=== PATIENT | male | born 1960 | race Caucasian/White ===

== ENCOUNTER 2020-03-02 11:49 | Emergency (ER) | payer MEDICAID, SELFPAY ==
--- NOTE | 2020-03-02 | ECG_ITS ---
Test Reason : WEAKNESS Blood Pressure : / mmHG Vent. Rate : 074 BPM Atrial Rate : 074 BPM P-R Int : 162 ms QRS Dur : 090 ms QT Int : 456 ms P-R-T Axes : 043 031 030 degrees QTc Int : 506 ms Normal sinus rhythm Prolonged QT Abnormal ECG When compared with ECG of 30-JAN-2020 15:24, Vent. rate has decreased BY 75 BPM Nonspecific T wave abnormality no longer evident in Anterolateral leads QT has lengthened Referred By: Mayela Boland Electronically Signed By:DARSHAN RODRIGEZ
--- NOTE | 2020-03-02 | CT_ITS ---
EXAMINATION: CT ANGIOGRAM OF THE CHEST WITH AND WITHOUT CONTRAST (CT PULMONARY ANGIOGRAM FOR PE) CLINICAL INFORMATION: Reason for Exam SOB/CP, r/o PE COMPARISON: CT of the abdomen and pelvis from January 2020 and chest CTA June 2017 TECHNIQUE: Prior to contrast administration, noncontrast localization images were obtained. Subsequently, multidetector volumetric imaging was performed from the thoracic inlet to below the diaphragms following the administration of 71 mL Omnipaque 350 intravenous contrast. No contrast reaction reported Sagittal, coronal, and MIP oblique sagittal reformatted images were obtained on the CT workstation, uploaded to PACS, and reviewed. This CT examination was performed using dose optimization techniques as appropriate, variously including the following: *Automated exposure control *Adjustment of mA and/or kV according to patient size (this includes techniques or standardized protocols for targeted exams where dose is matched to indication/reason for exam; i.e. extremities or head) *Use of iterative reconstruction technique Total exam dose-length product 357 mGy-cm FINDINGS: QUALITY OF STUDY/CONTRAST BOLUS: Satisfactory. PULMONARY ARTERIES: No central or segmental pulmonary emboli. THORACIC AORTA: No aneurysm or dissection. LUNG: The lungs are clear. PLEURA: There is a small left pleural effusion. There is no right pleural effusion. MEDIASTINUM: Normal heart size. No pericardial effusion. No hilar or mediastinal lymphadenopathy. No evidence of septal bowing or right heart strain. CHEST WALL/AXILLA: No axillary or internal mammary lymphadenopathy. OSSEOUS STRUCTURES: There are left lateral fifth and sixth and left posterior ninth and 10th posterior rib fractures that appear recent. There are old right rib fractures. There is a T9 vertebral body compression fracture that appears unchanged from abdominal pelvic CT scans from January 2020. There is loss of height of the T3-T6, T11 and T12 vertebral bodies questionable for mild compression fractures versus Schmorl's nodes. These findings are new compared to old chest CT a from June 2017. UPPER ABDOMEN: There are 2 small stones in the upper pole of the right kidney. The liver appears cirrhotic. There are small peripheral calcifications in the right lobe of the liver. The gallbladder has been removed. The spleen has been removed. There are upper abdominal varices. There are postsurgical changes to the anterior abdominal wall. No reflux of contrast into the hepatic veins to suggest elevated right heart pressures. IMPRESSION: No evidence of pulmonary embolism. Small left pleural effusion. Recent appearing left rib fractures. VTE: negative
[2020-03-02 12:22] VITALS: BP 152/84; PULSE 75; RESP 16; O2SAT 98; BMI 29.7
--- NOTE | 2020-03-02 12:37 | ED.GENADULT ---
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 Pt here telling me is here for suture removal. He tells me he had sutures placed after his surgery and never followed up for removal. Of note, he signed out AMA from [facility] and then was admitted to this facility 02/06-02/09 for anemia, hypotension, liver cirrhosis and depression. He denies fevers/chills, but believes sutures may still be present at his surgica site. Does not recall his surgeons name and has not followed up outpatient. He does tell me for 3 days he has had some SOB with exertion, chest pain and cough. No leg or calf pain. Not on anticoagulation. Patient does tell me that he is continuing to use heroin. His last use was yesterday. He denies any history of IV drug abuse. Onset (ago): day(s) Location: chest Radiation: non-radiation Severity: mild Quality: sharp Pain Consistency: constant Exacerbating factors: movement Associated symptoms: cough and shortness of breath Treatments prior to arrival: none Related Data Allergies Allergy/AdvReac Type Severity Reaction Status Date / Time acetaminophen [From TYLENOL] Allergy Unknown UNK Unverified 02/12/20 16:33 codeine [CODEINE] Allergy Unknown RASH Unverified 02/12/20 16:33 pneumococcal vaccine Allergy Unknown PARALYSIS Unverified 02/12/20 16:33 [PNEUMOCOCCAL VACCINE] tuberculin, purified protein Allergy Unknown RASH Unverified 02/12/20 16:33 deriva [TUBERCULIN, PURIFIED PROTEIN DERIVA] venlafaxine [From EFFEXOR] AdvReac Unknown UNKNOWN Unverified 02/12/20 16:33 Review of Systems Review of Systems: Yes all other systems are reviewed and are negative Constitutional: Constitutional: Reports no additional constitutional complaints, Denies body ache(s), Denies chills, Denies fever(s), Denies headache(s) and Denies weakness Eyes: Eyes: Reports no additional eye complaints and Denies change in vision ENT: Reports system reviewed and no additional complaints, except as documented, Denies dizziness, Denies headache(s), Denies nasal congestion, Denies nasal discharge and Denies neck pain Cardiovascular: Cardiovascular: Reports no additional cardiovascular complaints, Reports chest pain, Denies claudication, Denies leg ulcers, Denies leg edema, Denies lightheadedness and Reports dyspnea on exertion Respiratory: Respiratory: Reports no additional respiratory complaints, Reports cough, Reports pain on inspiration and Reports dyspnea on exertion Gastrointestinal: Gastrointestinal: Reports no additional gastrointestinal complaints, Denies abdominal pain, Denies diarrhea, Denies nausea and Denies vomiting Musculoskeletal: Musculoskeletal: Reports no additional musculoskeletal complaints, Denies back pain, Denies joint swelling, Denies neck pain, Denies numbness and Denies tingling Integumentary/Breasts: Skin/Breast: Reports system reviewed and no additional complaints, except as docu and Denies rash Neurologic: Reports system reviewed and no additional complaints, except as documented, Denies Abnormal speech present, Denies dizziness, Denies headache(s), Denies numbness, Denies tingling and Denies weakness PMFSH Past Medical History Attestation statement: The following information was validated with the patient. Source: obtained from family and nursing notes reviewed Social History Social History Alcohol intake: never Smoking Status: Current every day smoker Smoked in Last 30 Days: Yes Use of substances other than those prescribed or required for medical reasons: Yes Substance Use Type: Crack/Cocaine, Heroin and Opiates Advance Directives: No Advance Directives Information Provided: No Physical Exam Vital Signs and I&O and Narrative: Vital Signs and I&O: Vital Signs Temp 98.0 F 03/02/20 14:16 Pulse 68 03/02/20 14:16 Resp 16 03/02/20 14:16 BP 148/78 H 03/02/20 14:16 Pulse Ox 97 03/02/20 14:16 Intake & Output 03/01/20 03/02/20 03/02/20 18:59 06:59 18:59 Weight 102.058 kg Body Mass Index 29.7 Const: General: cooperative, healthy appearing, comfortable and no acute distress Orientation/consciousness: patient oriented x3 Limitations: no limitations HENMT: Head: Yes normal to inspection Ears: hearing grossly normal bilaterally General nose exam: Normal external nose present Face and sinus: Yes normal facial exam Mouth: Normal oral and palatal mucosa present Throat: Yes posterior oropharynx normal Eyes: General: appearance normal, both eyes and all related structures Pupils: Equal, round and reactive pupils present Neck: Neck: Yes normal visual inspection Chest: Chest palpation & inspection: normal inspection of the chest and tenderness ( Worsened with deep breathing and palpation and movement) sternum Resp: Effort & Inspection: normal respiratory effort Auscultation: clear to auscultation bilaterally Cardio: Rate: regular rate Rhythm: regular rhythm Peripheral pulses: Peripheral pulses 2+ throughout GI: Inspection: Yes normal to inspection Palpation (GI): Soft to palpation and nontender Auscultation: normal bowel sounds Back/Spine/Pelvis: Thoracic/Lumbar Spine: thoracic and lumbar spine normal to inspection Skin: Other: midline healing surgical incision noted. No sutures present. There is 1 small area less than 1 mm of erythema shelter down the incisional site with no fluctuance or drainage noted. General skin exam: no rashes or lesions noted Neuro: General: patient oriented x3 Cranial nerves: Yes Equal, round and reactive pupils present Cognition (Neuro): normal cognition Speech: No Abnormal speech present Gait exam (Neuro): Normal gait present Motor exam (neuro): 5/5 motor strength present throughout Extrem: General: Yes normal to inspection Course Reevaluation(s) Reevaluation #1: Elevated D-dimer. CTA to rule out PE ordered Time: 14:24 Reevaluation #2: CTA Negative for PE. Chest x-ray, EKG unremarkable. All other labs unchanged from baseline. Troponin indeterminate range. Will plan for 3 hour troponin now. Time: 16:30 Reevaluation #3: Repeat troponin unchanged. Plan for discharge Medical Decision Making [facility] Narrative Medical decision making narrative: Patient is here with pleuritic chest pain, shortness of breath and cough for the last few days in the setting of a recent surgical procedure. He will need labs, EKG, chest x-ray and a D-dimer. 1800- Low concern for ACS with atypical symptoms, unremarkable EKG and 2 troponins which are indeterminate. Low concern for PE with negative CTA. Low concern for endocarditis with no leukocytosis, shift or fever. pain is more musculoskeletal on exam. Discussed findings with the patient. We discussed follow-up with the primary care doctor. His incisional site appears to be healing. There is 1 very small area of redness and I discussed using topical antibiotic ointment on this. We also discussed that he has missed his follow-up with his surgeon. He should resume follow-up as previously scheduled. Reviewed worrisome signs and symptoms and when to return to the emergency department. Comfortable discharge home. Lab Data Result diagrams: 03/02/20 13:29 03/02/20 13:29 Labs: Lab Results 03/02/20 03/02/20 03/02/20 Range/Units 13:29 13:29 13:29 WBC 7.0 (4.8-10.8) X10*3/uL RBC 3.95 L (4.60-5.80) X10*6/uL Hgb 11.3 L (14.0-18.0) g/dl Hct 36.0 L (42-52) % MCV 91.1 (80-98) fL MCH 28.6 (27.0-33.0) pg MCHC 31.4 (31.0-36.0) g/dl RDW 17.1 H (11.0-16.0) % Plt Count 294 (160-400) X10*3/uL MPV 10.4 (9.4-12.4) fL Immature Gran % (Auto) 0.1 (0.0-0.4) % Neut % (Auto) 56.4 (45-73) % Lymph % (Auto) 27.7 (20-40) % [place] % (Auto) 15.2 H (2-11) % Eos % (Auto) 0.3 (0-4) % Baso % (Auto) 0.3 (0-2) % Neut # (Auto) 3.9 (2.0-8.3) X10*3/uL Lymph # (Auto) 1.9 (1.2-4.9) X10*3/uL [place] # (Auto) 1.1 (0.1-1.2) X10*3/uL Eos # (Auto) 0.0 (0.0-0.4) X10*3/uL Baso # (Auto) 0.0 (0.0-0.2) X10*3/uL Abs Immat Gran (auto) 0.01 (0.00-0.03) X10*3/uL Absolute Nucleated RBC 0.000 (0.0-0.012) X10*3/uL Nucleated RBC % (auto) 0.0 (0.0-0.2) /100WBC PT 15.1 H (10.8-13.0) SEC INR 1.3 H (0.9-1.1) D-Dimer 1551 NG/ML Sodium 144 (135-145) mmol/L Potassium 4.0 (3.3-5.1) mmol/l Chloride 105 (96-108) mmol/L Carbon Dioxide 30 H (22-29) mmol/L Anion Gap 13 (12-20) BUN 11 (9-16) mg/dL Creatinine 0.64 (0.5-1.4) mg/dL Estim Creat Clear Calc 154.1 Estimated GFR > 60 Random Glucose 96 (60-115) mg/dL Calcium 8.8 (8.4-10.2) mg/dL Magnesium 1.7 (1.6-2.6) mg/dL Total Bilirubin 1.4 H (0.0-1.0) mg/dL Direct Bilirubin 0.8 H (0.0-0.5) mg/dL AST 55 H (5-37) U/L ALT 33 (0-40) U/L Alkaline Phosphatase 197 H (39-117) U/L Troponin I High Sens (<3.5-35.0) ng/L Total Protein 7.3 (6.5-8.0) g/dL Albumin 3.0 L (3.5-5.0) g/dL 03/02/20 03/02/20 Range/Units 13:29 16:47 WBC (4.8-10.8) X10*3/uL RBC (4.60-5.80) X10*6/uL Hgb (14.0-18.0) g/dl Hct (42-52) % MCV (80-98) fL MCH (27.0-33.0) pg MCHC (31.0-36.0) g/dl RDW (11.0-16.0) % Plt Count (160-400) X10*3/uL MPV (9.4-12.4) fL Immature Gran % (Auto) (0.0-0.4) % Neut % (Auto) (45-73) % Lymph % (Auto) (20-40) % [place] % (Auto) (2-11) % Eos % (Auto) (0-4) % Baso % (Auto) (0-2) % Neut # (Auto) (2.0-8.3) X10*3/uL Lymph # (Auto) (1.2-4.9) X10*3/uL [place] # (Auto) (0.1-1.2) X10*3/uL Eos # (Auto) (0.0-0.4) X10*3/uL Baso # (Auto) (0.0-0.2) X10*3/uL Abs Immat Gran (auto) (0.00-0.03) X10*3/uL Absolute Nucleated RBC (0.0-0.012) X10*3/uL Nucleated RBC % (auto) (0.0-0.2) /100WBC PT (10.8-13.0) SEC INR (0.9-1.1) D-Dimer NG/ML Sodium (135-145) mmol/L Potassium (3.3-5.1) mmol/l Chloride (96-108) mmol/L Carbon Dioxide (22-29) mmol/L Anion Gap (12-20) BUN (9-16) mg/dL Creatinine (0.5-1.4) mg/dL Estim Creat Clear Calc Estimated GFR Random Glucose (60-115) mg/dL Calcium (8.4-10.2) mg/dL Magnesium (1.6-2.6) mg/dL Total Bilirubin (0.0-1.0) mg/dL Direct Bilirubin (0.0-0.5) mg/dL AST (5-37) U/L ALT (0-40) U/L Alkaline Phosphatase (39-117) U/L Troponin I High Sens 6.0 6.9 (<3.5-35.0) ng/L Total Protein (6.5-8.0) g/dL Albumin (3.5-5.0) g/dL ECG Data Attestation: I personally reviewed and interpreted this ECG as follows: Interpretation: EKG 1409 shows NSR, Normal ST, Normal [place], prolonged QT 506 Discharge Plan Discharge Clinical Impression: Chest wall pain, Substance abuse Patient Disposition: Home, Self-Care Instructions: Chest Wall Pain (ED), Opioid Use Disorder (ED) Additional Instructions: It is very Important that you follow-up with your surgeon as previously recommended. Apply topical antibiotic ointment to your surgical incision site. Please stop using heroin. Call the Care Center tomorrow to get started on Suboxone as discussed. Referrals: [facility] [Primary Care Provider] - 2 days
[2020-03-02 13:34] LABS: MANUAL DIFF FLAG NO
[2020-03-02 13:36] LABS: Basophils Percent Auto 0.3 % (0-2); Eosinophils Percent Auto 0.3 % (0-4); Hemoglobin 11.3 g/dl (14.0-18.0); Imm Gran Abs Auto 0.01 X10*3/uL (0.00-0.03); Imm Gran Pct Auto 0.1 % (0.0-0.4); Lymphocytes Absolute Auto 1.9 X10*3/uL (1.2-4.9); Lymphocytes Percent Auto 27.7 % (20-40); Mean Corpuscular HGB Conc 31.4 g/dl (31.0-36.0); Mean Corpuscular Hemoglobin 28.6 pg (27.0-33.0); Mean Corpuscular Volume 91.1 fL (80-98); Mean Platelet Volume 10.4 fL (9.4-12.4); Monocytes Absolute Auto 1.1 X10*3/uL (0.1-1.2); Monocytes Percent Auto 15.2 % (2-11); Neutrophils Absolute Auto 3.9 X10*3/uL (2.0-8.3); Neutrophils Percent Auto 56.4 % (45-73); Platelet Count 294 X10*3/uL (160-400); Red Blood Count 3.95 X10*6/uL (4.60-5.80); Red Cell Distribution Width 17.1 % (11.0-16.0)
[2020-03-02 13:45] LABS: INTERNATIONAL NORM RATIO 1.3 (0.9-1.1); Prothrombin Time 15.1 SEC (10.8-13.0)
[2020-03-02 13:58] LABS: D Dimer 1551 NG/ML
[2020-03-02 14:09] LABS: Alanine Aminotransferase 33 U/L (0-40); Alkaline Phosphatase 197 U/L (39-117); Anion Gap 13 (12-20); Aspartate Amino Transferase 55 U/L (5-37); Bilirubin Direct 0.8 mg/dL (0.0-0.5); Bilirubin Total 1.4 mg/dL (0.0-1.0); Blood Urea Nitrogen 11 mg/dL (9-16); Calcium 8.8 mg/dL (8.4-10.2); Carbon Dioxide 30 mmol/L (22-29); Chloride 105 mmol/L (96-108); Creatinine Clr Calc Pharmacy 154.1; Estimated Glomerular Filt Rate > 60; Glucose Random 96 mg/dL (60-115); Magnesium 1.7 mg/dL (1.6-2.6); Sodium 144 mmol/L (135-145); Total Protein 7.3 g/dL (6.5-8.0)
[2020-03-02 14:16] VITALS: BP 148/78; PULSE 68; RESP 16; TEMP 36.7; O2SAT 97
[2020-03-02] MEDS: iohexoL 350 MG/ML 100 ML INFUS..BTL IV (15:04)
[2020-03-02 17:36] LABS: Troponin-I High Sensitivity 6.9 ng/L (<3.5-35.0)
[2020-03-02 17:49] VITALS: BP 144/72; PULSE 76; RESP 12; TEMP 36.7; O2SAT 97
== END 2020-03-02 18:11 | disposition home or self-care (01) ==
PROVIDERS: Nurse Practitioner Family; Emergency Provider Emergency Medicine
DX: R07.89 Other chest pain (principal); F11.10 Opioid abuse, uncomplicated; F14.90 Cocaine use, unspecified, uncomplicated; Z71.51 Drug abuse counseling and surveillance of drug abuser; F17.200 Nicotine dependence, unspecified, uncomplicated; Z71.6 Tobacco abuse counseling; Z48.02 Encounter for removal of sutures
CPT/HCPCS: 36415; 71275; 80048; 80076; 83735; 84484; 85025; 85379; 85610; 93005; 93010; 99284

== ENCOUNTER 2020-03-04 16:46 | Inpatient (IN) | payer OTHER, SELFPAY ==
--- NOTE | 2020-03-04 | XR_ITS ---
EXAMINATION: XR CHEST CLINICAL INFORMATION: Chest pain. Status post splenectomy. COMPARISON: CT chest 03/02/2020 TECHNIQUE: 2 views of the chest were obtained. FINDINGS: No significant abnormality is noted involving the heart, lungs, mediastinum, bony thorax or soft tissues. IMPRESSION: Unremarkable examination.
[2020-03-04 16:55] VITALS: BP 171/83; PULSE 67; RESP 16; TEMP 37.1; O2SAT 99; BMI 29.7
--- NOTE | 2020-03-04 18:42 | ECG_ITS ---
Test Reason : ETOH Blood Pressure : / mmHG Vent. Rate : 085 BPM Atrial Rate : 058 BPM P-R Int : 000 ms QRS Dur : 080 ms QT Int : 436 ms P-R-T Axes : 000 023 026 degrees QTc Int : 518 ms Atrial fibrillation Nonspecific ST abnormality Abnormal ECG When compared with ECG of 02-MAR-2020 14:09, Atrial fibrillation has replaced Sinus rhythm Referred By: Joycelyn Garcia Electronically Signed By:GREGG HOYT MD
[2020-03-04 20:49] LABS: MANUAL DIFF FLAG NO
[2020-03-04 20:52] VITALS: BP 123/75; PULSE 73; RESP 16; O2SAT 96
[2020-03-04 20:56] LABS: Basophils Percent Auto 0.4 % (0-2); Eosinophils Absolute Auto 0.2 X10*3/uL (0.0-0.4); Eosinophils Percent Auto 2.8 % (0-4); Hematocrit 36.1 % (42-52); Hemoglobin 11.8 g/dl (14.0-18.0); Imm Gran Abs Auto 0.01 X10*3/uL (0.00-0.03); Imm Gran Pct Auto 0.1 % (0.0-0.4); Lymphocytes Absolute Auto 3.2 X10*3/uL (1.2-4.9); Lymphocytes Percent Auto 42.3 % (20-40); Mean Corpuscular HGB Conc 32.7 g/dl (31.0-36.0); Mean Corpuscular Hemoglobin 29.6 pg (27.0-33.0); Mean Corpuscular Volume 90.5 fL (80-98); Mean Platelet Volume 10.6 fL (9.4-12.4); Monocytes Absolute Auto 1.3 X10*3/uL (0.1-1.2); Monocytes Percent Auto 17.7 % (2-11); Neutrophils Absolute Auto 2.7 X10*3/uL (2.0-8.3); Neutrophils Percent Auto 36.7 % (45-73); Red Blood Count 3.99 X10*6/uL (4.60-5.80); Red Cell Distribution Width 17.1 % (11.0-16.0); White Blood Count 7.5 X10*3/uL (4.8-10.8)
[2020-03-04 21:01] LABS: Platelet Count 215 X10*3/uL (160-400)
--- NOTE | 2020-03-04 21:15 | ED_ITS ---
HPI - Psych General Chief Complaint: Psychiatric Symptoms Stated Complaint: Crisis Time Seen by Provider: 03/04/20 18:41 Source: patient Mode of arrival: ambulatory Limitations: no limitations History of Present Illness HPI Narrative: patient presents with suicidal ideation, and chest pain. States the chest pain is intermittent and is status post splenectomy On January 30, 2020. he does not describe plan but states to be depressed and has not taken his medication as scheduled. He does have bilateral lower extremity swelling per baseline, and reports to have a distant history of atrial fibrillation. Patient denies palpitations, shortness of breath, abdominal pain, abdominal distention, dysuria, hematuria, and headache. MD complaint: suicidal ideation, feels depressed and anxiety Onset (ago): day(s) Duration: constant History of same: Yes Relieving factors: none Exacerbating factors: none Associated psychiatric symptoms: depression, suicidal ideation and racing thoughts Associated symptoms: denies other symptoms Treatments prior to arrival: none If self harm: admits thoughts of self harm Related Data Allergies Allergy/AdvReac Type Severity Reaction Status Date / Time acetaminophen [From TYLENOL] Allergy Unknown UNK Verified 03/04/20 16:58 codeine [CODEINE] Allergy Unknown RASH Verified 03/04/20 16:58 pneumococcal vaccine Allergy Unknown PARALYSIS Verified 03/04/20 16:58 [PNEUMOCOCCAL VACCINE] tuberculin, purified protein Allergy Unknown RASH Verified 03/04/20 16:58 deriva [TUBERCULIN, PURIFIED PROTEIN DERIVA] venlafaxine [From EFFEXOR] AdvReac Unknown UNKNOWN Verified 03/04/20 16:58 Review of Systems 2 Review of Systems: Constitutional: No Fever, No Chills ENT/Mouth: No Ear Pain, No Nasal Congestion, No sore throat Eyes: No Eye Pain, No Swelling, No Redness Cardiovascular: Reports chest pain, No SOB Respiratory: No Cough, No Sputum, No Dyspnea Gastrointestinal: No Nausea, No Vomiting, No Diarrhea, No Hematochezia, No Melena Genitourinary: No Dysuria, No Urinary Frequency, No Hematuria Musculoskeletal: No Myalgias Skin: No Skin Lesions, No rash Neuro: No Weakness, No Numbness, No Paresthesias, No Dizziness, No Headache Psych: positive Anxiety, positive Depression, positive SI/HI Heme/Lymph: No Lymphadenopathy Endocrine: No Polyuria, No Polydipsia PMFSH Past Medical History Attestation statement: The following information was validated with the patient. Source: old records reviewed Medical History Anxiety Depression Diabetes HTN (hypertension) Suicidal ideations Social History Social History Alcohol intake: never Smoking Status: Current every day smoker Substance Use Type: Crack/Cocaine, Heroin and Opiates Advance Directives: No Advance Directives Information Provided: No Physical Exam Vital Signs and I&O and Narrative: Vital Signs and I&O: Vital Signs Temp 98.7 F 03/04/20 16:55 Pulse 74 03/04/20 23:23 Resp 18 03/05/20 00:00 BP 141/71 H 03/04/20 23:23 Pulse Ox 97 03/04/20 23:23 Intake & Output 03/04/20 03/04/20 03/05/20 06:59 18:59 06:59 Weight 102.058 kg Body Mass Index 29.7 Appearance: Alert. Oriented X3. No acute distress. Eyes: Pupils equal, round and reactive to light. ENT: Pharynx normal. Neck: Normal inspection. Neck supple. CVS: Normal heart rate and rhythm. Pulses normal. Respiratory: No respiratory distress. Breath sounds normal. Abdomen: Soft and nontender. Skin: Skin warm and dry. Normal skin color. Normal skin turgor. Extremities: No lower extremity edema. No lower extremity edema. Neuro: Oriented X 3. No motor deficit. No sensory deficit. Course Course Course Narrative: 59-year-old male presents with suicidal ideation and chest pain, status post splenectomy on 01/30/2020. We will rule out ACS, infection, drug abuse. EKG shows AFib with nonspecific ST wave abnormality with prolonged QT interval. troponin is 6.7 which is an improvement from prior EKG troponin on 03/02/2020 which was 6.9, urinalysis is positive for opioids, H&H is 11.8/36.1 which has improved from 03/02/2020. At this time patient is medically cleared, BHN consult pending. MDM - Psych MDM Narrative Medical decision making narrative: Chest pain, rule out ACS Differential Diagnosis Differential diagnosis: Likely acute psychosis, suicidal ideation, bipolar disorder, depression, drug-induced psychotic disorder, acute anxiety and substance abuse Restraints Face to Face Assessment: Face to Face Assessment: Current Situation: After assessment of the patient, a review of the pertinent medical record and a discussion with nursing staff, I feel the patient requires a restrain intervention. Reaction To: [] Medical Condition: [] Behavioral State: [] Continued Need: [] Lab Data Attestation: I reviewed the patient's lab results. Result diagrams: 03/04/20 20:44 Labs: Lab Results 03/04/20 03/04/20 03/04/20 Range/Units 20:44 20:44 20:44 WBC 7.5 (4.8-10.8) X10*3/uL RBC 3.99 L (4.60-5.80) X10*6/uL Hgb 11.8 L (14.0-18.0) g/dl Hct 36.1 L (42-52) % MCV 90.5 (80-98) fL MCH 29.6 (27.0-33.0) pg MCHC 32.7 (31.0-36.0) g/dl RDW 17.1 H (11.0-16.0) % Plt Count 215 D (160-400) X10*3/uL MPV 10.6 (9.4-12.4) fL Immature Gran % (Auto) 0.1 (0.0-0.4) % Neut % (Auto) 36.7 L (45-73) % Lymph % (Auto) 42.3 H (20-40) % [place] % (Auto) 17.7 H (2-11) % Eos % (Auto) 2.8 (0-4) % Baso % (Auto) 0.4 (0-2) % Lymph # (Auto) 3.2 (1.2-4.9) X10*3/uL [place] # (Auto) 1.3 H (0.1-1.2) X10*3/uL Eos # (Auto) 0.2 (0.0-0.4) X10*3/uL Baso # (Auto) 0.0 (0.0-0.2) X10*3/uL Abs Immat Gran (auto) 0.01 (0.00-0.03) X10*3/uL Absolute Neuts (auto) 2.7 (2.0-8.3) X10*3/uL Absolute Nucleated RBC 0.000 (0.0-0.012) X10*3/uL Nucleated RBC % (auto) 0.0 (0.0-0.2) /100WBC Troponin I High Sens 6.7 (<3.5-35.0) ng/L Urine Opiates Screen (Not Detect) Ur Barbiturates Screen (Not Detect) Ur Phencyclidine Scrn (Not Detect) Ur Amphetamines Screen (Not Detect) U Benzodiazepines Scrn (Not Detect) Urine Cocaine Screen (Not Detect) U Marijuana (THC) Screen (Not Detect) Ethyl Alcohol < 10 mg/dL 03/04/20 Range/Units 23:46 WBC (4.8-10.8) X10*3/uL RBC (4.60-5.80) X10*6/uL Hgb (14.0-18.0) g/dl Hct (42-52) % MCV (80-98) fL MCH (27.0-33.0) pg MCHC (31.0-36.0) g/dl RDW (11.0-16.0) % Plt Count (160-400) X10*3/uL MPV (9.4-12.4) fL Immature Gran % (Auto) (0.0-0.4) % Neut % (Auto) (45-73) % Lymph % (Auto) (20-40) % [place] % (Auto) (2-11) % Eos % (Auto) (0-4) % Baso % (Auto) (0-2) % Lymph # (Auto) (1.2-4.9) X10*3/uL [place] # (Auto) (0.1-1.2) X10*3/uL Eos # (Auto) (0.0-0.4) X10*3/uL Baso # (Auto) (0.0-0.2) X10*3/uL Abs Immat Gran (auto) (0.00-0.03) X10*3/uL Absolute Neuts (auto) (2.0-8.3) X10*3/uL Absolute Nucleated RBC (0.0-0.012) X10*3/uL Nucleated RBC % (auto) (0.0-0.2) /100WBC Troponin I High Sens (<3.5-35.0) ng/L Urine Opiates Screen POSITIVE H (Not Detect) Ur Barbiturates Screen Not Detected (Not Detect) Ur Phencyclidine Scrn Not Detected (Not Detect) Ur Amphetamines Screen Not Detected (Not Detect) U Benzodiazepines Scrn Not Detected (Not Detect) Urine Cocaine Screen Not Detected (Not Detect) U Marijuana (THC) Screen Not Detected (Not Detect) Ethyl Alcohol mg/dL Imaging Data Chest x-ray: Attestation: I personally reviewed and interpreted this imaging study as follows: Radiologist's impression: FINDINGS: No significant abnormality is noted involving the heart, lungs, mediastinum, bony thorax or soft tissues. IMPRESSION: Unremarkable examination. ECG Data Attestation: I personally reviewed and interpreted this ECG as follows: ECG interpretation date: 03/04/20 ECG interpretation time: 19:20 Prior ECG tracings: available for review Interpretation: EKGRate: 85 Rhythm: AFib ST T wave : nonspecific ST wave abnormality, no indication of ischemia ST elevation or depression qTC: 518 When compared with ECG of 02-MAR-2020 14:09, Atrial fibrillation has replaced Sinus rhythm Discharge Plan Discharge Clinical Impression: Suicidal ideation
[2020-03-04 21:18] LABS: Ethanol < 10 mg/dL
[2020-03-04 21:26] LABS: Troponin-I High Sensitivity 6.7 ng/L (<3.5-35.0)
[2020-03-04 23:23] VITALS: BP 141/71; PULSE 74; RESP 14; O2SAT 97
[2020-03-05] VITALS (8 sets, daily range): BP systolic 97–159; BP diastolic 43–82; PULSE 67–77; RESP 18; TEMP 36.6–36.8; O2SAT 96–97
[2020-03-05 00:29] LABS: Amphetamine Screen Urine Not Detected (Not Detect); Barbiturates, Urine Not Detected (Not Detect); Benzodiazepines Screen Urine Not Detected (Not Detect); Cannabinoid Screen Urine Not Detected (Not Detect); Cocaine Screen Urine Not Detected (Not Detect); Opiate Screen Urine POSITIVE (Not Detect); Phencyclidine Screen Urine Not Detected (Not Detect)
--- NOTE | 2020-03-05 03:46 | PC.NURSE ---
PT RESTING IN BED EYES CLOSED, SKIN PWD RESPIRATIONS EVEN UNLABORED. AWAITING BHN EVAL. AWARE OF PLAN OF CARE.
--- NOTE | 2020-03-05 07:41 | PC.NURSE ---
report taken from Lissette madisno. pt awake a+ox3 lying on stretcher, sitter in place, awaiting jerry bradford today.
--- NOTE | 2020-03-05 09:42 | MHC.CARE ---
CARE Team completed a assessment on Pt due to not being referred to N via fax and phone call on 03/04/20. Pt will be a inpatient bed search through the CARE Team
--- NOTE | 2020-03-05 09:55 | PC.NURSE ---
INTRODUCED SELF TO PT. PT INQUIRING ABOUT MEDS. CONTACTED [facility] FOR [facility], RELEASE OF INFO FAXED OVER REQUESTED. AWAITING RESPONSE. PT IN NAD,NO OBVIOUS SXS OR COMPLAINTS OF OPI DETOX AT THIS TIME.
--- NOTE | 2020-03-05 10:17 | PC.NURSE ---
SITTER AT BEDSIDE
--- NOTE | 2020-03-05 12:05 | PC.NURSE ---
PT RESTING IN STRETCHER IN HALLWAY, IN NAD. ORDER IN FOR MED REC.
--- NOTE | 2020-03-05 14:25 | PC.NURSE ---
PT GIVEN RAPID COVID SWAB AFTER NUMEROUS ATTEMPTS, SPECIMEN WAS NOT REGISTERING IN LAB SYSTEM. SENT DOWN WITH PATIENT STICKERS, NARA SUBMITTED TO IT.
--- NOTE | 2020-03-05 14:26 | PC.NURSE ---
PT DENIES SI/HI AT THIS TIME. REPORTS HAVING RELAPSED ON HEROIN 2 DAYS AGO AFTER NO SUBSTANCE USE FOR 7 MONTHS. DENIES ETOH, DENIES OTHER SUBSTANCES, CORROBORATED BY VILLAVICENCIO. STITCHES RECENTLY DISINTEGRATED FROM CHOLECYSTECTOMY. WOUND IS APPROXIMATED, NO REDNESS, SWELLING, DRAINAGE. PT ATE 100% OF HIS LUNCH. AWAITING COVID SWAB RESULT TO BE ADMITTED TO .
[2020-03-05 15:30] LABS: SARS COV2 PCR INHOUSE NEGATIVE (Negative)
--- NOTE | 2020-03-05 15:55 | PC.NURSE ---
RN TO RN REPORT GIVEN TO M5. PHARMACY CONTACGTED REGARDING ABSENCE OF MED REC.
--- NOTE | 2020-03-05 16:54 | MHC.CARE ---
CARE Team meets with pt in order to present CV, which pt is familiar with from prior inpatient admissions and signs. Belongings list in pt's chart reflects that belongings including shoes, clothing and hat were placed in locker 10. Two bags of belongings in locker 10 are not labeled with pt's info. CARE Team communicates this with pod nurse, as well as ED charge nurse and staff on M5. Pt identified that items in these bags were his and they were brought to M5 with patient.
[2020-03-06 01:15] VITALS: BP 145/92; PULSE 79; TEMP 35.8
[2020-03-06] MEDS: QUEtiapine Fumarate 200 MG TABLET PO ×2 (01:15→20:01)
[2020-03-06] MEDS: TiZANidine HCL 4 MG TABLET PO ×2 (01:15→17:28)
[2020-03-06] MEDS: Gabapentin 400 MG CAPSULE 800 MG PO ×4 (01:15→20:01)
[2020-03-06] MEDS: clonazePAM 1 MG TABLET PO ×4 (01:15→20:01)
[2020-03-06 08:43] LABS: Cholesterol 105 mg/dL; HDL Cholesterol 29 mg/dL; LDL Cholesterol Calculated 66 mg/dl; Triglycerides 50 mg/dL
[2020-03-06 08:48] VITALS: BP 120/67; PULSE 60
[2020-03-06] MEDS: Omeprazole 40 MG CAPSULE.DR PO (08:48)
[2020-03-06] MEDS: Midodrine HCl 5 MG TABLET PO ×3 (08:48→17:24)
[2020-03-06 09:09] LABS: Estimated Average Glucose 100 mg/dL; Hemoglobin A1c % 5.1 %
[2020-03-06 10:00] VITALS: BP 120/67; PULSE 60; TEMP 36.4
[2020-03-06 13:50] VITALS: PULSE 72
[2020-03-06 14:17] VITALS: BMI 65.4
--- NOTE | 2020-03-06 15:15 | PC.ADMIT ---
PT IS A 59 Y/O MALE ADMITTED 03/05 [place] [facility] [place]ELF PRESENTING WITH SI AT 1645. PT HAS A DX ODF MAJOR DEPRESSION D/O, OPIOID USE D/O. PT REPORTS BEING SOBER FOR MONTHS, BUT THEN HAD SOME, PTSD, AND USED AGAIN FOR TWO DAYS. PT REPORTS GOING OFF OF HIS PRESCRIBED MEDICATIONS 3 DAYS AGO. PT PRESENTED DEPRESSED WITH A FLAT AFFECT. PT HAS HAD A DECREASE IN APPETITE AND SLEEP. PT DENIES AH/VH/HI. PT HAS CHRONIC PAIN IN LOWER BACK. PT HAD RECENT SURGERY FOR A LACERATION IN HIS SPLEEN OF UNKNOWN ORIGIN. MEDICATIONS ORDERED, PT SEEN BY . PT ADMITTED ON A CV AND ID HOPEFUL TO GET INTO A CSS PROGRAM. PT CALM AND COOPERATIVE
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
[2020-03-06 19:01] VITALS: PULSE 73; RESP 133; TEMP 35.9
[2020-03-07] MEDS: TiZANidine HCL 4 MG TABLET PO ×3 (05:58→16:11)
[2020-03-07 06:57] VITALS: BP 134/79; PULSE 75; TEMP 36.2
[2020-03-07] MEDS: Gabapentin 400 MG CAPSULE 800 MG PO ×3 (09:10→20:08)
[2020-03-07 09:13] VITALS: BP 134/79; PULSE 75
[2020-03-07] MEDS: clonazePAM 1 MG TABLET PO ×3 (09:13→20:08)
[2020-03-07] MEDS: Midodrine HCl 5 MG TABLET PO ×3 (09:13→16:04)
[2020-03-07] MEDS: Omeprazole 40 MG CAPSULE.DR PO (09:14)
[2020-03-07] MEDS: Acetaminophen 325 MG TABLET 650 MG PO (09:26)
[2020-03-07 09:33] VITALS: BP 134/79; PULSE 75; TEMP 36.2
[2020-03-07] MEDS: Buprenorphine/Naloxone 4/1 mg FILM 1 FILM SUBLINGUAL ×2 (12:15→14:26)
[2020-03-07 12:30] VITALS: BP 109/54; PULSE 62
--- NOTE | 2020-03-07 15:13 | HO.PSYCHPN ---
Subjective Subjective Date of Service: 03/07/20 Reason For Visit: Crisis Subjective Notes: Conditional Voluntary Interim History: Mirza was more uncomfortable today and he was complaining of WD symptoms. He looked distressed. Suboxone was initiated. He is otherwise withdrawn and states he feels depressed. Medication Compliance: Yes Side effects from medications: No Attending Groups: No Review of Systems Acute medical concerns: No Medical Review of Systems: unchanged Review of Systems Review of Systems Yes all other systems are reviewed and are negative Mental Status Exam Mental Status Exam Patient Appearance: Fatigued, Disheveled and Unkempt Patient Orientation: Person, Place, Time and Situation Level of Consciousness: Awake and Appropriate Patient Behavior: Appropriate, Passive and Poor Eye Contact Mood Description: Apathetic Affect Description: Apathetic Ability to Follow Directions: Good Speech Pattern: Monotone and Poor Articulation Memory Description: Intact Hallucinations: None Delusions: Not Present Thought Process: Rumination and Slowed Thinking Thought Content: positive for Poverty of Content, positive for Slowed Thinking, negative for Suicidal Ideation and negative for Homicidal Ideation Depressive Symptoms: Insomnia, Changes in Appetite, Loss of Int. in Activity, Unhappiness, Thoughts of /Suicide, Low Self Esteem and Loss of Energy Judgement: Poor Diagnostics Vital Signs (24Hr): Vital Signs - 24 hr 03/06/20 19:01 03/07/20 06:57 03/07/20 09:13 Temperature 96.7 F L 97.1 F Pulse Rate 73 75 75 Respiratory Rate 133 H Blood Pressure 134/79 134/79 03/07/20 09:33 03/07/20 12:30 Temperature 97.1 F Pulse Rate 75 62 Respiratory Rate Blood Pressure 134/79 109/54 L Body Mass Index 65.4 Labs Results: 03/04/20 20:44 Labs: Laboratory Results - last 48 hr 03/05/20 03/06/20 03/06/20 14:10 08:08 08:08 Estimat Average Glucose 100 Hemoglobin A1c % 5.1 Triglycerides 50 Cholesterol 105 LDL Cholesterol, Calc 66 HDL Cholesterol 29 Coronavirus (PCR) NEGATIVE Medications Medications Current Medications Generic Name Dose Route Start Last Admin Trade Name Freq PRN Reason Stop Dose Admin Acetaminophen 650 mg 03/05/20 23:59 03/07/20 09:26 Acetaminophen 325 Mg Tablet PO 650 mg Q6H PRN Administration Headache/Pain Mild Scale (1-3) Al Hydroxide/Mg Hydroxide 30 ml 03/05/20 23:59 Magnesium Hydrox/Alum Hydrox 30 Ml Oral.Susp PO Q6H PRN Heartburn/Nausea Buprenorphine/Naloxone 1 film 03/08/20 09:00 Buprenorphine/Naloxone 8/2 Mg Film SUBLINGUAL DAILY ELISEO Clonazepam 1 mg 03/05/20 23:59 03/07/20 14:26 Clonazepam 1 Mg Tablet PO 1 mg TID ELISEO Administration Fluoxetine HCl 20 mg 03/06/20 12:30 03/07/20 09:14 Fluoxetine Hcl 20 Mg/5 Ml Solution PO 20 mg DAILY ELISEO Administration Gabapentin 800 mg 03/05/20 23:59 03/07/20 14:26 Gabapentin 400 Mg Capsule PO 800 mg TID ELISEO Administration Hydroxyzine HCl 25 mg 03/05/20 23:59 Hydroxyzine Hcl 25 Mg Tablet PO BEDTIME PRN Anxiety Magnesium Hydroxide 30 ml 03/05/20 23:59 Milk Of Magnesia 30 Ml Oral.Susp PO DAILY PRN Constipation Midodrine 5 mg 03/06/20 08:00 03/07/20 12:30 Midodrine Hcl 5 Mg Tablet PO 5 mg TIDWM ELISEO Administration Omeprazole 40 mg 03/06/20 09:00 03/07/20 09:14 Omeprazole 40 Mg Capsule.Dr PO 40 mg DAILY ELISEO Administration Quetiapine Fumarate 50 mg 03/05/20 23:59 Quetiapine Fumarate 50 Mg Tablet PO TID PRN Anxiety Quetiapine Fumarate 200 mg 03/05/20 23:59 03/06/20 20:01 Quetiapine Fumarate 200 Mg Tablet PO 200 mg BEDTIME ELISEO Administration Tizanidine HCl 4 mg 03/05/20 23:59 03/07/20 09:27 Tizanidine Hcl 4 Mg Tablet PO 4 mg Q4H PRN Administration Muscle Spasm Trazodone HCl 50 mg 03/05/20 23:59 Trazodone Hcl 50 Mg Tablet PO BEDTIME PRN Insomnia Allergies Allergies Allergy/AdvReac Type Severity Reaction Status Date / Time acetaminophen [From TYLENOL] Allergy Unknown UNK Verified 03/04/20 16:58 codeine [CODEINE] Allergy Unknown RASH Verified 03/04/20 16:58 pneumococcal vaccine Allergy Unknown PARALYSIS Verified 03/04/20 16:58 [PNEUMOCOCCAL VACCINE] tuberculin, purified protein Allergy Unknown RASH Verified 03/04/20 16:58 deriva [TUBERCULIN, PURIFIED PROTEIN DERIVA] venlafaxine [From EFFEXOR] AdvReac Unknown UNKNOWN Verified 03/04/20 16:58 Assessment & Plan Assessment & Plan (1) Opioid use disorder, moderate, in controlled environment: Status: Acute Code(s): F11.20 - Opioid dependence, uncomplicated Assessment and Plan: In mild WD. Initiate suboxone Monitor (2) Major depress dis, severe: Status: Acute Code(s): F32.2 - Major depressive disorder, single episode, severe without psychotic features Assessment and Plan: CT medication without change Support Groups Greater than 50% of the session was spent on counseling and/or coordination of care Patient educated on: diagnosis and medication risk/benefits Informed Consent: further education needed Reason for contiued inpatient stay Substantial Risk for: rapid decompensation
[2020-03-07 16:04] VITALS: BP 126/69; PULSE 69
[2020-03-07 18:57] VITALS: BP 126/69; PULSE 69; TEMP 35.9
[2020-03-07] MEDS: QUEtiapine Fumarate 200 MG TABLET PO (20:08)
[2020-03-08] MEDS: TiZANidine HCL 4 MG TABLET PO ×4 (05:40→18:18)
[2020-03-08 06:00] VITALS: BP 132/72; PULSE 81; RESP 16; TEMP 36.1; O2SAT 99
[2020-03-08 06:57] VITALS: BP 109/60; PULSE 95; RESP 18; TEMP 36.2
[2020-03-08] MEDS: Gabapentin 400 MG CAPSULE 800 MG PO ×3 (08:24→20:58)
[2020-03-08] MEDS: Buprenorphine/Naloxone 8/2 mg FILM 1 FILM SUBLINGUAL (08:24)
[2020-03-08] MEDS: clonazePAM 1 MG TABLET PO ×3 (08:24→20:57)
[2020-03-08] MEDS: Omeprazole 40 MG CAPSULE.DR PO (08:24)
[2020-03-08] MEDS: Acetaminophen 325 MG TABLET 650 MG PO (08:31)
[2020-03-08] MEDS: Midodrine HCl 5 MG TABLET PO ×3 (08:31→17:37)
--- NOTE | 2020-03-08 10:06 | HO.PSYCHPN ---
Subjective Subjective Reason For Visit: Crisis Interim History: Mirza was more uncomfortable today and he was complaining of WD symptoms. He looked distressed seen in his room depressed withdrawn denies active SI complains of swelling in his lower extremities Mental Status Exam Mental Status Exam Patient Appearance: Fatigued, Disheveled and Unkempt Patient Orientation: Person, Place, Time and Situation Patient Behavior: Appropriate, Passive and Poor Eye Contact Mood Description: Apathetic Affect Description: Apathetic Ability to Follow Directions: Good Speech Pattern: Monotone and Poor Articulation Memory Description: Intact Diagnostics Vital Signs (24Hr): Vital Signs - 24 hr 03/07/20 12:30 03/07/20 16:04 03/07/20 18:57 Temperature 96.6 F L Pulse Rate 62 69 69 Respiratory Rate Blood Pressure 109/54 L 126/69 126/69 03/08/20 06:57 Temperature 97.1 F Pulse Rate 95 Respiratory Rate 18 Blood Pressure 109/60 Body Mass Index 65.4 Labs Results: 03/04/20 20:44 Medications Medications Current Medications Generic Name Dose Route Start Last Admin Trade Name Freq PRN Reason Stop Dose Admin Acetaminophen 650 mg 03/05/20 23:59 03/08/20 08:31 Acetaminophen 325 Mg Tablet PO 650 mg Q6H PRN Administration Headache/Pain Mild Scale (1-3) Al Hydroxide/Mg Hydroxide 30 ml 03/05/20 23:59 Magnesium Hydrox/Alum Hydrox 30 Ml Oral.Susp PO Q6H PRN Heartburn/Nausea Buprenorphine/Naloxone 1 film 03/08/20 09:00 03/08/20 08:24 Buprenorphine/Naloxone 8/2 Mg Film SUBLINGUAL 1 film DAILY ELISEO Administration Clonazepam 1 mg 03/05/20 23:59 03/08/20 08:24 Clonazepam 1 Mg Tablet PO 1 mg TID ELISEO Administration Fluoxetine HCl 20 mg 03/06/20 12:30 03/08/20 08:24 Fluoxetine Hcl 20 Mg/5 Ml Solution PO 20 mg DAILY ELISEO Administration Gabapentin 800 mg 03/05/20 23:59 03/08/20 08:24 Gabapentin 400 Mg Capsule PO 800 mg TID ELISEO Administration Hydroxyzine HCl 25 mg 03/05/20 23:59 Hydroxyzine Hcl 25 Mg Tablet PO BEDTIME PRN Anxiety Magnesium Hydroxide 30 ml 03/05/20 23:59 Milk Of Magnesia 30 Ml Oral.Susp PO DAILY PRN Constipation Midodrine 5 mg 03/06/20 08:00 03/08/20 08:31 Midodrine Hcl 5 Mg Tablet PO 5 mg TIDWM ELISEO Administration Omeprazole 40 mg 03/06/20 09:00 03/08/20 08:24 Omeprazole 40 Mg Capsule.Dr PO 40 mg DAILY ELISEO Administration Quetiapine Fumarate 50 mg 03/05/20 23:59 Quetiapine Fumarate 50 Mg Tablet PO TID PRN Anxiety Quetiapine Fumarate 200 mg 03/05/20 23:59 03/07/20 20:08 Quetiapine Fumarate 200 Mg Tablet PO 200 mg BEDTIME ELISEO Administration Tizanidine HCl 4 mg 03/05/20 23:59 03/08/20 09:33 Tizanidine Hcl 4 Mg Tablet PO 4 mg Q4H PRN Administration Muscle Spasm Trazodone HCl 50 mg 03/05/20 23:59 Trazodone Hcl 50 Mg Tablet PO BEDTIME PRN Insomnia Allergies Allergies Allergy/AdvReac Type Severity Reaction Status Date / Time acetaminophen [From TYLENOL] Allergy Unknown UNK Verified 03/04/20 16:58 codeine [CODEINE] Allergy Unknown RASH Verified 03/04/20 16:58 pneumococcal vaccine Allergy Unknown PARALYSIS Verified 03/04/20 16:58 [PNEUMOCOCCAL VACCINE] tuberculin, purified protein Allergy Unknown RASH Verified 03/04/20 16:58 deriva [TUBERCULIN, PURIFIED PROTEIN DERIVA] venlafaxine [From EFFEXOR] AdvReac Unknown UNKNOWN Verified 03/04/20 16:58 Assessment & Plan Assessment & Plan (1) Opioid use disorder, moderate, in controlled environment: Status: Acute Code(s): F11.20 - Opioid dependence, uncomplicated Assessment and Plan: In mild WD. Initiate suboxone Monitor u Trevor ilenedelma (2) Major depress dis, severe: Status: Acute Code(s): F32.2 - Major depressive disorder, single episode, severe without psychotic features Assessment and Plan: CT medication without change Support Groups CONTINUE GABAPENTIN Greater than 50% of the session was spent on counseling and/or coordination of care
[2020-03-08] MEDS: QUEtiapine Fumarate 50 MG TABLET PO (11:57)
[2020-03-08 17:05] VITALS: BP 110/53; PULSE 65; TEMP 36.5
[2020-03-08 17:37] VITALS: BP 110/53; PULSE 65
[2020-03-08 19:55] VITALS: BP 101/59; PULSE 60; RESP 19
[2020-03-08] MEDS: QUEtiapine Fumarate 200 MG TABLET PO (20:57)
--- NOTE | 2020-03-08 21:25 | PC.NURSE ---
Pt verbalized that he was having some pain in his legs early on in shift. Rated the pain a 4/10. Pt visibly has muscle weakness and his ROM bilaterally is limited. Skin is warm to touch with +2 pitting edema. From calf to ankle has a dark red appearance...dry cracked skin (tree-trunk appearance) Vitals have been WNL and afebrile. Nursing supervisor irrigation came in to give a second opinion and will continue to monitor vitals. Trevor stockings were ordered Q shift while awake. Pt was irritable and said that he no longer had any pain anywhere. Would not let T/W assess his gauze bandage from his reported splenectomy It's fine, I'm fine it was checked last and I am suppose to leave it on for another week . He further stated that he had it removed 3 weeks ago.
--- NOTE | 2020-03-09 09:14 | HO.PSYCHPN ---
Subjective Subjective Reason For Visit: Crisis Review of Systems Acute medical concerns: No Medical Review of Systems: unchanged Mental Status Exam Mental Status Exam Patient Appearance: Fatigued, Disheveled and Unkempt Patient Orientation: Person, Place, Time and Situation Patient Behavior: Appropriate, Passive and Poor Eye Contact Mood Description: Apathetic Affect Description: Apathetic Ability to Follow Directions: Good Speech Pattern: Monotone and Poor Articulation Memory Description: Intact Diagnostics Vital Signs (24Hr): Vital Signs - 24 hr 03/08/20 17:05 03/08/20 17:37 03/08/20 19:55 Temperature 97.7 F Pulse Rate 65 65 60 Respiratory Rate 19 Blood Pressure 110/53 L 110/53 L 101/59 L Body Mass Index 65.4 Labs Results: 03/04/20 20:44 Medications Medications Current Medications Generic Name Dose Route Start Last Admin Trade Name Freq PRN Reason Stop Dose Admin Acetaminophen 650 mg 03/05/20 23:59 03/08/20 08:31 Acetaminophen 325 Mg Tablet PO 650 mg Q6H PRN Administration Headache/Pain Mild Scale (1-3) Al Hydroxide/Mg Hydroxide 30 ml 03/05/20 23:59 Magnesium Hydrox/Alum Hydrox 30 Ml Oral.Susp PO Q6H PRN Heartburn/Nausea Buprenorphine/Naloxone 1 film 03/08/20 09:00 03/08/20 08:24 Buprenorphine/Naloxone 8/2 Mg Film SUBLINGUAL 1 film DAILY ELISEO Administration Clonazepam 1 mg 03/05/20 23:59 03/08/20 20:57 Clonazepam 1 Mg Tablet PO 1 mg TID ELISEO Administration Fluoxetine HCl 20 mg 03/06/20 12:30 03/08/20 08:24 Fluoxetine Hcl 20 Mg/5 Ml Solution PO 20 mg DAILY ELISEO Administration Gabapentin 800 mg 03/05/20 23:59 03/08/20 20:58 Gabapentin 400 Mg Capsule PO 800 mg TID ELISEO Administration Hydroxyzine HCl 25 mg 03/05/20 23:59 Hydroxyzine Hcl 25 Mg Tablet PO BEDTIME PRN Anxiety Magnesium Hydroxide 30 ml 03/05/20 23:59 Milk Of Magnesia 30 Ml Oral.Susp PO DAILY PRN Constipation Midodrine 5 mg 03/06/20 08:00 03/08/20 17:37 Midodrine Hcl 5 Mg Tablet PO 5 mg TIDWM ELISEO Administration Omeprazole 40 mg 03/06/20 09:00 03/08/20 08:24 Omeprazole 40 Mg Capsule.Dr PO 40 mg DAILY ELISEO Administration Quetiapine Fumarate 50 mg 03/05/20 23:59 03/08/20 11:57 Quetiapine Fumarate 50 Mg Tablet PO 50 mg TID PRN Administration Anxiety Quetiapine Fumarate 200 mg 03/05/20 23:59 03/08/20 20:57 Quetiapine Fumarate 200 Mg Tablet PO 200 mg BEDTIME ELISEO Administration Tizanidine HCl 4 mg 03/05/20 23:59 03/08/20 18:18 Tizanidine Hcl 4 Mg Tablet PO 4 mg Q4H PRN Administration Muscle Spasm Trazodone HCl 50 mg 03/05/20 23:59 Trazodone Hcl 50 Mg Tablet PO BEDTIME PRN Insomnia Allergies Allergies Allergy/AdvReac Type Severity Reaction Status Date / Time acetaminophen [From TYLENOL] Allergy Unknown UNK Verified 03/04/20 16:58 codeine [CODEINE] Allergy Unknown RASH Verified 03/04/20 16:58 pneumococcal vaccine Allergy Unknown PARALYSIS Verified 03/04/20 16:58 [PNEUMOCOCCAL VACCINE] tuberculin, purified protein Allergy Unknown RASH Verified 03/04/20 16:58 deriva [TUBERCULIN, PURIFIED PROTEIN DERIVA] venlafaxine [From EFFEXOR] AdvReac Unknown UNKNOWN Verified 03/04/20 16:58 Assessment & Plan Greater than 50% of the session was spent on counseling and/or coordination of care
[2020-03-09] MEDS: TiZANidine HCL 4 MG TABLET PO ×3 (09:16→20:47)
[2020-03-09] MEDS: QUEtiapine Fumarate 50 MG TABLET PO (09:16)
[2020-03-09] MEDS: Omeprazole 40 MG CAPSULE.DR PO (09:16)
[2020-03-09] MEDS: clonazePAM 1 MG TABLET PO ×3 (09:17→20:46)
[2020-03-09] MEDS: Buprenorphine/Naloxone 8/2 mg FILM 1 FILM SUBLINGUAL (09:17)
[2020-03-09] MEDS: Gabapentin 400 MG CAPSULE 800 MG PO ×3 (09:17→20:46)
[2020-03-09 09:22] VITALS: BP 132/72; PULSE 81
[2020-03-09] MEDS: Midodrine HCl 5 MG TABLET PO ×3 (09:22→17:24)
[2020-03-09 10:00] VITALS: BP 132/72; PULSE 81; TEMP 36.4
[2020-03-09 11:45] VITALS: BP 132/72; PULSE 81
--- NOTE | 2020-03-09 12:23 | P.PNPSI_ITS ---
Subjective Subjective Reason For Visit: Crisis Diagnostics Vital Signs (24Hr): Vital Signs - 24 hr 03/08/20 17:05 03/08/20 17:37 03/08/20 19:55 Temperature 97.7 F Pulse Rate 65 65 60 Respiratory Rate 19 Blood Pressure 110/53 L 110/53 L 101/59 L 03/09/20 09:22 03/09/20 10:00 03/09/20 11:45 Temperature 97.6 F Pulse Rate 81 81 81 Respiratory Rate Blood Pressure 132/72 132/72 132/72 Body Mass Index 65.4 Labs Results: 03/04/20 20:44 Medications Medications Current Medications Generic Name Dose Route Start Last Admin Trade Name Freq PRN Reason Stop Dose Admin Acetaminophen 650 mg 03/05/20 23:59 03/08/20 08:31 Acetaminophen 325 Mg Tablet PO 650 mg Q6H PRN Administration Headache/Pain Mild Scale (1-3) Al Hydroxide/Mg Hydroxide 30 ml 03/05/20 23:59 Magnesium Hydrox/Alum Hydrox 30 Ml Oral.Susp PO Q6H PRN Heartburn/Nausea Buprenorphine/Naloxone 1 film 03/08/20 09:00 03/09/20 09:17 Buprenorphine/Naloxone 8/2 Mg Film SUBLINGUAL 1 film DAILY ELISEO Administration Clonazepam 1 mg 03/05/20 23:59 03/09/20 09:17 Clonazepam 1 Mg Tablet PO 1 mg TID ELISEO Administration Fluoxetine HCl 20 mg 03/10/20 09:00 Fluoxetine Hcl 20 Mg Capsule PO DAILY ELISEO Gabapentin 800 mg 03/05/20 23:59 03/09/20 09:17 Gabapentin 400 Mg Capsule PO 800 mg TID ELISEO Administration Hydroxyzine HCl 25 mg 03/05/20 23:59 Hydroxyzine Hcl 25 Mg Tablet PO BEDTIME PRN Anxiety Magnesium Hydroxide 30 ml 03/05/20 23:59 Milk Of Magnesia 30 Ml Oral.Susp PO DAILY PRN Constipation Midodrine 5 mg 03/06/20 08:00 03/09/20 11:45 Midodrine Hcl 5 Mg Tablet PO 5 mg TIDWM ELISEO Administration Omeprazole 40 mg 03/06/20 09:00 03/09/20 09:16 Omeprazole 40 Mg Capsule.Dr PO 40 mg DAILY ELISEO Administration Quetiapine Fumarate 50 mg 03/05/20 23:59 03/09/20 09:16 Quetiapine Fumarate 50 Mg Tablet PO 50 mg TID PRN Administration Anxiety Quetiapine Fumarate 200 mg 03/05/20 23:59 03/08/20 20:57 Quetiapine Fumarate 200 Mg Tablet PO 200 mg BEDTIME ELISEO Administration Tizanidine HCl 4 mg 03/05/20 23:59 03/09/20 09:16 Tizanidine Hcl 4 Mg Tablet PO 4 mg Q4H PRN Administration Muscle Spasm Trazodone HCl 50 mg 03/05/20 23:59 Trazodone Hcl 50 Mg Tablet PO BEDTIME PRN Insomnia Allergies Allergies Allergy/AdvReac Type Severity Reaction Status Date / Time acetaminophen [From TYLENOL] Allergy Unknown UNK Verified 03/04/20 16:58 codeine [CODEINE] Allergy Unknown RASH Verified 03/04/20 16:58 pneumococcal vaccine Allergy Unknown PARALYSIS Verified 03/04/20 16:58 [PNEUMOCOCCAL VACCINE] tuberculin, purified protein Allergy Unknown RASH Verified 03/04/20 16:58 deriva [TUBERCULIN, PURIFIED PROTEIN DERIVA] venlafaxine [From EFFEXOR] AdvReac Unknown UNKNOWN Verified 03/04/20 16:58 Assessment & Plan Assessment & Plan (1) Major depress dis, severe: Status: Acute Code(s): F32.2 - Major depressive disorder, single episode, severe without psychotic f eatures (2) Opioid use disorder, moderate, in controlled environment: Status: Acute Code(s): F11.20 - Opioid dependence, uncomplicated Greater than 50% of the session was spent on counseling and/or coordination of care
--- NOTE | 2020-03-09 12:29 | HO.PSYCHPN ---
Subjective Subjective Reason For Visit: Crisis Diagnostics Vital Signs (24Hr): Vital Signs - 24 hr 03/08/20 17:05 03/08/20 17:37 03/08/20 19:55 Temperature 97.7 F Pulse Rate 65 65 60 Respiratory Rate 19 Blood Pressure 110/53 L 110/53 L 101/59 L 03/09/20 09:22 03/09/20 10:00 03/09/20 11:45 Temperature 97.6 F Pulse Rate 81 81 81 Respiratory Rate Blood Pressure 132/72 132/72 132/72 Body Mass Index 65.4 Labs Results: 03/04/20 20:44 Medications Medications Current Medications Generic Name Dose Route Start Last Admin Trade Name Freq PRN Reason Stop Dose Admin Acetaminophen 650 mg 03/05/20 23:59 03/08/20 08:31 Acetaminophen 325 Mg Tablet PO 650 mg Q6H PRN Administration Headache/Pain Mild Scale (1-3) Al Hydroxide/Mg Hydroxide 30 ml 03/05/20 23:59 Magnesium Hydrox/Alum Hydrox 30 Ml Oral.Susp PO Q6H PRN Heartburn/Nausea Buprenorphine/Naloxone 1 film 03/08/20 09:00 03/09/20 09:17 Buprenorphine/Naloxone 8/2 Mg Film SUBLINGUAL 1 film DAILY ELISEO Administration Clonazepam 1 mg 03/05/20 23:59 03/09/20 09:17 Clonazepam 1 Mg Tablet PO 1 mg TID ELISEO Administration Fluoxetine HCl 20 mg 03/10/20 09:00 Fluoxetine Hcl 20 Mg Capsule PO DAILY ELISEO Gabapentin 800 mg 03/05/20 23:59 03/09/20 09:17 Gabapentin 400 Mg Capsule PO 800 mg TID ELISEO Administration Hydroxyzine HCl 25 mg 03/05/20 23:59 Hydroxyzine Hcl 25 Mg Tablet PO BEDTIME PRN Anxiety Magnesium Hydroxide 30 ml 03/05/20 23:59 Milk Of Magnesia 30 Ml Oral.Susp PO DAILY PRN Constipation Midodrine 5 mg 03/06/20 08:00 03/09/20 11:45 Midodrine Hcl 5 Mg Tablet PO 5 mg TIDWM ELISEO Administration Omeprazole 40 mg 03/06/20 09:00 03/09/20 09:16 Omeprazole 40 Mg Capsule.Dr PO 40 mg DAILY ELISEO Administration Quetiapine Fumarate 50 mg 03/05/20 23:59 03/09/20 09:16 Quetiapine Fumarate 50 Mg Tablet PO 50 mg TID PRN Administration Anxiety Quetiapine Fumarate 200 mg 03/05/20 23:59 03/08/20 20:57 Quetiapine Fumarate 200 Mg Tablet PO 200 mg BEDTIME ELISEO Administration Tizanidine HCl 4 mg 03/05/20 23:59 03/09/20 09:16 Tizanidine Hcl 4 Mg Tablet PO 4 mg Q4H PRN Administration Muscle Spasm Trazodone HCl 50 mg 03/05/20 23:59 Trazodone Hcl 50 Mg Tablet PO BEDTIME PRN Insomnia Allergies Allergies Allergy/AdvReac Type Severity Reaction Status Date / Time acetaminophen [From TYLENOL] Allergy Unknown UNK Verified 03/04/20 16:58 codeine [CODEINE] Allergy Unknown RASH Verified 03/04/20 16:58 pneumococcal vaccine Allergy Unknown PARALYSIS Verified 03/04/20 16:58 [PNEUMOCOCCAL VACCINE] tuberculin, purified protein Allergy Unknown RASH Verified 03/04/20 16:58 deriva [TUBERCULIN, PURIFIED PROTEIN DERIVA] venlafaxine [From EFFEXOR] AdvReac Unknown UNKNOWN Verified 03/04/20 16:58 Assessment & Plan Assessment & Plan (1) Opioid use disorder, moderate, in controlled environment: Status: Acute Code(s): F11.20 - Opioid dependence, uncomplicated (2) Major depress dis, severe: Status: Acute Code(s): F32.2 - Major depressive disorder, single episode, severe without psychotic features Greater than 50% of the session was spent on counseling and/or coordination of care
--- NOTE | 2020-03-09 14:19 | HO.PHPPROGNO ---
Subjective Subjective Reason For Visit: Crisis Diagnostics Vital Signs (24Hr): Vital Signs - 24 hr 03/08/20 17:05 03/08/20 17:37 03/08/20 19:55 Temperature 97.7 F Pulse Rate 65 65 60 Respiratory Rate 19 Blood Pressure 110/53 L 110/53 L 101/59 L 03/09/20 09:22 03/09/20 10:00 03/09/20 11:45 Temperature 97.6 F Pulse Rate 81 81 81 Respiratory Rate Blood Pressure 132/72 132/72 132/72 Body Mass Index 65.4 Labs Results: 03/04/20 20:44 Assessment & Plan Certification I certify that partial hospital treatment is medically necessary due to the symptoms and problems resulting from the patient's mental illness and the failure to treat the patient at the partial hospital level of care would likely result in the patient requiring inpatient psychiatric care which could not be prevented at a less intensive level of care. Greater than 50% of the session was spent on counseling and/or coordination of care Discharge Plan Discharge Referrals: Physician,Unknown [Primary Care Provider] - Discharge Medications: No Action B Complex Tablet Extended Release 1 tab PO DAILY RF: 0 tizanidine 4 mg Tablet 4 mg PO Q4H PRN (Reason: Muscle Spasm) RF: 0 fluoxetine 10 mg Tablet 30 mg PO DAILY RF: 0 quetiapine 200 mg Tablet 200 mg PO BEDTIME RF: 0 clonazepam 1 mg Tablet 1 mg PO TID RF: 0 midodrine 5 mg Tablet 5 mg PO TIDWM RF: 0 omeprazole 40 mg Capsule,Delayed Release(Dr/Ec) 40 mg PO DAILY RF: 0 gabapentin 800 mg Tablet 800 mg PO TID RF: 0 quetiapine 50 mg Tablet 50 mg PO TID PRN (Reason: Anxiety) RF: 0
--- NOTE | 2020-03-09 14:48 | P.PNPSI_ITS ---
Subjective Subjective Date of Service: 03/09/20 Reason For Visit: Crisis Subjective Notes: Conditional Voluntary Interim History: Mirza was feeling a little better today. He has put RAHEEM stockings on and this has helped with his chronic venous stasis. He allowed nursing to change the dressing on his abdomen and it is healing well. He is eating better. He is able to be up and about more. He has no WD. He remains quite deconditioned from his surgery. Medication Compliance: Yes Side effects from medications: No Attending Groups: Intermittent Review of Systems Review of Systems Yes all other systems are reviewed and are negative Mental Status Exam Mental Status Exam Patient Appearance: Fatigued, Disheveled and Unkempt Patient Orientation: Person, Place, Time and Situation Patient Behavior: Appropriate, Passive and Poor Eye Contact Mood Description: Apathetic Affect Description: Apathetic Ability to Follow Directions: Good Speech Pattern: Monotone and Poor Articulation Memory Description: Intact Delusions: Not Present Thought Process: Rumination and Goal Oriented Thought Content: positive for Goal Oriented, negative for Suicidal Ideation and negative for Homicidal Ideation Depressive Symptoms: Increased Anxiety, Diff. Making Decisions, Increased Fatigue and Loss of Energy Diagnostics Vital Signs (24Hr): Vital Signs - 24 hr 03/08/20 17:05 03/08/20 17:37 03/08/20 19:55 Temperature 97.7 F Pulse Rate 65 65 60 Respiratory Rate 19 Blood Pressure 110/53 L 110/53 L 101/59 L 03/09/20 09:22 03/09/20 10:00 03/09/20 11:45 Temperature 97.6 F Pulse Rate 81 81 81 Respiratory Rate Blood Pressure 132/72 132/72 132/72 Body Mass Index 65.4 Labs Results: 03/04/20 20:44 Medications Medications Current Medications Generic Name Dose Route Start Last Admin Trade Name Freq PRN Reason Stop Dose Admin Acetaminophen 650 mg 03/05/20 23:59 03/08/20 08:31 Acetaminophen 325 Mg Tablet PO 650 mg Q6H PRN Administration Headache/Pain Mild Scale (1-3) Al Hydroxide/Mg Hydroxide 30 ml 03/05/20 23:59 Magnesium Hydrox/Alum Hydrox 30 Ml Oral.Susp PO Q6H PRN Heartburn/Nausea Buprenorphine/Naloxone 1 film 03/08/20 09:00 03/09/20 09:17 Buprenorphine/Naloxone 8/2 Mg Film SUBLINGUAL 1 film DAILY ELISEO Administration Clonazepam 1 mg 03/05/20 23:59 03/09/20 14:38 Clonazepam 1 Mg Tablet PO 1 mg TID ELISEO Administration Fluoxetine HCl 20 mg 03/10/20 09:00 Fluoxetine Hcl 20 Mg Capsule PO DAILY ELISEO Gabapentin 800 mg 03/05/20 23:59 03/09/20 14:38 Gabapentin 400 Mg Capsule PO 800 mg TID ELISEO Administration Hydroxyzine HCl 25 mg 03/05/20 23:59 Hydroxyzine Hcl 25 Mg Tablet PO BEDTIME PRN Anxiety Magnesium Hydroxide 30 ml 03/05/20 23:59 Milk Of Magnesia 30 Ml Oral.Susp PO DAILY PRN Constipation Midodrine 5 mg 03/06/20 08:00 03/09/20 11:45 Midodrine Hcl 5 Mg Tablet PO 5 mg TIDWM ELISEO Administration Omeprazole 40 mg 03/06/20 09:00 03/09/20 09:16 Omeprazole 40 Mg Capsule.Dr PO 40 mg DAILY ELISEO Administration Quetiapine Fumarate 50 mg 03/05/20 23:59 03/09/20 09:16 Quetiapine Fumarate 50 Mg Tablet PO 50 mg TID PRN Administration Anxiety Quetiapine Fumarate 200 mg 03/05/20 23:59 03/08/20 20:57 Quetiapine Fumarate 200 Mg Tablet PO 200 mg BEDTIME ELISEO Administration Tizanidine HCl 4 mg 03/05/20 23:59 03/09/20 12:59 Tizanidine Hcl 4 Mg Tablet PO 4 mg Q4H PRN Administration Muscle Spasm Trazodone HCl 50 mg 03/05/20 23:59 Trazodone Hcl 50 Mg Tablet PO BEDTIME PRN Insomnia Allergies Allergies Allergy/AdvReac Type Severity Reaction Status Date / Time acetaminophen [From TYLENOL] Allergy Unknown UNK Verified 03/04/20 16:58 codeine [CODEINE] Allergy Unknown RASH Verified 03/04/20 16:58 pneumococcal vaccine Allergy Unknown PARALYSIS Verified 03/04/20 16:58 [PNEUMOCOCCAL VACCINE] tuberculin, purified protein Allergy Unknown RASH Verified 03/04/20 16:58 deriva [TUBERCULIN, PURIFIED PROTEIN DERIVA] venlafaxine [From EFFEXOR] AdvReac Unknown UNKNOWN Verified 03/04/20 16:58 Assessment & Plan Assessment & Plan (1) Major depress dis, severe: Status: Acute Code(s): F32.2 - Major depressive disorder, single episode, severe without psychotic fe atures (2) Opioid use disorder, moderate, in controlled environment: Status: Acute Code(s): F11.20 - Opioid dependence, uncomplicated Assessment and Plan: Mirza has been severely deconditioned after his surgery. He is underweight and exhausted. He is however perking up. He is tolerating suboxone. CT medication CT to encourage food and fluids. Ambulation. Consider STR * Greater than 50% of the session was spent on counseling and/or coordination of care Patient educated on: diagnosis, medication risk/benefits and substance abuse Informed Consent: further education needed Reason for contiued inpatient stay Substantial Risk for: harm to self and rapid decompensation
--- NOTE | 2020-03-09 15:40 | PC.NURSE ---
PT WAS SPENT INCREASED TIME OOB TODAY, TAKING MEDICATIONS, MAKING NEEDS KNOWN AND TO SHOWER. PT HAS LOW ACTIVITY TOLERANCE AT THIS TIME. PT HAS PITTING EDEMA IN BILATERAL LEGS, MD AWARE AND PT WEARING COMPRESSIONS STOCKINGS. PT C/O PAIN 9/10 IN THE R KNEE/CALF. PT ALLOWED DSG CHANGE ON ABDOMINE WHERE HE HAD A SPLEENECTOMY. WOUND HEALED,EXCEPT A 1CM X 1CM SCABBED AREA. DSG APPLIED.
[2020-03-09 17:24] VITALS: BP 137/76; PULSE 76
[2020-03-09 17:26] VITALS: BP 137/76; PULSE 76; TEMP 36.6
[2020-03-09] MEDS: QUEtiapine Fumarate 200 MG TABLET PO (20:47)
[2020-03-09] MEDS: hydrOXYzine HCL 25 MG TABLET PO (20:47)
[2020-03-09] MEDS: Acetaminophen 325 MG TABLET 650 MG PO (20:48)
[2020-03-10 06:05] VITALS: BP 123/68; PULSE 72; RESP 18; TEMP 36.2; O2SAT 97
[2020-03-10 08:42] VITALS: BP 123/68; PULSE 72
[2020-03-10] MEDS: Midodrine HCl 5 MG TABLET PO ×3 (08:42→18:14)
[2020-03-10] MEDS: FLUoxetine HCl 20 MG CAPSULE PO (08:42)
[2020-03-10] MEDS: clonazePAM 1 MG TABLET PO ×2 (08:43→14:16)
[2020-03-10] MEDS: TiZANidine HCL 4 MG TABLET PO ×2 (08:43→14:16)
[2020-03-10] MEDS: Gabapentin 400 MG CAPSULE 800 MG PO ×2 (08:43→14:16)
[2020-03-10] MEDS: Omeprazole 40 MG CAPSULE.DR PO (08:43)
--- NOTE | 2020-03-10 09:09 | HO.PSYCHPN ---
Subjective Subjective Date of Service: 03/10/20 Reason For Visit: Crisis Subjective Notes: Conditional Voluntary Interim History: Mirza was feeling a little better today. He has been up and about on the unit and going to some groups. He has put RAHEEM stockings on and this has helped with his chronic venous stasis. He allowed nursing to change the dressing on his abdomen and it is healing well. He is eating better. He has no WD. He remains quite deconditioned from his surgery. SW is going to talk to case management regarding the possibility of STR. Medication Compliance: Yes Side effects from medications: No Attending Groups: Intermittent Review of Systems Acute medical concerns: No Medical Review of Systems: unchanged Mental Status Exam Mental Status Exam Patient Appearance: Fatigued, Disheveled and Unkempt Patient Orientation: Person, Place, Time and Situation Patient Behavior: Appropriate, Passive and Poor Eye Contact Mood Description: Apathetic Affect Description: Apathetic Ability to Follow Directions: Good Speech Pattern: Monotone and Poor Articulation Memory Description: Intact Delusions: Not Present Thought Process: Rumination and Goal Oriented Thought Content: positive for Goal Oriented, negative for Suicidal Ideation and negative for Homicidal Ideation Depressive Symptoms: Increased Anxiety, Diff. Making Decisions, Increased Fatigue and Loss of Energy Judgement: Fair Diagnostics Vital Signs (24Hr): Vital Signs - 24 hr 03/09/20 09:22 03/09/20 10:00 03/09/20 11:45 Temperature 97.6 F Pulse Rate 81 81 81 Respiratory Rate Blood Pressure 132/72 132/72 132/72 Pulse Oximetry 03/09/20 17:24 03/09/20 17:26 03/10/20 06:05 Temperature 97.8 F 97.2 F Pulse Rate 76 76 72 Respiratory Rate 18 Blood Pressure 137/76 137/76 123/68 Pulse Oximetry 97 03/10/20 08:42 Temperature Pulse Rate 72 Respiratory Rate Blood Pressure 123/68 Pulse Oximetry Body Mass Index 65.4 Labs Results: 03/04/20 20:44 Medications Medications Current Medications Generic Name Dose Route Start Last Admin Trade Name Freq PRN Reason Stop Dose Admin Acetaminophen 650 mg 03/05/20 23:59 03/09/20 20:48 Acetaminophen 325 Mg Tablet PO 650 mg Q6H PRN Administration Headache/Pain Mild Scale (1-3) Al Hydroxide/Mg Hydroxide 30 ml 03/05/20 23:59 Magnesium Hydrox/Alum Hydrox 30 Ml Oral.Susp PO Q6H PRN Heartburn/Nausea Buprenorphine/Naloxone 1 film 03/08/20 09:00 03/09/20 09:17 Buprenorphine/Naloxone 8/2 Mg Film SUBLINGUAL 1 film DAILY ELISEO Administration Clonazepam 1 mg 03/05/20 23:59 03/10/20 08:43 Clonazepam 1 Mg Tablet PO 1 mg TID ELISEO Administration Fluoxetine HCl 20 mg 03/10/20 09:00 03/10/20 08:42 Fluoxetine Hcl 20 Mg Capsule PO 20 mg DAILY ELISEO Administration Gabapentin 800 mg 03/05/20 23:59 03/10/20 08:43 Gabapentin 400 Mg Capsule PO 800 mg TID ELISEO Administration Hydroxyzine HCl 25 mg 03/05/20 23:59 03/09/20 20:47 Hydroxyzine Hcl 25 Mg Tablet PO 25 mg BEDTIME PRN Administration Anxiety Magnesium Hydroxide 30 ml 03/05/20 23:59 Milk Of Magnesia 30 Ml Oral.Susp PO DAILY PRN Constipation Midodrine 5 mg 03/06/20 08:00 03/10/20 08:42 Midodrine Hcl 5 Mg Tablet PO 5 mg TIDWM ELISEO Administration Omeprazole 40 mg 03/06/20 09:00 03/10/20 08:43 Omeprazole 40 Mg Capsule.Dr PO 40 mg DAILY ELISEO Administration Quetiapine Fumarate 50 mg 03/05/20 23:59 03/09/20 09:16 Quetiapine Fumarate 50 Mg Tablet PO 50 mg TID PRN Administration Anxiety Quetiapine Fumarate 200 mg 03/05/20 23:59 03/09/20 20:47 Quetiapine Fumarate 200 Mg Tablet PO 200 mg BEDTIME ELISEO Administration Tizanidine HCl 4 mg 03/05/20 23:59 03/10/20 08:43 Tizanidine Hcl 4 Mg Tablet PO 4 mg Q4H PRN Administration Muscle Spasm Trazodone HCl 50 mg 03/05/20 23:59 Trazodone Hcl 50 Mg Tablet PO BEDTIME PRN Insomnia Allergies Allergies Allergy/AdvReac Type Severity Reaction Status Date / Time acetaminophen [From TYLENOL] Allergy Unknown UNK Verified 03/04/20 16:58 codeine [CODEINE] Allergy Unknown RASH Verified 03/04/20 16:58 pneumococcal vaccine Allergy Unknown PARALYSIS Verified 03/04/20 16:58 [PNEUMOCOCCAL VACCINE] tuberculin, purified protein Allergy Unknown RASH Verified 03/04/20 16:58 deriva [TUBERCULIN, PURIFIED PROTEIN DERIVA] venlafaxine [From EFFEXOR] AdvReac Unknown UNKNOWN Verified 03/04/20 16:58 Assessment & Plan Assessment & Plan (1) Major depression, recurrent: Qualifiers: Active/Remission status: currently active Major depression episode severity: severe Psychotic features: without psychotic features Qualified Code(s): F33.2 - Major depressive disorder, recurrent severe without psychotic features Status: Acute Code(s): F33.9 - Major depressive disorder, recurrent, unspecified (2) Opioid use disorder, moderate, in controlled environment: Status: Acute Code(s): F11.20 - Opioid dependence, uncomplicated Assessment and Plan: CT current psychiatric medications CT suboxone CT RAHEEM stockings Investigate possibility of STR Greater than 50% of the session was spent on counseling and/or coordination of care
[2020-03-10] MEDS: Buprenorphine/Naloxone 8/2 mg FILM 1 FILM SUBLINGUAL (09:19)
[2020-03-10 11:28] VITALS: BP 123/68; PULSE 72
[2020-03-10] MEDS: QUEtiapine Fumarate 50 MG TABLET PO (11:28)
[2020-03-10 18:14] VITALS: BP 117/74; PULSE 71
[2020-03-10 18:15] VITALS: BP 117/74; PULSE 71; TEMP 36.4
--- NOTE | 2020-03-11 09:10 | HO.PSYCHPN ---
Subjective Subjective Date of Service: 03/11/20 Reason For Visit: Crisis Subjective Notes: Conditional Voluntary Interim History: Mirza was feeling a little better today. He has been up and about on the unit and going to some groups. He was quite sedated later in the shift yesterday, and as a result he has had many of his medications decreased. He is not happy about this. He has put RAHEEM stockings on and this has helped with his chronic venous stasis. He allowed nursing to change the dressing on his abdomen and it is healing well. He does continue to be quite tender. Belly is soft. BS+ He is eating better. He has no WD. He remains quite deconditioned from his surgery. PT input appreciated. Agree with STR Medication Compliance: Yes Side effects from medications: No Attending Groups: Intermittent Review of Systems Acute medical concerns: No Medical Review of Systems: changed Review of Systems: Fungal infections on toes. DANIEL [place] who recommends fungal cream bid for 2 weeks. Mental Status Exam Mental Status Exam Patient Appearance: Fatigued, Disheveled and Unkempt Patient Orientation: Person, Place, Time and Situation Patient Behavior: Appropriate, Passive and Poor Eye Contact Mood Description: Apathetic Affect Description: Apathetic Ability to Follow Directions: Good Speech Pattern: Monotone and Poor Articulation Memory Description: Intact Delusions: Not Present Thought Process: Rumination and Goal Oriented Thought Content: positive for Goal Oriented, negative for Suicidal Ideation and negative for Homicidal Ideation Depressive Symptoms: Increased Anxiety, Diff. Making Decisions, Increased Fatigue and Loss of Energy Judgement: Fair Diagnostics Vital Signs (24Hr): Vital Signs - 24 hr 03/10/20 11:28 03/10/20 18:14 03/10/20 18:15 Temperature 97.5 F Pulse Rate 72 71 71 Blood Pressure 123/68 117/74 117/74 Body Mass Index 65.4 Labs Results: 03/04/20 20:44 Medications Medications Current Medications Generic Name Dose Route Start Last Admin Trade Name Freq PRN Reason Stop Dose Admin Acetaminophen 650 mg 03/05/20 23:59 03/09/20 20:48 Acetaminophen 325 Mg Tablet PO 650 mg Q6H PRN Administration Headache/Pain Mild Scale (1-3) Al Hydroxide/Mg Hydroxide 30 ml 03/05/20 23:59 Magnesium Hydrox/Alum Hydrox 30 Ml Oral.Susp PO Q6H PRN Heartburn/Nausea Buprenorphine/Naloxone 1 film 03/08/20 09:00 03/10/20 09:19 Buprenorphine/Naloxone 8/2 Mg Film SUBLINGUAL 1 film DAILY ELISEO Administration Clonazepam 0.5 mg 03/11/20 09:00 Clonazepam 0.5 Mg Tablet PO TID ELISEO Fluoxetine HCl 20 mg 03/10/20 09:00 03/10/20 08:42 Fluoxetine Hcl 20 Mg Capsule PO 20 mg DAILY ELISEO Administration Gabapentin 400 mg 03/11/20 09:00 Gabapentin 400 Mg Capsule PO TID ELISEO Hydroxyzine HCl 25 mg 03/05/20 23:59 03/09/20 20:47 Hydroxyzine Hcl 25 Mg Tablet PO 25 mg BEDTIME PRN Administration Anxiety Magnesium Hydroxide 30 ml 03/05/20 23:59 Milk Of Magnesia 30 Ml Oral.Susp PO DAILY PRN Constipation Midodrine 5 mg 03/06/20 08:00 03/10/20 18:14 Midodrine Hcl 5 Mg Tablet PO 5 mg TIDWM ELISEO Administration Omeprazole 40 mg 03/06/20 09:00 03/10/20 08:43 Omeprazole 40 Mg Capsule.Dr PO 40 mg DAILY ELISEO Administration Quetiapine Fumarate 50 mg 03/05/20 23:59 03/10/20 11:28 Quetiapine Fumarate 50 Mg Tablet PO 50 mg TID PRN Administration Anxiety Quetiapine Fumarate 200 mg 03/05/20 23:59 03/11/20 04:13 Quetiapine Fumarate 200 Mg Tablet PO Not Given BEDTIME ELISEO Tizanidine HCl 4 mg 03/05/20 23:59 03/10/20 14:16 Tizanidine Hcl 4 Mg Tablet PO 4 mg Q4H PRN Administration Muscle Spasm Trazodone HCl 50 mg 03/05/20 23:59 Trazodone Hcl 50 Mg Tablet PO BEDTIME PRN Insomnia Allergies Allergies Allergy/AdvReac Type Severity Reaction Status Date / Time acetaminophen [From TYLENOL] Allergy Unknown UNK Verified 03/04/20 16:58 codeine [CODEINE] Allergy Unknown RASH Verified 03/04/20 16:58 pneumococcal vaccine Allergy Unknown PARALYSIS Verified 03/04/20 16:58 [PNEUMOCOCCAL VACCINE] tuberculin, purified protein Allergy Unknown RASH Verified 03/04/20 16:58 deriva [TUBERCULIN, PURIFIED PROTEIN DERIVA] venlafaxine [From EFFEXOR] AdvReac Unknown UNKNOWN Verified 03/04/20 16:58 Assessment & Plan Assessment & Plan (1) Major depression, recurrent: Qualifiers: Active/Remission status: currently active Major depression episode severity: severe Psychotic features: without psychotic features Qualified Code(s): F33.2 - Major depressive disorder, recurrent severe without psychotic features Status: Acute Code(s): F33.9 - Major depressive disorder, recurrent, unspecified (2) Opioid use disorder, moderate, in controlled environment: Status: Acute Code(s): F11.20 - Opioid dependence, uncomplicated (3) Major depress dis, severe: Status: Acute Code(s): F32.2 - Major depressive disorder, single episode, severe without psychotic features (4) Physical deconditioning: Status: Acute Code(s): R53.81 - Other malaise Assessment and Plan: Refer to STR CT medication but at lower doses and assess for sedation Skills Encourage independance Clotrimazole for great toes. Greater than 50% of the session was spent on counseling and/or coordination of care Patient educated on: diagnosis, medication risk/benefits and substance abuse Informed Consent: further education needed Reason for contiued inpatient stay Substantial Risk for: inability to function and rapid decompensation
[2020-03-11 09:41] VITALS: BP 169/104; PULSE 84
[2020-03-11] MEDS: Omeprazole 40 MG CAPSULE.DR PO (09:45)
[2020-03-11] MEDS: Buprenorphine/Naloxone 8/2 mg FILM 1 FILM SUBLINGUAL (09:45)
[2020-03-11 09:46] VITALS: BP 169/104; PULSE 84
[2020-03-11] MEDS: Gabapentin 400 MG CAPSULE PO ×3 (09:46→21:08)
[2020-03-11] MEDS: clonazePAM 0.5 MG TABLET PO ×2 (09:46→16:05)
[2020-03-11] MEDS: Midodrine HCl 5 MG TABLET PO ×3 (09:46→16:53)
[2020-03-11 10:02] VITALS: BP 169/104; PULSE 84
[2020-03-11] MEDS: FLUoxetine HCl 20 MG CAPSULE PO (10:09)
[2020-03-11 13:49] VITALS: BP 168/80; PULSE 77
[2020-03-11] MEDS: Clotrimazole 1 % Cream 15 GM TUBE TOPICAL (14:20)
[2020-03-11 16:53] VITALS: BP 170/83; PULSE 80
[2020-03-11 17:16] VITALS: BP 170/83; PULSE 80; TEMP 36.9
[2020-03-11] MEDS: QUEtiapine Fumarate 100 MG TABLET PO (21:08)
[2020-03-11] MEDS: TiZANidine HCL 4 MG TABLET PO (21:09)
--- NOTE | 2020-03-11 23:26 | PC.NURSE ---
patient became upset when approached about completing a health care proxy. initially stated ''i don't have to go anywhere i don't want to go'' offered explanation of what a health care proxy was and then became upset stating ''i don't have anyone i can trust'' ''i won't sign anything''
--- NOTE | 2020-03-12 | CT_ITS ---
EXAMINATION: CT HEAD WITHOUT CONTRAST CLINICAL INFORMATION: Worsening confusion. COMPARISON: 01/30/2019 TECHNIQUE: Contiguous axial imaging was performed from the skull base to vertex without intravenous administration of contrast. This CT examination was performed using dose optimization techniques as appropriate, variously including the following: *Automated exposure control *Adjustment of mA and/or kV according to patient size (this includes techniques or standardized protocols for targeted exams where dose is matched to indication/reason for exam; i.e. extremities or head) *Use of iterative reconstruction technique DLP: 669 mGy-cm FINDINGS: There is no evidence of acute intracranial hemorrhage or territorial infarction. No abnormal mass effect or midline shift is seen. There is a large amount of periventricular white matter low density again seen consistent with microangiopathy. Bilateral regions of frontal encephalomalacia are present which may be posttraumatic or post infarct. No significant changes appreciated. There is questioned region of diminished density within the right cerebellum, however, this appears to be related to beam hardening artifact off of bone. The ventricles are mildly prominent. There is some motion artifact present, however, the visualized mastoid air cells appear unremarkable. Patient status post plating of the left inferior anterior orbital wall/anterior maxillary sinus. Metallic sutures/screw seen about the right lateral orbital wall and anterior maxilla. There is mucosal thickening seen within the right maxillary sinus. IMPRESSION: No significant acute intracranial process. Marked changes of microangiopathy. Bilateral frontal encephalomalacia which may be post infarct or posttraumatic.
[2020-03-12 06:05] VITALS: BP 143/82; PULSE 71; RESP 18; TEMP 35.9; O2SAT 99
[2020-03-12 08:38] VITALS: BP 143/82; PULSE 71
[2020-03-12] MEDS: FLUoxetine HCl 20 MG CAPSULE PO (08:38)
[2020-03-12] MEDS: Midodrine HCl 5 MG TABLET PO ×3 (08:38→17:26)
[2020-03-12] MEDS: Omeprazole 40 MG CAPSULE.DR PO (08:38)
[2020-03-12] MEDS: Gabapentin 400 MG CAPSULE PO ×3 (08:38→20:37)
[2020-03-12] MEDS: Buprenorphine/Naloxone 8/2 mg FILM 1 FILM SUBLINGUAL (08:39)
[2020-03-12] MEDS: Clotrimazole 1 % Cream 15 GM TUBE TOPICAL (08:43)
--- NOTE | 2020-03-12 09:14 | HO.PSYCHPN ---
Subjective Subjective Date of Service: 03/12/20 Reason For Visit: Crisis Subjective Notes: Conditional Voluntary Interim History: Mirza was feeling a little better today. He has been up and about on the unit and going to some groups. He was much better in his coloring and his level of alertness. We was however somewhat confused, in that he thought he was leaving today. He then said that he did want to go to STR. VSS Afebrile Will check labs. Belly is soft. BS+ He is eating better. He has no WD. He remains quite deconditioned from his surgery. PT input appreciated. Agree with STR Medication Compliance: Intermittent Side effects from medications: No Attending Groups: Intermittent Review of Systems Acute medical concerns: No Medical Review of Systems: changed Review of Systems: Fungal infections on toes. DANIEL [place] who recommends fungal cream bid for 2 weeks. He has been refusing this Mental Status Exam Mental Status Exam Patient Appearance: Disheveled and Unkempt Patient Orientation: Person, Place, Time and Situation Level of Consciousness: Awake Patient Behavior: Passive, Distractible, Confused and Poor Eye Contact Mood Description: Apathetic Affect Description: Apathetic Ability to Follow Directions: Good Speech Pattern: Monotone and Poor Articulation Memory Description: Immediate Impaired Hallucinations: None Delusions: Not Present Thought Process: Rumination and Goal Oriented Thought Content: positive for Goal Oriented, negative for Suicidal Ideation and negative for Homicidal Ideation Depressive Symptoms: Increased Anxiety, Diff. Making Decisions, Increased Fatigue, Low Self Esteem and Loss of Energy Judgement: Fair Diagnostics Vital Signs (24Hr): Vital Signs - 24 hr 03/11/20 09:41 03/11/20 09:46 03/11/20 10:02 Temperature Pulse Rate 84 84 84 Respiratory Rate Blood Pressure 169/104 H 169/104 H 169/104 H Pulse Oximetry 03/11/20 13:49 03/11/20 16:53 03/11/20 17:16 Temperature 98.4 F Pulse Rate 77 80 80 Respiratory Rate Blood Pressure 168/80 H 170/83 H 170/83 H Pulse Oximetry 03/12/20 06:05 03/12/20 08:38 Temperature 96.7 F L Pulse Rate 71 71 Respiratory Rate 18 Blood Pressure 143/82 H 143/82 H Pulse Oximetry 99 Body Mass Index 65.4 Labs Results: 03/04/20 20:44 Medications Medications Current Medications Generic Name Dose Route Start Last Admin Trade Name Freq PRN Reason Stop Dose Admin Acetaminophen 650 mg 03/05/20 23:59 03/09/20 20:48 Acetaminophen 325 Mg Tablet PO 650 mg Q6H PRN Administration Headache/Pain Mild Scale (1-3) Al Hydroxide/Mg Hydroxide 30 ml 03/05/20 23:59 Magnesium Hydrox/Alum Hydrox 30 Ml Oral.Susp PO Q6H PRN Heartburn/Nausea Buprenorphine/Naloxone 1 film 03/08/20 09:00 03/12/20 08:39 Buprenorphine/Naloxone 8/2 Mg Film SUBLINGUAL 1 film DAILY ELISEO Administration Clonazepam 0.5 mg 03/11/20 09:15 03/11/20 16:05 Clonazepam 0.5 Mg Tablet PO 0.5 mg TID PRN Administration anxiety/restlessness Clotrimazole 1 gm 03/11/20 13:28 03/12/20 08:43 Clotrimazole 1 % Cream 15 Gm Tube TOPICAL 1 gm BID ELISEO Administration Fluoxetine HCl 20 mg 03/10/20 09:00 03/12/20 08:38 Fluoxetine Hcl 20 Mg Capsule PO 20 mg DAILY ELISEO Administration Gabapentin 400 mg 03/11/20 09:00 03/12/20 08:38 Gabapentin 400 Mg Capsule PO 400 mg TID ELISEO Administration Hydroxyzine HCl 25 mg 03/05/20 23:59 03/09/20 20:47 Hydroxyzine Hcl 25 Mg Tablet PO 25 mg BEDTIME PRN Administration Anxiety Magnesium Hydroxide 30 ml 03/05/20 23:59 Milk Of Magnesia 30 Ml Oral.Susp PO DAILY PRN Constipation Midodrine 5 mg 03/06/20 08:00 03/12/20 08:38 Midodrine Hcl 5 Mg Tablet PO 5 mg TIDWM ELISEO Administration Omeprazole 40 mg 03/06/20 09:00 03/12/20 08:38 Omeprazole 40 Mg Capsule.Dr PO 40 mg DAILY ELISEO Administration Quetiapine Fumarate 50 mg 03/05/20 23:59 03/10/20 11:28 Quetiapine Fumarate 50 Mg Tablet PO 50 mg TID PRN Administration Anxiety Quetiapine Fumarate 100 mg 03/11/20 21:00 03/11/20 21:08 Quetiapine Fumarate 100 Mg Tablet PO 100 mg BEDTIME ELISEO Administration Tizanidine HCl 4 mg 03/05/20 23:59 03/11/20 21:09 Tizanidine Hcl 4 Mg Tablet PO 4 mg Q4H PRN Administration Muscle Spasm Trazodone HCl 50 mg 03/05/20 23:59 Trazodone Hcl 50 Mg Tablet PO BEDTIME PRN Insomnia Allergies Allergies Allergy/AdvReac Type Severity Reaction Status Date / Time acetaminophen [From TYLENOL] Allergy Unknown UNK Verified 03/04/20 16:58 codeine [CODEINE] Allergy Unknown RASH Verified 03/04/20 16:58 pneumococcal vaccine Allergy Unknown PARALYSIS Verified 03/04/20 16:58 [PNEUMOCOCCAL VACCINE] tuberculin, purified protein Allergy Unknown RASH Verified 03/04/20 16:58 deriva [TUBERCULIN, PURIFIED PROTEIN DERIVA] venlafaxine [From EFFEXOR] AdvReac Unknown UNKNOWN Verified 03/04/20 16:58 Assessment & Plan Assessment & Plan (1) Physical deconditioning: Status: Acute Code(s): R53.81 - Other malaise (2) Major depression, recurrent: Qualifiers: Active/Remission status: currently active Major depression episode severity: severe Psychotic features: without psychotic features Qualified Code(s): F33.2 - Major depressive disorder, recurrent severe without psychotic features Status: Acute Code(s): F33.9 - Major depressive disorder, recurrent, unspecified (3) Opioid use disorder, moderate, in controlled environment: Status: Acute Code(s): F11.20 - Opioid dependence, uncomplicated (4) Confusion: Status: Acute Code(s): R41.0 - Disorientation, unspecified Assessment and Plan: Check labs Re-orient Lower meds and hold for sedation CT suboxone Refer to STR when stable Greater than 50% of the session was spent on counseling and/or coordination of care Patient educated on: diagnosis, medication risk/benefits and substance abuse Informed Consent: does not understand Reason for contiued inpatient stay Substantial Risk for: inability to function, rapid decompensation and med/psych decompensation
[2020-03-12] MEDS: clonazePAM 0.5 MG TABLET PO ×2 (11:32→20:40)
[2020-03-12 11:44] VITALS: BMI 26.8
[2020-03-12] MEDS: TiZANidine HCL 4 MG TABLET PO (14:15)
[2020-03-12 17:21] VITALS: BP 132/81; PULSE 70; TEMP 36.8
[2020-03-12 17:26] VITALS: BP 132/81; PULSE 70
[2020-03-12] MEDS: QUEtiapine Fumarate 100 MG TABLET PO (20:37)
[2020-03-12 20:55] VITALS: BP 139/86; PULSE 63; TEMP 36.9
[2020-03-13 06:15] VITALS: BP 161/73; PULSE 82; RESP 18; TEMP 36.7
[2020-03-13 09:03] VITALS: BP 101/73; PULSE 82
[2020-03-13] MEDS: Buprenorphine/Naloxone 8/2 mg FILM 1 FILM SUBLINGUAL (09:03)
[2020-03-13] MEDS: Omeprazole 40 MG CAPSULE.DR PO (09:03)
[2020-03-13] MEDS: Gabapentin 400 MG CAPSULE PO ×3 (09:03→20:04)
[2020-03-13] MEDS: Midodrine HCl 5 MG TABLET PO ×3 (09:03→18:28)
[2020-03-13] MEDS: Clotrimazole 1 % Cream 15 GM TUBE TOPICAL (09:04)
[2020-03-13] MEDS: clonazePAM 0.5 MG TABLET PO ×2 (09:49→20:05)
[2020-03-13] MEDS: TiZANidine HCL 4 MG TABLET PO ×2 (11:14→16:09)
[2020-03-13] MEDS: FLUoxetine HCl 20 MG CAPSULE PO (11:14)
[2020-03-13 12:10] VITALS: BP 101/73; PULSE 82
[2020-03-13 16:43] VITALS: BP 122/71; PULSE 72; TEMP 36.8
[2020-03-13] MEDS: QUEtiapine Fumarate 100 MG TABLET PO (20:04)
--- NOTE | 2020-03-13 23:04 | HO.PSYCHPN ---
Subjective Subjective Reason For Visit: Crisis Interim History: Pt continues to be lethargic venous stasis depressed withdrawn Recommend st rehab Review of Systems Constitutional: Reports daytime sleepiness, Reports fatigue, Reports lethargy, Reports malaise and Reports weakness Cardiovascular: Reports pedal edema and Reports leg edema Musculoskeletal: Reports muscle weakness and Reports stiffness Reports weakness Psychiatric: Reports depression and Reports anhedonia Endocrine: Reports fatigue Mental Status Exam Mental Status Exam Patient Appearance: Disheveled and Unkempt Patient Orientation: Person, Place, Time and Situation Level of Consciousness: Awake Patient Behavior: Passive, Distractible, Confused and Poor Eye Contact Mood Description: Apathetic Affect Description: Apathetic Ability to Follow Directions: Good Speech Pattern: Monotone and Poor Articulation Memory Description: Immediate Impaired Diagnostics Vital Signs (24Hr): Vital Signs - 24 hr 03/13/20 06:15 03/13/20 09:03 03/13/20 12:10 Temperature 98.1 F Pulse Rate 82 82 82 Respiratory Rate 18 Blood Pressure 161/73 H 101/73 101/73 03/13/20 16:43 Temperature 98.2 F Pulse Rate 72 Respiratory Rate Blood Pressure 122/71 Body Mass Index 26.8 Labs Results: 03/04/20 20:44 Medications Medications Current Medications Generic Name Dose Route Start Last Admin Trade Name Freq PRN Reason Stop Dose Admin Acetaminophen 650 mg 03/05/20 23:59 03/09/20 20:48 Acetaminophen 325 Mg Tablet PO 650 mg Q6H PRN Administration Headache/Pain Mild Scale (1-3) Al Hydroxide/Mg Hydroxide 30 ml 03/05/20 23:59 Magnesium Hydrox/Alum Hydrox 30 Ml Oral.Susp PO Q6H PRN Heartburn/Nausea Buprenorphine/Naloxone 1 film 03/08/20 09:00 03/13/20 09:03 Buprenorphine/Naloxone 8/2 Mg Film SUBLINGUAL 1 film DAILY ELISEO Administration Clonazepam 0.5 mg 03/11/20 09:15 03/13/20 20:05 Clonazepam 0.5 Mg Tablet PO 0.5 mg TID PRN Administration anxiety/restlessness Clotrimazole 1 gm 03/11/20 13:28 03/13/20 22:16 Clotrimazole 1 % Cream 15 Gm Tube TOPICAL Not Given BID ELISEO Fluoxetine HCl 20 mg 03/10/20 09:00 03/13/20 11:14 Fluoxetine Hcl 20 Mg Capsule PO 20 mg DAILY ELISEO Administration Gabapentin 400 mg 03/11/20 09:00 03/13/20 20:04 Gabapentin 400 Mg Capsule PO 400 mg TID ELISEO Administration Hydroxyzine HCl 25 mg 03/05/20 23:59 03/09/20 20:47 Hydroxyzine Hcl 25 Mg Tablet PO 25 mg BEDTIME PRN Administration Anxiety Magnesium Hydroxide 30 ml 03/05/20 23:59 Milk Of Magnesia 30 Ml Oral.Susp PO DAILY PRN Constipation Midodrine 5 mg 03/06/20 08:00 03/13/20 18:28 Midodrine Hcl 5 Mg Tablet PO 5 mg TIDWM ELISEO Administration Omeprazole 40 mg 03/06/20 09:00 03/13/20 09:03 Omeprazole 40 Mg Capsule.Dr PO 40 mg DAILY ELISEO Administration Quetiapine Fumarate 50 mg 03/05/20 23:59 03/10/20 11:28 Quetiapine Fumarate 50 Mg Tablet PO 50 mg TID PRN Administration Anxiety Quetiapine Fumarate 100 mg 03/11/20 21:00 03/13/20 20:04 Quetiapine Fumarate 100 Mg Tablet PO 100 mg BEDTIME ELISEO Administration Tizanidine HCl 4 mg 03/05/20 23:59 03/13/20 16:09 Tizanidine Hcl 4 Mg Tablet PO 4 mg Q4H PRN Administration Muscle Spasm Trazodone HCl 50 mg 03/05/20 23:59 Trazodone Hcl 50 Mg Tablet PO BEDTIME PRN Insomnia Allergies Allergies Allergy/AdvReac Type Severity Reaction Status Date / Time acetaminophen [From TYLENOL] Allergy Unknown UNK Verified 03/04/20 16:58 codeine [CODEINE] Allergy Unknown RASH Verified 03/04/20 16:58 pneumococcal vaccine Allergy Unknown PARALYSIS Verified 03/04/20 16:58 [PNEUMOCOCCAL VACCINE] tuberculin, purified protein Allergy Unknown RASH Verified 03/04/20 16:58 deriva [TUBERCULIN, PURIFIED PROTEIN DERIVA] venlafaxine [From EFFEXOR] AdvReac Unknown UNKNOWN Verified 03/04/20 16:58 Assessment & Plan Assessment & Plan (1) Physical deconditioning: Status: Acute Code(s): R53.81 - Other malaise (2) Major depression, recurrent: Qualifiers: Active/Remission status: currently active Major depression episode severity: severe Psychotic features: without psychotic features Qualified Code(s): F33.2 - Major depressive disorder, recurrent severe without psychotic features Status: Acute Code(s): F33.9 - Major depressive disorder, recurrent, unspecified (3) Opioid use disorder, moderate, in controlled environment: Status: Acute Code(s): F11.20 - Opioid dependence, uncomplicated (4) Confusion: Status: Acute Code(s): R41.0 - Disorientation, unspecified Assessment and Plan: Check labs Re-orient Lower meds and hold for sedation CT suboxone Refer to STR when stable above continues to be true Greater than 50% of the session was spent on counseling and/or coordination of care
[2020-03-14 03:55] VITALS: BP 138/75; PULSE 68; RESP 16; TEMP 36.2
[2020-03-14] MEDS: QUEtiapine Fumarate 50 MG TABLET PO (03:55)
[2020-03-14] MEDS: TiZANidine HCL 4 MG TABLET PO ×4 (03:55→21:23)
[2020-03-14] MEDS: Gabapentin 400 MG CAPSULE PO ×3 (08:18→21:16)
[2020-03-14] MEDS: FLUoxetine HCl 20 MG CAPSULE PO (08:18)
[2020-03-14] MEDS: Buprenorphine/Naloxone 8/2 mg FILM 1 FILM SUBLINGUAL (08:18)
[2020-03-14 08:19] VITALS: BP 138/75; PULSE 68
[2020-03-14] MEDS: Omeprazole 40 MG CAPSULE.DR PO (08:19)
[2020-03-14] MEDS: Midodrine HCl 5 MG TABLET PO ×3 (08:19→17:19)
[2020-03-14] MEDS: clonazePAM 0.5 MG TABLET PO ×3 (08:23→21:23)
--- NOTE | 2020-03-14 11:08 | P.PNPSI_ITS ---
Subjective Subjective Reason For Visit: Crisis Interim History: Pt continues to be lethargic venous stasis depressed withdrawn Recommend st rehab poor hygeine depressed lethargic withdrawn Review of Systems Constitutional: Reports weakness Reports weakness Mental Status Exam Mental Status Exam Patient Appearance: Disheveled and Unkempt Patient Orientation: Person, Place, Time and Situation Level of Consciousness: Awake Patient Behavior: Passive, Distractible and Poor Eye Contact Mood Description: Apathetic Affect Description: Apathetic and Blunted Ability to Follow Directions: Good Speech Pattern: Monotone and Poor Articulation Memory Description: Immediate Impaired and Semantic Impaired Hallucinations: None Thought Content: positive for Slowed Thinking Depressive Symptoms: Difficulty Concentrating Abnormal Motor Activity Signs and Symptoms: Psychomotor Retardation Judgement: Fair Diagnostics Vital Signs (24Hr): Vital Signs - 24 hr 03/13/20 12:10 03/13/20 16:43 03/14/20 03:55 Temperature 98.2 F 97.1 F Pulse Rate 82 72 68 Respiratory Rate 16 Blood Pressure 101/73 122/71 138/75 03/14/20 08:19 Temperature Pulse Rate 68 Respiratory Rate Blood Pressure 138/75 Body Mass Index 26.8 Labs Results: 03/04/20 20:44 Medications Medications Current Medications Generic Name Dose Route Start Last Admin Trade Name Freq PRN Reason Stop Dose Admin Acetaminophen 650 mg 03/05/20 23:59 03/09/20 20:48 Acetaminophen 325 Mg Tablet PO 650 mg Q6H PRN Administration Headache/Pain Mild Scale (1-3) Al Hydroxide/Mg Hydroxide 30 ml 03/05/20 23:59 Magnesium Hydrox/Alum Hydrox 30 Ml Oral.Susp PO Q6H PRN Heartburn/Nausea Buprenorphine/Naloxone 1 film 03/08/20 09:00 03/14/20 08:18 Buprenorphine/Naloxone 8/2 Mg Film SUBLINGUAL 1 film DAILY ELISEO Administration Clonazepam 0.5 mg 03/11/20 09:15 03/14/20 08:23 Clonazepam 0.5 Mg Tablet PO 0.5 mg TID PRN Administration anxiety/restlessness Clotrimazole 1 gm 03/11/20 13:28 03/13/20 22:16 Clotrimazole 1 % Cream 15 Gm Tube TOPICAL Not Given BID ELISEO Fluoxetine HCl 20 mg 03/10/20 09:00 03/14/20 08:18 Fluoxetine Hcl 20 Mg Capsule PO 20 mg DAILY ELISEO Administration Gabapentin 400 mg 03/11/20 09:00 03/14/20 08:18 Gabapentin 400 Mg Capsule PO 400 mg TID ELISEO Administration Hydroxyzine HCl 25 mg 03/05/20 23:59 03/09/20 20:47 Hydroxyzine Hcl 25 Mg Tablet PO 25 mg BEDTIME PRN Administration Anxiety Magnesium Hydroxide 30 ml 03/05/20 23:59 Milk Of Magnesia 30 Ml Oral.Susp PO DAILY PRN Constipation Midodrine 5 mg 03/06/20 08:00 03/14/20 08:19 Midodrine Hcl 5 Mg Tablet PO 5 mg TIDWM ELISEO Administration Omeprazole 40 mg 03/06/20 09:00 03/14/20 08:19 Omeprazole 40 Mg Capsule.Dr PO 40 mg DAILY ELISEO Administration Quetiapine Fumarate 50 mg 03/05/20 23:59 03/14/20 03:55 Quetiapine Fumarate 50 Mg Tablet PO 50 mg TID PRN Administration Anxiety Quetiapine Fumarate 100 mg 03/11/20 21:00 03/13/20 20:04 Quetiapine Fumarate 100 Mg Tablet PO 100 mg BEDTIME ELISEO Administration Tizanidine HCl 4 mg 03/05/20 23:59 03/14/20 08:22 Tizanidine Hcl 4 Mg Tablet PO 4 mg Q4H PRN Administration Muscle Spasm Trazodone HCl 50 mg 03/05/20 23:59 Trazodone Hcl 50 Mg Tablet PO BEDTIME PRN Insomnia Allergies Allergies Allergy/AdvReac Type Severity Reaction Status Date / Time acetaminophen [From TYLENOL] Allergy Unknown UNK Verified 03/04/20 16:58 codeine [CODEINE] Allergy Unknown RASH Verified 03/04/20 16:58 pneumococcal vaccine Allergy Unknown PARALYSIS Verified 03/04/20 16:58 [PNEUMOCOCCAL VACCINE] tuberculin, purified protein Allergy Unknown RASH Verified 03/04/20 16:58 deriva [TUBERCULIN, PURIFIED PROTEIN DERIVA] venlafaxine [From EFFEXOR] AdvReac Unknown UNKNOWN Verified 03/04/20 16:58 Assessment & Plan Assessment & Plan (1) Physical deconditioning: Status: Acute Code(s): R53.81 - Other malaise (2) Major depression, recurrent: Qualifiers: Active/Remission status: currently active Major depression episode severity: severe Psychotic features: without psychotic features Qualified Code(s): F33.2 - Major depressive disorder, recurrent severe without psychotic features Status: Acute Code(s): F33.9 - Major depressive disorder, recurrent, unspecified (3) Opioid use disorder, moderate, in controlled environment: Status: Acute Code(s): F11.20 - Opioid dependence, uncomplicated (4) Confusion: Status: Acute Code(s): R41.0 - Disorientation, unspecified (5) Cerebral microvascular disease: Status: Acute Code(s): I67.89 - Other cerebrovascular disease (6) Major depress dis, severe: Status: Acute Code(s): F32.2 - Major depressive disorder, single episode, severe without psychotic fea tures (7) 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
[2020-03-14 13:28] VITALS: BP 117/70; PULSE 76
[2020-03-14] MEDS: Clotrimazole 1 % Cream 15 GM TUBE TOPICAL ×2 (13:32→21:16)
[2020-03-14 16:23] VITALS: BP 110/59; PULSE 64; TEMP 36.4
[2020-03-14 17:19] VITALS: BP 110/59; PULSE 64
[2020-03-14] MEDS: QUEtiapine Fumarate 100 MG TABLET PO (21:16)
[2020-03-15 04:10] VITALS: BP 132/72; PULSE 73; RESP 14; TEMP 36.4; O2SAT 100
--- NOTE | 2020-03-15 05:25 | PC.NURSE ---
At approximately 0335, while performing safety checks, t/w observed pt lying on the floor next to his bed. Pt reported sliding out of bed while sleeping and had been incontinent of urine. He denied physical pain and denied injury to head. T/w assisted pt to shower. Gait was unsteady. Bilateral edema and discoloration (above ankles) of lower extremities noted. Ecchymosis on lower left aspect of his back noted. Pt hostile and minimally cooperative during shower and while escorting back to room. VSS. Pt alert and oriented to place, name, , and reason for hospitalization. Off by more than two days on date and unsure of time. At times pt appeared confused and speech somewhat garbled. Pt ambulated to bathroom with assistance and voided. Pt assisted to bed and safety upgraded to one to one for increased falls risk. Will continue to monitor and report.
--- NOTE | 2020-03-15 09:22 | HO.PSYCHPN ---
Subjective Subjective Date of Service: 03/15/20 Reason For Visit: Crisis Subjective Notes: Conditional Voluntary Interim History: Mirza has been quite irritable regarding his medications being lowered, due to his being oversedated. The medications have been pared quite extensively. After waking this morning he was more alert and engaged. He becomes threatening when he asks for his medications to be the way are supposed to be . He does not comprehend that he is confused at times. MOCA is pending. Medication Compliance: Yes Side effects from medications: Yes (sedation) Attending Groups: No Review of Systems Acute medical concerns: No Medical Review of Systems: unchanged Review of Systems Constitutional: Reports weakness Reports weakness Mental Status Exam Mental Status Exam Patient Appearance: Disheveled and Unkempt Patient Orientation: Person, Place, Time and Situation Level of Consciousness: Awake Patient Behavior: Passive, Distractible and Confused Mood Description: Apathetic Affect Description: Apathetic, Blunted and Angry Ability to Follow Directions: Good Speech Pattern: Monotone and Poor Articulation Memory Description: Immediate Impaired Hallucinations: None Delusions: Not Present Thought Process: Disoriented and Slowed Thinking Thought Content: positive for Slowed Thinking, negative for Suicidal Ideation and negative for Homicidal Ideation Depressive Symptoms: Difficulty Concentrating Abnormal Motor Activity Signs and Symptoms: Psychomotor Retardation Judgement: Fair Diagnostics Vital Signs (24Hr): Vital Signs - 24 hr 03/14/20 13:28 03/14/20 16:23 03/14/20 17:19 Temperature 97.6 F Pulse Rate 76 64 64 Respiratory Rate Blood Pressure 117/70 110/59 L 110/59 L Pulse Oximetry 03/15/20 04:10 Temperature 97.6 F Pulse Rate 73 Respiratory Rate 14 Blood Pressure 132/72 Pulse Oximetry 100 Body Mass Index 26.8 Labs Results: 03/04/20 20:44 Medications Medications Current Medications Generic Name Dose Route Start Last Admin Trade Name Freq PRN Reason Stop Dose Admin Acetaminophen 650 mg 03/05/20 23:59 03/09/20 20:48 Acetaminophen 325 Mg Tablet PO 650 mg Q6H PRN Administration Headache/Pain Mild Scale (1-3) Al Hydroxide/Mg Hydroxide 30 ml 03/05/20 23:59 Magnesium Hydrox/Alum Hydrox 30 Ml Oral.Susp PO Q6H PRN Heartburn/Nausea Clotrimazole 1 gm 03/11/20 13:28 03/14/20 21:16 Clotrimazole 1 % Cream 15 Gm Tube TOPICAL 1 gm BID ELISEO Administration Fluoxetine HCl 20 mg 03/10/20 09:00 03/14/20 08:18 Fluoxetine Hcl 20 Mg Capsule PO 20 mg DAILY ELISEO Administration Gabapentin 400 mg 03/11/20 09:00 03/14/20 21:16 Gabapentin 400 Mg Capsule PO 400 mg TID ELISEO Administration Hydroxyzine HCl 25 mg 03/05/20 23:59 03/09/20 20:47 Hydroxyzine Hcl 25 Mg Tablet PO 25 mg BEDTIME PRN Administration Anxiety Magnesium Hydroxide 30 ml 03/05/20 23:59 Milk Of Magnesia 30 Ml Oral.Susp PO DAILY PRN Constipation Midodrine 5 mg 03/06/20 08:00 03/14/20 17:19 Midodrine Hcl 5 Mg Tablet PO 5 mg TIDWM ELISEO Administration Omeprazole 40 mg 03/06/20 09:00 03/14/20 08:19 Omeprazole 40 Mg Capsule.Dr PO 40 mg DAILY ELISEO Administration Quetiapine Fumarate 50 mg 03/05/20 23:59 03/14/20 03:55 Quetiapine Fumarate 50 Mg Tablet PO 50 mg TID PRN Administration Anxiety Quetiapine Fumarate 100 mg 03/11/20 21:00 03/14/20 21:16 Quetiapine Fumarate 100 Mg Tablet PO 100 mg BEDTIME ELISEO Administration Tizanidine HCl 4 mg 03/05/20 23:59 03/14/20 21:23 Tizanidine Hcl 4 Mg Tablet PO 4 mg Q4H PRN Administration Muscle Spasm Trazodone HCl 50 mg 03/05/20 23:59 Trazodone Hcl 50 Mg Tablet PO BEDTIME PRN Insomnia Allergies Allergies Allergy/AdvReac Type Severity Reaction Status Date / Time acetaminophen [From TYLENOL] Allergy Unknown UNK Verified 03/04/20 16:58 codeine [CODEINE] Allergy Unknown RASH Verified 03/04/20 16:58 pneumococcal vaccine Allergy Unknown PARALYSIS Verified 03/04/20 16:58 [PNEUMOCOCCAL VACCINE] tuberculin, purified protein Allergy Unknown RASH Verified 03/04/20 16:58 deriva [TUBERCULIN, PURIFIED PROTEIN DERIVA] venlafaxine [From EFFEXOR] AdvReac Unknown UNKNOWN Verified 03/04/20 16:58 Assessment & Plan Assessment & Plan (1) Major depress dis, severe: Status: Acute Code(s): F32.2 - Major depressive disorder, single episode, severe without psychotic features (2) Cerebral microvascular disease: Status: Acute Code(s): I67.89 - Other cerebrovascular disease (3) 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: Status: Acute Code(s): I69.814 - 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 (4) Confusion: Status: Acute Code(s): R41.0 - Disorientation, unspecified (5) Physical deconditioning: Status: Acute Code(s): R53.81 - Other malaise (6) Opioid use disorder, moderate, in controlled environment: Status: Acute Code(s): F11.20 - Opioid dependence, uncomplicated Assessment and Plan: CT to rationalize medication regime MOCA when able to participate STR when stable CT lower dose of suboxone Greater than 50% of the session was spent on counseling and/or coordination of care Patient educated on: diagnosis, medication risk/benefits and substance abuse Informed Consent: further education needed Reason for contiued inpatient stay Substantial Risk for: inability to function and rapid decompensation
[2020-03-15 11:33] VITALS: BP 132/72; PULSE 73
[2020-03-15] MEDS: Midodrine HCl 5 MG TABLET PO ×2 (11:33→17:12)
[2020-03-15] MEDS: Gabapentin 400 MG CAPSULE PO ×3 (11:34→21:03)
[2020-03-15] MEDS: FLUoxetine HCl 20 MG CAPSULE PO (11:34)
[2020-03-15] MEDS: Omeprazole 40 MG CAPSULE.DR PO (11:35)
[2020-03-15] MEDS: Clotrimazole 1 % Cream 15 GM TUBE TOPICAL (11:47)
[2020-03-15] MEDS: Buprenorphine/Naloxone 4/1 mg FILM 1 FILM SUBLINGUAL (11:51)
[2020-03-15] MEDS: TiZANidine HCL 4 MG TABLET PO ×2 (17:19→21:04)
[2020-03-15 18:52] VITALS: BP 178/97; PULSE 87; TEMP 37.1
[2020-03-15 19:18] VITALS: PULSE 81; TEMP 36.6
[2020-03-15] MEDS: QUEtiapine Fumarate 100 MG TABLET PO (21:02)
[2020-03-15] MEDS: Clotrimazole 1 % Cream 15 GM TUBE 1 APPL TOPICAL (21:16)
[2020-03-16 06:15] VITALS: BP 159/88; PULSE 66; RESP 18; TEMP 36.3
[2020-03-16] MEDS: TiZANidine HCL 4 MG TABLET PO ×4 (08:52→22:06)
[2020-03-16] MEDS: Omeprazole 40 MG CAPSULE.DR PO (08:52)
[2020-03-16 08:53] VITALS: BP 159/88; PULSE 66
[2020-03-16] MEDS: Gabapentin 400 MG CAPSULE PO ×3 (08:53→22:06)
[2020-03-16] MEDS: Midodrine HCl 5 MG TABLET PO ×3 (08:53→17:44)
[2020-03-16] MEDS: FLUoxetine HCl 20 MG CAPSULE PO (08:55)
[2020-03-16] MEDS: Clotrimazole 1 % Cream 15 GM TUBE 1 APPL TOPICAL ×2 (08:55→22:07)
--- NOTE | 2020-03-16 09:12 | HO.PSYCHPN ---
Subjective Subjective Date of Service: 03/16/20 Reason For Visit: Crisis Subjective Notes: Conditional Voluntary Interim History: Mirza has been much calmer today and he has been more accepting of his medications which have been pared down quite extensively. After waking this morning he was more alert and engaged. He was much clearer in his thinking We discussed HCP. He is aware of what a HCP is and has the capacity to appoint one. MOCA is pending. Medication Compliance: Yes Side effects from medications: No Attending Groups: No Review of Systems Acute medical concerns: No Medical Review of Systems: unchanged Review of Systems Constitutional: Reports weakness Reports weakness Mental Status Exam Mental Status Exam Patient Appearance: Disheveled and Unkempt Patient Orientation: Person, Place, Time and Situation Level of Consciousness: Awake Patient Behavior: Passive, Distractible and Confused Mood Description: Calm Affect Description: Calm and Blunted Ability to Follow Directions: Good Speech Pattern: Monotone and Poor Articulation Memory Description: Immediate Impaired Hallucinations: None Delusions: Not Present Thought Process: Disoriented and Slowed Thinking Thought Content: positive for Slowed Thinking, negative for Suicidal Ideation and negative for Homicidal Ideation Depressive Symptoms: Difficulty Concentrating Abnormal Motor Activity Signs and Symptoms: Psychomotor Retardation Judgement: Fair Diagnostics Vital Signs (24Hr): Vital Signs - 24 hr 03/15/20 11:33 03/15/20 18:52 03/15/20 19:18 Temperature 98.8 F 97.8 F Pulse Rate 73 87 81 Respiratory Rate Blood Pressure 132/72 178/97 H 03/16/20 06:15 03/16/20 08:53 Temperature 97.4 F Pulse Rate 66 66 Respiratory Rate 18 Blood Pressure 159/88 H 159/88 H Body Mass Index 26.8 Labs Results: 03/04/20 20:44 Medications Medications Current Medications Generic Name Dose Route Start Last Admin Trade Name Freq PRN Reason Stop Dose Admin Acetaminophen 650 mg 03/05/20 23:59 03/09/20 20:48 Acetaminophen 325 Mg Tablet PO 650 mg Q6H PRN Administration Headache/Pain Mild Scale (1-3) Al Hydroxide/Mg Hydroxide 30 ml 03/05/20 23:59 Magnesium Hydrox/Alum Hydrox 30 Ml Oral.Susp PO Q6H PRN Heartburn/Nausea Buprenorphine/Naloxone 1 film 03/15/20 11:45 03/15/20 11:51 Buprenorphine/Naloxone 4/1 Mg Film SUBLINGUAL 1 film DAILY ELISEO Administration Clotrimazole 1 appl 03/15/20 21:00 03/16/20 08:55 Clotrimazole 1 % Cream 15 Gm Tube TOPICAL 1 appl BID ELISEO Administration Protocol Fluoxetine HCl 20 mg 03/10/20 09:00 03/16/20 08:55 Fluoxetine Hcl 20 Mg Capsule PO 20 mg DAILY ELISEO Administration Gabapentin 400 mg 03/11/20 09:00 03/16/20 08:53 Gabapentin 400 Mg Capsule PO 400 mg TID ELISEO Administration Hydroxyzine HCl 25 mg 03/05/20 23:59 03/09/20 20:47 Hydroxyzine Hcl 25 Mg Tablet PO 25 mg BEDTIME PRN Administration Anxiety Magnesium Hydroxide 30 ml 03/05/20 23:59 Milk Of Magnesia 30 Ml Oral.Susp PO DAILY PRN Constipation Midodrine 5 mg 03/06/20 08:00 03/16/20 08:53 Midodrine Hcl 5 Mg Tablet PO 5 mg TIDWM ELISEO Administration Omeprazole 40 mg 03/06/20 09:00 03/16/20 08:52 Omeprazole 40 Mg Capsule.Dr PO 40 mg DAILY ELISEO Administration Quetiapine Fumarate 50 mg 03/05/20 23:59 03/14/20 03:55 Quetiapine Fumarate 50 Mg Tablet PO 50 mg TID PRN Administration Anxiety Quetiapine Fumarate 100 mg 03/11/20 21:00 03/15/20 21:02 Quetiapine Fumarate 100 Mg Tablet PO 100 mg BEDTIME ELISEO Administration Tizanidine HCl 4 mg 03/05/20 23:59 03/16/20 08:52 Tizanidine Hcl 4 Mg Tablet PO 4 mg Q4H PRN Administration Muscle Spasm Trazodone HCl 50 mg 03/05/20 23:59 Trazodone Hcl 50 Mg Tablet PO BEDTIME PRN Insomnia Allergies Allergies Allergy/AdvReac Type Severity Reaction Status Date / Time acetaminophen [From TYLENOL] Allergy Unknown UNK Verified 03/04/20 16:58 codeine [CODEINE] Allergy Unknown RASH Verified 03/04/20 16:58 pneumococcal vaccine Allergy Unknown PARALYSIS Verified 03/04/20 16:58 [PNEUMOCOCCAL VACCINE] tuberculin, purified protein Allergy Unknown RASH Verified 03/04/20 16:58 deriva [TUBERCULIN, PURIFIED PROTEIN DERIVA] venlafaxine [From EFFEXOR] AdvReac Unknown UNKNOWN Verified 03/04/20 16:58 Assessment & Plan Assessment & Plan (1) Major depress dis, severe: Status: Acute Code(s): F32.2 - Major depressive disorder, single episode, severe without psychotic features (2) Cerebral microvascular disease: Status: Acute Code(s): I67.89 - Other cerebrovascular disease (3) Physical deconditioning: Status: Acute Code(s): R53.81 - Other malaise Assessment and Plan: CT current medications as they are MOCA Refer to STR Greater than 50% of the session was spent on counseling and/or coordination of care Patient educated on: diagnosis, medication risk/benefits, substance abuse and medical condition Informed Consent: further education needed Reason for contiued inpatient stay Substantial Risk for: rapid decompensation
[2020-03-16] MEDS: Buprenorphine/Naloxone 4/1 mg FILM 1 FILM SUBLINGUAL (09:54)
[2020-03-16 14:08] VITALS: BP 142/81; PULSE 70
[2020-03-16 14:11] VITALS: BP 159/88; PULSE 66
[2020-03-16 17:44] VITALS: BP 174/94; PULSE 60
[2020-03-16 17:52] VITALS: BP 174/94; PULSE 60; TEMP 36
[2020-03-16] MEDS: QUEtiapine Fumarate 100 MG TABLET PO (22:06)
[2020-03-17] MEDS: TiZANidine HCL 4 MG TABLET PO ×5 (03:30→22:50)
[2020-03-17 06:20] VITALS: BP 127/76; PULSE 62; RESP 18; TEMP 36.4
[2020-03-17] MEDS: FLUoxetine HCl 20 MG CAPSULE PO (08:46)
[2020-03-17 08:47] VITALS: BP 127/76; PULSE 62
[2020-03-17] MEDS: Midodrine HCl 5 MG TABLET PO ×3 (08:47→16:42)
[2020-03-17] MEDS: Omeprazole 40 MG CAPSULE.DR PO (08:47)
[2020-03-17] MEDS: Gabapentin 400 MG CAPSULE PO ×3 (08:47→22:53)
[2020-03-17] MEDS: Clotrimazole 1 % Cream 15 GM TUBE 1 APPL TOPICAL ×2 (08:48→22:53)
--- NOTE | 2020-03-17 09:29 | HO.PSYCHPN ---
Subjective Subjective Date of Service: 03/17/20 Reason For Visit: Crisis Subjective Notes: Conditional Voluntary Interim History: Mirza has been much calmer today and he has been more accepting of his medications which have been pared down quite extensively. After waking this morning he was more alert and engaged. He is steady on his feet, and no longer needs a 1:1. He was much clearer in his thinking We discussed HCP. He is aware of what a HCP is and has the capacity to appoint one. He is thinking about who he might be able to appoint. MOCA is pending. Medication Compliance: Yes Side effects from medications: No Attending Groups: No Review of Systems Acute medical concerns: No Medical Review of Systems: unchanged Review of Systems Constitutional: Reports weakness Reports weakness Mental Status Exam Mental Status Exam Patient Appearance: Disheveled and Unkempt Patient Orientation: Person, Place, Time and Situation Level of Consciousness: Awake Patient Behavior: Passive, Distractible and Confused Mood Description: Calm Affect Description: Calm and Blunted Ability to Follow Directions: Good Speech Pattern: Monotone and Poor Articulation Memory Description: Immediate Impaired Hallucinations: None Delusions: Not Present Thought Process: Disoriented and Slowed Thinking Thought Content: positive for Slowed Thinking, negative for Suicidal Ideation and negative for Homicidal Ideation Depressive Symptoms: Difficulty Concentrating Abnormal Motor Activity Signs and Symptoms: Psychomotor Retardation Judgement: Fair Diagnostics Vital Signs (24Hr): Vital Signs - 24 hr 03/16/20 14:08 03/16/20 14:11 03/16/20 17:44 Temperature Pulse Rate 70 66 60 Respiratory Rate Blood Pressure 142/81 H 159/88 H 174/94 H 03/16/20 17:52 03/17/20 06:20 03/17/20 08:47 Temperature 96.8 F 97.6 F Pulse Rate 60 62 62 Respiratory Rate 18 Blood Pressure 174/94 H 127/76 127/76 Body Mass Index 26.8 Labs Results: 03/04/20 20:44 Medications Medications Current Medications Generic Name Dose Route Start Last Admin Trade Name Freq PRN Reason Stop Dose Admin Acetaminophen 650 mg 03/05/20 23:59 03/09/20 20:48 Acetaminophen 325 Mg Tablet PO 650 mg Q6H PRN Administration Headache/Pain Mild Scale (1-3) Al Hydroxide/Mg Hydroxide 30 ml 03/05/20 23:59 Magnesium Hydrox/Alum Hydrox 30 Ml Oral.Susp PO Q6H PRN Heartburn/Nausea Buprenorphine/Naloxone 1 film 03/15/20 11:45 03/17/20 08:48 Buprenorphine/Naloxone 4/1 Mg Film SUBLINGUAL 1 film DAILY ELISEO Administration Clotrimazole 1 appl 03/15/20 21:00 03/17/20 08:48 Clotrimazole 1 % Cream 15 Gm Tube TOPICAL 1 appl BID ELISEO Administration Protocol Fluoxetine HCl 20 mg 03/10/20 09:00 03/17/20 08:46 Fluoxetine Hcl 20 Mg Capsule PO 20 mg DAILY ELISEO Administration Gabapentin 400 mg 03/11/20 09:00 03/17/20 08:47 Gabapentin 400 Mg Capsule PO 400 mg TID ELISEO Administration Hydroxyzine HCl 25 mg 03/05/20 23:59 03/09/20 20:47 Hydroxyzine Hcl 25 Mg Tablet PO 25 mg BEDTIME PRN Administration Anxiety Magnesium Hydroxide 30 ml 03/05/20 23:59 Milk Of Magnesia 30 Ml Oral.Susp PO DAILY PRN Constipation Midodrine 5 mg 03/06/20 08:00 03/17/20 08:47 Midodrine Hcl 5 Mg Tablet PO 5 mg TIDWM ELISEO Administration Omeprazole 40 mg 03/06/20 09:00 03/17/20 08:47 Omeprazole 40 Mg Capsule.Dr PO 40 mg DAILY ELISEO Administration Quetiapine Fumarate 50 mg 03/05/20 23:59 03/14/20 03:55 Quetiapine Fumarate 50 Mg Tablet PO 50 mg TID PRN Administration Anxiety Quetiapine Fumarate 100 mg 03/11/20 21:00 03/16/20 22:06 Quetiapine Fumarate 100 Mg Tablet PO 100 mg BEDTIME ELISEO Administration Tizanidine HCl 4 mg 03/05/20 23:59 03/17/20 08:51 Tizanidine Hcl 4 Mg Tablet PO 4 mg Q4H PRN Administration Muscle Spasm Trazodone HCl 50 mg 03/05/20 23:59 Trazodone Hcl 50 Mg Tablet PO BEDTIME PRN Insomnia Allergies Allergies Allergy/AdvReac Type Severity Reaction Status Date / Time acetaminophen [From TYLENOL] Allergy Unknown UNK Verified 03/04/20 16:58 codeine [CODEINE] Allergy Unknown RASH Verified 03/04/20 16:58 pneumococcal vaccine Allergy Unknown PARALYSIS Verified 03/04/20 16:58 [PNEUMOCOCCAL VACCINE] tuberculin, purified protein Allergy Unknown RASH Verified 03/04/20 16:58 deriva [TUBERCULIN, PURIFIED PROTEIN DERIVA] venlafaxine [From EFFEXOR] AdvReac Unknown UNKNOWN Verified 03/04/20 16:58 Assessment & Plan Assessment & Plan (1) Major depress dis, severe: Status: Acute Code(s): F32.2 - Major depressive disorder, single episode, severe without psychotic features (2) Physical deconditioning: Status: Acute Code(s): R53.81 - Other malaise Assessment and Plan: Continue current medications Look in to STR Explore HCP options Greater than 50% of the session was spent on counseling and/or coordination of care Patient educated on: diagnosis, medication risk/benefits, substance abuse and medical condition Informed Consent: further education needed Reason for contiued inpatient stay Substantial Risk for: rapid decompensation
[2020-03-17 13:17] VITALS: BP 135/75; PULSE 68
[2020-03-17 14:45] VITALS: BP 135/75; PULSE 68
[2020-03-17] MEDS: Acetaminophen 325 MG TABLET 650 MG PO (16:41)
[2020-03-17 16:42] VITALS: BP 154/85; PULSE 61
[2020-03-17] MEDS: QUEtiapine Fumarate 50 MG TABLET PO ×2 (16:53→22:51)
[2020-03-17 22:00] VITALS: BP 119/71; PULSE 63; TEMP 36.2
[2020-03-17] MEDS: QUEtiapine Fumarate 100 MG TABLET PO (22:51)
[2020-03-18 05:55] VITALS: BP 140/79; PULSE 68; RESP 16; TEMP 36.3
[2020-03-18 08:55] VITALS: BP 140/79; PULSE 68
[2020-03-18] MEDS: Omeprazole 40 MG CAPSULE.DR PO (08:55)
[2020-03-18] MEDS: Midodrine HCl 5 MG TABLET PO ×3 (08:55→17:10)
[2020-03-18] MEDS: Gabapentin 400 MG CAPSULE PO ×3 (08:55→20:56)
[2020-03-18] MEDS: TiZANidine HCL 4 MG TABLET PO ×3 (08:56→18:31)
[2020-03-18] MEDS: FLUoxetine HCl 20 MG CAPSULE PO (08:56)
--- NOTE | 2020-03-18 09:17 | P.PNPSI_ITS ---
Subjective Subjective Date of Service: 03/18/20 Reason For Visit: Crisis Subjective Notes: Conditional Voluntary Interim History: Mirza has been much calmer today. He had a shower and is engaged with SW regarding placement options. He has not been taking suboxone and it will be DC. He was much clearer in his thinking We discussed HCP. He is aware of what a HCP is and has the capacity to appoint one. He is thinking about who he might be able to appoint. MOCA was Medication Compliance: Yes Side effects from medications: No Attending Groups: No Review of Systems Acute medical concerns: No Medical Review of Systems: unchanged Review of Systems Constitutional: Reports weakness Reports weakness Mental Status Exam Mental Status Exam Patient Appearance: Well Grooomed Patient Orientation: Person, Place, Time and Situation Level of Consciousness: Awake Patient Behavior: Dependent and Passive Mood Description: Calm Affect Description: Calm and Blunted Ability to Follow Directions: Good Speech Pattern: Monotone and Poor Articulation Memory Description: Immediate Impaired Hallucinations: None Delusions: Not Present Thought Process: Disoriented and Slowed Thinking Thought Content: positive for Slowed Thinking, negative for Suicidal Ideation and negative for Homicidal Ideation Depressive Symptoms: Difficulty Concentrating Abnormal Motor Activity Signs and Symptoms: Psychomotor Retardation Judgement: Fair Diagnostics Vital Signs (24Hr): Vital Signs - 24 hr 03/17/20 13:17 03/17/20 14:45 03/17/20 16:42 Temperature Pulse Rate 68 68 61 Respiratory Rate Blood Pressure 135/75 135/75 154/85 H 03/17/20 22:00 03/18/20 05:55 03/18/20 08:55 Temperature 97.1 F 97.4 F Pulse Rate 63 68 68 Respiratory Rate 16 Blood Pressure 119/71 140/79 H 140/79 H Body Mass Index 26.8 Labs Results: 03/04/20 20:44 Medications Medications Current Medications Generic Name Dose Route Start Last Admin Trade Name Freq PRN Reason Stop Dose Admin Acetaminophen 650 mg 03/05/20 23:59 03/17/20 16:41 Acetaminophen 325 Mg Tablet PO 650 mg Q6H PRN Administration Headache/Pain Mild Scale (1-3) Al Hydroxide/Mg Hydroxide 30 ml 03/05/20 23:59 Magnesium Hydrox/Alum Hydrox 30 Ml Oral.Susp PO Q6H PRN Heartburn/Nausea Buprenorphine/Naloxone 1 film 03/15/20 11:45 03/18/20 08:58 Buprenorphine/Naloxone 4/1 Mg Film SUBLINGUAL Not Given DAILY ELISEO Clotrimazole 1 appl 03/15/20 21:00 03/17/20 22:53 Clotrimazole 1 % Cream 15 Gm Tube TOPICAL 1 appl BID ELISEO Administration Protocol Fluoxetine HCl 20 mg 03/10/20 09:00 03/18/20 08:56 Fluoxetine Hcl 20 Mg Capsule PO 20 mg DAILY ELISEO Administration Gabapentin 400 mg 03/11/20 09:00 03/18/20 08:55 Gabapentin 400 Mg Capsule PO 400 mg TID ELISEO Administration Hydroxyzine HCl 25 mg 03/05/20 23:59 03/09/20 20:47 Hydroxyzine Hcl 25 Mg Tablet PO 25 mg BEDTIME PRN Administration Anxiety Magnesium Hydroxide 30 ml 03/05/20 23:59 Milk Of Magnesia 30 Ml Oral.Susp PO DAILY PRN Constipation Midodrine 5 mg 03/06/20 08:00 03/18/20 08:55 Midodrine Hcl 5 Mg Tablet PO 5 mg TIDWM ELISEO Administration Omeprazole 40 mg 03/06/20 09:00 03/18/20 08:55 Omeprazole 40 Mg Capsule.Dr PO 40 mg DAILY ELISEO Administration Quetiapine Fumarate 50 mg 03/05/20 23:59 03/17/20 22:51 Quetiapine Fumarate 50 Mg Tablet PO 50 mg TID PRN Administration Anxiety Quetiapine Fumarate 100 mg 03/11/20 21:00 03/17/20 22:51 Quetiapine Fumarate 100 Mg Tablet PO 100 mg BEDTIME ELISEO Administration Tizanidine HCl 4 mg 03/05/20 23:59 03/18/20 08:56 Tizanidine Hcl 4 Mg Tablet PO 4 mg Q4H PRN Administration Muscle Spasm Trazodone HCl 50 mg 03/05/20 23:59 Trazodone Hcl 50 Mg Tablet PO BEDTIME PRN Insomnia Allergies Allergies Allergy/AdvReac Type Severity Reaction Status Date / Time acetaminophen [From TYLENOL] Allergy Unknown UNK Verified 03/04/20 16:58 codeine [CODEINE] Allergy Unknown RASH Verified 03/04/20 16:58 pneumococcal vaccine Allergy Unknown PARALYSIS Verified 03/04/20 16:58 [PNEUMOCOCCAL VACCINE] tuberculin, purified protein Allergy Unknown RASH Verified 03/04/20 16:58 deriva [TUBERCULIN, PURIFIED PROTEIN DERIVA] venlafaxine [From EFFEXOR] AdvReac Unknown UNKNOWN Verified 03/04/20 16:58 Assessment & Plan Assessment & Plan (1) Major depress dis, severe: Status: Acute Code(s): F32.2 - Major depressive disorder, single episode, severe without psychotic features (2) Cerebral microvascular disease: Status: Acute Code(s): I67.89 - Other cerebrovascular disease Assessment and Plan: Continue medication without change except to DC subxone CT to investigate placement options Greater than 50% of the session was spent on counseling and/or coordination of care Patient educated on: diagnosis, medication risk/benefits, substance abuse and me dical condition Informed Consent: further education needed Reason for contiued inpatient stay Substantial Risk for: rapid decompensation
[2020-03-18 13:20] VITALS: BP 156/81; PULSE 68
[2020-03-18] MEDS: Clotrimazole 1 % Cream 15 GM TUBE 1 APPL TOPICAL (13:20)
[2020-03-18 15:08] VITALS: BMI 27.8
[2020-03-18 17:10] VITALS: BP 147/76; PULSE 65
[2020-03-18 17:11] VITALS: TEMP 35.9
[2020-03-18] MEDS: QUEtiapine Fumarate 100 MG TABLET PO (20:56)
[2020-03-19] MEDS: QUEtiapine Fumarate 50 MG TABLET PO (00:25)
[2020-03-19] MEDS: TiZANidine HCL 4 MG TABLET PO ×4 (00:25→18:01)
[2020-03-19 05:55] VITALS: BP 150/84; PULSE 68; RESP 18; TEMP 36.2; O2SAT 96
[2020-03-19 08:47] VITALS: BP 150/84; PULSE 68
[2020-03-19] MEDS: Midodrine HCl 5 MG TABLET PO ×3 (08:47→18:01)
[2020-03-19] MEDS: Gabapentin 400 MG CAPSULE PO ×3 (08:47→20:34)
[2020-03-19] MEDS: Omeprazole 40 MG CAPSULE.DR PO (08:47)
[2020-03-19] MEDS: FLUoxetine HCl 20 MG CAPSULE PO (08:47)
[2020-03-19] MEDS: Clotrimazole 1 % Cream 15 GM TUBE 1 APPL TOPICAL (08:48)
--- NOTE | 2020-03-19 13:58 | HO.PSYCHPN ---
Subjective Subjective Date of Service: 03/19/20 Reason For Visit: Crisis Subjective Notes: Conditional Voluntary Interim History: Mirza has been much calmer today. He had a shower and is engaged with SW regarding placement options. He was much clearer in his thinking We discussed HCP. He is aware of what a HCP is and has the capacity to appoint one. He is thinking about who he might be able to appoint. SW is also looking in to options for a rest home. MOCA was Medication Compliance: Yes Side effects from medications: No Attending Groups: No Review of Systems Acute medical concerns: No Medical Review of Systems: unchanged Review of Systems Constitutional: Reports weakness Reports weakness Mental Status Exam Mental Status Exam Patient Appearance: Well Grooomed Patient Orientation: Person, Place, Time and Situation Level of Consciousness: Awake Patient Behavior: Dependent and Passive Mood Description: Calm Affect Description: Calm and Blunted Ability to Follow Directions: Good Speech Pattern: Monotone and Poor Articulation Memory Description: Immediate Impaired Hallucinations: None Delusions: Not Present Thought Process: Disoriented and Slowed Thinking Thought Content: positive for Slowed Thinking, negative for Suicidal Ideation and negative for Homicidal Ideation Depressive Symptoms: Difficulty Concentrating Abnormal Motor Activity Signs and Symptoms: Psychomotor Retardation Judgement: Fair Diagnostics Vital Signs (24Hr): Vital Signs - 24 hr 03/18/20 17:10 03/18/20 17:11 03/19/20 05:55 Temperature 96.7 F L 97.1 F Pulse Rate 65 68 Respiratory Rate 18 Blood Pressure 147/76 H 150/84 H Pulse Oximetry 96 03/19/20 08:47 Temperature Pulse Rate 68 Respiratory Rate Blood Pressure 150/84 H Pulse Oximetry Body Mass Index 27.8 Labs Results: 03/04/20 20:44 Medications Medications Current Medications Generic Name Dose Route Start Last Admin Trade Name Freq PRN Reason Stop Dose Admin Acetaminophen 650 mg 03/05/20 23:59 03/17/20 16:41 Acetaminophen 325 Mg Tablet PO 650 mg Q6H PRN Administration Headache/Pain Mild Scale (1-3) Al Hydroxide/Mg Hydroxide 30 ml 03/05/20 23:59 Magnesium Hydrox/Alum Hydrox 30 Ml Oral.Susp PO Q6H PRN Heartburn/Nausea Clotrimazole 1 appl 03/15/20 21:00 03/19/20 08:48 Clotrimazole 1 % Cream 15 Gm Tube TOPICAL 1 appl BID ELISEO Administration Protocol Fluoxetine HCl 20 mg 03/10/20 09:00 03/19/20 08:47 Fluoxetine Hcl 20 Mg Capsule PO 20 mg DAILY ELISEO Administration Gabapentin 400 mg 03/11/20 09:00 03/19/20 13:11 Gabapentin 400 Mg Capsule PO 400 mg TID ELISEO Administration Hydroxyzine HCl 25 mg 03/05/20 23:59 03/09/20 20:47 Hydroxyzine Hcl 25 Mg Tablet PO 25 mg BEDTIME PRN Administration Anxiety Magnesium Hydroxide 30 ml 03/05/20 23:59 Milk Of Magnesia 30 Ml Oral.Susp PO DAILY PRN Constipation Midodrine 5 mg 03/06/20 08:00 03/19/20 13:11 Midodrine Hcl 5 Mg Tablet PO 5 mg TIDWM ELISEO Administration Omeprazole 40 mg 03/06/20 09:00 03/19/20 08:47 Omeprazole 40 Mg Capsule.Dr PO 40 mg DAILY ELISEO Administration Quetiapine Fumarate 50 mg 03/05/20 23:59 03/19/20 00:25 Quetiapine Fumarate 50 Mg Tablet PO 50 mg TID PRN Administration Anxiety Quetiapine Fumarate 100 mg 03/11/20 21:00 03/18/20 20:56 Quetiapine Fumarate 100 Mg Tablet PO 100 mg BEDTIME ELISEO Administration Tizanidine HCl 4 mg 03/05/20 23:59 03/19/20 13:11 Tizanidine Hcl 4 Mg Tablet PO 4 mg Q4H PRN Administration Muscle Spasm Trazodone HCl 50 mg 03/05/20 23:59 Trazodone Hcl 50 Mg Tablet PO BEDTIME PRN Insomnia Allergies Allergies Allergy/AdvReac Type Severity Reaction Status Date / Time acetaminophen [From TYLENOL] Allergy Unknown UNK Verified 03/04/20 16:58 codeine [CODEINE] Allergy Unknown RASH Verified 03/04/20 16:58 pneumococcal vaccine Allergy Unknown PARALYSIS Verified 03/04/20 16:58 [PNEUMOCOCCAL VACCINE] tuberculin, purified protein Allergy Unknown RASH Verified 03/04/20 16:58 deriva [TUBERCULIN, PURIFIED PROTEIN DERIVA] venlafaxine [From EFFEXOR] AdvReac Unknown UNKNOWN Verified 03/04/20 16:58 Assessment & Plan Assessment & Plan (1) Major depress dis, severe: Status: Acute Code(s): F32.2 - Major depressive disorder, single episode, severe without psychotic features (2) Cerebral microvascular disease: Status: Acute Code(s): I67.89 - Other cerebrovascular disease Assessment and Plan: Lázaro is stable, but at high risk if he were to be on the streets. CT current treatment plan. Greater than 50% of the session was spent on counseling and/or coordination of care Patient educated on: diagnosis, medication risk/benefits, substance abuse and medical condition Informed Consent: further education needed Reason for contiued inpatient stay Substantial Risk for: inability to function and rapid decompensation
--- NOTE | 2020-03-19 14:37 | PC.NURSE ---
Pt participated in [facility] screen, 7.1 version, scored 19/30, indicating cognition in below normal limits, MD morfin
--- NOTE | 2020-03-19 15:27 | MHC.CM.PN ---
Case management attempting to assist with placement. Current efforts are for [facility]. Will update once plans are secured.
[2020-03-19 16:30] VITALS: BP 165/89; PULSE 62; TEMP 36.4
--- NOTE | 2020-03-19 16:31 | MHC.CM.PN ---
REFERRAL ATTEMPTS NOW INCLUDE [facility] AND [facility]. BOTH FACILITIES UPDATED IN [facility]. WILL NEED MDS UPON ACCEPTANCE. SW AWARE THAT CM CAN ASSIST ATANYTIME.
[2020-03-19 18:01] VITALS: BP 159/84; PULSE 65
[2020-03-19] MEDS: QUEtiapine Fumarate 100 MG TABLET PO (20:34)
[2020-03-20 09:00] VITALS: BP 186/88; PULSE 76
[2020-03-20] MEDS: Gabapentin 400 MG CAPSULE PO ×3 (09:00→20:05)
[2020-03-20] MEDS: Midodrine HCl 5 MG TABLET PO ×3 (09:00→17:06)
[2020-03-20] MEDS: Clotrimazole 1 % Cream 15 GM TUBE 1 APPL TOPICAL (09:01)
[2020-03-20] MEDS: FLUoxetine HCl 20 MG CAPSULE PO (09:01)
[2020-03-20] MEDS: Omeprazole 40 MG CAPSULE.DR PO (09:01)
[2020-03-20 09:03] VITALS: BP 186/88; PULSE 76; RESP 12; TEMP 36.4; O2SAT 98
[2020-03-20] MEDS: TiZANidine HCL 4 MG TABLET PO ×3 (09:29→20:05)
[2020-03-20 13:36] VITALS: BP 143/82; PULSE 61
[2020-03-20 17:06] VITALS: BP 158/79; PULSE 56
[2020-03-20 17:27] VITALS: BP 158/79; PULSE 56; TEMP 36.6
[2020-03-20] MEDS: Acetaminophen 325 MG TABLET 650 MG PO (18:06)
[2020-03-20] MEDS: QUEtiapine Fumarate 100 MG TABLET PO (20:05)
--- NOTE | 2020-03-20 20:27 | HO.PSYCHPN ---
Subjective Subjective Reason For Visit: Crisis Subjective Notes: Conditional Voluntary Interim History: Mirza has been calm today. He is caring for his appearance more and visible on unit. He was much clearer in his thinking SW is also looking in to options for a rest home. Medication Compliance: Yes Side effects from medications: No Attending Groups: No Review of Systems Acute medical concerns: No Medical Review of Systems: unchanged (edema bilateral legs reduced ) Review of Systems Constitutional: Reports weakness Reports weakness Mental Status Exam Mental Status Exam Patient Appearance: Well Grooomed Patient Orientation: Person, Place, Time and Situation Level of Consciousness: Awake Patient Behavior: Dependent and Passive Mood Description: Calm Affect Description: Calm and Blunted Ability to Follow Directions: Good Speech Pattern: Monotone and Poor Articulation Memory Description: Immediate Impaired Hallucinations: None Delusions: Not Present Thought Process: Disoriented and Slowed Thinking Thought Content: positive for Slowed Thinking, negative for Suicidal Ideation and negative for Homicidal Ideation Depressive Symptoms: Difficulty Concentrating Abnormal Motor Activity Signs and Symptoms: Psychomotor Retardation Judgement: Fair Diagnostics Vital Signs (24Hr): Vital Signs - 24 hr 03/20/20 09:00 03/20/20 09:03 03/20/20 13:36 Temperature 97.5 F Pulse Rate 76 76 61 Respiratory Rate 12 Blood Pressure 186/88 H 186/88 H 143/82 H Pulse Oximetry 98 03/20/20 17:06 03/20/20 17:27 Temperature 97.8 F Pulse Rate 56 56 Respiratory Rate Blood Pressure 158/79 H 158/79 H Pulse Oximetry Body Mass Index 27.8 Labs Results: 03/04/20 20:44 Medications Medications Current Medications Generic Name Dose Route Start Last Admin Trade Name Freq PRN Reason Stop Dose Admin Acetaminophen 650 mg 03/05/20 23:59 03/20/20 18:06 Acetaminophen 325 Mg Tablet PO 650 mg Q6H PRN Administration Headache/Pain Mild Scale (1-3) Al Hydroxide/Mg Hydroxide 30 ml 03/05/20 23:59 Magnesium Hydrox/Alum Hydrox 30 Ml Oral.Susp PO Q6H PRN Heartburn/Nausea Clotrimazole 1 appl 03/15/20 21:00 03/20/20 20:13 Clotrimazole 1 % Cream 15 Gm Tube TOPICAL Not Given BID [facility] Protocol Fluoxetine HCl 20 mg 03/10/20 09:00 03/20/20 09:01 Fluoxetine Hcl 20 Mg Capsule PO 20 mg DAILY ELISEO Administration Gabapentin 400 mg 03/11/20 09:00 03/20/20 20:05 Gabapentin 400 Mg Capsule PO 400 mg TID ELISEO Administration Hydroxyzine HCl 25 mg 03/05/20 23:59 03/09/20 20:47 Hydroxyzine Hcl 25 Mg Tablet PO 25 mg BEDTIME PRN Administration Anxiety Magnesium Hydroxide 30 ml 03/05/20 23:59 Milk Of Magnesia 30 Ml Oral.Susp PO DAILY PRN Constipation Midodrine 5 mg 03/06/20 08:00 03/20/20 17:06 Midodrine Hcl 5 Mg Tablet PO 5 mg TIDWM ELISEO Administration Omeprazole 40 mg 03/06/20 09:00 03/20/20 09:01 Omeprazole 40 Mg Capsule.Dr PO 40 mg DAILY ELISEO Administration Quetiapine Fumarate 50 mg 03/05/20 23:59 03/19/20 00:25 Quetiapine Fumarate 50 Mg Tablet PO 50 mg TID PRN Administration Anxiety Quetiapine Fumarate 100 mg 03/11/20 21:00 03/20/20 20:05 Quetiapine Fumarate 100 Mg Tablet PO 100 mg BEDTIME ELISEO Administration Tizanidine HCl 4 mg 03/05/20 23:59 03/20/20 20:05 Tizanidine Hcl 4 Mg Tablet PO 4 mg Q4H PRN Administration Muscle Spasm Trazodone HCl 50 mg 03/05/20 23:59 Trazodone Hcl 50 Mg Tablet PO BEDTIME PRN Insomnia Allergies Allergies Allergy/AdvReac Type Severity Reaction Status Date / Time acetaminophen [From TYLENOL] Allergy Unknown UNK Verified 03/04/20 16:58 codeine [CODEINE] Allergy Unknown RASH Verified 03/04/20 16:58 pneumococcal vaccine Allergy Unknown PARALYSIS Verified 03/04/20 16:58 [PNEUMOCOCCAL VACCINE] tuberculin, purified protein Allergy Unknown RASH Verified 03/04/20 16:58 deriva [TUBERCULIN, PURIFIED PROTEIN DERIVA] venlafaxine [From EFFEXOR] AdvReac Unknown UNKNOWN Verified 03/04/20 16:58 Assessment & Plan Assessment & Plan (1) Major depress dis, severe: Status: Acute Code(s): F32.2 - Major depressive disorder, single episode, severe without psychotic features (2) 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: Status: Acute Code(s): I69.814 - 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 (3) Opioid use disorder, moderate, in controlled environment: Status: Acute Code(s): F11.20 - Opioid dependence, uncomplicated (4) Physical deconditioning: Status: Acute Code(s): R53.81 - Other malaise (5) Major depression, recurrent: Qualifiers: Active/Remission status: currently active Major depression episode severity: severe Psychotic features: without psychotic features Qualified Code(s): F33.2 - Major depressive disorder, recurrent severe without psychotic features Status: Acute Code(s): F33.9 - Major depressive disorder, recurrent, unspecified (6) Suicidal ideation: Status: Acute Code(s): R45.851 - Suicidal ideations Assessment and Plan: Continue current treatment plan. Greater than 50% of the session was spent on counseling and/or coordination of care Patient educated on: diagnosis, medication risk/benefits, substance abuse and medical condition Informed Consent: further education needed Reason for contiued inpatient stay Substantial Risk for: inability to function and rapid decompensation Greater than 50% of the session was spent on counseling and/or coordination of care
[2020-03-20 22:00] VITALS: BP 158/76; PULSE 56; TEMP 36.6
[2020-03-21] VITALS (7 sets, daily range): BP systolic 135–185; BP diastolic 73–91; PULSE 56–90; TEMP 35.6–36.9
[2020-03-21] MEDS: TiZANidine HCL 4 MG TABLET PO ×5 (02:05→21:36)
[2020-03-21] MEDS: Midodrine HCl 5 MG TABLET PO ×3 (08:44→17:09)
[2020-03-21] MEDS: Gabapentin 400 MG CAPSULE PO ×3 (08:44→21:18)
[2020-03-21] MEDS: Clotrimazole 1 % Cream 15 GM TUBE 1 APPL TOPICAL ×2 (08:45→21:16)
[2020-03-21] MEDS: Omeprazole 40 MG CAPSULE.DR PO (08:45)
[2020-03-21] MEDS: FLUoxetine HCl 20 MG CAPSULE PO (09:03)
--- NOTE | 2020-03-21 10:38 | HO.PSYCHPN ---
Subjective Subjective Reason For Visit: Crisis Subjective Notes: Conditional Voluntary Interim History: Mirza presenting calm and with clear thinking. He is caring for his appearance more and visible on unit. SW is also looking in to options for a rest home. Medication Compliance: Yes Side effects from medications: No Attending Groups: No Review of Systems Acute medical concerns: No Medical Review of Systems: unchanged (edema bilateral legs reduced ) Review of Systems Constitutional: Reports weakness Reports weakness Mental Status Exam Mental Status Exam Patient Appearance: Well Grooomed Patient Orientation: Person, Place, Time and Situation Level of Consciousness: Awake Patient Behavior: Dependent and Passive Mood Description: Calm Affect Description: Calm and Blunted Ability to Follow Directions: Good Speech Pattern: Monotone and Poor Articulation Memory Description: Immediate Impaired Hallucinations: None Delusions: Not Present Thought Process: Slowed Thinking Thought Content: positive for Slowed Thinking, negative for Suicidal Ideation and negative for Homicidal Ideation Depressive Symptoms: Difficulty Concentrating Abnormal Motor Activity Signs and Symptoms: Psychomotor Retardation Judgement: Fair Diagnostics Vital Signs (24Hr): Vital Signs - 24 hr 03/20/20 13:36 03/20/20 17:06 03/20/20 17:27 Temperature 97.8 F Pulse Rate 61 56 56 Blood Pressure 143/82 H 158/79 H 158/79 H 03/20/20 22:00 03/21/20 07:25 03/21/20 08:44 Temperature 97.8 F 96.3 F L Pulse Rate 56 58 90 Blood Pressure 158/76 H 140/73 H 140/73 H Body Mass Index 27.8 Labs Results: 03/04/20 20:44 Medications Medications Current Medications Generic Name Dose Route Start Last Admin Trade Name Freq PRN Reason Stop Dose Admin Acetaminophen 650 mg 03/05/20 23:59 03/20/20 18:06 Acetaminophen 325 Mg Tablet PO 650 mg Q6H PRN Administration Headache/Pain Mild Scale (1-3) Al Hydroxide/Mg Hydroxide 30 ml 03/05/20 23:59 Magnesium Hydrox/Alum Hydrox 30 Ml Oral.Susp PO Q6H PRN Heartburn/Nausea Clotrimazole 1 appl 03/15/20 21:00 03/21/20 08:45 Clotrimazole 1 % Cream 15 Gm Tube TOPICAL 1 appl BID ELISEO Administration Protocol Fluoxetine HCl 20 mg 03/10/20 09:00 03/21/20 09:03 Fluoxetine Hcl 20 Mg Capsule PO 20 mg DAILY ELISEO Administration Gabapentin 400 mg 10/15/20 09:00 03/21/20 08:44 Gabapentin 400 Mg Capsule PO 400 mg TID ELISEO Administration Hydroxyzine HCl 25 mg 03/05/20 23:59 03/09/20 20:47 Hydroxyzine Hcl 25 Mg Tablet PO 25 mg BEDTIME PRN Administration Anxiety Magnesium Hydroxide 30 ml 03/05/20 23:59 Milk Of Magnesia 30 Ml Oral.Susp PO DAILY PRN Constipation Midodrine 5 mg 03/06/20 08:00 03/21/20 08:44 Midodrine Hcl 5 Mg Tablet PO 5 mg TIDWM ELISEO Administration Omeprazole 40 mg 03/06/20 09:00 03/21/20 08:45 Omeprazole 40 Mg Capsule.Dr PO 40 mg DAILY ELISEO Administration Quetiapine Fumarate 50 mg 03/05/20 23:59 03/19/20 00:25 Quetiapine Fumarate 50 Mg Tablet PO 50 mg TID PRN Administration Anxiety Quetiapine Fumarate 100 mg 03/11/20 21:00 03/20/20 20:05 Quetiapine Fumarate 100 Mg Tablet PO 100 mg BEDTIME ELISEO Administration Tizanidine HCl 4 mg 03/05/20 23:59 03/21/20 09:30 Tizanidine Hcl 4 Mg Tablet PO 4 mg Q4H PRN Administration Muscle Spasm Trazodone HCl 50 mg 03/05/20 23:59 Trazodone Hcl 50 Mg Tablet PO BEDTIME PRN Insomnia Allergies Allergies Allergy/AdvReac Type Severity Reaction Status Date / Time acetaminophen [From TYLENOL] Allergy Unknown UNK Verified 03/04/20 16:58 codeine [CODEINE] Allergy Unknown RASH Verified 03/04/20 16:58 pneumococcal vaccine Allergy Unknown PARALYSIS Verified 03/04/20 16:58 [PNEUMOCOCCAL VACCINE] tuberculin, purified protein Allergy Unknown RASH Verified 03/04/20 16:58 deriva [TUBERCULIN, PURIFIED PROTEIN DERIVA] venlafaxine [From EFFEXOR] AdvReac Unknown UNKNOWN Verified 03/04/20 16:58 Assessment & Plan Assessment & Plan (1) Major depression, recurrent: Qualifiers: Active/Remission status: currently active Major depression episode severity: severe Psychotic features: without psychotic features Qualified Code(s): F33.2 - Major depressive disorder, recurrent severe without psychotic features Status: Acute Code(s): F33.9 - Major depressive disorder, recurrent, unspecified (2) Suicidal ideation: Status: Acute Code(s): R45.851 - Suicidal ideations (3) Opioid use disorder, moderate, in controlled environment: Status: Acute Code(s): F11.20 - Opioid dependence, uncomplicated (4) 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 Greater than 50% of the session was spent on counseling and/or coordination of care Patient educated on: diagnosis, medication risk/benefits, substance abuse and medical condition Informed Consent: further education needed Reason for contiued inpatient stay Substantial Risk for: inability to function and rapid decompensation Greater than 50% of the session was spent on counseling and/or coordination of care
[2020-03-21] MEDS: Acetaminophen 325 MG TABLET 650 MG PO (17:17)
[2020-03-21] MEDS: QUEtiapine Fumarate 100 MG TABLET PO (21:17)
[2020-03-22 06:33] VITALS: BP 143/75; PULSE 51; RESP 16; TEMP 36.3
[2020-03-22 09:23] VITALS: BP 143/75; PULSE 58
[2020-03-22] MEDS: Midodrine HCl 5 MG TABLET PO ×3 (09:23→16:42)
[2020-03-22] MEDS: FLUoxetine HCl 20 MG CAPSULE PO (09:23)
[2020-03-22] MEDS: Gabapentin 400 MG CAPSULE PO ×3 (09:25→21:59)
[2020-03-22] MEDS: Omeprazole 40 MG CAPSULE.DR PO (09:25)
[2020-03-22] MEDS: Clotrimazole 1 % Cream 15 GM TUBE 1 APPL TOPICAL (09:33)
[2020-03-22] MEDS: TiZANidine HCL 4 MG TABLET PO ×3 (09:45→21:59)
--- NOTE | 2020-03-22 12:47 | HO.PSYCHPN ---
Subjective Subjective Date of Service: 03/22/20 Reason For Visit: Crisis Subjective Notes: Conditional Voluntary Interim History: Mirza presenting calm and with clear thinking. He is caring for his appearance more and visible on unit. He shaved his walsh, and is quite happy with himself. SW is also looking in to options for a rest home. Medication Compliance: Yes Side effects from medications: No Attending Groups: No Review of Systems Acute medical concerns: No Medical Review of Systems: unchanged (edema bilateral legs reduced ) Review of Systems Constitutional: Reports weakness Reports weakness Mental Status Exam Mental Status Exam Patient Appearance: Well Grooomed Patient Orientation: Person, Place, Time and Situation Level of Consciousness: Awake Patient Behavior: Dependent and Passive Mood Description: Calm Affect Description: Calm and Blunted Ability to Follow Directions: Good Speech Pattern: Monotone and Poor Articulation Memory Description: Immediate Impaired Hallucinations: None Delusions: Not Present Thought Process: Slowed Thinking Thought Content: positive for Slowed Thinking, negative for Suicidal Ideation and negative for Homicidal Ideation Depressive Symptoms: Difficulty Concentrating Abnormal Motor Activity Signs and Symptoms: Psychomotor Retardation Judgement: Fair Diagnostics Vital Signs (24Hr): Vital Signs - 24 hr 03/21/20 17:09 03/21/20 17:57 03/21/20 21:45 Temperature 98.4 F 96.1 F L Pulse Rate 61 61 56 Respiratory Rate Blood Pressure 185/91 H 185/91 H 135/82 03/22/20 06:33 03/22/20 09:23 Temperature 97.3 F Pulse Rate 51 58 Respiratory Rate 16 Blood Pressure 143/75 H 143/75 H Body Mass Index 27.8 Labs Results: 03/04/20 20:44 Medications Medications Current Medications Generic Name Dose Route Start Last Admin Trade Name Freq PRN Reason Stop Dose Admin Acetaminophen 650 mg 03/05/20 23:59 03/21/20 17:17 Acetaminophen 325 Mg Tablet PO 650 mg Q6H PRN Administration Headache/Pain Mild Scale (1-3) Al Hydroxide/Mg Hydroxide 30 ml 03/05/20 23:59 Magnesium Hydrox/Alum Hydrox 30 Ml Oral.Susp PO Q6H PRN Heartburn/Nausea Clotrimazole 1 appl 03/15/20 21:00 03/22/20 09:33 Clotrimazole 1 % Cream 15 Gm Tube TOPICAL 1 appl BID ELISEO Administration Protocol Fluoxetine HCl 20 mg 03/10/20 09:00 03/22/20 09:23 Fluoxetine Hcl 20 Mg Capsule PO 20 mg DAILY ELISEO Administration Gabapentin 400 mg 03/11/20 09:00 03/22/20 09:25 Gabapentin 400 Mg Capsule PO 400 mg TID ELISEO Administration Hydroxyzine HCl 25 mg 03/05/20 23:59 03/09/20 20:47 Hydroxyzine Hcl 25 Mg Tablet PO 25 mg BEDTIME PRN Administration Anxiety Magnesium Hydroxide 30 ml 03/05/20 23:59 Milk Of Magnesia 30 Ml Oral.Susp PO DAILY PRN Constipation Midodrine 5 mg 03/06/20 08:00 03/22/20 09:23 Midodrine Hcl 5 Mg Tablet PO 5 mg TIDWM ELISEO Administration Omeprazole 40 mg 03/06/20 09:00 03/22/20 09:25 Omeprazole 40 Mg Capsule.Dr PO 40 mg DAILY ELISEO Administration Quetiapine Fumarate 50 mg 03/05/20 23:59 03/19/20 00:25 Quetiapine Fumarate 50 Mg Tablet PO 50 mg TID PRN Administration Anxiety Quetiapine Fumarate 100 mg 03/11/20 21:00 03/21/20 21:17 Quetiapine Fumarate 100 Mg Tablet PO 100 mg BEDTIME ELISEO Administration Tizanidine HCl 4 mg 03/05/20 23:59 03/22/20 09:45 Tizanidine Hcl 4 Mg Tablet PO 4 mg Q4H PRN Administration Muscle Spasm Trazodone HCl 50 mg 03/05/20 23:59 Trazodone Hcl 50 Mg Tablet PO BEDTIME PRN Insomnia Allergies Allergies Allergy/AdvReac Type Severity Reaction Status Date / Time acetaminophen [From TYLENOL] Allergy Unknown UNK Verified 03/04/20 16:58 codeine [CODEINE] Allergy Unknown RASH Verified 03/04/20 16:58 pneumococcal vaccine Allergy Unknown PARALYSIS Verified 03/04/20 16:58 [PNEUMOCOCCAL VACCINE] tuberculin, purified protein Allergy Unknown RASH Verified 03/04/20 16:58 deriva [TUBERCULIN, PURIFIED PROTEIN DERIVA] venlafaxine [From EFFEXOR] AdvReac Unknown UNKNOWN Verified 03/04/20 16:58 Assessment & Plan Assessment & Plan (1) Major depress dis, severe: Status: Acute Code(s): F32.2 - Major depressive disorder, single episode, severe without psychotic features (2) Cerebral microvascular disease: Status: Acute Code(s): I67.89 - Other cerebrovascular disease Assessment and Plan: Continue current plan Look in to rest homes Greater than 50% of the session was spent on counseling and/or coordination of care Patient educated on: diagnosis, medication risk/benefits and substance abuse Informed Consent: further education needed Reason for contiued inpatient stay Substantial Risk for: rapid decompensation
--- NOTE | 2020-03-22 14:45 | MHC.CM.PN ---
PATIENT IS CLINICALLY ACCEPTED AT [facility].] MDS FAXED OT FACILITY. CASE MANAGEMENT CURRENTLY AWAITING PASRR LEVEL TWO CONFIRMATION AND THEN A DC TIME CAN BE ARRANGED. MDS FAXED TO [facility] SCREEN UNIT
--- NOTE | 2020-03-22 14:57 | MHC.CM.PN ---
[facility] LIAISON STATES THAT THE PASRR LEVEL TWO WILL NOT BE OBTAINED TODAY. FACILITY ANTICIPATES THAT IT WILL BE SECURED BY TOMORROW (03/23) UNIT COUNSELOR AND RN MADE AWARE
[2020-03-22 16:42] VITALS: BP 129/68; PULSE 58
[2020-03-22 19:19] VITALS: BP 129/68; PULSE 58; TEMP 36.1
[2020-03-22] MEDS: QUEtiapine Fumarate 100 MG TABLET PO (21:59)
[2020-03-22 22:00] VITALS: BP 175/82; PULSE 58
[2020-03-23] VITALS (7 sets, daily range): BP systolic 133–189; BP diastolic 64–112; PULSE 61–106; RESP 16; TEMP 36.2; O2SAT 99
--- NOTE | 2020-03-23 05:12 | HO.PSYCHPN ---
Subjective Subjective Date of Service: 03/23/20 Reason For Visit: Crisis Subjective Notes: Conditional Voluntary Interim History: Mirza presenting calm and with clear thinking. He is caring for his appearance more and visible on unit. He shaved his walsh, and is quite happy with himself. SEE Dr MOYA DC summary Pleased that he is going to a Rest Home. I need a quite place . DC to [facility]SHORT TERM [facility] expected length of STAY <30 days Medication Compliance: Yes Side effects from medications: No Attending Groups: Yes Review of Systems Constitutional: Reports weakness Reports weakness Mental Status Exam Mental Status Exam Patient Appearance: Well Grooomed Patient Orientation: Person, Place, Time and Situation Level of Consciousness: Awake Patient Behavior: Dependent and Passive Mood Description: Calm Affect Description: Calm and Blunted Ability to Follow Directions: Good Speech Pattern: Monotone and Poor Articulation Memory Description: Immediate Impaired Diagnostics Vital Signs (24Hr): Vital Signs - 24 hr 03/22/20 06:33 03/22/20 09:23 03/22/20 16:42 Temperature 97.3 F Pulse Rate 51 58 58 Respiratory Rate 16 Blood Pressure 143/75 H 143/75 H 129/68 03/22/20 19:19 03/22/20 22:00 Temperature 96.9 F Pulse Rate 58 58 Respiratory Rate Blood Pressure 129/68 175/82 H Body Mass Index 27.8 Labs Results: 03/04/20 20:44 Medications Medications Current Medications Generic Name Dose Route Start Last Admin Trade Name Freq PRN Reason Stop Dose Admin Acetaminophen 650 mg 03/05/20 23:59 03/21/20 17:17 Acetaminophen 325 Mg Tablet PO 650 mg Q6H PRN Administration Headache/Pain Mild Scale (1-3) Al Hydroxide/Mg Hydroxide 30 ml 03/05/20 23:59 Magnesium Hydrox/Alum Hydrox 30 Ml Oral.Susp PO Q6H PRN Heartburn/Nausea Clotrimazole 1 appl 03/15/20 21:00 03/22/20 22:10 Clotrimazole 1 % Cream 15 Gm Tube TOPICAL Not Given BID [facility] Protocol Fluoxetine HCl 20 mg 03/10/20 09:00 03/22/20 09:23 Fluoxetine Hcl 20 Mg Capsule PO 20 mg DAILY ELISEO Administration Gabapentin 400 mg 03/11/20 09:00 03/22/20 21:59 Gabapentin 400 Mg Capsule PO 400 mg TID ELISEO Administration Hydroxyzine HCl 25 mg 10/09/20 23:59 03/09/20 20:47 Hydroxyzine Hcl 25 Mg Tablet PO 25 mg BEDTIME PRN Administration Anxiety Magnesium Hydroxide 30 ml 03/05/20 23:59 Milk Of Magnesia 30 Ml Oral.Susp PO DAILY PRN Constipation Midodrine 5 mg 03/06/20 08:00 03/22/20 16:42 Midodrine Hcl 5 Mg Tablet PO 5 mg TIDWM ELISEO Administration Omeprazole 40 mg 03/06/20 09:00 03/22/20 09:25 Omeprazole 40 Mg Capsule.Dr PO 40 mg DAILY ELISEO Administration Quetiapine Fumarate 50 mg 03/05/20 23:59 03/19/20 00:25 Quetiapine Fumarate 50 Mg Tablet PO 50 mg TID PRN Administration Anxiety Quetiapine Fumarate 100 mg 03/11/20 21:00 03/22/20 21:59 Quetiapine Fumarate 100 Mg Tablet PO 100 mg BEDTIME ELISEO Administration Tizanidine HCl 4 mg 03/05/20 23:59 03/22/20 21:59 Tizanidine Hcl 4 Mg Tablet PO 4 mg Q4H PRN Administration Muscle Spasm Trazodone HCl 50 mg 03/05/20 23:59 Trazodone Hcl 50 Mg Tablet PO BEDTIME PRN Insomnia Allergies Allergies Allergy/AdvReac Type Severity Reaction Status Date / Time acetaminophen [From TYLENOL] Allergy Unknown UNK Verified 03/04/20 16:58 codeine [CODEINE] Allergy Unknown RASH Verified 03/04/20 16:58 pneumococcal vaccine Allergy Unknown PARALYSIS Verified 03/04/20 16:58 [PNEUMOCOCCAL VACCINE] tuberculin, purified protein Allergy Unknown RASH Verified 03/04/20 16:58 deriva [TUBERCULIN, PURIFIED PROTEIN DERIVA] venlafaxine [From EFFEXOR] AdvReac Unknown UNKNOWN Verified 03/04/20 16:58 Assessment & Plan Assessment & Plan (1) Major depress dis, severe: Status: Acute Code(s): F32.2 - Major depressive disorder, single episode, severe without psychotic features (2) Cerebral microvascular disease: Status: Acute Code(s): I67.89 - Other cerebrovascular disease Assessment and Plan: Continue current plan DC to [facility] for rehab expected to last <30 days Greater than 50% of the session was spent on counseling and/or coordination of care
[2020-03-23] MEDS: Midodrine HCl 5 MG TABLET PO ×3 (09:17→20:40)
[2020-03-23] MEDS: Omeprazole 40 MG CAPSULE.DR PO (09:18)
[2020-03-23] MEDS: FLUoxetine HCl 20 MG CAPSULE PO (09:18)
[2020-03-23] MEDS: Clotrimazole 1 % Cream 15 GM TUBE 1 APPL TOPICAL (09:18)
[2020-03-23] MEDS: Gabapentin 400 MG CAPSULE PO ×3 (09:18→21:04)
[2020-03-23] MEDS: Naloxone HCl Nasal TAKE HOME 4 MG SPRAY NOSTRILALT (09:19)
--- NOTE | 2020-03-23 12:25 | MHC.CM.PN ---
Addendum entered by Lilliana Cope 03/23/20 12:42: MESSAGE RECEIVED FROM [facility]. FACILITY IS UNABLE TO ACCEPT ON A LESS THAN 30 DAY ANTICIPATED STAY THEY HAD ORIGINALLY HOPED. CASE MANAGEMENT CONTINUING TO FOLLOW Original Note: PLAN IS FOR PATIENT TO TRANSPORT TO [facility] TODAY. CASE MANAGEMENT TO ARRANGE TRANSPORT ONCE A TIME IS AGREED UPON WITH FACILITY. REQUIRED DOCUMENTS FAXED TO [facility] SCREEN UNIT.
--- NOTE | 2020-03-23 19:42 | PC.ADMIT ---
this is the first admission for this 64 year old female. legal cv. dx mdd, severe. otoniel. pt was referred to by the CARE team after assessment and clearance from the emergency room. allowed for admission process although is depressed with significant s/s of anxiety. pt is restless, verbalizing feelings of hopelessness and that she feels as if ''i will never get better'' required much reinforcement of safety ''i don't want to be here, i don't want to be around people'' also reports that she is ''like this because i can't see'' reports this is due to ''my depression'' has insight into depression but limited in regards to level of anxiety she is experiencing. had reported si gesture before er visit in that she took a mouth full of medications that she reported was removed by her . no active si. does present as hopeless. pt is a good historian about medications. no drug/alcohol issues. medical issues include htn, hyperlipidemia, thyroid d/o. has current prescription for nitroglycerin and reports that she carries it with her but has not used. has multiple areas on arms, abdomen, scalp that are small, open, superficial areas that there due to picking at skin which are chronic in nature as evidenced by old scarring and pt identifying that ''i've been doing it for a long time'' pt and report significant weight loss. pt reports that she has ''no appetite''
[2020-03-23] MEDS: QUEtiapine Fumarate 100 MG TABLET PO (21:04)
[2020-03-23] MEDS: TiZANidine HCL 4 MG TABLET PO (21:04)
[2020-03-23] MEDS: Propranolol HCL 10 MG TABLET PO (21:54)
--- NOTE | 2020-03-24 00:01 | PC.NURSE ---
Pt was noted to have an elevated manual bp. Dr. Gilbert notified and Propanolol 10 mg TID prn elevated bp was ordered. Scheduled Midodrine 5 mg po tid with meals was discontinued. Pt's bp was 163/88 at shift change after Propanolol 10 mg was given. See JUL.
[2020-03-24] MEDS: TiZANidine HCL 4 MG TABLET PO ×3 (03:17→14:48)
[2020-03-24 03:19] VITALS: BP 146/80; PULSE 76
[2020-03-24 07:26] VITALS: BP 106/69; PULSE 46; TEMP 36.1
[2020-03-24] MEDS: FLUoxetine HCl 20 MG CAPSULE PO (08:47)
[2020-03-24] MEDS: Gabapentin 400 MG CAPSULE PO ×2 (08:47→14:39)
[2020-03-24] MEDS: Clotrimazole 1 % Cream 15 GM TUBE 1 APPL TOPICAL (08:47)
[2020-03-24] MEDS: Omeprazole 40 MG CAPSULE.DR PO (08:47)
[2020-03-24 11:33] VITALS: BP 155/84; PULSE 56; O2SAT 99
[2020-03-24] MEDS: Ibuprofen 400 MG TABLET PO ×2 (13:05→19:21)
--- NOTE | 2020-03-24 15:51 | MHC.CM.PN ---
PATIENT IS ABLE TO TRANSFER TO [facility]. REQUEST MADE FOR A 6 PM TRANSFER VIA [facility]. UNIT COUNSELOR MADE AWARE. COMPLETED TRANSPORT FORM TO BE BROUGHT TO UNIT. M5 STAFF TO INFORM PATIENT.
--- NOTE | 2020-03-24 16:02 | MHC.CM.PN ---
[facility] LITERARY AGENT, DARRICK ([phone]) MADE AWARE OF PATIENT DC TO [facility]. THIS ROLLER EMBOSSER BELIEVES ALL NECESSARY DOCUMENTS HAVE BEEN FAXED OVER THE PREVIOUS DAYS MESSAGE LEFT THAT IF ADDITIONAL INFO IS NEEDED, TO CONTACT OFFICE AND ASK FOR [place] [id number] LITERARY AGENT.
--- NOTE | 2020-03-24 16:09 | PC.NURSE ---
patient has been accepted to [facility]. will be transported today,
[2020-03-24 16:54] VITALS: BP 139/74; TEMP 36.4; O2SAT 100
--- NOTE | 2020-03-24 21:46 | PM.PSYDC ---
DS: Providers Provider Date of admission: 03/05/20 16:52 Primary care physician: Unknown Physician Attending physician on admission: Krissy Little Consults: 03/13/20 11:28 Consult to Podiatry Routine Consulting Provider: Valentina Huff Reason for consultation: ? fungal and digit pain and toenail Has provider been notified: No Attending physician on discharge: Krissy Little Anticipated date of discharge: 03/24/20 DS: Diagnosis Discharge Diagnosis (1) Major depress dis, severe: Status: Acute (2) Cerebral microvascular disease: Status: Acute (3) Opioid use disorder, moderate, in controlled environment: Status: Acute Discharge Plan Discharge Anticipated Discharge Date/Time: 03/23/20 11:44 Patient Disposition: [facility] Referrals: [facility] [Outside] Discharge Medications: New acetaminophen 325 mg Tablet 650 mg PO Q6H PRN (Reason: Headache/Pain Mild Scale (1-3)) Qty: 1 RF: 0 gabapentin 400 mg Capsule 400 mg PO TID Qty: 1 RF: 0 quetiapine 100 mg Tablet 100 mg PO BEDTIME Qty: 1 RF: 0 trazodone 50 mg Tablet 50 mg PO BEDTIME PRN (Reason: Insomnia) Qty: 1 RF: 0 hydroxyzine HCl 25 mg Tablet 25 mg PO BEDTIME PRN (Reason: Anxiety) Qty: 1 RF: 0 fluoxetine 20 mg Capsule 20 mg PO DAILY Qty: 11 RF: 0 clotrimazole 1 % Cream 1 appl topical BID Qty: 1 RF: 0 Continued tizanidine 4 mg Tablet 4 mg PO Q4H PRN (Reason: Muscle Spasm) Qty: 1 RF: 0 omeprazole 40 mg Capsule,Delayed Release(Dr/Ec) 40 mg PO DAILY Qty: 1 RF: 0 quetiapine 50 mg Tablet 50 mg PO TID PRN (Reason: Anxiety) Qty: 1 RF: 0 Discontinued B Complex Tablet Extended Release 1 tab PO DAILY RF: 0 fluoxetine 10 mg Tablet 30 mg PO DAILY RF: 0 quetiapine 200 mg Tablet 200 mg PO BEDTIME RF: 0 clonazepam 1 mg Tablet 1 mg PO TID RF: 0 midodrine 5 mg Tablet 5 mg PO TIDWM RF: 0 gabapentin 800 mg Tablet 800 mg PO TID RF: 0 Discharge Orders: Discharge Order (Routine); Ordered 03/23/20 Ordered By: Krissy Little Diet: advance to your usual diet Activity on Discharge: As tolerated Stand Alone Forms: Community Support Discharge Date/Time: 03/24/20 20:30 Visit Report Forms: Patient Portal Discharge page Care Plan Goals: Stay sober Maintain mood Health Concerns: Opioid use Depressed mood Plan of Treatment: [place] medications Attend scheduled appointments Mental Status Exam Mental Status Exam Patient Appearance: Well Grooomed Patient Orientation: Person, Place, Time and Situation Level of Consciousness: Awake Patient Behavior: Dependent and Passive Mood Description: Calm Affect Description: Calm and Blunted Ability to Follow Directions: Good Speech Pattern: Monotone and Poor Articulation Memory Description: Immediate Impaired Hallucinations: None Delusions: Not Present Thought Process: Intact Thought Content: positive for Intact, negative for Suicidal Ideation and negative for Homicidal Ideation DS: Summary Hospital Course Hospital Course: 59 year old man who was admitted to the unit due to an increase in SI. He is admitted on a CV. Mirza presented to the ER complaining that he was not longer wishing to live and that he had plans to overdose. He claims to have relapsed with heroin and that he has been in pain due to his recent surgery. 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 He has not been taking care of himself, has not been eating and has no been sleeping. He is frustrated with himself for having relapsed and he wants to go to a [facility]. He reports that he has not been taking his medications as prescribed but when he does they are helpful. On arrival to the unit he has been comfortable. He denies SI on the unit. He wishes to re-start medication. He has no signs or symptoms of WD. CIWA score 0 Past Psychiatric History: Multiple hospital stays - approximately 20 Most recent admission to August 2019. Most recent [facility], [place], November 2019 He has no current providers but has been seen by N in the past Hospital Course Mirza was very de-conditioned physically on admission. He had had major surgery only three weeks prior and he did not follow up with care when he was DC. He relapsed with drugs and alcohol. He was prescribed medication that he had been on in the past. However he was significantly sedated. Under his protest, his medications were cut down significantly. He was notably brighter, engaged and cognitively improved. While on the unit he did have a MOCA which showed a cognitive deficit. Plans were made to transfer to a [facility]. He was accepted to [facility] and was pleased to go to this facility. He had been on suboxone for WD but this was tapered and DC prior to his DC since it wa svery sedating for him. Time spent discussing smoking cessation with patient: 3 to 10 minutes Status at Discharge Cognitive/behavioral status at discharge: No SI No HI No confusion Clear about his DC plan Functional status at discharge: independent ambulation Overall status at discharge: patient is back to baseline Time Spent with Patient Time attestation: Total time spent providing and/or coordinating discharge services:
== END 2020-03-24 20:30 | disposition skilled nursing facility (03) | DRG 751 ==
LOC: HO.ED 03-05 14:07 → HO.PM5 03-05 16:58
PROVIDERS: Nurse Practitioner Family; Physician Assistant Medical; Admitting Provider Psychiatry & Neurology Psychiatry; Emergency Provider Emergency Medicine; Visit Provider Psychiatry & Neurology Psychiatry
DX: F32.2 Major depressive disorder, single episode, severe without psychotic features (principal); R45.851 Suicidal ideations; F11.20 Opioid dependence, uncomplicated; I67.89 Other cerebrovascular disease; F17.210 Nicotine dependence, cigarettes, uncomplicated; Z71.6 Tobacco abuse counseling; Z20.828 Contact with and (suspected) exposure to other viral communicable diseases; Z88.5 Allergy status to narcotic agent; Z88.6 Allergy status to analgesic agent; Z79.899 Other long term (current) drug therapy
CPT/HCPCS: 36415; 70450; 71046; 80061; 80307; 80320; 83036; 84484; 85025; 87635; 93005; 97110; 97116; 97162; 99232; 99285; J0573; J0574

== ENCOUNTER 2020-05-02 19:30 | Inpatient (IN) | payer MEDICAID, SELFPAY ==
[2020-05-02] MEDS: LORazepam 2 MG/ML VIAL 4 MG IM (19:30)
[2020-05-02 19:45] LABS: Glucose, Whole Blood 114 mg/dL (60-115)
[2020-05-02] MEDS: levETIRAcetam in NaCl (iso-os) 1,500 MG/100 ML PIGGYBACK 400 MG IV (19:47)
[2020-05-02] MEDS: LORazepam 2 MG/ML VIAL 4 MG IVPUSH ×2 (19:47→22:00)
[2020-05-02 19:48] VITALS: BP 189/92; PULSE 132; RESP 25; TEMP 37.1; O2SAT 2; BMI 30.5
--- NOTE | 2020-05-02 20:12 | ECG_ITS ---
Test Reason : OVERDOSE Blood Pressure : / mmHG Vent. Rate : 116 BPM Atrial Rate : 116 BPM P-R Int : 148 ms QRS Dur : 078 ms QT Int : 350 ms P-R-T Axes : 021 026 037 degrees QTc Int : 486 ms Sinus tachycardia Otherwise normal ECG When compared with ECG of 04-MAR-2020 19:20, Sinus rhythm has replaced Normal sinus rhythm with runs of PAC Referred By: Marleny Horton Electronically Signed By:MACI EDGAR MD
--- NOTE | 2020-05-02 20:13 | CT_ITS ---
EXAMINATION: CT HEAD WITHOUT CONTRAST CLINICAL INFORMATION: Fall. Seizure. COMPARISON: 03/12/2020 TECHNIQUE: Contiguous axial imaging was performed from the skull base to vertex without intravenous administration of contrast. This CT examination was performed using dose optimization techniques as appropriate, variously including the following: *Automated exposure control *Adjustment of mA and/or kV according to patient size (this includes techniques or standardized protocols for targeted exams where dose is matched to indication/reason for exam; i.e. extremities or head) *Use of iterative reconstruction technique DLP: 1351 mGy-cm FINDINGS: Markedly limited study due to extensive motion artifact. No significant intracranial hemorrhage or extra-axial collection is present. Encephalomalacic changes redemonstrated within the bilateral inferior frontal lobes. Extensive chronic white matter small vessel ischemic changes. Ventricular system normal in size and configuration. No evidence of hydrocephalus. The osseous structures and soft tissues are normal. The mastoid air cells and visualized portions of the paranasal sinuses are well aerated. CT/CT head/brain wo con IMPRESSION: Limited exam. No gross acute intracranial pathology is evident.
[2020-05-02] MEDS: 0.9 % Sodium Chloride 1,000 ML 999 ML IVCONT ×2 (20:18→22:29)
[2020-05-02 20:24] VITALS: PULSE 135; RESP 32; TEMP 37.1; O2SAT 96
[2020-05-02 20:24] LABS: Basophils Absolute Auto 0.1 X10*3/uL (0.0-0.2); Basophils Percent Auto 0.6 % (0-2); Eosinophils Absolute Auto 0.2 X10*3/uL (0.0-0.4); Eosinophils Percent Auto 1.9 % (0-4); Hematocrit 41.5 % (42-52); Hemoglobin 13.5 g/dl (14.0-18.0); Imm Gran Abs Auto 0.02 X10*3/uL (0.00-0.03); Imm Gran Pct Auto 0.3 % (0.0-0.4); Lymphocytes Absolute Auto 3.2 X10*3/uL (1.2-4.9); Lymphocytes Percent Auto 40.3 % (20-40); MANUAL DIFF FLAG NO; Mean Corpuscular HGB Conc 32.5 g/dl (31.0-36.0); Mean Corpuscular Hemoglobin 29.6 pg (27.0-33.0); Mean Platelet Volume 10.6 fL (9.4-12.4); Monocytes Absolute Auto 1.4 X10*3/uL (0.1-1.2); Monocytes Percent Auto 17.5 % (2-11); Neutrophils Absolute Auto 3.1 X10*3/uL (2.0-8.3); Neutrophils Percent Auto 39.4 % (45-73); Platelet Count 288 X10*3/uL (160-400); Red Blood Count 4.56 X10*6/uL (4.60-5.80); Red Cell Distribution Width 20.6 % (11.0-16.0)
[2020-05-02] MEDS: ondansetron HCL 4 MG/2 ML VIAL IVPUSH (20:29)
[2020-05-02 20:30] LABS: INTERNATIONAL NORM RATIO 1.1 (0.9-1.1); Prothrombin Time 13.2 SEC (10.8-13.0)
--- NOTE | 2020-05-02 20:32 | ED_ITS ---
HPI - General Adult General Chief complaint: Overdose Stated complaint: Overdose Time Seen by Provider: 05/02/20 19:33 Source: EMS Mode of arrival: EMS Limitations: other ( seizing) History of Present Illness HPI narrative: Patient comes to the emergency room via EMS, patient's family found him unresponsive, they gave 8 mg of Narcan intranasal, then EMS gave 1 more. Patient woke up. Seem confused. According to the family patient had been having previously shaking activity in both upper and lower extremities. Patient is awake but seems very confused, unable to give any history per EMS. On arrival to the emergency room, patient started seizing. complaint: overdose, seizure Related Data Previous Rx's Medication Instructions Recorded acetaminophen 650 mg PO Q6H PRN #1 tab 03/22/20 clotrimazole 1 appl TOPICAL BID #1 g 03/22/20 fluoxetine 20 mg PO DAILY #11 cap 03/22/20 gabapentin 400 mg PO TID #1 cap 03/22/20 hydroxyzine HCl 25 mg PO BEDTIME PRN #1 tab 03/22/20 omeprazole 40 mg PO DAILY #1 cap 03/22/20 quetiapine 50 mg PO TID PRN #1 tab 03/22/20 quetiapine 100 mg PO BEDTIME #1 tab 03/22/20 tizanidine 4 mg PO Q4H PRN #1 tab 03/22/20 trazodone 50 mg PO BEDTIME PRN #1 tab 03/22/20 Allergies Allergy/AdvReac Type Severity Reaction Status Date / Time acetaminophen [From TYLENOL] Allergy Unknown UNK Verified 03/04/20 16:58 codeine [CODEINE] Allergy Unknown RASH Verified 03/04/20 16:58 pneumococcal vaccine Allergy Unknown PARALYSIS Verified 03/04/20 16:58 [PNEUMOCOCCAL VACCINE] tuberculin, purified protein Allergy Unknown RASH Verified 03/04/20 16:58 deriva [TUBERCULIN, PURIFIED PROTEIN DERIVA] venlafaxine [From EFFEXOR] AdvReac Unknown UNKNOWN Verified 03/04/20 16:58 Review of Systems Review of Systems: Yes Unobtainable due to mental condition PMFSH Past Medical History Medical History Anxiety Depression Diabetes HTN (hypertension) Suicidal ideations Social History Social History Household Members: Family Housing: House Alcohol intake: unknown Smoking Status: Unknown if ever smoked Tobacco Type: Cigarette Cigarettes Per Day: 3 Years Smoked: 30 Second Hand Smoke Exposure: Yes Use of substances other than those prescribed or required for medical reasons: Yes Substance Use Type: Heroin Substance Use Frequency: Chronic Longstanding Last Used Substance: Just Prior to Admission Advance Directives: No Advance Directives Information Provided: Yes service: Yes ([employer]) Sexual orientation: Straight/Heterosexual Physical Exam Vital Signs: Vital Signs: Last Vital Signs Temp 100 F 05/02/20 22:55 Pulse 135 H 05/02/20 22:55 Resp 34 H 05/02/20 22:55 BP 100/82 05/02/20 22:55 Pulse Ox 99 05/02/20 22:55 Body Mass Index 30.5 Appearance: on arrival, patient actively seizing, patient out postictal, her seizing. Awake but somnolent, unable to give any history Eyes: Pupils equal, round and reactive to light. ENT: Pharynx normal. Neck: Normal inspection. Neck supple. No lymph nodes noted. No crepitus CVS: tachycardic, normal S1-S2 Respiratory: No respiratory distress. Breath sounds normal. No Wheezing. No rales Abdomen: Soft and nontender. No rigidity. No distention. good BS x4 Skin: patient has AU shaped abrasion to the left lower extremity Extremities: see above Neuro: patient actively seizing while patient was being addressed, multiple bundles of heroin were found on him Course Course Course Narrative: patient's seizure stopped after 4 mg of Ativan IM which were given prior to getting IV access, then 8 additional mg of Ativan IV were given, and 1500 mg of Keppra. Patient no longer seizing, patient awake, somnolent, postictal. No fever. Patient has had 5 episodes of watery diarrhea. rectal tube was inserted. head CT does not show any acute pathology. small patient was seizing, it was noted that patient has a laceration to the left lower extremity, to prevent further blood loss, the flap was stapled Sepsis is not suspected, lactic acid elevation secondary to prolonged seizure activity I discussed the patient with the hospitalist, patient being admitted Procedures Laceration Laceration 1: Site: lower extremity Size (cm): 4 Description: flap Depth: simple, single layer Number of sutures: 8 Medical Decision Making Lab Data Result diagrams: 05/02/20 20:17 05/02/20 20:17 Labs: Lab Results 05/02/20 05/02/20 05/02/20 Range/Units 19:41 20:17 20:17 WBC 8.0 (4.8-10.8) X10*3/uL RBC 4.56 L (4.60-5.80) X10*6/uL Hgb 13.5 L (14.0-18.0) g/dl Hct 41.5 L (42-52) % MCV 91.0 (80-98) fL MCH 29.6 (27.0-33.0) pg MCHC 32.5 (31.0-36.0) g/dl RDW 20.6 H (11.0-16.0) % Plt Count 288 D (160-400) X10*3/uL MPV 10.6 (9.4-12.4) fL Immature Gran % (Auto) 0.3 (0.0-0.4) % Neut % (Auto) 39.4 L (45-73) % Lymph % (Auto) 40.3 H (20-40) % [place] % (Auto) 17.5 H (2-11) % Eos % (Auto) 1.9 (0-4) % Baso % (Auto) 0.6 (0-2) % Lymph # (Auto) 3.2 (1.2-4.9) X10*3/uL [place] # (Auto) 1.4 H (0.1-1.2) X10*3/uL Eos # (Auto) 0.2 (0.0-0.4) X10*3/uL Baso # (Auto) 0.1 (0.0-0.2) X10*3/uL Abs Immat Gran (auto) 0.02 (0.00-0.03) X10*3/uL Absolute Neuts (auto) 3.1 (2.0-8.3) X10*3/uL Absolute Nucleated RBC 0.000 (0.0-0.012) X10*3/uL Nucleated RBC % (auto) 0.0 (0.0-0.2) /100WBC PT (10.8-13.0) SEC INR (0.9-1.1) Sodium 143 (135-145) mmol/L Potassium 4.0 (3.3-5.1) mmol/l Chloride 105 (96-108) mmol/L Carbon Dioxide 18 L (22-29) mmol/L Anion Gap 24 H (12-20) BUN 17 H D (9-16) mg/dL Creatinine 0.75 (0.5-1.4) mg/dL Estim Creat Clear Calc 129.4 Estimated GFR > 60 POC Glucose 114 (60-115) mg/dL Random Glucose 101 (60-115) mg/dL Lactic Acid (0.5-2.0) mmol/L Calcium 9.5 D (8.4-10.2) mg/dL Magnesium 2.0 (1.6-2.6) mg/dL Total Bilirubin 0.7 (0.0-1.0) mg/dL Direct Bilirubin 0.5 (0.0-0.5) mg/dL AST 90 H (5-37) U/L ALT 57 H (0-40) U/L Alkaline Phosphatase 202 H (39-117) U/L Troponin I High Sens (<3.5-35.0) ng/L B-Natriuretic Peptide (<100) pg/mL Total Protein 8.3 H (6.5-8.0) g/dL Albumin 3.6 (3.5-5.0) g/dL Lipase 60 (8-78) U/L Urine Color Urine Appearance Urine pH (5.0-8.0) Ur Specific [place] (1.005-1.025) Urine Protein (NEG-TRACE) MG/DL Urine Glucose (UA) (NEG) MG/DL Urine Ketones (NEG) MG/DL Urine Blood (NEG) Urine Nitrite (NEG) Ur Leukocyte Esterase (NEG) Urine RBC (0) /HPF Urine WBC (0-4) /HPF Ur Squamous Epith Cells /LPF Urine Bacteria /LPF Urine Mucus /LPF Urine Opiates Screen (Not Detect) Ur Barbiturates Screen (Not Detect) Ur Phencyclidine Scrn (Not Detect) Ur Amphetamines Screen (Not Detect) U Benzodiazepines Scrn (Not Detect) Urine Cocaine Screen (Not Detect) U Marijuana (THC) Screen (Not Detect) Ethyl Alcohol mg/dL 1205/02/20 05/02/20 Range/Units 20:17 20:17 20:17 WBC (4.8-10.8) X10*3/uL RBC (4.60-5.80) X10*6/uL Hgb (14.0-18.0) g/dl Hct (42-52) % MCV (80-98) fL MCH (27.0-33.0) pg MCHC (31.0-36.0) g/dl RDW (11.0-16.0) % Plt Count (160-400) X10*3/uL MPV (9.4-12.4) fL Immature Gran % (Auto) (0.0-0.4) % Neut % (Auto) (45-73) % Lymph % (Auto) (20-40) % [place] % (Auto) (2-11) % Eos % (Auto) (0-4) % Baso % (Auto) (0-2) % Lymph # (Auto) (1.2-4.9) X10*3/uL [place] # (Auto) (0.1-1.2) X10*3/uL Eos # (Auto) (0.0-0.4) X10*3/uL Baso # (Auto) (0.0-0.2) X10*3/uL Abs Immat Gran (auto) (0.00-0.03) X10*3/uL Absolute Neuts (auto) (2.0-8.3) X10*3/uL Absolute Nucleated RBC (0.0-0.012) X10*3/uL Nucleated RBC % (auto) (0.0-0.2) /100WBC PT 13.2 H (10.8-13.0) SEC INR 1.1 (0.9-1.1) Sodium (135-145) mmol/L Potassium (3.3-5.1) mmol/l Chloride (96-108) mmol/L Carbon Dioxide (22-29) mmol/L Anion Gap (12-20) BUN (9-16) mg/dL Creatinine (0.5-1.4) mg/dL Estim Creat Clear Calc Estimated GFR POC Glucose (60-115) mg/dL Random Glucose (60-115) mg/dL Lactic Acid (0.5-2.0) mmol/L Calcium (8.4-10.2) mg/dL Magnesium Cancelled (1.6-2.6) mg/dL Total Bilirubin (0.0-1.0) mg/dL Direct Bilirubin (0.0-0.5) mg/dL AST (5-37) U/L ALT (0-40) U/L Alkaline Phosphatase (39-117) U/L Troponin I High Sens 4.2 (<3.5-35.0) ng/L B-Natriuretic Peptide 210 H (<100) pg/mL Total Protein (6.5-8.0) g/dL Albumin (3.5-5.0) g/dL Lipase Cancelled (8-78) U/L Urine Color Urine Appearance Urine pH (5.0-8.0) Ur Specific [place] (1.005-1.025) Urine Protein (NEG-TRACE) MG/DL Urine Glucose (UA) (NEG) MG/DL Urine Ketones (NEG) MG/DL Urine Blood (NEG) Urine Nitrite (NEG) Ur Leukocyte Esterase (NEG) Urine RBC (0) /HPF Urine WBC (0-4) /HPF Ur Squamous Epith Cells /LPF Urine Bacteria /LPF Urine Mucus /LPF Urine Opiates Screen (Not Detect) Ur Barbiturates Screen (Not Detect) Ur Phencyclidine Scrn (Not Detect) Ur Amphetamines Screen (Not Detect) U Benzodiazepines Scrn (Not Detect) Urine Cocaine Screen (Not Detect) U Marijuana (THC) Screen (Not Detect) Ethyl Alcohol mg/dL 05/02/20 05/02/20 05/02/20 Range/Units 20:17 20:39 20:39 WBC (4.8-10.8) X10*3/uL RBC (4.60-5.80) X10*6/uL Hgb (14.0-18.0) g/dl Hct (42-52) % MCV (80-98) fL MCH (27.0-33.0) pg MCHC (31.0-36.0) g/dl RDW (11.0-16.0) % Plt Count (160-400) X10*3/uL MPV (9.4-12.4) fL Immature Gran % (Auto) (0.0-0.4) % Neut % (Auto) (45-73) % Lymph % (Auto) (20-40) % [place] % (Auto) (2-11) % Eos % (Auto) (0-4) % Baso % (Auto) (0-2) % Lymph # (Auto) (1.2-4.9) X10*3/uL [place] # (Auto) (0.1-1.2) X10*3/uL Eos # (Auto) (0.0-0.4) X10*3/uL Baso # (Auto) (0.0-0.2) X10*3/uL Abs Immat Gran (auto) (0.00-0.03) X10*3/uL Absolute Neuts (auto) (2.0-8.3) X10*3/uL Absolute Nucleated RBC (0.0-0.012) X10*3/uL Nucleated RBC % (auto) (0.0-0.2) /100WBC PT (10.8-13.0) SEC INR (0.9-1.1) Sodium (135-145) mmol/L Potassium (3.3-5.1) mmol/l Chloride (96-108) mmol/L Carbon Dioxide (22-29) mmol/L Anion Gap (12-20) BUN (9-16) mg/dL Creatinine (0.5-1.4) mg/dL Estim Creat Clear Calc Estimated GFR POC Glucose (60-115) mg/dL Random Glucose (60-115) mg/dL Lactic Acid 8.7 H* (0.5-2.0) mmol/L Calcium (8.4-10.2) mg/dL Magnesium (1.6-2.6) mg/dL Total Bilirubin (0.0-1.0) mg/dL Direct Bilirubin (0.0-0.5) mg/dL AST (5-37) U/L ALT (0-40) U/L Alkaline Phosphatase (39-117) U/L Troponin I High Sens (<3.5-35.0) ng/L B-Natriuretic Peptide (<100) pg/mL Total Protein (6.5-8.0) g/dL Albumin (3.5-5.0) g/dL Lipase (8-78) U/L Urine Color YELLOW Urine Appearance CLEAR Urine pH 5.5 (5.0-8.0) Ur Specific [place] >= 1.030 H (1.005-1.025) Urine Protein NEG (NEG-TRACE) MG/DL Urine Glucose (UA) NEG (NEG) MG/DL Urine Ketones NEG (NEG) MG/DL Urine Blood TRACE (NEG) Urine Nitrite NEG (NEG) Ur Leukocyte Esterase NEG (NEG) Urine RBC 1-4 (0) /HPF Urine WBC 0 (0-4) /HPF Ur Squamous Epith Cells NONE /LPF Urine Bacteria NONE /LPF Urine Mucus TRACE /LPF Urine Opiates Screen (Not Detect) Ur Barbiturates Screen (Not Detect) Ur Phencyclidine Scrn (Not Detect) Ur Amphetamines Screen (Not Detect) U Benzodiazepines Scrn (Not Detect) Urine Cocaine Screen (Not Detect) U Marijuana (THC) Screen (Not Detect) Ethyl Alcohol < 10 mg/dL 05/02/20 Range/Units 20:39 WBC (4.8-10.8) X10*3/uL RBC (4.60-5.80) X10*6/uL Hgb (14.0-18.0) g/dl Hct (42-52) % MCV (80-98) fL MCH (27.0-33.0) pg MCHC (31.0-36.0) g/dl RDW (11.0-16.0) % Plt Count (160-400) X10*3/uL MPV (9.4-12.4) fL Immature Gran % (Auto) (0.0-0.4) % Neut % (Auto) (45-73) % Lymph % (Auto) (20-40) % [place] % (Auto) (2-11) % Eos % (Auto) (0-4) % Baso % (Auto) (0-2) % Lymph # (Auto) (1.2-4.9) X10*3/uL [place] # (Auto) (0.1-1.2) X10*3/uL Eos # (Auto) (0.0-0.4) X10*3/uL Baso # (Auto) (0.0-0.2) X10*3/uL Abs Immat Gran (auto) (0.00-0.03) X10*3/uL Absolute Neuts (auto) (2.0-8.3) X10*3/uL Absolute Nucleated RBC (0.0-0.012) X10*3/uL Nucleated RBC % (auto) (0.0-0.2) /100WBC PT (10.8-13.0) SEC INR (0.9-1.1) Sodium (135-145) mmol/L Potassium (3.3-5.1) mmol/l Chloride (96-108) mmol/L Carbon Dioxide (22-29) mmol/L Anion Gap (12-20) BUN (9-16) mg/dL Creatinine (0.5-1.4) mg/dL Estim Creat Clear Calc Estimated GFR POC Glucose (60-115) mg/dL Random Glucose (60-115) mg/dL Lactic Acid (0.5-2.0) mmol/L Calcium (8.4-10.2) mg/dL Magnesium (1.6-2.6) mg/dL Total Bilirubin (0.0-1.0) mg/dL Direct Bilirubin (0.0-0.5) mg/dL AST (5-37) U/L ALT (0-40) U/L Alkaline Phosphatase (39-117) U/L Troponin I High Sens (<3.5-35.0) ng/L B-Natriuretic Peptide (<100) pg/mL Total Protein (6.5-8.0) g/dL Albumin (3.5-5.0) g/dL Lipase (8-78) U/L Urine Color Urine Appearance Urine pH (5.0-8.0) Ur Specific [place] (1.005-1.025) Urine Protein (NEG-TRACE) MG/DL Urine Glucose (UA) (NEG) MG/DL Urine Ketones (NEG) MG/DL Urine Blood (NEG) Urine Nitrite (NEG) Ur Leukocyte Esterase (NEG) Urine RBC (0) /HPF Urine WBC (0-4) /HPF Ur Squamous Epith Cells /LPF Urine Bacteria /LPF Urine Mucus /LPF Urine Opiates Screen POSITIVE H (Not Detect) Ur Barbiturates Screen Not Detected (Not Detect) Ur Phencyclidine Scrn Not Detected (Not Detect) Ur Amphetamines Screen Not Detected (Not Detect) U Benzodiazepines Scrn Not Detected (Not Detect) Urine Cocaine Screen Not Detected (Not Detect) U Marijuana (THC) Screen Not Detected (Not Detect) Ethyl Alcohol mg/dL Imaging Data CT scan - head: Radiologist's impression: Markedly limited study due to extensive motion artifact. No significant intracranial hemorrhage or extra-axial collection is present. Encephalomalacic changes redemonstrated within the bilateral inferior frontal lobes. Extensive chronic white matter small vessel ischemic changes. Ventricular system normal in size and configuration. No evidence of hydrocephalus. The osseous structures and soft tissues are normal. The mastoid air cells and visualized portions of the paranasal sinuses are well aerated. CT/CT head/brain wo con IMPRESSION: Limited exam. No gross acute intracranial pathology is evident. ECG Data Attestation: I personally reviewed and interpreted this ECG as follows: ( sinus rhythm, heart rate 116, no ST segment depressions or elevations, no T-wave inversions) Critical Care Time Critical Care Time Total Critical Care Time: 60 Discharge Plan Discharge Clinical Impression: Seizure Drug overdose Qualifiers: Encounter type: initial encounter Injury intent: undetermined intent Qualified Code(s): T50.904A - Poisoning by unspecified drugs, medicaments and biological substances, undetermined, initial encounter Patient Disposition: Admitted As Inpatient
[2020-05-02 20:48] LABS: Ethanol < 10 mg/dL
[2020-05-02 20:58] LABS: Glucose Urine UA NEG (NEG); Leukocyte Esterase Urine NEG (NEG); Nitrite Urine NEG (NEG); PH 5.5 (5.0-8.0); Specific Gravity - Urine >= 1.030 (1.005-1.025); Urine Blood TRACE (NEG); Urine Ketones NEG (NEG); Urine Protein NEG (NEG-TRACE)
[2020-05-02 20:59] LABS: Appearance Urine CLEAR; Color Urine YELLOW
[2020-05-02 21:01] LABS: Alanine Aminotransferase 57 U/L (0-40); Albumin Level 3.6 g/dL (3.5-5.0); Alkaline Phosphatase 202 U/L (39-117); Anion Gap 24 (12-20); Aspartate Amino Transferase 90 U/L (5-37); Bilirubin Direct 0.5 mg/dL (0.0-0.5); Bilirubin Total 0.7 mg/dL (0.0-1.0); Blood Urea Nitrogen 17 mg/dL (9-16); Calcium 9.5 mg/dL (8.4-10.2); Carbon Dioxide 18 mmol/L (22-29); Chloride 105 mmol/L (96-108); Creatinine Clr Calc Pharmacy 129.4; Estimated Glomerular Filt Rate > 60; Glucose Random 101 mg/dL (60-115); Lipase 60 U/L (8-78); Sodium 143 mmol/L (135-145); Total Protein 8.3 g/dL (6.5-8.0)
[2020-05-02 21:03] LABS: Mucus Urine TRACE /LPF; WBC Urine 0 /HPF (0-4)
[2020-05-02 21:21] LABS: Amphetamine Screen Urine Not Detected (Not Detect); Barbiturates, Urine Not Detected (Not Detect); Benzodiazepines Screen Urine Not Detected (Not Detect); Cannabinoid Screen Urine Not Detected (Not Detect); Cocaine Screen Urine Not Detected (Not Detect); Opiate Screen Urine POSITIVE (Not Detect); Phencyclidine Screen Urine Not Detected (Not Detect)
[2020-05-02 21:22] LABS: Lactic Acid 8.7 mmol/L (0.5-2.0)
[2020-05-02 21:26] VITALS: BP 151/111; PULSE 117; RESP 18; O2SAT 97
--- NOTE | 2020-05-02 21:26 | PC.NURSE ---
Late entry: Initial dose of 4mg ativan pulled in pyxis under 911 due to pt actively seizing and not registered.
--- NOTE | 2020-05-02 21:26 | PC.NURSE ---
PATIENT REMAINS TACHYCARDIC ON MONITOR, RATE HAS IMPROVED. HAS BEEN INCONTINENT OF LIQUID STOOL X5. DR GILES AWARE. NOT TRACKING STAFF. DOES NOT RESPOND TO VERBAL STIMULI.
[2020-05-02 22:10] VITALS: PULSE 116; RESP 14; O2SAT 98
[2020-05-02 22:32] LABS: B Type Natriuretic Peptide 210 pg/mL (<100); Troponin-I High Sensitivity 4.2 ng/L (<3.5-35.0)
[2020-05-02 22:55] VITALS: BP 100/82; PULSE 135; RESP 34; TEMP 37.7; O2SAT 99
[2020-05-02 22:55] LABS: Reflex Lactate? Lactic Acid Added
[2020-05-02 23:12] LABS: COVID-19 Test Negative (Negative)
--- NOTE | 2020-05-02 23:12 | PC.NURSE ---
LINENS CHANGED. INCONTINENT OF URINE. YELLOW LIQUID STOOL IN RECTAL TUBE.
[2020-05-02 23:13] VITALS: PULSE 128; RESP 34
[2020-05-02 23:34] LABS: ~Lactic Acid-LAB USE ONLY 2.1 mmol/L (0.5-2.0)
--- NOTE | 2020-05-02 23:39 | PC.NURSE ---
CALLED TO GIVE REPORT TO [facility]. NURSE WILL CALL BACK FOR REPORT.
--- NOTE | 2020-05-02 23:45 | PC.NURSE ---
NURSE TO NURSE GIVEN TO LUISANA ARCE ON [facility].
[2020-05-03] VITALS (7 sets, daily range): BP systolic 112–140; BP diastolic 58–95; PULSE 70–128; RESP 18–20; TEMP 36.6–37; O2SAT 94–99; BMI 30.5
[2020-05-03 01:08] LABS: Reflex Lactate? 2 Y
[2020-05-03] MEDS: 0.9 % Sodium Chloride Flush 3 ML SYRINGE IVFLUSH ×4 (01:11→20:44)
[2020-05-03] MEDS: Enoxaparin Sodium 40 MG/0.4 ML SYRINGE SUBCUT ×2 (01:11→23:18)
[2020-05-03 01:48] LABS: ~Lactic Acid-LAB USE ONLY 0.9 mmol/L (0.5-2.0)
--- NOTE | 2020-05-03 05:45 | PM.IMHP ---
History of Present Illness Date of Service: 05/02/20 Chief Complaint: seizures post overdose This is a 59-year-old male with a past medical history of drug overdose, seizure activity, major depression disorder, cerebral microvascular disease, who presents to the hospital after being found by family overdosed. Patient currently postictal and completely lethargic and unable to give any history. History is obtained mostly from ED physician who got the history from the EMS. It appears that patient was found by his family on the ground, 8 mg of Narcan were given before the arrival of EMS will also give the patient another 4 mg of Narcan. On arrival to the ED patient started seizing and received total of 4 mg IM Ativan, 4 mg of IV Ativan as well as 1500 mg of Keppra. Patient currently completely postictal and unable to give history. He has history of overdose in the past. on arrival to the ED heart rate of 132, respiratory rate of 25, blood pressure 189/92, satting 100% on room air. Labs are significant for lactic acid of 8.7, which normalized after few hours, AST of 90, ALT of 57, alk-phos of 2 2, BNP of 210, negative UA. Positive UDS for opioids, head CT negative for any abnormality Unable to obtain any past medical history as patient is lethargic at this time but has history of opiate abuse, drug overdose,seizure, major depressive disorder, cerebral microvascular disease Review of Systems Review of Systems: Yes Unobtainable due to mental condition [facility] Medical History Anxiety Depression Diabetes HTN (hypertension) Suicidal ideations Social History Household Members: Unknown / Unable to assess Housing: Unknown / Unable to assess Do you presently have visiting nurse or other home services: No Alcohol intake: unknown Smoking Status: Unknown if ever smoked Tobacco Type: Cigarette Cigarettes Per Day: 3 Years Smoked: 30 Second Hand Smoke Exposure: No Use of substances other than those prescribed or required for medical reasons: Unknown Substance Use Type: Opiates Substance Use Frequency: Chronic Longstanding Last Used Substance: Just Prior to Admission Have you been hit, kicked, punched, or otherwise hurt by someone within the past year? If so, by whom?: No Advance Directives: No Advance Directives Information Provided: Yes Recently lost weight without trying: Unsure service: Yes ([employer]) Sexual orientation: Straight/Heterosexual Meds Allergies Allergy/AdvReac Type Severity Reaction Status Date / Time acetaminophen [From TYLENOL] Allergy Unknown UNK Verified 03/04/20 16:58 codeine [CODEINE] Allergy Unknown RASH Verified 03/04/20 16:58 pneumococcal vaccine Allergy Unknown PARALYSIS Verified 03/04/20 16:58 [PNEUMOCOCCAL VACCINE] tuberculin, purified protein Allergy Unknown RASH Verified 03/04/20 16:58 deriva [TUBERCULIN, PURIFIED PROTEIN DERIVA] venlafaxine [From EFFEXOR] AdvReac Unknown UNKNOWN Verified 03/04/20 16:58 Physical Exam Vital Signs and Narrative: Vital Signs: Last Vital Signs Temp 97.9 F 05/03/20 04:00 Pulse 128 H 05/03/20 04:00 Resp 18 05/03/20 04:00 BP 140/92 H 05/03/20 04:00 Pulse Ox 98 05/03/20 04:00 Body Mass Index 30.5 Const: Other: abtunded Eyes: Pupils: Equal, round and reactive pupils present Resp: Effort & Inspection: normal respiratory effort and able to speak in complete sentences Auscultation: clear to auscultation bilaterally Cardio: Other: tachycardic Rhythm: regular rhythm GI: Palpation (GI): Soft to palpation Auscultation: normal bowel sounds Skin: General skin exam: no rashes or lesions noted Neuro: Cranial nerves: Yes Equal, round and reactive pupils present Cognition (Neuro): normal cognition Extrem: General: Yes normal to inspection and Yes no pedal edema Results Labs CBC and Chem 7: 05/02/20 20:17 05/02/20 20:17 Labs: Laboratory Results - last 24 hr 05/02/20 05/02/20 05/02/20 19:41 20:17 20:17 MCV 91.0 MCH 29.6 MCHC 32.5 RDW 20.6 H Plt Count 288 D MPV 10.6 Immature Gran % (Auto) 0.3 Neut % (Auto) 39.4 L Lymph % (Auto) 40.3 H [place] % (Auto) 17.5 H Eos % (Auto) 1.9 Baso % (Auto) 0.6 Lymph # (Auto) 3.2 [place] # (Auto) 1.4 H Eos # (Auto) 0.2 Baso # (Auto) 0.1 Abs Immat Gran (auto) 0.02 Absolute Neuts (auto) 3.1 Absolute Nucleated RBC 0.000 Nucleated RBC % (auto) 0.0 PT INR Anion Gap 24 H Estim Creat Clear Calc 129.4 Estimated GFR > 60 POC Glucose 114 Random Glucose 101 Lactic Acid Lactic Acid Fup @ 2Hr Lactic Acid Fup @ 4Hr Calcium 9.5 D Magnesium 2.0 Total Bilirubin 0.7 Direct Bilirubin 0.5 AST 90 H ALT 57 H Alkaline Phosphatase 202 H Troponin I High Sens B-Natriuretic Peptide Total Protein 8.3 H Albumin 3.6 Lipase 60 Urine Color Urine Appearance Urine pH Ur Specific [place] Urine Protein Urine Glucose (UA) Urine Ketones Urine Blood Urine Nitrite Ur Leukocyte Esterase Urine RBC Urine WBC Ur Squamous Epith Cells Urine Bacteria Urine Mucus Urine Opiates Screen Ur Barbiturates Screen Ur Phencyclidine Scrn Ur Amphetamines Screen U Benzodiazepines Scrn Urine Cocaine Screen U Marijuana (THC) Screen Ethyl Alcohol COVID-19 (MARISELA) COVID-Vadio 05/02/20 05/02/20 05/02/20 20:17 20:17 20:17 MCV MCH MCHC RDW Plt Count MPV Immature Gran % (Auto) Neut % (Auto) Lymph % (Auto) [place] % (Auto) Eos % (Auto) Baso % (Auto) Lymph # (Auto) [place] # (Auto) Eos # (Auto) Baso # (Auto) Abs Immat Gran (auto) Absolute Neuts (auto) Absolute Nucleated RBC Nucleated RBC % (auto) PT 13.2 H INR 1.1 Anion Gap Estim Creat Clear Calc Estimated GFR POC Glucose Random Glucose Lactic Acid Lactic Acid Fup @ 2Hr Lactic Acid Fup @ 4Hr Calcium Magnesium Cancelled Total Bilirubin Direct Bilirubin AST ALT Alkaline Phosphatase Troponin I High Sens 4.2 B-Natriuretic Peptide 210 H Total Protein Albumin Lipase Cancelled Urine Color Urine Appearance Urine pH Ur Specific [place] Urine Protein Urine Glucose (UA) Urine Ketones Urine Blood Urine Nitrite Ur Leukocyte Esterase Urine RBC Urine WBC Ur Squamous Epith Cells Urine Bacteria Urine Mucus Urine Opiates Screen Ur Barbiturates Screen Ur Phencyclidine Scrn Ur Amphetamines Screen U Benzodiazepines Scrn Urine Cocaine Screen U Marijuana (THC) Screen Ethyl Alcohol COVID-19 (MARISELA) COVIDCrowdtap 05/02/20 05/02/20 05/02/20 20:17 20:39 20:39 MCV MCH MCHC RDW Plt Count MPV Immature Gran % (Auto) Neut % (Auto) Lymph % (Auto) [place] % (Auto) Eos % (Auto) Baso % (Auto) Lymph # (Auto) [place] # (Auto) Eos # (Auto) Baso # (Auto) Abs Immat Gran (auto) Absolute Neuts (auto) Absolute Nucleated RBC Nucleated RBC % (auto) PT INR Anion Gap Estim Creat Clear Calc Estimated GFR POC Glucose Random Glucose Lactic Acid 8.7 H* Lactic Acid Fup @ 2Hr Lactic Acid Fup @ 4Hr Calcium Magnesium Total Bilirubin Direct Bilirubin AST ALT Alkaline Phosphatase Troponin I High Sens B-Natriuretic Peptide Total Protein Albumin Lipase Urine Color YELLOW Urine Appearance CLEAR Urine pH 5.5 Ur Specific [place] >= 1.030 H Urine Protein NEG Urine Glucose (UA) NEG Urine Ketones NEG Urine Blood TRACE Urine Nitrite NEG Ur Leukocyte Esterase NEG Urine RBC 1-4 Urine WBC 0 Ur Squamous Epith Cells NONE Urine Bacteria NONE Urine Mucus TRACE Urine Opiates Screen Ur Barbiturates Screen Ur Phencyclidine Scrn Ur Amphetamines Screen U Benzodiazepines Scrn Urine Cocaine Screen U Marijuana (THC) Screen Ethyl Alcohol < 10 COVID-19 (MARSIELA) COVID-19 Clin Com 05/02/20 05/02/20 05/02/20 20:39 22:53 23:05 MCV MCH MCHC RDW Plt Count MPV Immature Gran % (Auto) Neut % (Auto) Lymph % (Auto) [place] % (Auto) Eos % (Auto) Baso % (Auto) Lymph # (Auto) [place] # (Auto) Eos # (Auto) Baso # (Auto) Abs Immat Gran (auto) Absolute Neuts (auto) Absolute Nucleated RBC Nucleated RBC % (auto) PT INR Anion Gap Estim Creat Clear Calc Estimated GFR POC Glucose Random Glucose Lactic Acid Lactic Acid Fup @ 2Hr 2.1 H* Lactic Acid Fup @ 4Hr Calcium Magnesium Total Bilirubin Direct Bilirubin AST ALT Alkaline Phosphatase Troponin I High Sens B-Natriuretic Peptide Total Protein Albumin Lipase Urine Color Urine Appearance Urine pH Ur Specific [place] Urine Protein Urine Glucose (UA) Urine Ketones Urine Blood Urine Nitrite Ur Leukocyte Esterase Urine RBC Urine WBC Ur Squamous Epith Cells Urine Bacteria Urine Mucus Urine Opiates Screen POSITIVE H Ur Barbiturates Screen Not Detected Ur Phencyclidine Scrn Not Detected Ur Amphetamines Screen Not Detected U Benzodiazepines Scrn Not Detected Urine Cocaine Screen Not Detected U Marijuana (THC) Screen Not Detected Ethyl Alcohol COVID-19 (MARISELA) Negative COVID-19 Clin Com See Note 05/03/20 01:20 MCV MCH MCHC RDW Plt Count MPV Immature Gran % (Auto) Neut % (Auto) Lymph % (Auto) [place] % (Auto) Eos % (Auto) Baso % (Auto) Lymph # (Auto) [place] # (Auto) Eos # (Auto) Baso # (Auto) Abs Immat Gran (auto) Absolute Neuts (auto) Absolute Nucleated RBC Nucleated RBC % (auto) PT INR Anion Gap Estim Creat Clear Calc Estimated GFR POC Glucose Random Glucose Lactic Acid Lactic Acid Fup @ 2Hr Lactic Acid Fup @ 4Hr 0.9 Calcium Magnesium Total Bilirubin Direct Bilirubin AST ALT Alkaline Phosphatase Troponin I High Sens B-Natriuretic Peptide Total Protein Albumin Lipase Urine Color Urine Appearance Urine pH Ur Specific [place] Urine Protein Urine Glucose (UA) Urine Ketones Urine Blood Urine Nitrite Ur Leukocyte Esterase Urine RBC Urine WBC Ur Squamous Epith Cells Urine Bacteria Urine Mucus Urine Opiates Screen Ur Barbiturates Screen Ur Phencyclidine Scrn Ur Amphetamines Screen U Benzodiazepines Scrn Urine Cocaine Screen U Marijuana (THC) Screen Ethyl Alcohol COVID-19 (MARISELA) COVID-19 Clin Com Imaging Radiologist's Impressions: Impressions Head CT 05/02/20 20:13 IMPRESSION: Limited exam. No gross acute intracranial pathology is evident. Assessment and Plan (1) Drug overdose: Qualifiers: Encounter type: initial encounter Injury intent: undetermined intent Qualified Code(s): T50.904A - Poisoning by unspecified drugs, medicaments and biological substances, undetermined, initial encounter Status: Acute (2) Seizure: Status: Acute (3) Major depress dis, severe: Status: Acute (4) Opioid use disorder, moderate, in controlled environment: Status: Acute this is a 5-year-old male with past medical history as mentioned above who presents to hospital after found in overdose. Developed seizure activity in the ED. # Drug overdose - was given about 12 mg of Narcan to resuscitate - patient most likely developed withdrawal seizures as a result - his history of drug overdose on opioids plan: - Will start him on clonidine, hydroxyzine and if interested patient can start on Suboxone # seizure - most likely as a result of opioid withdrawal, patient was given 12 mg of Narcan, subsequently developed seizures - not on any seizure medications at baseline - received total of 8 mg of Ativan as well as 1500 mg of Keppra plan: - will hold off on starting him on antiseizure medication - supportive measures # major depressive disorder - continue quetiapine, fluoxetine DVT prophylaxis: Lovenox
[2020-05-03 05:59] LABS: MANUAL DIFF FLAG NO
[2020-05-03 06:02] LABS: Basophils Percent Auto 0.3 % (0-2); Hematocrit 32.7 % (42-52); Imm Gran Abs Auto 0.03 X10*3/uL (0.00-0.03); Imm Gran Pct Auto 0.3 % (0.0-0.4); Lymphocytes Absolute Auto 1.9 X10*3/uL (1.2-4.9); Mean Corpuscular HGB Conc 33.6 g/dl (31.0-36.0); Mean Corpuscular Hemoglobin 29.5 pg (27.0-33.0); Mean Corpuscular Volume 87.7 fL (80-98); Monocytes Absolute Auto 0.8 X10*3/uL (0.1-1.2); Monocytes Percent Auto 8.1 % (2-11); Neutrophils Absolute Auto 7.3 X10*3/uL (2.0-8.3); Neutrophils Percent Auto 72.3 % (45-73); Platelet Count 261 X10*3/uL (160-400); Red Blood Count 3.73 X10*6/uL (4.60-5.80); Red Cell Distribution Width 20.1 % (11.0-16.0); White Blood Count 10.1 X10*3/uL (4.8-10.8)
[2020-05-03 06:51] LABS: Anion Gap 13 (12-20); Blood Urea Nitrogen 14 mg/dL (9-16); Calcium 8.1 mg/dL (8.4-10.2); Carbon Dioxide 25 mmol/L (22-29); Chloride 108 mmol/L (96-108); Creatinine Clr Calc Pharmacy 156.6; Estimated Glomerular Filt Rate > 60; Glucose Random 99 mg/dL (60-115); Potassium 4.1 mmol/l (3.3-5.1); Sodium 142 mmol/L (135-145)
--- NOTE | 2020-05-03 08:43 | MHC.CM.PN ---
at this time pt is sedated, unresponsive and unable to participate in interview. per chart review : pt lives alone . the remainder of the facts are unclear. for this reason dc planning is deferred to a future time. pt would likely benefit from a care team consult. cm to cont. to follow.
--- NOTE | 2020-05-03 12:51 | HO.PM.IMPN ---
Subjective Subjective Date of Service: 05/03/20 Interval History: lethargic Cardiovascular Cardiovascular: Reports no additional cardiovascular complaints Gastrointestinal Gastrointestinal: Reports no additional gastrointestinal complaints Physical Exam Vital Signs: Vital Signs: Last Vital Signs Temp 98.6 F 05/03/20 12:00 Pulse 75 05/03/20 12:00 Resp 18 05/03/20 12:00 BP 120/59 L 05/03/20 12:00 Pulse Ox 97 05/03/20 12:00 Body Mass Index 30.5 General: lethargic Resp: CTA bilateral CVS: S1,S2,RRR GI: soft, non tender, non distended Neuro: motor grossly intact Psych: impaired Objective Data Current Medications Generic Name Dose Route Start Last Admin Trade Name Freq PRN Reason Stop Dose Admin Acetaminophen 650 mg 05/03/20 00:40 Acetaminophen 325 Mg Tablet PO Q6H PRN Pain, Mild (Pain Scale 1-3) Clonidine HCl 0.1 mg 05/03/20 06:25 Clonidine Hcl 0.1 Mg Tablet PO TID PRN withdrawal Protocol Docusate Sodium 100 mg 05/03/20 00:40 Docusate Sodium 100 Mg Capsule PO DAILY PRN Constipation Enoxaparin Sodium 40 mg 05/03/20 00:40 05/03/20 01:11 Enoxaparin Sodium 40 Mg/0.4 Ml Syringe SUBCUT 40 mg Q24H ELISEO Administration Fluoxetine HCl 20 mg 05/03/20 09:00 05/03/20 11:59 Fluoxetine Hcl 20 Mg Capsule PO Not Given DAILY ELISEO Gabapentin 400 mg 05/03/20 09:00 05/03/20 09:00 Gabapentin 400 Mg Capsule PO Not Given TID ELISEO Hydroxyzine HCl 25 mg 05/03/20 06:27 Hydroxyzine Hcl 25 Mg Tablet PO Q6H PRN anxiety/restlessness Omeprazole 40 mg 05/03/20 06:30 05/03/20 11:59 Omeprazole 40 Mg Capsule.Dr PO Not Given DAILY@0630 ELISEO Ondansetron HCl 4 mg 05/03/20 00:40 Ondansetron Hcl 4 Mg/2 Ml Vial IVPUSH Q8H PRN Nausea and Vomiting Quetiapine Fumarate 50 mg 05/03/20 06:18 Quetiapine Fumarate 50 Mg Tablet PO TID PRN Anxiety Quetiapine Fumarate 100 mg 05/03/20 21:00 Quetiapine Fumarate 100 Mg Tablet PO BEDTIME ELISEO Sodium Chloride 3 ml 05/03/20 00:40 05/03/20 12:00 0.9 % Sodium Chloride Flush 3 Ml Syringe IVFLUSH 3 ml QSHIFT ELISEO Administration Tizanidine HCl 4 mg 05/03/20 06:18 Tizanidine Hcl 4 Mg Tablet PO Q4H PRN Muscle Spasm Trazodone HCl 50 mg 05/03/20 06:18 Trazodone Hcl 50 Mg Tablet PO BEDTIME PRN Insomnia Labs CBC & Chem 7: 05/03/20 05:36 05/03/20 05:36 Assessment and Plan (1) Drug overdose: Status: Acute (2) Seizure: Status: Acute (3) Major depress dis, severe: Status: Acute (4) Opioid use disorder, moderate, in controlled environment: Status: Acute Assessment and Plan: 59-year-old male who presented to hospital after found in overdose. Developed seizure activity in the ED. toxic encephalopathy due to opiate overdose status post narcan monitor once more awake will get bhn eval seizures ? due to narcan monitor major depressive disorder quetiapine, fluoxetine
[2020-05-03] MEDS: QUEtiapine Fumarate 100 MG TABLET PO (20:33)
[2020-05-03] MEDS: Gabapentin 400 MG CAPSULE PO (20:33)
[2020-05-04] VITALS (7 sets, daily range): BP systolic 133–159; BP diastolic 72–92; PULSE 70–82; RESP 16–20; TEMP 36.4–37; O2SAT 93–100
--- NOTE | 2020-05-04 | XR_ITS ---
EXAMINATION: RIGHT WRIST X-RAY CLINICAL INFORMATION: Fall. Pain. COMPARISON: None TECHNIQUE: 4 views right wrist FINDINGS: There is an old healed fifth metacarpal fracture. No acute fracture or dislocation is seen. Carpal bones are normal appearing. Joint spaces are normal. Soft tissues are normal. XR/XR wrist RT w scaphoid IMPRESSION: Old right fifth metacarpal fracture. No acute fracture seen.
[2020-05-04] MEDS: Omeprazole 40 MG CAPSULE.DR PO (05:45)
[2020-05-04 06:30] LABS: MANUAL DIFF FLAG NO
[2020-05-04 06:47] LABS: Basophils Percent Auto 0.4 % (0-2); Eosinophils Absolute Auto 0.3 X10*3/uL (0.0-0.4); Eosinophils Percent Auto 3.2 % (0-4); Hematocrit 34.3 % (42-52); Hemoglobin 11.1 g/dl (14.0-18.0); Imm Gran Abs Auto 0.02 X10*3/uL (0.00-0.03); Imm Gran Pct Auto 0.2 % (0.0-0.4); Lymphocytes Absolute Auto 4.4 X10*3/uL (1.2-4.9); Lymphocytes Percent Auto 49.6 % (20-40); Mean Corpuscular HGB Conc 32.4 g/dl (31.0-36.0); Mean Corpuscular Hemoglobin 29.3 pg (27.0-33.0); Mean Corpuscular Volume 90.5 fL (80-98); Mean Platelet Volume 10.9 fL (9.4-12.4); Monocytes Absolute Auto 1.4 X10*3/uL (0.1-1.2); Monocytes Percent Auto 15.2 % (2-11); Neutrophils Absolute Auto 2.8 X10*3/uL (2.0-8.3); Neutrophils Percent Auto 31.4 % (45-73); Platelet Count 268 X10*3/uL (160-400); Red Blood Count 3.79 X10*6/uL (4.60-5.80); Red Cell Distribution Width 20.8 % (11.0-16.0); White Blood Count 8.9 X10*3/uL (4.8-10.8)
[2020-05-04 07:21] LABS: Anion Gap 9 (12-20); Blood Urea Nitrogen 18 mg/dL (9-16); Calcium 8.1 mg/dL (8.4-10.2); Carbon Dioxide 28 mmol/L (22-29); Chloride 109 mmol/L (96-108); Creatinine Clr Calc Pharmacy 170.3; Estimated Glomerular Filt Rate > 60; Glucose Fasting 59 mg/dL (60-99); Sodium 142 mmol/L (135-145)
[2020-05-04] MEDS: Gabapentin 400 MG CAPSULE PO ×3 (07:36→20:15)
[2020-05-04] MEDS: 0.9 % Sodium Chloride Flush 3 ML SYRINGE IVFLUSH ×2 (07:36→15:14)
[2020-05-04] MEDS: FLUoxetine HCl 20 MG CAPSULE PO (07:36)
--- NOTE | 2020-05-04 11:56 | HO.PM.IMPN ---
Subjective Subjective Date of Service: 05/04/20 Interval History: sleepy, right wrist pain Cardiovascular Cardiovascular: Reports no additional cardiovascular complaints Respiratory Respiratory: Reports no additional respiratory complaints Physical Exam Vital Signs: Vital Signs: Last Vital Signs Temp 97.5 F 05/04/20 11:52 Pulse 71 05/04/20 11:52 Resp 18 05/04/20 11:52 BP 147/72 H 05/04/20 11:52 Pulse Ox 100 05/04/20 11:52 Body Mass Index 30.5 General: lethargic, no acute distress Resp: CTA bilateral CVS: S1,S2,RRR GI: soft, non tender, non distended Neuro: motor grossly intact Psych: appropriate affect Objective Data Current Medications Generic Name Dose Route Start Last Admin Trade Name Freq PRN Reason Stop Dose Admin Acetaminophen 650 mg 05/03/20 00:40 Acetaminophen 325 Mg Tablet PO Q6H PRN Pain, Mild (Pain Scale 1-3) Clonidine HCl 0.1 mg 05/03/20 06:25 Clonidine Hcl 0.1 Mg Tablet PO TID PRN withdrawal Protocol Docusate Sodium 100 mg 05/03/20 00:40 Docusate Sodium 100 Mg Capsule PO DAILY PRN Constipation Enoxaparin Sodium 40 mg 05/03/20 00:40 05/03/20 23:18 Enoxaparin Sodium 40 Mg/0.4 Ml Syringe SUBCUT 40 mg Q24H ELISEO Administration Fluoxetine HCl 20 mg 05/03/20 09:00 05/04/20 07:36 Fluoxetine Hcl 20 Mg Capsule PO 20 mg DAILY ELISEO Administration Gabapentin 400 mg 05/03/20 09:00 05/04/20 07:36 Gabapentin 400 Mg Capsule PO 400 mg TID ELISEO Administration Hydroxyzine HCl 25 mg 05/03/20 06:27 Hydroxyzine Hcl 25 Mg Tablet PO Q6H PRN anxiety/restlessness Omeprazole 40 mg 05/03/20 06:30 05/04/20 05:45 Omeprazole 40 Mg Capsule.Dr PO 40 mg DAILY@0630 ELISEO Administration Ondansetron HCl 4 mg 05/03/20 00:40 Ondansetron Hcl 4 Mg/2 Ml Vial IVPUSH Q8H PRN Nausea and Vomiting Quetiapine Fumarate 50 mg 05/03/20 06:18 Quetiapine Fumarate 50 Mg Tablet PO TID PRN Anxiety Quetiapine Fumarate 100 mg 05/03/20 21:00 05/03/20 20:33 Quetiapine Fumarate 100 Mg Tablet PO 100 mg BEDTIME ELISEO Administration Sodium Chloride 3 ml 05/03/20 00:40 05/04/20 07:36 0.9 % Sodium Chloride Flush 3 Ml Syringe IVFLUSH 3 ml QSHIFT ELISEO Administration Tizanidine HCl 4 mg 05/03/20 06:18 Tizanidine Hcl 4 Mg Tablet PO Q4H PRN Muscle Spasm Trazodone HCl 50 mg 05/03/20 06:18 Trazodone Hcl 50 Mg Tablet PO BEDTIME PRN Insomnia Labs CBC & Chem 7: 05/04/20 05:29 05/04/20 05:29 Microbiology Microbiology Results: Microbiology 05/02/20 20:48 Blood - Venous Blood Culture - Preliminary No growth after 24 hours. 05/02/20 20:39 Blood - Venous Blood Culture - Preliminary No growth after 24 hours. Assessment and Plan (1) Drug overdose: Status: Acute (2) Seizure: Status: Acute (3) Major depress dis, severe: Status: Acute (4) Opioid use disorder, moderate, in controlled environment: Status: Acute Assessment and Plan: 59-year-old male who presented to hospital after found in overdose. Developed seizure activity in the ED. toxic encephalopathy due to opiate overdose status post narcan monitor once more awake will get bhn eval more awake, but still pretty out of it, pupils constricted, will continue to monitor right writs pain check xray seizures ? due to narcan monitor major depressive disorder quetiapine, fluoxetine
[2020-05-04 12:11] LABS: Glucose, Whole Blood 69 mg/dL (60-115)
[2020-05-04 16:30] LABS: Glucose, Whole Blood 80 mg/dL (60-115)
[2020-05-04] MEDS: QUEtiapine Fumarate 100 MG TABLET PO (20:15)
[2020-05-04 21:35] LABS: Glucose, Whole Blood 93 mg/dL (60-115)
[2020-05-04] MEDS: cloNIDine HCL 0.1 MG TABLET PO (22:12)
[2020-05-04] MEDS: hydrOXYzine HCL 25 MG TABLET PO (22:12)
--- NOTE | 2020-05-04 23:49 | PC.NURSE ---
Patient high fall risk, seizure precautions in place, bed alarm in place. Educate patient on telesitter for safety, patient refused. Filler Machine Operator made aware.
[2020-05-05] MEDS: 0.9 % Sodium Chloride Flush 3 ML SYRINGE IVFLUSH (00:10)
[2020-05-05] MEDS: Enoxaparin Sodium 40 MG/0.4 ML SYRINGE SUBCUT (01:29)
[2020-05-05 04:00] VITALS: BP 143/79; PULSE 80; RESP 20; TEMP 37.1; O2SAT 96
--- NOTE | 2020-05-05 04:39 | MHC.PIE ---
Pt refused to have IV access. Hospitalist made aware.
[2020-05-05] MEDS: Omeprazole 40 MG CAPSULE.DR PO (05:39)
[2020-05-05 06:13] LABS: MANUAL DIFF FLAG NO
[2020-05-05 06:27] LABS: Basophils Percent Auto 0.5 % (0-2); Eosinophils Absolute Auto 0.4 X10*3/uL (0.0-0.4); Eosinophils Percent Auto 4.6 % (0-4); Hematocrit 34.5 % (42-52); Hemoglobin 11.4 g/dl (14.0-18.0); Imm Gran Abs Auto 0.02 X10*3/uL (0.00-0.03); Imm Gran Pct Auto 0.2 % (0.0-0.4); Lymphocytes Absolute Auto 3.6 X10*3/uL (1.2-4.9); Lymphocytes Percent Auto 42.6 % (20-40); Mean Corpuscular Hemoglobin 29.7 pg (27.0-33.0); Mean Corpuscular Volume 89.8 fL (80-98); Mean Platelet Volume 10.8 fL (9.4-12.4); Monocytes Absolute Auto 1.2 X10*3/uL (0.1-1.2); Monocytes Percent Auto 14.7 % (2-11); Neutrophils Absolute Auto 3.2 X10*3/uL (2.0-8.3); Neutrophils Percent Auto 37.4 % (45-73); Platelet Count 243 X10*3/uL (160-400); Red Blood Count 3.84 X10*6/uL (4.60-5.80); Red Cell Distribution Width 20.5 % (11.0-16.0); White Blood Count 8.5 X10*3/uL (4.8-10.8)
[2020-05-05 06:55] LABS: Alanine Aminotransferase 45 U/L (0-40); Albumin Level 2.7 g/dL (3.5-5.0); Alkaline Phosphatase 156 U/L (39-117); Anion Gap 10 (12-20); Aspartate Amino Transferase 81 U/L (5-37); Bilirubin Direct 0.4 mg/dL (0.0-0.5); Bilirubin Total 0.6 mg/dL (0.0-1.0); Blood Urea Nitrogen 21 mg/dL (9-16); Carbon Dioxide 28 mmol/L (22-29); Chloride 105 mmol/L (96-108); Creatinine Clr Calc Pharmacy 147.1; Estimated Glomerular Filt Rate > 60; Glucose Fasting 103 mg/dL (60-99); Sodium 139 mmol/L (135-145); Total Protein 6.4 g/dL (6.5-8.0)
[2020-05-05 07:36] VITALS: BP 128/80; PULSE 82; RESP 18; TEMP 36.7; O2SAT 95
[2020-05-05 07:43] LABS: Glucose, Whole Blood 85 mg/dL (60-115)
[2020-05-05] MEDS: Gabapentin 400 MG CAPSULE PO ×2 (08:36→15:04)
[2020-05-05] MEDS: FLUoxetine HCl 20 MG CAPSULE PO (08:36)
[2020-05-05 12:00] VITALS: RESP 18
--- NOTE | 2020-05-05 12:19 | PM.DS ---
DS: Providers Provider Date of admission: 05/02/20 23:11 Primary care physician: Unknown Physician Consults: 05/05/20 08:43 Consult to Crisis Stat Reason for consultation: rule out suicide attempt 05/05/20 09:10 Consult to Care Team Routine Comment: Reason for consultation: heroin overdose DS: Diagnosis Discharge Diagnosis (1) Drug overdose: Status: Acute (2) Seizure: Status: Acute (3) Major depress dis, severe: Status: Acute (4) Opioid use disorder, moderate, in controlled environment: Status: Acute DS: Medications Discharge Medications Home Medications: Previous Rx's Medication Instructions Recorded acetaminophen 650 mg PO Q6H PRN #1 tab 03/22/20 clotrimazole 1 appl TOPICAL BID #1 g 03/22/20 fluoxetine 20 mg PO DAILY #11 cap 03/22/20 gabapentin 400 mg PO TID #1 cap 03/22/20 hydroxyzine HCl 25 mg PO BEDTIME PRN #1 tab 03/22/20 omeprazole 40 mg PO DAILY #1 cap 03/22/20 quetiapine 50 mg PO TID PRN #1 tab 03/22/20 quetiapine 100 mg PO BEDTIME #1 tab 03/22/20 tizanidine 4 mg PO Q4H PRN #1 tab 03/22/20 trazodone 50 mg PO BEDTIME PRN #1 tab 03/22/20 DS: Summary Hospital Course Hospital Course: patient was admitted for toxic encephalopathy due to accidental heroin overdose complicated by seizure, possibly induced by narcan. after 2 days patient full woke up. he was seen by [facility] who felt he was not a risk for self harm at this time and will therefore, be discharged. Time Spent with Patient Time attestation: Total time spent providing and/or coordinating discharge services: Physical Exam Vital Signs: Vital Signs: Last Vital Signs Temp 98.0 F 05/05/20 07:36 Pulse 82 05/05/20 07:36 Resp 18 05/05/20 07:36 BP 128/80 05/05/20 07:36 Pulse Ox 95 05/05/20 07:36 Body Mass Index 30.5 General: AO X 3, no acute distress Resp: CTA bilateral CVS: S1,S2,RRR GI: soft, non tender, non distended Neuro: motor grossly intact Psych: appropriate affect DS: Data Data Completed and Pending Labs on day of discharge: 05/02/20 19:33 LORazepam [Ativan] 4 mg IVPUSH ONCE ONE 05/02/20 19:34 levETIRAcetam in NaCl (iso-os) [Keppra] 1,500 mg in 100 ml IV ONCE 05/02/20 19:35 LORazepam [Ativan] 2 mg .ROUTE .STK-MED ONE 05/02/20 19:41 Glucose, Whole Blood Routine 05/02/20 20:12 ECG 12 lead EKG Stat EKG Documentation DIRECTED 05/02/20 20:13 CT head/brain wo con Stat 05/02/20 20:14 0.9 % Sodium Chloride [Ns] 1,000 ml IVCONT 999 mls/hr 05/02/20 20:17 B Type Natriuretic Peptide Stat Basic Metabolic Panel Stat Complete Blood Count Auto Diff Stat Ethanol Stat Lipase Stat Liver Panel Stat Magnesium Stat Prothrombin Time INR Stat Troponin-I High Sensitivity Stat 05/02/20 20:27 ondansetron HCL [Zofran] 4 mg .ROUTE .STK-MED ONE ondansetron HCL [Zofran] 4 mg IVPUSH ONCE ONE 05/02/20 20:39 Drug Screen Urine Stat Lactic Acid Stat 05/02/20 21:28 Insert Rectal Tube NOW 05/02/20 22:26 0.9 % Sodium Chloride [Ns] 1,000 ml IVCONT 999 mls/hr 05/02/20 22:45 Acetaminophen [Tylenol] 325 mg NC ONCE ONE 05/02/20 22:53 COVID-19 ID NOW ([facility]) Stat LORazepam [Ativan] 4 mg IM STAT STA LORazepam [Ativan] 4 mg IVPUSH ONCE ONE 05/02/20 23:05 ~Lactic Acid-LAB USE ONLY Stat 05/02/20 23:07 Transfer Order Routine 05/03/20 00:40 IV insert/maintain Q4HR Intake and Output Q8HR Vital Signs Q4HR 05/03/20 01:20 ~Lactic Acid-LAB USE ONLY Stat 05/03/20 05:36 Basic Metabolic Panel Routine Complete Blood Count Auto Diff Routine 05/03/20 06:18 hydrOXYzine HCL [Atarax] 25 mg PO BEDTIME PRN 05/03/20 Breakfast Regular Diet 05/04/20 XR wrist RT w scaphoid Routine 05/04/20 05:29 BMP [Basic Metabolic Panel Fasting] Routine Complete Blood Count Auto Diff Routine 05/04/20 11:55 Glucose, Whole Blood Routine 05/04/20 16:20 Glucose, Whole Blood Routine 05/04/20 21:20 Glucose, Whole Blood Routine 05/05/20 05:46 BMP [Basic Metabolic Panel Fasting] Routine Complete Blood Count Auto Diff Routine Liver Panel Routine 05/05/20 07:39 Glucose, Whole Blood Routine Laboratory Last Values WBC 8.5 X10*3/uL (4.8-10.8) 05/05/20 05:46 RBC 3.84 X10*6/uL (4.60-5.80) L 05/05/20 05:46 Hgb 11.4 g/dl (14.0-18.0) L 05/05/20 05:46 Hct 34.5 % (42-52) L 05/05/20 05:46 MCV 89.8 fL (80-98) 05/05/20 05:46 MCH 29.7 pg (27.0-33.0) 05/05/20 05:46 MCHC 33.0 g/dl (31.0-36.0) 05/05/20 05:46 RDW 20.5 % (11.0-16.0) H 05/05/20 05:46 Plt Count 243 X10*3/uL (160-400) 05/05/20 05:46 MPV 10.8 fL (9.4-12.4) 05/05/20 05:46 Immature Gran % (Auto) 0.2 % (0.0-0.4) 05/05/20 05:46 Neut % (Auto) 37.4 % (45-73) L 05/05/20 05:46 Lymph % (Auto) 42.6 % (20-40) H 05/05/20 05:46 [place] % (Auto) 14.7 % (2-11) H 05/05/20 05:46 Eos % (Auto) 4.6 % (0-4) H 05/05/20 05:46 Baso % (Auto) 0.5 % (0-2) 05/05/20 05:46 Lymph # (Auto) 3.6 X10*3/uL (1.2-4.9) 05/05/20 05:46 [place] # (Auto) 1.2 X10*3/uL (0.1-1.2) 05/05/20 05:46 Eos # (Auto) 0.4 X10*3/uL (0.0-0.4) 05/05/20 05:46 Baso # (Auto) 0.0 X10*3/uL (0.0-0.2) 05/05/20 05:46 Abs Immat Gran (auto) 0.02 X10*3/uL (0.00-0.03) 05/05/20 05:46 Absolute Neuts (auto) 3.2 X10*3/uL (2.0-8.3) 05/05/20 05:46 Absolute Nucleated RBC 0.000 X10*3/uL (0.0-0.012) 05/05/20 05:46 Nucleated RBC % (auto) 0.0 /100WBC (0.0-0.2) 05/05/20 05:46 PT 13.2 SEC (10.8-13.0) H 05/02/20 20:17 INR 1.1 (0.9-1.1) 05/02/20 20:17 Sodium 139 mmol/L (135-145) 05/05/20 05:46 Potassium 4.0 mmol/l (3.3-5.1) 05/05/20 05:46 Chloride 105 mmol/L (96-108) 05/05/20 05:46 Carbon Dioxide 28 mmol/L (22-29) 05/05/20 05:46 Anion Gap 10 (12-20) L 05/05/20 05:46 BUN 21 mg/dL (9-16) H 05/05/20 05:46 Creatinine 0.66 mg/dL (0.5-1.4) 05/05/20 05:46 Estim Creat Clear Calc 147.1 05/05/20 05:46 Estimated GFR > 60 05/05/20 05:46 POC Glucose 85 mg/dL (60-115) 05/05/20 07:39 Random Glucose 99 mg/dL (60-115) 05/03/20 05:36 Fasting Glucose 103 mg/dL (60-99) H D 05/05/20 05:46 Lactic Acid 8.7 mmol/L (0.5-2.0) H* 05/02/20 20:39 Lactic Acid Fup @ 2Hr 2.1 mmol/L (0.5-2.0) H* 05/02/20 23:05 Lactic Acid Fup @ 4Hr 0.9 mmol/L (0.5-2.0) 05/03/20 01:20 Calcium 8.0 mg/dL (8.4-10.2) L 05/05/20 05:46 Magnesium 2.0 mg/dL (1.6-2.6) 05/02/20 20:17 Magnesium Cancelled 05/02/20 20:17 Total Bilirubin 0.6 mg/dL (0.0-1.0) 05/05/20 05:46 Direct Bilirubin 0.4 mg/dL (0.0-0.5) 05/05/20 05:46 AST 81 U/L (5-37) H 05/05/20 05:46 ALT 45 U/L (0-40) H 05/05/20 05:46 Alkaline Phosphatase 156 U/L (39-117) H D 05/05/20 05:46 Troponin I High Sens 4.2 ng/L (<3.5-35.0) 05/02/20 20:17 B-Natriuretic Peptide 210 pg/mL (<100) H 05/02/20 20:17 Total Protein 6.4 g/dL (6.5-8.0) L D 05/05/20 05:46 Albumin 2.7 g/dL (3.5-5.0) L D 05/05/20 05:46 Lipase 60 U/L (8-78) 05/02/20 20:17 Lipase Cancelled 05/02/20 20:17 Urine Color YELLOW 05/02/20 20:39 Urine Appearance CLEAR 05/02/20 20:39 Urine pH 5.5 (5.0-8.0) 05/02/20 20:39 Ur Specific [place] >= 1.030 (1.005-1.025) H 05/02/20 20:39 Urine Protein NEG MG/DL (NEG-TRACE) 05/02/20 20:39 Urine Glucose (UA) NEG MG/DL (NEG) 05/02/20 20:39 Urine Ketones NEG MG/DL (NEG) 05/02/20 20:39 Urine Blood TRACE (NEG) 05/02/20 20:39 Urine Nitrite NEG (NEG) 05/02/20 20:39 Ur Leukocyte Esterase NEG (NEG) 05/02/20 20:39 Urine RBC 1-4 /HPF (0) 12 20:39 Urine WBC 0 /HPF (0-4) 12 20:39 Ur Squamous Epith Cells NONE /LPF 05/02/20 20:39 Urine Bacteria NONE /LPF 05/02/20 20:39 Urine Mucus TRACE /LPF 12 20:39 Urine Opiates Screen POSITIVE (Not Detect) H 12 20:39 Ur Barbiturates Screen Not Detected (Not Detect) 12 20:39 Ur Phencyclidine Scrn Not Detected (Not Detect) 12 20:39 Ur Amphetamines Screen Not Detected (Not Detect) 12 20:39 U Benzodiazepines Scrn Not Detected (Not Detect) 05/02/20 20:39 Urine Cocaine Screen Not Detected (Not Detect) 05/02/20 20:39 U Marijuana (THC) Screen Not Detected (Not Detect) 05/02/20 20:39 Ethyl Alcohol < 10 mg/dL 05/02/20 20:17 COVID-19 (MARISELA) Negative (Negative) 05/02/20 22:53 COVID-19 Clin Com See Note 05/02/20 22:53 Preliminary micro results at discharge 05/02/20 20:48 Blood Culture - Preliminary Blood - Venous No growth after 48 hours. 05/02/20 20:39 Blood Culture - Preliminary Blood - Venous No growth after 48 hours. Discharge Plan Discharge Patient Disposition: Home, Self-Care Referrals: Physician,Unknown [Primary Care Provider] - Discharge Medications: Continued acetaminophen 325 mg Tablet 650 mg PO Q6H PRN (Reason: Headache/Pain Mild Scale (1-3)) Qty: 1 RF: 0 gabapentin 400 mg Capsule 400 mg PO TID Qty: 1 RF: 0 quetiapine 100 mg Tablet 100 mg PO BEDTIME Qty: 1 RF: 0 trazodone 50 mg Tablet 50 mg PO BEDTIME PRN (Reason: Insomnia) Qty: 1 RF: 0 hydroxyzine HCl 25 mg Tablet 25 mg PO BEDTIME PRN (Reason: Anxiety) Qty: 1 RF: 0 fluoxetine 20 mg Capsule 20 mg PO DAILY Qty: 11 RF: 0 clotrimazole 1 % Cream 1 appl topical BID Qty: 1 RF: 0 tizanidine 4 mg Tablet 4 mg PO Q4H PRN (Reason: Muscle Spasm) Qty: 1 RF: 0 omeprazole 40 mg Capsule,Delayed Release(Dr/Ec) 40 mg PO DAILY Qty: 1 RF: 0 quetiapine 50 mg Tablet 50 mg PO TID PRN (Reason: Anxiety) Qty: 1 RF: 0 Discharge Orders: Discharge Order (Routine); Ordered 05/05/20 Ordered By: Yahir Bonilla Activity on Discharge: As tolerated Visit Report Forms: Patient Portal Discharge page Care Plan Goals: recovery Health Concerns: opoioid dependence Plan of Treatment: avoid heroin
--- NOTE | 2020-05-05 12:33 | MHC.CM.PN ---
DC TODAY no home services have been ordered. Patient will arrange for private transportion.
--- NOTE | 2020-05-05 14:13 | MHC.CARE ---
Recovery Support note: Patient is a 59 year old Qatari speaking male who [place] [facility] [place] to a [place]. Patient acknowledges that he shouldn't continue using and that he is josesito to be alive. Patient reports he is connected with the [facility] and that he plans to get Suboxone and ultimately Vivitrol through their clinic. Patient reports that he has had two years sobriety in the past. 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 Patient expressed concern that he did not have his wallet, pants or shoes. Patient insisted that he had them when he got here. Security and the Pod did not have patient's belongings. RN called patient's son who reported that he had the belongings and would drop them off. Discussed case with patient's RN and CM.
== END 2020-05-05 16:15 | disposition home or self-care (01) | DRG 812 ==
LOC: HO.ED 22:58 → HO.IMC 23:38
PROVIDERS: Admitting Provider Internal Medicine; Emergency Provider Emergency Medicine; Visit Provider Internal Medicine
DX: T40.601A Poisoning by unspecified narcotics, accidental (unintentional), initial encounter (principal); R56.9 Unspecified convulsions; F17.210 Nicotine dependence, cigarettes, uncomplicated; S81.812A Laceration without foreign body, left lower leg, initial encounter; Z20.828 Contact with and (suspected) exposure to other viral communicable diseases; Z71.6 Tobacco abuse counseling; X58.XXXA Exposure to other specified factors, initial encounter; Y93.9 Activity, unspecified; Y92.9 Unspecified place or not applicable; Y99.9 Unspecified external cause status; F32.9 Major depressive disorder, single episode, unspecified; F11.23 Opioid dependence with withdrawal; Z88.5 Allergy status to narcotic agent; Z88.6 Allergy status to analgesic agent; Z79.899 Other long term (current) drug therapy
CPT/HCPCS: 36415; 70450; 73110; 80048; 80076; 80307; 80320; 81001; 82947; 83605; 83690; 83735; 83880; 84484; 85025; 85610; 87040; 87635; 93005; 96361; 96372; 96374; 96375; 96376; 99285; 99291; J1650; J1953; J2060; J2405

== ENCOUNTER 2020-05-05 21:03 | Emergency (ER) | payer MEDICAID, SELFPAY ==
[2020-05-05 21:10] VITALS: BP 153/84; PULSE 88; RESP 16; TEMP 36.8; O2SAT 92; BMI 30.5
--- NOTE | 2020-05-05 21:24 | PC.NURSE ---
[facility] faxed/care team notified/care team will call N to update patient status.
--- NOTE | 2020-05-05 22:24 | ED_ITS ---
HPI - Psych General Chief Complaint: Psychiatric Symptoms Stated Complaint: CRISIS Time Seen by Provider: 05/06/20 00:25 Source: patient Mode of arrival: ambulatory Limitations: no limitations History of Present Illness HPI Narrative: Patient presents to the ED for suicidal ideation. Patient states he is suicidal because he is having issues with his son. Patient refuse to specify his planned how he would kill himself. Patient denies any auditory / visual hallucination. Related Data Previous Rx's Medication Instructions Recorded acetaminophen 650 mg PO Q6H PRN #1 tab 03/22/20 clotrimazole 1 appl TOPICAL BID #1 g 03/22/20 fluoxetine 20 mg PO DAILY #11 cap 03/22/20 gabapentin 400 mg PO TID #1 cap 03/22/20 hydroxyzine HCl 25 mg PO BEDTIME PRN #1 tab 03/22/20 omeprazole 40 mg PO DAILY #1 cap 03/22/20 quetiapine 50 mg PO TID PRN #1 tab 03/22/20 quetiapine 100 mg PO BEDTIME #1 tab 03/22/20 tizanidine 4 mg PO Q4H PRN #1 tab 03/22/20 trazodone 50 mg PO BEDTIME PRN #1 tab 03/22/20 Allergies Allergy/AdvReac Type Severity Reaction Status Date / Time acetaminophen [From TYLENOL] Allergy Unknown UNK Verified 05/05/20 21:10 codeine [CODEINE] Allergy Unknown RASH Verified 05/05/20 21:10 pneumococcal vaccine Allergy Unknown PARALYSIS Verified 05/05/20 21:10 [PNEUMOCOCCAL VACCINE] tuberculin, purified protein Allergy Unknown RASH Verified 05/05/20 21:10 deriva [TUBERCULIN, PURIFIED PROTEIN DERIVA] venlafaxine [From EFFEXOR] AdvReac Unknown UNKNOWN Verified 05/05/20 21:10 Review of Systems Review of Systems: Yes all other systems are reviewed and are negative Constitutional: Constitutional: Reports as per HPI and Reports no additional constitutional complaints Eyes: Eyes: Reports as per HPI and Reports no additional eye complaints ENT: Reports system reviewed and no additional complaints, except as documented and Reports as per HPI Cardiovascular: Cardiovascular: Reports as per HPI and Reports no additional cardiovascular complaints Respiratory: Respiratory: Reports as per HPI and Reports no additional respiratory complaints Gastrointestinal: Gastrointestinal: Reports as per HPI and Reports no additional gastrointestinal complaints Genitourinary: Genitourinary: Reports no additional male genitourinary complaints and Reports as per HPI Neurologic: Reports system reviewed and no additional complaints, except as documented and Reports as per HPI Psychiatric: Psychiatric: Reports no additional psychiatric complaints, Reports as per HPI, Reports depression and Reports suicidal ideation [facility] Past Medical History Medical History (Updated 05/06/20 @ 03:28 by LIZETT Hope) Anxiety Depression Diabetes HTN (hypertension) Suicidal ideations Social History Social History Household Members: Unknown / Unable to assess Housing: Unknown / Unable to assess Alcohol intake: unknown Smoking Status: Unknown if ever smoked Tobacco Type: Cigarette Cigarettes Per Day: 3 Years Smoked: 30 Second Hand Smoke Exposure: No Substance Use Type: Opiates Advance Directives: No Advance Directives Information Provided: Yes service: No ([employer]) Current occupational status: unemployed Sexual orientation: Straight/Heterosexual Physical Exam Vital Signs: Vital Signs: Last Vital Signs Temp 97.8 F 05/06/20 00:51 Pulse 77 05/06/20 00:51 Resp 16 05/06/20 00:51 BP 139/77 05/06/20 00:51 Pulse Ox 96 05/06/20 00:51 Body Mass Index 30.5 Const: General: cooperative, healthy appearing, comfortable, no acute distress, well developed, alert, awake and Physically active Orientation/consciousness: patient oriented x3 HENMT: Head: Yes normal to inspection and Yes No palpable skull fracture present Eyes: General: appearance normal, both eyes and all related structures Neck: Neck: Yes normal visual inspection, Yes full ROM, Yes no lymphadenopathy, Yes no meningeal signs, Yes trachea midline, Yes supple and No tender Chest: Chest palpation & inspection: normal inspection of the chest, normal palpation of entire chest wall and no localized rib tenderness Resp: Effort & Inspection: normal respiratory effort and able to speak in complete sentences Auscultation: clear to auscultation bilaterally Cardio: Jugular venous distension: no JVD Heart sounds: S1 normal heart sound present and S2 normal heart sound present GI: Inspection: Yes normal to inspection and No abdominal wall ecchymosis Palpation (GI): Soft to palpation, not firm, nontender, no guarding and not rigid : General: No CVA tenderness and Yes no CVA tenderness Back/Spine/Pelvis: Back: no CVA tenderness, No CVA tenderness and No back tenderness Skin: General skin exam: no rashes or lesions noted Neuro: General: patient oriented x3, gait normal, no meningeal signs and CN's II-XI intact bilaterally Cranial nerves: Yes CN's II-XII intact bilaterally Extrem: General: Yes normal to inspection and Yes full ROM Psych: Appearance: grossly normal, well kempt and not disheveled Mental Status: mental status grossly normal Speech and movement: Normal speech and movement present Affect: normal affect Attitude: cooperative Thought process: Normal thought process present Thought content: Suicidality present Course Course Course Narrative: Patient will have psych evaluation due to statement of suicidal ideation. Patient also had basic labs. Reevaluation(s) Reevaluation #1: patient present not any distress. Patient will be waiting for [facility] evaluation in the morning. Time: 03:28 MDM - Psych MDM Narrative Medical decision making narrative: depression Restraints Face to Face Assessment: Face to Face Assessment: Current Situation: After assessment of the patient, a review of the pertinent medical record and a discussion with nursing staff, I feel the patient requires a restrain intervention. Reaction To: [] Medical Condition: [] Behavioral State: [] Continued Need: [] Lab Data Labs: Lab Results 05/05/20 Range/Units 23:46 Urine Opiates Screen POSITIVE H (Not Detect) Ur Barbiturates Screen Not Detected (Not Detect) Ur Phencyclidine Scrn Not Detected (Not Detect) Ur Amphetamines Screen Not Detected (Not Detect) U Benzodiazepines Scrn Not Detected (Not Detect) Urine Cocaine Screen Not Detected (Not Detect) U Marijuana (THC) Screen Not Detected (Not Detect) Discharge Plan Discharge Clinical Impression: Depression Prescriptions: No Action acetaminophen 325 mg Tablet 650 mg PO Q6H PRN (Reason: Headache/Pain Mild Scale (1-3)) Qty: 1 RF: 0 gabapentin 400 mg Capsule 400 mg PO TID Qty: 1 RF: 0 quetiapine 100 mg Tablet 100 mg PO BEDTIME Qty: 1 RF: 0 trazodone 50 mg Tablet 50 mg PO BEDTIME PRN (Reason: Insomnia) Qty: 1 RF: 0 hydroxyzine HCl 25 mg Tablet 25 mg PO BEDTIME PRN (Reason: Anxiety) Qty: 1 RF: 0 fluoxetine 20 mg Capsule 20 mg PO DAILY Qty: 11 RF: 0 clotrimazole 1 % Cream 1 appl topical BID Qty: 1 RF: 0 tizanidine 4 mg Tablet 4 mg PO Q4H PRN (Reason: Muscle Spasm) Qty: 1 RF: 0 omeprazole 40 mg Capsule,Delayed Release(Dr/Ec) 40 mg PO DAILY Qty: 1 RF: 0 quetiapine 50 mg Tablet 50 mg PO TID PRN (Reason: Anxiety) Qty: 1 RF: 0
[2020-05-06] VITALS (8 sets, daily range): BP systolic 120–139; BP diastolic 70–78; PULSE 68–82; RESP 16–18; TEMP 36.6–36.7; O2SAT 95–96
[2020-05-06 00:39] LABS: Amphetamine Screen Urine Not Detected (Not Detect); Barbiturates, Urine Not Detected (Not Detect); Benzodiazepines Screen Urine Not Detected (Not Detect); Cannabinoid Screen Urine Not Detected (Not Detect); Cocaine Screen Urine Not Detected (Not Detect); Opiate Screen Urine POSITIVE (Not Detect); Phencyclidine Screen Urine Not Detected (Not Detect)
[2020-05-06] MEDS: QUEtiapine Fumarate 50 MG TABLET PO ×2 (00:43→21:27)
[2020-05-06] MEDS: QUEtiapine Fumarate 100 MG TABLET PO ×2 (00:43→21:27)
[2020-05-06] MEDS: Gabapentin 400 MG CAPSULE PO ×4 (00:43→21:27)
[2020-05-06] MEDS: traZODone HCL 50 MG TABLET PO ×2 (00:44→21:27)
[2020-05-06] MEDS: TiZANidine HCL 4 MG TABLET PO ×4 (00:44→21:27)
--- NOTE | 2020-05-06 07:15 | PC.NURSE ---
Report received. PT is sleeping in bed. Breathing is even and unlabored. Waiting to be seen by N.
[2020-05-06] MEDS: Omeprazole 40 MG CAPSULE.DR PO (08:43)
[2020-05-06] MEDS: FLUoxetine HCl 20 MG CAPSULE PO (08:44)
--- NOTE | 2020-05-06 11:42 | PC.NURSE ---
pT SEEN BY Fe, CURRENTLY RESTING IN ROOM. REPORT RECEIVED FROM gricelda Gupta
--- NOTE | 2020-05-06 18:58 | PC.NURSE ---
Per report patient slept most part of the shift, currently in bed appears sleeping, no distress reported, will continue to monitor.
--- NOTE | 2020-05-06 21:32 | PC.NURSE ---
Patient in bed, complaint with Vital assessment/unremarkable, compliant with HS PO medication, denied distress, will continue to monitor.
[2020-05-07] VITALS (8 sets, daily range): BP systolic 131–140; BP diastolic 78–79; PULSE 66–70; RESP 16–18; TEMP 36.4–36.9; O2SAT 96–97
--- NOTE | 2020-05-07 07:13 | PC.NURSE ---
Report received from CLAUDE Hernandes. Pt awake, alert. Currently eating breakfast, states he was able to sleep some of last night. no concerns reported.
[2020-05-07] MEDS: FLUoxetine HCl 20 MG CAPSULE PO (08:05)
[2020-05-07] MEDS: Gabapentin 400 MG CAPSULE PO ×3 (08:05→20:49)
[2020-05-07] MEDS: Omeprazole 40 MG CAPSULE.DR PO (08:05)
[2020-05-07] MEDS: TiZANidine HCL 4 MG TABLET PO ×3 (08:28→20:49)
--- NOTE | 2020-05-07 19:18 | PC.NURSE ---
Report received. PT resting quietly in his room. Just seen by DENI. PT is now inpatient bed search.
[2020-05-07] MEDS: QUEtiapine Fumarate 100 MG TABLET PO (20:49)
[2020-05-08 06:00] VITALS: BP 151/90; PULSE 71; RESP 18; TEMP 37.5; O2SAT 97
--- NOTE | 2020-05-08 07:00 | PC.NURSE ---
Report received. PT currently sleeping, respirations even and unlabored, in no apparent distress. Pt is EATS bedsearch.
[2020-05-08] MEDS: TiZANidine HCL 4 MG TABLET PO ×3 (08:22→20:10)
[2020-05-08] MEDS: Gabapentin 400 MG CAPSULE PO ×3 (08:22→20:10)
[2020-05-08] MEDS: Omeprazole 40 MG CAPSULE.DR PO (08:22)
[2020-05-08] MEDS: FLUoxetine HCl 20 MG CAPSULE PO (08:22)
[2020-05-08 09:58] LABS: COVID-19 Test Negative (Negative); IDNOW Serial# 9DD0AD1C
[2020-05-08 10:10] VITALS: BP 138/84; PULSE 75; RESP 16; TEMP 36.8; O2SAT 97
[2020-05-08 15:38] VITALS: BP 141/89; PULSE 71; RESP 17; TEMP 36.7; O2SAT 100
--- NOTE | 2020-05-08 19:17 | PC.NURSE ---
Report received. PT is sitting in bed quietly. Calm and cooperative. EATS bed search in progress.
[2020-05-08] MEDS: QUEtiapine Fumarate 100 MG TABLET PO (20:11)
[2020-05-09] VITALS: BP 141/80; PULSE 60; RESP 16; TEMP 36.9; O2SAT 98
[2020-05-09] MEDS: TiZANidine HCL 4 MG TABLET PO ×2 (00:33→08:16)
--- NOTE | 2020-05-09 07:12 | PC.NURSE ---
Report received. PT currently eating breakfast, calm and cooperative, denies complaints. PT is EATS [facility].
[2020-05-09] MEDS: Omeprazole 40 MG CAPSULE.DR PO (08:16)
[2020-05-09] MEDS: Gabapentin 400 MG CAPSULE PO (08:16)
[2020-05-09] MEDS: FLUoxetine HCl 20 MG CAPSULE PO (08:16)
[2020-05-09 09:04] VITALS: BP 131/72; PULSE 68; RESP 14; TEMP 36.9; O2SAT 97
== END 2020-05-09 09:57 ==
PROVIDERS: Physician Assistant; Physician Assistant Medical; Emergency Provider Emergency Medicine
DX: F32.9 Major depressive disorder, single episode, unspecified (principal); R45.851 Suicidal ideations; Z20.828 Contact with and (suspected) exposure to other viral communicable diseases; I10 Essential (primary) hypertension; E11.9 Type 2 diabetes mellitus without complications; F11.90 Opioid use, unspecified, uncomplicated; F17.200 Nicotine dependence, unspecified, uncomplicated; Z79.899 Other long term (current) drug therapy
CPT/HCPCS: 80307; 87635; 99285

== ENCOUNTER 2020-05-21 18:27 | Inpatient (IN) | payer OTHER, SELFPAY ==
[2020-05-21 21:50] VITALS: BMI 26.2
[2020-05-21] MEDS: TiZANidine HCL 4 MG TABLET PO (22:19)
[2020-05-21] MEDS: clonazePAM 1 MG TABLET PO (22:19)
[2020-05-21] MEDS: traZODone HCL 50 MG TABLET PO (22:19)
[2020-05-21] MEDS: QUEtiapine Fumarate 100 MG TABLET PO ×2 (22:19)
[2020-05-21] MEDS: Gabapentin 400 MG CAPSULE PO (22:24)
[2020-05-21] MEDS: Amoxicillin/Potassium Clav 500 MG TABLET PO (22:45)
--- NOTE | 2020-05-22 00:06 | PC.ADMIT ---
Patient is a single 59 year old Yoruba speaking male admitted as a CV admission from [facility] ED in [place], [place]. Patient has a long history of IPLOC and substance abuse treatment admissions. He has been to many local [facility] hospitals and was on [facility] many times in the past, with the most recent admission to [facility] in February of 2020. Patient originally went to [facility] in [place] for a c/o abdominal pain. When he was medically cleared the patient then voiced SI and that he did not feel safe out in the community. Patient was evaluated by [facility] [employer]. Doc to doc and nurse to nurse done prior to admission. Patient arrived on the unit and was pleasant but said he was very tired. He ate dinner and went to bed. He did not feel up to signing legals or releases tonight. He had his medication bottles with him. This song writer reviewed his medications from his prescription bottles as well as the MAR from [facility]. Dr. Preston was notified of the admission. Dr. Preston was also made aware of the patient's wounds on bilateral shins. Although patient has been started on antibiotics a hospitalist consult has been ordered. Patient denied any current SI; he will be on 15 minute safety checks
[2020-05-22] MEDS: QUEtiapine Fumarate 50 MG TABLET PO ×2 (02:20→23:33)
[2020-05-22] MEDS: TiZANidine HCL 4 MG TABLET PO ×5 (02:20→23:32)
[2020-05-22] MEDS: Omeprazole 20 MG CAPSULE.DR PO (07:19)
[2020-05-22 08:45] LABS: MANUAL DIFF FLAG NO
[2020-05-22 08:46] LABS: Basophils Absolute Auto 0.1 X10*3/uL (0.0-0.2); Basophils Percent Auto 0.9 % (0-2); Eosinophils Absolute Auto 0.3 X10*3/uL (0.0-0.4); Eosinophils Percent Auto 3.9 % (0-4); Hematocrit 36.6 % (42-52); Hemoglobin 12.2 g/dl (14.0-18.0); Imm Gran Abs Auto 0.01 X10*3/uL (0.00-0.03); Imm Gran Pct Auto 0.2 % (0.0-0.4); Lymphocytes Absolute Auto 3.1 X10*3/uL (1.2-4.9); Lymphocytes Percent Auto 48.3 % (20-40); Mean Corpuscular HGB Conc 33.3 g/dl (31.0-36.0); Mean Corpuscular Volume 90.1 fL (80-98); Mean Platelet Volume 9.9 fL (9.4-12.4); Monocytes Absolute Auto 0.9 X10*3/uL (0.1-1.2); Monocytes Percent Auto 13.9 % (2-11); Neutrophils Absolute Auto 2.1 X10*3/uL (2.0-8.3); Neutrophils Percent Auto 32.8 % (45-73); Platelet Count 373 X10*3/uL (160-400); Red Blood Count 4.06 X10*6/uL (4.60-5.80); Red Cell Distribution Width 19.7 % (11.0-16.0); White Blood Count 6.4 X10*3/uL (4.8-10.8)
[2020-05-22] MEDS: Spironolactone 25 MG TABLET 50 MG PO (09:01)
[2020-05-22] MEDS: Gabapentin 400 MG CAPSULE PO ×3 (09:02→20:40)
[2020-05-22] MEDS: Amoxicillin/Potassium Clav 500 MG TABLET PO ×2 (09:02→20:41)
[2020-05-22] MEDS: clonazePAM 1 MG TABLET PO ×3 (09:02→20:40)
[2020-05-22] MEDS: FLUoxetine HCl 20 MG CAPSULE 40 MG PO (09:02)
[2020-05-22] MEDS: Furosemide 40 MG TABLET PO (09:02)
[2020-05-22 09:08] LABS: Alanine Aminotransferase 63 U/L (0-40); Albumin Level 2.9 g/dL (3.5-5.0); Alkaline Phosphatase 189 U/L (39-117); Anion Gap 11 (12-20); Aspartate Amino Transferase 92 U/L (5-37); Bilirubin Total 0.8 mg/dL (0.0-1.0); Blood Urea Nitrogen 23 mg/dL (9-16); Calcium 8.7 mg/dL (8.4-10.2); Carbon Dioxide 27 mmol/L (22-29); Chloride 106 mmol/L (96-108); Creatinine Clr Calc Pharmacy 100.1; Estimated Glomerular Filt Rate > 60; Glucose Fasting 98 mg/dL (60-99); Potassium 4.7 mmol/l (3.3-5.1); Sodium 139 mmol/L (135-145); Total Protein 7.2 g/dL (6.5-8.0)
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
[2020-05-22 18:00] VITALS: BP 108/59; PULSE 63; TEMP 36.4
[2020-05-22] MEDS: QUEtiapine Fumarate 100 MG TABLET PO (20:41)
[2020-05-23] MEDS: TiZANidine HCL 4 MG TABLET PO ×5 (04:35→20:53)
[2020-05-23 06:33] VITALS: BP 106/61; PULSE 62; RESP 14; TEMP 36.4; O2SAT 96
[2020-05-23] MEDS: Omeprazole 20 MG CAPSULE.DR PO (06:41)
[2020-05-23] MEDS: Spironolactone 25 MG TABLET 50 MG PO (08:42)
[2020-05-23] MEDS: FLUoxetine HCl 20 MG CAPSULE 40 MG PO (08:42)
[2020-05-23] MEDS: Gabapentin 400 MG CAPSULE PO ×3 (08:42→20:51)
[2020-05-23] MEDS: clonazePAM 1 MG TABLET PO ×3 (08:42→20:51)
[2020-05-23] MEDS: Furosemide 40 MG TABLET PO (08:42)
[2020-05-23] MEDS: Buprenorphine/Naloxone 2/0.5mg FILM 1 FILM SUBLINGUAL ×2 (08:42→12:54)
[2020-05-23] MEDS: Amoxicillin/Potassium Clav 500 MG TABLET PO ×2 (08:43→20:50)
--- NOTE | 2020-05-23 11:32 | PM.IMCN ---
History of Present Illness Data of Consult Service Date: 05/23/20 Requesting physician: Neal Preston Primary Care Provider: Unknown Physician HPI Reason for consult: transfer from other facility, ? cellulitis This is a 59-year-old male with a history of depression and PTSD admitted to for management of suicidal ideation. The hospitalists were asked to see him in consultation due to possible cellulitis. He has a history of chronic venous stasis dermatitis with chronic ulcers of bilateral anterior shins. He is currently taking Augmentin. He reports that he does not follow with any Wound Clinic. He denies any fever. Review of Systems Review of Systems: Yes all other systems are reviewed and are negative Constitutional: Constitutional: Denies fever(s) Cardiovascular: Cardiovascular: Denies chest pain Respiratory: Respiratory: Denies cough Gastrointestinal: Gastrointestinal: Denies abdominal pain COUNT INCLUDES THE [facility] Medical History (Updated 05/23/20 @ 11:46 by LIZETT Delgado) Anxiety Depression Diet-controlled diabetes mellitus Hepatitis C virus HTN (hypertension) Liver cirrhosis Neuropathy Suicidal ideations Venous stasis dermatitis Functional capacity: independent ambulation Family History (Updated 05/23/20 @ 11:42 by LIZETT Delgado) Father Diabetes Surgical History (Updated 05/23/20 @ 11:41 by LIZETT Delgado) H/O splenectomy Hx of cholecystectomy S/P correction of deviated nasal septum Social History (Updated 05/23/20 @ 11:43 by LIZETT Delgado) Housing: Homeless Do you presently have visiting nurse or other home services: No Alcohol intake: former Smoking Status: Current some day smoker Tobacco Type: Cigarette Packs Per Day: 1 Cigarettes Per Day: 20.0 Years Smoked: 40 Smoked in Last 30 Days: Yes Patient Interested in Nicotine Replacement: Yes Patient Given Instructions on How to Stop Smoking: Yes Date Education Initiated: 05/21/20 Second Hand Smoke Exposure: Yes Use of substances other than those prescribed or required for medical reasons: Yes Substance Use Type: Heroin and Opiates Last Used Substance: Unknown Currently Displaying Signs/Symptoms of Drug Intoxication Withdrawal: No Any prior treatment program specific to substance use: No Have you been hit, kicked, punched, or otherwise hurt by someone within the past year? If so, by whom?: No Do you feel safe in your current relationship?: No Is there a partner from a previous relationship who is making you feel unsafe now?: No Are you made to feel afraid or neglected: No Advance Directives: No Advance Directives Information Provided: No Advance Directives on File: No Do you have thoughts of harming others: None Do you have a plan to hurt others: No Plan Recently lost weight without trying: Unsure service: Yes Current occupational status: unemployed Sexual orientation: Decline to Answer Meds Allergies Allergy/AdvReac Type Severity Reaction Status Date / Time acetaminophen [From TYLENOL] Allergy Unknown UNK Verified 05/05/20 21:10 codeine [CODEINE] Allergy Unknown RASH Verified 05/05/20 21:10 pneumococcal vaccine Allergy Unknown PARALYSIS Verified 05/05/20 21:10 [PNEUMOCOCCAL VACCINE] tuberculin, purified protein Allergy Unknown RASH Verified 05/05/20 21:10 deriva [TUBERCULIN, PURIFIED PROTEIN DERIVA] venlafaxine [From EFFEXOR] AdvReac Unknown UNKNOWN Verified 05/05/20 21:10 Home Medications Medication Instructions Recorded Confirmed Type Augmentin 500 BID 05/21/20 History clonazepam 1 mg PO TID 05/21/20 05/21/20 History fluoxetine 40 mg PO DAILY 05/21/20 05/21/20 History furosemide 40 mg PO DAILY 05/21/20 05/21/20 History hydroxyzine HCl 50 mg PO Q4H PRN 05/21/20 History pantoprazole 40 mg PO DAILY 05/21/20 05/21/20 History spironolactone 50 mg PO DAILY 05/21/20 05/21/20 History Physical Exam Vital Signs and Narrative: Vital Signs: Last Vital Signs Temp 97.6 F 05/23/20 06:33 Pulse 62 05/23/20 06:33 Resp 14 05/23/20 06:33 BP 106/61 05/23/20 06:33 Pulse Ox 96 05/23/20 06:33 Body Mass Index 26.2 Const: Nutritional Appearance: well nourished HENMT: Head: Yes normocephalic and Yes atraumatic Eyes: Sclerae: sclerae normal Chest: Chest palpation & inspection: normal inspection of the chest Resp: Effort & Inspection: normal respiratory effort and no respiratory distress Auscultation: clear to auscultation bilaterally Cardio: Rate: regular rate Rhythm: regular rhythm Skin: Other: Chronic venous stasis dermatitis bilateral lower extremities. Bilateral anterior carney ulcerations, dressing adhered to wounds unable to completely visualize. No surrounding cellulitis. Neuro: Cranial nerves: Yes CN's II-XII intact bilaterally and Yes Bilaterally intact EOM present Extrem: General: Yes normal to inspection Results Labs CBC and Chem 7: 05/22/20 08:05 05/22/20 08:05 Assessment and Plan (1) Venous stasis dermatitis: Status: Inactive This is a 59-year-old male with a history of depression, PTSD hypertension chronic venous stasis dermatitis admitted to for management depression with suicidal ideation b/l venous stasis dermatitis with ulceration does not appear to be infected needs wound care evaluation and daily dressing changes. There are no other active medical conditions at this time. Thank you for allowing us to participate in the care this patient. This case was discussed with Dr. Andres
--- NOTE | 2020-05-23 11:36 | P.PNPSI_ITS ---
Subjective Subjective Date of Service: 05/23/20 Reason For Visit: depression abdominal pain si Interim History: patient depressed anxious irritable withdrawn. Wishes to go back on Suboxone fearful of relapse and accidental overdose cognitively slowed at times Medication Compliance: Yes Side effects from medications: Yes Mental Status Exam Mental Status Exam Narrative: patient was alert and cooperative. His hopeless helpless despondent history of poor impulse control asking to go on medically assisted treatment for opiate cravings for harm reduction. Denies active thoughts of self-harm in this setting was having serious thoughts to or kill himself no hallucinations or delusional material patient was not confused Patient Appearance: Disheveled Patient Orientation: Person, Place, Time and Situation Level of Consciousness: Awake Patient Behavior: Appropriate Mood Description: Depressed, Anxious, Flat and Sad Affect Description: Constricted Diagnostics Vital Signs (24Hr): Vital Signs - 24 hr 05/22/20 18:00 05/23/20 06:33 Temperature 97.6 F 97.6 F Pulse Rate 63 62 Respiratory Rate 14 Blood Pressure 108/59 L 106/61 Pulse Oximetry 96 Body Mass Index 26.2 Labs Results: 05/22/20 08:05 05/22/20 08:05 Labs: Laboratory Results - last 48 hr 05/22/20 05/22/20 08:05 08:05 WBC 6.4 RBC 4.06 L Hgb 12.2 L Hct 36.6 L MCV 90.1 MCH 30.0 MCHC 33.3 RDW 19.7 H Plt Count 373 D MPV 9.9 Immature Gran % (Auto) 0.2 Neut % (Auto) 32.8 L Lymph % (Auto) 48.3 H [place] % (Auto) 13.9 H Eos % (Auto) 3.9 Baso % (Auto) 0.9 Lymph # (Auto) 3.1 [place] # (Auto) 0.9 Eos # (Auto) 0.3 Baso # (Auto) 0.1 Abs Immat Gran (auto) 0.01 Absolute Neuts (auto) 2.1 Absolute Nucleated RBC 0.000 Nucleated RBC % (auto) 0.0 Sodium 139 Potassium 4.7 Chloride 106 Carbon Dioxide 27 Anion Gap 11 L BUN 23 H Creatinine 0.81 Estim Creat Clear Calc 100.1 Estimated GFR > 60 Fasting Glucose 98 Calcium 8.7 D Total Bilirubin 0.8 AST 92 H ALT 63 H Alkaline Phosphatase 189 H D Total Protein 7.2 Albumin 2.9 L Medications Medications Current Medications Generic Name Dose Route Start Last Admin Trade Name Freq PRN Reason Stop Dose Admin Al Hydroxide/Mg Hydroxide 30 ml 05/21/20 20:05 Magnesium Hydrox/Alum Hydrox 30 Ml Oral.Susp PO Q6H PRN Heartburn/Nausea Amoxicillin/Clavulanate Potassium 500 mg 05/21/20 22:00 05/23/20 08:43 Amoxicillin/Potassium Clav 500 Mg Tablet PO 500 mg Q12H ELISEO Administration Buprenorphine/Naloxone 1 film 05/23/20 09:00 05/23/20 08:42 Buprenorphine/Naloxone 2/0.5mg Film SUBLINGUAL 1 film DAILY ELISEO Administration Clonazepam 1 mg 05/21/20 22:00 05/23/20 08:42 Clonazepam 1 Mg Tablet PO 1 mg TID ELISEO Administration Fluoxetine HCl 40 mg 05/22/20 09:00 05/23/20 08:42 Fluoxetine Hcl 20 Mg Capsule PO 40 mg DAILY ELISEO Administration Furosemide 40 mg 05/22/20 09:00 05/23/20 08:42 Furosemide 40 Mg Tablet PO 40 mg DAILY ELISEO Administration Protocol Gabapentin 400 mg 05/22/20 09:00 05/23/20 08:42 Gabapentin 400 Mg Capsule PO 400 mg TID ELISEO Administration Hydroxyzine HCl 25 mg 05/21/20 20:05 Hydroxyzine Hcl 25 Mg Tablet PO BEDTIME PRN Anxiety Magnesium Hydroxide 30 ml 05/21/20 20:05 Milk Of Magnesia 30 Ml Oral.Susp PO DAILY PRN Constipation Omeprazole 20 mg 05/22/20 06:30 05/23/20 06:41 Omeprazole 20 Mg Capsule.Dr PO 20 mg DAILY@0630 ELISEO Administration Quetiapine Fumarate 50 mg 05/21/20 21:53 05/22/20 23:33 Quetiapine Fumarate 50 Mg Tablet PO 50 mg TID PRN Administration Anxiety Quetiapine Fumarate 100 mg 05/22/20 21:00 05/22/20 20:41 Quetiapine Fumarate 100 Mg Tablet PO 100 mg BEDTIME ELISEO Administration Spironolactone 50 mg 05/22/20 09:00 05/23/20 08:42 Spironolactone 25 Mg Tablet PO 50 mg DAILY ELISEO Administration Protocol Tizanidine HCl 4 mg 05/21/20 21:53 05/23/20 08:42 Tizanidine Hcl 4 Mg Tablet PO 4 mg Q4H PRN Administration Muscle Spasm Trazodone HCl 50 mg 05/21/20 20:05 05/21/20 22:19 Trazodone Hcl 50 Mg Tablet PO 50 mg BEDTIME PRN Administration Insomnia Allergies Allergies Allergy/AdvReac Type Severity Reaction Status Date / Time acetaminophen [From TYLENOL] Allergy Unknown UNK Verified 05/05/20 21:10 codeine [CODEINE] Allergy Unknown RASH Verified 05/05/20 21:10 pneumococcal vaccine Allergy Unknown PARALYSIS Verified 05/05/20 21:10 [PNEUMOCOCCAL VACCINE] tuberculin, purified protein Allergy Unknown RASH Verified 05/05/20 21:10 deriva [TUBERCULIN, PURIFIED PROTEIN DERIVA] venlafaxine [From EFFEXOR] AdvReac Unknown UNKNOWN Verified 05/05/20 21:10 Assessment & Plan Assessment & Plan (1) Major depress dis, severe: Status: Acute Code(s): F32.2 - Major depressive disorder, single episode, severe without psychotic features Assessment and Plan: start Suboxone urge lowering of clonazepam monitor safety consider speech CSS (2) Cerebral microvascular disease: Status: Acute Code(s): I67.89 - Other cerebrovascular disease (3) 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: Status: Acute Code(s): I69.814 - 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 cerebro vascular disease Greater than 50% of the session was spent on counseling and/or coordination of care
[2020-05-23 20:50] VITALS: BP 118/74; PULSE 54; TEMP 36.3
[2020-05-23] MEDS: QUEtiapine Fumarate 100 MG TABLET PO (20:50)
[2020-05-24] MEDS: traZODone HCL 50 MG TABLET PO ×2 (02:59→23:36)
[2020-05-24] MEDS: QUEtiapine Fumarate 50 MG TABLET PO ×2 (02:59→21:02)
[2020-05-24 06:20] VITALS: BP 117/56; PULSE 72; RESP 16; TEMP 36.2; O2SAT 97
[2020-05-24] MEDS: Omeprazole 20 MG CAPSULE.DR PO (07:08)
[2020-05-24 08:42] VITALS: BP 117/56; PULSE 72
[2020-05-24] MEDS: Spironolactone 25 MG TABLET 50 MG PO (08:42)
[2020-05-24] MEDS: TiZANidine HCL 4 MG TABLET PO ×4 (08:43→20:59)
[2020-05-24] MEDS: FLUoxetine HCl 20 MG CAPSULE 40 MG PO (08:43)
[2020-05-24] MEDS: clonazePAM 1 MG TABLET PO (08:43)
[2020-05-24] MEDS: Furosemide 40 MG TABLET PO (08:43)
[2020-05-24] MEDS: Gabapentin 400 MG CAPSULE PO ×3 (08:46→20:58)
[2020-05-24] MEDS: Amoxicillin/Potassium Clav 500 MG TABLET PO ×2 (10:19→20:59)
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
[2020-05-24] MEDS: Buprenorphine/Naloxone 4/1 mg FILM 1 FILM SUBLINGUAL ×2 (13:28→16:25)
[2020-05-24] MEDS: LORazepam 1 MG TABLET PO ×2 (15:29→20:59)
--- NOTE | 2020-05-24 15:45 | PC.NURSE ---
PT SIGNED A 3 DAY NOTICE ON 05/24 AND IT WILL BE UP ON TH05/27
[2020-05-24] MEDS: QUEtiapine Fumarate 100 MG TABLET PO (20:58)
[2020-05-24 22:00] VITALS: BP 115/75; PULSE 82; TEMP 36.3
--- NOTE | 2020-05-24 23:14 | HO.PSYCHPN ---
Subjective Subjective Date of Service: 05/24/20 Reason For Visit: depression abdominal pain si Subjective Notes: Conditional Voluntary Interim History: patient anxious depressed ruminating tearful at times worried future agreeable to Suboxone hoping it will help with sobriety Medication Compliance: Yes Mental Status Exam Mental Status Exam Narrative: patient was alert and cooperative. His hopeless helpless despondent history of poor impulse control asking to go on medically assisted treatment for opiate cravings for harm reduction. Denies active thoughts of self-harm in this setting was having serious thoughts to or kill himself no hallucinations or delusional material patient was not confused Patient Appearance: Disheveled Patient Orientation: Person, Place, Time and Situation Level of Consciousness: Awake Patient Behavior: Appropriate Mood Description: Depressed, Anxious, Flat and Sad Affect Description: Constricted Diagnostics Vital Signs (24Hr): Vital Signs - 24 hr 05/24/20 06:20 05/24/20 08:42 Temperature 97.2 F Pulse Rate 72 72 Respiratory Rate 16 Blood Pressure 117/56 L 117/56 L Pulse Oximetry 97 Body Mass Index 26.2 Labs Results: 05/22/20 08:05 05/22/20 08:05 Medications Medications Current Medications Generic Name Dose Route Start Last Admin Trade Name Freq PRN Reason Stop Dose Admin Al Hydroxide/Mg Hydroxide 30 ml 05/21/20 20:05 Magnesium Hydrox/Alum Hydrox 30 Ml Oral.Susp PO Q6H PRN Heartburn/Nausea Amoxicillin/Clavulanate Potassium 500 mg 05/21/20 22:00 05/24/20 20:59 Amoxicillin/Potassium Clav 500 Mg Tablet PO 500 mg Q12H ELISEO Administration Buprenorphine/Naloxone 1 film 05/24/20 13:21 05/24/20 16:25 Buprenorphine/Naloxone 4/1 Mg Film SUBLINGUAL 1 film BID@0800,1700 ELISEO Administration Fluoxetine HCl 40 mg 05/22/20 09:00 05/24/20 08:43 Fluoxetine Hcl 20 Mg Capsule PO 40 mg DAILY ELISEO Administration Furosemide 40 mg 05/22/20 09:00 05/24/20 08:43 Furosemide 40 Mg Tablet PO 40 mg DAILY ELISEO Administration Protocol Gabapentin 400 mg 05/22/20 09:00 05/24/20 20:58 Gabapentin 400 Mg Capsule PO 400 mg TID ELISEO Administration Hydroxyzine HCl 25 mg 05/21/20 20:05 Hydroxyzine Hcl 25 Mg Tablet PO BEDTIME PRN Anxiety Lorazepam 1 mg 05/24/20 15:09 05/24/20 20:59 Lorazepam 1 Mg Tablet PO 1 mg TID ELISEO Administration Magnesium Hydroxide 30 ml 05/21/20 20:05 Milk Of Magnesia 30 Ml Oral.Susp PO DAILY PRN Constipation Omeprazole 20 mg 05/22/20 06:30 05/24/20 07:08 Omeprazole 20 Mg Capsule.Dr PO 20 mg DAILY@0630 ELISEO Administration Quetiapine Fumarate 50 mg 05/21/20 21:53 05/24/20 21:02 Quetiapine Fumarate 50 Mg Tablet PO 50 mg TID PRN Administration Anxiety Quetiapine Fumarate 100 mg 05/22/20 21:00 05/24/20 20:58 Quetiapine Fumarate 100 Mg Tablet PO 100 mg BEDTIME ELISEO Administration Spironolactone 50 mg 05/22/20 09:00 05/24/20 08:42 Spironolactone 25 Mg Tablet PO 50 mg DAILY ELISEO Administration Protocol Tizanidine HCl 4 mg 05/21/20 21:53 05/24/20 20:59 Tizanidine Hcl 4 Mg Tablet PO 4 mg Q4H PRN Administration Muscle Spasm Trazodone HCl 50 mg 05/21/20 20:05 05/24/20 02:59 Trazodone Hcl 50 Mg Tablet PO 50 mg BEDTIME PRN Administration Insomnia Allergies Allergies Allergy/AdvReac Type Severity Reaction Status Date / Time acetaminophen [From TYLENOL] Allergy Unknown UNK Verified 05/05/20 21:10 codeine [CODEINE] Allergy Unknown RASH Verified 05/05/20 21:10 pneumococcal vaccine Allergy Unknown PARALYSIS Verified 05/05/20 21:10 [PNEUMOCOCCAL VACCINE] tuberculin, purified protein Allergy Unknown RASH Verified 05/05/20 21:10 deriva [TUBERCULIN, PURIFIED PROTEIN DERIVA] venlafaxine [From EFFEXOR] AdvReac Unknown UNKNOWN Verified 05/05/20 21:10 Assessment & Plan Assessment & Plan (1) Major depress dis, severe: Status: Acute Code(s): F32.2 - Major depressive disorder, single episode, severe without psychotic features Assessment and Plan: start mirtazapine bedtime change clonazepam to lorazepam discharge planning (2) Opioid use disorder, moderate, in controlled environment: Status: Acute Code(s): F11.20 - Opioid dependence, uncomplicated Greater than 50% of the session was spent on counseling and/or coordination of care
[2020-05-25] MEDS: traZODone HCL 50 MG TABLET PO (01:35)
[2020-05-25] MEDS: TiZANidine HCL 4 MG TABLET PO ×4 (01:35→21:10)
[2020-05-25 04:50] VITALS: BP 117/68; PULSE 60; RESP 16; TEMP 36.3; O2SAT 96
[2020-05-25] MEDS: Omeprazole 20 MG CAPSULE.DR PO (05:33)
[2020-05-25 08:49] VITALS: BP 117/68; PULSE 60
[2020-05-25] MEDS: Gabapentin 400 MG CAPSULE PO ×3 (08:49→21:10)
[2020-05-25] MEDS: Spironolactone 25 MG TABLET 50 MG PO (08:49)
[2020-05-25] MEDS: Furosemide 40 MG TABLET PO (08:50)
[2020-05-25] MEDS: FLUoxetine HCl 20 MG CAPSULE 40 MG PO (08:50)
[2020-05-25] MEDS: Amoxicillin/Potassium Clav 500 MG TABLET PO ×2 (08:50→21:10)
[2020-05-25] MEDS: LORazepam 1 MG TABLET PO ×3 (08:51→21:10)
[2020-05-25] MEDS: Buprenorphine/Naloxone 4/1 mg FILM 1 FILM SUBLINGUAL ×2 (09:01→17:33)
[2020-05-25 18:00] VITALS: PULSE 84; TEMP 36.8
[2020-05-25] MEDS: QUEtiapine Fumarate 50 MG TABLET PO (21:10)
[2020-05-25] MEDS: QUEtiapine Fumarate 100 MG TABLET PO (21:10)
[2020-05-25] MEDS: Mirtazapine 7.5 MG TABLET PO (21:10)
--- NOTE | 2020-05-25 22:24 | HO.PSYCHPN ---
Subjective Subjective Date of Service: 05/25/20 Reason For Visit: depression abdominal pain si Subjective Notes: Conditional Voluntary and 3 Day Interim History: PATIENT FLAT DEPRESSED WITHDRAWN Medication Compliance: Yes Side effects from medications: Yes Mental Status Exam Mental Status Exam Narrative: SAW PATIENT FUTURE ORIENTED FLAT BLUNTED DYSPHORIC BUT AGREEABLE TO OUTPATIENT TREATMENT. STATING HE IS HOPING FOR MEDICALLY ASSISTED TREATMENT WITH SUBOXONE NO HALLUCINATIONS OR DELUSIONAL MATERIAL Patient Appearance: Disheveled Patient Orientation: Person, Place, Time and Situation Level of Consciousness: Awake Patient Behavior: Appropriate Mood Description: Depressed, Anxious, Flat and Sad Affect Description: Constricted Diagnostics Vital Signs (24Hr): Vital Signs - 24 hr 05/25/20 04:50 05/25/20 08:49 05/25/20 18:00 Temperature 97.4 F 98.2 F Pulse Rate 60 60 84 Respiratory Rate 16 Blood Pressure 117/68 117/68 Pulse Oximetry 96 Body Mass Index 26.2 Labs Results: 05/22/20 08:05 05/22/20 08:05 Medications Medications Current Medications Generic Name Dose Route Start Last Admin Trade Name Freq PRN Reason Stop Dose Admin Al Hydroxide/Mg Hydroxide 30 ml 05/21/20 20:05 Magnesium Hydrox/Alum Hydrox 30 Ml Oral.Susp PO Q6H PRN Heartburn/Nausea Amoxicillin/Clavulanate Potassium 500 mg 05/21/20 22:00 05/25/20 21:10 Amoxicillin/Potassium Clav 500 Mg Tablet PO 500 mg Q12H ELISEO Administration Buprenorphine/Naloxone 1 film 05/24/20 13:21 05/25/20 17:33 Buprenorphine/Naloxone 4/1 Mg Film SUBLINGUAL 1 film BID@0800,1700 ELISEO Administration Fluoxetine HCl 40 mg 05/22/20 09:00 05/25/20 08:50 Fluoxetine Hcl 20 Mg Capsule PO 40 mg DAILY ELISEO Administration Furosemide 40 mg 05/22/20 09:00 05/25/20 08:50 Furosemide 40 Mg Tablet PO 40 mg DAILY ELISEO Administration Protocol Gabapentin 400 mg 05/22/20 09:00 05/25/20 21:10 Gabapentin 400 Mg Capsule PO 400 mg TID ELISEO Administration Hydroxyzine HCl 25 mg 05/21/20 20:05 Hydroxyzine Hcl 25 Mg Tablet PO BEDTIME PRN Anxiety Lorazepam 1 mg 05/24/20 15:09 05/25/20 21:10 Lorazepam 1 Mg Tablet PO 1 mg TID ELISEO Administration Magnesium Hydroxide 30 ml 05/21/20 20:05 Milk Of Magnesia 30 Ml Oral.Susp PO DAILY PRN Constipation Mirtazapine 7.5 mg 05/25/20 21:00 05/25/20 21:10 Mirtazapine 7.5 Mg Tablet PO 7.5 mg BEDTIME ELISEO Administration Omeprazole 20 mg 05/22/20 06:30 05/25/20 05:33 Omeprazole 20 Mg Capsule.Dr PO 20 mg DAILY@0630 ELISEO Administration Quetiapine Fumarate 50 mg 05/21/20 21:53 05/25/20 21:10 Quetiapine Fumarate 50 Mg Tablet PO 50 mg TID PRN Administration Anxiety Quetiapine Fumarate 100 mg 05/22/20 21:00 05/25/20 21:10 Quetiapine Fumarate 100 Mg Tablet PO 100 mg BEDTIME ELISEO Administration Spironolactone 50 mg 05/22/20 09:00 05/25/20 08:49 Spironolactone 25 Mg Tablet PO 50 mg DAILY ELISEO Administration Protocol Tizanidine HCl 4 mg 05/21/20 21:53 05/25/20 21:10 Tizanidine Hcl 4 Mg Tablet PO 4 mg Q4H PRN Administration Muscle Spasm Trazodone HCl 50 mg 05/21/20 20:05 05/25/20 01:35 Trazodone Hcl 50 Mg Tablet PO 50 mg BEDTIME PRN Administration Insomnia Allergies Allergies Allergy/AdvReac Type Severity Reaction Status Date / Time acetaminophen [From TYLENOL] Allergy Unknown UNK Verified 05/05/20 21:10 codeine [CODEINE] Allergy Unknown RASH Verified 05/05/20 21:10 pneumococcal vaccine Allergy Unknown PARALYSIS Verified 05/05/20 21:10 [PNEUMOCOCCAL VACCINE] tuberculin, purified protein Allergy Unknown RASH Verified 05/05/20 21:10 deriva [TUBERCULIN, PURIFIED PROTEIN DERIVA] venlafaxine [From EFFEXOR] AdvReac Unknown UNKNOWN Verified 05/05/20 21:10 Assessment & Plan Assessment & Plan (1) Major depress dis, severe: Status: Acute Code(s): F32.2 - Major depressive disorder, single episode, severe without psychotic features Assessment and Plan: IS CONTINUE PROZAC SEROQUEL SUBOXONE STARTED LOWER SEROQUEL LOWER GABAPENTIN CONSIDER LOWERING LORAZEPAM MONITOR FOR OVER SEDATION. PATIENT WARNED REGARDING DRUG INTERACTION Greater than 50% of the session was spent on counseling and/or coordination of care
[2020-05-26] MEDS: TiZANidine HCL 4 MG TABLET PO ×3 (01:50→20:46)
[2020-05-26] MEDS: traZODone HCL 50 MG TABLET PO (01:50)
[2020-05-26] MEDS: hydrOXYzine HCL 25 MG TABLET PO (01:50)
[2020-05-26 06:10] VITALS: BP 140/85; PULSE 88; RESP 18; TEMP 36.4; O2SAT 97
[2020-05-26] MEDS: Amoxicillin/Potassium Clav 500 MG TABLET PO ×2 (08:33→20:46)
[2020-05-26] MEDS: Furosemide 40 MG TABLET PO (08:33)
[2020-05-26] MEDS: Gabapentin 400 MG CAPSULE PO (08:34)
[2020-05-26] MEDS: LORazepam 1 MG TABLET PO ×3 (08:34→20:46)
[2020-05-26] MEDS: Omeprazole 20 MG CAPSULE.DR PO (08:34)
[2020-05-26] MEDS: FLUoxetine HCl 20 MG CAPSULE 40 MG PO (08:34)
[2020-05-26 08:35] VITALS: BP 140/85; PULSE 88
[2020-05-26] MEDS: Spironolactone 25 MG TABLET 50 MG PO (08:35)
[2020-05-26] MEDS: Buprenorphine/Naloxone 4/1 mg FILM 1 FILM SUBLINGUAL (08:38)
--- NOTE | 2020-05-26 12:50 | PC.NURSE ---
Nicotine replacement not needed.
[2020-05-26] MEDS: Gabapentin 300 MG CAPSULE PO ×2 (15:00→20:46)
[2020-05-26] MEDS: Buprenorphine/Naloxone 4/1 mg FILM 1.5 FILM SUBLINGUAL (16:58)
[2020-05-26 17:56] VITALS: BP 119/72; PULSE 77; RESP 18; TEMP 37.4; O2SAT 94
[2020-05-26] MEDS: Mirtazapine 7.5 MG TABLET PO (20:46)
[2020-05-26] MEDS: QUEtiapine Fumarate 50 MG TABLET PO ×2 (20:46→22:04)
--- NOTE | 2020-05-26 23:03 | HO.PSYCHPN ---
Subjective Subjective Date of Service: 05/26/20 Reason For Visit: depression abdominal pain si Subjective Notes: 3 Day Interim History: patient flat with his anxiety states future oriented started on Suboxone at his request states he has discharge plan to live with his sponsor patient with history of head injury abnormalities noted on CT scan patient states he is hoping to remake a life for himself Medication Compliance: Yes Side effects from medications: Yes Mental Status Exam Mental Status Exam Narrative: patient difficulty with ambulation and balance. Slowed mentation he is future oriented mood flat anxiety periods of grief and shame regarding his life. Denies any thoughts of self-harm or states looking forward to medically assisted treatment no hallucinations or delusional material sedation times noted Patient Appearance: Fatigued Diagnostics Vital Signs (24Hr): Vital Signs - 24 hr 05/26/20 06:10 05/26/20 08:35 05/26/20 17:56 Temperature 97.6 F 99.4 F Pulse Rate 88 88 77 Respiratory Rate 18 18 Blood Pressure 140/85 H 140/85 H 119/72 Pulse Oximetry 97 94 Body Mass Index 26.2 Labs Results: 05/22/20 08:05 05/22/20 08:05 Medications Medications Current Medications Generic Name Dose Route Start Last Admin Trade Name Freq PRN Reason Stop Dose Admin Al Hydroxide/Mg Hydroxide 30 ml 05/21/20 20:05 Magnesium Hydrox/Alum Hydrox 30 Ml Oral.Susp PO Q6H PRN Heartburn/Nausea Amoxicillin/Clavulanate Potassium 500 mg 05/21/20 22:00 05/26/20 20:46 Amoxicillin/Potassium Clav 500 Mg Tablet PO 500 mg Q12H ELISEO Administration Buprenorphine/Naloxone 1.5 film 05/26/20 09:15 05/26/20 16:58 Buprenorphine/Naloxone 4/1 Mg Film SUBLINGUAL 1.5 film BID@0800,1700 ELISEO Administration Fluoxetine HCl 40 mg 05/22/20 09:00 05/26/20 08:34 Fluoxetine Hcl 20 Mg Capsule PO 40 mg DAILY ELISEO Administration Furosemide 40 mg 05/22/20 09:00 05/26/20 08:33 Furosemide 40 Mg Tablet PO 40 mg DAILY ELISEO Administration Protocol Gabapentin 300 mg 05/26/20 15:00 05/26/20 20:46 Gabapentin 300 Mg Capsule PO 300 mg TID ELISEO Administration Hydroxyzine HCl 25 mg 05/21/20 20:05 05/26/20 01:50 Hydroxyzine Hcl 25 Mg Tablet PO 25 mg BEDTIME PRN Administration Anxiety Lorazepam 0.5 mg 05/27/20 09:00 Lorazepam 1 Mg Tablet PO TID ELISEO Magnesium Hydroxide 30 ml 05/21/20 20:05 Milk Of Magnesia 30 Ml Oral.Susp PO DAILY PRN Constipation Mirtazapine 7.5 mg 05/25/20 21:00 05/26/20 20:46 Mirtazapine 7.5 Mg Tablet PO 7.5 mg BEDTIME ELISEO Administration Omeprazole 20 mg 05/22/20 06:30 05/26/20 08:34 Omeprazole 20 Mg Capsule.Dr PO 20 mg DAILY@0630 ELISEO Administration Quetiapine Fumarate 50 mg 05/21/20 21:53 05/26/20 22:04 Quetiapine Fumarate 50 Mg Tablet PO 50 mg TID PRN Administration Anxiety Quetiapine Fumarate 50 mg 05/26/20 21:00 05/26/20 20:46 Quetiapine Fumarate 50 Mg Tablet PO 50 mg BEDTIME ELISEO Administration Spironolactone 50 mg 05/22/20 09:00 05/26/20 08:35 Spironolactone 25 Mg Tablet PO 50 mg DAILY ELISEO Administration Protocol Tizanidine HCl 4 mg 05/21/20 21:53 05/26/20 20:46 Tizanidine Hcl 4 Mg Tablet PO 4 mg Q4H PRN Administration Muscle Spasm Trazodone HCl 50 mg 05/21/20 20:05 05/26/20 01:50 Trazodone Hcl 50 Mg Tablet PO 50 mg BEDTIME PRN Administration Insomnia Allergies Allergies Allergy/AdvReac Type Severity Reaction Status Date / Time acetaminophen [From TYLENOL] Allergy Unknown UNK Verified 05/05/20 21:10 codeine [CODEINE] Allergy Unknown RASH Verified 05/05/20 21:10 pneumococcal vaccine Allergy Unknown PARALYSIS Verified 05/05/20 21:10 [PNEUMOCOCCAL VACCINE] tuberculin, purified protein Allergy Unknown RASH Verified 05/05/20 21:10 deriva [TUBERCULIN, PURIFIED PROTEIN DERIVA] venlafaxine [From EFFEXOR] AdvReac Unknown UNKNOWN Verified 05/05/20 21:10 Assessment & Plan Assessment & Plan (1) Major depress dis, severe: Status: Acute Code(s): F32.2 - Major depressive disorder, single episode, severe without psychotic features Assessment and Plan: continue current treatment plan monitor for sedation from Suboxone on 3 day notice will need VNA upon discharge tomorrow (2) Cerebral microvascular disease: Status: Acute Code(s): I67.89 - Other cerebrovascular disease Greater than 50% of the session was spent on counseling and/or coordination of care
[2020-05-27 06:00] VITALS: BP 112/76; PULSE 84; TEMP 36; O2SAT 94
[2020-05-27] MEDS: TiZANidine HCL 4 MG TABLET PO ×4 (06:33→20:07)
[2020-05-27] MEDS: Omeprazole 20 MG CAPSULE.DR PO (06:33)
[2020-05-27 07:00] VITALS: BMI 30.7
[2020-05-27] MEDS: Gabapentin 300 MG CAPSULE PO ×3 (08:49→20:07)
[2020-05-27] MEDS: FLUoxetine HCl 20 MG CAPSULE 40 MG PO (08:50)
[2020-05-27] MEDS: Amoxicillin/Potassium Clav 500 MG TABLET PO ×2 (08:50→20:07)
[2020-05-27 08:51] VITALS: BP 112/76; PULSE 84
[2020-05-27] MEDS: Spironolactone 25 MG TABLET 50 MG PO (08:51)
[2020-05-27] MEDS: LORazepam 1 MG TABLET 0.5 MG PO (08:51)
[2020-05-27] MEDS: Furosemide 40 MG TABLET PO (08:52)
[2020-05-27] MEDS: Buprenorphine/Naloxone 4/1 mg FILM 1.5 FILM SUBLINGUAL ×2 (08:53→16:23)
[2020-05-27 18:00] VITALS: BP 102/75; PULSE 68; TEMP 36.7
[2020-05-27] MEDS: LORazepam 0.5 MG TABLET PO (19:20)
[2020-05-27] MEDS: Mirtazapine 7.5 MG TABLET PO (20:07)
[2020-05-27] MEDS: QUEtiapine Fumarate 50 MG TABLET PO (20:08)
[2020-05-27] MEDS: LORazepam 1 MG TABLET PO (21:20)
--- NOTE | 2020-05-27 23:45 | P.PNPSI_ITS ---
Subjective Subjective Date of Service: 05/27/20 Reason For Visit: depression abdominal pain si Subjective Notes: 3 Day Interim History: Pt seen in f/u pt disorganized at times some sedation anxious dysphoric denies si states has place to live with his sponsor As day goes on patient not able to clarify where he would be living strongly urged patient to stay he needs VNA help with his legs and infection he was started on Suboxone patient eventually after meeting with Mg booker and myself he did eventually retracted 3 day notice and we did discuss referral to a rest home setting he did overhear appear to appreciate the concern Mental Status Exam Mental Status Exam Narrative: patient with flat mood future oriented denies self-harming thoughts did seem to be able to appreciate and integrate the need for some additional structure. No hallucinations or delusional material patient very vague regarding discharge kept stating he had a clear plan with his sponsor but was unable to confirm this he did eventually retracted the 3 day notice he has difficulty hanging on to decision making Patient Appearance: Fatigued and Disheveled Patient Orientation: Person, Place and Time Mood Description: Constricted, Labile and Flat Affect Description: Calm and Apathetic Ability to Follow Directions: Fair Diagnostics Vital Signs (24Hr): Vital Signs - 24 hr 05/27/20 06:00 05/27/20 08:51 05/27/20 18:00 Temperature 96.8 F 98.1 F Pulse Rate 84 84 68 Blood Pressure 112/76 112/76 102/75 Pulse Oximetry 94 Body Mass Index 26.2 Labs Results: 05/22/20 08:05 05/22/20 08:05 Medications Medications Current Medications Generic Name Dose Route Start Last Admin Trade Name Freq PRN Reason Stop Dose Admin Al Hydroxide/Mg Hydroxide 30 ml 05/21/20 20:05 Magnesium Hydrox/Alum Hydrox 30 Ml Oral.Susp PO Q6H PRN Heartburn/Nausea Amoxicillin/Clavulanate Potassium 500 mg 05/21/20 22:00 05/27/20 20:07 Amoxicillin/Potassium Clav 500 Mg Tablet PO 500 mg Q12H ELISEO Administration Buprenorphine/Naloxone 1.5 film 05/26/20 09:15 05/27/20 16:23 Buprenorphine/Naloxone 4/1 Mg Film SUBLINGUAL 1.5 film BID@0800,1700 ELISEO Administration Fluoxetine HCl 40 mg 05/22/20 09:00 05/27/20 08:50 Fluoxetine Hcl 20 Mg Capsule PO 40 mg DAILY ELISEO Administration Furosemide 40 mg 05/22/20 09:00 05/27/20 08:52 Furosemide 40 Mg Tablet PO 40 mg DAILY ELISEO Administration Protocol Gabapentin 300 mg 05/26/20 15:00 05/27/20 20:07 Gabapentin 300 Mg Capsule PO 300 mg TID ELISEO Administration Hydroxyzine HCl 25 mg 05/21/20 20:05 05/26/20 01:50 Hydroxyzine Hcl 25 Mg Tablet PO 25 mg BEDTIME PRN Administration Anxiety Lorazepam 1 mg 05/27/20 21:00 05/27/20 21:20 Lorazepam 1 Mg Tablet PO 1 mg TID ELISEO Administration Magnesium Hydroxide 30 ml 05/21/20 20:05 Milk Of Magnesia 30 Ml Oral.Susp PO DAILY PRN Constipation Mirtazapine 7.5 mg 05/25/20 21:00 05/27/20 20:07 Mirtazapine 7.5 Mg Tablet PO 7.5 mg BEDTIME ELISEO Administration Omeprazole 20 mg 05/22/20 06:30 05/27/20 06:33 Omeprazole 20 Mg Capsule.Dr PO 20 mg DAILY@0630 ELISEO Administration Quetiapine Fumarate 50 mg 05/21/20 21:53 05/26/20 22:04 Quetiapine Fumarate 50 Mg Tablet PO 50 mg TID PRN Administration Anxiety Quetiapine Fumarate 50 mg 05/26/20 21:00 05/27/20 20:08 Quetiapine Fumarate 50 Mg Tablet PO 50 mg BEDTIME ELISEO Administration Spironolactone 50 mg 05/22/20 09:00 05/27/20 08:51 Spironolactone 25 Mg Tablet PO 50 mg DAILY ELISEO Administration Protocol Tizanidine HCl 4 mg 05/21/20 21:53 05/27/20 20:07 Tizanidine Hcl 4 Mg Tablet PO 4 mg Q4H PRN Administration Muscle Spasm Trazodone HCl 50 mg 05/21/20 20:05 05/26/20 01:50 Trazodone Hcl 50 Mg Tablet PO 50 mg BEDTIME PRN Administration Insomnia Allergies Allergies Allergy/AdvReac Type Severity Reaction Status Date / Time acetaminophen [From TYLENOL] Allergy Unknown UNK Verified 05/05/20 21:10 codeine [CODEINE] Allergy Unknown RASH Verified 05/05/20 21:10 pneumococcal vaccine Allergy Unknown PARALYSIS Verified 05/05/20 21:10 [PNEUMOCOCCAL VACCINE] tuberculin, purified protein Allergy Unknown RASH Verified 05/05/20 21:10 deriva [TUBERCULIN, PURIFIED PROTEIN DERIVA] venlafaxine [From EFFEXOR] AdvReac Unknown UNKNOWN Verified 05/05/20 21:10 Assessment & Plan Assessment & Plan (1) Chronic venous hypertension (idiopathic) with ulcer of left lower extremity: Status: Acute Code(s): I87.312 - Chronic venous hypertension (idiopathic) with ulcer of left lower extr emity; L97.929 - Non-pressure chronic ulcer of unspecified part of left lower leg with unspecified severity (2) Cerebral microvascular disease: Status: Acute Code(s): I67.89 - Other cerebrovascular disease (3) 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 Patient agreeable to Suboxone asking for medically assisted treatment his mood is improved Greater than 50% of the session was spent on counseling and/or coordination of care
[2020-05-28] MEDS: TiZANidine HCL 4 MG TABLET PO ×6 (00:42→23:49)
[2020-05-28] MEDS: Omeprazole 20 MG CAPSULE.DR PO (06:15)
[2020-05-28 06:20] VITALS: BP 108/63; PULSE 70; RESP 16; TEMP 36
[2020-05-28 09:31] VITALS: BP 108/63; PULSE 70
[2020-05-28] MEDS: Spironolactone 25 MG TABLET 50 MG PO (09:31)
[2020-05-28] MEDS: FLUoxetine HCl 20 MG CAPSULE 40 MG PO (09:31)
[2020-05-28] MEDS: LORazepam 1 MG TABLET PO ×3 (09:32→20:16)
[2020-05-28] MEDS: Gabapentin 300 MG CAPSULE PO ×3 (09:32→20:15)
[2020-05-28] MEDS: Furosemide 40 MG TABLET PO (09:32)
[2020-05-28] MEDS: Buprenorphine/Naloxone 4/1 mg FILM 1.5 FILM SUBLINGUAL ×2 (09:35→16:30)
[2020-05-28] MEDS: Amoxicillin/Potassium Clav 500 MG TABLET PO ×2 (10:23→20:17)
--- NOTE | 2020-05-28 11:41 | HO.PSYCHPN ---
Subjective Subjective Date of Service: 05/28/20 Reason For Visit: depression abdominal pain si Subjective Notes: Conditional Voluntary Interim History: Pt seesm upset that he stayed, not remembering that he agreed to stay till sunday for meeting with SW to help with dc planning Medication Compliance: Yes Side effects from medications: No Attending Groups: Intermittent Review of Systems Comments: bilateral leg ulcers being attended to by nursing Mental Status Exam Mental Status Exam Patient Appearance: Disheveled Patient Orientation: Person, Place, Time and Situation Level of Consciousness: Awake Patient Behavior: Resistive to Care and Uncooperative Mood Description: Angry Affect Description: Constricted Patient Cognition Impaired: Yes Speech Pattern: Slurred Memory Description: Episodic Impaired Hallucinations: None Delusions: Not Present Thought Process: Rumination Thought Content: positive for Goal Oriented Depressive Symptoms: Increased Irritability Judgement: Fair Judgement and Insight: ? impuslive wish to leave- after prior discussion with inpatient provider- maybe having cravings to use- Diagnostics Vital Signs (24Hr): Vital Signs - 24 hr 05/27/20 18:00 05/28/20 06:20 05/28/20 09:31 Temperature 98.1 F 96.8 F Pulse Rate 68 70 70 Respiratory Rate 16 Blood Pressure 102/75 108/63 108/63 Body Mass Index 26.2 Labs Results: 05/22/20 08:05 05/22/20 08:05 Medications Medications Current Medications Generic Name Dose Route Start Last Admin Trade Name Freq PRN Reason Stop Dose Admin Al Hydroxide/Mg Hydroxide 30 ml 05/21/20 20:05 Magnesium Hydrox/Alum Hydrox 30 Ml Oral.Susp PO Q6H PRN Heartburn/Nausea Amoxicillin/Clavulanate Potassium 500 mg 05/21/20 22:00 05/28/20 10:23 Amoxicillin/Potassium Clav 500 Mg Tablet PO 500 mg Q12H ELISEO Administration Buprenorphine/Naloxone 1.5 film 05/26/20 09:15 05/28/20 09:35 Buprenorphine/Naloxone 4/1 Mg Film SUBLINGUAL 1.5 film BID@0800,1700 ELISEO Administration Fluoxetine HCl 40 mg 05/22/20 09:00 05/28/20 09:31 Fluoxetine Hcl 20 Mg Capsule PO 40 mg DAILY ELISEO Administration Furosemide 40 mg 05/22/20 09:00 05/28/20 09:32 Furosemide 40 Mg Tablet PO 40 mg DAILY ELISEO Administration Protocol Gabapentin 300 mg 05/26/20 15:00 05/28/20 09:32 Gabapentin 300 Mg Capsule PO 300 mg TID ELISEO Administration Hydroxyzine HCl 25 mg 05/21/20 20:05 05/26/20 01:50 Hydroxyzine Hcl 25 Mg Tablet PO 25 mg BEDTIME PRN Administration Anxiety Lorazepam 1 mg 05/27/20 21:00 05/28/20 09:32 Lorazepam 1 Mg Tablet PO 1 mg TID ELISEO Administration Magnesium Hydroxide 30 ml 05/21/20 20:05 Milk Of Magnesia 30 Ml Oral.Susp PO DAILY PRN Constipation Mirtazapine 7.5 mg 05/25/20 21:00 05/27/20 20:07 Mirtazapine 7.5 Mg Tablet PO 7.5 mg BEDTIME ELISEO Administration Omeprazole 20 mg 05/22/20 06:30 05/28/20 06:15 Omeprazole 20 Mg Capsule.Dr PO 20 mg DAILY@0630 ELISEO Administration Quetiapine Fumarate 50 mg 05/21/20 21:53 05/26/20 22:04 Quetiapine Fumarate 50 Mg Tablet PO 50 mg TID PRN Administration Anxiety Quetiapine Fumarate 50 mg 05/26/20 21:00 05/27/20 20:08 Quetiapine Fumarate 50 Mg Tablet PO 50 mg BEDTIME ELISEO Administration Spironolactone 50 mg 05/22/20 09:00 05/28/20 09:31 Spironolactone 25 Mg Tablet PO 50 mg DAILY ELISEO Administration Protocol Tizanidine HCl 4 mg 05/21/20 21:53 05/28/20 10:23 Tizanidine Hcl 4 Mg Tablet PO 4 mg Q4H PRN Administration Muscle Spasm Trazodone HCl 50 mg 05/21/20 20:05 05/26/20 01:50 Trazodone Hcl 50 Mg Tablet PO 50 mg BEDTIME PRN Administration Insomnia Allergies Allergies Allergy/AdvReac Type Severity Reaction Status Date / Time acetaminophen [From TYLENOL] Allergy Unknown UNK Verified 05/05/20 21:10 codeine [CODEINE] Allergy Unknown RASH Verified 05/05/20 21:10 pneumococcal vaccine Allergy Unknown PARALYSIS Verified 05/05/20 21:10 [PNEUMOCOCCAL VACCINE] tuberculin, purified protein Allergy Unknown RASH Verified 05/05/20 21:10 deriva [TUBERCULIN, PURIFIED PROTEIN DERIVA] venlafaxine [From EFFEXOR] AdvReac Unknown UNKNOWN Verified 05/05/20 21:10 Assessment & Plan Assessment & Plan (1) Chronic venous hypertension (idiopathic) with ulcer of left lower extremity: Status: Acute Code(s): I87.312 - Chronic venous hypertension (idiopathic) with ulcer of left lower extremity; L97.929 - Non-pressure chronic ulcer of unspecified part of left lower leg with unspecified severity (2) Depression: Status: Acute Code(s): F32.9 - Major depressive disorder, single episode, unspecified Assessment and Plan: given recent recovery and depression complicated by subabuse doesn't make sense to discharge precipitously after he retractred 3 day and agreed to stay mayb be having some impulse control issues and given multiple comorbidities may be at risk (3) 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
[2020-05-28] MEDS: QUEtiapine Fumarate 50 MG TABLET PO ×2 (14:46→20:16)
[2020-05-28 18:00] VITALS: BP 99/54; PULSE 56; TEMP 36.3
[2020-05-28] MEDS: traZODone HCL 50 MG TABLET PO ×2 (20:16→23:50)
[2020-05-28] MEDS: Mirtazapine 7.5 MG TABLET PO (20:16)
[2020-05-28] MEDS: hydrOXYzine HCL 25 MG TABLET PO (20:16)
[2020-05-29] MEDS: Omeprazole 20 MG CAPSULE.DR PO (04:51)
[2020-05-29] MEDS: TiZANidine HCL 4 MG TABLET PO ×2 (04:51→14:20)
[2020-05-29 04:55] VITALS: BP 123/71; PULSE 67; RESP 16; TEMP 36.4
[2020-05-29 09:01] VITALS: BP 123/71; PULSE 67
[2020-05-29] MEDS: FLUoxetine HCl 20 MG CAPSULE 40 MG PO (09:01)
[2020-05-29] MEDS: Spironolactone 25 MG TABLET 50 MG PO (09:01)
[2020-05-29] MEDS: LORazepam 1 MG TABLET PO ×2 (09:02→14:20)
[2020-05-29] MEDS: Buprenorphine/Naloxone 4/1 mg FILM 1.5 FILM SUBLINGUAL (09:02)
[2020-05-29] MEDS: Furosemide 40 MG TABLET PO (09:02)
[2020-05-29] MEDS: Gabapentin 300 MG CAPSULE PO ×2 (09:24→14:20)
--- NOTE | 2020-05-29 10:38 | P.PNPSI_ITS ---
Subjective Subjective Reason For Visit: depression abdominal pain si Subjective Notes: Conditional Voluntary Interim History: Pt insisting on dc today , feels it was poromised to him if he retracted his 3 d- wants to go to sponsor's house and live with them for a bit - 0 suspect real issue is he darin have 1600$ deposit to account sunday- and not wanting to live in a rest home- He can come up with reasonable plan to fu with Osiris from N at [facility], where he can also get his suboxone and psychiatric care- as well as pcp - Knows he won't get meds till Sunday , though he has a number of his meds from admission he can use- Medication Compliance: Yes Side effects from medications: No Attending Groups: Intermittent Review of Systems Review of Systems ongoing difficulty walking and leg ulcers- these are chronic Mental Status Exam Mental Status Exam Patient Appearance: Disheveled Patient Orientation: Person, Place, Time and Situation Level of Consciousness: Awake Patient Behavior: Appropriate, Anxious and Resistive to Care Mood Description: Calm Affect Description: Calm Patient Cognition Impaired: Yes Ability to Follow Directions: Fair Speech Pattern: Slurred Memory Description: Residential Impaired Hallucinations: None Delusions: Not Present Thought Process: Intact Thought Content: positive for Intact Judgement: Fair Judgement and Insight: Patient appears to understand risk/benefits of leaving now vs sunday, has alternative plan in place for short term- and aware he will have to arrrange longer term. Denies drug/alcohol cravings Diagnostics Vital Signs (24Hr): Vital Signs - 24 hr 05/28/20 18:00 05/29/20 04:55 05/29/20 09:01 Temperature 97.4 F 97.5 F Pulse Rate 56 67 67 Respiratory Rate 16 Blood Pressure 99/54 L 123/71 123/71 Body Mass Index 30.7 Labs Results: 05/22/20 08:05 05/22/20 08:05 Medications Medications Current Medications Generic Name Dose Route Start Last Admin Trade Name Freq PRN Reason Stop Dose Admin Al Hydroxide/Mg Hydroxide 30 ml 05/21/20 20:05 Magnesium Hydrox/Alum Hydrox 30 Ml Oral.Susp PO Q6H PRN Heartburn/Nausea Buprenorphine/Naloxone 1.5 film 05/26/20 09:15 05/29/20 09:02 Buprenorphine/Naloxone 4/1 Mg Film SUBLINGUAL 1.5 film BID@0800,1700 ELISEO Administration Fluoxetine HCl 40 mg 05/22/20 09:00 05/29/20 09:01 Fluoxetine Hcl 20 Mg Capsule PO 40 mg DAILY ELISEO Administration Furosemide 40 mg 05/22/20 09:00 05/29/20 09:02 Furosemide 40 Mg Tablet PO 40 mg DAILY ELISEO Administration Protocol Gabapentin 300 mg 05/26/20 15:00 05/29/20 09:24 Gabapentin 300 Mg Capsule PO 300 mg TID ELISEO Administration Hydroxyzine HCl 25 mg 05/21/20 20:05 05/28/20 20:16 Hydroxyzine Hcl 25 Mg Tablet PO 25 mg BEDTIME PRN Administration Anxiety Lorazepam 1 mg 05/27/20 21:00 05/29/20 09:02 Lorazepam 1 Mg Tablet PO 1 mg TID ELISEO Administration Magnesium Hydroxide 30 ml 05/21/20 20:05 Milk Of Magnesia 30 Ml Oral.Susp PO DAILY PRN Constipation Mirtazapine 7.5 mg 05/25/20 21:00 05/28/20 20:16 Mirtazapine 7.5 Mg Tablet PO 7.5 mg BEDTIME ELISEO Administration Omeprazole 20 mg 05/22/20 06:30 05/29/20 04:51 Omeprazole 20 Mg Capsule.Dr PO 20 mg DAILY@0630 ELISEO Administration Quetiapine Fumarate 50 mg 05/21/20 21:53 05/28/20 14:46 Quetiapine Fumarate 50 Mg Tablet PO 50 mg TID PRN Administration Anxiety Quetiapine Fumarate 50 mg 05/26/20 21:00 05/28/20 20:16 Quetiapine Fumarate 50 Mg Tablet PO 50 mg BEDTIME ELISEO Administration Spironolactone 50 mg 05/22/20 09:00 05/29/20 09:01 Spironolactone 25 Mg Tablet PO 50 mg DAILY ELISEO Administration Protocol Tizanidine HCl 4 mg 05/21/20 21:53 05/29/20 04:51 Tizanidine Hcl 4 Mg Tablet PO 4 mg Q4H PRN Administration Muscle Spasm Trazodone HCl 50 mg 05/21/20 20:05 05/28/20 23:50 Trazodone Hcl 50 Mg Tablet PO 50 mg BEDTIME PRN Administration Insomnia Allergies Allergies Allergy/AdvReac Type Severity Reaction Status Date / Time acetaminophen [From TYLENOL] Allergy Unknown UNK Verified 05/05/20 21:10 codeine [CODEINE] Allergy Unknown RASH Verified 05/05/20 21:10 pneumococcal vaccine Allergy Unknown PARALYSIS Verified 05/05/20 21:10 [PNEUMOCOCCAL VACCINE] tuberculin, purified protein Allergy Unknown RASH Verified 05/05/20 21:10 deriva [TUBERCULIN, PURIFIED PROTEIN DERIVA] venlafaxine [From EFFEXOR] AdvReac Unknown UNKNOWN Verified 05/05/20 21:10 Assessment & Plan Assessment & Plan (1) 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: Status: Acute Code(s): I69.814 - 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 Assessment and Plan: discussed concerns over this and if patient can care for self in community- he feels he has enough supports naming AA sponsor and his , and another friend and his , and son's gf- (2) Opioid use disorder, moderate, in controlled environment: Status: Acute Code(s): F11.20 - Opioid dependence, uncomplicated Assessment and Plan: on suboxone given 3 day rx (3) Depression: Status: Acute Code(s): F32.9 - Major depressive disorder, single episode, unspecified Assessment and Plan: given 3 days of meds, though may not be able to get some till Sunday at [facility] pharmacy given 3 day rx for lorazepam gabapentin 400mg and klonopin of patients which were dced on this admission were able to be wasted by hospital pharmacy Greater than 50% of the session was spent on counseling and/or coordination of care
--- NOTE | 2020-05-29 20:07 | P.DS_ITS ---
DS: Providers Provider Date of Service: 05/29/20 Date of admission: 05/21/20 18:27 Date of discharge: 05/29/20 Primary care physician: Unknown Physician Attending physician on admission: Neal Preston Consults: 05/21/20 20:18 Consult to Hospitalist Routine Consulting Provider: Hospitalist Reason for consultation: pt from [facility] er ? cellulitis / LE skin ulcer Has provider been notified: No 05/23/20 11:55 Consult to Wound Care Provider Routine Consulting Provider: Allison Levi Reason for consultation: b/l venous stasis ulcers Has provider been notified: No Attending physician on discharge: Lynette Caceres Discharging clinician: Lynette Caceres DS: Diagnosis Discharge Diagnosis (1) Chronic venous hypertension (idiopathic) with ulcer of left lower extremity: Status: Acute Problem details: Left anterior tibial venous ulcer Right traumatic laceration confounded by venous disease (2) Cerebral microvascular disease: Status: Acute (3) 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: Status: Acute (4) Opioid use disorder, moderate, in controlled environment: Status: Acute (5) Major depression in partial remission: Status: Acute DS: Medications Discharge Medications Home Medications: Home Medications Medication Instructions Recorded Confirmed hydroxyzine HCl 25 mg PO BEDTIME PRN 06/29/20 06/29/20 [id number] acid 1 tab PO DAILY 06/29/20 06/29/20 [Certavite-Antioxidant] Previous Rx's Medication Instructions Recorded ferrous sulfate 324 mg PO DAILY #30 tab 06/28/20 fluoxetine 40 mg PO DAILY #30 cap 06/28/20 furosemide 40 mg PO DAILY #30 tab 06/28/20 gabapentin 400 mg PO TID #90 cap 06/28/20 lorazepam 0.5 mg PO Q8H PRN #15 tab 06/28/20 mirtazapine 7.5 mg PO BEDTIME #30 tab 06/28/20 omeprazole 40 mg PO DAILY #30 cap 06/28/20 quetiapine [Seroquel] 50 mg PO DAILY PRN #14 tab 06/28/20 spironolactone 50 mg PO DAILY #30 tab 06/28/20 tizanidine 4 mg PO Q8H PRN #30 cap 06/28/20 naloxone [Narcan] 4 mg INTRANASAL Q2M PRN #2 ea 06/29/20 buprenorphine-naloxone [Suboxone] 1 film SUBLINGUAL DAILY #30 ea 07/01/20 Discharge Plan Discharge Patient Disposition: Home, Self-Care Referrals: Goldie Holley (therapist) [Other] - 05/31/20 12:00 pm (Telehealth appointment) Janette Kincaid (psychiatrist) [Other] - 06/25/20 10:00 am (Telehealth appointment) Janette Kincaid (psychiatrist) [Other] - 07/21/20 11:00 am (Telehealth appointment) [facility] (Suboxone Clinic) [Other] - 05/31/20 10:00 am (Take your Suboxone dose prior to appointment and bring last dose letter to the clinic) Isaac Sen [Other] (Referral submitted, follow up for bed availability) Liliana ([facility]) [Other] (Call for additional community support) Orly Boothe III, MD [Physician] - Esther Carson MD [Physician] - 06/04/20 11:00 am (in office) Discharge Medications: Discontinued acetaminophen 325 mg Tablet 650 mg PO Q6H PRN (Reason: Headache/Pain Mild Scale (1-3)) Qty: 1 RF: 0 gabapentin 400 mg Capsule 400 mg PO TID Qty: 1 RF: 0 quetiapine 100 mg Tablet 100 mg PO BEDTIME Qty: 1 RF: 0 quetiapine 50 mg Tablet 50 mg PO TID PRN (Reason: Anxiety) Qty: 1 RF: 0 hydroxyzine HCl 25 mg tablet 50 mg PO Q4H PRN (Reason: Anxiety) RF: 0 clonazepam 1 mg tablet 1 mg PO TID RF: 0 Augmentin 500 MG tablet 500 BID RF: 0 pantoprazole 40 MG tablet 40 mg PO DAILY RF: 0 No Action hydroxyzine HCl 25 mg Tablet 25 mg PO BEDTIME PRN (Reason: Anxiety) RF: 0 Certavite-Antioxidant 18-400 mg-mcg Tablet 1 tab PO DAILY RF: 0 buprenorphine-naloxone [Suboxone] 8-2 mg film 1 film sublingual DAILY Qty: 30 RF: 0 ferrous sulfate 324 mg (65 mg iron) Tablet,Delayed Release (Dr/Ec) 324 mg PO DAILY Qty: 30 RF: 0 gabapentin 400 mg Capsule 400 mg PO TID Qty: 90 RF: 0 lorazepam 0.5 mg Tablet 0.5 mg PO Q8H PRN (Reason: Anxiety) Qty: 15 RF: 1 mirtazapine 7.5 mg Tablet 7.5 mg PO BEDTIME Qty: 30 RF: 0 tizanidine 4 mg capsule 4 mg PO Q8H PRN (Reason: muscle spasticity) Qty: 30 RF: 0 quetiapine [Seroquel] 50 mg tablet 50 mg PO DAILY PRN (Reason: agitation) Qty: 14 RF: 1 furosemide 40 mg Tablet 40 mg PO DAILY Qty: 30 RF: 0 omeprazole 40 mg Capsule,Delayed Release(Dr/Ec) 40 mg PO DAILY Qty: 30 RF: 0 fluoxetine 20 mg capsule 40 mg PO DAILY Qty: 30 RF: 0 spironolactone 50 mg Tablet 50 mg PO DAILY Qty: 30 RF: 0 Narcan 4 mg/actuation spray,non-aerosol 4 mg intranasal Q2M PRN (Reason: opioid overdose) Qty: 2 RF: 0 Discharge Orders: Discharge Order (Routine); Ordered 05/29/20 Ordered By: Lynette Caceres Diet: advance to usual diet Activity on Discharge: As tolerated Stand Alone Forms: Community Support Visit Report Forms: Patient Portal Discharge page Care Plan Goals: patient plans to fu with outpatient providers, has 2 places he can stay with friend Amando or AA sponsor when he can reach- will come to [facility] and [facility] for needed supports Health Concerns: ongoing leg uclers and swelling- will need to fu with wound clinic Plan of Treatment: fu with [facility] and outpatient providers Discharge Date/Time: 05/29/20 15:30 Mental Status Exam Mental Status Exam Narrative: Mental Status Exam Mental Status Exam Patient Appearance: Disheveled Patient Orientation: Person, Place, Time and Situation Level of Consciousness: Awake Patient Behavior: Appropriate, Anxious and Resistive to Care Mood Description: Calm Affect Description: Calm Patient Cognition Impaired: Yes Ability to Follow Directions: Fair Speech Pattern: Slurred Memory Description: Alf Impaired Hallucinations: None Delusions: Not Present Thought Process: Intact Thought Content: positive for Intact Judgement: Fair Judgement and Insight: Patient appears to understand risk/benefits of leaving now vs sunday, has alternative plan in place for short term- and aware he will have to arrrange longer term. Denies drug/alcohol cravings per Dr. Fang caceres DS: Summary Hospital Course Hospital Course: HPI Chief Complaint: depression abdominal pain si Sources of Information: patient interviewed, chart reviewed and crisis/core team assessment reviewed HPI Narrative: [facility] by [facility] so crisis team in [place]. Patient had been at respite and prior to that had been at some point at [facility]. 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 Patient has had abdominal pain status post laminectomy was brought to the emergency room while at respite in while there talked about desire for suicide and thoughts to shoot himself. Room according to [facility] so the patient has been on fluoxetine Seroquel prazosin and clonazepam. He has been diagnosed with cirrhosis there is a history of intermittent opiate dependence. 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 Patient was last hospitalized on the psychiatric unit at [place] in February patient has a history of mood instability irritability substance use. There is a significant history of past suicide attempt. While hospitalized at [facility] on February the patient did have a a confusional syndrome was noted to have cerebrovascular disease. Past Psychiatric History: Multiple hospital stays - approximately 20 Most recent admission to August 2019. Most recent [facility], Alexey, November 2019 [facility] He has no current providers but has been seen by N in the past Medical Evaluation Reviewed: Hospitalist Jacobo Pending [facility] Medical History (Updated 05/10/20 @ 00:03 by Background Daemon) Anxiety Depression Diabetes HTN (hypertension) Suicidal ideations Narrative: Status post recent splenectomy reported history of hepatitis C reported history of cirrhosis Narrative: status post splenectomy Family History: Substance abuse in family members Social History: patient currently homeless had been living with his son previously He is on disability had been at [facility] Has spent extensive periods of time in [facility] prisons. Substance History: history of opiate use disorder mostly heroin use Trauma History: Extensive trauma as a child and in senior living HOSPITAL COURSE DISCHARGE DATE 05/29/2020 WHO THE PATIENT WAS ADMITTED ON A CONDITIONAL VOLUNTARY he refuses consideration of Suboxone or other medically assisted treatment . Patient was depressed anxious ruminating was afraid he could accidentally overdose and described intermittent severe depression anxiety and thoughts of self-harm. He eventually did consent to Suboxone and I did warn him regarding interactions with gabapentin clonazepam and Seroquel. Patient was restarted on Prozac which he states had been helpful to him refuse consideration of any alternative antidepressant trial. He the patient has a longstanding history of behavioral difficulty history of antisocial behavior. He had been in a [facility] facility but did not tolerate the structure. Patient did need particular help for wound care regarding his legs. The patient was eventually agreeable to restarting Suboxone his sensorium was significantly improved from previous admissions but he did have a hard time holding onto decision making and did tend to be impulsive and irritable. The patient eventually improved he was future oriented and stated here had arranged a discharge plan to live at his sponsors house. We could not confirm a specific discharge and patient needed to be referred to [facility] and we did strongly recommend a rest home setting where the patient would have a more structured environment given his medical psychiatric and substance abuse difficulties. We did have contact with his son who did not want to take any responsibility for h is father and we room unable to reach his reported sponsor. The patient was eventually discharged by Dr. Lynette Caceres on May 29 we did strongly encourage the patient to stay till a rest home referral could be made patient reported we would would follow up with the [facility] for Suboxone reportedly was future oriented see discharge plan for referrals Time Spent with Patient Time attestation: Total time spent providing and/or coordinating discharge services:
== END 2020-05-29 15:30 | disposition home or self-care (01) | DRG 751 ==
PROVIDERS: Admitting Provider Psychiatry & Neurology Psychiatry; Visit Provider Psychiatry & Neurology Psychiatry
DX: F32.2 Major depressive disorder, single episode, severe without psychotic features (principal); R45.851 Suicidal ideations; F11.20 Opioid dependence, uncomplicated; I69.91 Cognitive deficits following unspecified cerebrovascular disease; F43.10 Post-traumatic stress disorder, unspecified; L97.929 Non-pressure chronic ulcer of unspecified part of left lower leg with unspecified severity; L97.919 Non-pressure chronic ulcer of unspecified part of right lower leg with unspecified severity; I87.333 Chronic venous hypertension (idiopathic) with ulcer and inflammation of bilateral lower extremity; F17.210 Nicotine dependence, cigarettes, uncomplicated; Z71.6 Tobacco abuse counseling; Z59.0 Homelessness; Z88.5 Allergy status to narcotic agent; Z88.6 Allergy status to analgesic agent; Z79.899 Other long term (current) drug therapy
CPT/HCPCS: 36415; 80053; 85025; 90792; 97162; 99232; 99233; J0572; J0573

== ENCOUNTER 2020-06-13 16:24 | Inpatient (IN) | payer OTHER, SELFPAY ==
--- NOTE | 2020-06-13 16:35 | ED.PSYCH ---
HPI - Psych General Chief Complaint: Psychiatric Symptoms Stated Complaint: Crisis Time Seen by Provider: 06/13/20 16:33 Source: patient Mode of arrival: ambulatory Limitations: no limitations History of Present Illness HPI Narrative: 59 y/o male with history of major depression, history of SI, history of polysubstance abuse with accidental heroin OD complicated by seizure in Apr 2020, history of multiple inpatient and detox admissions who presents to the ER with thoughts of suicide with plan to shoot himself in the head. He states he owns guns and has access to them. He has been suicidal for years. He is a homeless with multiple medical issues and feels hopeless. He admits to continued heroin use, last yesterday. He reports worsening chronic bilateral LE wounds on his shins and he doesn't know how they got there. He was prescribed Amoxillin for them in Apr but stopped taking it. He also stopped taking all of his psych medications 2 days ago. MD complaint: suicidal ideation, feels depressed and substance abuse Onset (ago): year(s) Duration: intermittent History of same: Yes Relieving factors: medication and therapy Exacerbating factors: drug use Context: recent drug abuse, not taking psychiatric medications and significant life stressor Associated psychiatric symptoms: depression and suicidal ideation Associated symptoms: insomnia Treatments prior to arrival: none If self harm: admits thoughts of self harm and has plan Details of plan: shoot himself in the head Related Data Home Medications Medication Instructions Recorded Confirmed fluoxetine 40 mg PO DAILY 05/21/20 06/13/20 furosemide 40 mg PO DAILY 05/21/20 06/13/20 spironolactone 50 mg PO DAILY 05/21/20 06/13/20 gabapentin 400 mg PO TID 06/13/20 06/13/20 quetiapine 50 mg PO TID PRN 06/13/20 06/13/20 quetiapine 100 mg PO BEDTIME 06/13/20 06/13/20 Previous Rx's Medication Instructions Recorded omeprazole 40 mg PO DAILY #1 cap 03/22/20 tizanidine 4 mg PO Q4H PRN #1 tab 03/22/20 trazodone 50 mg PO BEDTIME PRN #1 tab 03/22/20 buprenorphine-naloxone [Suboxone] 1.5 film SUBLINGUAL BID 3 Days #9 05/29/20 ea lorazepam 1 mg PO TID PRN 3 Days #9 tab 05/29/20 Allergies Allergy/AdvReac Type Severity Reaction Status Date / Time acetaminophen [From TYLENOL] Allergy Unknown UNK Verified 05/05/20 21:10 codeine [CODEINE] Allergy Unknown RASH Verified 05/05/20 21:10 pneumococcal vaccine Allergy Unknown PARALYSIS Verified 05/05/20 21:10 [PNEUMOCOCCAL VACCINE] tuberculin, purified protein Allergy Unknown RASH Verified 05/05/20 21:10 deriva [TUBERCULIN, PURIFIED PROTEIN DERIVA] venlafaxine [From EFFEXOR] AdvReac Unknown UNKNOWN Verified 05/05/20 21:10 Review of Systems Review of Systems: Constitutional: No Fever, No Chills ENT/Mouth: No sore throat, No Rhinorrhea, No Swallowing Difficulty Eyes: No Eye Pain, No Swelling, No Redness Cardiovascular: No Chest Pain, No SOB, No Orthopnea, No Edema Respiratory: No Cough, No Sputum, No Wheezing, No dyspnea Gastrointestinal: No Nausea, No Vomiting, No Diarrhea, No abdominal Pain, No Hematochezia, No Melena Genitourinary: No Dysuria, No Urinary Frequency, No Hematuria Musculoskeletal: No joint pain, No Myalgias Skin: + Skin Lesions, No rash Neuro: No Weakness, No Numbness, No Dizziness, + Headache Psych: + Anxiety/Panic, + Depression Heme/Lymph: No Bruising, No Lymphadenopathy Endocrine: No Polyuria, No Polydipsia PMFSH Past Medical History Medical History (Updated 06/13/20 @ 19:55 by LIZETT Blackwell) Anxiety Depression Diet-controlled diabetes mellitus Hepatitis C virus HTN (hypertension) Liver cirrhosis Major depress dis, severe Neuropathy Suicidal ideations Venous stasis dermatitis Surgical History H/O splenectomy Hx of cholecystectomy S/P correction of deviated nasal septum Family History Family History (Updated 05/23/20 @ 11:42 by LIZETT Delgado) Father Diabetes Social History Social History (Updated 05/23/20 @ 11:43 by LIZETT Delgado) Housing: Homeless Alcohol intake: former Smoking Status: Current some day smoker Tobacco Type: Cigarette Packs Per Day: 1 Cigarettes Per Day: 20.0 Years Smoked: 40 Second Hand Smoke Exposure: Yes Substance Use Type: Heroin and Opiates Advance Directives: No Advance Directives Information Provided: Yes service: Yes Current occupational status: unemployed Sexual orientation: Decline to Answer Physical Exam Vital Signs: Vital Signs: Last Vital Signs Temp 98.7 F 06/13/20 16:39 Pulse 87 06/13/20 16:39 Resp 18 06/13/20 16:39 BP 188/99 H 06/13/20 16:39 Pulse Ox 96 06/13/20 16:39 Body Mass Index 29.8 Appearance: Alert. Oriented X3. Disheleved, tearful Eyes: Pupils equal, round and reactive to light. ENT: Pharynx normal. Neck: Normal inspection. Neck supple. CVS: RRR, no murmue Pulses normal. Respiratory: No respiratory distress. Breath sounds normal. Abdomen: Soft and nontender. +BS x4 Skin: Skin warm and dry. Normal skin color. Normal skin turgor. No rashes. Extremities: bilateral LE with tender wounds to anterior lower shins - left cirucular with ulceration and yellow granulation tissue, right is 5cm long with yellow granulation tissue. bilateral posterior calf tenderness with 1+ pitting edema bilaterally. compartments are soft. no surrounding erythema or warmth Neuro: Oriented X 3. No motor deficit. No sensory deficit. Psych: tearful, suicidal, poor insight, linear thought process Course Course Course Narrative: 59 y/o male well known to this ER for depression and SI presenting back with the same. Active heroin use s/p recent admission and recent detox. SI with plan - will need BHN and likely inpatient treatment. Bilateral LE wound acute on chronic - will check basic labs, blood cultures and LE dopplers to r/o DVT. Will treat with doxycycline and keflex, he is at risk for MRSA. Reevaluation(s) Reevaluation #1: No leukocytosis. Refusing blood cultures. Lab work showing acute on chronic LFT elevation - no abdominal pain, RUQ tenderness or N/V. MDM - Psych Lab Data Result diagrams: 06/13/20 18:10 06/13/20 18:10 Labs: Lab Results 06/13/20 06/13/20 06/13/20 Range/Units 16:59 16:59 18:10 WBC 5.2 (4.8-10.8) X10*3/uL RBC 3.85 L (4.60-5.80) X10*6/uL Hgb 11.6 L (14.0-18.0) g/dl Hct 35.4 L (42-52) % MCV 91.9 (80-98) fL MCH 30.1 (27.0-33.0) pg MCHC 32.8 (31.0-36.0) g/dl RDW 19.4 H (11.0-16.0) % Plt Count 314 (160-400) X10*3/uL MPV 10.3 (9.4-12.4) fL Immature Gran % (Auto) 0.2 (0.0-0.4) % Neut % (Auto) 39.0 L (45-73) % Lymph % (Auto) 42.5 H (20-40) % [place] % (Auto) 15.6 H (2-11) % Eos % (Auto) 1.9 (0-4) % Baso % (Auto) 0.8 (0-2) % Lymph # (Auto) 2.2 (1.2-4.9) X10*3/uL [place] # (Auto) 0.8 (0.1-1.2) X10*3/uL Eos # (Auto) 0.1 (0.0-0.4) X10*3/uL Baso # (Auto) 0.0 (0.0-0.2) X10*3/uL Abs Immat Gran (auto) 0.01 (0.00-0.03) X10*3/uL Absolute Neuts (auto) 2.0 (2.0-8.3) X10*3/uL Absolute Nucleated RBC 0.000 (0.0-0.012) X10*3/uL Nucleated RBC % (auto) 0.0 (0.0-0.2) /100WBC Sodium (135-145) mmol/L Potassium (3.3-5.1) mmol/l Chloride (96-108) mmol/L Carbon Dioxide (22-29) mmol/L Anion Gap (12-20) BUN (9-16) mg/dL Creatinine (0.5-1.4) mg/dL Estim Creat Clear Calc Estimated GFR Random Glucose (60-115) mg/dL Lactic Acid (0.5-2.0) mmol/L Calcium (8.4-10.2) mg/dL Magnesium (1.6-2.6) mg/dL Total Bilirubin (0.0-1.0) mg/dL Direct Bilirubin (0.0-0.5) mg/dL AST (5-37) U/L ALT (0-40) U/L Alkaline Phosphatase (39-117) U/L Total Protein (6.5-8.0) g/dL Albumin (3.5-5.0) g/dL Urine Color DARK YELLOW Urine Appearance CLEAR Urine pH 6.5 (5.0-8.0) Ur Specific [place] 1.020 (1.005-1.025) Urine Protein NEG (NEG-TRACE) MG/DL Urine Glucose (UA) NEG (NEG) MG/DL Urine Ketones NEG (NEG) MG/DL Urine Blood NEG (NEG) Urine Nitrite NEG (NEG) Ur Leukocyte Esterase NEG (NEG) Urine Opiates Screen POSITIVE H (Not Detect) Ur Barbiturates Screen Not Detected (Not Detect) Ur Phencyclidine Scrn Not Detected (Not Detect) Ur Amphetamines Screen Not Detected (Not Detect) U Benzodiazepines Scrn Not Detected (Not Detect) Urine Cocaine Screen Not Detected (Not Detect) U Marijuana (THC) Screen Not Detected (Not Detect) Ethyl Alcohol mg/dL COVID-19 ([facility]) (Negative) COVID-19 Clin Com 06/13/20 06/13/20 06/13/20 Range/Units 18:10 18:10 18:10 WBC (4.8-10.8) X10*3/uL RBC (4.60-5.80) X10*6/uL Hgb (14.0-18.0) g/dl Hct (42-52) % MCV (80-98) fL MCH (27.0-33.0) pg MCHC (31.0-36.0) g/dl RDW (11.0-16.0) % Plt Count (160-400) X10*3/uL MPV (9.4-12.4) fL Immature Gran % (Auto) (0.0-0.4) % Neut % (Auto) (45-73) % Lymph % (Auto) (20-40) % [place] % (Auto) (2-11) % Eos % (Auto) (0-4) % Baso % (Auto) (0-2) % Lymph # (Auto) (1.2-4.9) X10*3/uL [place] # (Auto) (0.1-1.2) X10*3/uL Eos # (Auto) (0.0-0.4) X10*3/uL Baso # (Auto) (0.0-0.2) X10*3/uL Abs Immat Gran (auto) (0.00-0.03) X10*3/uL Absolute Neuts (auto) (2.0-8.3) X10*3/uL Absolute Nucleated RBC (0.0-0.012) X10*3/uL Nucleated RBC % (auto) (0.0-0.2) /100WBC Sodium 142 (135-145) mmol/L Potassium 4.3 (3.3-5.1) mmol/l Chloride 108 (96-108) mmol/L Carbon Dioxide 28 (22-29) mmol/L Anion Gap 10 L (12-20) BUN 11 D (9-16) mg/dL Creatinine 0.73 (0.5-1.4) mg/dL Estim Creat Clear Calc 131.6 Estimated GFR > 60 Random Glucose 135 H D (60-115) mg/dL Lactic Acid (0.5-2.0) mmol/L Calcium 8.5 (8.4-10.2) mg/dL Magnesium 2.0 (1.6-2.6) mg/dL Total Bilirubin 0.9 (0.0-1.0) mg/dL Direct Bilirubin 0.7 H (0.0-0.5) mg/dL AST 121 H (5-37) U/L ALT 69 H (0-40) U/L Alkaline Phosphatase 327 H D (39-117) U/L Total Protein 7.2 (6.5-8.0) g/dL Albumin 3.0 L (3.5-5.0) g/dL Urine Color Urine Appearance Urine pH (5.0-8.0) Ur Specific [place] (1.005-1.025) Urine Protein (NEG-TRACE) MG/DL Urine Glucose (UA) (NEG) MG/DL Urine Ketones (NEG) MG/DL Urine Blood (NEG) Urine Nitrite (NEG) Ur Leukocyte Esterase (NEG) Urine Opiates Screen (Not Detect) Ur Barbiturates Screen (Not Detect) Ur Phencyclidine Scrn (Not Detect) Ur Amphetamines Screen (Not Detect) U Benzodiazepines Scrn (Not Detect) Urine Cocaine Screen (Not Detect) U Marijuana (THC) Screen (Not Detect) Ethyl Alcohol < 10 mg/dL COVID-19 ([facility]) Negative (Negative) COVID-19 Clin Com See Note 06/13/20 Range/Units 18:10 WBC (4.8-10.8) X10*3/uL RBC (4.60-5.80) X10*6/uL Hgb (14.0-18.0) g/dl Hct (42-52) % MCV (80-98) fL MCH (27.0-33.0) pg MCHC (31.0-36.0) g/dl RDW (11.0-16.0) % Plt Count (160-400) X10*3/uL MPV (9.4-12.4) fL Immature Gran % (Auto) (0.0-0.4) % Neut % (Auto) (45-73) % Lymph % (Auto) (20-40) % [place] % (Auto) (2-11) % Eos % (Auto) (0-4) % Baso % (Auto) (0-2) % Lymph # (Auto) (1.2-4.9) X10*3/uL [place] # (Auto) (0.1-1.2) X10*3/uL Eos # (Auto) (0.0-0.4) X10*3/uL Baso # (Auto) (0.0-0.2) X10*3/uL Abs Immat Gran (auto) (0.00-0.03) X10*3/uL Absolute Neuts (auto) (2.0-8.3) X10*3/uL Absolute Nucleated RBC (0.0-0.012) X10*3/uL Nucleated RBC % (auto) (0.0-0.2) /100WBC Sodium (135-145) mmol/L Potassium (3.3-5.1) mmol/l Chloride (96-108) mmol/L Carbon Dioxide (22-29) mmol/L Anion Gap (12-20) BUN (9-16) mg/dL Creatinine (0.5-1.4) mg/dL Estim Creat Clear Calc Estimated GFR Random Glucose (60-115) mg/dL Lactic Acid 1.9 (0.5-2.0) mmol/L Calcium (8.4-10.2) mg/dL Magnesium (1.6-2.6) mg/dL Total Bilirubin (0.0-1.0) mg/dL Direct Bilirubin (0.0-0.5) mg/dL AST (5-37) U/L ALT (0-40) U/L Alkaline Phosphatase (39-117) U/L Total Protein (6.5-8.0) g/dL Albumin (3.5-5.0) g/dL Urine Color Urine Appearance Urine pH (5.0-8.0) Ur Specific [place] (1.005-1.025) Urine Protein (NEG-TRACE) MG/DL Urine Glucose (UA) (NEG) MG/DL Urine Ketones (NEG) MG/DL Urine Blood (NEG) Urine Nitrite (NEG) Ur Leukocyte Esterase (NEG) Urine Opiates Screen (Not Detect) Ur Barbiturates Screen (Not Detect) Ur Phencyclidine Scrn (Not Detect) Ur Amphetamines Screen (Not Detect) U Benzodiazepines Scrn (Not Detect) Urine Cocaine Screen (Not Detect) U Marijuana (THC) Screen (Not Detect) Ethyl Alcohol mg/dL COVID-19 ([facility]) (Negative) COVID-19 Clin Com Discharge Plan Discharge Clinical Impression: Suicidal ideation Prescriptions: No Action trazodone 50 mg Tablet 50 mg PO BEDTIME PRN (Reason: Insomnia) Qty: 1 RF: 0 tizanidine 4 mg Tablet 4 mg PO Q4H PRN (Reason: Muscle Spasm) Qty: 1 RF: 0 omeprazole 40 mg Capsule,Delayed Release(Dr/Ec) 40 mg PO DAILY Qty: 1 RF: 0 fluoxetine 20 mg capsule 40 mg PO DAILY RF: 0 furosemide 40 mg Tablet 40 mg PO DAILY RF: 0 spironolactone 50 mg Tablet 50 mg PO DAILY RF: 0 buprenorphine-naloxone [Suboxone] 4-1 mg film 1.5 film sublingual BID 3 Days Qty: 9 RF: 0 lorazepam 1 mg tablet 1 mg PO TID PRN (Reason: anxiety) 3 Days Qty: 9 RF: 0 quetiapine 100 mg Tablet 100 mg PO BEDTIME RF: 0 quetiapine 50 mg Tablet 50 mg PO TID PRN (Reason: Agitation) RF: 0 gabapentin 400 mg Tablet 400 mg PO TID RF: 0
[2020-06-13 16:39] VITALS: BP 188/99; PULSE 87; RESP 18; TEMP 37.1; O2SAT 96; BMI 29.8
--- NOTE | 2020-06-13 17:13 | US_ITS ---
EXAMINATION: US VENOUS ULTRASOUND WITH DOPPLER LOWER EXTREMITY, BILATERAL CLINICAL INFORMATION: Swelling pain COMPARISON: None TECHNIQUE: Ultrasound of the deep veins is performed from the hip to the calf with compression sonography and color and pulse Doppler assessment. Spectral analysis with color-flow imaging is performed. FINDINGS: RIGHT: There is normal venous compression and respiratory variation and augmented flow. The visualized common femoral vein, superficial femoral vein, profunda femoral vein, popliteal vein, and the trifurcation region shows no evidence of deep venous thrombosis. There is no significant popliteal fossa cyst. LEFT: There is normal venous compression and respiratory variation and augmented flow. The visualized common femoral vein, superficial femoral vein, profunda femoral vein, popliteal vein, and the trifurcation region shows no evidence of deep venous thrombosis. There is no significant popliteal fossa cyst. If the patient's symptoms persist, followup ultrasound in 5 days 7 days might be of value to exclude proximal propagation from a non-visualized calf vein. US/US venous duplex LE BI IMPRESSION: No DVT demonstrated in bilateral lower extremity.
[2020-06-13 17:16] LABS: Glucose Urine UA NEG (NEG); Leukocyte Esterase Urine NEG (NEG); Nitrite Urine NEG (NEG); PH 6.5 (5.0-8.0); Urine Blood NEG (NEG); Urine Ketones NEG (NEG); Urine Protein NEG (NEG-TRACE)
[2020-06-13 17:22] LABS: Appearance Urine CLEAR; Color Urine DARK YELLOW
[2020-06-13] MEDS: cephALEXin 500 MG CAPSULE PO ×2 (17:27→22:52)
[2020-06-13 17:38] LABS: Amphetamine Screen Urine Not Detected (Not Detect); Barbiturates, Urine Not Detected (Not Detect); Benzodiazepines Screen Urine Not Detected (Not Detect); Cannabinoid Screen Urine Not Detected (Not Detect); Cocaine Screen Urine Not Detected (Not Detect); Opiate Screen Urine POSITIVE (Not Detect); Phencyclidine Screen Urine Not Detected (Not Detect)
[2020-06-13 18:18] LABS: MANUAL DIFF FLAG NO
--- NOTE | 2020-06-13 18:21 | PC.NURSE ---
Patient compliant with Ultra sound/lab draws/covid swab, pending results. Ate 25% of supper, denied distress, med rec completed/pending MAR update, will continue to monitor.
[2020-06-13 18:22] LABS: Basophils Percent Auto 0.8 % (0-2); Eosinophils Absolute Auto 0.1 X10*3/uL (0.0-0.4); Eosinophils Percent Auto 1.9 % (0-4); Hematocrit 35.4 % (42-52); Hemoglobin 11.6 g/dl (14.0-18.0); Imm Gran Abs Auto 0.01 X10*3/uL (0.00-0.03); Imm Gran Pct Auto 0.2 % (0.0-0.4); Lymphocytes Absolute Auto 2.2 X10*3/uL (1.2-4.9); Lymphocytes Percent Auto 42.5 % (20-40); Mean Corpuscular HGB Conc 32.8 g/dl (31.0-36.0); Mean Corpuscular Hemoglobin 30.1 pg (27.0-33.0); Mean Corpuscular Volume 91.9 fL (80-98); Mean Platelet Volume 10.3 fL (9.4-12.4); Monocytes Absolute Auto 0.8 X10*3/uL (0.1-1.2); Monocytes Percent Auto 15.6 % (2-11); Platelet Count 314 X10*3/uL (160-400); Red Blood Count 3.85 X10*6/uL (4.60-5.80); Red Cell Distribution Width 19.4 % (11.0-16.0); White Blood Count 5.2 X10*3/uL (4.8-10.8)
[2020-06-13 18:37] LABS: COVID-19 Test Negative (Negative)
[2020-06-13 18:42] LABS: Ethanol < 10 mg/dL
[2020-06-13 18:43] LABS: Lactic Acid 1.9 mmol/L (0.5-2.0)
[2020-06-13 18:49] LABS: Alanine Aminotransferase 69 U/L (0-40); Alkaline Phosphatase 327 U/L (39-117); Anion Gap 10 (12-20); Aspartate Amino Transferase 121 U/L (5-37); Bilirubin Direct 0.7 mg/dL (0.0-0.5); Bilirubin Total 0.9 mg/dL (0.0-1.0); Blood Urea Nitrogen 11 mg/dL (9-16); Calcium 8.5 mg/dL (8.4-10.2); Carbon Dioxide 28 mmol/L (22-29); Chloride 108 mmol/L (96-108); Creatinine Clr Calc Pharmacy 131.6; Estimated Glomerular Filt Rate > 60; Glucose Random 135 mg/dL (60-115); Potassium 4.3 mmol/l (3.3-5.1); Sodium 142 mmol/L (135-145); Total Protein 7.2 g/dL (6.5-8.0)
--- NOTE | 2020-06-13 18:50 | PC.NURSE ---
I TRIED TO DRAW BLOOD CULTURE WITH NO SUCCESS ,THEN PATIENT REFUSED TO BE STUCK AGAIN ,SAID LEAVE IT FOR LATER ,CLAUDE JAIN AWARE .
[2020-06-13] MEDS: TiZANidine HCL 4 MG TABLET PO ×2 (18:51→22:52)
[2020-06-13] MEDS: QUEtiapine Fumarate 100 MG TABLET PO (20:15)
[2020-06-13] MEDS: traZODone HCL 50 MG TABLET PO (20:15)
[2020-06-13] MEDS: QUEtiapine Fumarate 50 MG TABLET PO (20:15)
[2020-06-13] MEDS: Gabapentin 400 MG CAPSULE PO (20:15)
[2020-06-13 20:19] VITALS: BP 106/73; PULSE 60; RESP 18; TEMP 36.5; O2SAT 96
--- NOTE | 2020-06-13 21:44 | PC.NURSE ---
Patient compliant with his HS PO medication, currently in his room appears sleeping, no distress reported, will continue to monitor.
--- NOTE | 2020-06-14 03:15 | PC.NURSE ---
DENI completed assessment, patient compliant, patient disposition is section 12 in-patient bed search, patient is in his bed lying, seems resting, no distress reported, will continue to monitor.
[2020-06-14] MEDS: cephALEXin 500 MG CAPSULE PO ×4 (05:31→22:49)
[2020-06-14 06:00] VITALS: RESP 16
--- NOTE | 2020-06-14 06:11 | PC.NURSE ---
Patient slept well, out of room 2 times for bathroom use and back, compliant with 0530 keflex and doxy/administered as ordered, denied distress, will continue to monitor.
--- NOTE | 2020-06-14 07:03 | PC.NURSE ---
Report recieved. Pt currently sleeping, respirations even and unlabored, in no apparent distress. Pt is inpatient bedsearch.
[2020-06-14 09:15] VITALS: BP 111/67; PULSE 66; RESP 18; TEMP 36.2; O2SAT 96
[2020-06-14 09:30] VITALS: BP 111/67; PULSE 66
[2020-06-14] MEDS: Omeprazole 40 MG CAPSULE.DR PO (09:30)
[2020-06-14] MEDS: FLUoxetine HCl 20 MG CAPSULE 40 MG PO (09:30)
[2020-06-14] MEDS: Gabapentin 400 MG CAPSULE PO ×3 (09:30→21:01)
[2020-06-14] MEDS: Furosemide 40 MG TABLET PO (09:30)
[2020-06-14] MEDS: Spironolactone 25 MG TABLET 50 MG PO (09:30)
[2020-06-14] MEDS: LORazepam 1 MG TABLET PO ×2 (11:14→21:06)
[2020-06-14] MEDS: QUEtiapine Fumarate 50 MG TABLET PO (13:16)
[2020-06-14] MEDS: TiZANidine HCL 4 MG TABLET PO ×2 (13:16→21:01)
--- NOTE | 2020-06-14 19:27 | PC.NURSE ---
Report received. PT is resting in bed. Calm and cooperative. [facility]N is here for [facility].
[2020-06-14 20:33] VITALS: BP 130/77; PULSE 67; RESP 20; TEMP 36.6; O2SAT 99
[2020-06-14] MEDS: QUEtiapine Fumarate 100 MG TABLET PO (21:01)
[2020-06-14 23:58] VITALS: BP 112/67; RESP 16; TEMP 36.4; O2SAT 96
[2020-06-15] VITALS (8 sets, daily range): BP systolic 74–155; BP diastolic 46–97; PULSE 49–84; RESP 14–18; TEMP 36.2–36.6; O2SAT 96–97
--- NOTE | 2020-06-15 | ECG_ITS ---
Test Reason : CLEARANCE Blood Pressure : / mmHG Vent. Rate : 053 BPM Atrial Rate : 053 BPM P-R Int : 156 ms QRS Dur : 088 ms QT Int : 514 ms P-R-T Axes : 002 048 041 degrees QTc Int : 482 ms Sinus bradycardia Prolonged QT Abnormal ECG When compared with ECG of 02-MAY-2020 21:23, Vent. rate has decreased BY 63 BPM Referred By: Theodora Waite Electronically Signed By:MUKESH HUGHES
[2020-06-15] MEDS: cephALEXin 500 MG CAPSULE PO ×4 (06:07→23:27)
[2020-06-15] MEDS: TiZANidine HCL 4 MG TABLET PO ×3 (06:07→20:01)
--- NOTE | 2020-06-15 07:10 | PC.NURSE ---
Report received. pt currently eating breakfast, calm and cooperative. Pt remains inpatient bedsearch.
--- NOTE | 2020-06-15 09:03 | PC.NURSE ---
Pt BP 87/50, pt given fluids, encouraged to move around, BP on recheck 76/46. Provider notified. Pt given pitcher of water and sandwich, medications held at this time. Will recheck vitals and update provider.
--- NOTE | 2020-06-15 09:37 | PC.NURSE ---
Blood pressure on recheck -123/56, provider notified.
[2020-06-15] MEDS: Omeprazole 40 MG CAPSULE.DR PO (09:56)
[2020-06-15] MEDS: FLUoxetine HCl 20 MG CAPSULE 40 MG PO (09:56)
[2020-06-15] MEDS: LORazepam 1 MG TABLET PO ×2 (11:53→20:01)
[2020-06-15] MEDS: Gabapentin 400 MG CAPSULE PO ×2 (14:38→20:00)
[2020-06-15] MEDS: QUEtiapine Fumarate 50 MG TABLET PO (14:39)
--- NOTE | 2020-06-15 19:28 | PC.NURSE ---
Report received. PT is resting in bed. Calm and cooperative. Waiting to be transferred to .
[2020-06-15] MEDS: QUEtiapine Fumarate 100 MG TABLET PO (20:01)
--- NOTE | 2020-06-15 21:56 | PC.ADMIT ---
this is one of many admissions for this 59 year old male. legal cv. dx mdd, opioid use disorder. patient was recently discharged from and did not f/u with outpatient appointments. patient had appointments including psychiatry services, pcp and at suboxone clinic. when questioned as to why he did not go stated ''I just didn't'' ''things are hard for me'' reports relapse with heroin. ''i just sniffed a little'' reports having thoughts to shoot self stating ''i know people who have guns'' denied si thoughts currently stating ''i feel safe here, i know everyone'' reports being homeless and staying at his sons home or friends. no change to previous medical issues and wounds on bilateral legs continue to worsen as he has not followed thru with treatment providers or care for wounds. wound consult placed. antibiotic started in the emergency room. areas appear to be stage 3, drainage noted. covered with simple dsd until seen by wound clinic. when questioned about falls stated ''i fell a long time ago that's why my legs are like this'' when questioned about other falls, denied. when asked if he needed care for ambulation stated ''when i'm outside i walk everywhere when i can't get a ride'' ''i get around'' some irritability noted during admission process. reports he smokes when he can ''bum cigarettes'' denies alcohol use. declined need for flu shot reporting 'i'm allergic to it''
[2020-06-16 00:22] VITALS: BP 84/52; PULSE 59; RESP 16; TEMP 36.5; O2SAT 99
[2020-06-16 05:55] VITALS: BP 122/69; PULSE 65; RESP 18; TEMP 36.7; O2SAT 97
[2020-06-16] MEDS: cephALEXin 500 MG CAPSULE PO ×3 (05:56→17:21)
[2020-06-16 08:44] LABS: Basophils Percent Auto 0.5 % (0-2); Eosinophils Absolute Auto 0.4 X10*3/uL (0.0-0.4); Eosinophils Percent Auto 4.7 % (0-4); Hematocrit 34.2 % (42-52); Hemoglobin 11.1 g/dl (14.0-18.0); Imm Gran Abs Auto 0.01 X10*3/uL (0.00-0.03); Imm Gran Pct Auto 0.1 % (0.0-0.4); Lymphocytes Absolute Auto 3.6 X10*3/uL (1.2-4.9); Lymphocytes Percent Auto 47.3 % (20-40); MANUAL DIFF FLAG SCAN; Mean Corpuscular HGB Conc 32.5 g/dl (31.0-36.0); Mean Corpuscular Hemoglobin 29.7 pg (27.0-33.0); Mean Corpuscular Volume 91.4 fL (80-98); Mean Platelet Volume 10.6 fL (9.4-12.4); Monocytes Absolute Auto 1.5 X10*3/uL (0.1-1.2); Monocytes Percent Auto 20.5 % (2-11); Neutrophils Percent Auto 26.9 % (45-73); Platelet Count 326 X10*3/uL (160-400); Red Blood Count 3.74 X10*6/uL (4.60-5.80); Red Cell Distribution Width 19.4 % (11.0-16.0); SCAN SMEAR FLAG 1; White Blood Count 7.5 X10*3/uL (4.8-10.8)
[2020-06-16 09:12] LABS: Alanine Aminotransferase 56 U/L (0-40); Albumin Level 2.8 g/dL (3.5-5.0); Alkaline Phosphatase 292 U/L (39-117); Anion Gap 8 (12-20); Aspartate Amino Transferase 106 U/L (5-37); Bilirubin Total 0.5 mg/dL (0.0-1.0); Blood Urea Nitrogen 23 mg/dL (9-16); Calcium 8.5 mg/dL (8.4-10.2); Carbon Dioxide 31 mmol/L (22-29); Chloride 106 mmol/L (96-108); Cholesterol 117 mg/dL; Creatinine Clr Calc Pharmacy 137.2; Estimated Glomerular Filt Rate > 60; Glucose Fasting 78 mg/dL (60-99); HDL Cholesterol 50 mg/dL; LDL Cholesterol Calculated 60 mg/dl; Potassium 4.6 mmol/l (3.3-5.1); Sodium 140 mmol/L (135-145); Total Protein 6.8 g/dL (6.5-8.0); Triglycerides 37 mg/dL
[2020-06-16] MEDS: FLUoxetine HCl 20 MG CAPSULE 40 MG PO (09:22)
[2020-06-16] MEDS: Gabapentin 400 MG CAPSULE PO ×3 (09:23→20:54)
[2020-06-16] MEDS: Furosemide 40 MG TABLET PO (09:23)
[2020-06-16] MEDS: Omeprazole 40 MG CAPSULE.DR PO (09:23)
[2020-06-16 09:26] VITALS: BP 122/69; PULSE 65
[2020-06-16] MEDS: Spironolactone 25 MG TABLET 50 MG PO (09:26)
[2020-06-16 09:33] LABS: Thyroid Stimulating Hormone 2.06 uIU/mL (0.32-4.0)
[2020-06-16 09:41] LABS: Folate 12.4 ng/mL (> or = 4.0); Vitamin B12 499 pg/mL (200-900)
[2020-06-16] MEDS: TiZANidine HCL 4 MG TABLET PO ×2 (09:43→21:00)
[2020-06-16 10:33] LABS: SLIDE REVIEW VERIFIED
[2020-06-16] MEDS: LORazepam 0.5 MG TABLET PO ×2 (14:23→21:00)
[2020-06-16 16:23] VITALS: BP 118/69; PULSE 67; TEMP 36.6
--- NOTE | 2020-06-16 17:35 | HO.PSYADMNOT ---
HPI Chief Complaint: SI Sources of Information: patient interviewed, chart reviewed and crisis/core team assessment reviewed HPI Narrative: 59 yo male, homeless, presents with SI with a plan to shoot himself. UTox + opiates. Reports an increase in depressive symptoms. Precipitants: Homelessness, Current leg wounds that are causing pain. Past Psychiatric History: Multiple hospital stays - approximately 20 Most recent admission to August 2019. Most recent IPLOC, [place], November 2019 OCT [facility] He has no current providers but has been seen by N in the past Medical Evaluation Reviewed: Yes [facility] Medical History (Updated 06/16/20 @ 18:02 by Ny Estes MD) Anxiety Depression Diet-controlled diabetes mellitus Hepatitis C virus HTN (hypertension) Liver cirrhosis Major depress dis, severe Neuropathy Suicidal ideations Venous stasis dermatitis Surgical History H/O splenectomy Hx of cholecystectomy S/P correction of deviated nasal septum Family History: Substance abuse in family members Social History: patient currently homeless had been living with his son previously He is on disability had been at [employer] Has spent extensive periods of time in [facility] prisons. Trauma History: Extensive trauma as a child and in retirement Diagnostics Vital Signs (24Hr): Vital Signs - 24 hr 06/15/20 20:40 06/15/20 23:31 06/16/20 00:22 Temperature 97.8 F 97.4 F 97.7 F Pulse Rate 61 63 59 Respiratory Rate 16 16 Blood Pressure 82/50 L 84/55 L 84/52 L Pulse Oximetry 99 06/16/20 05:55 06/16/20 09:26 06/16/20 16:23 Temperature 98.1 F 97.9 F Pulse Rate 65 65 67 Respiratory Rate 18 Blood Pressure 122/69 122/69 118/69 Pulse Oximetry 97 Body Mass Index 29.8 Labs Results: 06/16/20 07:41 06/16/20 07:42 Labs: Laboratory Results - last 48 hr 06/16/20 06/16/20 06/16/20 07:41 07:42 07:42 WBC 7.5 RBC 3.74 L Hgb 11.1 L Hct 34.2 L MCV 91.4 MCH 29.7 MCHC 32.5 RDW 19.4 H Plt Count 326 MPV 10.6 Immature Gran % (Auto) 0.1 Neut % (Auto) 26.9 L Lymph % (Auto) 47.3 H [place] % (Auto) 20.5 H Eos % (Auto) 4.7 H Baso % (Auto) 0.5 Lymph # (Auto) 3.6 [place] # (Auto) 1.5 H Eos # (Auto) 0.4 Baso # (Auto) 0.0 Abs Immat Gran (auto) 0.01 Absolute Neuts (auto) 2.0 Absolute Nucleated RBC 0.000 Nucleated RBC % (auto) 0.0 Smear Tech's Comments VERIFIED Sodium 140 Potassium 4.6 Chloride 106 Carbon Dioxide 31 H Anion Gap 8 L BUN 23 H D Creatinine 0.70 Estim Creat Clear Calc 137.2 Estimated GFR > 60 Fasting Glucose 78 Calcium 8.5 Total Bilirubin 0.5 AST 106 H ALT 56 H Alkaline Phosphatase 292 H Total Protein 6.8 Albumin 2.8 L Triglycerides 37 Cholesterol 117 LDL Cholesterol, Calc 60 HDL Cholesterol 50 D Vitamin B12 499 Folate 12.4 TSH 2.06 Imaging Radiology Impressions: ITS Impressions Venous Duplex 06/13/20 17:13 IMPRESSION: No DVT demonstrated in bilateral lower extremity. Meds/Allergies Meds Home Medications Cephalexin HCl (Cephalexin 500 Mg Capsule) 500 mg PO Q6H [facility] Stop: 06/23/20 17:16 Last Admin: 06/17/20 11:20 Dose: 500 mg Documented by: Doxycycline Hyclate (Doxycycline Hyclate 100 Mg Tablet) 100 mg PO Q12H [facility] Last Admin: 06/17/20 08:38 Dose: 100 mg Documented by: Fluoxetine HCl (Fluoxetine Hcl 20 Mg Capsule) 40 mg PO DAILY [facility] Last Admin: 06/17/20 08:38 Dose: 40 mg Documented by: Furosemide (Furosemide 40 Mg Tablet) 40 mg PO DAILY [facility]; Protocol Last Admin: 06/17/20 08:38 Dose: 40 mg Documented by: Gabapentin (Gabapentin 400 Mg Capsule) 400 mg PO TID [facility] Last Admin: 06/17/20 15:01 Dose: 400 mg Documented by: Hydroxyzine HCl (Hydroxyzine Hcl 25 Mg Tablet) 25 mg PO BEDTIME PRN PRN Reason: Anxiety Last Admin: 06/17/20 02:57 Dose: 25 mg Documented by: Lorazepam (Lorazepam 0.5 Mg Tablet) 0.5 mg PO TID PRN PRN Reason: anxiety Last Admin: 06/17/20 13:09 Dose: 0.5 mg Documented by: Magnesium Hydroxide (Milk Of Magnesia 30 Ml Oral.Susp) 30 ml PO DAILY PRN PRN Reason: Constipation Omeprazole (Omeprazole 40 Mg Capsule.Dr) 40 mg PO DAILY [facility] Last Admin: 06/17/20 08:40 Dose: 40 mg Documented by: Quetiapine Fumarate (Quetiapine Fumarate 100 Mg Tablet) 100 mg PO BEDTIME [facility] Last Admin: 06/16/20 20:54 Dose: 100 mg Documented by: Spironolactone (Spironolactone 25 Mg Tablet) 50 mg PO DAILY [facility]; Protocol Last Admin: 06/17/20 08:38 Dose: 50 mg Documented by: Tizanidine HCl (Tizanidine Hcl 4 Mg Tablet) 4 mg PO Q6H PRN PRN Reason: muscle spasm Last Admin: 06/17/20 13:06 Dose: 4 mg Documented by: Trazodone HCl (Trazodone Hcl 50 Mg Tablet) 50 mg PO BEDTIME PRN PRN Reason: Insomnia Allergies Allergies Allergy/AdvReac Type Severity Reaction Status Date / Time acetaminophen [From TYLENOL] Allergy Unknown UNK Verified 05/05/20 21:10 codeine [CODEINE] Allergy Unknown RASH Verified 05/05/20 21:10 pneumococcal vaccine Allergy Unknown PARALYSIS Verified 05/05/20 21:10 [PNEUMOCOCCAL VACCINE] tuberculin, purified protein Allergy Unknown RASH Verified 05/05/20 21:10 deriva [TUBERCULIN, PURIFIED PROTEIN DERIVA] venlafaxine [From EFFEXOR] AdvReac Unknown UNKNOWN Verified 05/05/20 21:10 Mental Status Exam Mental Status Exam Patient Appearance: Fatigued Patient Orientation: Person, Place, Time and Situation Level of Consciousness: Alert Patient Behavior: Talkative, Passive, Fearful, Fatigued and Crying Mood Description: Withdrawn and Depressed Affect Description: Depressed Patient Cognition Impaired: No Ability to Follow Directions: Good Speech Pattern: Spontaneous Speech Memory Description: Intact Hallucinations: None Delusions: Not Present Thought Process: Distracted and Rumination Thought Content: positive for [place] and positive for Circumstantial Depressive Symptoms: Increased Anxiety, Diff. Making Decisions, Difficulty Sleeping, Loss of Int. in Activity, Feelings of Worthlessness, Hopelessness, Unhappiness, Low Self Esteem and Loss of Energy Judgement: Fair Assessment & Plan Assessment & Plan (1) Opioid use disorder, moderate, in controlled environment: Status: Acute Code(s): F11.20 - Opioid dependence, uncomplicated (2) Cerebral microvascular disease: Status: Acute Code(s): I67.89 - Other cerebrovascular disease Assessment and Plan: Re-establish regime and titrate/taper for maximum efficacy (3) Depression: Status: Acute Code(s): F32.9 - Major depressive disorder, single episode, unspecified Assessment and Plan: -Continue current regime, pt reports efficacy (4) Chronic venous hypertension (idiopathic) with ulcer of left lower extremity: Status: Acute Code(s): I87.312 - Chronic venous hypertension (idiopathic) with ulcer of left lower extremity; L97.929 - Non-pressure chronic ulcer of unspecified part of left lower leg with unspecified severity Assessment and Plan: -Wound Center consult for treatment Patient educated on: medication risk/benefits, substance abuse, therapeutic strategies and medical condition Informed Consent: understands and further education needed Reason for continued inpatient stay Substantial Risk for: harm to self, inability to function, rapid decompensation and med/psych decompensation
--- NOTE | 2020-06-16 17:51 | P.CONIM_ITS ---
History of Present Illness Data of Consult Service Date: 06/16/20 Primary Care Provider: Unknown Physician LIZETT Charlton consult to wound care HPI Reason for consult: Bilateral lower extremity wounds The patient is a 59-year-old that who has had issues with substance abuse significant heroin addiction suicidal behavior who came in with an overdose in April and who is been living [address] for the last several weeks. He came in several days ago to the emergency room saying that he felt like he wanted to kill himself and that he had access to guns. He was admitted to the psych floor. Here with treatment it was noted that he had bilateral lower extremity wounds that were consistent with venous stasis wounds. The patient says that he has had these wounds treated in the past and has had issues with blood clot to his lower extremities and as result lower extremity swelling. He is uncertain to how long these wounds have currently been in place. They have been very sort to him. He has not used any dressings for them. He has recently been started on Keflex while in the hospital for the cellulitis Review of Systems Review of Systems: Constitutional: No Fever, No Chills ENT/Mouth: No sore throat, No Rhinorrhea, No Swallowing Difficulty Eyes: No Eye Pain, No Swelling, No Redness Cardiovascular: No Chest Pain, No SOB, No Orthopnea, No Edema Respiratory: No Cough, No Sputum, No Wheezing, No dyspnea Gastrointestinal: No Nausea, No Vomiting, No Diarrhea, No abdominal Pain, No Hematochezia, No Melena Genitourinary: No Dysuria, No Urinary Frequency, No Hematuria Musculoskeletal: No joint pain, No Myalgias Skin: + Skin Lesions, No rash Neuro: No Weakness, No Numbness, No Dizziness, + Headache Psych: + Anxiety/Panic, + Depression Heme/Lymph: No Bruising, No Lymphadenopathy Endocrine: No Polyuria, No Polydipsia [facility] Medical History (Updated 06/16/20 @ 18:02 by Ny Estes MD) Anxiety Depression Diet-controlled diabetes mellitus Hepatitis C virus HTN (hypertension) Liver cirrhosis Major depress dis, severe Neuropathy Suicidal ideations Venous stasis dermatitis Family History Father Diabetes Surgical History H/O splenectomy Hx of cholecystectomy S/P correction of deviated nasal septum Social History Household Members: None Housing: Homeless Do you presently have visiting nurse or other home services: No Alcohol intake: former Smoking Status: Current some day smoker Tobacco Type: Cigarette Packs Per Day: 1 Cigarettes Per Day: 10 Years Smoked: 40 Smoked in Last 30 Days: Yes Patient Interested in Nicotine Replacement: Yes Patient Given Instructions on How to Stop Smoking: No Second Hand Smoke Exposure: Yes Use of substances other than those prescribed or required for medical reasons: Yes Substance Use Type: Heroin Substance Use Frequency: Chronic Longstanding Last Used Substance: Days (ago) Last Used Substance Other:: sniffed heroin prior to arrival to er 06/13/20 Currently Displaying Signs/Symptoms of Drug Intoxication Withdrawal: No Any prior treatment program specific to substance use: Yes Have you been hit, kicked, punched, or otherwise hurt by someone within the past year? If so, by whom?: No Do you feel safe in your current relationship?: No Current Relationship Is there a partner from a previous relationship who is making you feel unsafe now?: No Are you made to feel afraid or neglected: No Spiritual Healthcare Practices: none identified Rastafarian Healthcare Practices: none identified Cultural Healthcare Practices: none identified Advance Directives: No Advance Directives Information Provided: Yes Advance Directives on File: No Do you have thoughts of harming others: None Do you have a plan to hurt others: No Plan Recently lost weight without trying: No service: Yes Current occupational status: unemployed Sexual orientation: Straight/Heterosexual Meds Allergies Allergy/AdvReac Type Severity Reaction Status Date / Time acetaminophen [From TYLENOL] Allergy Unknown UNK Verified 05/05/20 21:10 codeine [CODEINE] Allergy Unknown RASH Verified 05/05/20 21:10 pneumococcal vaccine Allergy Unknown PARALYSIS Verified 05/05/20 21:10 [PNEUMOCOCCAL VACCINE] tuberculin, purified protein Allergy Unknown RASH Verified 05/05/20 21:10 deriva [TUBERCULIN, PURIFIED PROTEIN DERIVA] venlafaxine [From EFFEXOR] AdvReac Unknown UNKNOWN Verified 05/05/20 21:10 Home Medications Medication Instructions Recorded Confirmed Type fluoxetine 40 mg PO DAILY 05/21/20 06/13/20 History furosemide 40 mg PO DAILY 05/21/20 06/13/20 History spironolactone 50 mg PO DAILY 05/21/20 06/13/20 History gabapentin 400 mg PO TID 06/13/20 06/13/20 History quetiapine 50 mg PO TID PRN 06/13/20 06/13/20 History quetiapine 100 mg PO BEDTIME 06/13/20 06/13/20 History Physical Exam Vital Signs and Narrative: Vital Signs: Last Vital Signs Temp 97.9 F 06/16/20 16:23 Pulse 67 06/16/20 16:23 Resp 18 06/16/20 05:55 BP 118/69 06/16/20 16:23 Pulse Ox 97 06/16/20 05:55 Body Mass Index 29.8 Skin: Other: Bilateral lower extremity significant edema pitting 2 to 3+ up to his knees. With bilateral anterior carney wounds consistent with venous stasis disease. Some mild erythema throughout the lower extremities. Wounds are tender to palpation. Results Labs CBC and Chem 7: 06/16/20 07:41 06/16/20 07:42 Labs: Laboratory Results - last 24 hr 06/16/20 06/16/20 06/16/20 07:41 07:42 07:42 MCV 91.4 MCH 29.7 MCHC 32.5 RDW 19.4 H Plt Count 326 MPV 10.6 Immature Gran % (Auto) 0.1 Neut % (Auto) 26.9 L Lymph % (Auto) 47.3 H [place] % (Auto) 20.5 H Eos % (Auto) 4.7 H Baso % (Auto) 0.5 Lymph # (Auto) 3.6 [place] # (Auto) 1.5 H Eos # (Auto) 0.4 Baso # (Auto) 0.0 Abs Immat Gran (auto) 0.01 Absolute Neuts (auto) 2.0 Absolute Nucleated RBC 0.000 Nucleated RBC % (auto) 0.0 Smear Tech's Comments VERIFIED Anion Gap 8 L Estim Creat Clear Calc 137.2 Estimated GFR > 60 Fasting Glucose 78 Calcium 8.5 Total Bilirubin 0.5 AST 106 H ALT 56 H Alkaline Phosphatase 292 H Total Protein 6.8 Albumin 2.8 L Triglycerides 37 Cholesterol 117 LDL Cholesterol, Calc 60 HDL Cholesterol 50 D Vitamin B12 499 Folate 12.4 TSH 2.06 Assessment and Plan (1) Chronic venous hypertension (idiopathic) with ulcer of left lower extremity: Start date: 06/16/20 Problem details: Left anterior tibial venous ulcer Right traumatic laceration confounded by venous disease Status: Acute Patient is a 59-year-old male with history of blood clots in the past he said he had been on blood thinner is but he has been on blood thinner is for years. He has chronic issues with swelling of the lower extremities. He has never had any ablation therapy as far as he can remember. He has been homeless and a drug abuser specifically heroin who came in here with a overdose in April and who has been living [address] over the last several weeks. He has bilateral carney wounds which have been neglect it and not really cared for. At this point plan is to take care of the acute issue with decreasing the edema with [place] wraps and then we can try to get some tubigrips and eventually compression stockings. For the wounds would recommend silver alginate and trial of debridements as an outpatient at bedside. Zinc oxide on the surrounding wound and continuing with his compression. At time of discharge please make an appointment with the wound care center so that we will be allowed to continue our treatment plan with this patient as an outpatient. He understands and agrees with the a plan and would like to pursue care. He says that he is doing better and does not want to go back to using drugs and from a mental perspective is more determined to take good care of himself. I hope that we can have him accomplish this.
[2020-06-16] MEDS: QUEtiapine Fumarate 100 MG TABLET PO (20:54)
[2020-06-17] MEDS: cephALEXin 500 MG CAPSULE PO ×5 (00:04→20:14)
[2020-06-17] MEDS: hydrOXYzine HCL 25 MG TABLET PO (02:57)
[2020-06-17] MEDS: LORazepam 0.5 MG TABLET PO ×3 (02:58→20:14)
[2020-06-17] MEDS: TiZANidine HCL 4 MG TABLET PO ×3 (02:58→20:14)
[2020-06-17 06:10] VITALS: BP 121/66; PULSE 64; RESP 18; TEMP 36.8; O2SAT 96
[2020-06-17 07:00] VITALS: BMI 29.2
[2020-06-17 08:38] VITALS: BP 121/66; PULSE 64
[2020-06-17] MEDS: Furosemide 40 MG TABLET PO (08:38)
[2020-06-17] MEDS: Gabapentin 400 MG CAPSULE PO ×3 (08:38→20:13)
[2020-06-17] MEDS: Spironolactone 25 MG TABLET 50 MG PO (08:38)
[2020-06-17] MEDS: FLUoxetine HCl 20 MG CAPSULE 40 MG PO (08:38)
[2020-06-17] MEDS: Omeprazole 40 MG CAPSULE.DR PO (08:40)
--- NOTE | 2020-06-17 15:07 | P.PNPSI_ITS ---
Subjective Subjective Date of Service: 06/17/20 Reason For Visit: SI Subjective Notes: Conditional Voluntary Interim History: Pt expresses relief with wound consult and plan of care. Discussed housing situation and his status. Reports medication regime to be tolerated, not feeling over medicated at this time. Discussed issues with [facility] and that we will need to assess carefully given medical issues. He agrees and concurs. Medication Compliance: Yes Side effects from medications: No Attending Groups: Intermittent Review of Systems Cardiovascular: Reports claudication, Reports leg ulcers and Reports leg edema Reports behavioral changes and Reports memory loss Psychiatric: Reports anxiety, Reports behavioral changes, Reports depression, Reports difficulty concentrating, Reports hopelessness, Reports anhedonia and Reports memory loss Mental Status Exam Mental Status Exam Patient Appearance: Disheveled Patient Orientation: Person, Place, Time and Situation Level of Consciousness: Alert Patient Behavior: Appropriate and Passive Mood Description: Depressed and Anxious Affect Description: Flat Patient Cognition Impaired: Yes Ability to Follow Directions: Fair Speech Pattern: Spontaneous Speech Memory Description: Episodic Impaired and Recent Impaired Hallucinations: None Delusions: Not Present Thought Process: Rumination Thought Content: positive for [place] and positive for Circumstantial Depressive Symptoms: Increased Anxiety, Loss of Int. in Activity, Feelings of Worthlessness, Hopelessness, Unhappiness, Increased Fatigue, Low Self Esteem, Loss of Energy and Difficulty Concentrating Judgement: Fair Diagnostics Vital Signs (24Hr): Vital Signs - 24 hr 06/16/20 16:23 06/17/20 06:10 06/17/20 08:38 Temperature 97.9 F 98.3 F Pulse Rate 67 64 64 Respiratory Rate 18 Blood Pressure 118/69 121/66 121/66 Pulse Oximetry 96 Body Mass Index 29.8 Labs Results: 06/16/20 07:41 06/16/20 07:42 Labs: Laboratory Results - last 48 hr 06/16/20 06/16/20 06/16/20 07:41 07:42 07:42 WBC 7.5 RBC 3.74 L Hgb 11.1 L Hct 34.2 L MCV 91.4 MCH 29.7 MCHC 32.5 RDW 19.4 H Plt Count 326 MPV 10.6 Immature Gran % (Auto) 0.1 Neut % (Auto) 26.9 L Lymph % (Auto) 47.3 H [place] % (Auto) 20.5 H Eos % (Auto) 4.7 H Baso % (Auto) 0.5 Lymph # (Auto) 3.6 [place] # (Auto) 1.5 H Eos # (Auto) 0.4 Baso # (Auto) 0.0 Abs Immat Gran (auto) 0.01 Absolute Neuts (auto) 2.0 Absolute Nucleated RBC 0.000 Nucleated RBC % (auto) 0.0 Smear Tech's Comments VERIFIED Sodium 140 Potassium 4.6 Chloride 106 Carbon Dioxide 31 H Anion Gap 8 L BUN 23 H D Creatinine 0.70 Estim Creat Clear Calc 137.2 Estimated GFR > 60 Fasting Glucose 78 Calcium 8.5 Total Bilirubin 0.5 AST 106 H ALT 56 H Alkaline Phosphatase 292 H Total Protein 6.8 Albumin 2.8 L Triglycerides 37 Cholesterol 117 LDL Cholesterol, Calc 60 HDL Cholesterol 50 D Vitamin B12 499 Folate 12.4 TSH 2.06 Imaging Radiology Impressions: ITS Impressions Venous Duplex 06/13/20 17:13 IMPRESSION: No DVT demonstrated in bilateral lower extremity. Medications Medications Current Medications Generic Name Dose Route Start Last Admin Trade Name Freq PRN Reason Stop Dose Admin Cephalexin HCl 500 mg 06/13/20 17:15 06/17/20 11:20 Cephalexin 500 Mg Capsule PO 06/23/20 17:16 500 mg Q6H ELISEO Administration Doxycycline Hyclate 100 mg 06/16/20 08:00 06/17/20 08:38 Doxycycline Hyclate 100 Mg Tablet PO 100 mg Q12H ELISEO Administration Fluoxetine HCl 40 mg 06/14/20 09:00 06/17/20 08:38 Fluoxetine Hcl 20 Mg Capsule PO 40 mg DAILY ELISEO Administration Furosemide 40 mg 06/14/20 09:00 06/17/20 08:38 Furosemide 40 Mg Tablet PO 40 mg DAILY ELISEO Administration Protocol Gabapentin 400 mg 06/13/20 21:00 06/17/20 15:01 Gabapentin 400 Mg Capsule PO 400 mg TID ELISEO Administration Hydroxyzine HCl 25 mg 06/15/20 19:44 06/17/20 02:57 Hydroxyzine Hcl 25 Mg Tablet PO 25 mg BEDTIME PRN Administration Anxiety Lorazepam 0.5 mg 06/15/20 21:22 06/17/20 13:09 Lorazepam 0.5 Mg Tablet PO 0.5 mg TID PRN Administration anxiety Magnesium Hydroxide 30 ml 06/15/20 19:44 Milk Of Magnesia 30 Ml Oral.Susp PO DAILY PRN Constipation Omeprazole 40 mg 06/14/20 09:00 06/17/20 08:40 Omeprazole 40 Mg Capsule.Dr PO 40 mg DAILY ELISEO Administration Quetiapine Fumarate 100 mg 06/13/20 21:00 06/16/20 20:54 Quetiapine Fumarate 100 Mg Tablet PO 100 mg BEDTIME ELISEO Administration Spironolactone 50 mg 06/14/20 09:00 06/17/20 08:38 Spironolactone 25 Mg Tablet PO 50 mg DAILY ELISEO Administration Protocol Tizanidine HCl 4 mg 06/15/20 21:20 06/17/20 13:06 Tizanidine Hcl 4 Mg Tablet PO 4 mg Q6H PRN Administration muscle spasm Trazodone HCl 50 mg 06/15/20 19:44 Trazodone Hcl 50 Mg Tablet PO BEDTIME PRN Insomnia Allergies Allergies Allergy/AdvReac Type Severity Reaction Status Date / Time acetaminophen [From TYLENOL] Allergy Unknown UNK Verified 05/05/20 21:10 codeine [CODEINE] Allergy Unknown RASH Verified 05/05/20 21:10 pneumococcal vaccine Allergy Unknown PARALYSIS Verified 05/05/20 21:10 [PNEUMOCOCCAL VACCINE] tuberculin, purified protein Allergy Unknown RASH Verified 05/05/20 21:10 deriva [TUBERCULIN, PURIFIED PROTEIN DERIVA] venlafaxine [From EFFEXOR] AdvReac Unknown UNKNOWN Verified 05/05/20 21:10 Assessment & Plan Assessment & Plan (1) Cerebral microvascular disease: Status: Acute Code(s): I67.89 - Other cerebrovascular disease (2) Opioid use disorder, moderate, in controlled environment: Status: Acute Code(s): F11.20 - Opioid dependence, uncomplicated (3) Depression: Status: Acute Code(s): F32.9 - Major depressive disorder, single episode, unspecified Assessment and Plan: -Decrease Seroquel to 50 mg hs Greater than 50% of the session was spent on counseling and/or coordination of care
[2020-06-17 18:00] VITALS: BP 106/60; PULSE 63; TEMP 37.1
[2020-06-17] MEDS: QUEtiapine Fumarate 50 MG TABLET PO (20:14)
[2020-06-18] MEDS: TiZANidine HCL 4 MG TABLET PO ×4 (03:06→20:55)
[2020-06-18] MEDS: hydrOXYzine HCL 25 MG TABLET PO (03:06)
[2020-06-18] MEDS: LORazepam 0.5 MG TABLET PO ×3 (03:06→15:03)
[2020-06-18] MEDS: cephALEXin 500 MG CAPSULE PO ×3 (05:37→17:13)
[2020-06-18 05:40] VITALS: BP 113/58; PULSE 60; RESP 16; TEMP 36.6; O2SAT 96
[2020-06-18 08:15] VITALS: BP 113/58; PULSE 60; RESP 16; TEMP 36.6; O2SAT 96
[2020-06-18 08:27] LABS: Ammonia 89 umol/L (13-55)
[2020-06-18] MEDS: FLUoxetine HCl 20 MG CAPSULE 40 MG PO (08:27)
[2020-06-18] MEDS: Omeprazole 40 MG CAPSULE.DR PO (08:27)
[2020-06-18] MEDS: Gabapentin 400 MG CAPSULE PO ×3 (08:29→20:54)
[2020-06-18] MEDS: Furosemide 40 MG TABLET PO (08:31)
[2020-06-18 08:35] LABS: Amylase 37 U/L (28-100); Iron 23 mcg/dL (45-160); Lipase 30 U/L (8-78); Percent Iron Saturation 6 % (15-50); Total Iron Binding Capacity 393 mcg/dL (228-428); Unsaturated Iron Binding 370 ug/dL
[2020-06-18] MEDS: Spironolactone 25 MG TABLET 50 MG PO (08:36)
[2020-06-18 10:29] VITALS: PULSE 72
[2020-06-18 17:05] VITALS: BP 138/70; PULSE 61; TEMP 36.8
[2020-06-18 20:00] VITALS: PULSE 61
[2020-06-18] MEDS: QUEtiapine Fumarate 50 MG TABLET PO (20:54)
[2020-06-18] MEDS: traZODone HCL 50 MG TABLET PO (20:55)
--- NOTE | 2020-06-18 23:23 | P.PNPSI_ITS ---
Subjective Subjective Date of Service: 06/18/20 Reason For Visit: SI Subjective Notes: Conditional Voluntary Interim History: patient with limited insight. Patient was sedated lethargic when seen today Medication Compliance: Yes Mental Status Exam Mental Status Exam Patient Appearance: Disheveled Patient Orientation: Person, Place, Time and Situation Level of Consciousness: Drowsy and Lethargic Patient Behavior: Appropriate and Passive Mood Description: Depressed and Anxious Affect Description: Flat Patient Cognition Impaired: Yes Ability to Follow Directions: Fair Speech Pattern: Spontaneous Speech Memory Description: Episodic Impaired and Recent Impaired Hallucinations: None Delusions: Not Present Thought Process: Rumination Thought Content: positive for [place] and positive for Circumstantial Depressive Symptoms: Increased Anxiety, Loss of Int. in Activity, Feelings of Worthlessness, Hopelessness, Unhappiness, Increased Fatigue, Low Self Esteem, Loss of Energy and Difficulty Concentrating Judgement: Fair Diagnostics Vital Signs (24Hr): Vital Signs - 24 hr 06/18/20 05:40 06/18/20 08:15 06/18/20 17:05 Temperature 97.9 F 97.9 F 98.3 F Pulse Rate 60 60 61 Respiratory Rate 16 16 Blood Pressure 113/58 L 113/58 L 138/70 Pulse Oximetry 96 96 Body Mass Index 29.2 Labs Results: 06/16/20 07:41 06/16/20 07:42 Labs: Laboratory Results - last 48 hr 06/18/20 06/18/20 06/18/20 07:52 07:52 07:52 Iron 23 L TIBC 393 % Saturation 6 L Unsat Iron Binding 370 Ammonia 89 H Amylase 37 Lipase 30 Imaging Radiology Impressions: ITS Impressions Venous Duplex 06/13/20 17:13 IMPRESSION: No DVT demonstrated in bilateral lower extremity. Medications Medications Current Medications Generic Name Dose Route Start Last Admin Trade Name Freq PRN Reason Stop Dose Admin Cephalexin HCl 500 mg 06/13/20 17:15 06/18/20 17:13 Cephalexin 500 Mg Capsule PO 06/23/20 17:16 500 mg Q6H ELISEO Administration Doxycycline Hyclate 100 mg 06/16/20 08:00 06/18/20 20:54 Doxycycline Hyclate 100 Mg Tablet PO 100 mg Q12H ELISEO Administration Fluoxetine HCl 40 mg 06/14/20 09:00 06/18/20 08:27 Fluoxetine Hcl 20 Mg Capsule PO 40 mg DAILY ELISEO Administration Furosemide 40 mg 06/14/20 09:00 06/18/20 08:31 Furosemide 40 Mg Tablet PO 40 mg DAILY ELISEO Administration Protocol Gabapentin 400 mg 06/13/20 21:00 06/18/20 20:54 Gabapentin 400 Mg Capsule PO 400 mg TID ELISEO Administration Hydroxyzine HCl 25 mg 06/15/20 19:44 06/18/20 03:06 Hydroxyzine Hcl 25 Mg Tablet PO 25 mg BEDTIME PRN Administration Anxiety Lorazepam 0.5 mg 06/15/20 21:22 06/18/20 15:03 Lorazepam 0.5 Mg Tablet PO 0.5 mg TID PRN Administration anxiety Magnesium Hydroxide 30 ml 06/15/20 19:44 Milk Of Magnesia 30 Ml Oral.Susp PO DAILY PRN Constipation Omeprazole 40 mg 06/14/20 09:00 06/18/20 08:27 Omeprazole 40 Mg Capsule.Dr PO 40 mg DAILY ELISEO Administration Quetiapine Fumarate 50 mg 06/17/20 21:00 06/18/20 20:54 Quetiapine Fumarate 50 Mg Tablet PO 50 mg BEDTIME ELISEO Administration Spironolactone 50 mg 06/14/20 09:00 06/18/20 08:36 Spironolactone 25 Mg Tablet PO 50 mg DAILY ELISEO Administration Protocol Tizanidine HCl 4 mg 06/15/20 21:20 06/18/20 20:55 Tizanidine Hcl 4 Mg Tablet PO 4 mg Q6H PRN Administration muscle spasm Trazodone HCl 50 mg 06/15/20 19:44 06/18/20 20:55 Trazodone Hcl 50 Mg Tablet PO 50 mg BEDTIME PRN Administration Insomnia Allergies Allergies Allergy/AdvReac Type Severity Reaction Status Date / Time acetaminophen [From TYLENOL] Allergy Unknown UNK Verified 05/05/20 21:10 codeine [CODEINE] Allergy Unknown RASH Verified 05/05/20 21:10 pneumococcal vaccine Allergy Unknown PARALYSIS Verified 05/05/20 21:10 [PNEUMOCOCCAL VACCINE] tuberculin, purified protein Allergy Unknown RASH Verified 05/05/20 21:10 deriva [TUBERCULIN, PURIFIED PROTEIN DERIVA] venlafaxine [From EFFEXOR] AdvReac Unknown UNKNOWN Verified 05/05/20 21:10 Assessment & Plan Assessment & Plan (1) Chronic venous hypertension (idiopathic) with ulcer of left lower extremity: Status: Acute Code(s): I87.312 - Chronic venous hypertension (idiopathic) with ulcer of left lower extremity; L97.929 - Non-pressure chronic ulcer of unspecified part of left lower leg with unspecified severity (2) HTN (hypertension): Status: Acute Code(s): I10 - Essential (primary) hypertension (3) 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 Would benefit from rest home placement if he consented has recently been on the streets different occasions with opiate use after not following up with discharge planning. Continue Prozac Seroquel monitor for over sedation may need to lower gabapentin patient with chronic heroin use Greater than 50% of the session was spent on counseling and/or coordination of care
[2020-06-19] MEDS: cephALEXin 500 MG CAPSULE PO ×5 (01:16→23:53)
[2020-06-19] MEDS: LORazepam 0.5 MG TABLET PO ×3 (03:17→14:12)
[2020-06-19] MEDS: TiZANidine HCL 4 MG TABLET PO ×4 (03:17→22:16)
[2020-06-19 06:35] VITALS: BP 132/72; PULSE 51; RESP 16; TEMP 36.2; O2SAT 97
[2020-06-19] MEDS: Gabapentin 400 MG CAPSULE PO ×3 (08:56→22:17)
[2020-06-19] MEDS: Spironolactone 25 MG TABLET 50 MG PO (08:56)
[2020-06-19] MEDS: Omeprazole 40 MG CAPSULE.DR PO (08:56)
[2020-06-19] MEDS: Furosemide 40 MG TABLET PO (08:57)
[2020-06-19] MEDS: FLUoxetine HCl 20 MG CAPSULE 40 MG PO (08:57)
--- NOTE | 2020-06-19 15:02 | HO.PSYCHPN ---
Subjective Subjective Date of Service: 06/19/20 Reason For Visit: SI Interim History: Reviewed nursing noted. Pt mostly in his room. He reports no improvement in physical and emotional health. He denies SI/HI. He reports sleeping and eating well. He is taking medications as prescribed. He does not attend groups, minimally interactive with peers. Encouraged to attend groups. Review of Systems Review of Systems Constitutional: No Fever, No Chills ENT/Mouth: No sore throat, No Rhinorrhea, No Swallowing Difficulty Eyes: No Eye Pain, No Swelling, No Redness Cardiovascular: No Chest Pain, No SOB, No Orthopnea, No Edema Respiratory: No Cough, No Sputum, No Wheezing, No dyspnea Gastrointestinal: No Nausea, No Vomiting, No Diarrhea, No abdominal Pain, No Hematochezia, No Melena Genitourinary: No Dysuria, No Urinary Frequency, No Hematuria Musculoskeletal: No joint pain, No Myalgias Skin: + Skin Lesions, No rash Neuro: No Weakness, No Numbness, No Dizziness, + Headache Psych: + Anxiety/Panic, + Depression Heme/Lymph: No Bruising, No Lymphadenopathy Endocrine: No Polyuria, No Polydipsia Cardiovascular: Reports claudication, Reports leg ulcers and Reports leg edema Reports behavioral changes and Reports memory loss Psychiatric: Reports anxiety, Reports behavioral changes, Reports depression, Reports difficulty concentrating, Reports hopelessness, Reports anhedonia and Reports memory loss Mental Status Exam Mental Status Exam Patient Appearance: Disheveled Patient Orientation: Person, Place, Time and Situation Level of Consciousness: Drowsy and Lethargic Patient Behavior: Appropriate and Passive Mood Description: Depressed and Anxious Affect Description: Flat Patient Cognition Impaired: Yes Ability to Follow Directions: Fair Speech Pattern: Spontaneous Speech Memory Description: Episodic Impaired and Recent Impaired Diagnostics Vital Signs (24Hr): Vital Signs - 24 hr 06/18/20 17:05 06/19/20 06:35 Temperature 98.3 F 97.2 F Pulse Rate 61 51 Respiratory Rate 16 Blood Pressure 138/70 132/72 Pulse Oximetry 97 Body Mass Index 29.2 Labs Results: 06/16/20 07:41 06/16/20 07:42 Labs: Laboratory Results - last 48 hr 06/18/20 06/18/20 06/18/20 07:52 07:52 07:52 Iron 23 L TIBC 393 % Saturation 6 L Unsat Iron Binding 370 Ammonia 89 H Amylase 37 Lipase 30 Imaging Radiology Impressions: ITS Impressions Venous Duplex 06/13/20 17:13 IMPRESSION: No DVT demonstrated in bilateral lower extremity. Medications Medications Current Medications Generic Name Dose Route Start Last Admin Trade Name Freq PRN Reason Stop Dose Admin Cephalexin HCl 500 mg 06/13/20 17:15 06/19/20 14:13 Cephalexin 500 Mg Capsule PO 06/23/20 17:16 500 mg Q6H ELISEO Administration Doxycycline Hyclate 100 mg 06/16/20 08:00 06/19/20 08:56 Doxycycline Hyclate 100 Mg Tablet PO 100 mg Q12H ELISEO Administration Fluoxetine HCl 40 mg 06/14/20 09:00 06/19/20 08:57 Fluoxetine Hcl 20 Mg Capsule PO 40 mg DAILY ELISEO Administration Furosemide 40 mg 06/14/20 09:00 06/19/20 08:57 Furosemide 40 Mg Tablet PO 40 mg DAILY ELISEO Administration Protocol Gabapentin 400 mg 06/13/20 21:00 06/19/20 14:13 Gabapentin 400 Mg Capsule PO 400 mg TID ELISEO Administration Hydroxyzine HCl 25 mg 06/15/20 19:44 06/18/20 03:06 Hydroxyzine Hcl 25 Mg Tablet PO 25 mg BEDTIME PRN Administration Anxiety Lorazepam 0.5 mg 06/15/20 21:22 06/19/20 14:12 Lorazepam 0.5 Mg Tablet PO 0.5 mg TID PRN Administration anxiety Magnesium Hydroxide 30 ml 06/15/20 19:44 Milk Of Magnesia 30 Ml Oral.Susp PO DAILY PRN Constipation Omeprazole 40 mg 06/14/20 09:00 06/19/20 08:56 Omeprazole 40 Mg Capsule.Dr PO 40 mg DAILY ELISEO Administration Quetiapine Fumarate 50 mg 06/17/20 21:00 06/18/20 20:54 Quetiapine Fumarate 50 Mg Tablet PO 50 mg BEDTIME ELISEO Administration Spironolactone 50 mg 06/14/20 09:00 06/19/20 08:56 Spironolactone 25 Mg Tablet PO 50 mg DAILY ELISEO Administration Protocol Tizanidine HCl 4 mg 06/15/20 21:20 06/19/20 14:22 Tizanidine Hcl 4 Mg Tablet PO 4 mg Q6H PRN Administration muscle spasm Trazodone HCl 50 mg 06/15/20 19:44 06/18/20 20:55 Trazodone Hcl 50 Mg Tablet PO 50 mg BEDTIME PRN Administration Insomnia Allergies Allergies Allergy/AdvReac Type Severity Reaction Status Date / Time acetaminophen [From TYLENOL] Allergy Unknown UNK Verified 05/05/20 21:10 codeine [CODEINE] Allergy Unknown RASH Verified 05/05/20 21:10 pneumococcal vaccine Allergy Unknown PARALYSIS Verified 05/05/20 21:10 [PNEUMOCOCCAL VACCINE] tuberculin, purified protein Allergy Unknown RASH Verified 05/05/20 21:10 deriva [TUBERCULIN, PURIFIED PROTEIN DERIVA] venlafaxine [From EFFEXOR] AdvReac Unknown UNKNOWN Verified 05/05/20 21:10 Assessment & Plan Assessment & Plan (1) Chronic venous hypertension (idiopathic) with ulcer of left lower extremity: Status: Acute Code(s): I87.312 - Chronic venous hypertension (idiopathic) with ulcer of left lower extremity; L97.929 - Non-pressure chronic ulcer of unspecified part of left lower leg with unspecified severity (2) HTN (hypertension): Status: Acute Code(s): I10 - Essential (primary) hypertension (3) 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 Would benefit from rest home placement if he consented has recently been on the streets different occasions with opiate use after not following up with discharge planning. Continue Prozac Seroquel monitor for over sedation may need to lower gabapentin patient with chronic heroin use Greater than 50% of the session was spent on counseling and/or coordination of care
[2020-06-19 16:30] VITALS: PULSE 82
[2020-06-19 17:52] VITALS: BP 117/59; PULSE 82; TEMP 36.7
[2020-06-19] MEDS: QUEtiapine Fumarate 50 MG TABLET PO (22:17)
[2020-06-19] MEDS: traZODone HCL 50 MG TABLET PO (22:17)
[2020-06-20] MEDS: LORazepam 0.5 MG TABLET PO ×2 (04:03→14:15)
[2020-06-20] MEDS: hydrOXYzine HCL 25 MG TABLET PO (04:03)
[2020-06-20] MEDS: cephALEXin 500 MG CAPSULE PO ×2 (05:25→14:14)
[2020-06-20 06:00] VITALS: BP 108/57; PULSE 49; RESP 18; TEMP 36.8
[2020-06-20] MEDS: Gabapentin 400 MG CAPSULE PO ×3 (08:28→21:14)
[2020-06-20] MEDS: FLUoxetine HCl 20 MG CAPSULE 40 MG PO (08:28)
[2020-06-20] MEDS: TiZANidine HCL 4 MG TABLET PO ×3 (08:28→21:12)
[2020-06-20] MEDS: Furosemide 40 MG TABLET PO (08:28)
[2020-06-20] MEDS: Omeprazole 40 MG CAPSULE.DR PO (08:28)
[2020-06-20] MEDS: Spironolactone 25 MG TABLET 50 MG PO (08:29)
--- NOTE | 2020-06-20 14:03 | P.PNPSI_ITS ---
Subjective Subjective Date of Service: 06/20/20 Reason For Visit: SI Interim History: Reviewed nursing noted. Pt mostly in his room. He reports no improvement in physical and emotional health. He denies SI/HI. He reports sleeping and eating well. He is taking medications as prescribed. He does not attend groups, minimally interactive with peers. Encouraged to attend groups. Review of Systems Review of Systems Constitutional: No Fever, No Chills ENT/Mouth: No sore throat, No Rhinorrhea, No Swallowing Difficulty Eyes: No Eye Pain, No Swelling, No Redness Cardiovascular: No Chest Pain, No SOB, No Orthopnea, No Edema Respiratory: No Cough, No Sputum, No Wheezing, No dyspnea Gastrointestinal: No Nausea, No Vomiting, No Diarrhea, No abdominal Pain, No Hematochezia, No Melena Genitourinary: No Dysuria, No Urinary Frequency, No Hematuria Musculoskeletal: No joint pain, No Myalgias Skin: + Skin Lesions, No rash Neuro: No Weakness, No Numbness, No Dizziness, + Headache Psych: + Anxiety/Panic, + Depression Heme/Lymph: No Bruising, No Lymphadenopathy Endocrine: No Polyuria, No Polydipsia Cardiovascular: Reports claudication, Reports leg ulcers and Reports leg edema Reports behavioral changes and Reports memory loss Psychiatric: Reports anxiety, Reports behavioral changes, Reports depression, Reports difficulty concentrating, Reports hopelessness, Reports anhedonia and Reports memory loss Mental Status Exam Mental Status Exam Patient Appearance: Disheveled Patient Orientation: Person, Place, Time and Situation Level of Consciousness: Drowsy and Lethargic Patient Behavior: Appropriate and Passive Mood Description: Depressed and Anxious Affect Description: Flat Patient Cognition Impaired: Yes Ability to Follow Directions: Fair Speech Pattern: Spontaneous Speech Memory Description: Episodic Impaired and Recent Impaired Diagnostics Vital Signs (24Hr): Vital Signs - 24 hr 06/19/20 17:52 06/20/20 06:00 Temperature 98.0 F 98.3 F Pulse Rate 82 49 L Respiratory Rate 18 Blood Pressure 117/59 L 108/57 L Body Mass Index 29.2 Labs Results: 06/16/20 07:41 06/16/20 07:42 Imaging Radiology Impressions: ITS Impressions Venous Duplex 06/13/20 17:13 IMPRESSION: No DVT demonstrated in bilateral lower extremity. Medications Medications Current Medications Generic Name Dose Route Start Last Admin Trade Name Freq PRN Reason Stop Dose Admin Cephalexin HCl 500 mg 06/13/20 17:15 06/20/20 05:25 Cephalexin 500 Mg Capsule PO 06/23/20 17:16 500 mg Q6H ELISEO Administration Doxycycline Hyclate 100 mg 06/16/20 08:00 06/20/20 08:28 Doxycycline Hyclate 100 Mg Tablet PO 100 mg Q12H ELISEO Administration Fluoxetine HCl 40 mg 06/14/20 09:00 06/20/20 08:28 Fluoxetine Hcl 20 Mg Capsule PO 40 mg DAILY ELISEO Administration Furosemide 40 mg 06/14/20 09:00 06/20/20 08:28 Furosemide 40 Mg Tablet PO 40 mg DAILY ELISEO Administration Protocol Gabapentin 400 mg 06/13/20 21:00 06/20/20 08:28 Gabapentin 400 Mg Capsule PO 400 mg TID ELISEO Administration Hydroxyzine HCl 25 mg 06/15/20 19:44 06/20/20 04:03 Hydroxyzine Hcl 25 Mg Tablet PO 25 mg BEDTIME PRN Administration Anxiety Lorazepam 0.5 mg 06/15/20 21:22 06/20/20 04:03 Lorazepam 0.5 Mg Tablet PO 0.5 mg TID PRN Administration anxiety Magnesium Hydroxide 30 ml 06/15/20 19:44 Milk Of Magnesia 30 Ml Oral.Susp PO DAILY PRN Constipation Omeprazole 40 mg 06/14/20 09:00 06/20/20 08:28 Omeprazole 40 Mg Capsule.Dr PO 40 mg DAILY ELISEO Administration Quetiapine Fumarate 50 mg 06/17/20 21:00 06/19/20 22:17 Quetiapine Fumarate 50 Mg Tablet PO 50 mg BEDTIME ELISEO Administration Spironolactone 50 mg 06/14/20 09:00 06/20/20 08:29 Spironolactone 25 Mg Tablet PO 50 mg DAILY ELISEO Administration Protocol Tizanidine HCl 4 mg 06/15/20 21:20 06/20/20 08:28 Tizanidine Hcl 4 Mg Tablet PO 4 mg Q6H PRN Administration muscle spasm Trazodone HCl 50 mg 06/15/20 19:44 06/19/20 22:17 Trazodone Hcl 50 Mg Tablet PO 50 mg BEDTIME PRN Administration Insomnia Allergies Allergies Allergy/AdvReac Type Severity Reaction Status Date / Time acetaminophen [From TYLENOL] Allergy Unknown UNK Verified 05/05/20 21:10 codeine [CODEINE] Allergy Unknown RASH Verified 05/05/20 21:10 pneumococcal vaccine Allergy Unknown PARALYSIS Verified 05/05/20 21:10 [PNEUMOCOCCAL VACCINE] tuberculin, purified protein Allergy Unknown RASH Verified 05/05/20 21:10 deriva [TUBERCULIN, PURIFIED PROTEIN DERIVA] venlafaxine [From EFFEXOR] AdvReac Unknown UNKNOWN Verified 05/05/20 21:10 Assessment & Plan Assessment & Plan (1) Chronic venous hypertension (idiopathic) with ulcer of left lower extremity: Status: Acute Code(s): I87.312 - Chronic venous hypertension (idiopathic) with ulcer of left lower extr emity; L97.929 - Non-pressure chronic ulcer of unspecified part of left lower leg with unspecified severity (2) HTN (hypertension): Status: Acute Code(s): I10 - Essential (primary) hypertension (3) 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 Would benefit from rest home placement if he consented has recently been on the streets different occasions with opiate use after not following up with discharge planning. Continue Prozac Seroquel monitor for over sedation may need to lower gabapentin patient with chronic heroin use Greater than 50% of the session was spent on counseling and/or coordination of care
[2020-06-20 16:00] VITALS: PULSE 59
[2020-06-20 18:00] VITALS: BP 105/57; PULSE 59; TEMP 36.5
[2020-06-20] MEDS: QUEtiapine Fumarate 50 MG TABLET PO (21:13)
[2020-06-20] MEDS: traZODone HCL 50 MG TABLET PO (21:14)
[2020-06-21 04:15] VITALS: BP 121/64; PULSE 56; RESP 16; TEMP 36.5; O2SAT 98
[2020-06-21 08:34] VITALS: BP 121/64; PULSE 56; RESP 16; TEMP 36.5; O2SAT 98
[2020-06-21 08:48] VITALS: BP 121/64; PULSE 56
[2020-06-21] MEDS: FLUoxetine HCl 20 MG CAPSULE 40 MG PO (08:48)
[2020-06-21] MEDS: Gabapentin 400 MG CAPSULE PO ×3 (08:48→20:39)
[2020-06-21] MEDS: LORazepam 0.5 MG TABLET PO ×3 (08:48→20:51)
[2020-06-21] MEDS: Spironolactone 25 MG TABLET 50 MG PO (08:48)
[2020-06-21] MEDS: Omeprazole 40 MG CAPSULE.DR PO (08:49)
[2020-06-21] MEDS: TiZANidine HCL 4 MG TABLET PO ×2 (08:49→16:47)
[2020-06-21] MEDS: Furosemide 40 MG TABLET PO (08:49)
[2020-06-21 11:49] VITALS: PULSE 59
--- NOTE | 2020-06-21 15:22 | P.PNPSI_ITS ---
Subjective Subjective Date of Service: 06/22/20 Reason For Visit: SI Subjective Notes: Conditional Voluntary Interim History: Pt reports feeling some improvement in physical status, however still reporting anxiety specifically regarding housing post discharge. Appears sedate, denies feeling overmedicated. Medication Compliance: Yes Side effects from medications: No (denies) Attending Groups: No Review of Systems Cardiovascular: Reports other (Chronic venous HTN LLE Ulcer, R Traumatic Laceration) Psychiatric: Reports anxiety, Reports depression, Reports difficulty concentrating, Reports hopelessness and Reports irritability Mental Status Exam Mental Status Exam Patient Appearance: Appropriate Patient Orientation: Person, Place and Situation Level of Consciousness: Alert Patient Behavior: Talkative Mood Description: Depressed, Flat, Nervous and Apprehensive Affect Description: Flat Patient Cognition Impaired: Yes Ability to Follow Directions: Good Speech Pattern: Spontaneous Speech Memory Description: Remote Impaired and Recent Impaired Hallucinations: None Delusions: Not Present Thought Process: Rumination and Confusion Thought Content: positive for [place] and positive for Circumstantial Depressive Symptoms: Increased Anxiety, Hopelessness and Loss of Energy Judgement: Poor Diagnostics Vital Signs (24Hr): Vital Signs - 24 hr 06/20/20 18:00 06/21/20 04:15 06/21/20 08:34 Temperature 97.7 F 97.7 F 97.7 F Pulse Rate 59 56 56 Respiratory Rate 16 16 Blood Pressure 105/57 L 121/64 121/64 Pulse Oximetry 98 98 06/21/20 08:48 Temperature Pulse Rate 56 Respiratory Rate Blood Pressure 121/64 Pulse Oximetry Body Mass Index 29.2 Labs Results: 06/16/20 07:41 06/16/20 07:42 Imaging Radiology Impressions: ITS Impressions Venous Duplex 06/13/20 17:13 IMPRESSION: No DVT demonstrated in bilateral lower extremity. Medications Medications Current Medications Generic Name Dose Route Start Last Admin Trade Name Freq PRN Reason Stop Dose Admin Doxycycline Hyclate 100 mg 06/16/20 08:00 06/21/20 08:48 Doxycycline Hyclate 100 Mg Tablet PO 100 mg Q12H ELISEO Administration Fluoxetine HCl 40 mg 06/14/20 09:00 06/21/20 08:48 Fluoxetine Hcl 20 Mg Capsule PO 40 mg DAILY ELISEO Administration Furosemide 40 mg 06/14/20 09:00 06/21/20 08:49 Furosemide 40 Mg Tablet PO 40 mg DAILY ELISEO Administration Protocol Gabapentin 400 mg 06/13/20 21:00 06/21/20 14:45 Gabapentin 400 Mg Capsule PO 400 mg TID ELISEO Administration Hydroxyzine HCl 25 mg 06/15/20 19:44 06/20/20 04:03 Hydroxyzine Hcl 25 Mg Tablet PO 25 mg BEDTIME PRN Administration Anxiety Lorazepam 0.5 mg 06/15/20 21:22 06/21/20 08:48 Lorazepam 0.5 Mg Tablet PO 0.5 mg TID PRN Administration anxiety Magnesium Hydroxide 30 ml 06/15/20 19:44 Milk Of Magnesia 30 Ml Oral.Susp PO DAILY PRN Constipation Omeprazole 40 mg 06/14/20 09:00 06/21/20 08:49 Omeprazole 40 Mg Capsule.Dr PO 40 mg DAILY ELISEO Administration Quetiapine Fumarate 50 mg 06/17/20 21:00 06/20/20 21:13 Quetiapine Fumarate 50 Mg Tablet PO 50 mg BEDTIME ELISEO Administration Spironolactone 50 mg 06/14/20 09:00 06/21/20 08:48 Spironolactone 25 Mg Tablet PO 50 mg DAILY ELISEO Administration Protocol Tizanidine HCl 4 mg 06/15/20 21:20 06/21/20 08:49 Tizanidine Hcl 4 Mg Tablet PO 4 mg Q6H PRN Administration muscle spasm Trazodone HCl 50 mg 06/15/20 19:44 06/20/20 21:14 Trazodone Hcl 50 Mg Tablet PO 50 mg BEDTIME PRN Administration Insomnia Allergies Allergies Allergy/AdvReac Type Severity Reaction Status Date / Time acetaminophen [From TYLENOL] Allergy Unknown UNK Verified 05/05/20 21:10 codeine [CODEINE] Allergy Unknown RASH Verified 05/05/20 21:10 pneumococcal vaccine Allergy Unknown PARALYSIS Verified 05/05/20 21:10 [PNEUMOCOCCAL VACCINE] tuberculin, purified protein Allergy Unknown RASH Verified 05/05/20 21:10 deriva [TUBERCULIN, PURIFIED PROTEIN DERIVA] venlafaxine [From EFFEXOR] AdvReac Unknown UNKNOWN Verified 05/05/20 21:10 Assessment & Plan Assessment & Plan (1) Chronic venous hypertension (idiopathic) with ulcer of left lower extremity: Status: Acute Code(s): I87.312 - Chronic venous hypertension (idiopathic) with ulcer of left lower extremity; L97.929 - Non-pressure chronic ulcer of unspecified part of left lower leg with unspecified severity Assessment and Plan: Continue wound care plan (2) Opioid use disorder, moderate, in controlled environment: Status: Acute Code(s): F11.20 - Opioid dependence, uncomplicated (3) Depression: Status: Acute Code(s): F32.9 - Major depressive disorder, single episode, unspecified Assessment and Plan: Discussed current regime with pt. He believes it is effective when he is compliant in community. No changes today. Greater than 50% of the session was spent on counseling and/or coordination of care
[2020-06-21 19:20] VITALS: BP 128/71; PULSE 51; TEMP 36.9
[2020-06-21] MEDS: QUEtiapine Fumarate 50 MG TABLET PO (20:39)
[2020-06-21] MEDS: traZODone HCL 50 MG TABLET PO (20:50)
[2020-06-21] MEDS: hydrOXYzine HCL 25 MG TABLET PO (20:51)
--- NOTE | 2020-06-21 21:51 | PC.NURSE ---
Pt refused to allow for assessment / dressing change of bilateral leg wounds. Pt was offered opportunity to take a shower and to have leg wounds assessed and dressings changed several times through shift, but pt refused each time.
[2020-06-22 06:10] VITALS: BP 121/62; PULSE 55; RESP 18; TEMP 36.4; O2SAT 97
[2020-06-22 08:52] VITALS: BP 121/62; PULSE 55
[2020-06-22] MEDS: Gabapentin 400 MG CAPSULE PO ×3 (08:52→20:36)
[2020-06-22] MEDS: Omeprazole 40 MG CAPSULE.DR PO (08:52)
[2020-06-22] MEDS: Spironolactone 25 MG TABLET 50 MG PO (08:52)
[2020-06-22] MEDS: LORazepam 0.5 MG TABLET PO ×3 (08:53→22:35)
[2020-06-22] MEDS: Furosemide 40 MG TABLET PO (08:53)
[2020-06-22] MEDS: FLUoxetine HCl 20 MG CAPSULE 40 MG PO (08:53)
[2020-06-22] MEDS: TiZANidine HCL 4 MG TABLET PO ×3 (08:53→22:35)
--- NOTE | 2020-06-22 16:49 | HO.PSYCHPN ---
Subjective Subjective Date of Service: 06/22/20 Reason For Visit: SI Subjective Notes: Conditional Voluntary Interim History: Pt reports feeling better today. States he refused wound care yesterday due to anger regarding medications and being denied medications. Discussed his concerns. Focused on housing and what he is able to do on his own and what he will need help with. Reports regime to be effective-identifes an issue of community noncompliance for reasons relating to homelessness. Medication Compliance: Yes Side effects from medications: No Attending Groups: No Review of Systems Cardiovascular: Reports edema (wounds-bilateral LE) Psychiatric: Reports anxiety and Reports irritability Mental Status Exam Mental Status Exam Patient Appearance: Appropriate Patient Orientation: Person, Place, Time and Situation Level of Consciousness: Alert Patient Behavior: Appropriate and Talkative Mood Description: Calm Affect Description: Calm Patient Cognition Impaired: No Ability to Follow Directions: Good Speech Pattern: Spontaneous Speech Memory Description: Episodic Impaired Hallucinations: None Delusions: Not Present Thought Process: Intact and Goal Oriented Thought Content: positive for [place] and positive for Circumstantial Depressive Symptoms: Increased Anxiety, Diff. Making Decisions, Increased Irritability, Hopelessness, Unhappiness and Increased Fatigue Judgement: Fair Diagnostics Vital Signs (24Hr): Vital Signs - 24 hr 06/21/20 19:20 06/22/20 06:10 06/22/20 08:52 Temperature 98.4 F 97.6 F Pulse Rate 51 55 55 Respiratory Rate 18 Blood Pressure 128/71 121/62 121/62 Pulse Oximetry 97 Body Mass Index 29.2 Labs Results: 06/16/20 07:41 06/16/20 07:42 Imaging Radiology Impressions: ITS Impressions Venous Duplex 06/13/20 17:13 IMPRESSION: No DVT demonstrated in bilateral lower extremity. Medications Medications Current Medications Generic Name Dose Route Start Last Admin Trade Name Vivien PRN Reason Stop Dose Admin Fluoxetine HCl 40 mg 06/14/20 09:00 06/22/20 08:53 Fluoxetine Hcl 20 Mg Capsule PO 40 mg DAILY ELISEO Administration Furosemide 40 mg 06/14/20 09:00 06/22/20 08:53 Furosemide 40 Mg Tablet PO 40 mg DAILY ELISEO Administration Protocol Gabapentin 400 mg 06/13/20 21:00 06/22/20 14:57 Gabapentin 400 Mg Capsule PO 400 mg TID ELISEO Administration Hydroxyzine HCl 25 mg 06/15/20 19:44 06/21/20 20:51 Hydroxyzine Hcl 25 Mg Tablet PO 25 mg BEDTIME PRN Administration Anxiety Lorazepam 0.5 mg 06/15/20 21:22 06/22/20 14:57 Lorazepam 0.5 Mg Tablet PO 0.5 mg TID PRN Administration anxiety Magnesium Hydroxide 30 ml 06/15/20 19:44 Milk Of Magnesia 30 Ml Oral.Susp PO DAILY PRN Constipation Omeprazole 40 mg 06/14/20 09:00 06/22/20 08:52 Omeprazole 40 Mg Capsule.Dr PO 40 mg DAILY ELISEO Administration Quetiapine Fumarate 50 mg 06/17/20 21:00 06/21/20 20:39 Quetiapine Fumarate 50 Mg Tablet PO 50 mg BEDTIME ELISEO Administration Spironolactone 50 mg 06/14/20 09:00 06/22/20 08:52 Spironolactone 25 Mg Tablet PO 50 mg DAILY ELISEO Administration Protocol Tizanidine HCl 4 mg 06/15/20 21:20 06/22/20 14:58 Tizanidine Hcl 4 Mg Tablet PO 4 mg Q6H PRN Administration muscle spasm Trazodone HCl 50 mg 06/15/20 19:44 06/21/20 20:50 Trazodone Hcl 50 Mg Tablet PO 50 mg BEDTIME PRN Administration Insomnia Allergies Allergies Allergy/AdvReac Type Severity Reaction Status Date / Time acetaminophen [From TYLENOL] Allergy Unknown UNK Verified 05/05/20 21:10 codeine [CODEINE] Allergy Unknown RASH Verified 05/05/20 21:10 pneumococcal vaccine Allergy Unknown PARALYSIS Verified 05/05/20 21:10 [PNEUMOCOCCAL VACCINE] tuberculin, purified protein Allergy Unknown RASH Verified 05/05/20 21:10 deriva [TUBERCULIN, PURIFIED PROTEIN DERIVA] venlafaxine [From EFFEXOR] AdvReac Unknown UNKNOWN Verified 05/05/20 21:10 Assessment & Plan Assessment & Plan (1) Major depression in partial remission: Status: Acute Code(s): F32.4 - Major depressive disorder, single episode, in partial remission Assessment and Plan: -Continue current plan of care. (2) Chronic venous hypertension (idiopathic) with ulcer of left lower extremity: Status: Acute Code(s): I87.312 - Chronic venous hypertension (idiopathic) with ulcer of left lower extremity; L97.929 - Non-pressure chronic ulcer of unspecified part of left lower leg with unspecified severity (3) Opioid use disorder, moderate, in controlled environment: Status: Acute Code(s): F11.20 - Opioid dependence, uncomplicated Greater than 50% of the session was spent on counseling and/or coordination of care
[2020-06-22 18:00] VITALS: BP 104/58; PULSE 56; TEMP 36.2
[2020-06-22] MEDS: QUEtiapine Fumarate 50 MG TABLET PO (20:36)
[2020-06-22] MEDS: hydrOXYzine HCL 25 MG TABLET PO (22:35)
[2020-06-22] MEDS: traZODone HCL 50 MG TABLET PO (22:35)
--- NOTE | 2020-06-22 22:45 | PC.NURSE ---
PT. CAME OUT OF HIS BEDROOM AND YELLED I WANT MY MEDS, I WANT ALL OF MY MEDS . PT. WAS ASK FOR WHAT HE NEEDS THE PRN'S, HIS SCHEDULED HS MEDICATIONS WERE BROUGHT TO HIS ROOM AND ADMINISTERED AT 20:36. AT THIS TIME PT. WAS ENCOURAGED TO COME TO THE MED. WINDOW IF HE NEEDS ANYTHING ELSE AND FOR HIS DRESSING CHANGE FOR LEFT AND RIGHT LOWER LEG. WHEN PT. APPROACHED T/W AT 22:35 HE HAD CLENCHED FISTS AND HE STATED I'M READY TO PUNCH SOMEONE . PT. WAS ASSURED THAT HE CAN GET ANY PRN HE NEEDS IF DUE. TRAZADONE, ZANAFLEX, ATIVAN AND ATARAX WERE ADMINISTERED PER REQUEST. PT. REFUSED HIS DRESSING CHANGE. PT. STATED HE WALKED OFF, DON'T WORRY I WILL TALK TO MY DOCTOR TOMORROW . WHEN CHARGE NURSE AND T/W ENCOURAGED PT. FOR A SECOND TIME TO ALLOW US DO HIS DRESSING CHANGE HE REFUSED BEING AGITATED. PT. SLAMMED HIS BEDROOM DOOR HE WENT BACK INTO HIS ROOM.
[2020-06-23 06:20] VITALS: BP 119/63; PULSE 56; RESP 18; TEMP 36.5; O2SAT 97
[2020-06-23] MEDS: FLUoxetine HCl 20 MG CAPSULE 40 MG PO (10:02)
[2020-06-23] MEDS: Gabapentin 400 MG CAPSULE PO ×3 (10:02→21:59)
[2020-06-23] MEDS: Omeprazole 40 MG CAPSULE.DR PO (10:02)
[2020-06-23 10:03] VITALS: BP 119/63; PULSE 56
[2020-06-23] MEDS: TiZANidine HCL 4 MG TABLET PO ×2 (10:03→17:52)
[2020-06-23] MEDS: Spironolactone 25 MG TABLET 50 MG PO (10:03)
[2020-06-23] MEDS: Furosemide 40 MG TABLET PO (10:04)
--- NOTE | 2020-06-23 17:04 | P.PNPSI_ITS ---
Subjective Subjective Date of Service: 06/23/20 Reason For Visit: SI Subjective Notes: Conditional Voluntary Interim History: Reports feeling improved. Allowed dressing changes which he again refused last evening. Stated he was angry about medications but was not s pecific. Relieved that he has housing options to work with. Refused MOCA when offered by team. Medication Compliance: Intermittent Side effects from medications: No Attending Groups: No Review of Systems Cardiovascular: Reports other (Chronic venous HTN with LLE ulcer and R traumatic Laceration) Reports behavioral changes and Reports memory loss Psychiatric: Reports anxiety, Reports behavioral changes, Reports irritability, Reports memory loss, Reports mood swings and Reports paranoia Mental Status Exam Mental Status Exam Patient Appearance: Appropriate Patient Orientation: Person, Place, Time and Situation Level of Consciousness: Appropriate Patient Behavior: Talkative, Fatigued and Good Eye Contact Mood Description: Calm Affect Description: Calm Patient Cognition Impaired: Yes Ability to Follow Directions: Good Speech Pattern: Spontaneous Speech Memory Description: Remote Impaired and Episodic Impaired Hallucinations: None Delusions: Not Present Thought Process: Illogical (at times when discussing housing options for free and being able to meet his needs.) Thought Content: positive for [place] and positive for Circumstantial Depressive Symptoms: Increased Anxiety, Diff. Making Decisions, Increased Irritability, Hopelessness, Increased Fatigue, Loss of Energy and Difficulty Concentrating Judgement: Fair Diagnostics Vital Signs (24Hr): Vital Signs - 24 hr 06/22/20 18:00 06/23/20 06:20 06/23/20 10:03 Temperature 97.2 F 97.7 F Pulse Rate 56 56 56 Respiratory Rate 18 Blood Pressure 104/58 L 119/63 119/63 Pulse Oximetry 97 Body Mass Index 29.2 Labs Results: 06/16/20 07:41 06/16/20 07:42 Imaging Radiology Impressions: ITS Impressions Venous Duplex 06/13/20 17:13 IMPRESSION: No DVT demonstrated in bilateral lower extremity. Medications Medications Current Medications Generic Name Dose Route Start Last Admin Trade Name Willyq PRN Reason Stop Dose Admin Fluoxetine HCl 40 mg 06/14/20 09:00 06/23/20 10:02 Fluoxetine Hcl 20 Mg Capsule PO 40 mg DAILY ELISEO Administration Furosemide 40 mg 06/14/20 09:00 06/23/20 10:04 Furosemide 40 Mg Tablet PO 40 mg DAILY ELISEO Administration Protocol Gabapentin 400 mg 06/13/20 21:00 06/23/20 15:28 Gabapentin 400 Mg Capsule PO 400 mg TID ELISEO Administration Hydroxyzine HCl 25 mg 06/15/20 19:44 06/22/20 22:35 Hydroxyzine Hcl 25 Mg Tablet PO 25 mg BEDTIME PRN Administration Anxiety Lorazepam 0.5 mg 06/15/20 21:22 06/22/20 22:35 Lorazepam 0.5 Mg Tablet PO 0.5 mg TID PRN Administration anxiety Magnesium Hydroxide 30 ml 06/15/20 19:44 Milk Of Magnesia 30 Ml Oral.Susp PO DAILY PRN Constipation Omeprazole 40 mg 06/14/20 09:00 06/23/20 10:02 Omeprazole 40 Mg Capsule.Dr PO 40 mg DAILY ELISEO Administration Quetiapine Fumarate 50 mg 06/17/20 21:00 06/22/20 20:36 Quetiapine Fumarate 50 Mg Tablet PO 50 mg BEDTIME ELISEO Administration Spironolactone 50 mg 06/14/20 09:00 06/23/20 10:03 Spironolactone 25 Mg Tablet PO 50 mg DAILY ELISEO Administration Protocol Tizanidine HCl 4 mg 06/15/20 21:20 06/23/20 10:03 Tizanidine Hcl 4 Mg Tablet PO 4 mg Q6H PRN Administration muscle spasm Trazodone HCl 50 mg 06/15/20 19:44 06/22/20 22:35 Trazodone Hcl 50 Mg Tablet PO 50 mg BEDTIME PRN Administration Insomnia Allergies Allergies Allergy/AdvReac Type Severity Reaction Status Date / Time acetaminophen [From TYLENOL] Allergy Unknown UNK Verified 05/05/20 21:10 codeine [CODEINE] Allergy Unknown RASH Verified 05/05/20 21:10 pneumococcal vaccine Allergy Unknown PARALYSIS Verified 05/05/20 21:10 [PNEUMOCOCCAL VACCINE] tuberculin, purified protein Allergy Unknown RASH Verified 05/05/20 21:10 deriva [TUBERCULIN, PURIFIED PROTEIN DERIVA] venlafaxine [From EFFEXOR] AdvReac Unknown UNKNOWN Verified 05/05/20 21:10 Assessment & Plan Assessment & Plan (1) Chronic venous hypertension (idiopathic) with ulcer of left lower extremity: Status: Acute Code(s): I87.312 - Chronic venous hypertension (idiopathic) with ulcer of left lower extremity; L97.929 - Non-pressure chronic ulcer of unspecified part of left lower leg with unspecified severity (2) Major depression in partial remission: Status: Acute Code(s): F32.4 - Major depressive disorder, single episode, in partial remission (3) Opioid use disorder, moderate, in controlled environment: Status: Acute Code(s): F11.20 - Opioid dependence, uncomplicated (4) Depression: Status: Acute Code(s): F32.9 - Major depressive disorder, single episode, unspecified Greater than 50% of the session was spent on counseling and/or coordination of care
[2020-06-23 19:25] VITALS: BP 127/60; PULSE 60; TEMP 36.5
[2020-06-23] MEDS: hydrOXYzine HCL 25 MG TABLET PO (21:58)
[2020-06-23] MEDS: QUEtiapine Fumarate 50 MG TABLET PO (21:58)
[2020-06-23] MEDS: LORazepam 0.5 MG TABLET PO (21:59)
[2020-06-23] MEDS: traZODone HCL 50 MG TABLET PO (21:59)
[2020-06-24] MEDS: TiZANidine HCL 4 MG TABLET PO ×3 (04:14→20:10)
[2020-06-24 06:35] VITALS: BP 130/81; PULSE 54; RESP 18; TEMP 36.5; O2SAT 96
[2020-06-24 08:56] VITALS: BP 130/81; PULSE 54
[2020-06-24] MEDS: Spironolactone 25 MG TABLET 50 MG PO (08:56)
[2020-06-24] MEDS: FLUoxetine HCl 20 MG CAPSULE 40 MG PO (08:57)
[2020-06-24] MEDS: Gabapentin 400 MG CAPSULE PO ×3 (08:57→20:09)
[2020-06-24] MEDS: LORazepam 0.5 MG TABLET PO ×3 (08:57→20:10)
[2020-06-24] MEDS: Furosemide 40 MG TABLET PO (08:57)
[2020-06-24] MEDS: Omeprazole 40 MG CAPSULE.DR PO (08:57)
--- NOTE | 2020-06-24 15:45 | HO.PSYCHPN ---
Subjective Subjective Date of Service: 06/25/20 Reason For Visit: SI Subjective Notes: Conditional Voluntary Interim History: Pt discussed his concerns about medications. Reports, by history using 600 mg Quetiapine TID and 1 mg Klonopin TID. Discussed concerns about QTc and risks of overmedication as well as anxiety and insomnia. Discussed mirtazapine trial Medication Compliance: Intermittent Side effects from medications: No Attending Groups: No Review of Systems Cardiovascular: Reports leg ulcers and Reports leg edema (chronic venous htn, lle ulcer, rle traumatic laceration) Reports behavioral changes Psychiatric: Reports anxiety, Reports behavioral changes, Reports depression and Reports irritability Mental Status Exam Mental Status Exam Patient Appearance: Appropriate Patient Orientation: Person, Place, Time and Situation Level of Consciousness: Awake and Alert Patient Behavior: Talkative and Anxious Mood Description: Depressed, Anxious and Angry Affect Description: Flat Patient Cognition Impaired: Yes Ability to Follow Directions: Good Speech Pattern: Spontaneous Speech Memory Description: Remote Impaired and Episodic Impaired Hallucinations: None Delusions: Not Present Thought Process: Rumination Thought Content: positive for [place] and positive for Circumstantial Depressive Symptoms: Increased Anxiety, Insomnia and Increased Irritability Judgement: Fair Diagnostics Vital Signs (24Hr): Vital Signs - 24 hr 06/23/20 19:25 06/24/20 06:35 06/24/20 08:56 Temperature 97.7 F 97.7 F Pulse Rate 60 54 54 Respiratory Rate 18 Blood Pressure 127/60 130/81 130/81 Pulse Oximetry 96 Body Mass Index 29.2 Labs Results: 06/16/20 07:41 06/16/20 07:42 Imaging Radiology Impressions: ITS Impressions Venous Duplex 06/13/20 17:13 IMPRESSION: No DVT demonstrated in bilateral lower extremity. Medications Medications Current Medications Generic Name Dose Route Start Last Admin Trade Name Freq PRN Reason Stop Dose Admin Fluoxetine HCl 40 mg 06/14/20 09:00 06/24/20 08:57 Fluoxetine Hcl 20 Mg Capsule PO 40 mg DAILY ELISEO Administration Furosemide 40 mg 06/14/20 09:00 06/24/20 08:57 Furosemide 40 Mg Tablet PO 40 mg DAILY ELISEO Administration Protocol Gabapentin 400 mg 06/13/20 21:00 06/24/20 15:04 Gabapentin 400 Mg Capsule PO 400 mg TID ELISEO Administration Hydroxyzine HCl 25 mg 06/15/20 19:44 06/23/20 21:58 Hydroxyzine Hcl 25 Mg Tablet PO 25 mg BEDTIME PRN Administration Anxiety Lorazepam 0.5 mg 06/15/20 21:22 06/24/20 15:04 Lorazepam 0.5 Mg Tablet PO 0.5 mg TID PRN Administration anxiety Magnesium Hydroxide 30 ml 06/15/20 19:44 Milk Of Magnesia 30 Ml Oral.Susp PO DAILY PRN Constipation Mirtazapine 7.5 mg 06/24/20 21:00 Mirtazapine 7.5 Mg Tablet PO BEDTIME ELISEO Omeprazole 40 mg 06/14/20 09:00 06/24/20 08:57 Omeprazole 40 Mg Capsule.Dr PO 40 mg DAILY ELISEO Administration Quetiapine Fumarate 50 mg 06/17/20 21:00 06/23/20 21:58 Quetiapine Fumarate 50 Mg Tablet PO 50 mg BEDTIME ELISEO Administration Spironolactone 50 mg 06/14/20 09:00 06/24/20 08:56 Spironolactone 25 Mg Tablet PO 50 mg DAILY ELISEO Administration Protocol Tizanidine HCl 4 mg 06/15/20 21:20 06/24/20 11:17 Tizanidine Hcl 4 Mg Tablet PO 4 mg Q6H PRN Administration muscle spasm Trazodone HCl 50 mg 06/15/20 19:44 06/23/20 21:59 Trazodone Hcl 50 Mg Tablet PO 50 mg BEDTIME PRN Administration Insomnia Allergies Allergies Allergy/AdvReac Type Severity Reaction Status Date / Time acetaminophen [From TYLENOL] Allergy Unknown UNK Verified 05/05/20 21:10 codeine [CODEINE] Allergy Unknown RASH Verified 05/05/20 21:10 pneumococcal vaccine Allergy Unknown PARALYSIS Verified 05/05/20 21:10 [PNEUMOCOCCAL VACCINE] tuberculin, purified protein Allergy Unknown RASH Verified 05/05/20 21:10 deriva [TUBERCULIN, PURIFIED PROTEIN DERIVA] venlafaxine [From EFFEXOR] AdvReac Unknown UNKNOWN Verified 05/05/20 21:10 Assessment & Plan Assessment & Plan (1) Chronic venous hypertension (idiopathic) with ulcer of left lower extremity: Status: Acute Code(s): I87.312 - Chronic venous hypertension (idiopathic) with ulcer of left lower extremity; L97.929 - Non-pressure chronic ulcer of unspecified part of left lower leg with unspecified severity (2) Depression: Status: Acute Code(s): F32.9 - Major depressive disorder, single episode, unspecified Assessment and Plan: Mirtazapine 7.5 mg hs to target insomnia, anxiety. Pt reports hx of Seroquel 600 mg tid-Given QTc elevation, will attempt to keep Seroquel at 50 mg. Reports hx of Klonopin 1 mg tid-will attempt to work around benzodiazepine use given addiction history. (3) Opioid use disorder, moderate, in controlled environment: Status: Acute Code(s): F11.20 - Opioid dependence, uncomplicated Greater than 50% of the session was spent on counseling and/or coordination of care
[2020-06-24 16:25] VITALS: BP 115/60; PULSE 55; TEMP 36.4
[2020-06-24] MEDS: QUEtiapine Fumarate 50 MG TABLET PO (20:09)
[2020-06-24] MEDS: Mirtazapine 7.5 MG TABLET PO (20:09)
[2020-06-24] MEDS: traZODone HCL 50 MG TABLET PO (20:10)
[2020-06-25 06:15] VITALS: BP 116/64; PULSE 50; RESP 16; TEMP 36.2; O2SAT 98
[2020-06-25] MEDS: Furosemide 40 MG TABLET PO (08:37)
[2020-06-25] MEDS: FLUoxetine HCl 20 MG CAPSULE 40 MG PO (08:37)
[2020-06-25] MEDS: Gabapentin 400 MG CAPSULE PO ×3 (08:37→20:28)
[2020-06-25] MEDS: Omeprazole 40 MG CAPSULE.DR PO (08:37)
[2020-06-25 08:38] VITALS: BP 116/64; PULSE 50
[2020-06-25] MEDS: Spironolactone 25 MG TABLET 50 MG PO (08:38)
[2020-06-25] MEDS: TiZANidine HCL 4 MG TABLET PO ×2 (08:52→20:28)
[2020-06-25] MEDS: LORazepam 0.5 MG TABLET PO ×2 (10:35→20:28)
--- NOTE | 2020-06-25 16:10 | P.PNPSI_ITS ---
Subjective Subjective Date of Service: 06/25/20 Reason For Visit: SI Subjective Notes: Conditional Voluntary Interim History: Pt reports feeling some improvement. He continues to struggle with medicines, dosages wanting Klonopin 3 mg daily and Seroquel 1800 mg daily, but doing well without high doses. Discussed risks, again review of labs-will allow MVI and iron supplement. Hopes for discharge on 06/28 as he plans to live with his brother in [place] he states. Reports we can talk with brother or sister in law prior to discharge. Leg wounds he reports feel improved. He will allow VNA and is willing to continue with wound clinic appointments. Medication Compliance: Yes Side effects from medications: Yes (anxiety) Attending Groups: No Review of Systems Cardiovascular: Reports edema and Reports leg ulcers Psychiatric: Reports anxiety and Reports irritability Mental Status Exam Mental Status Exam Patient Appearance: Disheveled Patient Orientation: Person, Place, Time and Situation Level of Consciousness: Awake and Alert Patient Behavior: Appropriate and Anxious Mood Description: Anxious Affect Description: Flat Patient Cognition Impaired: Yes Ability to Follow Directions: Good Speech Pattern: Spontaneous Speech Memory Description: Episodic Impaired Hallucinations: None Delusions: Not Present Thought Process: Rumination Thought Content: positive for [place] and positive for Circumstantial Depressive Symptoms: Increased Anxiety and Increased Irritability Judgement: Fair Diagnostics Vital Signs (24Hr): Vital Signs - 24 hr 06/24/20 16:25 06/25/20 06:15 06/25/20 08:38 Temperature 97.6 F 97.2 F Pulse Rate 55 50 50 Respiratory Rate 16 Blood Pressure 115/60 116/64 116/64 Pulse Oximetry 98 Body Mass Index 29.2 Labs Results: 06/16/20 07:41 06/16/20 07:42 Imaging Radiology Impressions: ITS Impressions Venous Duplex 06/13/20 17:13 IMPRESSION: No DVT demonstrated in bilateral lower extremity. Medications Medications Current Medications Generic Name Dose Route Start Last Admin Trade Name Freq PRN Reason Stop Dose Admin Fluoxetine HCl 40 mg 06/14/20 09:00 06/25/20 08:37 Fluoxetine Hcl 20 Mg Capsule PO 40 mg DAILY ELISEO Administration Furosemide 40 mg 06/14/20 09:00 06/25/20 08:37 Furosemide 40 Mg Tablet PO 40 mg DAILY ELISEO Administration Protocol Gabapentin 400 mg 06/13/20 21:00 06/25/20 14:34 Gabapentin 400 Mg Capsule PO 400 mg TID ELISEO Administration Hydroxyzine HCl 25 mg 06/15/20 19:44 06/23/20 21:58 Hydroxyzine Hcl 25 Mg Tablet PO 25 mg BEDTIME PRN Administration Anxiety Lorazepam 0.5 mg 06/25/20 08:56 06/25/20 10:35 Lorazepam 0.5 Mg Tablet PO 0.5 mg Q8H PRN Administration Anxiety Magnesium Hydroxide 30 ml 06/15/20 19:44 Milk Of Magnesia 30 Ml Oral.Susp PO DAILY PRN Constipation Mirtazapine 7.5 mg 06/24/20 21:00 06/24/20 20:09 Mirtazapine 7.5 Mg Tablet PO 7.5 mg BEDTIME ELISEO Administration Omeprazole 40 mg 06/14/20 09:00 06/25/20 08:37 Omeprazole 40 Mg Capsule.Dr PO 40 mg DAILY ELISEO Administration Quetiapine Fumarate 50 mg 06/17/20 21:00 06/24/20 20:09 Quetiapine Fumarate 50 Mg Tablet PO 50 mg BEDTIME ELISEO Administration Spironolactone 50 mg 06/14/20 09:00 06/25/20 08:38 Spironolactone 25 Mg Tablet PO 50 mg DAILY ELISEO Administration Protocol Tizanidine HCl 4 mg 06/15/20 21:20 06/25/20 08:52 Tizanidine Hcl 4 Mg Tablet PO 4 mg Q6H PRN Administration muscle spasm Trazodone HCl 50 mg 06/15/20 19:44 06/24/20 20:10 Trazodone Hcl 50 Mg Tablet PO 50 mg BEDTIME PRN Administration Insomnia Allergies Allergies Allergy/AdvReac Type Severity Reaction Status Date / Time acetaminophen [From TYLENOL] Allergy Unknown UNK Verified 05/05/20 21:10 codeine [CODEINE] Allergy Unknown RASH Verified 05/05/20 21:10 pneumococcal vaccine Allergy Unknown PARALYSIS Verified 05/05/20 21:10 [PNEUMOCOCCAL VACCINE] tuberculin, purified protein Allergy Unknown RASH Verified 05/05/20 21:10 deriva [TUBERCULIN, PURIFIED PROTEIN DERIVA] venlafaxine [From EFFEXOR] AdvReac Unknown UNKNOWN Verified 05/05/20 21:10 Assessment & Plan Assessment & Plan (1) Chronic venous hypertension (idiopathic) with ulcer of left lower extremity: Status: Acute Code(s): I87.312 - Chronic venous hypertension (idiopathic) with ulcer of left lower extremity; L97.929 - Non-pressure chronic ulcer of unspecified part of left lower leg with unspecified severity (2) Depression: Status: Acute Code(s): F32.9 - Major depressive disorder, single episode, unspecified (3) Opioid use disorder, moderate, in controlled environment: Status: Acute Code(s): F11.20 - Opioid dependence, uncomplicated Greater than 50% of the session was spent on counseling and/or coordination of care Reason for contiued inpatient stay Substantial Risk for: harm to self, inability to function, rapid decompensation and med/psych decompensation
[2020-06-25 16:35] VITALS: BP 100/58; PULSE 58; TEMP 36.6
[2020-06-25] MEDS: QUEtiapine Fumarate 50 MG TABLET PO (20:28)
[2020-06-25] MEDS: traZODone HCL 50 MG TABLET PO (20:28)
[2020-06-25] MEDS: hydrOXYzine HCL 25 MG TABLET PO (20:28)
[2020-06-25] MEDS: Mirtazapine 7.5 MG TABLET PO (20:28)
[2020-06-26 06:45] VITALS: BP 113/69; PULSE 57; RESP 18; TEMP 36.3; O2SAT 95
[2020-06-26] MEDS: Furosemide 40 MG TABLET PO (09:36)
[2020-06-26] MEDS: TiZANidine HCL 4 MG TABLET PO ×3 (09:36→20:38)
[2020-06-26] MEDS: Ferrous Sulfate 324 MG TABLET.DR PO (09:37)
[2020-06-26] MEDS: LORazepam 0.5 MG TABLET PO ×2 (09:37→20:38)
[2020-06-26] MEDS: FLUoxetine HCl 20 MG CAPSULE 40 MG PO (09:37)
[2020-06-26] MEDS: Spironolactone 25 MG TABLET 50 MG PO (09:37)
[2020-06-26] MEDS: Gabapentin 400 MG CAPSULE PO ×3 (09:37→20:38)
[2020-06-26] MEDS: Omeprazole 40 MG CAPSULE.DR PO (09:37)
[2020-06-26] MEDS: Ibuprofen 400 MG TABLET PO ×2 (14:48→20:45)
[2020-06-26 16:32] VITALS: BP 109/54; PULSE 87; TEMP 36.4
--- NOTE | 2020-06-26 17:58 | HO.PSYCHPN ---
Subjective Subjective Date of Service: 06/26/20 Reason For Visit: SI Interim History: Pt stable. Feels ready for DC on Mon. No complaints. Ibuprofen for pain. Review of Systems Review of Systems Constitutional: No Fever, No Chills ENT/Mouth: No sore throat, No Rhinorrhea, No Swallowing Difficulty Eyes: No Eye Pain, No Swelling, No Redness Cardiovascular: No Chest Pain, No SOB, No Orthopnea, No Edema Respiratory: No Cough, No Sputum, No Wheezing, No dyspnea Gastrointestinal: No Nausea, No Vomiting, No Diarrhea, No abdominal Pain, No Hematochezia, No Melena Genitourinary: No Dysuria, No Urinary Frequency, No Hematuria Musculoskeletal: No joint pain, No Myalgias Skin: + Skin Lesions, No rash Neuro: No Weakness, No Numbness, No Dizziness, + Headache Psych: + Anxiety/Panic, + Depression Heme/Lymph: No Bruising, No Lymphadenopathy Endocrine: No Polyuria, No Polydipsia Cardiovascular: Reports edema, Reports claudication, Reports leg ulcers, Reports leg edema (chronic venous htn, lle ulcer, rle traumatic laceration) and Reports other (Chronic venous HTN with LLE ulcer and R traumatic Laceration) Reports behavioral changes and Reports memory loss Psychiatric: Reports anxiety, Reports behavioral changes, Reports depression, Reports difficulty concentrating, Reports hopelessness, Reports irritability, Reports anhedonia, Reports memory loss, Reports mood swings and Reports paranoia Mental Status Exam Mental Status Exam Patient Appearance: Disheveled Patient Orientation: Person, Place, Time and Situation Level of Consciousness: Awake and Alert Patient Behavior: Appropriate and Anxious Mood Description: Anxious Affect Description: Flat Patient Cognition Impaired: Yes Ability to Follow Directions: Good Speech Pattern: Spontaneous Speech Memory Description: Episodic Impaired Diagnostics Vital Signs (24Hr): Vital Signs - 24 hr 06/26/20 06:45 06/26/20 16:32 Temperature 97.4 F 97.6 F Pulse Rate 57 87 Respiratory Rate 18 Blood Pressure 113/69 109/54 L Pulse Oximetry 95 Body Mass Index 29.2 Labs Results: 06/16/20 07:41 06/16/20 07:42 Imaging Radiology Impressions: ITS Impressions Venous Duplex 06/13/20 17:13 IMPRESSION: No DVT demonstrated in bilateral lower extremity. Medications Medications Current Medications Generic Name Dose Route Start Last Admin Trade Name Freq PRN Reason Stop Dose Admin Ferrous Sulfate 324 mg 06/26/20 09:00 06/26/20 09:37 Ferrous Sulfate 324 Mg Tablet. PO 324 mg DAILY ELISEO Administration Fluoxetine HCl 40 mg 06/14/20 09:00 06/26/20 09:37 Fluoxetine Hcl 20 Mg Capsule PO 40 mg DAILY ELISEO Administration Furosemide 40 mg 06/14/20 09:00 06/26/20 09:36 Furosemide 40 Mg Tablet PO 40 mg DAILY ELISEO Administration Protocol Gabapentin 400 mg 06/13/20 21:00 06/26/20 14:48 Gabapentin 400 Mg Capsule PO 400 mg TID ELISEO Administration Hydroxyzine HCl 25 mg 06/15/20 19:44 06/25/20 20:28 Hydroxyzine Hcl 25 Mg Tablet PO 25 mg BEDTIME PRN Administration Anxiety Ibuprofen 400 mg 06/26/20 13:17 06/26/20 14:48 Ibuprofen 400 Mg Tablet PO 400 mg Q6H PRN Administration Pain, Moderate (Pain Scale 4-6 Lorazepam 0.5 mg 06/25/20 08:56 06/26/20 09:37 Lorazepam 0.5 Mg Tablet PO 0.5 mg Q8H PRN Administration Anxiety Magnesium Hydroxide 30 ml 06/15/20 19:44 Milk Of Magnesia 30 Ml Oral.Susp PO DAILY PRN Constipation Mirtazapine 7.5 mg 06/24/20 21:00 06/25/20 20:28 Mirtazapine 7.5 Mg Tablet PO 7.5 mg BEDTIME ELISEO Administration Multivitamins/Minerals 1 tab 06/26/20 09:00 06/26/20 09:36 Multivitamin With Minerals Tablet PO 1 tab DAILY ELISEO Administration Omeprazole 40 mg 06/14/20 09:00 06/26/20 09:37 Omeprazole 40 Mg Capsule. PO 40 mg DAILY ELISEO Administration Quetiapine Fumarate 50 mg 06/17/20 21:00 06/25/20 20:28 Quetiapine Fumarate 50 Mg Tablet PO 50 mg BEDTIME ELISEO Administration Spironolactone 50 mg 06/14/20 09:00 06/26/20 09:37 Spironolactone 25 Mg Tablet PO 50 mg DAILY ELISEO Administration Protocol Tizanidine HCl 4 mg 06/15/20 21:20 06/26/20 14:48 Tizanidine Hcl 4 Mg Tablet PO 4 mg Q6H PRN Administration muscle spasm Trazodone HCl 50 mg 06/15/20 19:44 06/25/20 20:28 Trazodone Hcl 50 Mg Tablet PO 50 mg BEDTIME PRN Administration Insomnia Allergies Allergies Allergy/AdvReac Type Severity Reaction Status Date / Time acetaminophen [From TYLENOL] Allergy Unknown UNK Verified 05/05/20 21:10 codeine [CODEINE] Allergy Unknown RASH Verified 05/05/20 21:10 pneumococcal vaccine Allergy Unknown PARALYSIS Verified 05/05/20 21:10 [PNEUMOCOCCAL VACCINE] tuberculin, purified protein Allergy Unknown RASH Verified 05/05/20 21:10 deriva [TUBERCULIN, PURIFIED PROTEIN DERIVA] venlafaxine [From EFFEXOR] AdvReac Unknown UNKNOWN Verified 05/05/20 21:10 Assessment & Plan Assessment & Plan (1) Chronic venous hypertension (idiopathic) with ulcer of left lower extremity: Status: Acute Code(s): I87.312 - Chronic venous hypertension (idiopathic) with ulcer of left lower extremity; L97.929 - Non-pressure chronic ulcer of unspecified part of left lower leg with unspecified severity (2) Depression: Status: Acute Code(s): F32.9 - Major depressive disorder, single episode, unspecified Assessment and Plan: Mirtazapine 7.5 mg hs to target insomnia, anxiety. Pt reports hx of Seroquel 600 mg tid-Given QTc elevation, will attempt to keep Seroquel at 50 mg. Reports hx of Klonopin 1 mg tid-will attempt to work around benzodiazepine use given addiction history. (3) Opioid use disorder, moderate, in controlled environment: Status: Acute Code(s): F11.20 - Opioid dependence, uncomplicated Greater than 50% of the session was spent on counseling and/or coordination of care Reason for contiued inpatient stay Substantial Risk for: inability to function
[2020-06-26] MEDS: Mirtazapine 7.5 MG TABLET PO (20:37)
[2020-06-26] MEDS: traZODone HCL 50 MG TABLET PO (20:38)
[2020-06-26] MEDS: QUEtiapine Fumarate 50 MG TABLET PO (20:38)
[2020-06-26] MEDS: hydrOXYzine HCL 25 MG TABLET PO (20:38)
[2020-06-27 06:00] VITALS: BP 113/59; PULSE 53; TEMP 21.1
--- NOTE | 2020-06-27 08:12 | HO.PSYCHPN ---
Subjective Subjective Date of Service: 06/27/20 Reason For Visit: SI Interim History: Pt stable. Feels ready for DC on Mon. No complaints. Ibuprofen for pain. Review of Systems Review of Systems Constitutional: No Fever, No Chills ENT/Mouth: No sore throat, No Rhinorrhea, No Swallowing Difficulty Eyes: No Eye Pain, No Swelling, No Redness Cardiovascular: No Chest Pain, No SOB, No Orthopnea, No Edema Respiratory: No Cough, No Sputum, No Wheezing, No dyspnea Gastrointestinal: No Nausea, No Vomiting, No Diarrhea, No abdominal Pain, No Hematochezia, No Melena Genitourinary: No Dysuria, No Urinary Frequency, No Hematuria Musculoskeletal: No joint pain, No Myalgias Skin: + Skin Lesions, No rash Neuro: No Weakness, No Numbness, No Dizziness, + Headache Psych: + Anxiety/Panic, + Depression Heme/Lymph: No Bruising, No Lymphadenopathy Endocrine: No Polyuria, No Polydipsia Cardiovascular: Reports edema, Reports claudication, Reports leg ulcers, Reports leg edema (chronic venous htn, lle ulcer, rle traumatic laceration) and Reports other (Chronic venous HTN with LLE ulcer and R traumatic Laceration) Reports behavioral changes and Reports memory loss Psychiatric: Reports anxiety, Reports behavioral changes, Reports depression, Reports difficulty concentrating, Reports hopelessness, Reports irritability, Reports anhedonia, Reports memory loss, Reports mood swings and Reports paranoia Mental Status Exam Mental Status Exam Patient Appearance: Disheveled Patient Orientation: Person, Place, Time and Situation Level of Consciousness: Awake and Alert Patient Behavior: Appropriate and Anxious Mood Description: Anxious Affect Description: Flat Patient Cognition Impaired: Yes Ability to Follow Directions: Good Speech Pattern: Spontaneous Speech Memory Description: Episodic Impaired Diagnostics Vital Signs (24Hr): Vital Signs - 24 hr 06/26/20 16:32 06/27/20 06:00 Temperature 97.6 F 69.9 F L Pulse Rate 87 53 Blood Pressure 109/54 L 113/59 L Body Mass Index 29.2 Labs Results: 06/16/20 07:41 06/16/20 07:42 Imaging Radiology Impressions: ITS Impressions Venous Duplex 06/13/20 17:13 IMPRESSION: No DVT demonstrated in bilateral lower extremity. Medications Medications Current Medications Generic Name Dose Route Start Last Admin Trade Name Freq PRN Reason Stop Dose Admin Ferrous Sulfate 324 mg 06/26/20 09:00 06/26/20 09:37 Ferrous Sulfate 324 Mg Tablet. PO 324 mg DAILY ELISEO Administration Fluoxetine HCl 40 mg 06/14/20 09:00 06/26/20 09:37 Fluoxetine Hcl 20 Mg Capsule PO 40 mg DAILY ELISEO Administration Furosemide 40 mg 06/14/20 09:00 06/26/20 09:36 Furosemide 40 Mg Tablet PO 40 mg DAILY ELISEO Administration Protocol Gabapentin 400 mg 06/13/20 21:00 06/26/20 20:38 Gabapentin 400 Mg Capsule PO 400 mg TID ELISEO Administration Hydroxyzine HCl 25 mg 06/15/20 19:44 06/26/20 20:38 Hydroxyzine Hcl 25 Mg Tablet PO 25 mg BEDTIME PRN Administration Anxiety Ibuprofen 400 mg 06/26/20 13:17 06/26/20 20:45 Ibuprofen 400 Mg Tablet PO 400 mg Q6H PRN Administration Pain, Moderate (Pain Scale 4-6 Lorazepam 0.5 mg 06/25/20 08:56 06/26/20 20:38 Lorazepam 0.5 Mg Tablet PO 0.5 mg Q8H PRN Administration Anxiety Magnesium Hydroxide 30 ml 06/15/20 19:44 Milk Of Magnesia 30 Ml Oral.Susp PO DAILY PRN Constipation Mirtazapine 7.5 mg 06/24/20 21:00 06/26/20 20:37 Mirtazapine 7.5 Mg Tablet PO 7.5 mg BEDTIME ELISEO Administration Multivitamins/Minerals 1 tab 06/26/20 09:00 06/26/20 09:36 Multivitamin With Minerals Tablet PO 1 tab DAILY ELISEO Administration Omeprazole 40 mg 06/14/20 09:00 06/26/20 09:37 Omeprazole 40 Mg Capsule. PO 40 mg DAILY ELISEO Administration Quetiapine Fumarate 50 mg 06/17/20 21:00 06/26/20 20:38 Quetiapine Fumarate 50 Mg Tablet PO 50 mg BEDTIME ELISEO Administration Spironolactone 50 mg 06/14/20 09:00 06/26/20 09:37 Spironolactone 25 Mg Tablet PO 50 mg DAILY ELISEO Administration Protocol Tizanidine HCl 4 mg 06/15/20 21:20 06/26/20 20:38 Tizanidine Hcl 4 Mg Tablet PO 4 mg Q6H PRN Administration muscle spasm Trazodone HCl 50 mg 06/15/20 19:44 06/26/20 20:38 Trazodone Hcl 50 Mg Tablet PO 50 mg BEDTIME PRN Administration Insomnia Allergies Allergies Allergy/AdvReac Type Severity Reaction Status Date / Time acetaminophen [From TYLENOL] Allergy Unknown UNK Verified 05/05/20 21:10 codeine [CODEINE] Allergy Unknown RASH Verified 05/05/20 21:10 pneumococcal vaccine Allergy Unknown PARALYSIS Verified 05/05/20 21:10 [PNEUMOCOCCAL VACCINE] tuberculin, purified protein Allergy Unknown RASH Verified 05/05/20 21:10 deriva [TUBERCULIN, PURIFIED PROTEIN DERIVA] venlafaxine [From EFFEXOR] AdvReac Unknown UNKNOWN Verified 05/05/20 21:10 Assessment & Plan Assessment & Plan (1) Chronic venous hypertension (idiopathic) with ulcer of left lower extremity: Status: Acute Code(s): I87.312 - Chronic venous hypertension (idiopathic) with ulcer of left lower extremity; L97.929 - Non-pressure chronic ulcer of unspecified part of left lower leg with unspecified severity (2) Depression: Status: Acute Code(s): F32.9 - Major depressive disorder, single episode, unspecified Assessment and Plan: Mirtazapine 7.5 mg hs to target insomnia, anxiety. Pt reports hx of Seroquel 600 mg tid-Given QTc elevation, will attempt to keep Seroquel at 50 mg. Reports hx of Klonopin 1 mg tid-will attempt to work around benzodiazepine use given addiction history. (3) Opioid use disorder, moderate, in controlled environment: Status: Acute Code(s): F11.20 - Opioid dependence, uncomplicated Greater than 50% of the session was spent on counseling and/or coordination of care Reason for contiued inpatient stay Substantial Risk for: inability to function and med/psych decompensation
[2020-06-27] MEDS: Furosemide 40 MG TABLET PO (08:46)
[2020-06-27] MEDS: Omeprazole 40 MG CAPSULE.DR PO (08:46)
[2020-06-27] MEDS: FLUoxetine HCl 20 MG CAPSULE 40 MG PO (08:46)
[2020-06-27] MEDS: TiZANidine HCL 4 MG TABLET PO ×3 (08:47→20:16)
[2020-06-27] MEDS: Gabapentin 400 MG CAPSULE PO ×3 (08:47→20:16)
[2020-06-27] MEDS: Spironolactone 25 MG TABLET 50 MG PO (08:47)
[2020-06-27] MEDS: LORazepam 0.5 MG TABLET PO ×2 (08:47→14:41)
[2020-06-27] MEDS: Ferrous Sulfate 324 MG TABLET.DR PO (08:47)
[2020-06-27] MEDS: Ibuprofen 400 MG TABLET PO ×2 (13:59→20:17)
[2020-06-27 17:29] VITALS: BP 106/58; PULSE 52; TEMP 36.8
[2020-06-27] MEDS: QUEtiapine Fumarate 50 MG TABLET PO (20:16)
[2020-06-27] MEDS: Mirtazapine 7.5 MG TABLET PO (20:16)
[2020-06-27] MEDS: hydrOXYzine HCL 25 MG TABLET PO (20:16)
[2020-06-27] MEDS: traZODone HCL 50 MG TABLET PO (20:16)
[2020-06-28 06:30] VITALS: BP 138/76; PULSE 58; RESP 18; TEMP 36.3; O2SAT 99
[2020-06-28] MEDS: FLUoxetine HCl 20 MG CAPSULE 40 MG PO (08:34)
[2020-06-28] MEDS: Omeprazole 40 MG CAPSULE.DR PO (08:34)
[2020-06-28] MEDS: Gabapentin 400 MG CAPSULE PO (08:35)
[2020-06-28] MEDS: LORazepam 0.5 MG TABLET PO (08:35)
[2020-06-28] MEDS: Ferrous Sulfate 324 MG TABLET.DR PO (08:35)
[2020-06-28] MEDS: Spironolactone 25 MG TABLET 50 MG PO (08:35)
[2020-06-28] MEDS: Furosemide 40 MG TABLET PO (08:35)
[2020-06-28] MEDS: TiZANidine HCL 4 MG TABLET PO (08:35)
--- NOTE | 2020-06-28 12:18 | PC.NURSE ---
PT IS MED COMPLIANT. PT REPORTS NO AUDITORY OR VISUAL HALLUCINATIONS. PT DENIES URGES TO HARM HIMSELF OR OTHERS. PT REPORTS HIS DEPRESSION A 6/10 BUT IT IS IMPROVING. PT RATES HIS DEPRESSION AT A 4/10 WITH IMPROVEMENT. PT EXPERIENCING NO SUICIDAL IDEATIONS AT THE TIME. PT HAS BEEN EATING AND SLEEPING ADEQUATELY. PT HAS BEEN LESS LABILE THAN UPON ADMISSION. PT HAS BEEN CALM AND COOPERATIVE. PT HAS BEEN INVOLVED WITH HIS TREATMENT PLAN AND VERBALLY UNDERSTANDS WHAT NEEDS TO BE DONE FOR HIS CARE. PT WILL DISCHARGE ON 06/28/2020 AT 1230, BEING PICKED UP BY HIS SON. HE HAS FAMILY SUPPORT INCLUDING HIS SON, UNCLE, NIECE AND DAUGHTER IN LAW. PTS LEG WOUNDS HAVE IMPROVED WITH DAILY DRESSING CHANGES WHILE ON THE UNIT. PT HAS BEEN SET UP WITH PROVIDERS WELL A VISITING NURSE FOR WOUND CARE. PT IS BEING REFERRED TO FOLLOW UP WITH WOUND CARE CENTER AND VERBALLY UNDERSTANDS. PT IS AWARE AND READY FOR DISCHARGE. HE IS FEELING OPTIMISTIC ABOUT HIS ABILITY TO CARE FOR HIMSELF THIS TIME. PTS PRESCRIPTIONS HAVE BEEN SENT TO HIS PHARMACY. PTS PAPERWORK WILL BE FAXED WO PROVIDERS PER PROTOCOL.
--- NOTE | 2020-06-28 13:15 | MHC.RECOVRN ---
Recovery Support Note: T/w attempted to meet with pt to discuss substance use and MOUD options. Pt immediatley stated No thanks, I'll pass. Pt continued to report hx of Suboxone and Vivitrol. Pt states I've been clean for 3 weeks, I don't want to take anything. T/w attempted to engage pt in further discussion, however, pt was not interested. Pt did take resources and information regarding outpatient treatment and MOUD. T/w card was given to patient if pt would like to discuss treatment options further.
--- NOTE | 2020-06-29 09:57 | P.DS_ITS ---
DS: Providers Provider Date of Service: 07/10/20 Date of admission: 06/15/20 19:44 Primary care physician: No PCP Consults: 06/15/20 20:09 Consult to Wound Care Provider Routine Consulting Provider: [facility] Reason for consultation: stage 3 ulcer bilat LE Has provider been notified: Yes 06/16/20 12:38 Consult to Wound Care Provider Routine Consulting Provider: Ny Estes Reason for consultation: leg ulcers Has provider been notified: No 06/28/20 09:49 Addiction Medicine Routine Consulting Provider: Yana South Reason for consultation: opiate dependence-suboxone- pt to discharge today Has provider been notified: No DS: Diagnosis Discharge Diagnosis (1) Chronic venous hypertension (idiopathic) with ulcer of left lower extremity: Status: Acute Problem details: Left anterior tibial venous ulcer Right traumatic laceration confounded by venous disease (2) Depression: Status: Acute Problem details: 59 yo male, homeless with SI, plan, intent to shoot himself. UTox + opiates with hx of OUD. 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 Hx of admissions to [facility] [place] with precipitous discharges via TDN and refusal of resources, placement upon discharge. (3) PTSD (post-traumatic stress disorder): Status: Acute Problem details: hx of childhood trauma, trauma and trauma while incarcerated. DS: Medications Discharge Medications Home Medications: Previous Rx's Medication Instructions Recorded ferrous sulfate 324 mg PO DAILY #30 tab 06/28/20 fluoxetine 40 mg PO DAILY #30 cap 06/28/20 furosemide 40 mg PO DAILY #30 tab 06/28/20 gabapentin 400 mg PO TID #90 cap 06/28/20 lorazepam 0.5 mg PO Q8H PRN #15 tab 06/28/20 mirtazapine 7.5 mg PO BEDTIME #30 tab 06/28/20 multivitamin,tx-minerals [Vitamins 1 tab PO DAILY #30 tab 06/28/20 and Minerals] omeprazole 40 mg PO DAILY #30 cap 06/28/20 quetiapine 50 mg PO BEDTIME #30 tab 06/28/20 quetiapine [Seroquel] 50 mg PO DAILY PRN #14 tab 06/28/20 spironolactone 50 mg PO DAILY #30 tab 06/28/20 tizanidine 4 mg PO Q8H PRN #30 cap 06/28/20 Discharge Plan Discharge Anticipated Discharge Date/Time: 06/28/20 16:00 Patient Disposition: Home Health Service Referrals: Shilpa Osman (therapist) [Other] - 07/03/20 1:00 pm (Telehealth appointment) Janette Kincaid (psychiatrist) [Other] - 07/23/20 3:00 pm (Telehealth appointment) Janette Kincaid (psychiatrist) [Other] - 08/18/20 2:00 pm (Telehealth appointment) Physician,Unknown [Primary Care Provider] - Discharge Medications: New ferrous sulfate 324 mg (65 mg iron) Tablet,Delayed Release (Dr/Ec) 324 mg PO DAILY Qty: 30 RF: 0 gabapentin 400 mg Capsule 400 mg PO TID Qty: 90 RF: 0 lorazepam 0.5 mg Tablet 0.5 mg PO Q8H PRN (Reason: Anxiety) Qty: 15 RF: 1 mirtazapine 7.5 mg Tablet 7.5 mg PO BEDTIME Qty: 30 RF: 0 tizanidine 4 mg capsule 4 mg PO Q8H PRN (Reason: muscle spasticity) Qty: 30 RF: 0 quetiapine [Seroquel] 50 mg tablet 50 mg PO DAILY PRN (Reason: agitation) Qty: 14 RF: 1 Narcan 4 mg/actuation spray,non-aerosol 4 mg intranasal Q2M PRN (Reason: opioid overdose) Qty: 2 RF: 0 Continued furosemide 40 mg Tablet 40 mg PO DAILY Qty: 30 RF: 0 omeprazole 40 mg Capsule,Delayed Release(Dr/Ec) 40 mg PO DAILY Qty: 30 RF: 0 fluoxetine 20 mg capsule 40 mg PO DAILY Qty: 30 RF: 0 spironolactone 50 mg Tablet 50 mg PO DAILY Qty: 30 RF: 0 Discontinued trazodone 50 mg Tablet 50 mg PO BEDTIME PRN (Reason: Insomnia) Qty: 1 RF: 0 tizanidine 4 mg Tablet 4 mg PO Q4H PRN (Reason: Muscle Spasm) Qty: 1 RF: 0 buprenorphine-naloxone [Suboxone] 4-1 mg film 1.5 film sublingual BID 3 Days Qty: 9 RF: 0 lorazepam 1 mg tablet 1 mg PO TID PRN (Reason: anxiety) 3 Days Qty: 9 RF: 0 quetiapine 100 mg Tablet 100 mg PO BEDTIME RF: 0 quetiapine 50 mg Tablet 50 mg PO TID PRN (Reason: Agitation) RF: 0 gabapentin 400 mg Tablet 400 mg PO TID RF: 0 No Action hydroxyzine HCl 25 mg Tablet 25 mg PO BEDTIME PRN (Reason: Anxiety) RF: 0 Certavite-Antioxidant 18-400 mg-mcg Tablet 1 tab PO DAILY RF: 0 buprenorphine-naloxone [Suboxone] 8-2 mg film 1 film sublingual DAILY Qty: 30 RF: 0 Discharge Orders: Discharge Order (Routine); Ordered 06/28/20 Ordered By: Jocy Valencia Diet: advance to usual diet Activity on Discharge: As tolerated Stand Alone Forms: Patient Portal Discharge page Print Language: Kinyarwanda Care Plan Goals: Mood stability Sobriety Follow up with medical care Health Concerns: Wound care for both of your legs-[facility] anemia-follow up with your primary care team Plan of Treatment: Continue medications Follow up with providers You have declined addictions treatment. You have declined referral for Suboxone. Follow up with primary care team VNA follow up to be scheduled Discharge Date/Time: 06/28/20 12:30 Mental Status Exam Mental Status Exam Patient Appearance: Disheveled Patient Orientation: Person, Place, Time and Situation Level of Consciousness: Awake and Alert Patient Behavior: Talkative, Suspicious, Belligerent, Verbal Threats (angry that team asked to validate his discharge plans with family), Swearing and Avoidant Mood Description: Angry Affect Description: Calm, Constricted and Angry Patient Cognition Impaired: No Ability to Follow Directions: Good Speech Pattern: Spontaneous Speech Memory Description: Episodic Impaired Hallucinations: None Delusions: Not Present Thought Process: Distracted Thought Content: positive for [place] and positive for Circumstantial Depressive Symptoms: Increased Irritability Judgement: Good Data Data Completed and Pending Completed studies during hospitalization [Text1]: 06/13/20 21:13 Blood - Venous Blood Culture - Final No growth after 5 days. 06/13/20 21:06 Blood - Venous Blood Culture - Final No growth after 5 days. Imaging Diagnostic Imaging Impressions Venous Duplex 06/13/20 17:13 IMPRESSION: No DVT demonstrated in bilateral lower extremity. DS: Summary Hospital Course Hospital Course: Pt was seen in consultation by the wound center. A plan of care was created and initially pt was refusing of that care. The nursing team worked to educate and promote the plan of care which pt did accept and participate in. Medications were titrated to lowest effective dosing to assist pt in cognitive clarity, decrease of depressive symptoms and management of anxiety. real estate services coordinator located options for supportive living with nursing care upon discharge and pt was willing until he reported he had an option to live with his brother in [place]. 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 Pt's son became involved at the end of his admission and facilitated transfer to brother's home where pt will live. Follow up appointments were scheduled. Time spent discussing smoking cessation with patient: 3 to 10 minutes Status at Discharge Cognitive/behavioral status at discharge: alert, oriented, non-psychotic, non- suicidal, non-homicidal Functional status at discharge: independent ambulation Overall status at discharge: patient is progressing back to baseline Time Spent with Patient Time attestation: Total time spent providing and/or coordinating discharge services: 60 Time spent: Greater than 30 minutes
== END 2020-06-28 12:30 | disposition home health service (06) | DRG 751 ==
LOC: HO.ED 16:44 → HO.PM5 06-15 20:00
PROVIDERS: Physician Assistant; Admitting Provider Social Worker; Emergency Provider Emergency Medicine; Visit Provider Clinical Nurse Specialist Psychiatric/Mental Health, Adult
DX: F32.4 Major depressive disorder, single episode, in partial remission (principal); R45.851 Suicidal ideations; F11.20 Opioid dependence, uncomplicated; I67.89 Other cerebrovascular disease; I69.81 Cognitive deficits following other cerebrovascular disease; I87.312 Chronic venous hypertension (idiopathic) with ulcer of left lower extremity; F17.210 Nicotine dependence, cigarettes, uncomplicated; L97.829 Non-pressure chronic ulcer of other part of left lower leg with unspecified severity; Z20.822 Contact with and (suspected) exposure to COVID-19; Z59.0 Homelessness; Z71.6 Tobacco abuse counseling; Z88.5 Allergy status to narcotic agent; Z88.6 Allergy status to analgesic agent; Z79.899 Other long term (current) drug therapy
CPT/HCPCS: 36415; 80048; 80053; 80061; 80076; 80307; 80320; 81003; 82140; 82150; 82607; 82746; 83540; 83605; 83690; 83735; 84443; 85025; 87040; 87635; 93005; 93970; 99232; 99284

== ENCOUNTER 2020-06-29 12:42 | Emergency (ER) | payer MEDICAID, SELFPAY ==
[2020-06-29] VITALS (7 sets, daily range): BP systolic 97–177; BP diastolic 44–80; PULSE 62–120; RESP 14–18; TEMP 36.5–36.9; O2SAT 91–98; BMI 65.7
--- NOTE | 2020-06-29 13:16 | ED.GENADULT ---
HPI - General Adult General Chief complaint: Weakness Stated complaint: EAK/DIZZY S/P HEROIN USE Time Seen by Provider: 06/29/20 13:16 Source: patient and EMS Mode of arrival: EMS Limitations: no limitations History of Present Illness HPI narrative: 59 yo male just DC from [facility] yesterday c/o using heroin and was wobbling, EMS called no narcan given, asking for his wounds to be changed MD complaint: used heroin was wobbly, also asking wounds to be changed Onset (ago): hour(s) (just [employer]) Radiation: non-radiation Severity: mild Relieving factors: none Exacerbating factors: none Associated symptoms: denies other symptoms Treatments prior to arrival: none Related Data Home Medications Medication Instructions Recorded Confirmed hydroxyzine HCl 25 mg PO BEDTIME PRN 06/29/20 06/29/20 nsctanngviro-[id number] acid 1 tab PO DAILY 06/29/20 06/29/20 [Certavite-Antioxidant] Previous Rx's Medication Instructions Recorded ferrous sulfate 324 mg PO DAILY #30 tab 06/28/20 fluoxetine 40 mg PO DAILY #30 cap 06/28/20 furosemide 40 mg PO DAILY #30 tab 06/28/20 gabapentin 400 mg PO TID #90 cap 06/28/20 lorazepam 0.5 mg PO Q8H PRN #15 tab 06/28/20 mirtazapine 7.5 mg PO BEDTIME #30 tab 06/28/20 omeprazole 40 mg PO DAILY #30 cap 06/28/20 quetiapine [Seroquel] 50 mg PO DAILY PRN #14 tab 06/28/20 spironolactone 50 mg PO DAILY #30 tab 06/28/20 tizanidine 4 mg PO Q8H PRN #30 cap 06/28/20 naloxone [Narcan] 4 mg INTRANASAL Q2M PRN #2 ea 06/29/20 Allergies Allergy/AdvReac Type Severity Reaction Status Date / Time acetaminophen [From TYLENOL] Allergy Unknown UNK Verified 05/05/20 21:10 codeine [CODEINE] Allergy Unknown RASH Verified 05/05/20 21:10 pneumococcal vaccine Allergy Unknown PARALYSIS Verified 05/05/20 21:10 [PNEUMOCOCCAL VACCINE] tuberculin, purified protein Allergy Unknown RASH Verified 05/05/20 21:10 deriva [TUBERCULIN, PURIFIED PROTEIN DERIVA] venlafaxine [From EFFEXOR] AdvReac Unknown UNKNOWN Verified 05/05/20 21:10 Review of Systems Review of Systems: Constitutional : No Fever, No Chills ENT/Mouth : No sore throat, No Rhinorrhea Eyes: No Eye Pain, No Swelling, No Redness Cardiovascular : No Chest Pain, No SOB Respiratory : No Cough, No Sputum Gastrointestinal : No Nausea, No Vomiting, No Diarrhea, No abdominal Pain Genitourinary : No Dysuria, No Hematuria Musculoskeletal : No joint pain, No Myalgias, No Joint Swelling Skin : pos Skin Lesions, no skin rash Neuro : No Weakness, No Numbness, No Headache Psych : No Anxiety, No Depression Heme/Lymph: No Bruising, No Bleeding,No Lymphadenopathy Endocrine : No Polyuria, No Polydipsia All other systems reviewed and are negative [facility] Past Medical History Attestation statement: The following information was validated with the patient. Medical History Anxiety Depression Diet-controlled diabetes mellitus Hepatitis C virus HTN (hypertension) Liver cirrhosis Major depress dis, severe Neuropathy Suicidal ideations Venous stasis dermatitis Surgical History H/O splenectomy Hx of cholecystectomy S/P correction of deviated nasal septum Family History Family History Father Diabetes Social History Social History Household Members: None Housing: Homeless Alcohol intake: former Smoking Status: Current some day smoker Tobacco Type: Cigarette Packs Per Day: 1 Cigarettes Per Day: 10 Years Smoked: 40 Second Hand Smoke Exposure: Yes Substance Use Type: Heroin Advance Directives: No Advance Directives Information Provided: No service: Yes Current occupational status: unemployed Sexual orientation: Straight/Heterosexual Physical Exam Vital Signs: Vital Signs: Last Vital Signs Temp 98.3 F 06/29/20 14:40 Pulse 92 06/29/20 14:40 Resp 18 06/29/20 14:40 BP 100/47 L 06/29/20 14:40 Pulse Ox 94 06/29/20 14:40 Body Mass Index 65.7 Appearance: Alert. Oriented X3. No acute distress. Eyes: pinpoint pupils ENT: Pharynx normal. Neck: Normal inspection. Neck supple. CVS: Normal heart rate and rhythm. Pulses normal. Respiratory: No respiratory distress. Breath sounds normal. Abdomen: Soft and nontender. Skin: Skin warm and dry. Normal skin color. Normal skin turgor. Extremities: No lower extremity edema. No calf ttp chronic venous stasis changes, dressings changed, chronic ulcers noted, no foul odor, no cellulitis, no abscess Neuro: Oriented X 3. No motor deficit. No sensory deficit. Course Course Course Narrative: slight dehydration noted, IVF ordered elevated WBC count at this time but his wounds do not look infected and he just left [facility] - denies fevers, no abdominal pain, CXR and UA ordered signed out pending workup, plan for rehab if labs stabilize Medical Decision Making [facility] Narrative Medical decision making narrative: 59 yo male just left [facility] out using heroin became intoxicated and wobbly has no complaints, did not need narcan and here requesting his wounds be changed, cleaned in ED, applying his durafiber AG - dispo per results and observation Lab Data Result diagrams: 06/29/20 14:16 06/29/20 14:16 Labs: Lab Results 06/29/20 06/29/20 06/29/20 Range/Units 14:16 14:16 14:16 WBC 19.8 H (4.8-10.8) X10*3/uL RBC 4.56 L D (4.60-5.80) X10*6/uL Hgb 13.5 L D (14.0-18.0) g/dl Hct 41.3 L D (42-52) % MCV 90.6 (80-98) fL MCH 29.6 (27.0-33.0) pg MCHC 32.7 (31.0-36.0) g/dl RDW 18.8 H (11.0-16.0) % Plt Count 283 (160-400) X10*3/uL MPV 10.5 (9.4-12.4) fL Immature Gran % (Auto) 0.8 H (0.0-0.4) % Neut % (Auto) 75.0 H (45-73) % Lymph % (Auto) 12.6 L (20-40) % [place] % (Auto) 11.4 H (2-11) % Eos % (Auto) 0.0 (0-4) % Baso % (Auto) 0.2 (0-2) % Lymph # (Auto) 2.5 (1.2-4.9) X10*3/uL [place] # (Auto) 2.3 H (0.1-1.2) X10*3/uL Eos # (Auto) 0.0 (0.0-0.4) X10*3/uL Baso # (Auto) 0.0 (0.0-0.2) X10*3/uL Abs Immat Gran (auto) 0.16 H (0.00-0.03) X10*3/uL Absolute Neuts (auto) 14.8 H (2.0-8.3) X10*3/uL Absolute Nucleated RBC 0.000 (0.0-0.012) X10*3/uL Nucleated RBC % (auto) 0.0 (0.0-0.2) /100WBC Smear Tech's Comments VERIFIED Sodium 140 (135-145) mmol/L Potassium 5.3 H (3.3-5.1) mmol/L Chloride 105 (96-108) mmol/L Carbon Dioxide 22 (22-29) mmol/L Anion Gap 18 (12-20) BUN 43 H D (9-16) mg/dL Creatinine 1.54 H (0.5-1.4) mg/dL Estim Creat Clear Calc 97.0 Estimated GFR 46 Random Glucose 96 (60-115) mg/dL Calcium 9.8 D (8.4-10.2) mg/dL Ethyl Alcohol < 10 mg/dL COVID-19 (MARISELA) (Negative) COVID-19 Clin Com 06/29/20 Range/Units 15:15 WBC (4.8-10.8) X10*3/uL RBC (4.60-5.80) X10*6/uL Hgb (14.0-18.0) g/dl Hct (42-52) % MCV (80-98) fL MCH (27.0-33.0) pg MCHC (31.0-36.0) g/dl RDW (11.0-16.0) % Plt Count (160-400) X10*3/uL MPV (9.4-12.4) fL Immature Gran % (Auto) (0.0-0.4) % Neut % (Auto) (45-73) % Lymph % (Auto) (20-40) % [place] % (Auto) (2-11) % Eos % (Auto) (0-4) % Baso % (Auto) (0-2) % Lymph # (Auto) (1.2-4.9) X10*3/uL [place] # (Auto) (0.1-1.2) X10*3/uL Eos # (Auto) (0.0-0.4) X10*3/uL Baso # (Auto) (0.0-0.2) X10*3/uL Abs Immat Gran (auto) (0.00-0.03) X10*3/uL Absolute Neuts (auto) (2.0-8.3) X10*3/uL Absolute Nucleated RBC (0.0-0.012) X10*3/uL Nucleated RBC % (auto) (0.0-0.2) /100WBC Smear Tech's Comments Sodium (135-145) mmol/L Potassium (3.3-5.1) mmol/L Chloride (96-108) mmol/L Carbon Dioxide (22-29) mmol/L Anion Gap (12-20) BUN (9-16) mg/dL Creatinine (0.5-1.4) mg/dL Estim Creat Clear Calc Estimated GFR Random Glucose (60-115) mg/dL Calcium (8.4-10.2) mg/dL Ethyl Alcohol mg/dL COVID-19 (MARISELA) Negative (Negative) COVID-19 Clin Com See Note Discharge Plan Discharge Clinical Impression: Acute dehydration, Heroin abuse, Chronic skin ulcer of lower leg Leukocytosis Qualifiers: Leukocytosis type: unspecified Qualified Code(s): D72.829 - Elevated white blood cell count, unspecified Prescriptions: No [facility] hydroxyzine HCl 25 mg Tablet 25 mg PO BEDTIME PRN (Reason: Anxiety) RF: 0 Certavite-Antioxidant 18-400 mg-mcg Tablet 1 tab PO DAILY RF: 0 ferrous sulfate 324 mg (65 mg iron) Tablet,Delayed Release (Dr/Ec) 324 mg PO DAILY Qty: 30 RF: 0 gabapentin 400 mg Capsule 400 mg PO TID Qty: 90 RF: 0 lorazepam 0.5 mg Tablet 0.5 mg PO Q8H PRN (Reason: Anxiety) Qty: 15 RF: 1 mirtazapine 7.5 mg Tablet 7.5 mg PO BEDTIME Qty: 30 RF: 0 tizanidine 4 mg capsule 4 mg PO Q8H PRN (Reason: muscle spasticity) Qty: 30 RF: 0 quetiapine [Seroquel] 50 mg tablet 50 mg PO DAILY PRN (Reason: agitation) Qty: 14 RF: 1 furosemide 40 mg Tablet 40 mg PO DAILY Qty: 30 RF: 0 omeprazole 40 mg Capsule,Delayed Release(Dr/Ec) 40 mg PO DAILY Qty: 30 RF: 0 fluoxetine 20 mg capsule 40 mg PO DAILY Qty: 30 RF: 0 spironolactone 50 mg Tablet 50 mg PO DAILY Qty: 30 RF: 0 Narcan 4 mg/actuation spray,non-aerosol 4 mg intranasal Q2M PRN (Reason: opioid overdose) Qty: 2 RF: 0
[2020-06-29 14:28] LABS: Basophils Percent Auto 0.2 % (0-2); Hematocrit 41.3 % (42-52); Hemoglobin 13.5 g/dl (14.0-18.0); Imm Gran Abs Auto 0.16 X10*3/uL (0.00-0.03); Imm Gran Pct Auto 0.8 % (0.0-0.4); Lymphocytes Absolute Auto 2.5 X10*3/uL (1.2-4.9); Lymphocytes Percent Auto 12.6 % (20-40); MANUAL DIFF FLAG SCAN; Mean Corpuscular HGB Conc 32.7 g/dl (31.0-36.0); Mean Corpuscular Hemoglobin 29.6 pg (27.0-33.0); Mean Corpuscular Volume 90.6 fL (80-98); Mean Platelet Volume 10.5 fL (9.4-12.4); Monocytes Absolute Auto 2.3 X10*3/uL (0.1-1.2); Monocytes Percent Auto 11.4 % (2-11); Neutrophils Absolute Auto 14.8 X10*3/uL (2.0-8.3); Platelet Count 283 X10*3/uL (160-400); Red Blood Count 4.56 X10*6/uL (4.60-5.80); Red Cell Distribution Width 18.8 % (11.0-16.0); SCAN SMEAR FLAG 1; White Blood Count 19.8 X10*3/uL (4.8-10.8)
--- NOTE | 2020-06-29 14:34 | MHC.RECOVSUP ---
Recovery Support note: Patient is a 59 year old Belgian speaking male who presented to [facility] via EMS due to weakness and heroin use. Patient is known to this health underwriter from previous consultations. Patient reports last using heroin this morning. Patient presents as tearful and remorseful, stating that his legs wounds cause a great deal of pain and that he should not have left [facility] when he did. Patient reports that he has no where to go and he is fearful of returning to the streets. Reports his friends are actively using and he will use if he goes to stay with them. Patient is fearful of going to a skilled nursing with his legs in so much pain. Patient reports he would be interested in initiating Suboxone when clinically appropriate. Discussed case with ED CM. Patient would benefit from a group home placement for management of his leg wounds. Discussed this option with patient and he is agreeable, stating he would be willing to go as far as [place] if necessary. Patient reports he would prefer a nursing placement over detox as he is wants his leg wounds cared for. ED provider aware of plan.
--- NOTE | 2020-06-29 14:43 | MHC.CM.ED ---
Received case management consult from Dr Buck. Patient was discharged from on 06/28. Was supposed to go to a friends home with [facility]. Patient returned to the ER today after using Heroin and c/o weakness. Patient anticipated to be started on Suboxone while in ER. Patient is agreeable to referral to a [facility] facility for short term rehab. Anticiapte patient will be difficult to place. [facility]. PASRR screen will be needed. Continue to monitor for d/c needs.
[2020-06-29 14:52] LABS: Anion Gap 18 (12-20); Blood Urea Nitrogen 43 mg/dL (9-16); Calcium 9.8 mg/dL (8.4-10.2); Carbon Dioxide 22 mmol/L (22-29); Chloride 105 mmol/L (96-108); Estimated Glomerular Filt Rate 46; Ethanol < 10 mg/dL; Glucose Random 96 mg/dL (60-115); Potassium 5.3 mmol/L (3.3-5.1); Sodium 140 mmol/L (135-145)
[2020-06-29 15:23] LABS: SLIDE REVIEW VERIFIED
--- NOTE | 2020-06-29 15:28 | XR_ITS ---
EXAMINATION: XR CHEST CLINICAL INFORMATION: Rule out pneumonia COMPARISON: Previous chest x-ray most recent February 2020 TECHNIQUE: Frontal view of the chest was obtained. FINDINGS: The cardiac and mediastinal contours are stable. There is chronic scarring or subsegmental atelectasis at the left lung base similar to previous exam. The lungs are otherwise clear. There is no pleural effusion or pneumothorax. There are degenerative changes of the spine. XR/XR chest 1V IMPRESSION: No evidence for acute disease in the chest.
[2020-06-29 15:40] LABS: COVID-19 Test Negative (Negative); IDNOW Serial# 9DD0AD1C
--- NOTE | 2020-06-29 16:23 | PC.NURSE ---
multiple attempts from several rns to obtain IV access- unable to at this time. third rn at bedside to attempt.
[2020-06-29] MEDS: 0.9 % Sodium Chloride 1,000 ML 999 ML IVCONT (16:49)
[2020-06-29 17:44] LABS: Alanine Aminotransferase 82 U/L (0-40); Albumin Level 3.3 g/dL (3.5-5.0); Alkaline Phosphatase 229 U/L (39-117); Aspartate Amino Transferase 185 U/L (5-37); Bilirubin Direct 0.3 mg/dL (0.0-0.5); Bilirubin Total 0.6 mg/dL (0.0-1.0); Magnesium 2.2 mg/dL (1.6-2.6); Total Protein 8.2 g/dL (6.5-8.0)
[2020-06-29] MEDS: FLUoxetine HCl 20 MG CAPSULE 40 MG PO (18:15)
[2020-06-29] MEDS: Omeprazole 40 MG CAPSULE.DR PO (18:15)
[2020-06-29] MEDS: Ferrous Sulfate 324 MG TABLET.DR PO (18:15)
[2020-06-29] MEDS: Spironolactone 25 MG TABLET 50 MG PO (18:15)
[2020-06-29] MEDS: Furosemide 40 MG TABLET PO (18:18)
[2020-06-29] MEDS: LORazepam 0.5 MG TABLET PO (18:40)
[2020-06-29] MEDS: TiZANidine HCL 4 MG TABLET PO (18:40)
[2020-06-29] MEDS: Mirtazapine 7.5 MG TABLET PO (20:27)
[2020-06-29] MEDS: hydrOXYzine HCL 25 MG TABLET PO (20:27)
[2020-06-29] MEDS: Gabapentin 400 MG CAPSULE PO (20:27)
--- NOTE | 2020-06-29 22:08 | MHC.CM.ED ---
CM met with patient. Pt c/o back pain. Has been in recliner this shift. Spoke with nurse regarding possible bed for pt. Pt moved to bed 17. Pt very grateful. Pt very teary about using heroin again. States he needs to get away from these people . Reminded that CM is looking for a STR for him. Pt agreeable to suboxone. No acceptance from referrals yet. Still awaiting some responses. Pt states he had huge argument with brother. Has no other family. No HCP. States he has no one. CM to monitor for d/c needs.
--- NOTE | 2020-06-29 22:15 | PC.NURSE ---
moved to a bed for the night. will await CM placement. is able to bear weight but is unsteady. dressings remainc CDI. pt insisting that he keep his street clothes on.
[2020-06-29 22:54] LABS: Basophils Percent Auto 0.2 % (0-2); Eosinophils Percent Auto 0.1 % (0-4); Hematocrit 35.3 % (42-52); Hemoglobin 11.5 g/dl (14.0-18.0); Imm Gran Abs Auto 0.14 X10*3/uL (0.00-0.03); Imm Gran Pct Auto 0.7 % (0.0-0.4); Lymphocytes Absolute Auto 3.7 X10*3/uL (1.2-4.9); Lymphocytes Percent Auto 18.8 % (20-40); MANUAL DIFF FLAG SCAN; Mean Corpuscular HGB Conc 32.6 g/dl (31.0-36.0); Mean Corpuscular Hemoglobin 29.4 pg (27.0-33.0); Mean Corpuscular Volume 90.3 fL (80-98); Mean Platelet Volume 10.2 fL (9.4-12.4); Monocytes Absolute Auto 2.6 X10*3/uL (0.1-1.2); Monocytes Percent Auto 13.2 % (2-11); Neutrophils Absolute Auto 13.1 X10*3/uL (2.0-8.3); Platelet Count 229 X10*3/uL (160-400); Red Blood Count 3.91 X10*6/uL (4.60-5.80); Red Cell Distribution Width 18.5 % (11.0-16.0); SCAN SMEAR FLAG 1; White Blood Count 19.5 X10*3/uL (4.8-10.8)
[2020-06-29 23:14] LABS: SLIDE REVIEW VERIFIED
[2020-06-29 23:37] LABS: Anion Gap 13 (12-20); Blood Urea Nitrogen 38 mg/dL (9-16); Calcium 8.7 mg/dL (8.4-10.2); Carbon Dioxide 24 mmol/L (22-29); Chloride 106 mmol/L (96-108); Creatinine Clr Calc Pharmacy 126.7; Estimated Glomerular Filt Rate > 60; Glucose Random 98 mg/dL (60-115); Potassium 5.1 mmol/L (3.3-5.1); Sodium 138 mmol/L (135-145)
[2020-06-30] VITALS (10 sets, daily range): BP systolic 98–128; BP diastolic 50–77; PULSE 51–78; RESP 16–18; TEMP 36.6–36.9; O2SAT 95–99
--- NOTE | 2020-06-30 01:28 | PC.NURSE ---
PT SITTING UP IN BED, REQUESTING FOOD. PO FLUIDS, SANDWICH, AND CRACKERS GIVEN. USING URINAL WITHOUT DIFFICULTY IN ROOM. REPORTING THROBBING LEGS- NOT DUE FOR PRN MEDS FOR 2 MORE HOURS, PT AWARE. OFFERS NO OTHER COMPLAINTS AT THIS TIME. CM BEDSEARCH CONTINUES.
[2020-06-30 01:54] LABS: Appearance Urine CLEAR; Color Urine DARK YELLOW; Glucose Urine UA NEG (NEG); Leukocyte Esterase Urine NEG (NEG); Nitrite Urine NEG (NEG); UACC Culture Trigger NO; Urine Blood NEG (NEG); Urine Ketones NEG (NEG); Urine Protein NEG (NEG-TRACE)
[2020-06-30 02:11] LABS: Amphetamine Screen Urine Not Detected (Not Detect); Barbiturates, Urine Not Detected (Not Detect); Benzodiazepines Screen Urine Not Detected (Not Detect); Cannabinoid Screen Urine Not Detected (Not Detect); Cocaine Screen Urine Not Detected (Not Detect); Opiate Screen Urine POSITIVE (Not Detect); Phencyclidine Screen Urine Not Detected (Not Detect)
[2020-06-30] MEDS: TiZANidine HCL 4 MG TABLET PO ×3 (04:26→20:59)
[2020-06-30] MEDS: LORazepam 0.5 MG TABLET PO ×3 (04:26→21:00)
--- NOTE | 2020-06-30 08:48 | MHC.CM.ED ---
Patient remains in ER. 29 referrals were broadcasted in [employer] for facilities that can administer Suboxone. No bed offer yet. Continue to monitor for d/c needs.
[2020-06-30] MEDS: FLUoxetine HCl 20 MG CAPSULE 40 MG PO (09:05)
[2020-06-30] MEDS: Omeprazole 40 MG CAPSULE.DR PO (09:05)
[2020-06-30] MEDS: Furosemide 40 MG TABLET PO (09:06)
[2020-06-30] MEDS: Ferrous Sulfate 324 MG TABLET.DR PO (09:06)
[2020-06-30] MEDS: Gabapentin 400 MG CAPSULE PO ×3 (09:06→21:00)
[2020-06-30] MEDS: Spironolactone 25 MG TABLET 50 MG PO (09:06)
--- NOTE | 2020-06-30 15:21 | PC.NURSE ---
pt sleeping but arousable to verbal stimuli. pt contracts for safety. vitals wnl. pt speaking in clear and full sentences. nuero intact. pt did not recieve lunch, called cafe to supply but given crackers at this time for time being. pending bed assignment and placement
[2020-06-30] MEDS: QUEtiapine Fumarate 50 MG TABLET PO ×2 (16:11→20:59)
[2020-06-30] MEDS: Buprenorphine/Naloxone 4/1 mg FILM 1 FILM SUBLINGUAL (16:11)
--- NOTE | 2020-06-30 18:19 | PC.NURSE ---
pt ate 100% of dinner.
[2020-06-30] MEDS: Mirtazapine 7.5 MG TABLET PO (20:59)
[2020-06-30] MEDS: hydrOXYzine HCL 25 MG TABLET PO (21:00)
[2020-07-01 02:00] VITALS: BP 99/48; PULSE 61; RESP 16; TEMP 36.9; O2SAT 95
[2020-07-01 04:00] VITALS: BP 124/64; PULSE 64; RESP 16; TEMP 36.6; O2SAT 96
[2020-07-01 06:00] VITALS: BP 96/54; PULSE 72; RESP 16; TEMP 37; O2SAT 99
--- NOTE | 2020-07-01 09:14 | MHC.CM.ED ---
Patient remains in ER. Clinical updates sent to [facility]. Spoke with marcela Hirsch via telephone. She will review info. Continue to monitor for d/c needs.
[2020-07-01 09:55] VITALS: BP 140/70; PULSE 66; RESP 18; O2SAT 98
[2020-07-01] MEDS: Furosemide 40 MG TABLET PO (09:55)
[2020-07-01] MEDS: Gabapentin 400 MG CAPSULE PO ×2 (09:55→15:34)
[2020-07-01] MEDS: Ferrous Sulfate 324 MG TABLET.DR PO (09:55)
--- NOTE | 2020-07-01 09:56 | PC.NURSE ---
pt resting in the stretcher, respirations even and unlabored. pt reports that he can't walk to the bathroom that he is too unsteady with ambulation and that he will fall on his face. bilateral lower extremities unwrapped per DANILO PHOENIX REQUEST, WOUNDS APPEARS LIKE THEY ARE HEALING WELL AT THIS TIME, NO FOUL ORDER OR EXCESSIVE DRAINING VISIBLE. PT CONTINUOS ON AWAITING FOR SNIFF PLACMENT.
[2020-07-01] MEDS: Buprenorphine/Naloxone 8/2 mg FILM 1 FILM SUBLINGUAL (09:59)
[2020-07-01] MEDS: Omeprazole 40 MG CAPSULE.DR PO (09:59)
[2020-07-01] MEDS: TiZANidine HCL 4 MG TABLET PO (10:04)
[2020-07-01] MEDS: LORazepam 0.5 MG TABLET PO (10:04)
--- NOTE | 2020-07-01 10:44 | PC.NURSE ---
SPIRINOLACTONE GIVEN 10A
--- NOTE | 2020-07-01 10:49 | MHC.RECOVSUP ---
Recovery Support note: This creative services writer checked in with patient to discuss Suboxone and his plan moving forward. Patient reports he is comfortable and doing well with the Suboxone as it has been given. Explained to patient that they will continue to provide it for patient while he is in treatment. Educated patient regarding the [facility] and provided patient with information to get established as a patient there if he decides to continue with Suboxone after he is discharged from treatment. Patient reports no questions at this time. Patient reports leg pain but that he is doing OK overall.
--- NOTE | 2020-07-01 13:00 | MHC.CM.ED ---
[facility] does not have a bed available today. But their sister facility, [facility] does. Patient can leave here at 4pm. [facility] booked. Med nec with chart. Patient, Kateryna ARCE and Yazmin PHOENIX aware. MDS completed and faxed to [facility]. PASRR letter obtained. Continue to monitor for d/c needs.
--- NOTE | 2020-07-01 13:05 | PC.NURSE ---
pt eating lunch, in no apparent distress at this time
--- NOTE | 2020-07-01 14:34 | P.EN_ITS ---
Event Note Date of Service: 07/01/20 Event Note: Addiction consult: Patient with history of OUD, depression and frontal lobe defecit currently in ED awaiting placement at SNF Known to [facility] through previous admissions. Started on suboxone yesterday to treat OUD and withdrawal. Patient seen this morning, reporting 4mg dose helped, but still experiencing mild withdrawal sx. Plan: -Increase dose to 8mg QD -Pt to discharge to SNF. 30 day rx provided as requested by facility -LFTs elevated, request for follow up labs within 4 weeks.
--- NOTE | 2020-07-01 15:07 | PC.NURSE ---
report given to libia [facility] at [facility]
[2020-07-01 15:36] VITALS: BP 101/58; PULSE 60; RESP 18; O2SAT 60
== END 2020-07-01 16:12 | disposition skilled nursing facility (03) ==
PROVIDERS: Emergency Medicine; Emergency Provider Emergency Medicine
DX: E86.0 Dehydration (principal); F11.10 Opioid abuse, uncomplicated; L97.909 Non-pressure chronic ulcer of unspecified part of unspecified lower leg with unspecified severity; Z20.822 Contact with and (suspected) exposure to COVID-19; E11.9 Type 2 diabetes mellitus without complications; I10 Essential (primary) hypertension; F32.9 Major depressive disorder, single episode, unspecified; F17.210 Nicotine dependence, cigarettes, uncomplicated; Z79.899 Other long term (current) drug therapy
CPT/HCPCS: 36415; 71045; 80048; 80076; 80307; 80320; 81003; 83605; 83735; 85025; 87040; 87635; 97162; 99285; J0573; J0574

== ENCOUNTER 2020-08-14 23:51 | Emergency (ER) | payer MEDICAID, SELFPAY ==
--- NOTE | ~2020-08-14 | CT_ITS ---
EXAMINATION: CT ABDOMEN AND PELVIS WITH CONTRAST CLINICAL INFORMATION: bilateral lower quadrant pain, hx splenectomy COMPARISON: 02/07/2020 TECHNIQUE: Multidetector volumetric images were obtained from the superior aspect of the liver through the pubic symphysis following administration 85 mL of Omnipaque 350 intravenous contrast. Sagittal and coronal reformatted images were obtained on the technologist's workstation. Oral contrast: No This CT examination was performed using dose optimization techniques as appropriate, variously including the following: *Automated exposure control *Adjustment of mA and/or kV according to patient size (this includes techniques or standardized protocols for targeted exams where dose is matched to indication/reason for exam; i.e. extremities or head) *Use of iterative reconstruction technique DLP: 696 mGy-cm FINDINGS: LUNG BASES: A few patchy reticular opacities are present in the midlungs, partially included on this study. No focal airspace consolidation or pulmonary nodules. LIVER, GALLBLADDER, AND BILIARY TREE: The liver is small with a nodular contour, consistent with cirrhosis. Status post cholecystectomy. Common bile duct measures up to 1 cm in diameter, within normal limits in the setting of prior cholecystectomy. Minimal intrahepatic biliary duct dilatation. No focal lesions are identified on these images. A few dystrophic calcifications are present along the posterior capsular margin of the right hepatic lobe. PANCREAS: A punctate calcification is present in the pancreatic head. Pancreas is otherwise normal in appearance. SPLEEN: Status post splenectomy. ADRENAL GLANDS: Unremarkable. KIDNEYS AND URETERS: Multiple small right-sided renal calculi are noted, measuring up to 3 mm in diameter, situated 8 cm deep to the skin surface at the right posterior mid axillary line. No obstructing calculi are identified. No left-sided renal calculi. Kidneys are normal in size and contour with symmetric enhancement. A small subcentimeter cyst in the anterior cortex of the right kidney is too small to characterize. Ureters are normal in course and caliber. No ureterolithiasis. BLADDER: Unremarkable. GASTROINTESTINAL TRACT: Stomach, small bowel, and colon are normal in caliber. No bowel wall thickening or surrounding inflammatory changes. Appendix is normal. No intraperitoneal free fluid or free air. ABDOMINAL WALL: No significant hernia is appreciated. LYMPH NODES: Multiple prominent retroperitoneal lymph nodes are present in the portal region, measuring up to 1.2 cm in diameter, unchanged from prior. VASCULAR: Again seen are ascending paraesophageal varices as well as a large splenorenal shunt. Small short gastric varices are also suspected. The main portal vein is normal in caliber. Abdominal aorta is normal in caliber. No aneurysmal dilatation. PELVIC VISCERA: The prostate and seminal vesicles are unremarkable. OSSEOUS STRUCTURES: Compression fractures are again seen at multiple levels, most notably at L2, unchanged from prior. There is cortical buckling at the posterior cortex of L2 with slight narrowing of the central canal, unchanged from prior. There is mild to moderate multilevel degenerative spondylosis. No acute fractures are identified. CT/CT abdomen pelvis w con IMPRESSION: 1. No acute intra-abdominal or intrapelvic abnormalities are identified. 2. 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 3. Multiple nonobstructing right renal calculi 4. Status post splenectomy and cholecystectomy. 5. Multiple compression fractures in the lower thoracic and lumbar spine, unchanged from prior. No new compression fractures are identified.
[2020-08-14 23:57] VITALS: BP 120/85; PULSE 103; RESP 16; TEMP 36.8; O2SAT 97; BMI 30.3
[2020-08-15] VITALS: BP 120/85; PULSE 82; RESP 16; O2SAT 96
--- NOTE | 2020-08-15 00:04 | ECG_ITS ---
Test Reason : ABD PAIN Blood Pressure : / mmHG Vent. Rate : 077 BPM Atrial Rate : 077 BPM P-R Int : 160 ms QRS Dur : 082 ms QT Int : 446 ms P-R-T Axes : 056 020 064 degrees QTc Int : 504 ms Normal sinus rhythm Nonspecific ST and T wave abnormality Abnormal ECG When compared with ECG of 15-JUN-2020 17:22, ST now depressed in Anterior leads Nonspecific T wave abnormality now evident in Anterolateral leads Referred By: Marleny Horton Electronically Signed By:MACI EDGAR MD
[2020-08-15 00:22] LABS: MANUAL DIFF FLAG NO
--- NOTE | 2020-08-15 00:22 | ED.ABDPAIN ---
HPI - Abdominal Pain General Chief Complaint: Abdominal Pain Stated Complaint: abd pain Time Seen by Provider: 08/15/20 00:02 Source: patient and EMS Mode of arrival: EMS Limitations: no limitations History of Present Illness HPI narrative: Patient comes emergency room complaining of bilateral abdominal pain. Patient states it started 2 months ago. Patient states it has been hurting the same for about 2 months. Patient denies vomiting, no diarrhea, no dysuria or hematuria, no fever chills. Patient denies vomiting blood or having any rectal bleeding or black stool MD elicited complaint: abdominal pain Related Data Home Medications Medication Instructions Recorded Confirmed hydroxyzine HCl 25 mg PO BEDTIME PRN 06/29/20 06/29/20 [id number]-[id number] acid 1 tab PO DAILY 06/29/20 06/29/20 [Certavite-Antioxidant] Previous Rx's Medication Instructions Recorded ferrous sulfate 324 mg PO DAILY #30 tab 06/28/20 fluoxetine 40 mg PO DAILY #30 cap 06/28/20 furosemide 40 mg PO DAILY #30 tab 06/28/20 gabapentin 400 mg PO TID #90 cap 06/28/20 lorazepam 0.5 mg PO Q8H PRN #15 tab 06/28/20 mirtazapine 7.5 mg PO BEDTIME #30 tab 06/28/20 omeprazole 40 mg PO DAILY #30 cap 06/28/20 quetiapine [Seroquel] 50 mg PO DAILY PRN #14 tab 06/28/20 spironolactone 50 mg PO DAILY #30 tab 06/28/20 tizanidine 4 mg PO Q8H PRN #30 cap 06/28/20 naloxone [Narcan] 4 mg INTRANASAL Q2M PRN #2 ea 06/29/20 buprenorphine-naloxone [Suboxone] 1 film SUBLINGUAL DAILY #30 ea 07/01/20 Allergies Allergy/AdvReac Type Severity Reaction Status Date / Time acetaminophen [From TYLENOL] Allergy Unknown UNK Verified 08/14/20 23:59 codeine [CODEINE] Allergy Unknown RASH Verified 08/14/20 23:59 pneumococcal vaccine Allergy Unknown PARALYSIS Verified 08/14/20 23:59 [PNEUMOCOCCAL VACCINE] tuberculin, purified protein Allergy Unknown RASH Verified 08/14/20 23:59 deriva [TUBERCULIN, PURIFIED PROTEIN DERIVA] venlafaxine [From EFFEXOR] AdvReac Unknown UNKNOWN Verified 08/14/20 23:59 Review of Systems Review of Systems Constitutional : No Weight loss, No Fever, No Chills, No Night Sweats, No Fatigue, No Malaise ENT/Mouth : No Hearing loss, No Ear Pain, No Nasal Congestion, No Sinus Pain, No Hoarseness, No sore throat, No Rhinorrhea, No Swallowing Difficulty Eyes: No Eye Pain, No Swelling, No Redness, No Foreign Body, No Discharge, No Vision Changes Cardiovascular : No Chest Pain, No SOB, No Dyspnea on Exertion, No Orthopnea, No Edema, No Palpitations Respiratory : No Cough, No Sputum, No Wheezing, No Smoke Exposure, No Dyspnea Gastrointestinal : No Nausea, No Vomiting, No Diarrhea, No Constipation, complaining of bilateral lower quadrant pain, No Hematochezia, No Melena Genitourinary : no irregular bleeding, No Dysuria, No Urinary Frequency, No Hematuria, No Urinary Incontinence, No Urgency, No Flank Pain, No Urinary Flow Changes, No Hesitancy Musculoskeletal : No joint pain, No Myalgias, No Joint Swelling Skin : No Skin Lesions, No rash Neuro : No Weakness, No Numbness, No Paresthesias, No Loss of Consciousness, No Dizziness, No Headache Psych : No Anxiety/Panic, No Depression, No SI/HI/AH/VH, No Social Issues, Heme/Lymph: No Bruising, No Bleeding,No Lymphadenopathy Endocrine : No Polyuria, No Polydipsia, No Temperature Intolerance Physical Exam Vital Signs: Vital Signs: Last Vital Signs Temp 98.3 F 08/14/20 23:57 Pulse 81 08/15/20 03:28 Resp 16 08/15/20 03:28 BP 150/97 H 08/15/20 03:28 Pulse Ox 97 08/15/20 03:28 Body Mass Index 30.3 Appearance: Alert. Oriented X3. No acute distress. Eyes: Pupils equal, round and reactive to light. ENT: Pharynx normal. Neck: Normal inspection. Neck supple. No lymph nodes noted. No crepitus CVS: Normal heart rate and rhythm. Pulses normal. Normal S1 and S2 Respiratory: No respiratory distress. Breath sounds normal. No Wheezing. No rales Abdomen: Soft, moderate pain to palpation in bilateral lower quadrants, No rigidity. No distention. good BS x4 Skin: Skin warm and dry. Normal skin color. Normal skin turgor. Extremities: No lower extremity edema. No lower extremity edema. No Lacerations. No Rash Neuro: Oriented X 3. No motor deficit. No sensory deficit. Moving all extermities. No slurred speech. Course Course Course Narrative: Labs and imaging pending. Patient states that he would like to talk to [facility], states that he would like to have information to restart Suboxone. Patient states he quit cold turkey approximately 2 weeks ago. Patient was evaluated by the care team, he was given all the information to contact the outpatient [facility]one Clinic I discussed the CT scan with the patient, no acute findings. Patient's potassium was orally repleted Patient is eating drinking, states he feels well now. MDM - Abdominal Pain Lab Data Result diagrams: 08/15/20 00:19 08/15/20 00:51 Labs: Lab Results 08/15/20 08/15/20 08/15/20 Range/Units 00:19 00:51 00:51 WBC 7.3 (4.8-10.8) X10*3/uL RBC 5.21 D (4.60-5.80) X10*6/uL Hgb 16.0 D (14.0-18.0) g/dl Hct 45.9 D (42-52) % MCV 88.1 (80-98) fL MCH 30.7 (27.0-33.0) pg MCHC 34.9 (31.0-36.0) g/dl RDW 17.3 H (11.0-16.0) % Plt Count 256 (160-400) X10*3/uL MPV 10.4 (9.4-12.4) fL Immature Gran % (Auto) 0.3 (0.0-0.4) % Neut % (Auto) 47.2 (45-73) % Lymph % (Auto) 36.7 (20-40) % [place] % (Auto) 14.8 H (2-11) % Eos % (Auto) 0.3 (0-4) % Baso % (Auto) 0.7 (0-2) % Lymph # (Auto) 2.7 (1.2-4.9) X10*3/uL [place] # (Auto) 1.1 (0.1-1.2) X10*3/uL Eos # (Auto) 0.0 (0.0-0.4) X10*3/uL Baso # (Auto) 0.1 (0.0-0.2) X10*3/uL Abs Immat Gran (auto) 0.02 (0.00-0.03) X10*3/uL Absolute Neuts (auto) 3.5 (2.0-8.3) X10*3/uL Absolute Nucleated RBC 0.000 (0.0-0.012) X10*3/uL Nucleated RBC % (auto) 0.0 (0.0-0.2) /100WBC Sodium 137 (135-145) mmol/L Potassium 3.0 L D (3.3-5.1) mmol/L Chloride 92 L (96-108) mmol/L Carbon Dioxide 32 H (22-29) mmol/L Anion Gap 16 (12-20) BUN 17 H D (9-16) mg/dL Creatinine 1.32 (0.5-1.4) mg/dL Estim Creat Clear Calc 75.4 Estimated GFR 55 Random Glucose 103 (60-115) mg/dL Calcium 9.4 D (8.4-10.2) mg/dL Magnesium (1.6-2.6) mg/dL Total Bilirubin 1.4 H (0.0-1.0) mg/dL Direct Bilirubin 0.9 H (0.0-0.5) mg/dL AST 99 H (5-37) U/L ALT 51 H (0-40) U/L Alkaline Phosphatase 245 H (39-117) U/L Total Protein 8.2 H (6.5-8.0) g/dL Albumin 3.2 L (3.5-5.0) g/dL Lipase 47 (8-78) U/L Urine Color Urine Appearance Urine pH (5.0-8.0) Ur Specific [place] (1.005-1.025) Urine Protein (NEG-TRACE) MG/DL Urine Glucose (UA) (NEG) MG/DL Urine Ketones (NEG) MG/DL Urine Blood (NEG) Urine Nitrite (NEG) Ur Leukocyte Esterase (NEG) Urine RBC (0) /HPF Urine WBC (0-4) /HPF Ur Squamous Epith Cells /LPF Urine Bacteria /LPF Hyaline Casts /LPF Urine Mucus /LPF Urine Opiates Screen (Not Detect) Ur Barbiturates Screen (Not Detect) Ur Phencyclidine Scrn (Not Detect) Ur Amphetamines Screen (Not Detect) U Benzodiazepines Scrn (Not Detect) Urine Cocaine Screen (Not Detect) U Marijuana (THC) Screen (Not Detect) Ethyl Alcohol < 10 mg/dL 08/15/20 08/15/20 08/15/20 Range/Units 00:51 02:50 02:50 WBC (4.8-10.8) X10*3/uL RBC (4.60-5.80) X10*6/uL Hgb (14.0-18.0) g/dl Hct (42-52) % MCV (80-98) fL MCH (27.0-33.0) pg MCHC (31.0-36.0) g/dl RDW (11.0-16.0) % Plt Count (160-400) X10*3/uL MPV (9.4-12.4) fL Immature Gran % (Auto) (0.0-0.4) % Neut % (Auto) (45-73) % Lymph % (Auto) (20-40) % [place] % (Auto) (2-11) % Eos % (Auto) (0-4) % Baso % (Auto) (0-2) % Lymph # (Auto) (1.2-4.9) X10*3/uL [place] # (Auto) (0.1-1.2) X10*3/uL Eos # (Auto) (0.0-0.4) X10*3/uL Baso # (Auto) (0.0-0.2) X10*3/uL Abs Immat Gran (auto) (0.00-0.03) X10*3/uL Absolute Neuts (auto) (2.0-8.3) X10*3/uL Absolute Nucleated RBC (0.0-0.012) X10*3/uL Nucleated RBC % (auto) (0.0-0.2) /100WBC Sodium (135-145) mmol/L Potassium (3.3-5.1) mmol/L Chloride (96-108) mmol/L Carbon Dioxide (22-29) mmol/L Anion Gap (12-20) BUN (9-16) mg/dL Creatinine (0.5-1.4) mg/dL Estim Creat Clear Calc Estimated GFR Random Glucose (60-115) mg/dL Calcium (8.4-10.2) mg/dL Magnesium 1.7 (1.6-2.6) mg/dL Total Bilirubin (0.0-1.0) mg/dL Direct Bilirubin (0.0-0.5) mg/dL AST (5-37) U/L ALT (0-40) U/L Alkaline Phosphatase (39-117) U/L Total Protein (6.5-8.0) g/dL Albumin (3.5-5.0) g/dL Lipase (8-78) U/L Urine Color YELLOW Urine Appearance CLEAR Urine pH 6.5 (5.0-8.0) Ur Specific [place] 1.010 (1.005-1.025) Urine Protein TRACE (NEG-TRACE) MG/DL Urine Glucose (UA) NEG (NEG) MG/DL Urine Ketones NEG (NEG) MG/DL Urine Blood 1+ H (NEG) Urine Nitrite NEG (NEG) Ur Leukocyte Esterase NEG (NEG) Urine RBC 1-4 (0) /HPF Urine WBC 1-4 (0-4) /HPF Ur Squamous Epith Cells 1+ /LPF Urine Bacteria 1+ /LPF Hyaline Casts 5-9 /LPF Urine Mucus 1+ /LPF Urine Opiates Screen Not Detected (Not Detect) Ur Barbiturates Screen Not Detected (Not Detect) Ur Phencyclidine Scrn Not Detected (Not Detect) Ur Amphetamines Screen Not Detected (Not Detect) U Benzodiazepines Scrn Not Detected (Not Detect) Urine Cocaine Screen Not Detected (Not Detect) U Marijuana (THC) Screen Not Detected (Not Detect) Ethyl Alcohol mg/dL ECG Data Attestation: I personally reviewed and interpreted this ECG as follows: (Sinus rhythm, heart rate 77, new T-wave inversions, no ST segment depressions, QTC 504) Discharge Plan Discharge Clinical Impression: Abdominal pain Qualifiers: Abdominal location: unspecified location Qualified Code(s): R10.9 - Unspecified abdominal pain Patient Disposition: Home, Self-Care Instructions: Abdominal Pain (ED) Additional Instructions: Please follow-up with the Suboxone clinic. Please follow-up with your primary care physician tomorrow. If you have any worsening or new symptoms, please return to the emergency room or call 911 Prescriptions: No Action hydroxyzine HCl 25 mg Tablet 25 mg PO BEDTIME PRN (Reason: Anxiety) RF: 0 Certavite-Antioxidant 18-400 mg-mcg Tablet 1 tab PO DAILY RF: 0 buprenorphine-naloxone [Suboxone] 8-2 mg film 1 film sublingual DAILY Qty: 30 RF: 0 ferrous sulfate 324 mg (65 mg iron) Tablet,Delayed Release (Dr/Ec) 324 mg PO DAILY Qty: 30 RF: 0 gabapentin 400 mg Capsule 400 mg PO TID Qty: 90 RF: 0 lorazepam 0.5 mg Tablet 0.5 mg PO Q8H PRN (Reason: Anxiety) Qty: 15 RF: 1 mirtazapine 7.5 mg Tablet 7.5 mg PO BEDTIME Qty: 30 RF: 0 tizanidine 4 mg capsule 4 mg PO Q8H PRN (Reason: muscle spasticity) Qty: 30 RF: 0 quetiapine [Seroquel] 50 mg tablet 50 mg PO DAILY PRN (Reason: agitation) Qty: 14 RF: 1 furosemide 40 mg Tablet 40 mg PO DAILY Qty: 30 RF: 0 omeprazole 40 mg Capsule,Delayed Release(Dr/Ec) 40 mg PO DAILY Qty: 30 RF: 0 fluoxetine 20 mg capsule 40 mg PO DAILY Qty: 30 RF: 0 spironolactone 50 mg Tablet 50 mg PO DAILY Qty: 30 RF: 0 Narcan 4 mg/actuation spray,non-aerosol 4 mg intranasal Q2M PRN (Reason: opioid overdose) Qty: 2 RF: 0 PMFSH Past Medical History Medical History Anxiety Cerebral microvascular disease Depression Diet-controlled diabetes mellitus 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 Hepatitis C virus HTN (hypertension) Liver cirrhosis Major depress dis, severe Major depression in partial remission Neuropathy Opioid use disorder, moderate, in controlled environment Physical deconditioning PTSD (post-traumatic stress disorder) Suicidal ideations Venous stasis dermatitis Surgical History H/O splenectomy Hx of cholecystectomy S/P correction of deviated nasal septum Family History Family History Father Diabetes Social History Social History Household Members: None Housing: Homeless Alcohol intake: former Smoking Status: Current some day smoker Tobacco Type: Cigarette Packs Per Day: 1 Cigarettes Per Day: 10 Years Smoked: 40 Second Hand Smoke Exposure: Yes Substance Use Type: Opiates Advance Directives: No Advance Directives Information Provided: No service: Yes Current occupational status: unemployed Sexual orientation: Straight/Heterosexual
[2020-08-15 00:23] LABS: Basophils Absolute Auto 0.1 X10*3/uL (0.0-0.2); Basophils Percent Auto 0.7 % (0-2); Eosinophils Percent Auto 0.3 % (0-4); Hematocrit 45.9 % (42-52); Imm Gran Abs Auto 0.02 X10*3/uL (0.00-0.03); Imm Gran Pct Auto 0.3 % (0.0-0.4); Lymphocytes Absolute Auto 2.7 X10*3/uL (1.2-4.9); Lymphocytes Percent Auto 36.7 % (20-40); Mean Corpuscular HGB Conc 34.9 g/dl (31.0-36.0); Mean Corpuscular Hemoglobin 30.7 pg (27.0-33.0); Mean Corpuscular Volume 88.1 fL (80-98); Mean Platelet Volume 10.4 fL (9.4-12.4); Monocytes Absolute Auto 1.1 X10*3/uL (0.1-1.2); Monocytes Percent Auto 14.8 % (2-11); Neutrophils Absolute Auto 3.5 X10*3/uL (2.0-8.3); Neutrophils Percent Auto 47.2 % (45-73); Platelet Count 256 X10*3/uL (160-400); Red Blood Count 5.21 X10*6/uL (4.60-5.80); Red Cell Distribution Width 17.3 % (11.0-16.0); White Blood Count 7.3 X10*3/uL (4.8-10.8)
[2020-08-15 01:20] LABS: Ethanol < 10 mg/dL
[2020-08-15 01:22] LABS: Magnesium 1.7 mg/dL (1.6-2.6)
[2020-08-15 01:24] LABS: Alanine Aminotransferase 51 U/L (0-40); Albumin Level 3.2 g/dL (3.5-5.0); Alkaline Phosphatase 245 U/L (39-117); Anion Gap 16 (12-20); Aspartate Amino Transferase 99 U/L (5-37); Bilirubin Direct 0.9 mg/dL (0.0-0.5); Bilirubin Total 1.4 mg/dL (0.0-1.0); Blood Urea Nitrogen 17 mg/dL (9-16); Calcium 9.4 mg/dL (8.4-10.2); Carbon Dioxide 32 mmol/L (22-29); Chloride 92 mmol/L (96-108); Creatinine Clr Calc Pharmacy 75.4; Estimated Glomerular Filt Rate 55; Glucose Random 103 mg/dL (60-115); Lipase 47 U/L (8-78); Sodium 137 mmol/L (135-145); Total Protein 8.2 g/dL (6.5-8.0)
--- NOTE | 2020-08-15 01:57 | MHC.CARE ---
CARE team support requested by ED charge nurse and physician to meet with pt who was asking to speak with someone about his mental health and having stopped taking suboxone approx 10 days ago. Pt came to ED by ambulance for abdominal pain. Pt endorsed experiencing SI, which pt stated he's been having for years and denied having any recent attempts to planning. Pt reported that his main concern is getting back on suboxone. Pt denied any recent opiate use, though doesn't feel that he can sustain recovery and that he has continued to feel poorly since he's been off the suboxone. Pt is interested in re-connecting with the [facility], and was given information for calling directly or doing walk-in hours. This television writer sent an email to Vaughn [facility] and [facility] re: pt's ED visit and recommendation to present to clinic on his own. ED physician and nursing updated re: plan of care.
[2020-08-15 02:00] VITALS: BP 140/77; PULSE 84; RESP 16; O2SAT 95
[2020-08-15 02:58] LABS: Glucose Urine UA NEG (NEG); Leukocyte Esterase Urine NEG (NEG); Nitrite Urine NEG (NEG); PH 6.5 (5.0-8.0); Urine Blood 1+ (NEG); Urine Ketones NEG (NEG); Urine Protein TRACE MG/DL (NEG-TRACE)
[2020-08-15 03:01] LABS: Appearance Urine CLEAR; Color Urine YELLOW
[2020-08-15 03:05] LABS: Bacteria Urine 1+ /LPF; Mucus Urine 1+ /LPF; Squamous Epithelial Cell Urine 1+ /LPF
[2020-08-15 03:18] LABS: Amphetamine Screen Urine Not Detected (Not Detect); Barbiturates, Urine Not Detected (Not Detect); Benzodiazepines Screen Urine Not Detected (Not Detect); Cannabinoid Screen Urine Not Detected (Not Detect); Cocaine Screen Urine Not Detected (Not Detect); Opiate Screen Urine Not Detected (Not Detect); Phencyclidine Screen Urine Not Detected (Not Detect)
[2020-08-15 03:28] VITALS: BP 150/97; PULSE 81; RESP 16; O2SAT 97
--- NOTE | 2020-08-15 03:39 | PC.NURSE ---
pt given 2 soda's and ice water. pt offered crackers and a sandwich. osiris from the care team spoke with patient, gave him contact information for suboxone. pt asking for his evening medications, ptran out of a few of his prescripations. pt discharged, plan is to let pt sleep until the morning and feed him before leaving.
[2020-08-15] MEDS: Potassium Chloride Packet 20 MEQ PACKET 40 MEQ PO (06:32)
--- NOTE | 2020-08-15 06:46 | PC.NURSE ---
pt awake and alert, given 3 containers of juice.
--- NOTE | 2020-08-15 07:58 | PC.NURSE ---
pt discharged. discloses suicidal ideation with both access to lethal means and intent. Placed in hospital gown, moved to observation area (hallway 22). Charge nurse aware will order [facility] consult. Pt belongings stored in pod.
--- NOTE | 2020-08-15 08:26 | PC.NURSE ---
FAXED AND CALLED N FOR CONSULT
--- NOTE | 2020-08-15 10:23 | PC.NURSE ---
[facility] HERE TO ASSESS PT.
--- NOTE | 2020-08-15 12:20 | PC.NURSE ---
Fe STATES PT WILL BE ABLE TO GO TO [facility] IN THE AM. Fe SPOKE WITH PROVIDER WHO AGREES WITH MAINTAINING PT IN THE ED UNTIL THE AM
--- NOTE | 2020-08-15 13:58 | PC.NURSE ---
PT ATE LUNCH, NAPPING AND APPROPRIATE WITH STAFF
[2020-08-15 14:05] VITALS: BP 127/70; PULSE 74; RESP 18; TEMP 36.8; O2SAT 100
--- NOTE | 2020-08-15 14:22 | PC.NURSE ---
PT HAS DECIDED TO STAY WITH BROTHER AND GO TO [facility] IN THE AM, HE DENIES SI AT THIS TIME AND UNDERSTANDS [facility] RECOMMENDATIONS
== END 2020-08-15 14:38 | disposition home or self-care (01) ==
PROVIDERS: Emergency Provider Emergency Medicine
DX: R10.30 Lower abdominal pain, unspecified (principal); R45.851 Suicidal ideations; I10 Essential (primary) hypertension; Z86.19 Personal history of other infectious and parasitic diseases; K74.60 Unspecified cirrhosis of liver; F43.10 Post-traumatic stress disorder, unspecified; F17.210 Nicotine dependence, cigarettes, uncomplicated
CPT/HCPCS: 36415; 74177; 80048; 80076; 80307; 80320; 81001; 83690; 83735; 85025; 93005; 99284; Q9967

== ENCOUNTER 2020-08-22 01:03 | Emergency (ER) | payer MEDICAID, SELFPAY ==
[2020-08-22 01:08] VITALS: BP 148/88; PULSE 82; O2SAT 96
[2020-08-22 01:10] VITALS: BP 124/79; PULSE 84; RESP 18; TEMP 36.5; O2SAT 96; BMI 29.7
--- NOTE | 2020-08-22 04:17 | PC.NURSE ---
Labs obtained and sent. Pt reports some relief of leg pain, states that he took some Gabapentin that he had on him. Awaiting lab results at this time.
[2020-08-22 04:19] LABS: Basophils Absolute Auto 0.1 X10*3/uL (0.0-0.2); Basophils Percent Auto 0.5 % (0-2); Eosinophils Absolute Auto 0.3 X10*3/uL (0.0-0.4); Eosinophils Percent Auto 2.9 % (0-4); Hematocrit 36.8 % (42-52); Hemoglobin 12.2 g/dl (14.0-18.0); Imm Gran Abs Auto 0.02 X10*3/uL (0.00-0.03); Imm Gran Pct Auto 0.2 % (0.0-0.4); Lymphocytes Absolute Auto 3.6 X10*3/uL (1.2-4.9); Lymphocytes Percent Auto 34.4 % (20-40); MANUAL DIFF FLAG SCAN; Mean Corpuscular HGB Conc 33.2 g/dl (31.0-36.0); Mean Corpuscular Volume 90.6 fL (80-98); Monocytes Absolute Auto 1.8 X10*3/uL (0.1-1.2); Monocytes Percent Auto 17.5 % (2-11); Neutrophils Absolute Auto 4.7 X10*3/uL (2.0-8.3); Neutrophils Percent Auto 44.5 % (45-73); Platelet Count 184 X10*3/uL (160-400); Red Blood Count 4.06 X10*6/uL (4.60-5.80); Red Cell Distribution Width 17.5 % (11.0-16.0); SCAN SMEAR FLAG 1; White Blood Count 10.5 X10*3/uL (4.8-10.8)
[2020-08-22 04:39] LABS: SLIDE REVIEW VERIFIED
[2020-08-22 04:42] LABS: Alanine Aminotransferase 34 U/L (0-40); Albumin Level 2.7 g/dL (3.5-5.0); Alkaline Phosphatase 163 U/L (39-117); Anion Gap 14 (12-20); Aspartate Amino Transferase 62 U/L (5-37); Blood Urea Nitrogen 15 mg/dL (9-16); Calcium 8.4 mg/dL (8.4-10.2); Carbon Dioxide 30 mmol/L (22-29); Chloride 99 mmol/L (96-108); Creatinine Clr Calc Pharmacy 124.8; Estimated Glomerular Filt Rate > 60; Glucose Random 91 mg/dL (60-115); Potassium 3.6 mmol/L (3.3-5.1); Sodium 139 mmol/L (135-145); Total Protein 6.3 g/dL (6.5-8.0)
--- NOTE | 2020-08-22 04:51 | ED.EXTPRO ---
HPI - Extremity Problem General Chief complaint: Extremity Problem Stated complaint: Diff Ambulating Time Seen by Provider: 08/22/20 03:34 Source: patient Mode of arrival: ambulatory History of Present Illness HPI Narrative: This is a 60-year-old male who presents with complaints of bilateral lower extremity pain on ambulation. Patient states that he has chronic venous stasis and that due to walking around a lot his legs become sore. He denies any associated fevers, chills, abdominal pain, or urinary symptoms. Related Data Home Medications Medication Instructions Recorded Confirmed hydroxyzine HCl 25 mg PO BEDTIME PRN 06/29/20 06/29/20 fmcosrfjrwqg-hhvg-wxprc acid 1 tab PO DAILY 06/29/20 06/29/20 [Certavite-Antioxidant] Previous Rx's Medication Instructions Recorded ferrous sulfate 324 mg PO DAILY #30 tab 06/28/20 fluoxetine 40 mg PO DAILY #30 cap 06/28/20 furosemide 40 mg PO DAILY #30 tab 06/28/20 gabapentin 400 mg PO TID #90 cap 06/28/20 lorazepam 0.5 mg PO Q8H PRN #15 tab 06/28/20 mirtazapine 7.5 mg PO BEDTIME #30 tab 06/28/20 omeprazole 40 mg PO DAILY #30 cap 06/28/20 quetiapine [Seroquel] 50 mg PO DAILY PRN #14 tab 06/28/20 spironolactone 50 mg PO DAILY #30 tab 06/28/20 tizanidine 4 mg PO Q8H PRN #30 cap 06/28/20 naloxone [Narcan] 4 mg INTRANASAL Q2M PRN #2 ea 06/29/20 buprenorphine-naloxone [Suboxone] 1 film SUBLINGUAL DAILY #30 ea 07/01/20 Allergies Allergy/AdvReac Type Severity Reaction Status Date / Time acetaminophen [From TYLENOL] Allergy Unknown UNK Verified 08/14/20 23:59 codeine [CODEINE] Allergy Unknown RASH Verified 08/14/20 23:59 pneumococcal vaccine Allergy Unknown PARALYSIS Verified 08/14/20 23:59 [PNEUMOCOCCAL VACCINE] tuberculin, purified protein Allergy Unknown RASH Verified 08/14/20 23:59 deriva [TUBERCULIN, PURIFIED PROTEIN DERIVA] venlafaxine [From EFFEXOR] AdvReac Unknown UNKNOWN Verified 08/14/20 23:59 Review of Systems Review of Systems: Pertinent positives and negatives as stated in HPI 10 point review of systems is otherwise negative. 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 Hepatitis C virus HTN (hypertension) Liver cirrhosis Major depress dis, severe Major depression in partial remission Neuropathy Opioid use disorder, moderate, in controlled environment Physical deconditioning PTSD (post-traumatic stress disorder) Suicidal ideations Venous stasis dermatitis Surgical History H/O splenectomy Hx of cholecystectomy S/P correction of deviated nasal septum Family History Family History Father Diabetes Social History Social History Household Members: None Housing: Homeless Alcohol intake: former Smoking Status: Current some day smoker Tobacco Type: Cigarette Packs Per Day: 1 Cigarettes Per Day: 10 Years Smoked: 40 Second Hand Smoke Exposure: Yes Substance Use Type: Opiates Advance Directives: No service: Yes Current occupational status: unemployed Sexual orientation: Straight/Heterosexual Physical Exam Vital Signs: Vital Signs: Last Vital Signs Temp 97.7 F 08/22/20 01:10 Pulse 84 08/22/20 01:10 Resp 18 08/22/20 01:10 BP 124/79 08/22/20 01:10 Pulse Ox 96 08/22/20 01:10 Body Mass Index 29.7 VITAL SIGNS: Reviewed. GENERAL: Well developed, well nourished, in no acute distress. HEAD: Normocephalic/atraumatic OROPHARYNX: no oral lesions noted, posterior pharynx clear NECK: Supple, no adenopathy LUNGS: Normal breath sounds. No adventitious sounds or accessory muscle use. SpO2<96> CARDIOVASCULAR: Regular rate and rhythm without noted murmurs ABDOMEN: Soft, non-tender, non-distended with bowel sounds. EXTREMITIES: No cyanosis, clubbing or edema, stigmata chronic venous stasis and although warmth is noted to the lower legs there is no pitting edema, nor is there erythema. SKIN: Inspection of the skin reveals no rashes NEUROLOGIC: Alert and oriented x 4.. Course Course Course Narrative: This is a 60-year-old male with history and clinical presentation of chronic venous stasis with associated pain on ambulation. Low clinical suspicion for DVT or cellulitis. Will obtain basic labs and re-evaluate. On review of lab work there are no acute findings from chronic baseline. Nursing staff informed me that patient has eloped. MDM - Extremity (Nontraumatic) Lab Data Result diagrams: 08/22/20 04:14 08/22/20 04:14 Labs: Lab Results 08/22/20 08/22/20 Range/Units 04:14 04:14 WBC 10.5 (4.8-10.8) X10*3/uL RBC 4.06 L D (4.60-5.80) X10*6/uL Hgb 12.2 L D (14.0-18.0) g/dl Hct 36.8 L (42-52) % MCV 90.6 (80-98) fL MCH 30.0 (27.0-33.0) pg MCHC 33.2 (31.0-36.0) g/dl RDW 17.5 H (11.0-16.0) % Plt Count 184 D (160-400) X10*3/uL MPV 10.0 (9.4-12.4) fL Immature Gran % (Auto) 0.2 (0.0-0.4) % Neut % (Auto) 44.5 L (45-73) % Lymph % (Auto) 34.4 (20-40) % [place] % (Auto) 17.5 H (2-11) % Eos % (Auto) 2.9 (0-4) % Baso % (Auto) 0.5 (0-2) % Lymph # (Auto) 3.6 (1.2-4.9) X10*3/uL [place] # (Auto) 1.8 H (0.1-1.2) X10*3/uL Eos # (Auto) 0.3 (0.0-0.4) X10*3/uL Baso # (Auto) 0.1 (0.0-0.2) X10*3/uL Abs Immat Gran (auto) 0.02 (0.00-0.03) X10*3/uL Absolute Neuts (auto) 4.7 (2.0-8.3) X10*3/uL Absolute Nucleated RBC 0.000 (0.0-0.012) X10*3/uL Nucleated RBC % (auto) 0.0 (0.0-0.2) /100WBC Smear Tech's Comments VERIFIED Sodium 139 (135-145) mmol/L Potassium 3.6 (3.3-5.1) mmol/L Chloride 99 (96-108) mmol/L Carbon Dioxide 30 H (22-29) mmol/L Anion Gap 14 (12-20) BUN 15 (9-16) mg/dL Creatinine 0.78 (0.5-1.4) mg/dL Estim Creat Clear Calc 124.8 Estimated GFR > 60 Random Glucose 91 (60-115) mg/dL Calcium 8.4 D (8.4-10.2) mg/dL Total Bilirubin 1.0 (0.0-1.0) mg/dL AST 62 H (5-37) U/L ALT 34 (0-40) U/L Alkaline Phosphatase 163 H D (39-117) U/L Total Protein 6.3 L D (6.5-8.0) g/dL Albumin 2.7 L (3.5-5.0) g/dL Discharge Plan Discharge Clinical Impression: Chronic venous stasis Patient Disposition: Elopement Prescriptions: No Action hydroxyzine HCl 25 mg Tablet 25 mg PO BEDTIME PRN (Reason: Anxiety) RF: 0 Certavite-Antioxidant 18-400 mg-mcg Tablet 1 tab PO DAILY RF: 0 buprenorphine-naloxone [Suboxone] 8-2 mg film 1 film sublingual DAILY Qty: 30 RF: 0 ferrous sulfate 324 mg (65 mg iron) Tablet,Delayed Release (Dr/Ec) 324 mg PO DAILY Qty: 30 RF: 0 gabapentin 400 mg Capsule 400 mg PO TID Qty: 90 RF: 0 lorazepam 0.5 mg Tablet 0.5 mg PO Q8H PRN (Reason: Anxiety) Qty: 15 RF: 1 mirtazapine 7.5 mg Tablet 7.5 mg PO BEDTIME Qty: 30 RF: 0 tizanidine 4 mg capsule 4 mg PO Q8H PRN (Reason: muscle spasticity) Qty: 30 RF: 0 quetiapine [Seroquel] 50 mg tablet 50 mg PO DAILY PRN (Reason: agitation) Qty: 14 RF: 1 furosemide 40 mg Tablet 40 mg PO DAILY Qty: 30 RF: 0 omeprazole 40 mg Capsule,Delayed Release(Dr/Ec) 40 mg PO DAILY Qty: 30 RF: 0 fluoxetine 20 mg capsule 40 mg PO DAILY Qty: 30 RF: 0 spironolactone 50 mg Tablet 50 mg PO DAILY Qty: 30 RF: 0 Narcan 4 mg/actuation spray,non-aerosol 4 mg intranasal Q2M PRN (Reason: opioid overdose) Qty: 2 RF: 0 Interventions: ED Discharge Assessment Last Done: 08/22/20 05:10 Discharge Date/Time: 08/22/20 05:11
--- NOTE | 2020-08-22 04:53 | PC.NURSE ---
Pt no longer in bed, found to have eloped from the ER. and shirt trimmer aware.
== END 2020-08-22 05:11 | disposition left against medical advice (07) ==
PROVIDERS: Emergency Provider Student in an Organized Health Care Education/Training Program
DX: M79.604 Pain in right leg (principal); M79.605 Pain in left leg; R26.2 Difficulty in walking, not elsewhere classified
CPT/HCPCS: 36415; 80053; 85025; 99283

== ENCOUNTER 2020-09-02 11:15 | Inpatient (IN) | payer MEDICAID, SELFPAY ==
[2020-09-02] VITALS (10 sets, daily range): BP systolic 109–132; BP diastolic 71–82; PULSE 79–110; RESP 14–20; TEMP 36.1–36.8; O2SAT 56–97; BMI 29.8
--- NOTE | 2020-09-02 | ECG_ITS ---
Test Reason : DIFF BREATHING Blood Pressure : / mmHG Vent. Rate : 090 BPM Atrial Rate : 090 BPM P-R Int : 132 ms QRS Dur : 080 ms QT Int : 392 ms P-R-T Axes : 059 041 -22 degrees QTc Int : 479 ms Normal sinus rhythm T wave abnormality, consider inferior ischemia Nonspecific ST and T wave abnormality anterior leads Prolonged QT Abnormal ECG When compared with ECG of 02-SEP-2020 14:43, No significant change was found Referred By: Nataly Buck Electronically Signed By:MUKESH HUGHES
--- NOTE | ~2020-09-02 | CT_ITS ---
EXAMINATION: EXAMINATION: CT ANGIOGRAM OF THE CHEST WITH AND WITHOUT CONTRAST (CT PULMONARY ANGIOGRAM FOR PE) CLINICAL INFORMATION: Reason for Exam dyspnea COMPARISON: Chest x-ray of same day and CT angiogram of the chest of March 02, 2020 TECHNIQUE: Prior to contrast administration, noncontrast localization images were obtained. Subsequently, multidetector volumetric imaging was performed from the thoracic inlet to below the diaphragms following the administration of 65 mL Omnipaque 350 intravenous contrast. No contrast reaction reported Sagittal, coronal, and MIP oblique sagittal reformatted images were obtained on the CT workstation, uploaded to PACS, and reviewed. This CT examination was performed using dose optimization techniques as appropriate, variously including the following: *Automated exposure control *Adjustment of mA and/or kV according to patient size (this includes techniques or standardized protocols for targeted exams where dose is matched to indication/reason for exam; i.e. extremities or head) *Use of iterative reconstruction technique Total exam dose-length product 459 mGy-cm FINDINGS: QUALITY OF STUDY/CONTRAST BOLUS: Satisfactory. PULMONARY ARTERIES: No central or segmental pulmonary emboli. THORACIC AORTA: No aneurysm or dissection. LUNG: The central airways are patent. There is diffuse bilateral groundglass opacification consistent with interstitial disease. This may be infectious or inflammatory or related to pulmonary edema of cardiogenic or noncardiogenic etiology. I do not see significant bronchial wall thickening present so pulmonary edema would seem less likely. There is some mild cylindrical bronchiectasis seen most prominent at the lung bases No suspicious lung mass is appreciated. PLEURA: No pleural effusion or pneumothorax. MEDIASTINUM: The heart is enlarged. No pericardial effusion identified. Pulmonary arteries are prominent. There appears to be some bowing of the posterior interventricular septum but without definite straightening of the more anterior portion and without bowing in this location. No reflux of contrast into the hepatic veins is evident. Visualized portions of the thyroid gland appear unremarkable. There is a 1.1 cm short axis aortopulmonic window lymph node. There is a 1.4 cm short axis subcarinal lymph node. There is a 1.3 cm short axis diameter right paratracheal lymph node. There is interstitial prominence in both central hilar regions but without lymphadenopathy by size. No pericardial effusion. CHEST WALL/AXILLA: No axillary or internal mammary lymphadenopathy. OSSEOUS STRUCTURES: No suspicious destructive bony lesions identified. Multilevel degenerative disc disease is seen within the thoracic spine. Multiple compression fractures of thoracic and lumbar vertebra Old healed right rib fractures evident. UPPER ABDOMEN: There is right nephrolithiasis. No hydronephrosis. Right renal cysts. The inferior vena cava is prominent there is a spontaneous left splenorenal shunt with some ascending varices which I cannot follow up superiorly without the vein being opacified. No reflux of contrast into the hepatic veins to suggest elevated right heart pressures. CT/CT angio chest PE protocol IMPRESSION: No evidence of acute pulmonary artery embolus. No evidence of thoracic aortic aneurysm or dissection. Diffuse ground glass opacity bilaterally which may be related to infectious or inflammatory process as described above. Pulmonary edema of cardiogenic or noncardiogenic etiology would also be within the differential diagnosis but without significant peribronchial wall thickening present this would seem less likely. Cardiomegaly. Portal hypertension with varices. Right nephrolithiasis. Mild mediastinal lymphadenopathy. VTE: negative CLINICAL INFORMATION: Dyspnea COMPARISON: June 29, 2020 TECHNIQUE: AP portable chest FINDINGS: Patient has developed bilateral regions of interstitial and airspace disease since previous study. No pneumothorax or pleural effusion. Heart upper limits of normal in size. IMPRESSION: Bilateral interstitial and airspace disease. This may be on an infectious or inflammatory in nature such as Covid 19 or atypical or viral pneumonia. Pulmonary edema of cardiogenic or noncardiogenic etiology can also have this appearance.
--- NOTE | ~2020-09-02 | US_ITS ---
EXAMINATION: US VENOUS ULTRASOUND WITH DOPPLER LOWER EXTREMITY, BILATERAL CLINICAL INFORMATION: Bilateral lower extremity pain COMPARISON: None TECHNIQUE: Ultrasound of the deep veins is performed from the hip to the calf with compression sonography and color and pulse Doppler assessment. Spectral analysis with color-flow imaging is performed. FINDINGS: RIGHT: There is normal venous compression and respiratory variation and augmented flow. The visualized common femoral vein, superficial femoral vein, profunda femoral vein, popliteal vein, and the trifurcation region shows no evidence of deep venous thrombosis. There is no significant popliteal fossa cyst. LEFT: There is normal venous compression and respiratory variation and augmented flow. The visualized common femoral vein, superficial femoral vein, profunda femoral vein, popliteal vein, and the trifurcation region shows no evidence of deep venous thrombosis. There is no significant popliteal fossa cyst. If the patient's symptoms persist, followup ultrasound in 5 days 7 days might be of value to exclude proximal propagation from a non-visualized calf vein. US/US venous duplex LE BI IMPRESSION: No DVT demonstrated in the bilateral lower extremity.
--- NOTE | ~2020-09-02 | XR_ITS ---
EXAMINATION: XR CHEST CLINICAL INFORMATION: Hypoxia COMPARISON: Portable chest 09/06/2020, 09/22/2020, CT had noncontrast 09/04/2020. TECHNIQUE: Portable upright AP view of the chest was obtained. FINDINGS: There are diffuse bilateral airspace opacities, slightly coarser/increased from prior exam 09/06/2020. There is no effusion. No pneumothorax or pneumomediastinum. The cardiac and hilar and mediastinal contours and bony structures are stable. XR/XR chest 1V IMPRESSION: Diffuse pulmonary opacities slightly increased from prior exam 09/06/2020.
--- NOTE | ~2020-09-02 | CT_ITS ---
EXAMINATION: CT CHEST WITHOUT CONTRAST CLINICAL INFORMATION: Hypoxia. Pulmonary infiltrates. COMPARISON: September 04, 2020 TECHNIQUE: Multidetector volumetric CT imaging of the chest was done. Axial MIP volume rendering provided. Sagittal and coronal reformatted images were obtained. This CT examination was performed using dose optimization techniques as appropriate, variously including the following: *Automated exposure control *Adjustment of mA and/or kV according to patient size (this includes techniques or standardized protocols for targeted exams where dose is matched to indication/reason for exam; i.e. extremities or head) *Use of iterative reconstruction technique DLP: 671 mGy-cm FINDINGS: There is a large amount of breathing motion artifact. LUNGS: There is symmetric diffuse interstitial and airspace disease similar within the upper and midlung zones but with increase in consolidation within the lower lobes. Endotracheal tube is seen in place with tip approximately 2 cm above the brant. Central bronchi are patent. MEDIASTINUM: The heart is enlarged. No pericardial effusion. No coronary artery calcification is appreciated. There is a right internal jugular central venous catheter seen in place with tip within the proximal right atrium. An enteric tube is seen traversing to the stomach. Prominent mediastinal lymph nodes are again noted some of which are pathologically enlarged. The lymphadenopathy seen in the aortopulmonic window, precarinal region, right paratracheal region, and subcarinal region. PLEURA: Patient has developed small bilateral pleural effusions. No pleural mass appreciated. AXILLA: No lymphadenopathy. 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 Patient status post cholecystectomy. There are a few nonobstructing right renal upper pole calculi. There is a left renal vein branch extending to the gastroesophageal junction region. This may be related to portal hypertension with portal varices and spontaneous shunt to the left renal vein. OSSEOUS STRUCTURES: No suspicious destructive bony lesions identified. There are some healed bilateral rib fractures seen. There are numerous endplate compression fractures present. There is an approximately 50% wedge compression fracture of the T8 vertebral body. There is fracture of the L2 vertebral body. CT/CT chest wo con IMPRESSION: Progression with increase of interstitial and airspace disease within the lower lobes bilaterally. Diffuse symmetric interstitial and airspace disease. Development of small bilateral pleural effusions. Cardiomegaly. Above findings can be related to pulmonary edema of cardiogenic or noncardiogenic etiology. Diffuse infectious process could also give this appearance. 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 Nonobstructing right renal calculi.
--- NOTE | ~2020-09-02 | CT_ITS ---
EXAMINATION: CT CHEST WITHOUT CONTRAST CLINICAL INFORMATION: Hypoxia COMPARISON: Portions of a study 09/02/20 Marked interval worsening aeration when comparing chest x-ray 09/02/20 2 2020 TECHNIQUE: Multidetector volumetric CT imaging of the chest was done. Axial MIP volume rendering provided. Sagittal and coronal reformatted images were obtained. This CT examination was performed using dose optimization techniques as appropriate, variously including the following: *Automated exposure control *Adjustment of mA and/or kV according to patient size (this includes techniques or standardized protocols for targeted exams where dose is matched to indication/reason for exam; i.e. 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 Diffuse scattered reticular opacities and some airspace disease. The cardiac silhouette is prominent. Surgical clips right upper quadrant LUNGS: There is no abnormality of the trachea or mainstem bronchi. The lungs are diffusely abnormal. There are extensive areas of airspace disease with some thickening of the underlying interlobular septa and some interspersed areas of relative sparing. The opacities diffusely involve the central two thirds of each lung with relative sparing of the juxtapleural and lung base regions. The pattern is fairly symmetric. No large dense areas of consolidation. In the uninvolved areas the underlying parenchyma appears within normal limits. MEDIASTINUM: There are some nonspecific prominent mediastinal lymph nodes including retrocaval pretracheal and left periaortic regions. No suspicious abnormality the esophagus. No pericardial fluid. PLEURA: There is no pleural fluid or pneumothorax AXILLA: No lymphadenopathy. UPPER ABDOMEN: Surgical clips in the expected region of the gallbladder. Punctate right renal calculi without evidence of obstruction demonstrated. The common duct appears mildly prominent perhaps related to previous cholecystectomy. The liver contour may be slightly irregular. The spleen is not demonstrated and may be surgically absent. There is apparent venous collateral extending from the left renal vein into the paraesophageal region. The expected region of the portal vein is relatively small. Evidence of previous midline surgery. Edema in the flanks. OSSEOUS STRUCTURES: There is mild to moderate volume loss in the lower thoracic spine. There are numerous endplate concavities. On the lowest images available there is an abnormality in the superior endplate of one of the lumbar vertebrae. CT/CT chest wo con IMPRESSION: Severe pulmonary opacities mostly airspace disease. Pattern could reflect pulmonary edema. The lack of juxtapleural involvement or pleural fluid suggests noncardiogenic pulmonary edema should be considered. Infection is not excluded. Numerous spinal abnormalities including volume loss and endplate deformities Suspect chronic liver disease
--- NOTE | ~2020-09-02 | XR_ITS ---
EXAMINATION: XR CHEST CLINICAL INFORMATION: Follow-up airspace opacities. COMPARISON: Multiple priors, most recent CT chest dated 01/04/2021. TECHNIQUE: Frontal view of the chest was obtained. FINDINGS: Diffuse bilateral airspace opacities, similar when compared to the recent CT. No pleural effusion or pneumothorax. Stable cardiomediastinal silhouette. XR/XR chest 1V IMPRESSION: Diffuse bilateral airspace opacities, similar when compared to prior examinations. Findings can be seen in the setting of an infectious or inflammatory process, including viral pneumonia.
--- NOTE | ~2020-09-02 | XR_ITS ---
EXAMINATION: XR CHEST CLINICAL INFORMATION: Endotracheal tube, OG tube, triple-lumen catheter placement verification. COMPARISON: 09/15/2020 TECHNIQUE: Frontal view of the chest was obtained. FINDINGS: The endotracheal tube terminates 3 cm above the brant. Enteric tube extends into the stomach. Right internal jugular central venous catheter terminates near the cavoatrial junction. Cardiac leads overlie the chest. The lungs are well expanded. Diffuse bilateral airspace opacities are again noted, similar in appearance to the prior study. No pneumothorax. No pleural effusion. The cardiomediastinal silhouette is unchanged. XR/XR chest 1V IMPRESSION: Endotracheal tube terminates 3 cm above the brant. . Right internal jugular central venous catheter terminates near the cavoatrial junction. No pneumothorax. Enteric tube extends into the stomach. Similar appearance of diffuse bilateral airspace opacities.
--- NOTE | ~2020-09-02 | XR_ITS ---
EXAMINATION: XR CHEST CLINICAL INFORMATION: Follow-up distress COMPARISON: Chest CT September 19, 2020 and chest x-ray September 18, 2020 TECHNIQUE: Frontal view of the chest was obtained. FINDINGS: Stable cardiac silhouette. Endotracheal tube terminates approximately 2.2 cm above the level of the brant. Enteric tube terminates below the level of the diaphragm. Right-sided jugular catheter is stable in position. Patchy bilateral airspace disease is relatively similar in prominence. No gross pleural effusion noted on today's frontal view. No pneumothorax. XR/XR chest 1V IMPRESSION: -Support apparatus in expected position. -Stable patchy bilateral airspace disease.
--- NOTE | ~2020-09-02 | XR_ITS ---
EXAMINATION: XR CHEST CLINICAL INFORMATION: Shortness of breath COMPARISON: 09/13/2020 TECHNIQUE: Frontal view of the chest was obtained. FINDINGS: The lungs are well expanded. Diffuse bilateral airspace opacities are seen, mildly increased in density from prior. No pneumothorax. Small pleural effusions. The cardiomediastinal silhouette is unchanged. XR/XR chest 1V IMPRESSION: Diffuse bilateral airspace opacities are increased in density from prior. Small pleural effusions.
--- NOTE | ~2020-09-02 | XR_ITS ---
EXAMINATION: XR CHEST CLINICAL INFORMATION: Evaluate endotracheal tube position. COMPARISON: 09/16/2020 and 09/15/2020 chest radiographs. TECHNIQUE: Frontal view of the chest was obtained. FINDINGS: Support devices: Endotracheal tube tip is positioned approximately 1.5 cm proximal to brant. Nasogastric tube tip is not included on the study but is seen below the left hemidiaphragm. Right internal jugular catheter with tip at the atriocaval junction. Diffuse bilateral airspace opacities are again seen without significant change. The heart and mediastinal structures are unremarkable. XR/XR chest 1V IMPRESSION: 1. Endotracheal tube position approximately 1.5 cm proximal to the brant. 2. Persistent diffuse bilateral airspace opacities without significant change.
--- NOTE | 2020-09-02 11:31 | PC.NURSE ---
PTS RESP EFFORT NONLABOURED UPON ARRIVAL. SPO2 >95% ON NONREBREATHER
--- NOTE | 2020-09-02 11:40 | ECG_ITS ---
Test Reason : DIFF BREATHING Blood Pressure : / mmHG Vent. Rate : 104 BPM Atrial Rate : 104 BPM P-R Int : 122 ms QRS Dur : 074 ms QT Int : 352 ms P-R-T Axes : 026 045 -26 degrees QTc Int : 462 ms Artifact in tracing Sinus tachycardia ST & T wave abnormality, consider inferior ischemia Abnormal ECG When compared with ECG of 15-AUG-2020 00:27, T wave inversion now evident in Inferior leads Referred By: Nataly Buck Electronically Signed By:MUKESH HUGHES
[2020-09-02] MEDS: Albuterol Sulfate (0.083%) 2.5 MG/3 ML VIAL.NEB 10 MG INHALE (11:50)
--- NOTE | 2020-09-02 11:54 | ED_ITS ---
HPI - SOB/Dyspnea General Chief Complaint: Abdominal Pain Stated Complaint: crisis Time Seen by Provider: 09/02/20 11:40 Source: patient Mode of arrival: ambulatory Limitations: no limitations History of Present Illness HPI Narrative: 60 yo male c/o cough, fatigue, fevers, shortness of breath for 5 days also noted increase in LE edema, found to be hypoxic on arrival to the ED MD elicited complaint: shortness of breath and cough Pertinent past history: COPD Onset (ago): day(s) (5) Context: recent illness and other (used heroin 2 days ago) Timing: constant and progressively worsening Severity: severe Exacerbating factors: exertion, movement and coughing Relieving factors: oxygen and rest Known history of: COPD Associated symptoms: fever, cough and wheezing Treatment prior to arrival: none Related Data Home Medications Medication Instructions Recorded Confirmed hydroxyzine HCl 25 mg PO BEDTIME PRN 06/29/20 06/29/20 vrafcxbyxajt-dorp-gybyu acid 1 tab PO DAILY 06/29/20 06/29/20 [Certavite-Antioxidant] Previous Rx's Medication Instructions Recorded ferrous sulfate 324 mg PO DAILY #30 tab 06/28/20 fluoxetine 40 mg PO DAILY #30 cap 06/28/20 furosemide 40 mg PO DAILY #30 tab 06/28/20 gabapentin 400 mg PO TID #90 cap 06/28/20 lorazepam 0.5 mg PO Q8H PRN #15 tab 06/28/20 mirtazapine 7.5 mg PO BEDTIME #30 tab 06/28/20 omeprazole 40 mg PO DAILY #30 cap 06/28/20 quetiapine [Seroquel] 50 mg PO DAILY PRN #14 tab 06/28/20 spironolactone 50 mg PO DAILY #30 tab 06/28/20 tizanidine 4 mg PO Q8H PRN #30 cap 06/28/20 naloxone [Narcan] 4 mg INTRANASAL Q2M PRN #2 ea 06/29/20 buprenorphine-naloxone [Suboxone] 1 film SUBLINGUAL DAILY #30 ea 07/01/20 Allergies Allergy/AdvReac Type Severity Reaction Status Date / Time acetaminophen [From TYLENOL] Allergy Unknown UNK Verified 08/14/20 23:59 codeine [CODEINE] Allergy Unknown RASH Verified 08/14/20 23:59 pneumococcal vaccine Allergy Unknown PARALYSIS Verified 08/14/20 23:59 [PNEUMOCOCCAL VACCINE] tuberculin, purified protein Allergy Unknown RASH Verified 08/14/20 23:59 deriva [TUBERCULIN, PURIFIED PROTEIN DERIVA] venlafaxine [From EFFEXOR] AdvReac Unknown UNKNOWN Verified 08/14/20 23:59 Review of Systems Review of Systems: Constitutional : pos Fever, pos Chills ENT/Mouth : No sore throat, No Rhinorrhea, No Swallowing Difficulty Eyes: No Eye Pain, No Swelling, No Redness Cardiovascular : No Chest Pain, positive SOB, No Orthopnea, positive Edema Respiratory :pos Cough, No Sputum, posWheezing, positive dyspnea Gastrointestinal : No Nausea, No Vomiting, No Diarrhea, No abdominal Pain, No Hematochezia, No Melena Genitourinary : No Dysuria, No Urinary Frequency, No Hematuria Musculoskeletal : No joint pain, No Myalgias Skin : No Skin Lesions, No rash Neuro : No Weakness, No Numbness, No Dizziness, No Headache Psych : No Anxiety/Panic, No Depression Heme/Lymph: No Bruising, No Lymphadenopathy Endocrine : No Polyuria, No Polydipsia All other systems reviewed and are negative [facility] Past Medical History Medical History Anxiety Cerebral microvascular disease Depression Diet-controlled diabetes mellitus 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 Hepatitis C virus HTN (hypertension) Liver cirrhosis Major depress dis, severe Major depression in partial remission Neuropathy Opioid use disorder, moderate, in controlled environment Physical deconditioning PTSD (post-traumatic stress disorder) Suicidal ideations Venous stasis dermatitis Surgical History H/O splenectomy Hx of cholecystectomy S/P correction of deviated nasal septum Family History Family History Father Diabetes Social History Social History Household Members: None Housing: Homeless Alcohol intake: former Smoking Status: Current some day smoker Tobacco Type: Cigarette Packs Per Day: 1 Cigarettes Per Day: 10 Years Smoked: 40 Second Hand Smoke Exposure: Yes Substance Use Type: Opiates Advance Directives: No Advance Directives Information Provided: No service: Yes Current occupational status: unemployed Sexual orientation: Straight/Heterosexual Physical Exam Vital Signs: Vital Signs: Last Vital Signs Temp 97.9 F 09/02/20 11:21 Pulse 90 09/02/20 14:09 Resp 18 09/02/20 11:21 BP 132/71 09/02/20 11:21 Pulse Ox 71 L 09/02/20 11:41 Body Mass Index 29.8 Appearance: Alert. Oriented X3. Moderate acute distress. Eyes: Pupils equal, round and reactive to light. ENT: Pharynx normal. Neck: Normal inspection. Neck supple. CVS: tachycardic heart rate and rhythm. Pulses normal. Respiratory: moderate respiratory distress. Breath sounds decreased throughout, wheezing noted Abdomen: Soft and nontender. Skin: Skin warm and dry. Normal skin color. Normal skin turgor. Extremities: pos 2 to 3+ pitting bilateral lower extremity edema. No calf ttp Neuro: Oriented X 3. No motor deficit. No sensory deficit. Course Course Course Narrative: lactic acidosis and elevated WBC due to hypoxia and albuterol not infection or severe sepsis at this time IV lasix ordered, markedly high BNP with LE edema unintentionally taken off O2 found again to be 55% on RA, ABG ordered, patient placed on NRB for initial O2 then will switch back to venti repeat neb ordered, back up to 97% will switch back to venti 97% on 50% venti, will order PO aspirin, already ordered IV lasix, repeat EKG still with T wave inversions, ECHO 2018 normal EF patient now notes that he has not taken his lasix or spironolactone in 7 to 10 days MDM - SOB/Dyspnea MDM Narrative Medical decision making narrative: 60 yo male with substance abuse, COPD, HTN, chronic LE edema with wounds, depression PTSD comes in with 5 days of CALHOU[place], LE edema, fatigue - at this time on arrival 56% on RA, saturating in 90s on 50% venti, given 5mg neb, IV steroids, labs, CXR, CTA for PE study, anticipate admission at this time Lab Data Result diagrams: 09/02/20 12:10 09/02/20 12:10 Labs: Lab Results 09/02/20 09/02/20 09/02/20 Range/Units 12:10 12:10 12:10 WBC 13.1 H (4.8-10.8) X10*3/uL RBC 3.41 L (4.60-5.80) X10*6/uL Hgb 10.5 L (14.0-18.0) g/dl Hct 32.0 L (42-52) % MCV 93.8 (80-98) fL MCH 30.8 (27.0-33.0) pg MCHC 32.8 (31.0-36.0) g/dl RDW 21.0 H (11.0-16.0) % Plt Count 145 L (160-400) X10*3/uL MPV 10.9 (9.4-12.4) fL Immature Gran % (Auto) 0.7 H (0.0-0.4) % Neut % (Auto) 79.5 H (45-73) % Lymph % (Auto) 10.9 L (20-40) % [place] % (Auto) 8.6 (2-11) % Eos % (Auto) 0.1 (0-4) % Baso % (Auto) 0.2 (0-2) % Lymph # (Auto) 1.4 (1.2-4.9) X10*3/uL [place] # (Auto) 1.1 (0.1-1.2) X10*3/uL Eos # (Auto) 0.0 (0.0-0.4) X10*3/uL Baso # (Auto) 0.0 (0.0-0.2) X10*3/uL Abs Immat Gran (auto) 0.09 H (0.00-0.03) X10*3/uL Absolute Neuts (auto) 10.5 H (2.0-8.3) X10*3/uL Absolute Nucleated RBC 0.290 H (0.0-0.012) X10*3/uL Nucleated RBC % (auto) 2.2 H (0.0-0.2) /100WBC PT (10.8-13.0) SEC INR (0.9-1.1) APTT (24.1-38.0) SEC Sodium 140 (135-145) mmol/L Potassium 4.5 D (3.3-5.1) mmol/L Chloride 103 (96-108) mmol/L Carbon Dioxide 29 (22-29) mmol/L Anion Gap 13 (12-20) BUN 35 H D (9-16) mg/dL Creatinine 0.97 (0.5-1.4) mg/dL Estim Creat Clear Calc 97.8 Estimated GFR > 60 Random Glucose 100 (60-115) mg/dL Lactic Acid 2.5 H* (0.5-2.0) mmol/L Calcium 8.3 L (8.4-10.2) mg/dL Magnesium 2.2 (1.6-2.6) mg/dL Total Bilirubin 4.8 H (0.0-1.0) mg/dL Direct Bilirubin 3.3 H (0.0-0.5) mg/dL AST 54 H (5-37) U/L ALT 24 (0-40) U/L Alkaline Phosphatase 117 D (39-117) U/L Troponin I High Sens (<3.5-35.0) ng/L B-Natriuretic Peptide (<100) pg/mL Total Protein 6.4 L (6.5-8.0) g/dL Albumin 2.7 L (3.5-5.0) g/dL Ethyl Alcohol mg/dL COVID-19 (MARISELA) (Negative) COVID-19 Clin Com 09/02/20 09/02/20 09/02/20 Range/Units 12:10 12:10 12:10 WBC (4.8-10.8) X10*3/uL RBC (4.60-5.80) X10*6/uL Hgb (14.0-18.0) g/dl Hct (42-52) % MCV (80-98) fL MCH (27.0-33.0) pg MCHC (31.0-36.0) g/dl RDW (11.0-16.0) % Plt Count (160-400) X10*3/uL MPV (9.4-12.4) fL Immature Gran % (Auto) (0.0-0.4) % Neut % (Auto) (45-73) % Lymph % (Auto) (20-40) % [place] % (Auto) (2-11) % Eos % (Auto) (0-4) % Baso % (Auto) (0-2) % Lymph # (Auto) (1.2-4.9) X10*3/uL [place] # (Auto) (0.1-1.2) X10*3/uL Eos # (Auto) (0.0-0.4) X10*3/uL Baso # (Auto) (0.0-0.2) X10*3/uL Abs Immat Gran (auto) (0.00-0.03) X10*3/uL Absolute Neuts (auto) (2.0-8.3) X10*3/uL Absolute Nucleated RBC (0.0-0.012) X10*3/uL Nucleated RBC % (auto) (0.0-0.2) /100WBC PT 20.1 H D (10.8-13.0) SEC INR 1.7 H (0.9-1.1) APTT 28.7 (24.1-38.0) SEC Sodium (135-145) mmol/L Potassium (3.3-5.1) mmol/L Chloride (96-108) mmol/L Carbon Dioxide (22-29) mmol/L Anion Gap (12-20) BUN (9-16) mg/dL Creatinine (0.5-1.4) mg/dL Estim Creat Clear Calc Estimated GFR Random Glucose (60-115) mg/dL Lactic Acid (0.5-2.0) mmol/L Calcium (8.4-10.2) mg/dL Magnesium (1.6-2.6) mg/dL Total Bilirubin (0.0-1.0) mg/dL Direct Bilirubin (0.0-0.5) mg/dL AST (5-37) U/L ALT (0-40) U/L Alkaline Phosphatase (39-117) U/L Troponin I High Sens (<3.5-35.0) ng/L B-Natriuretic Peptide 1389 H (<100) pg/mL Total Protein (6.5-8.0) g/dL Albumin (3.5-5.0) g/dL Ethyl Alcohol mg/dL COVID-19 (MARISELA) Negative (Negative) COVID-19 Clin Com See Note 09/02/20 09/02/20 Range/Units 12:10 12:30 WBC (4.8-10.8) X10*3/uL RBC (4.60-5.80) X10*6/uL Hgb (14.0-18.0) g/dl Hct (42-52) % MCV (80-98) fL MCH (27.0-33.0) pg MCHC (31.0-36.0) g/dl RDW (11.0-16.0) % Plt Count (160-400) X10*3/uL MPV (9.4-12.4) fL Immature Gran % (Auto) (0.0-0.4) % Neut % (Auto) (45-73) % Lymph % (Auto) (20-40) % [place] % (Auto) (2-11) % Eos % (Auto) (0-4) % Baso % (Auto) (0-2) % Lymph # (Auto) (1.2-4.9) X10*3/uL [place] # (Auto) (0.1-1.2) X10*3/uL Eos # (Auto) (0.0-0.4) X10*3/uL Baso # (Auto) (0.0-0.2) X10*3/uL Abs Immat Gran (auto) (0.00-0.03) X10*3/uL Absolute Neuts (auto) (2.0-8.3) X10*3/uL Absolute Nucleated RBC (0.0-0.012) X10*3/uL Nucleated RBC % (auto) (0.0-0.2) /100WBC PT (10.8-13.0) SEC INR (0.9-1.1) APTT (24.1-38.0) SEC Sodium (135-145) mmol/L Potassium (3.3-5.1) mmol/L Chloride (96-108) mmol/L Carbon Dioxide (22-29) mmol/L Anion Gap (12-20) BUN (9-16) mg/dL Creatinine (0.5-1.4) mg/dL Estim Creat Clear Calc Estimated GFR Random Glucose (60-115) mg/dL Lactic Acid (0.5-2.0) mmol/L Calcium (8.4-10.2) mg/dL Magnesium (1.6-2.6) mg/dL Total Bilirubin (0.0-1.0) mg/dL Direct Bilirubin (0.0-0.5) mg/dL AST (5-37) U/L ALT (0-40) U/L Alkaline Phosphatase (39-117) U/L Troponin I High Sens 58.4 H D (<3.5-35.0) ng/L B-Natriuretic Peptide (<100) pg/mL Total Protein (6.5-8.0) g/dL Albumin (3.5-5.0) g/dL Ethyl Alcohol < 10 mg/dL COVID-19 (MARISELA) (Negative) COVID-19 Clin Com ECG Data Attestation: I personally reviewed and interpreted this ECG as follows: ECG interpretation date: 09/02/20 ECG interpretation time: 12:15 Interpretation: Rate: 104 Rhythm: sinus tachycardia [place]: normal Normal P waves. Normal TUTU. Normal QRS complex. ST T wave : no MARILEE, inverted t waves in III, aVF and V3 qTC: normal prior studies: changed inferior t wave inversions, poor study, significant artifact The study has been interpreted contemporaneously by me. . EKG#2 Rate: 90 Rhythm: NSR [place]: normal Normal P waves. Normal TUTU. Normal QRS complex. ST T wave : no MARILEE, inverted T waves in III, aVF, V3 and V4 qTC: prolonged prior studies: no change from today The study has been interpreted contemporaneously by me. . Critical Care Time Critical Care Time Critical Care Time: Yes Total Critical Care Time: 60 Attestation: repeat nebs, repeat EKG, IV lasix I attest to this time spent taking care of the patient Discharge Plan Discharge Clinical Impression: Hypoxia, Elevated troponin, Shortness of breath, Bilateral edema of lower extremity, Anasarca Patient Disposition: Admitted As Inpatient
[2020-09-02 12:24] LABS: MANUAL DIFF FLAG NO
[2020-09-02 12:31] LABS: Basophils Percent Auto 0.2 % (0-2); Eosinophils Percent Auto 0.1 % (0-4); Hemoglobin 10.5 g/dl (14.0-18.0); Imm Gran Abs Auto 0.09 X10*3/uL (0.00-0.03); Imm Gran Pct Auto 0.7 % (0.0-0.4); Lymphocytes Absolute Auto 1.4 X10*3/uL (1.2-4.9); Lymphocytes Percent Auto 10.9 % (20-40); Mean Corpuscular HGB Conc 32.8 g/dl (31.0-36.0); Mean Corpuscular Hemoglobin 30.8 pg (27.0-33.0); Mean Corpuscular Volume 93.8 fL (80-98); Mean Platelet Volume 10.9 fL (9.4-12.4); Monocytes Absolute Auto 1.1 X10*3/uL (0.1-1.2); Monocytes Percent Auto 8.6 % (2-11); Neutrophils Absolute Auto 10.5 X10*3/uL (2.0-8.3); Neutrophils Percent Auto 79.5 % (45-73); Platelet Count 145 X10*3/uL (160-400); Red Blood Count 3.41 X10*6/uL (4.60-5.80); White Blood Count 13.1 X10*3/uL (4.8-10.8)
[2020-09-02 12:32] LABS: NRBC Pct Auto 2.2 /100WBC (0.0-0.2)
[2020-09-02 12:34] LABS: INTERNATIONAL NORM RATIO 1.7 (0.9-1.1); Prothrombin Time 20.1 SEC (10.8-13.0)
[2020-09-02 12:36] LABS: Partial Thromboplastin Time 28.7 SEC (24.1-38.0)
[2020-09-02 12:54] LABS: Lactic Acid 2.5 mmol/L (0.5-2.0)
[2020-09-02 12:57] LABS: COVID-19 Test Negative (Negative); IDNOW Serial# 9DD0AD1C
--- NOTE | 2020-09-02 12:57 | MHC.RECOVSUP ---
Recovery Support note: Patient is a 60 year old Kinyarwanda speaking male who presented [place] [facility] due to shortness of breath and swollen legs. Patient reports difficulty walking and pain in his legs. Patient reports using heroin prior to arrival due to the pain. Patient was seen by this director underwriter sales and Training Designer Julio. Patient reports he is currently staying at the [facility] in [place] and that he rents a motel the one night a week he can't stay there. Training Designer provided patient with information on [facility] which is half a block from the [facility]. Encouraged patient to utilize [facility] for ongoing support.
[2020-09-02 12:59] LABS: Alanine Aminotransferase 24 U/L (0-40); Albumin Level 2.7 g/dL (3.5-5.0); Alkaline Phosphatase 117 U/L (39-117); Anion Gap 13 (12-20); Aspartate Amino Transferase 54 U/L (5-37); Bilirubin Direct 3.3 mg/dL (0.0-0.5); Bilirubin Total 4.8 mg/dL (0.0-1.0); Blood Urea Nitrogen 35 mg/dL (9-16); Calcium 8.3 mg/dL (8.4-10.2); Carbon Dioxide 29 mmol/L (22-29); Chloride 103 mmol/L (96-108); Creatinine Clr Calc Pharmacy 97.8; Estimated Glomerular Filt Rate > 60; Glucose Random 100 mg/dL (60-115); Magnesium 2.2 mg/dL (1.6-2.6); Potassium 4.5 mmol/L (3.3-5.1); Sodium 140 mmol/L (135-145); Total Protein 6.4 g/dL (6.5-8.0)
[2020-09-02 13:01] LABS: B Type Natriuretic Peptide 1389 pg/mL (<100)
[2020-09-02 13:05] LABS: Ethanol < 10 mg/dL
[2020-09-02 13:07] LABS: Troponin-I High Sensitivity 58.4 ng/L (<3.5-35.0)
[2020-09-02] MEDS: iohexoL 350 MG/ML 100 ML INFUS..BTL 65 ML IV (13:28)
--- NOTE | 2020-09-02 14:01 | ECG_ITS ---
Test Reason : DIFF BREATHING Blood Pressure : / mmHG Vent. Rate : 090 BPM Atrial Rate : 090 BPM P-R Int : 126 ms QRS Dur : 078 ms QT Int : 368 ms P-R-T Axes : 056 042 -20 degrees QTc Int : 450 ms Normal sinus rhythm T wave abnormality, consider inferior ischemia Abnormal ECG When compared with ECG of 02-SEP-2020 11:50, No significant changes seen Referred By: Nataly Buck Electronically Signed By:MUKESH HUGHES
[2020-09-02] MEDS: cefEPime HCl 2 GM in 0.9 % Sodium Chloride 50 ML IV (14:05)
[2020-09-02] MEDS: methylPREDNISolone Sod Succ 125 MG/2 ML VIAL 60 MG IVPUSH (14:05)
[2020-09-02] MEDS: Magnesium Sulfate/H2O 2 GM/50 ML PIGGYBACK IV (14:05)
[2020-09-02] MEDS: Furosemide 40 MG/4 ML VIAL IVPUSH ×2 (14:06→23:02)
[2020-09-02] MEDS: Albuterol Sulfate (0.083%) 2.5 MG/3 ML VIAL.NEB INHALE (14:09)
[2020-09-02 14:21] LABS: Reflex Lactate? Lactic Acid Added
[2020-09-02 15:37] LABS: ~Lactic Acid-LAB USE ONLY 2.2 mmol/L (0.5-2.0)
[2020-09-02 17:15] LABS: Reflex Lactate? 2 Y
[2020-09-02 18:25] LABS: ~Lactic Acid-LAB USE ONLY 1.6 mmol/L (0.5-2.0)
[2020-09-02] MEDS: Aspirin 81 MG TAB.CHEW 162 MG PO (18:27)
[2020-09-02 18:40] LABS: Troponin-I High Sensitivity 58.5 ng/L (<3.5-35.0)
[2020-09-02 18:48] LABS: Amphetamine Screen Urine Not Detected (Not Detect); Barbiturates, Urine Not Detected (Not Detect); Benzodiazepines Screen Urine Not Detected (Not Detect); Cannabinoid Screen Urine Not Detected (Not Detect); Cocaine Screen Urine Not Detected (Not Detect); Opiate Screen Urine Not Detected (Not Detect); Phencyclidine Screen Urine Not Detected (Not Detect)
--- NOTE | 2020-09-02 19:40 | HP_ITS ---
DATE OF SERVICE: 09/02/2020 CHIEF COMPLAINT: Shortness of breath and chest discomfort with ambulation. HISTORY OF PRESENTING ILLNESS: This is a 60-year-old gentleman with past medical history significant for depression, PTSD with multiple hospitalization at for suicidal ideation, also history of cirrhosis with hepatitis C infection, diet-controlled diabetes mellitus, history of neuropathy and venous stasis dermatitis, who presented to [facility] for 1-week history of shortness of breath, dizziness, worse with exertion, gets better with rest. He also complained of associated chest discomfort with activity, radiating from lower ribs all the way up to the collarbone with no diaphoresis. No radiation of pain. No lightheadedness or dizziness. As per patient, he is not taking his diuretics, Lasix, or Aldactone for 1 week. He also complains of chills. He admits that he has been using bags of heroin for the last 3 weeks. Previously, he was on Suboxone once he was in a rehab center. The [place] [address], hematocrit of 32, platelet count 145. The patient's electrolytes are stable. BUN 35, creatinine is 0.97. Lactic acid 2.5, improved to 2.2. The patient also noted to have elevated bilirubin of 4.8 with a direct bilirubin 3.3. Troponin is 58 with an elevated BNP of 1389. His albumin is low at 2.7. Since the patient was noted to be significantly hypoxic on arrival to the emergency room, a CTA chest was obtained that showed no PE, but it showed diffuse ground-glass opacity bilaterally, likely related to infectious or inflammatory process. Pulmonary edema of cardiogenic or noncardiogenic etiology was also in the differential. The patient was treated in the emergency room with IV antibiotics, IV Lasix, IV steroids and now being admitted for further evaluation and treatment. PAST MEDICAL HISTORY: Significant for, 1. Peripheral neuropathy. 2. History of anxiety disorder. 3. History of depression with suicidal ideation. 4. History of PTSD. 5. History of chronic hepatitis C with cirrhosis of liver. 6. History of hypertension. 7. History of diet-controlled diabetes mellitus. PAST SURGICAL HISTORY: 1. Status post cholecystectomy. 2. Status post nasal surgery for correction of deviated septum. 3. He has titanium plates in his orbit. SOCIAL HISTORY: The patient lives in a alf. He smokes 3 to 4 cigarettes a day. He uses heroin on a regular basis. He is unable to quantify how much, but has been using bags of heroin. He denies IV drug use. He denies use of cocaine or marijuana. He denies alcohol abuse. The patient ambulates without assistive device. FAMILY HISTORY: Mother had melanoma, sister had brain aneurysm, and father is a diabetic. ALLERGIES: THE PATIENT IS ALLERGIC TO TYLENOL, UNKNOWN ALLERGY. CODEINE CAUSES RASH. PNEUMOCOCCAL VACCINE CAUSES PARALYSIS. TUBERCULIN PURIFIED PROTEIN CAUSED A RASH AND VENLAFAXINE, ALLERGIES UNKNOWN. MEDICATIONS: The patient's medications on admission are, 1. Mirtazapine 7.5 mg at bedtime. 2. Ativan 0.5 mg every 8 hours as needed for anxiety. 3. Ferrous sulfate 324 daily. 4. Suboxone 1 pill sublingually daily. 5. Lasix 40 mg daily. 6. Gabapentin 400 t.i.d. 7. Hydroxyzine 25 mg at bedtime as needed. 8. Multivitamin 1 p.o. daily. 9. Omeprazole 40 mg daily. 10. Seroquel 50 mg daily p.r.n. 11. Spironolactone 50 mg daily. 12. Tizanidine 4 mg p.o. q.8h. The patient's medication needs to be reconciled. 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 RESPIRATORY: He complains of shortness of breath with exertion. Denies any cough or sputum production. GI: He had couple episodes of vomiting in the last 2 days. He has constipation. : No urinary symptoms of urgency and frequency. Rest of all other systems are reviewed and are negative. PHYSICAL EXAMINATION: GENERAL: The patient is resting comfortably, able to talk in full sentences, does not appear to be in acute distress. NECK: Supple. Positive JVD. LUNGS: Clear to auscultation. Diminished breath sounds bilaterally. No wheeze or rhonchi. ABDOMEN: Obese and nontender. Bowel sounds are audible. No tenderness at right upper quadrant. EXTREMITIES: He has bilateral pitting edema. SKIN: Chronic venous stasis changes, both lower extremity. NEUROLOGIC: The patient is awake and alert to time, place, and person. Normal strength and tone. Speech is clear. PSYCHIATRIC: Appropriate affect. LABORATORY DATA: EKG showed T-wave inversion in AVF, lead 3, V3 and V4. WBC 50484. Lactic acid 2.5. Total bilirubin 4.8, direct bilirubin 3.3, AST 54. Troponin 58.4. Albumin 2.7. CTA chest as mentioned early. ASSESSMENT AND PLAN: This is a 60-year-old gentleman with known history of cirrhosis related to hepatitis C, history of peripheral neuropathy and diet-controlled diabetes, who presented to [facility] due to worsening bilateral lower extremity edema, shortness of breath and chest pain with exertion, relieved with rest. The patient's workup is concerning for pneumonia, question congestive heart failure versus generalized anasarca due to underlying cirrhosis/elevated troponin concerning for acute coronary syndrome with abnormal EKG. PROBLEM LIST: 1. Sepsis with pneumonia. The patient noted to have elevated WBC count and lactic acidosis. The patient has been started on IV antibiotic, doxycycline, and cefepime. We will follow 2 sets of blood cultures. Follow CBC, clinical course. We will place the patient on cough medication. 2. Acute respiratory failure due to pneumonia/CHF. CTA neg for PE. The patient will be treated with antibiotics and diuretics. Continue O2 support. Encourage incentive spirometry. We will follow clinical course closely. 3. Generalized swelling with elevated BNP, likely related to generalized anasarca versus acute congestive heart failure. The patient's last echocardiogram from July 2017, showed a normal EF of 60% to 65%. There was no valvular pathology. The patient was noted to have moderate pulmonary hypertension. He had normal diastolic function. Question acute CHF related to right-sided heart failure. We will repeat an echocardiogram. Treat the patient with IV diuretics. Follow I's and O's closely, daily weight. Obtain a Cardiology consultation. There is no prior history of systolic or diastolic dysfunction. The patient stopped using his diuretics, likely causing worsening edema. 4. Elevated troponin with chest pain. The patient's chest pain is concerning with exertion. We will repeat troponin. If it is higher than the initial troponin, then we will place the patient cautiously on IV heparin, place the patient on low-dose beta blockers and aspirin. Lipid profile obtained. We will obtain an echocardiogram and Cardiology consultation. 5. Elevated bilirubin, both direct and indirect and elevated AST. The patient with underlying history of cirrhosis/ hx of hep C. We will repeat LFTs tomorrow morning. Currently, the patient has no abdominal discomfort. Continue to monitor clinical course. 6. History of anxiety and depression. We will resume home medications. 7. Deep vein thrombosis prophylaxis. We will use Lovenox. MD TREVOR Osorio/DOMINIK / [id number] MTDD
--- NOTE | 2020-09-02 20:54 | PC.NURSE ---
Attempted to call [facility] to give RN to RN report. [facility] RN unavailable at this time, plan to call back. Awaiting call back to give report. Pt requested and given turkey sandwich. Sitter remains at bedside. Monitor remains in place with no changes noted at this time.
--- NOTE | 2020-09-02 21:25 | PC.NURSE ---
RN to RN report given to CLAUDE Banuelos on [facility]. Preparing for transfer to room 468.
[2020-09-02] MEDS: Mirtazapine 7.5 MG TABLET PO (23:01)
[2020-09-02] MEDS: LORazepam 0.5 MG TABLET PO (23:01)
[2020-09-02] MEDS: Metoprolol Tartrate 12.5 MG HALFTAB PO (23:01)
[2020-09-02] MEDS: cefEPime HCl 1 GM in 0.9 % Sodium Chloride 50 ML IV (23:02)
[2020-09-02] MEDS: Enoxaparin Sodium 40 MG/0.4 ML SYRINGE SUBCUT (23:02)
[2020-09-03] VITALS (7 sets, daily range): BP systolic 107–144; BP diastolic 67–76; PULSE 64–88; RESP 18–20; TEMP 36.2–36.7; O2SAT 90–98
[2020-09-03] MEDS: Doxycycline Hyclate 100 MG in 0.9 % Sodium Chloride 250 ML 166.67 MG IV ×3 (00:19→20:37)
[2020-09-03 06:22] LABS: MANUAL DIFF FLAG NO
[2020-09-03 06:39] LABS: Basophils Percent Auto 0.1 % (0-2); Hematocrit 31.6 % (42-52); Hemoglobin 10.3 g/dl (14.0-18.0); Imm Gran Abs Auto 0.14 X10*3/uL (0.00-0.03); Imm Gran Pct Auto 0.9 % (0.0-0.4); Lymphocytes Absolute Auto 1.2 X10*3/uL (1.2-4.9); Lymphocytes Percent Auto 7.8 % (20-40); Mean Corpuscular HGB Conc 32.6 g/dl (31.0-36.0); Mean Corpuscular Hemoglobin 30.2 pg (27.0-33.0); Mean Corpuscular Volume 92.7 fL (80-98); Mean Platelet Volume 10.8 fL (9.4-12.4); Monocytes Absolute Auto 0.7 X10*3/uL (0.1-1.2); Monocytes Percent Auto 4.8 % (2-11); Neutrophils Percent Auto 86.4 % (45-73); Platelet Count 117 X10*3/uL (160-400); Red Blood Count 3.41 X10*6/uL (4.60-5.80); Red Cell Distribution Width 21.2 % (11.0-16.0)
[2020-09-03 06:59] LABS: B Type Natriuretic Peptide 1031 pg/mL (<100)
[2020-09-03 07:10] LABS: Alanine Aminotransferase 21 U/L (0-40); Albumin Level 2.5 g/dL (3.5-5.0); Alkaline Phosphatase 111 U/L (39-117); Anion Gap 12 (12-20); Aspartate Amino Transferase 53 U/L (5-37); Bilirubin Direct 2.6 mg/dL (0.0-0.5); Bilirubin Total 3.3 mg/dL (0.0-1.0); Blood Urea Nitrogen 41 mg/dL (9-16); Calcium 8.1 mg/dL (8.4-10.2); Carbon Dioxide 29 mmol/L (22-29); Chloride 102 mmol/L (96-108); Creatinine Clr Calc Pharmacy 93.9; Estimated Glomerular Filt Rate > 60; Glucose Random 130 mg/dL (60-115); Potassium 4.7 mmol/L (3.3-5.1); Sodium 138 mmol/L (135-145); Total Protein 6.3 g/dL (6.5-8.0)
[2020-09-03 07:18] LABS: NRBC Pct Auto 3.5 /100WBC (0.0-0.2)
--- NOTE | 2020-09-03 08:58 | MHC.CM.PN ---
Patient lives at the [facility], and rents a motel room 1/week on the night that [facility] stay [facility] the [facility]. Goal for dc is to return to the [facility] and CM has initiated and will follow for dc planning. PCP is from [facility]. The Care Team is already involved (Heroin).
--- NOTE | 2020-09-03 09:08 | ECG_ITS ---
Test Reason : FOLLOW UP Blood Pressure : / mmHG Vent. Rate : 071 BPM Atrial Rate : 071 BPM P-R Int : 156 ms QRS Dur : 082 ms QT Int : 458 ms P-R-T Axes : 056 032 -20 degrees QTc Int : 497 ms Normal sinus rhythm T wave abnormality, consider inferior ischemia Nonspecific ST and T wave abnormality Prolonged QT Abnormal ECG When compared with ECG of 02-SEP-2020 14:45, No significant change was found Referred By: Nataly Buck Electronically Signed By:MUKESH HUGHES
--- NOTE | 2020-09-03 09:24 | CA_ITS ---
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 The visually estimated ejection fraction is between 55-60%. - Mildly increased right ventricular cavity size. - There is moderate tricuspid valve regurgitation. - Mild pulmonary hypertension is present. - The inferior vena cava is mildly dilated and collapses less than 50% with inspiration. Findings Left Ventricle Normal left ventricular cavity size. There is mildly increased left ventricular wall thickness. The left ventricular systolic function is normal. The visually estimated ejection fraction is between 55-60%. There is no evidence of regional wall motion abnormalities. E/E prime ratio is between 8 and 15 consistent with indeterminate filling pressures. Evidence suggests grade I (mild) diastolic dysfunction. Right Ventricle Mildly increased right ventricular cavity size. There is normal right ventricular systolic function. Atria The left atrium is mildly dilated. Aortic Valve There is a normal trileaflet aortic valve. There is no aortic valve stenosis. There is no aortic valve regurgitation. Mitral Valve The mitral valve appears normal. There is trace mitral valve regurgitation. There is no mitral valve stenosis. Pulmonic Valve The pulmonic valve was not well visualized. Tricuspid Valve Normal tricuspid valve structure. There is moderate tricuspid valve regurgitation. The right ventricular systolic pressure is 45 mmHg. Mild pulmonary hypertension is present. Great Vessels The aortic annulus, sinuses of valsalva, and asc aorta are normal in size. Venous The inferior vena cava is mildly dilated and collapses less than 50% with inspiration. Pericardium/Pleural There is no evidence of pericardial effusion. Prior Study Comparison Changes noted compared to prior study dated: 08/03/2018. Measurements 2D Linear Measurements IVSd: 1.28 0.6-0.9/0.6-1.0 cm LVIDd: 4.41 3.9-5.3/4.2-5.9 cm LVIDd Index: 1.99 2.4-3.2/2.2-3.1 cm/m2 LVIDs: 2.77 2.0-3.6 cm LVPWd: 1.20 0.7-1.1 cm Ao Root: 2.90 2.1-3.5 cm LA Diam: 4.30 2.7-3.8/3.0-4.0 cm LAIDs Index: 1.94 1.5-2.3 cm/m2 LV Mass: 250.97 67-162/88-224 g LV Mass Index: 113.05 43-95/49-115 g/m2 LVOT Diam: 2.10 3.0+(-)1.3 cm 2D Systolic Function EF 4C: 51.90 >55% EF 2C: 57.50 >55% EF BiP: 57.10 >55% Mitral Valve MV Pk E: 0.84 MV PK A: 0.90 MV Decel Time: 191.00 E/A: 0.90 E'Lateral: 13.20 E'Medial: 6.42 E/E' Med: 13.10 E/E' Lat: 6.40 PHT: 56.00 MVA PHT: 3.93 Decel Cowley: 4.40 Aortic Valve AoV Pk Sharif: 1.48 AoV Mn Sharif: 1.12 AoV VTI: 0.38 AoV Pk Grad: 9.00 Aov Mn Grad: 6.00 GREGORIO Cont.VTI: 2.35 LVOT LVOT Pk Sharif: 1.05 LVOT Mn Sharif: 0.73 LVOT VTI: 0.26 LVOT Pk Grad: 4.00 LVOT Mn Grad: 2.00 LVOT Diam: 2.10 LVOT Area: 3.46 Diastolic Function MV Pk E: 0.84 MV Pk A: 0.90 E/A: 0.90 E'Medial: 6.42 E/E' Med: 13.10 E' Laterial: 13.20 E/E' Lat: 6.40 Tricuspid Valve TR Pk Sharif: 2.74 TR Pk Grad: 30.00 RA Press: 15.00 RVSP: 45.00 Great Vessels Aorta Ao Root-2D: 2.90 2.0-3.7 cm Ao Asc: 3.50 2.1-3.4 cm Pulmonary Valve PV Pk Sharif: 0.95 Peak PV Grad: 4.00 Updated in Other Vendor System with Status of Final Yamil Connor MD electronically signed on 09/03/2020 3:20:05 PM with status of Final
[2020-09-03] MEDS: Furosemide 40 MG/4 ML VIAL IVPUSH ×2 (09:35→22:15)
[2020-09-03] MEDS: Metoprolol Tartrate 12.5 MG HALFTAB PO ×2 (09:36→20:39)
[2020-09-03] MEDS: LORazepam 0.5 MG TABLET PO ×2 (09:40→20:44)
--- NOTE | 2020-09-03 10:35 | PM.CNCAR ---
History of Present Illness History of Present Illness Date of Service: 09/03/20 Consult reason: congestive heart failure Chief complaint: Shortness of breath/ bilateral leg edema Narrative: This is a cardiology consultation regarding congestive heart failure. He has a past history significant for depression, PTSD and prior hospitalizations in the psychiatric unit. He also has a history of cirrhosis, venous stasis and multiple other comorbidities.. He states that he has not been feeling good for the last few days and has been having increasing leg swelling. He has also been having increasing shortness of breath and that led to the hospitalization. He was detected to have elevated troponins as well as cardiac BNP. He is being treated for heart failure. We have been asked to see him for further management. There is no clear history of any prior coronary disease or myocardial infarction or cardiomyopathy. Review of Systems Review of Systems: Yes all other systems are reviewed and are negative Cardiovascular: Cardiovascular: Reports as per HPI, Reports no additional cardiovascular complaints, Denies acrocyanosis, Denies cool extremities, Denies painful fingertips, Denies chest pain, Denies chest pain at rest, Denies diaphoresis, Denies syncope, Denies irregular heart rhythm, Denies claudication, Reports leg edema, Denies lightheadedness, Denies palpitations and Reports dyspnea Respiratory: Respiratory: Reports dyspnea Neurologic: Denies syncope Endocrine: Endocrine: Denies palpitations [facility] Past Medical History Medical History (Updated 09/03/20 @ 10:42 by Yamil Connor MD) Anxiety Cerebral microvascular disease Depression Diet-controlled diabetes mellitus 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 Hepatitis C virus HTN (hypertension) Liver cirrhosis Major depress dis, severe Major depression in partial remission Neuropathy Opioid use disorder, moderate, in controlled environment Physical deconditioning PTSD (post-traumatic stress disorder) Substance abuse Suicidal ideations Venous stasis dermatitis Family History Family History Father Diabetes Family history: reviewed and not pertinent Surgical History Surgical History H/O splenectomy Hx of cholecystectomy S/P correction of deviated nasal septum Social History Social History Household Members: None Housing: Homeless Do you presently have visiting nurse or other home services: No Alcohol intake: former Smoking Status: Current every day smoker Tobacco Type: Cigarette Packs Per Day: 1 Cigarettes Per Day: 3 Years Smoked: 40 Smoked in Last 30 Days: Yes Patient Interested in Nicotine Replacement: Yes Patient Given Instructions on How to Stop Smoking: No Second Hand Smoke Exposure: Yes Use of substances other than those prescribed or required for medical reasons: Yes Substance Use Type: Opiates Substance Use Frequency: Daily Last Used Substance: Just Prior to Admission Currently Displaying Signs/Symptoms of Drug Intoxication Withdrawal: No Any prior treatment program specific to substance use: Yes Have you been hit, kicked, punched, or otherwise hurt by someone within the past year? If so, by whom?: No Do you feel safe in your current relationship?: No Current Relationship Is there a partner from a previous relationship who is making you feel unsafe now?: No Advance Directives: No Advance Directives Information Provided: No Do you have thoughts of harming others: None Do you have a plan to hurt others: No Plan Recently lost weight without trying: Yes service: Yes Current occupational status: unemployed Sexual orientation: Straight/Heterosexual Meds Allergies Allergy/AdvReac Type Severity Reaction Status Date / Time acetaminophen [From TYLENOL] Allergy Unknown UNK Verified 08/14/20 23:59 codeine [CODEINE] Allergy Unknown RASH Verified 08/14/20 23:59 pneumococcal vaccine Allergy Unknown PARALYSIS Verified 08/14/20 23:59 [PNEUMOCOCCAL VACCINE] tuberculin, purified protein Allergy Unknown RASH Verified 08/14/20 23:59 deriva [TUBERCULIN, PURIFIED PROTEIN DERIVA] venlafaxine [From EFFEXOR] AdvReac Unknown UNKNOWN Verified 08/14/20 23:59 Active Medications: Current Medications Generic Name Dose Route Start Last Admin Trade Name Freq PRN Reason Stop Dose Admin Albuterol/Ipratropium 3 ml 09/02/20 16:56 Albuterol/Iprat 2.5/0.5mg 3 Ml Ampul.Neb INHALE QID PRN shortness of breath Enoxaparin Sodium 40 mg 09/02/20 20:00 09/02/20 23:02 Enoxaparin Sodium 40 Mg/0.4 Ml Syringe SUBCUT 40 mg Q24H ELISEO Administration Furosemide 40 mg 09/02/20 21:00 09/03/20 09:35 Furosemide 40 Mg/4 Ml Vial IVPUSH 40 mg BID ELISEO Administration Protocol Doxycycline Hyclate 100 mg/ 250 mls @ 166.67 mls/hr 09/02/20 21:00 09/03/20 09:35 Sodium Chloride IV 166.67 mls/hr BID ELISEO Administration Cefepime HCl 2 gm/ Sodium 50 mls @ 100 mls/hr 09/03/20 10:00 Chloride IV Q8H ELISEO Lorazepam 0.5 mg 09/02/20 16:54 09/03/20 09:40 Lorazepam 0.5 Mg Tablet PO 0.5 mg Q8H PRN Administration Anxiety Metoprolol Tartrate 12.5 mg 09/02/20 21:00 09/03/20 09:36 Metoprolol Tartrate 12.5 Mg Halftab PO 12.5 mg BID ELISEO Administration Protocol Mirtazapine 7.5 mg 09/02/20 21:00 09/02/20 23:01 Mirtazapine 7.5 Mg Tablet PO 7.5 mg BEDTIME ELISEO Administration Ondansetron HCl 4 mg 09/02/20 16:54 Ondansetron Hcl 4 Mg/2 Ml Vial IVPUSH Q8H PRN Nausea Pharmacy Consult 1 each 09/02/20 16:54 Consult Rx Perform Med Rec MISCELLANE ONCE PRN Consult order Home Medications Medication Instructions Recorded Confirmed Last Taken Type vvvcxkgrrbvn-soek-bmuhe acid 1 tab PO DAILY 06/29/20 09/02/20 Unknown History [Certavite-Antioxidant] buprenorphine-naloxone [Suboxone] film SUBLINGUAL DAILY 09/02/20 Unknown History Physical Exam Vital Signs: Vital Signs: Last Vital Signs Temp 97.2 F 09/03/20 08:00 Pulse 88 09/03/20 08:00 Resp 20 09/03/20 08:00 BP 134/76 09/03/20 08:00 Pulse Ox 90 L 09/03/20 08:00 Body Mass Index 29.8 Const: General: cooperative, comfortable and no acute distress Orientation/consciousness: patient oriented x3 HENMT: Other: Unremarkable Neck: Neck: Yes normal visual inspection Chest: Chest palpation & inspection: normal inspection of the chest Resp: Auscultation: clear to auscultation bilaterally, no crackles and no wheezes Cardio: Jugular venous distension: no JVD Palpation: normal PMI Heart sounds: S1 normal heart sound present, S2 normal heart sound present, no gallops, no murmurs and no rubs GI: Palpation (GI): Soft to palpation Back/Spine/Pelvis: Other: unremarkable Skin: General skin exam: no rashes or lesions noted Neuro: General: patient oriented x3 Extrem: General: Yes edema (1+) Psych: Mental Status: mental status grossly normal Results Labs and Meds Result diagrams: 09/03/20 05:48 09/03/20 05:48 Lab results: Laboratory Results - last 24 hr 09/02/20 09/02/20 09/02/20 12:10 12:10 12:10 WBC 13.1 H RBC 3.41 L Hgb 10.5 L Hct 32.0 L MCV 93.8 MCH 30.8 MCHC 32.8 RDW 21.0 H Plt Count 145 L MPV 10.9 Immature Gran % (Auto) 0.7 H Neut % (Auto) 79.5 H Lymph % (Auto) 10.9 L [place] % (Auto) 8.6 Eos % (Auto) 0.1 Baso % (Auto) 0.2 Lymph # (Auto) 1.4 Sandoval # (Auto) 1.1 Eos # (Auto) 0.0 Baso # (Auto) 0.0 Abs Immat Gran (auto) 0.09 H Absolute Neuts (auto) 10.5 H Absolute Nucleated RBC 0.290 H Nucleated RBC % (auto) 2.2 H PT INR APTT Sodium 140 Potassium 4.5 D Chloride 103 Carbon Dioxide 29 Anion Gap 13 BUN 35 H D Creatinine 0.97 Estim Creat Clear Calc 97.8 Estimated GFR > 60 Random Glucose 100 Lactic Acid 2.5 H* Lactic Acid Fup @ 2Hr Lactic Acid Fup @ 4Hr Calcium 8.3 L Magnesium 2.2 Total Bilirubin 4.8 H Direct Bilirubin 3.3 H AST 54 H ALT 24 Alkaline Phosphatase 117 D Troponin I High Sens B-Natriuretic Peptide Total Protein 6.4 L Albumin 2.7 L Urine Opiates Screen Ur Barbiturates Screen Ur Phencyclidine Scrn Ur Amphetamines Screen U Benzodiazepines Scrn Urine Cocaine Screen U Marijuana (THC) Screen Ethyl Alcohol COVID-19 (MARISELA) COVID-19 Clin Com 09/02/20 09/02/20 09/02/20 12:10 12:10 12:10 WBC RBC Hgb Hct MCV MCH MCHC RDW Plt Count MPV Immature Gran % (Auto) Neut % (Auto) Lymph % (Auto) Sandoval % (Auto) Eos % (Auto) Baso % (Auto) Lymph # (Auto) Sandoval # (Auto) Eos # (Auto) Baso # (Auto) Abs Immat Gran (auto) Absolute Neuts (auto) Absolute Nucleated RBC Nucleated RBC % (auto) PT 20.1 H D INR 1.7 H APTT 28.7 Sodium Potassium Chloride Carbon Dioxide Anion Gap BUN Creatinine Estim Creat Clear Calc Estimated GFR Random Glucose Lactic Acid Lactic Acid Fup @ 2Hr Lactic Acid Fup @ 4Hr Calcium Magnesium Total Bilirubin Direct Bilirubin AST ALT Alkaline Phosphatase Troponin I High Sens B-Natriuretic Peptide 1389 H Total Protein Albumin Urine Opiates Screen Ur Barbiturates Screen Ur Phencyclidine Scrn Ur Amphetamines Screen U Benzodiazepines Scrn Urine Cocaine Screen U Marijuana (THC) Screen Ethyl Alcohol COVID-19 (MARISELA) Negative COVID-[employer] See Note 09/02/20 09/02/20 09/02/20 12:10 12:30 14:39 WBC RBC Hgb Hct MCV MCH MCHC RDW Plt Count MPV Immature Gran % (Auto) Neut % (Auto) Lymph % (Auto) Sandoval % (Auto) Eos % (Auto) Baso % (Auto) Lymph # (Auto) [place] # (Auto) Eos # (Auto) Baso # (Auto) Abs Immat Gran (auto) Absolute Neuts (auto) Absolute Nucleated RBC Nucleated RBC % (auto) PT INR APTT Sodium Potassium Chloride Carbon Dioxide Anion Gap BUN Creatinine Estim Creat Clear Calc Estimated GFR Random Glucose Lactic Acid Lactic Acid Fup @ 2Hr 2.2 H* Lactic Acid Fup @ 4Hr Calcium Magnesium Total Bilirubin Direct Bilirubin AST ALT Alkaline Phosphatase Troponin I High Sens 58.4 H D B-Natriuretic Peptide Total Protein Albumin Urine Opiates Screen Ur Barbiturates Screen Ur Phencyclidine Scrn Ur Amphetamines Screen U Benzodiazepines Scrn Urine Cocaine Screen U Marijuana (THC) Screen Ethyl Alcohol < 10 COVID-19 (MARISELA) COVID-[employer] 09/02/20 09/02/20 09/02/20 17:58 17:58 18:15 WBC RBC Hgb Hct MCV MCH MCHC RDW Plt Count MPV Immature Gran % (Auto) Neut % (Auto) Lymph % (Auto) Sandoval % (Auto) Eos % (Auto) Baso % (Auto) Lymph # (Auto) Sandoval # (Auto) Eos # (Auto) Baso # (Auto) Abs Immat Gran (auto) Absolute Neuts (auto) Absolute Nucleated RBC Nucleated RBC % (auto) PT INR APTT Sodium Potassium Chloride Carbon Dioxide Anion Gap BUN Creatinine Estim Creat Clear Calc Estimated GFR Random Glucose Lactic Acid Lactic Acid Fup @ 2Hr Lactic Acid Fup @ 4Hr 1.6 Calcium Magnesium Total Bilirubin Direct Bilirubin AST ALT Alkaline Phosphatase Troponin I High Sens 58.5 H B-Natriuretic Peptide Total Protein Albumin Urine Opiates Screen Not Detected Ur Barbiturates Screen Not Detected Ur Phencyclidine Scrn Not Detected Ur Amphetamines Screen Not Detected U Benzodiazepines Scrn Not Detected Urine Cocaine Screen Not Detected U Marijuana (THC) Screen Not Detected Ethyl Alcohol COVID-19 (MARISELA) COVID-19 [facility] 09/03/20 09/03/20 09/03/20 05:48 05:48 05:48 WBC 15.0 H RBC 3.41 L Hgb 10.3 L Hct 31.6 L MCV 92.7 MCH 30.2 MCHC 32.6 RDW 21.2 H Plt Count 117 L MPV 10.8 Immature Gran % (Auto) 0.9 H Neut % (Auto) 86.4 H Lymph % (Auto) 7.8 L Sandoval % (Auto) 4.8 Eos % (Auto) 0.0 Baso % (Auto) 0.1 Lymph # (Auto) 1.2 Sandoval # (Auto) 0.7 Eos # (Auto) 0.0 Baso # (Auto) 0.0 Abs Immat Gran (auto) 0.14 H Absolute Neuts (auto) 13.0 H Absolute Nucleated RBC 0.530 H Nucleated RBC % (auto) 3.5 H PT INR APTT Sodium 138 Potassium 4.7 Chloride 102 Carbon Dioxide 29 Anion Gap 12 BUN 41 H Creatinine 1.01 Estim Creat Clear Calc 93.9 Estimated GFR > 60 Random Glucose 130 H Lactic Acid Lactic Acid Fup @ 2Hr Lactic Acid Fup @ 4Hr Calcium 8.1 L Magnesium Total Bilirubin 3.3 H Direct Bilirubin 2.6 H AST 53 H ALT 21 Alkaline Phosphatase 111 Troponin I High Sens B-Natriuretic Peptide 1031 H Total Protein 6.3 L Albumin 2.5 L Urine Opiates Screen Ur Barbiturates Screen Ur Phencyclidine Scrn Ur Amphetamines Screen U Benzodiazepines Scrn Urine Cocaine Screen U Marijuana (THC) Screen Ethyl Alcohol COVID-19 (MARISELA) COVID-19 Clin Com ECG Attestation: I personally reviewed and interpreted this ECG as follows: Interpretation: EKG with sinus rhythm, inverted T-waves in the inferior leads which seems new were compared to prior studies; there is also T inversion in V3 and V4. Imaging Radiologist's impression: Impressions Chest X-Ray 09/02/20 11:41 IMPRESSION: No evidence of acute pulmonary artery embolus. No evidence of thoracic aortic aneurysm or dissection. Diffuse ground glass opacity bilaterally which may be related to infectious or inflammatory process as described above. Pulmonary edema of cardiogenic or noncardiogenic etiology would also be within the differential diagnosis but without significant peribronchial wall thickening present this would seem less likely. Cardiomegaly. Portal hypertension with varices. Right nephrolithiasis. Mild mediastinal lymphadenopathy. VTE: negative CLINICAL INFORMATION: Dyspnea COMPARISON: June 29, 2020 TECHNIQUE: AP portable chest FINDINGS: Patient has developed bilateral regions of interstitial and airspace disease since previous study. No pneumothorax or pleural effusion. Heart upper limits of normal in size. IMPRESSION: Bilateral interstitial and airspace disease. This may be on an infectious or inflammatory in nature such as Covid 19 or atypical or viral pneumonia. Pulmonary edema of cardiogenic or noncardiogenic etiology can also have this appearance. Chest CTA 09/02/20 11:55 IMPRESSION: No evidence of acute pulmonary artery embolus. No evidence of thoracic aortic aneurysm or dissection. Diffuse ground glass opacity bilaterally which may be related to infectious or inflammatory process as described above. Pulmonary edema of cardiogenic or noncardiogenic etiology would also be within the differential diagnosis but without significant peribronchial wall thickening present this would seem less likely. Cardiomegaly. Portal hypertension with varices. Right nephrolithiasis. Mild mediastinal lymphadenopathy. VTE: negative CLINICAL INFORMATION: Dyspnea COMPARISON: June 29, 2020 TECHNIQUE: AP portable chest FINDINGS: Patient has developed bilateral regions of interstitial and airspace disease since previous study. No pneumothorax or pleural effusion. Heart upper limits of normal in size. IMPRESSION: Bilateral interstitial and airspace disease. This may be on an infectious or inflammatory in nature such as Covid 19 or atypical or viral pneumonia. Pulmonary edema of cardiogenic or noncardiogenic etiology can also have this appearance. Assessment and Plan (1) Acute heart failure: Qualifiers: Heart failure type: unspecified Qualified Code(s): I50.9 - Heart failure, unspecified Status: Acute (2) Elevated troponin: Status: Acute (3) Substance abuse: Status: Acute Cardiac BNP is elevated to 1389. High sensitivity troponins 58 followed by 58. In April 2020, it was 4. Edema possibly from heart failure but it could also be from his chronic liver disease as he has low albumin. He also has active substance use including heroin. He has been using bags of heroin for the last 3 weeks. For now, we can do empiric diuresis. He might have underlying CAD but considering the overall clinical picture, not a good candidate for ischemia workup. Reasonable to get an echocardiogram for assessing cardiac function.
--- NOTE | 2020-09-03 11:59 | HO.PM.IMPN ---
Subjective Subjective Date of Service: 09/03/20 Interval History: Patient feels better this morning denies shortness of breath demanded to leave against medical advice denies withdrawal symptoms, no tremors , no palpitation, no sweating or generalized body ache. ROS General no headache, no dizziness, no fever chills. CVS no chest pain, no palpitation. Respiratory no cough, denies shortness of breath Gastrointestinal no nausea, no vomiting, no abdominal pain, no constipation Physical Exam Vital Signs: Vital Signs: Last Vital Signs Temp 97.2 F 09/03/20 08:00 Pulse 88 09/03/20 08:00 Resp 20 09/03/20 08:00 BP 134/76 09/03/20 08:00 Pulse Ox 90 L 09/03/20 08:00 Body Mass Index 29.8 General resting comfortably in no acute distress. Neck no JVD. CVS regular rate rhythm, Respiratory lungs clear to auscultation, no respiratory distress, no rales, no rhonchi. Gastrointestinal abdomen soft, nontender, bowel sounds audible,no guarding , no rigidity. Extremities bilateral edema Neuro nonfocal, speech clear. Skin no rash Objective Data Current Medications Generic Name Dose Route Start Last Admin Trade Name Freq PRN Reason Stop Dose Admin Albuterol/Ipratropium 3 ml 09/02/20 16:56 Albuterol/Iprat 2.5/0.5mg 3 Ml Ampul.Neb INHALE QID PRN shortness of breath Enoxaparin Sodium 40 mg 09/02/20 20:00 09/02/20 23:02 Enoxaparin Sodium 40 Mg/0.4 Ml Syringe SUBCUT 40 mg Q24H ELISEO Administration Furosemide 40 mg 09/02/20 21:00 09/03/20 09:35 Furosemide 40 Mg/4 Ml Vial IVPUSH 40 mg BID ELISEO Administration Protocol Doxycycline Hyclate 100 mg/ 250 mls @ 166.67 mls/hr 09/02/20 21:00 09/03/20 11:13 Sodium Chloride IV Infused BID ELISEO Infusion Cefepime HCl 2 gm/ Sodium 50 mls @ 100 mls/hr 09/03/20 10:00 Chloride IV Q8H ELISEO Lorazepam 0.5 mg 09/02/20 16:54 09/03/20 09:40 Lorazepam 0.5 Mg Tablet PO 0.5 mg Q8H PRN Administration Anxiety Metoprolol Tartrate 12.5 mg 09/02/20 21:00 09/03/20 09:36 Metoprolol Tartrate 12.5 Mg Halftab PO 12.5 mg BID ELISEO Administration Protocol Mirtazapine 7.5 mg 09/02/20 21:00 09/02/20 23:01 Mirtazapine 7.5 Mg Tablet PO 7.5 mg BEDTIME ELISEO Administration Ondansetron HCl 4 mg 09/02/20 16:54 Ondansetron Hcl 4 Mg/2 Ml Vial IVPUSH Q8H PRN Nausea Pharmacy Consult 1 each 09/02/20 16:54 Consult Rx Perform Med Rec MISCELLANE ONCE PRN Consult order Labs CBC & Chem 7: 09/03/20 05:48 09/03/20 05:48 Assessment and Plan (1) Acute heart failure: Status: Acute (2) Acute respiratory failure with hypoxia: Status: Acute (3) Substance abuse: Status: Acute (4) Elevated troponin: Status: Acute (5) Bilateral edema of lower extremity: Status: Acute (6) PTSD (post-traumatic stress disorder): Problem details: hx of childhood trauma, trauma and trauma while incarcerated. Status: Acute Assessment and Plan: 60-year-old gentleman with known history of cirrhosis related to hepatitis C, history of peripheral neuropathy and diet-controlled diabetes, who presented to [facility] due to worsening bilateral lower extremity edema,shortness of breath and chest pain with exertion, relieved with rest. The patient's workup is concerning for pneumonia, question congestive heart failure versus generalized anasarca due to underlying cirrhosis/elevated troponin concerning for acute coronary syndrome with abnormal EKG. 1. Sepsis with pneumonia. No fevers, tachycardia resolved persistent leukocytosis likely due to steroids, overall patient feeling better will continue IV cefepime and, doxycycline day 2, blood cultures x2 neg. Continue current treatment and supportive care follow clinical course. 2. Acute respiratory failure due to pneumonia/CHF. As above continue antibiotics and diuretics, gradually wean oxygen, out of bed to chair encourage incentive spirometery. 3. Generalized swelling with elevated BNP, likely related to generalized anasarca with history of cirrhosis,low Alb. versus acute right-sided congestive heart failure. Patient feeling better denies shortness of breath, no chest pain, BNP trended down from 1389 to 1031 last echocardiogram from July 2017, showed a normal EF of 60% to 65%, no valvular pathology,moderate pulmonary hypertension, normal diastolic function, follow echocardiogram. Continue IV diuretics,follow I's and O's closely, daily weight, case discussed with Cardiology, Dr. Connor await echo report, patient is not a candidate for ischemic workup at this time. 4. Elevated troponin with chest pain. Troponin remains flat no further bout of chest pain will follow echo , follow lipid profile, continue aspirin and beta-gina 5. Elevated bilirubin, both direct and indirect and elevated AST. h/o hep C, LFTs are trending down , no abdominal pain, no nausea, vomiting tolerating diet, follow LFTs hold on further workup 6. History of anxiety and depression. resume home medications. 7. Opiate use disorder patient actively using heroin will consult [facility] for possible recommendation of Suboxone. 8. Deep vein thrombosis prophylaxis. on Lovenox.
[2020-09-03] MEDS: cefEPime HCl 2 GM in 0.9 % Sodium Chloride 50 ML IV ×2 (13:05→19:59)
--- NOTE | 2020-09-03 16:25 | HO.ADDICTCON ---
History of Present Illness Date of Service: 09/03/2020 Chief Complaint: Shortness of breath/ bilateral leg edema Reason for Consult: Opioid use disorder Requesting physician: Andrew Miles Discussed with referring provider: No Sources of Information: patient interviewed and chart reviewed HPI Narrative: Patient is a 60 year old male with history of opioid use disorer currently medically admitted with acute CHF. Patient known to the junior copywriter via previous admissions. Patient poor historian, providing various responses to questions asked including when he was last prescribed buprenorphine--[facility] shows last rx filled in June for one month. He reports he is currently using several bags to 1/2 bundle daily of heroin. He reports he is experiencing withdrawal sx including abdominal pain, anxiety and lose stools. Of note, patient does not appear to be experiencing any discomfort at time of interview. UDS negative for all substances (though does not test for fentanyl). Past Psychiatric History: Multiple hospital stays - approximately 20 Most recent admission to August 2019. Most recent [facility], [place], November 2019 [facility] He has no current providers but has been seen by N in the past Medical Evaluation Reviewed: Yes Personal & Social History: Residing at [facility] in [facility] Review of Systems Constitutional: Reports as per HPI and Reports no additional constitutional complaints Diagnostics Vital Signs (24Hr): Vital Signs - 24 hr 09/02/20 17:49 09/02/20 20:00 09/02/20 21:13 Temperature 98.2 F 97.7 F Pulse Rate 82 79 80 Respiratory Rate 19 20 14 Blood Pressure 117/72 116/79 Pulse Oximetry 95 93 93 09/02/20 21:53 09/02/20 23:01 09/02/20 23:06 Temperature 97.8 F 97.0 F Pulse Rate 83 83 81 Respiratory Rate 18 18 Blood Pressure 124/82 124/82 109/71 Pulse Oximetry 88 L 90 L 09/03/20 03:12 09/03/20 08:00 09/03/20 12:00 Temperature 97.8 F 97.2 F 97.9 F Pulse Rate 72 88 74 Respiratory Rate 18 20 20 Blood Pressure 107/72 134/76 116/73 Pulse Oximetry 90 L 90 L 90 L 09/03/20 15:25 Temperature 98.0 F Pulse Rate 76 Respiratory Rate 19 Blood Pressure 111/67 Pulse Oximetry 91 L Body Mass Index 29.8 Labs Results: 09/03/20 05:48 09/03/20 05:48 Labs: Laboratory Results - last 48 hr 09/02/20 09/02/20 09/02/20 12:10 12:10 12:10 WBC 13.1 H RBC 3.41 L Hgb 10.5 L Hct 32.0 L MCV 93.8 MCH 30.8 MCHC 32.8 RDW 21.0 H Plt Count 145 L MPV 10.9 Immature Gran % (Auto) 0.7 H Neut % (Auto) 79.5 H Lymph % (Auto) 10.9 L Bland % (Auto) 8.6 Eos % (Auto) 0.1 Baso % (Auto) 0.2 Lymph # (Auto) 1.4 Bland # (Auto) 1.1 Eos # (Auto) 0.0 Baso # (Auto) 0.0 Abs Immat Gran (auto) 0.09 H Absolute Neuts (auto) 10.5 H Absolute Nucleated RBC 0.290 H Nucleated RBC % (auto) 2.2 H Smear Path Review PT INR APTT Sodium 140 Potassium 4.5 D Chloride 103 Carbon Dioxide 29 Anion Gap 13 BUN 35 H D Creatinine 0.97 Estim Creat Clear Calc 97.8 Estimated GFR > 60 Random Glucose 100 Lactic Acid 2.5 H* Lactic Acid Fup @ 2Hr Lactic Acid Fup @ 4Hr Calcium 8.3 L Magnesium 2.2 Total Bilirubin 4.8 H Direct Bilirubin 3.3 H AST 54 H ALT 24 Alkaline Phosphatase 117 D Troponin I High Sens B-Natriuretic Peptide Total Protein 6.4 L Albumin 2.7 L Urine Opiates Screen Ur Barbiturates Screen Ur Phencyclidine Scrn Ur Amphetamines Screen U Benzodiazepines Scrn Urine Cocaine Screen U Marijuana (THC) Screen Ethyl Alcohol COVID-19 ([facility]) COVID-19 Clin Com 09/02/20 09/02/20 09/02/20 12:10 12:10 12:10 WBC RBC Hgb Hct MCV MCH MCHC RDW Plt Count MPV Immature Gran % (Auto) Neut % (Auto) Lymph % (Auto) Bland % (Auto) Eos % (Auto) Baso % (Auto) Lymph # (Auto) Bland # (Auto) Eos # (Auto) Baso # (Auto) Abs Immat Gran (auto) Absolute Neuts (auto) Absolute Nucleated RBC Nucleated RBC % (auto) Smear Path Review PT 20.1 H D INR 1.7 H APTT 28.7 Sodium Potassium Chloride Carbon Dioxide Anion Gap BUN Creatinine Estim Creat Clear Calc Estimated GFR Random Glucose Lactic Acid Lactic Acid Fup @ 2Hr Lactic Acid Fup @ 4Hr Calcium Magnesium Total Bilirubin Direct Bilirubin AST ALT Alkaline Phosphatase Troponin I High Sens B-Natriuretic Peptide 1389 H Total Protein Albumin Urine Opiates Screen Ur Barbiturates Screen Ur Phencyclidine Scrn Ur Amphetamines Screen U Benzodiazepines Scrn Urine Cocaine Screen U Marijuana (THC) Screen Ethyl Alcohol COVID-19 (MARISELA) Negative COVID-19 Clin Com See Note 09/02/20 09/02/20 09/02/20 12:10 12:30 14:39 WBC RBC Hgb Hct MCV MCH MCHC RDW Plt Count MPV Immature Gran % (Auto) Neut % (Auto) Lymph % (Auto) Bland % (Auto) Eos % (Auto) Baso % (Auto) Lymph # (Auto) Bland # (Auto) Eos # (Auto) Baso # (Auto) Abs Immat Gran (auto) Absolute Neuts (auto) Absolute Nucleated RBC Nucleated RBC % (auto) Smear Path Review PT INR APTT Sodium Potassium Chloride Carbon Dioxide Anion Gap BUN Creatinine Estim Creat Clear Calc Estimated GFR Random Glucose Lactic Acid Lactic Acid Fup @ 2Hr 2.2 H* Lactic Acid Fup @ 4Hr Calcium Magnesium Total Bilirubin Direct Bilirubin AST ALT Alkaline Phosphatase Troponin I High Sens 58.4 H D B-Natriuretic Peptide Total Protein Albumin Urine Opiates Screen Ur Barbiturates Screen Ur Phencyclidine Scrn Ur Amphetamines Screen U Benzodiazepines Scrn Urine Cocaine Screen U Marijuana (THC) Screen Ethyl Alcohol < 10 COVID-19 (MARISELA) COVID-19 [place] EXTENDED STAYS Com 09/02/20 09/02/20 09/02/20 17:58 17:58 18:15 WBC RBC Hgb Hct MCV MCH MCHC RDW Plt Count MPV Immature Gran % (Auto) Neut % (Auto) Lymph % (Auto) Bland % (Auto) Eos % (Auto) Baso % (Auto) Lymph # (Auto) Bland # (Auto) Eos # (Auto) Baso # (Auto) Abs Immat Gran (auto) Absolute Neuts (auto) Absolute Nucleated RBC Nucleated RBC % (auto) Smear Path Review PT INR APTT Sodium Potassium Chloride Carbon Dioxide Anion Gap BUN Creatinine Estim Creat Clear Calc Estimated GFR Random Glucose Lactic Acid Lactic Acid Fup @ 2Hr Lactic Acid Fup @ 4Hr 1.6 Calcium Magnesium Total Bilirubin Direct Bilirubin AST ALT Alkaline Phosphatase Troponin I High Sens 58.5 H B-Natriuretic Peptide Total Protein Albumin Urine Opiates Screen Not Detected Ur Barbiturates Screen Not Detected Ur Phencyclidine Scrn Not Detected Ur Amphetamines Screen Not Detected U Benzodiazepines Scrn Not Detected Urine Cocaine Screen Not Detected U Marijuana (THC) Screen Not Detected Ethyl Alcohol COVID-19 (MARISELA) COVID-19 Clin Com 09/03/20 09/03/20 09/03/20 05:48 05:48 05:48 WBC 15.0 H RBC 3.41 L Hgb 10.3 L Hct 31.6 L MCV 92.7 MCH 30.2 MCHC 32.6 RDW 21.2 H Plt Count 117 L MPV 10.8 Immature Gran % (Auto) 0.9 H Neut % (Auto) 86.4 H Lymph % (Auto) 7.8 L Bland % (Auto) 4.8 Eos % (Auto) 0.0 Baso % (Auto) 0.1 Lymph # (Auto) 1.2 Bland # (Auto) 0.7 Eos # (Auto) 0.0 Baso # (Auto) 0.0 Abs Immat Gran (auto) 0.14 H Absolute Neuts (auto) 13.0 H Absolute Nucleated RBC 0.530 H Nucleated RBC % (auto) 3.5 H Smear Path Review SEE NOTE PT INR APTT Sodium 138 Potassium 4.7 Chloride 102 Carbon Dioxide 29 Anion Gap 12 BUN 41 H Creatinine 1.01 Estim Creat Clear Calc 93.9 Estimated GFR > 60 Random Glucose 130 H Lactic Acid Lactic Acid Fup @ 2Hr Lactic Acid Fup @ 4Hr Calcium 8.1 L Magnesium Total Bilirubin 3.3 H Direct Bilirubin 2.6 H AST 53 H ALT 21 Alkaline Phosphatase 111 Troponin I High Sens B-Natriuretic Peptide 1031 H Total Protein 6.3 L Albumin 2.5 L Urine Opiates Screen Ur Barbiturates Screen Ur Phencyclidine Scrn Ur Amphetamines Screen U Benzodiazepines Scrn Urine Cocaine Screen U Marijuana (THC) Screen Ethyl Alcohol COVID-19 (MARISELA) COVID-19 Clin Com Imaging Radiology Impressions: ITS Impressions Chest X-Ray 09/02/20 11:41 IMPRESSION: No evidence of acute pulmonary artery embolus. No evidence of thoracic aortic aneurysm or dissection. Diffuse ground glass opacity bilaterally which may be related to infectious or inflammatory process as described above. Pulmonary edema of cardiogenic or noncardiogenic etiology would also be within the differential diagnosis but without significant peribronchial wall thickening present this would seem less likely. Cardiomegaly. Portal hypertension with varices. Right nephrolithiasis. Mild mediastinal lymphadenopathy. VTE: negative CLINICAL INFORMATION: Dyspnea COMPARISON: June 29, 2020 TECHNIQUE: AP portable chest FINDINGS: Patient has developed bilateral regions of interstitial and airspace disease since previous study. No pneumothorax or pleural effusion. Heart upper limits of normal in size. IMPRESSION: Bilateral interstitial and airspace disease. This may be on an infectious or inflammatory in nature such as Covid 19 or atypical or viral pneumonia. Pulmonary edema of cardiogenic or noncardiogenic etiology can also have this appearance. Chest CTA 09/02/20 11:55 IMPRESSION: No evidence of acute pulmonary artery embolus. No evidence of thoracic aortic aneurysm or dissection. Diffuse ground glass opacity bilaterally which may be related to infectious or inflammatory process as described above. Pulmonary edema of cardiogenic or noncardiogenic etiology would also be within the differential diagnosis but without significant peribronchial wall thickening present this would seem less likely. Cardiomegaly. Portal hypertension with varices. Right nephrolithiasis. Mild mediastinal lymphadenopathy. VTE: negative CLINICAL INFORMATION: Dyspnea COMPARISON: June 29, 2020 TECHNIQUE: AP portable chest FINDINGS: Patient has developed bilateral regions of interstitial and airspace disease since previous study. No pneumothorax or pleural effusion. Heart upper limits of normal in size. IMPRESSION: Bilateral interstitial and airspace disease. This may be on an infectious or inflammatory in nature such as Covid 19 or atypical or viral pneumonia. Pulmonary edema of cardiogenic or noncardiogenic etiology can also have this appearance. Mental Status Exam Mental Status Exam Patient Appearance: Appropriate Patient Orientation: Person, Place, Time and Situation Level of Consciousness: Awake, Appropriate and Alert Patient Behavior: Appropriate Mood Description: Calm Affect Description: Calm Ability to Follow Directions: Excellent Speech Pattern: Clear Hallucinations: None Thought Process: Intact Thought Content: positive for Intact and positive for [place] Judgement: Fair Medications Medications Current Medications Generic Name Dose Route Start Last Admin Trade Name Freq PRN Reason Stop Dose Admin Albuterol/Ipratropium 3 ml 09/02/20 16:56 Albuterol/Iprat 2.5/0.5mg 3 Ml Ampul.Neb INHALE QID PRN shortness of breath Enoxaparin Sodium 40 mg 09/02/20 20:00 09/02/20 23:02 Enoxaparin Sodium 40 Mg/0.4 Ml Syringe SUBCUT 40 mg Q24H ELISEO Administration Furosemide 40 mg 09/02/20 21:00 09/03/20 09:35 Furosemide 40 Mg/4 Ml Vial IVPUSH 40 mg BID ELISEO Administration Protocol Doxycycline Hyclate 100 mg/ 250 mls @ 166.67 mls/hr 09/02/20 21:00 09/03/20 11:13 Sodium Chloride IV Infused BID ELISEO Infusion Cefepime HCl 2 gm/ Sodium 50 mls @ 100 mls/hr 09/03/20 12:30 09/03/20 13:58 Chloride IV Infused Q8H ELISEO Infusion Lorazepam 0.5 mg 09/02/20 16:54 09/03/20 09:40 Lorazepam 0.5 Mg Tablet PO 0.5 mg Q8H PRN Administration Anxiety Metoprolol Tartrate 12.5 mg 09/02/20 21:00 09/03/20 09:36 Metoprolol Tartrate 12.5 Mg Halftab PO 12.5 mg BID ELISEO Administration Protocol Mirtazapine 7.5 mg 09/02/20 21:00 09/02/20 23:01 Mirtazapine 7.5 Mg Tablet PO 7.5 mg BEDTIME ELISEO Administration Ondansetron HCl 4 mg 09/02/20 16:54 Ondansetron Hcl 4 Mg/2 Ml Vial IVPUSH Q8H PRN Nausea Pharmacy Consult 1 each 09/02/20 16:54 Consult Rx Perform Med Rec MISCELLANE ONCE PRN Consult order Allergies Allergies Allergy/AdvReac Type Severity Reaction Status Date / Time acetaminophen [From TYLENOL] Allergy Unknown UNK Verified 08/14/20 23:59 codeine [CODEINE] Allergy Unknown RASH Verified 08/14/20 23:59 pneumococcal vaccine Allergy Unknown PARALYSIS Verified 08/14/20 23:59 [PNEUMOCOCCAL VACCINE] tuberculin, purified protein Allergy Unknown RASH Verified 08/14/20 23:59 deriva [TUBERCULIN, PURIFIED PROTEIN DERIVA] venlafaxine [From EFFEXOR] AdvReac Unknown UNKNOWN Verified 08/14/20 23:59 Assessment & Plan Assessment & Plan (1) Opioid use disorder, moderate, in controlled environment: Status: Acute Code(s): F11.20 - Opioid dependence, uncomplicated Recommendations: can start with low dose suboxone 4mg BID this junior copywriter can reassess on Sunday; please [place] message with any questions regarding suboxone dosing. 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 Hepatitis C virus HTN (hypertension) Liver cirrhosis Major depress dis, severe Major depression in partial remission Neuropathy Opioid use disorder, moderate, in controlled environment Physical deconditioning PTSD (post-traumatic stress disorder) Substance abuse Suicidal ideations Venous stasis dermatitis Family History Family History Father Diabetes Family history: reviewed and not pertinent Surgical History Surgical History H/O splenectomy Hx of cholecystectomy S/P correction of deviated nasal septum Social History Social History Household Members: None Housing: Homeless Do you presently have visiting nurse or other home services: No Alcohol intake: former Smoking Status: Current every day smoker Tobacco Type: Cigarette Packs Per Day: 1 Cigarettes Per Day: 3 Years Smoked: 40 Smoked in Last 30 Days: Yes Patient Interested in Nicotine Replacement: Yes Patient Given Instructions on How to Stop Smoking: No Second Hand Smoke Exposure: Yes Use of substances other than those prescribed or required for medical reasons: Yes Substance Use Type: Opiates Substance Use Frequency: Daily Last Used Substance: Just Prior to Admission Currently Displaying Signs/Symptoms of Drug Intoxication Withdrawal: No Any prior treatment program specific to substance use: Yes Have you been hit, kicked, punched, or otherwise hurt by someone within the past year? If so, by whom?: No Do you feel safe in your current relationship?: No Current Relationship Is there a partner from a previous relationship who is making you feel unsafe now?: No Advance Directives: No Advance Directives Information Provided: No Do you have thoughts of harming others: None Do you have a plan to hurt others: No Plan Recently lost weight without trying: Yes service: Yes Current occupational status: unemployed Sexual orientation: Straight/Heterosexual
[2020-09-03 17:46] LABS: Cholesterol 92 mg/dL; HDL Cholesterol 11 mg/dL; LDL Cholesterol Calculated 69 mg/dl; Triglycerides 64 mg/dL
[2020-09-03] MEDS: QUEtiapine Fumarate 50 MG TABLET PO (18:42)
[2020-09-03] MEDS: Enoxaparin Sodium 40 MG/0.4 ML SYRINGE SUBCUT (19:58)
[2020-09-03] MEDS: Gabapentin 400 MG CAPSULE PO (20:39)
[2020-09-03] MEDS: Mirtazapine 7.5 MG TABLET PO (20:39)
[2020-09-04] VITALS (11 sets, daily range): BP systolic 104–143; BP diastolic 54–90; PULSE 58–102; RESP 18–25; TEMP 35.8–36.9; O2SAT 91–96
[2020-09-04] MEDS: LORazepam 2 MG/ML VIAL 1 MG IVPUSH (02:19)
[2020-09-04] MEDS: cefEPime HCl 2 GM in 0.9 % Sodium Chloride 50 ML IV ×3 (05:08→21:21)
[2020-09-04 07:05] LABS: Basophils Percent Auto 0.1 % (0-2); MANUAL DIFF FLAG SCAN; SCAN SMEAR FLAG 1
[2020-09-04 07:08] LABS: Imm Gran Abs Auto 0.25 X10*3/uL (0.00-0.03); Imm Gran Pct Auto 1.2 % (0.0-0.4); Lymphocytes Absolute Auto 1.3 X10*3/uL (1.2-4.9); Lymphocytes Percent Auto 6.2 % (20-40); Mean Corpuscular HGB Conc 33.3 g/dl (31.0-36.0); Mean Corpuscular Hemoglobin 30.9 pg (27.0-33.0); Mean Corpuscular Volume 92.7 fL (80-98); Monocytes Percent Auto 4.7 % (2-11); Neutrophils Absolute Auto 18.3 X10*3/uL (2.0-8.3); Neutrophils Percent Auto 87.8 % (45-73); Platelet Count 102 X10*3/uL (160-400); Red Blood Count 3.56 X10*6/uL (4.60-5.80); Red Cell Distribution Width 21.8 % (11.0-16.0); White Blood Count 20.8 X10*3/uL (4.8-10.8)
[2020-09-04 07:13] LABS: NRBC Pct Auto 3.7 /100WBC (0.0-0.2); PLT ABN DIST 1
[2020-09-04 07:40] LABS: Alanine Aminotransferase 19 U/L (0-40); Albumin Level 2.4 g/dL (3.5-5.0); Alkaline Phosphatase 129 U/L (39-117); Anion Gap 11 (12-20); Aspartate Amino Transferase 42 U/L (5-37); Bilirubin Direct 1.5 mg/dL (0.0-0.5); Blood Urea Nitrogen 45 mg/dL (9-16); Carbon Dioxide 29 mmol/L (22-29); Chloride 105 mmol/L (96-108); Creatinine Clr Calc Pharmacy 115.7; Estimated Glomerular Filt Rate > 60; Glucose Random 130 mg/dL (60-115); Potassium 4.2 mmol/L (3.3-5.1); Sodium 141 mmol/L (135-145)
[2020-09-04 07:42] LABS: B Type Natriuretic Peptide 836 pg/mL (<100)
[2020-09-04 07:54] LABS: SLIDE REVIEW VERIFIED
[2020-09-04] MEDS: FLUoxetine HCl 20 MG CAPSULE 40 MG PO (08:58)
[2020-09-04] MEDS: Metoprolol Tartrate 12.5 MG HALFTAB PO ×2 (08:58→21:28)
[2020-09-04] MEDS: Gabapentin 400 MG CAPSULE PO ×3 (08:58→21:29)
[2020-09-04] MEDS: Furosemide 40 MG/4 ML VIAL IVPUSH (08:58)
[2020-09-04] MEDS: Doxycycline Hyclate 100 MG in 0.9 % Sodium Chloride 250 ML 166.67 MG IV ×2 (08:58→22:04)
--- NOTE | 2020-09-04 10:52 | HO.PM.IMPN ---
Subjective Subjective Date of Service: 09/05/20 Interval History: Patient this morning was noted to be somnolent arousable, demanding to leave the hospital with son, although aware of place and person, denies shortness of breath feels he is doing well, noted to be soaked in urine, refusing John catheter, overnight noted to have oxygenation in 70s therefore on 100% non-rebreather. Patient receive 1 mg of Ativan echo to a.m. due to restlessness. Patient is somnolent arousable unable to obtain a detailed review of system however REFERRAL SPECIALIST no headache, no dizziness, no fever chills. CVS no chest pain, no palpitation. Respiratory no sob Gastrointestinal no nausea, no vomiting, no abdominal pain Physical Exam Vital Signs: Vital Signs: Last Vital Signs Temp 97.1 F 09/04/20 07:41 Pulse 58 09/04/20 07:41 Resp 20 09/04/20 07:41 BP 114/69 09/04/20 07:41 Pulse Ox 96 09/04/20 07:41 Body Mass Index 29.8 General drowsy, somnolent but arousable, answer questions appropriately. Neck is supple no JVD. CVS regular rate rhythm, Respiratory lungs clear to auscultation, no respiratory distress, no wheeze, no rhonchi, no use of accessory muscles. Gastrointestinal abdomen soft, nontender, bowel sounds audible,no guarding , no rigidity. Extremities bilateral edema Neuro moving all 4 extremity speech clear. Skin no rash Objective Data Current Medications Generic Name Dose Route Start Last Admin Trade Name Freq PRN Reason Stop Dose Admin Albuterol/Ipratropium 3 ml 09/02/20 16:56 Albuterol/Iprat 2.5/0.5mg 3 Ml Ampul.Neb INHALE QID PRN shortness of breath Enoxaparin Sodium 40 mg 09/02/20 20:00 09/03/20 19:58 Enoxaparin Sodium 40 Mg/0.4 Ml Syringe SUBCUT 40 mg Q24H ELISEO Administration Fluoxetine HCl 40 mg 09/04/20 09:00 09/04/20 08:58 Fluoxetine Hcl 20 Mg Capsule PO 40 mg DAILY ELISEO Administration Furosemide 40 mg 09/02/20 21:00 09/04/20 08:58 Furosemide 40 Mg/4 Ml Vial IVPUSH 40 mg BID ELISEO Administration Protocol Gabapentin 400 mg 09/03/20 21:00 09/04/20 08:58 Gabapentin 400 Mg Capsule PO 400 mg TID ELISEO Administration Doxycycline Hyclate 100 mg/ 250 mls @ 166.67 mls/hr 09/02/20 21:00 09/04/20 10:33 Sodium Chloride IV Infused BID ELISEO Infusion Cefepime HCl 2 gm/ Sodium 50 mls @ 100 mls/hr 09/03/20 12:30 09/04/20 05:54 Chloride IV Infused Q8H ELISEO Infusion Lorazepam 0.5 mg 09/02/20 16:54 09/03/20 20:44 Lorazepam 0.5 Mg Tablet PO 0.5 mg Q8H PRN Administration Anxiety Metoprolol Tartrate 12.5 mg 09/02/20 21:00 09/04/20 08:58 Metoprolol Tartrate 12.5 Mg Halftab PO 12.5 mg BID ELISEO Administration Protocol Mirtazapine 7.5 mg 09/02/20 21:00 09/03/20 20:39 Mirtazapine 7.5 Mg Tablet PO 7.5 mg BEDTIME ELISEO Administration Omeprazole 40 mg 09/04/20 06:30 09/04/20 05:12 Omeprazole 40 Mg Capsule.Dr PO Not Given DAILY@0630 ELISEO Ondansetron HCl 4 mg 09/02/20 16:54 Ondansetron Hcl 4 Mg/2 Ml Vial IVPUSH Q8H PRN Nausea Pharmacy Consult 1 each 09/02/20 16:54 Consult Rx Perform Med Rec MISCELLANE ONCE PRN Consult order Quetiapine Fumarate 50 mg 09/03/20 16:49 09/03/20 18:42 Quetiapine Fumarate 50 Mg Tablet PO 50 mg DAILY PRN Administration agitation Tizanidine HCl 4 mg 09/03/20 16:55 Tizanidine Hcl 4 Mg Tablet PO Q8H PRN muscle spasticity Labs CBC & Chem 7: 09/05/20 06:15 09/05/20 06:15 Microbiology Microbiology Results: Microbiology 09/02/20 12:30 Blood - Venous Blood Culture - Preliminary No growth after 24 hours. 09/02/20 12:10 Blood - Venous Blood Culture - Preliminary No growth after 24 hours. Assessment and Plan (1) Acute respiratory failure with hypoxia: Problem details: there is concern over pneumonia There is no COVID seen Also atypical organisms could be concern as well as opioid use disorder and drug damage to lung Status: Acute (2) Opioid use disorder, moderate, in controlled environment: Status: Acute (3) Substance abuse: Status: Acute (4) Acute heart failure: Status: Acute (5) Elevated troponin: Status: Acute (6) Bilateral edema of lower extremity: Status: Acute (7) Anasarca: Status: Acute (8) PTSD (post-traumatic stress disorder): Problem details: hx of childhood trauma, trauma and trauma while incarcerated. Status: Acute Assessment and Plan: 60-year-old gentleman with known history of cirrhosis related to hepatitis C, history of peripheral neuropathy and diet-controlled diabetes, who presented to [facility] due to worsening bilateral lower extremity edema,shortness of breath and chest pain with exertion, relieved with rest. The patient's workup is concerning for pneumonia, question congestive heart failure versus generalized anasarca due to underlying cirrhosis/elevated troponin concerning for acute coronary syndrome with abnormal EKG. Acute respiratory failure with hypoxia patient this morning noted to be somnolent placed on 100% of oxygen overnight, finger oximetry in mid 80s patient being treated for congestive heart failure and pneumonia unable to maintain log of output since patient is incontinent and refusing John catheter, however BNP is trending down Generalized swelling also contributed by underlying cirrhosis,and hypoalbuminemia echocardiogram showed stable EF 55-60% no evidence of regional wall motion abnormality there is evidence of mild diastolic dysfunction. Normal ammonia level CT chest on admission suggestive of diffuse ground-glass opacities bilaterally related to infectious or inflammatory process there was no evidence of acute PE, COVID test negative VBG showed a pH 7.39 bicarb 34 with a pCO2 of 56 consistent with chronic compensation case discussed with he is concerned about COVID infection with abnormal CT and recommend IV dexamethasone, IV remdesivir and to repeat COVID test/and respiratory panel He also recommended IV Lasix drip, will consult ID for possible remdesivir / repeat COVID test Continue oxygen support with high-flow oxygen, follow VBG this evening Sepsis with pneumonia. No fevers, tachycardia resolved worsening leukocytosis likely due to steroids,continue IV cefepime and, doxycycline day 3, blood cultures x2 neg. Continue current treatment. Elevated troponin with chest pain. Troponin remains flat no further bout of chest pain continue aspirin and beta-gina Elevated bilirubin, both direct and indirect and elevated AST. h/o hep C, LFTs are trending down , no abdominal pain, no nausea, vomiting tolerating diet, follow LFTs hold on further workup History of anxiety and depression. On home medications Seroquel, trazodone and as needed Ativan. Will DC Ativan. Opiate use disorder patient actively using heroin seen by Yana South she recommend to use Suboxone. Has not use Suboxone in last several days at home, patient at present does not appear to have withdrawal symptoms Deep vein thrombosis prophylaxis. on Lovenox/inr 1.7.
[2020-09-04 11:29] LABS: Venous Blood Gas Refer to POC result
[2020-09-04 11:30] LABS: VBG Base Excess 7.9 mmol/L; VBG HCO3 34 mmol/L (22-26); VBG pCO2 56 mmHg; VBG pH 7.39 (7.32-7.43); VBG pO2 66 mmHg
[2020-09-04 11:42] LABS: Ammonia 40 umol/L (13-55)
[2020-09-04 12:39] LABS: Basophils Percent Auto 0.1 % (0-2); Hemoglobin 12.1 g/dl (14.0-18.0); Imm Gran Pct Auto 0.9 % (0.0-0.4); MANUAL DIFF FLAG SCAN; SCAN SMEAR FLAG 1
[2020-09-04 12:41] LABS: Lymphocytes Absolute Auto 1.6 X10*3/uL (1.2-4.9); Mean Corpuscular HGB Conc 32.7 g/dl (31.0-36.0); Mean Corpuscular Hemoglobin 30.6 pg (27.0-33.0); Mean Corpuscular Volume 93.4 fL (80-98); Monocytes Percent Auto 4.5 % (2-11); Neutrophils Absolute Auto 19.4 X10*3/uL (2.0-8.3); Neutrophils Percent Auto 87.5 % (45-73); Red Blood Count 3.96 X10*6/uL (4.60-5.80); White Blood Count 22.2 X10*3/uL (4.8-10.8)
[2020-09-04 12:42] LABS: NRBC Pct Auto 3.6 /100WBC (0.0-0.2); PLT ABN DIST 1
[2020-09-04 13:09] LABS: C Reactive Protein 7.96 mg/dL (< or = 0.50); Glucose Random 102 mg/dL (60-115); Lactate Dehydrogenase 762 U/L (118-273); Magnesium 2.1 mg/dL (1.6-2.6)
[2020-09-04 13:12] LABS: COVID-19 Test Negative (Negative)
[2020-09-04 13:26] LABS: Platelet Count 108 X10*3/uL (160-400)
[2020-09-04 13:34] LABS: Procalcitonin 0.22 ng/mL
[2020-09-04] MEDS: dexAMETHasone sod phosphate 4 MG/ML VIAL 6 MG IVPUSH (13:45)
[2020-09-04 15:22] LABS: Influenza A PCR NEGATIVE (Negative); Influenza B PCR NEGATIVE (Negative); Resp Syncy Virus RNA Qual PCR NEGATIVE (Negative); SARS COV2 PCR INHOUSE NEGATIVE (Negative)
[2020-09-04] MEDS: Furosemide 500 MG in Container,Empty 0 ML IVCONT (15:34)
--- NOTE | 2020-09-04 15:49 | PC.NURSE ---
P: Hypoxia. Patient lethargic, arousable but falls right back asleep. Attempted to take patient of 100% nonrebreather to eat breakfast but o2 sat dropped to 60's on 6L nasal cannula. Ventimask 55% applied but sats remain in 80's. I: Dr. Miles in to see patient. ABG's ordered. Respiratory unable to collect. Invasive Manager up to see patient and able to obtain ABG's and labs through femoral stick. Rapid covid test sent. Patient placed back on 100% nonrebreather. Sats up to 95%. Dry cough noted. CTA chest ordered. Nasopharyngeal swab also obtained for FLU/SARS/RSV. Lasix drip ordered. E: Patient more alert this afternoon and stating he is really hungry. Sats dropping to low 80's on cannula while eating. Remains on 100% nonrebreather. ordered high flow o2. Rapid covid neg. Patient diuresing well - over 1700cc this 7-3 shift.
[2020-09-04 19:17] LABS: Cholesterol 105 mg/dL; HDL Cholesterol 10 mg/dL; LDL Cholesterol Calculated 73 mg/dl; Triglycerides 110 mg/dL
[2020-09-04 20:01] LABS: Venous Blood Gas Refer to POC result
[2020-09-04 20:01] LABS: VBG Base Excess 8.9 mmol/L; VBG HCO3 34 mmol/L (22-26); VBG pCO2 47 mmHg; VBG pH 7.45 (7.32-7.43); VBG pO2 79 mmHg
[2020-09-04] MEDS: Enoxaparin Sodium 40 MG/0.4 ML SYRINGE SUBCUT (21:21)
[2020-09-04] MEDS: Mirtazapine 7.5 MG TABLET PO (21:29)
[2020-09-04] MEDS: QUEtiapine Fumarate 50 MG TABLET PO (21:47)
--- NOTE | 2020-09-04 22:02 | W.PM.IDCN ---
History of Present Illness Data of Consult Service Date: 09/04/20 Primary Care Provider: [facility] HPI Reason for consult: shortness of breath He presents to hospital with five days shortness of breath. He has no productivs sputum No one else is ill CT some hazy opacities Review of Systems Review of Systems: Yes all other systems are reviewed and are negative PMFSH Past Medical History Medical History (Updated 09/17/20 @ 12:52 by Shola Mcgovern MD) Anxiety Cerebral microvascular disease Depression Diet-controlled diabetes mellitus 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 Hepatitis C virus HTN (hypertension) Liver cirrhosis Major depress dis, severe Major depression in partial remission Neuropathy Opioid use disorder, moderate, in controlled environment Physical deconditioning PTSD (post-traumatic stress disorder) Substance abuse Suicidal ideations Venous stasis dermatitis Family History Family History Father Diabetes Family history: reviewed and not pertinent Surgical History Surgical History H/O splenectomy Hx of cholecystectomy S/P correction of deviated nasal septum Social History Social History Household Members: None Housing: Homeless Do you presently have visiting nurse or other home services: No Alcohol intake: former Smoking Status: Current every day smoker Tobacco Type: Cigarette Packs Per Day: 1 Cigarettes Per Day: 3 Years Smoked: 40 Smoked in Last 30 Days: Yes Patient Interested in Nicotine Replacement: Yes Patient Given Instructions on How to Stop Smoking: No Second Hand Smoke Exposure: Yes Use of substances other than those prescribed or required for medical reasons: Yes Substance Use Type: Opiates Substance Use Frequency: Daily Last Used Substance: Just Prior to Admission Currently Displaying Signs/Symptoms of Drug Intoxication Withdrawal: No Any prior treatment program specific to substance use: Yes Have you been hit, kicked, punched, or otherwise hurt by someone within the past year? If so, by whom?: No Do you feel safe in your current relationship?: No Current Relationship Is there a partner from a previous relationship who is making you feel unsafe now?: No Advance Directives: No Advance Directives Information Provided: No Suicidal Behavior: History of suicide attemps Current/Past Psychiatric Disorders: Chronic mental illess, PTSD and Substance abuse You Symptoms: Impulsivity Access to Firearms: No Do you have thoughts of harming others: None Do you have a plan to hurt others: No Plan Recently lost weight without trying: Yes service: Yes Current occupational status: unemployed Sexual orientation: Straight/Heterosexual Meds Allergies Allergy/AdvReac Type Severity Reaction Status Date / Time acetaminophen [From TYLENOL] Allergy Unknown UNK Verified 08/14/20 23:59 codeine [CODEINE] Allergy Unknown RASH Verified 08/14/20 23:59 pneumococcal vaccine Allergy Unknown PARALYSIS Verified 08/14/20 23:59 [PNEUMOCOCCAL VACCINE] tuberculin, purified protein Allergy Unknown RASH Verified 08/14/20 23:59 deriva [TUBERCULIN, PURIFIED PROTEIN DERIVA] venlafaxine [From EFFEXOR] AdvReac Unknown UNKNOWN Verified 08/14/20 23:59 Active Medications: Current Medications Generic Name Dose Route Start Last Admin Trade Name Freq PRN Reason Stop Dose Admin Albuterol/Ipratropium 3 ml 09/02/20 16:56 Albuterol/Iprat 2.5/0.5mg 3 Ml Ampul.Neb INHALE QID PRN shortness of breath Dexamethasone Sodium Phosphate 6 mg 09/04/20 12:30 09/04/20 13:45 Dexamethasone Sod Phosphate 4 Mg/Ml Vial IVPUSH 6 mg DAILY ELISEO Administration Enoxaparin Sodium 40 mg 09/02/20 20:00 09/04/20 21:21 Enoxaparin Sodium 40 Mg/0.4 Ml Syringe SUBCUT 40 mg Q24H ELISEO Administration Fluoxetine HCl 40 mg 09/04/20 09:00 09/04/20 08:58 Fluoxetine Hcl 20 Mg Capsule PO 40 mg DAILY ELISEO Administration Gabapentin 400 mg 09/03/20 21:00 09/04/20 21:29 Gabapentin 400 Mg Capsule PO 400 mg TID ELISEO Administration Doxycycline Hyclate 100 mg/ 250 mls @ 166.67 mls/hr 09/02/20 21:00 09/04/20 10:33 Sodium Chloride IV Infused BID ELISEO Infusion Cefepime HCl 2 gm/ Sodium 50 mls @ 100 mls/hr 09/03/20 12:30 09/04/20 22:00 Chloride IV Infused Q8H ELISEO Infusion Furosemide 500 mg/ IV 50 mls @ 0.5 mls/hr 09/04/20 12:45 09/04/20 15:34 Miscellaneous Supplies IVCONT 5 mg/hr .Q24H ELISEO 0.5 mls/hr Administration 5 MG/HR Metoprolol Tartrate 12.5 mg 09/02/20 21:00 09/04/20 21:28 Metoprolol Tartrate 12.5 Mg Halftab PO 12.5 mg BID ELISEO Administration Protocol Mirtazapine 7.5 mg 09/02/20 21:00 09/04/20 21:29 Mirtazapine 7.5 Mg Tablet PO 7.5 mg BEDTIME ELISEO Administration Omeprazole 40 mg 09/04/20 06:30 09/04/20 05:12 Omeprazole 40 Mg Capsule.Dr PO Not Given DAILY@0630 ELISEO Ondansetron HCl 4 mg 09/02/20 16:54 Ondansetron Hcl 4 Mg/2 Ml Vial IVPUSH Q8H PRN Nausea Pharmacy Consult 1 each 09/02/20 16:54 Consult Rx Perform Med Rec MISCELLANE ONCE PRN Consult order Quetiapine Fumarate 50 mg 09/03/20 16:49 09/04/20 21:47 Quetiapine Fumarate 50 Mg Tablet PO 50 mg DAILY PRN Administration agitation Tizanidine HCl 4 mg 09/03/20 16:55 Tizanidine Hcl 4 Mg Tablet PO Q8H PRN muscle spasticity Home Medications Medication Instructions Recorded Confirmed Last Taken Type adqvlqhoayzu-idsp-zvxat acid 1 tab PO DAILY 06/29/20 09/02/20 Unknown History [Certavite-Antioxidant] buprenorphine-naloxone [Suboxone] film SUBLINGUAL DAILY 09/02/20 Unknown History Physical Exam Vital Signs: Vital Signs: Last Vital Signs Temp 98.4 F 09/04/20 19:35 Pulse 79 09/04/20 21:28 Resp 20 09/04/20 19:42 BP 107/70 09/04/20 21:28 Pulse Ox 93 09/04/20 19:35 Body Mass Index 29.8 Const: General: cooperative HENMT: Head: Yes normal to inspection Resp: Effort & Inspection: normal respiratory effort Cardio: Rate: regular rate Rhythm: regular rhythm GI: Palpation (GI): Soft to palpation and nontender Results Labs CBC & Chem 7: 09/19/20 05:57 09/19/20 05:57 Labs: Short CBC 04/10/21 04/10/21 Range/Units 06:33 12:33 WBC 20.8 H 22.2 H (4.8-10.8) X10*3/uL Hgb 11.0 L 12.1 L (14.0-18.0) g/dl Hct 33.0 L 37.0 L (42-52) % Plt Count 102 L 108 L (160-400) X10*3/uL BMP 09/04/20 06:33 Sodium 141 Potassium 4.2 Chloride 105 Carbon Dioxide 29 BUN 45 H Creatinine 0.82 Calcium 8.0 L Cardiac Enzymes 09/04/20 Range/Units 12:33 Total Creatine Kinase 31 L (38-174) U/L Liver Function 09/04/20 Range/Units 06:33 Total Bilirubin 2.0 H (0.0-1.0) mg/dL Direct Bilirubin 1.5 H (0.0-0.5) mg/dL AST 42 H (5-37) U/L ALT 19 (0-40) U/L Alkaline Phosphatase 129 H (39-117) U/L Albumin 2.4 L (3.5-5.0) g/dL Microbiology Microbiology Results: Microbiology 09/02/20 12:30 Blood - Venous Blood Culture - Preliminary No growth after 48 hours. 09/02/20 12:10 Blood - Venous Blood Culture - Preliminary No growth after 48 hours. Assessment and Plan (1) Acute respiratory failure with hypoxia: Status: Acute Would continue current antibiotics Await any cultures Possibly 3-5 days IV and then po Doxycycline for 7 days (2) Substance abuse: Status: Acute
[2020-09-05] VITALS (13 sets, daily range): BP systolic 101–153; BP diastolic 57–65; PULSE 68–88; RESP 18–24; TEMP 36–37.1; O2SAT 88–98
[2020-09-05] MEDS: cefEPime HCl 2 GM in 0.9 % Sodium Chloride 50 ML IV ×3 (03:40→20:38)
[2020-09-05 06:47] LABS: MANUAL DIFF FLAG NO
[2020-09-05] MEDS: Omeprazole 40 MG CAPSULE.DR PO (06:51)
[2020-09-05 07:30] LABS: Anion Gap 15 (12-20); Basophils Percent Auto 0.1 % (0-2); Blood Urea Nitrogen 34 mg/dL (9-16); C Reactive Protein 5.92 mg/dL (< or = 0.50); Carbon Dioxide 32 mmol/L (22-29); Chloride 100 mmol/L (96-108); Creatinine Clr Calc Pharmacy 111.6; Estimated Glomerular Filt Rate > 60; Glucose Random 167 mg/dL (60-115); Hematocrit 35.2 % (42-52); Hemoglobin 11.6 g/dl (14.0-18.0); Imm Gran Pct Auto 1.4 % (0.0-0.4); Lactate Dehydrogenase 664 U/L (118-273); Lymphocytes Percent Auto 4.5 % (20-40); Magnesium 1.7 mg/dL (1.6-2.6); Mean Corpuscular Hemoglobin 30.9 pg (27.0-33.0); Mean Corpuscular Volume 93.9 fL (80-98); Monocytes Absolute Auto 0.8 X10*3/uL (0.1-1.2); Neutrophils Absolute Auto 19.1 X10*3/uL (2.0-8.3); Platelet Count 104 X10*3/uL (160-400); Potassium 3.9 mmol/L (3.3-5.1); Red Blood Count 3.75 X10*6/uL (4.60-5.80); Red Cell Distribution Width 22.5 % (11.0-16.0); Sodium 143 mmol/L (135-145); White Blood Count 21.2 X10*3/uL (4.8-10.8)
[2020-09-05 07:33] LABS: NRBC Pct Auto 2.8 /100WBC (0.0-0.2)
[2020-09-05 07:35] LABS: Procalcitonin 0.15 ng/mL
[2020-09-05 07:37] LABS: D Dimer 48680 NG/ML
[2020-09-05 07:40] LABS: Phosphorus 1.1 mg/dL (2.7-4.5)
[2020-09-05] MEDS: dexAMETHasone sod phosphate 4 MG/ML VIAL 6 MG IVPUSH (08:52)
[2020-09-05] MEDS: Metoprolol Tartrate 12.5 MG HALFTAB PO ×2 (08:52→20:35)
[2020-09-05] MEDS: FLUoxetine HCl 20 MG CAPSULE 40 MG PO (08:52)
[2020-09-05] MEDS: Gabapentin 400 MG CAPSULE PO ×3 (08:52→20:35)
[2020-09-05] MEDS: Doxycycline Hyclate 100 MG in 0.9 % Sodium Chloride 250 ML 166.67 MG IV ×2 (08:52→20:36)
[2020-09-05] MEDS: Furosemide 500 MG in Container,Empty 0 ML IVCONT (14:05)
[2020-09-05] MEDS: Sodium,Potassium Phosphates POWD.PACK 1 PACKET PO (14:05)
[2020-09-05] MEDS: Potassium Phosphate 30 MMOL in 0.9 % Sodium Chloride 500 ML 85 MMOL IV (14:05)
[2020-09-05] MEDS: TiZANidine HCL 4 MG TABLET PO ×2 (14:47→22:50)
--- NOTE | 2020-09-05 15:45 | P.PNIM_ITS ---
Subjective Subjective Date of Service: 09/05/20 Interval History: Patient sleeping most of the day, but wake up for meals, offers no acute complaints, denies shortness of breath, currently on high-flow oxygen 50 L, no acute overnight issues. 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 CVS no chest pain, no palpitation. Respiratory no sob Gastrointestinal no nausea, no vomiting, no abdominal pain Physical Exam Vital Signs: Vital Signs: Last Vital Signs Temp 97.1 F 09/05/20 15:14 Pulse 73 09/05/20 15:14 Resp 20 09/05/20 15:14 BP 101/64 09/05/20 15:14 Pulse Ox 92 09/05/20 15:14 Body Mass Index 29.8 General resting comfortably no acute distress Neck is supple no JVD. CVS regular rate rhythm, Respiratory lungs clear to auscultation, no respiratory distress, no wheeze, no rhonchi, no use of accessory muscles. Gastrointestinal abdomen soft, nontender, bowel sounds audible,no guarding , no rigidity. Extremities bilateral edema improved Neuro nonfocal code moving all 4 extremity, speech clear. Skin no rash External catheter with clear urine Objective Data Current Medications Generic Name Dose Route Start Last Admin Trade Name Freq PRN Reason Stop Dose Admin Albuterol/Ipratropium 3 ml 09/02/20 16:56 Albuterol/Iprat 2.5/0.5mg 3 Ml Ampul.Neb INHALE QID PRN shortness of breath Dexamethasone Sodium Phosphate 6 mg 09/04/20 12:30 09/05/20 08:52 Dexamethasone Sod Phosphate 4 Mg/Ml Vial IVPUSH 6 mg DAILY ELISEO Administration Enoxaparin Sodium 40 mg 09/02/20 20:00 09/04/20 21:21 Enoxaparin Sodium 40 Mg/0.4 Ml Syringe SUBCUT 40 mg Q24H ELISEO Administration Fluoxetine HCl 40 mg 09/04/20 09:00 09/05/20 08:52 Fluoxetine Hcl 20 Mg Capsule PO 40 mg DAILY ELISEO Administration Gabapentin 400 mg 09/03/20 21:00 09/05/20 14:05 Gabapentin 400 Mg Capsule PO 400 mg TID ELISEO Administration Doxycycline Hyclate 100 mg/ 250 mls @ 166.67 mls/hr 09/02/20 21:00 09/05/20 10:54 Sodium Chloride IV Infused BID ELISEO Infusion Cefepime HCl 2 gm/ Sodium 50 mls @ 100 mls/hr 09/03/20 12:30 09/05/20 14:15 Chloride IV Infused Q8H ELISEO Infusion Furosemide 500 mg/ IV 50 mls @ 0.5 mls/hr 09/04/20 12:45 09/05/20 14:05 Miscellaneous Supplies IVCONT 5 mg/hr .Q24H ELISEO 0.5 mls/hr Administration 5 MG/HR Potassium Phosphate 30 mmol/ 510 mls @ 85 mls/hr 09/05/20 11:08 09/05/20 14:05 Sodium Chloride IV 09/05/20 17:07 85 mls/hr ONCE ONE Administration Magnesium Oxide 400 mg 09/05/20 17:30 Magnesium Oxide 400 Mg Tablet PO BIDPC ELISEO Metoprolol Tartrate 12.5 mg 09/02/20 21:00 09/05/20 08:52 Metoprolol Tartrate 12.5 Mg Halftab PO 12.5 mg BID ELISEO Administration Protocol Mirtazapine 7.5 mg 09/02/20 21:00 09/04/20 21:29 Mirtazapine 7.5 Mg Tablet PO 7.5 mg BEDTIME ELISEO Administration Omeprazole 40 mg 09/04/20 06:30 09/05/20 06:51 Omeprazole 40 Mg Capsule.Dr PO 40 mg DAILY@0630 ELISEO Administration Ondansetron HCl 4 mg 09/02/20 16:54 Ondansetron Hcl 4 Mg/2 Ml Vial IVPUSH Q8H PRN Nausea Pharmacy Consult 1 each 09/02/20 16:54 Consult Rx Perform Med Rec MISCELLANE ONCE PRN Consult order Potassium Phos/Sodium Phos 1 packet 09/05/20 15:00 09/05/20 14:05 Sodium,Potassium Phosphates Powd.Pack PO 1 packet TID ELISEO Administration Quetiapine Fumarate 50 mg 09/03/20 16:49 09/04/20 21:47 Quetiapine Fumarate 50 Mg Tablet PO 50 mg DAILY PRN Administration agitation Tizanidine HCl 4 mg 09/03/20 16:55 09/05/20 14:47 Tizanidine Hcl 4 Mg Tablet PO 4 mg Q8H PRN Administration muscle spasticity Labs CBC & Chem 7: 09/05/20 06:15 09/05/20 06:15 Microbiology Microbiology Results: Microbiology 09/02/20 12:30 Blood - Venous Blood Culture - Preliminary No growth after 48 hours. 09/02/20 12:10 Blood - Venous Blood Culture - Preliminary No growth after 48 hours. Assessment and Plan (1) Acute respiratory failure with hypoxia: Problem details: there is concern over pneumonia There is no COVID seen Also atypical organisms could be concern as well as opioid use disorder and drug damage to lung Status: Acute (2) Acute diastolic heart failure: Status: Acute (3) Pneumonia: Status: Acute (4) Opioid use disorder, moderate, in controlled environment: Status: Acute (5) Elevated troponin: Status: Acute (6) Bilateral edema of lower extremity: Status: Acute (7) PTSD (post-traumatic stress disorder): Problem details: hx of childhood trauma, trauma and trauma while incarcerated. Status: Acute (8) Depression: Problem details: 59 yo male, homeless with SI, plan, intent to shoot himself. UTox + opiates with hx of OUD. 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 Hx of admissions to [facility] with precipitous discharges via TDN and refusal of resources, placement upon discharge. Status: Acute (9) HTN (hypertension): Status: Acute Assessment and Plan: 60-year-old gentleman with known history of cirrhosis related to hepatitis C, history of peripheral neuropathy and diet-controlled diabetes, who presented to [facility] due to worsening bilateral lower extremity edema,shortness of breath and chest pain with exertion, relieved with rest. The patient's workup is concerning for pneumonia, question congestive heart failure versus generalized anasarca due to underlying cirrhosis/elevated troponin concerning for acute coronary syndrome with abnormal EKG. Acute respiratory failure with hypoxia due to pneumonia and acute diastolic heart failure Patient appears comfortable this morning no respiratory distress continue high-flow oxygen and gradually wean O2 -2 L negative since yesterday Generalized swelling seems multifactorial with chf/cirrhosis/ hypoalbuminemia echocardiogram showed stable EF 55-60% no evidence of regional wall motion abnormality there is evidence of mild diastolic dysfunction. Normal ammonia level CT chest on admission suggestive of diffuse ground-glass opacities bilaterally related to infectious or inflammatory process there was no evidence of acute PE, COVID test negative Influenza A/B and RSV negative VBG showed chronic CO2 retention with compensation Due to high suspicion for COVID on CT chest repeat COVID test was obtained that came back neg. Continue IV Lasix drip 5 milligram/hour, follow I's and os, and renal function while being diuresed Hypophosphatemia likely due to GI loss and decreased by mouth intake will aggressively replace with IV phosphorus and by mouth Neutra-Phos and follow labs at a.m. Sepsis with pneumonia. No fevers, tachycardia resolved worsening leukocytosis likely due to steroids,continue IV cefepime and, doxycycline day 4, blood cultures x2 neg. Continue current treatment. Patient seen by ID she recommend 3-5 days of IV and outpatient doxycycline for 7 days to cover atypical pathogen Elevated troponin with chest pain. Troponin remains flat no further bout of chest pain continue aspirin and beta-gina Elevated bilirubin, both direct and indirect and elevated AST. h/o hep C, LFTs are trending down , no abdominal pain, no nausea, vomiting tolerating diet, follow LFTs hold on further workup History of anxiety and depression. On home medications Seroquel, and trazodone , Ativan held due to somnolence. Opiate use disorder patient actively using heroin seen by Yana [place] she recommend to use Suboxone. Has not use Suboxone in last several days at home, patient at present does not appear to have withdrawal symptoms, hold Suboxone. Deep vein thrombosis prophylaxis. on Lovenox/inr 1.7.
[2020-09-05] MEDS: Magnesium Oxide 400 MG TABLET PO (16:33)
[2020-09-05] MEDS: Enoxaparin Sodium 40 MG/0.4 ML SYRINGE SUBCUT (20:35)
[2020-09-05] MEDS: QUEtiapine Fumarate 50 MG TABLET PO (20:35)
[2020-09-05] MEDS: Mirtazapine 7.5 MG TABLET PO (20:35)
[2020-09-06] VITALS (15 sets, daily range): BP systolic 94–125; BP diastolic 53–76; PULSE 57–86; RESP 18–20; TEMP 36.1–37.3; O2SAT 88–97; BMI 29.8
[2020-09-06] MEDS: QUEtiapine Fumarate 25 MG TABLET PO (03:40)
[2020-09-06] MEDS: cefEPime HCl 2 GM in 0.9 % Sodium Chloride 50 ML IV ×3 (03:47→21:01)
--- NOTE | 2020-09-06 06:37 | PC.NURSE ---
P: Pt's BP 94/53. VSS otherwise, pt asymptomatic. Pt also asking for additional dose of Seroquel due to insomnia I: notified. MD came up to see pt. Pt requesting additional dose of Zanaflex for leg muscle spasms. Not ordered due to concern of increased hypotension and oversedation risk. Additional Seroquel dose ordered. E: Will continue to monitor BP. Pt sleeping now.
[2020-09-06 07:09] LABS: Alanine Aminotransferase 13 U/L (0-40); Albumin Level 1.9 g/dL (3.5-5.0); Alkaline Phosphatase 149 U/L (39-117); Anion Gap 11 (12-20); Aspartate Amino Transferase 27 U/L (5-37); Bilirubin Direct 0.7 mg/dL (0.0-0.5); Bilirubin Total 0.9 mg/dL (0.0-1.0); Blood Urea Nitrogen 30 mg/dL (9-16); Calcium 7.3 mg/dL (8.4-10.2); Carbon Dioxide 31 mmol/L (22-29); Chloride 101 mmol/L (96-108); Creatinine Clr Calc Pharmacy 124.8; Estimated Glomerular Filt Rate > 60; Glucose Random 173 mg/dL (60-115); Phosphorus 1.3 mg/dL (2.7-4.5); Potassium 3.4 mmol/L (3.3-5.1); Sodium 140 mmol/L (135-145); Total Protein 5.2 g/dL (6.5-8.0)
[2020-09-06 07:14] LABS: B Type Natriuretic Peptide 116 pg/mL (<100)
[2020-09-06] MEDS: Magnesium Oxide 400 MG TABLET PO ×2 (09:56→17:54)
[2020-09-06] MEDS: Gabapentin 400 MG CAPSULE PO ×3 (09:56→21:02)
[2020-09-06] MEDS: Sodium,Potassium Phosphates POWD.PACK 1 PACKET PO ×2 (09:57→15:45)
[2020-09-06] MEDS: FLUoxetine HCl 20 MG CAPSULE 40 MG PO (09:57)
[2020-09-06] MEDS: dexAMETHasone sod phosphate 4 MG/ML VIAL 6 MG IVPUSH (09:58)
[2020-09-06] MEDS: Doxycycline Hyclate 100 MG in 0.9 % Sodium Chloride 250 ML 166.67 MG IV ×2 (10:01→21:51)
[2020-09-06] MEDS: TiZANidine HCL 4 MG TABLET PO ×2 (10:11→18:00)
--- NOTE | 2020-09-06 10:21 | P.PNCA_ITS ---
Subjective Subjective Date of Service: 09/06/20 Interval history: He denies any specific complaints. Remains on supplemental oxygen. Review of Systems Review of Systems Yes all other systems are reviewed and are negative Cardiovascular: Reports as per HPI, Reports no additional cardiovascular complaints, Denies acrocyanosis, Denies cool extremities, Denies painful fingertips, Denies chest pain, Denies chest pain at rest, Denies diaphoresis, Denies syncope, Denies irregular heart rhythm, Denies claudication, Reports leg edema, Denies lightheadedness, Denies palpitations and Reports dyspnea Respiratory: Reports dyspnea Denies syncope Endocrine: Denies palpitations Physical Exam Vital Signs: Last Vital Signs Temp 98.5 F 09/06/20 07:26 Pulse 60 09/06/20 10:02 Resp 20 09/06/20 08:22 BP 101/56 L 09/06/20 10:02 Pulse Ox 92 09/06/20 07:26 Body Mass Index 29.8 Const General: cooperative, comfortable and no acute distress Orientation/consciousness: patient oriented x3 HENHI Other: Unremarkable Neck Neck: Yes normal visual inspection Chest Chest palpation & inspection: normal inspection of the chest Resp Auscultation: crackles and no wheezes Cardio Jugular venous distension: no JVD Palpation: normal PMI Heart sounds: S1 normal heart sound present, S2 normal heart sound present, no gallops, no murmurs and no rubs GI Palpation (GI): Soft to palpation Back/Spine/Pelvis Other: unremarkable Skin General skin exam: no rashes or lesions noted Neuro General: patient oriented x3 Extrem General: Yes edema (1+) Psych Mental Status: mental status grossly normal Results Labs and Meds Result diagrams: 09/05/20 06:15 09/06/20 05:35 Lab results: Laboratory Results - last 24 hr 09/06/20 09/06/20 05:35 05:35 Sodium 140 Potassium 3.4 Chloride 101 Carbon Dioxide 31 H Anion Gap 11 L BUN 30 H Creatinine 0.76 Estim Creat Clear Calc 124.8 Estimated GFR > 60 Random Glucose 173 H Calcium 7.3 L D Phosphorus 1.3 L Total Bilirubin 0.9 Direct Bilirubin 0.7 H AST 27 ALT 13 Alkaline Phosphatase 149 H B-Natriuretic Peptide 116 H Total Protein 5.2 L Albumin 1.9 L D Progress Note: A&P Assessment and plan (1) Acute on chronic right heart failure: Status: Acute (2) Non-rheumatic tricuspid valve insufficiency: Status: Acute (3) Pulmonary hypertension: Status: Acute (4) Elevated troponin: Status: Acute (5) Anasarca: Status: Acute (6) Substance abuse: Status: Acute Assessment and Plan: Echocardiogram reviewed. Left heart function seems preserved with only mild diastolic dysfunction. Right ventricle is mildly dilated with moderate tricuspid regurgitation with mild pulmonary hypertension. There is also IVC dilatation with diminished respiratory variation. Cardiac BNP initially elevated to 1389---> 116. High sensitivity troponins 58 followed by 58. In April 2020, it was 4. CT chest from yesterday shows severe pulmonary opacities, airspace disease, pulmonary edema-either cardiogenic versus noncardiogenic. His anasarca itself is likely multifactorial from a combination of chronic liver disease, cirrhosis, low albumin and possibly components of right heart failure. He may have noncardiogenic pulmonary edema related to heroin use. He has been using bags of heroin for the last 3 weeks. For now, we can do empiric diuresis. He might have underlying CAD but considering the overall clinical picture, not a good candidate for ischemia workup. Guarded prognosis. Fall Risk Details Current Medications: Current Medications Generic Name Dose Route Start Last Admin Trade Name Freq PRN Reason Stop Dose Admin Albuterol/Ipratropium 3 ml 09/02/20 16:56 Albuterol/Iprat 2.5/0.5mg 3 Ml Ampul.Neb INHALE QID PRN shortness of breath Dexamethasone Sodium Phosphate 6 mg 09/04/20 12:30 09/06/20 09:58 Dexamethasone Sod Phosphate 4 Mg/Ml Vial IVPUSH 6 mg DAILY ELISEO Administration Enoxaparin Sodium 40 mg 09/02/20 20:00 09/05/20 20:35 Enoxaparin Sodium 40 Mg/0.4 Ml Syringe SUBCUT 40 mg Q24H ELISEO Administration Fluoxetine HCl 40 mg 09/04/20 09:00 09/06/20 09:57 Fluoxetine Hcl 20 Mg Capsule PO 40 mg DAILY ELISEO Administration Furosemide 40 mg 09/06/20 18:00 Furosemide 40 Mg/4 Ml Vial IVPUSH BID@0900,1800 [facility] Protocol Gabapentin 400 mg 09/03/20 21:00 09/06/20 09:56 Gabapentin 400 Mg Capsule PO 400 mg TID ELISEO Administration Doxycycline Hyclate 100 mg/ 250 mls @ 166.67 mls/hr 09/02/20 21:00 09/06/20 10:01 Sodium Chloride IV 166.67 mls/hr BID ELISEO Administration Cefepime HCl 2 gm/ Sodium 50 mls @ 100 mls/hr 09/03/20 12:30 09/06/20 04:53 Chloride IV Infused Q8H ELISEO Infusion Magnesium Oxide 400 mg 09/05/20 17:30 09/06/20 09:56 Magnesium Oxide 400 Mg Tablet PO 400 mg BIDPC ELISEO Administration Metoprolol Tartrate 12.5 mg 09/02/20 21:00 09/06/20 10:02 Metoprolol Tartrate 12.5 Mg Halftab PO Not Given BID [facility] Protocol Mirtazapine 7.5 mg 09/02/20 21:00 09/05/20 20:35 Mirtazapine 7.5 Mg Tablet PO 7.5 mg BEDTIME ELISEO Administration Omeprazole 40 mg 09/04/20 06:30 09/06/20 06:31 Omeprazole 40 Mg Capsule.Dr PO Not Given DAILY@0630 [facility] Ondansetron HCl 4 mg 09/02/20 16:54 Ondansetron Hcl 4 Mg/2 Ml Vial IVPUSH Q8H PRN Nausea Pharmacy Consult 1 each 09/02/20 16:54 Consult Rx Perform Med Rec MISCELLANE ONCE PRN Consult order Potassium Phos/Sodium Phos 1 packet 09/05/20 15:00 09/06/20 09:57 Sodium,Potassium Phosphates Powd.Pack PO 1 packet TID ELISEO Administration Quetiapine Fumarate 50 mg 09/03/20 16:49 09/05/20 20:35 Quetiapine Fumarate 50 Mg Tablet PO 50 mg DAILY PRN Administration agitation Tizanidine HCl 4 mg 09/03/20 16:55 09/06/20 10:11 Tizanidine Hcl 4 Mg Tablet PO 4 mg Q8H PRN Administration muscle spasticity Time Spent With Patient Time: Total time spent is greater than 50% in coordination of care (as documented) at patient's floor/unit and/or counseling patient: Time with patient: less than 15 minutes
--- NOTE | 2020-09-06 11:01 | HO.PM.IMPN ---
Subjective Subjective Date of Service: 09/06/20 Interval History: Patient awake denies shortness of breath, complaining of lower extremity pain, requesting to be placed on all his home medication. 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 CVS no chest pain, no palpitation. Respiratory no sob Gastrointestinal no nausea, no vomiting, no abdominal pain Physical Exam Vital Signs: Vital Signs: Last Vital Signs Temp 98.5 F 09/06/20 07:26 Pulse 60 09/06/20 10:02 Resp 20 09/06/20 08:22 BP 101/56 L 09/06/20 10:02 Pulse Ox 92 09/06/20 07:26 Body Mass Index 29.8 General resting comfortably no acute distress, awake alert more appropriate this a.m. Neck is supple no JVD. CVS regular rate rhythm, Respiratory lungs clear to auscultation, no respiratory distress, no wheeze, no rhonchi, no use of accessory muscles. Gastrointestinal abdomen soft, nontender, bowel sounds audible,no guarding , no rigidity. Extremities significant improvement in bilateral edema Neuro nonfocal , speech clear. Skin no rash External catheter with clear urine Objective Data Current Medications Generic Name Dose Route Start Last Admin Trade Name Freq PRN Reason Stop Dose Admin Albuterol/Ipratropium 3 ml 09/02/20 16:56 Albuterol/Iprat 2.5/0.5mg 3 Ml Ampul.Neb INHALE QID PRN shortness of breath Dexamethasone Sodium Phosphate 6 mg 09/04/20 12:30 09/06/20 09:58 Dexamethasone Sod Phosphate 4 Mg/Ml Vial IVPUSH 6 mg DAILY ELISEO Administration Enoxaparin Sodium 40 mg 09/02/20 20:00 09/05/20 20:35 Enoxaparin Sodium 40 Mg/0.4 Ml Syringe SUBCUT 40 mg Q24H ELISEO Administration Fluoxetine HCl 40 mg 09/04/20 09:00 09/06/20 09:57 Fluoxetine Hcl 20 Mg Capsule PO 40 mg DAILY ELISEO Administration Furosemide 40 mg 09/06/20 18:00 Furosemide 40 Mg/4 Ml Vial IVPUSH BID@0900,1800 ELISEO Protocol Gabapentin 400 mg 09/03/20 21:00 09/06/20 09:56 Gabapentin 400 Mg Capsule PO 400 mg TID ELISEO Administration Doxycycline Hyclate 100 mg/ 250 mls @ 166.67 mls/hr 09/02/20 21:00 09/06/20 10:01 Sodium Chloride IV 166.67 mls/hr BID [facility] Administration Cefepime HCl 2 gm/ Sodium 50 mls @ 100 mls/hr 09/03/20 12:30 09/06/20 04:53 Chloride IV Infused Q8H ELISEO Infusion Magnesium Oxide 400 mg 09/05/20 17:30 09/06/20 09:56 Magnesium Oxide 400 Mg Tablet PO 400 mg BIDPC ELISEO Administration Metoprolol Tartrate 12.5 mg 09/02/20 21:00 09/06/20 10:02 Metoprolol Tartrate 12.5 Mg Halftab PO Not Given BID [facility] Protocol Mirtazapine 7.5 mg 09/02/20 21:00 09/05/20 20:35 Mirtazapine 7.5 Mg Tablet PO 7.5 mg BEDTIME ELISEO Administration Omeprazole 40 mg 09/04/20 06:30 09/06/20 06:31 Omeprazole 40 Mg Capsule.Dr PO Not Given DAILY@0630 [facility] Ondansetron HCl 4 mg 09/02/20 16:54 Ondansetron Hcl 4 Mg/2 Ml Vial IVPUSH Q8H PRN Nausea Pharmacy Consult 1 each 09/02/20 16:54 Consult Rx Perform Med Rec MISCELLANE ONCE PRN Consult order Potassium Phos/Sodium Phos 1 packet 09/05/20 15:00 09/06/20 09:57 Sodium,Potassium Phosphates Powd.Pack PO 1 packet TID ELISEO Administration Quetiapine Fumarate 50 mg 09/03/20 16:49 09/05/20 20:35 Quetiapine Fumarate 50 Mg Tablet PO 50 mg DAILY PRN Administration agitation Tizanidine HCl 4 mg 09/03/20 16:55 09/06/20 10:11 Tizanidine Hcl 4 Mg Tablet PO 4 mg Q8H PRN Administration muscle spasticity Labs CBC & Chem 7: 09/05/20 06:15 09/06/20 05:35 Microbiology Microbiology Results: Microbiology 09/02/20 12:30 Blood - Venous Blood Culture - Preliminary No growth after 48 hours. 09/02/20 12:10 Blood - Venous Blood Culture - Preliminary No growth after 48 hours. Assessment and Plan (1) Acute respiratory failure with hypoxia: Problem details: there is concern over pneumonia There is no COVID seen Also atypical organisms could be concern as well as opioid use disorder and drug damage to lung Status: Acute (2) Acute on chronic right heart failure: Status: Acute (3) Pneumonia: Status: Acute (4) Pulmonary hypertension: Status: Acute (5) Non-rheumatic tricuspid valve insufficiency: Status: Acute (6) Substance abuse: Status: Acute Assessment and Plan: 60-year-old gentleman with known history of cirrhosis related to hepatitis C, history of peripheral neuropathy and diet-controlled diabetes, who presented to [facility] due to worsening bilateral lower extremity edema,shortness of breath and chest pain with exertion, relieved with rest. The patient's workup is concerning for pneumonia, question congestive heart failure versus generalized anasarca due to underlying cirrhosis/elevated troponin concerning for acute coronary syndrome with abnormal EKG. Acute respiratory failure with hypoxia due to pneumonia and acute diastolic heart failure no respiratory distress, appears comfort, wean high-flow oxygen , John catheter with clear urine,negative fluid balance in last 3 days swelling improving was likely multifactorial with chf/cirrhosis/ hypoalbuminemia echocardiogram showed stable EF 55-60% no evidence of regional wall motion abnormality there is evidence of mild diastolic dysfunction. Normal ammonia level CT chest on admission suggestive of diffuse ground-glass opacities bilaterally related to infectious or inflammatory process there was no evidence of acute PE, COVID test negative x3 Influenza A/B and RSV negative VBG showed chronic CO2 retention with compensation Will discontinue IV Lasix drip and place patient on IV Lasix 40 b.i.d., renal function remains stable, will DC IV dexamethasone since no COVID Will resume home medication Lasix 40 mg and Aldactone upon discharge Hypoalbuminemia added protein shakes and obtain nutrition consult Hypophosphatemia likely due to GI loss and decreased by mouth intake, status post IV phosphorus and on by mouth Neutra-Phos , phosphorus improved from 1.1-1.3 Will repeat IV phos and continue Neutra-Phos , follow labs at a.m. Sepsis with pneumonia. No fevers, tachycardia resolved worsening leukocytosis likely due to steroids,continue IV cefepime and, doxycycline day 5 and repeat chest x-ray today, blood cultures x2 neg. Continue current treatment. Patient seen by ID she recommend 3-5 days of IV and outpatient doxycycline for 7 days to cover atypical pathogen Elevated troponin with chest pain. Troponin remains flat no further bout of chest pain continue aspirin and beta-gina Elevated bilirubin, both direct and indirect and elevated AST. h/o hep C, LFTs are trending down , no abdominal pain, no nausea, vomiting tolerating diet, follow LFTs hold on further workup History of anxiety and depression. On home medications Seroquel, and trazodone , Ativan held due to somnolence. Will resume once more awake and alert. Requested pharmacy to review patient's home medication. Opiate use disorder patient actively using heroin was on Suboxone at home, seen by Yana South she recommend to use Suboxone. Has not use Suboxone in last several days at home, patient at present does not appear to have withdrawal symptoms, hold Suboxone. Deep vein thrombosis prophylaxis. on Lovenox/inr 1.7.
--- NOTE | 2020-09-06 11:16 | MHC.CM.PN ---
DC plan is TBD at this time (homeless, Heroin, SI, IV Lasix, IV Decadron, IV CEFEPIME, IV DOXYCYCLINE, High Flow O2 @ 50L). CM will follow; Care Team is involved.
--- NOTE | 2020-09-06 12:38 | MHC.CLN ---
RE: CONSULT PT IS CONSUMING 75% AVG DIET RX: 2GM NA-PT MAY BENEFIT FROM LIBERALIZED DIET R/T LOW ALBUMIN PT RECEIVING ENSURE TID AND KIMBERLY PROVIDING 1210KCALS, 65G PROTEIN NOTED NH3 40 WNL -MONITOR CLOSELY INCREASED PO PROTEIN CAN AFFECT AMMONIA LEVELS MONITOR BS SEE ALSO CLINICAL NUTRITION ASSESSMENT
[2020-09-06] MEDS: Potassium Phosphate 30 MMOL in 0.9 % Sodium Chloride 500 ML 85 MMOL IV (12:56)
--- NOTE | 2020-09-06 17:19 | MHC.RECOVSUP ---
Recovery Support Note: This engineering technical writer transported patient's belongings from [facility] to [facility] where he currently resides. Patient confirmed that they were his belongings and reports nothing is missing. This engineering technical writer counted out patient's money in front of him and patient confirmed that it was all he had - 321 dollars in total (15 twenties, 1 ten, two 5's and 1 one.) In addition a few dollars in change. This engineering technical writer offered to store patient's money in the security safe and patient declined at this time, stating that he will hold onto his belongings and keep them in his room. This engineering technical writer informed patient's RN that he is in possession of his belongings. Patient reports he is grateful to be here, stating I could have . Discussed early recovery and relapse prevention with patient. Patient reports he will be maintaining sobriety when he discharges and that his goal is to work with community supports to secure housing. Reminded patient of the [facility] and encouraged he reaches out to them for support. Patient reports he does not know where he will go after discharge and he will likely go back to the alf he was previously at. Patient expressed interest in meeting with Commercial Mortgage Broker Julio. This engineering technical writer will facilitate the referral to Julio.
[2020-09-06] MEDS: Furosemide 40 MG/4 ML VIAL IVPUSH (17:54)
[2020-09-06] MEDS: Mirtazapine 7.5 MG TABLET PO (21:02)
[2020-09-06] MEDS: QUEtiapine Fumarate 50 MG TABLET PO (21:16)
[2020-09-07] VITALS (14 sets, daily range): BP systolic 104–127; BP diastolic 58–73; PULSE 57–72; RESP 15–29; TEMP 35.5–36.6; O2SAT 83–96
[2020-09-07] MEDS: TiZANidine HCL 4 MG TABLET PO ×3 (00:35→18:32)
[2020-09-07] MEDS: cefEPime HCl 2 GM in 0.9 % Sodium Chloride 50 ML IV ×3 (04:56→20:57)
[2020-09-07 06:48] LABS: Basophils Percent Auto 0.1 % (0-2); Eosinophils Percent Auto 0.1 % (0-4); Hemoglobin 11.7 g/dl (14.0-18.0); NRBC Pct Auto 0.6 /100WBC (0.0-0.2); Neutrophils Percent Auto 82.8 % (45-73)
[2020-09-07 06:50] LABS: Hematocrit 34.6 % (42-52); Imm Gran Abs Auto 0.33 X10*3/uL (0.00-0.03); Imm Gran Pct Auto 1.6 % (0.0-0.4); Lymphocytes Absolute Auto 1.6 X10*3/uL (1.2-4.9); Mean Corpuscular HGB Conc 33.8 g/dl (31.0-36.0); Mean Corpuscular Hemoglobin 30.5 pg (27.0-33.0); Mean Corpuscular Volume 90.3 fL (80-98); Monocytes Absolute Auto 1.5 X10*3/uL (0.1-1.2); Monocytes Percent Auto 7.4 % (2-11); Neutrophils Absolute Auto 16.8 X10*3/uL (2.0-8.3); Platelet Count 116 X10*3/uL (160-400); Red Blood Count 3.83 X10*6/uL (4.60-5.80); Red Cell Distribution Width 22.1 % (11.0-16.0); White Blood Count 20.3 X10*3/uL (4.8-10.8)
[2020-09-07 07:01] LABS: Anion Gap 10 (12-20); Blood Urea Nitrogen 33 mg/dL (9-16); Calcium 7.3 mg/dL (8.4-10.2); Carbon Dioxide 32 mmol/L (22-29); Chloride 100 mmol/L (96-108); Creatinine Clr Calc Pharmacy 139.5; Estimated Glomerular Filt Rate > 60; Glucose Random 182 mg/dL (60-115); Phosphorus 2.1 mg/dL (2.7-4.5); Potassium 3.6 mmol/L (3.3-5.1); Sodium 138 mmol/L (135-145)
[2020-09-07 07:04] LABS: MANUAL DIFF FLAG NO
[2020-09-07] MEDS: Gabapentin 400 MG CAPSULE PO ×3 (08:58→20:57)
[2020-09-07] MEDS: Sodium,Potassium Phosphates POWD.PACK 1 PACKET PO ×3 (08:58→20:57)
[2020-09-07] MEDS: Magnesium Oxide 400 MG TABLET PO ×2 (10:11→16:45)
[2020-09-07] MEDS: Doxycycline Hyclate 100 MG in 0.9 % Sodium Chloride 250 ML 166.67 MG IV ×2 (10:11→21:39)
[2020-09-07] MEDS: FLUoxetine HCl 20 MG CAPSULE 40 MG PO (10:12)
[2020-09-07] MEDS: Furosemide 40 MG/4 ML VIAL IVPUSH ×2 (10:13→16:45)
--- NOTE | 2020-09-07 12:21 | MHC.RECOVSUP ---
? Reason for consult:Continuity of care o Current location: [facility] o Identified substance use concern:Heroin - Withdrawal - Support ? Intervention: o MAT started or to be started o Community resources provided o ? Plan: o Referral to [facility] o Follow up tomorrow o Patient to follow up with [facility] after discharge ? Additional information: Patient wants to start on suboxin again. Pt. last used suboxin one month ago. spoke with Nurse Guerrero about re-starting his in-patient suboxin. Nurse Guerrero to F/U.
[2020-09-07] MEDS: QUEtiapine Fumarate 50 MG TABLET PO (12:44)
--- NOTE | 2020-09-07 14:36 | HO.PM.IMPN ---
Subjective Subjective Date of Service: 09/07/20 Interval History: Seen in f/u for acute hypoxic resp failure, heart failure, still on high flow and overall doing better. He threatened to leave AMA this morning but later changed mind Review of Systems Gen: no fever Resp: +sob, no cough CV: no chest, no CALHOUN, no leg edema GI: No n/v, no abd pain Neuro: No confusion Physical Exam Vital Signs: Vital Signs: Last Vital Signs Temp 96.6 F L 09/07/20 12:00 Pulse 66 09/07/20 12:00 Resp 23 H 09/07/20 12:00 BP 106/59 L 09/07/20 12:00 Pulse Ox 92 09/07/20 13:26 Body Mass Index 29.8 General: AO X 3, no acute distress Resp: CTA bilateral CVS: S1,S2,RRR. 1+ pitting edema burt GI: +BS, NT, no distention Skin: No rash Neuro: motor grossly intact Psych: appropriate affect Objective Data Current Medications Generic Name Dose Route Start Last Admin Trade Name Freq PRN Reason Stop Dose Admin Albuterol/Ipratropium 3 ml 09/02/20 16:56 Albuterol/Iprat 2.5/0.5mg 3 Ml Ampul.Neb INHALE QID PRN shortness of breath Enoxaparin Sodium 40 mg 09/02/20 20:00 09/06/20 21:10 Enoxaparin Sodium 40 Mg/0.4 Ml Syringe SUBCUT Not Given Q24H ELISEO Fluoxetine HCl 40 mg 09/04/20 09:00 09/07/20 10:12 Fluoxetine Hcl 20 Mg Capsule PO 40 mg DAILY ELISEO Administration Furosemide 40 mg 09/06/20 18:00 09/07/20 10:13 Furosemide 40 Mg/4 Ml Vial IVPUSH 40 mg BID@0900,1800 ELISEO Administration Protocol Gabapentin 400 mg 09/03/20 21:00 09/07/20 08:58 Gabapentin 400 Mg Capsule PO 400 mg TID ELISEO Administration Doxycycline Hyclate 100 mg/ 250 mls @ 166.67 mls/hr 09/02/20 21:00 09/07/20 12:59 Sodium Chloride IV Infused BID ELISEO Infusion Cefepime HCl 2 gm/ Sodium 50 mls @ 100 mls/hr 09/03/20 12:30 09/07/20 12:59 Chloride IV 100 mls/hr Q8H ELISEO Administration Magnesium Oxide 400 mg 09/05/20 17:30 09/07/20 10:11 Magnesium Oxide 400 Mg Tablet PO 400 mg BIDPC ELISEO Administration Metoprolol Tartrate 12.5 mg 09/02/20 21:00 09/07/20 10:05 Metoprolol Tartrate 12.5 Mg Halftab PO Not Given BID [facility] Protocol Mirtazapine 7.5 mg 09/02/20 21:00 09/06/20 21:02 Mirtazapine 7.5 Mg Tablet PO 7.5 mg BEDTIME ELISEO Administration Omeprazole 40 mg 09/04/20 06:30 09/07/20 05:32 Omeprazole 40 Mg Capsule.Dr PO Not Given DAILY@0630 [facility] Ondansetron HCl 4 mg 09/02/20 16:54 Ondansetron Hcl 4 Mg/2 Ml Vial IVPUSH Q8H PRN Nausea Pharmacy Consult 1 each 09/02/20 16:54 Consult Rx Perform Med Rec MISCELLANE ONCE PRN Consult order Potassium Phos/Sodium Phos 1 packet 09/05/20 15:00 09/07/20 08:58 Sodium,Potassium Phosphates Powd.Pack PO 1 packet TID ELISEO Administration Quetiapine Fumarate 50 mg 09/03/20 16:49 09/07/20 12:44 Quetiapine Fumarate 50 Mg Tablet PO 50 mg DAILY PRN Administration agitation Tizanidine HCl 4 mg 09/03/20 16:55 09/07/20 10:18 Tizanidine Hcl 4 Mg Tablet PO 4 mg Q8H PRN Administration muscle spasticity Labs CBC & Chem 7: 09/07/20 05:59 09/07/20 05:59 Microbiology Microbiology Results: Microbiology 09/02/20 12:30 Blood - Venous Blood Culture - Final No growth after 5 days. 09/02/20 12:10 Blood - Venous Blood Culture - Final No growth after 5 days. Assessment and Plan (1) Acute respiratory failure with hypoxia: Status: Acute (2) Acute on chronic right heart failure: Status: Acute (3) Pneumonia: Status: Acute (4) Pulmonary hypertension: Status: Acute (5) Non-rheumatic tricuspid valve insufficiency: Status: Acute (6) Substance abuse: Status: Acute Assessment and Plan: 60-year-old gentleman with known history of cirrhosis related to hepatitis C, history of peripheral neuropathy and diet-controlled diabetes, who presented to [facility] due to worsening bilateral lower extremity edema,shortness of breath and chest pain with exertion, relieved with rest. The patient's workup is concerning for pneumonia, question congestive heart failure versus generalized anasarca due to underlying cirrhosis/elevated troponin concerning for acute coronary syndrome with abnormal EKG. Acute respiratory failure with hypoxia due to pneumonia and acute diastolic heart failure, negative covid multiple times, possible atypical pna -supportive care with O2, wean as juanpablo Heart failure--likely acute on chronic diastolic heart failure, negative 1.6 L fluid balanc, echo EF 55 to 60, transition to oral diuretics, contine Aldactoe Hypoalbuminemia added protein shakes and obtain nutrition consult Hypophosphatemia likely due to GI loss and decreased by mouth intake, status post IV phosphorus and on by mouth Neutra-Phos , s/p replacement, repeat level tomorrow Sepsis with pneumonia. There is is persistent leukocytosis but may be due to steroid.. No fever. Negative blood cultures. completed 5 days of Cefepime ad Doxy and will transition to PO Doxy at discharg Continue current treatment. Patient seen by ID she recommend 3-5 days of IV and outpatient doxycycline for 7 days to cover atypical pathogen Elevated troponin with chest pain. Troponin remains flat no further bout of chest pain continue aspirin and beta-gina Elevated bilirubin, both direct and indirect and elevated AST. h/o hep C, LFTs are trending down , no abdominal pain, no nausea, vomiting tolerating diet, follow LFTs hold on further workup History of anxiety and depression. Continue home Trazadone, seroquel and Ativan PRN Opiate use disorder patient restarted on Suboxone Deep vein thrombosis prophylaxis. on Lovenox/inr 1.7.
[2020-09-07] MEDS: Mirtazapine 7.5 MG TABLET PO (20:57)
[2020-09-07] MEDS: diphenhydrAMINE HCL 25 MG TABLET PO (20:57)
--- NOTE | 2020-09-07 20:57 | MHC.RECOVSUP ---
Meet with patient and Patient threaten to buy a gun and kill himself.. I reported his statement to the care team so they could report it to the proper department of care.
--- NOTE | 2020-09-07 21:23 | PM.EVENT ---
Event Note Date of Service: 09/07/20 Event Note: Suicidal ideation: RN mentioned the patient expressed ideas of harming himself. Consulted stat crisis team. One on 1 observation. Noted precautions. Will also consult Psychiatry.
--- NOTE | 2020-09-07 22:14 | MHC.CARE ---
CARE team contacted by college football coach who met with pt to provide recovery support. During consultation, pt disclosed active thoughts of suicide with plan and intent to purchase a firearm as a means of ending his life. This appeals writer communicated with Hospitalist to request that a crisis consult be placed for evaluation once he is medically cleared for assessment. Sect 12a completed with Hospitalist and placed in pt's chart.
[2020-09-07] MEDS: Melatonin 3 MG TABLET 6 MG PO (22:56)
[2020-09-08 02:58] VITALS: BP 127/60; PULSE 69; RESP 18; TEMP 36.6; O2SAT 96
[2020-09-08] MEDS: TiZANidine HCL 4 MG TABLET PO ×3 (03:01→21:48)
[2020-09-08] MEDS: cefEPime HCl 2 GM in 0.9 % Sodium Chloride 50 ML IV ×3 (04:58→22:49)
[2020-09-08 07:19] VITALS: BP 125/66; PULSE 60; RESP 20; TEMP 36.1; O2SAT 96
[2020-09-08] MEDS: Doxycycline Hyclate 100 MG in 0.9 % Sodium Chloride 250 ML 167 MG IV (09:18)
[2020-09-08] MEDS: Magnesium Oxide 400 MG TABLET PO ×2 (09:27→16:38)
[2020-09-08] MEDS: Furosemide 40 MG/4 ML VIAL IVPUSH ×2 (09:27→22:41)
[2020-09-08] MEDS: FLUoxetine HCl 20 MG CAPSULE 40 MG PO (09:27)
[2020-09-08] MEDS: QUEtiapine Fumarate 50 MG TABLET PO (09:28)
[2020-09-08] MEDS: Gabapentin 400 MG CAPSULE PO ×3 (09:28→21:48)
[2020-09-08] MEDS: Sodium,Potassium Phosphates POWD.PACK 1 PACKET PO ×3 (09:28→21:48)
[2020-09-08 11:22] VITALS: BP 92/52; PULSE 65; RESP 20; TEMP 36.2; O2SAT 94
--- NOTE | 2020-09-08 12:46 | MHC.CARE ---
1130: Met with pt after speaking with Male Model Julio via telephone and reviewing his and Ms. Palm's note in pt file. Pt is still endorsing SI by means of a fire arm or overdose. Pt reports that he is Tired of living this way explaining that he remains homeless and is struggling with addiction. Pt does have a section 12a in his file, placed there yesterday evening by Ms. Palm. Pt stated he is to be discharged today. Text sent to Dr. Brown, pt's , requesting confirmation. In speaking with pt's nurse she does not believe that he is medically ready to be discharged but can neither confirm nor deny his having a discharge plan in place for today.
--- NOTE | 2020-09-08 13:40 | MHC.CLN ---
F/U PT IS CONSUMING 75% AVG DIET RX: 2GM NA-PT MAY BENEFIT FROM LIBERALIZED DIET R/T LOW ALBUMIN PT RECEIVING ENSURE TID AND KIMBERLY PROVIDING 1210KCALS, 65G PROTEIN NOTED NH3 40 WNL -MONITOR CLOSELY INCREASED PO PROTEIN CAN AFFECT AMMONIA LEVELS MONITOR BS FOLLOWING
[2020-09-08 15:11] VITALS: BP 100/56; PULSE 73; RESP 19; TEMP 36.3; O2SAT 93
--- NOTE | 2020-09-08 16:15 | HO.PM.IMPN ---
Subjective Subjective Date of Service: 09/08/20 Interval History: Seen in f/u for acute hypoxic resp failure, heart failure, still on high flow and overall doing better. He now has sitter because he has been threatening to kill himself Review of Systems Gen: no fever Resp: +sob, no cough CV: no chest, no CALHOUN, no leg edema GI: No n/v, no abd pain Neuro: No confusion Psych: SI Physical Exam Vital Signs: Vital Signs: Last Vital Signs Temp 97.3 F 09/08/20 15:11 Pulse 73 09/08/20 15:11 Resp 19 09/08/20 15:11 BP 100/56 L 09/08/20 15:11 Pulse Ox 93 09/08/20 15:11 Body Mass Index 29.8 General: AO X 3, no acute distress Resp: clear burt, no accessory muscle use CVS: S1,S2,RRR GI: +BS, NT, no distention Skin: No rash Neuro: motor grossly intact Psych: appropriate affect, SI Objective Data Current Medications Generic Name Dose Route Start Last Admin Trade Name Freq PRN Reason Stop Dose Admin Albuterol/Ipratropium 3 ml 09/02/20 16:56 Albuterol/Iprat 2.5/0.5mg 3 Ml Ampul.Neb INHALE QID PRN shortness of breath Enoxaparin Sodium 40 mg 09/02/20 20:00 09/07/20 20:59 Enoxaparin Sodium 40 Mg/0.4 Ml Syringe SUBCUT Not Given Q24H ELISEO Fluoxetine HCl 40 mg 09/04/20 09:00 09/08/20 09:27 Fluoxetine Hcl 20 Mg Capsule PO 40 mg DAILY ELISEO Administration Furosemide 40 mg 09/06/20 18:00 09/08/20 09:27 Furosemide 40 Mg/4 Ml Vial IVPUSH 40 mg BID@0900,1800 ELISEO Administration Protocol Gabapentin 400 mg 09/03/20 21:00 09/08/20 14:50 Gabapentin 400 Mg Capsule PO 400 mg TID ELISEO Administration Doxycycline Hyclate 100 mg/ 250 mls @ 166.67 mls/hr 09/02/20 21:00 09/08/20 12:54 Sodium Chloride IV Infused BID ELISEO Infusion Cefepime HCl 2 gm/ Sodium 50 mls @ 100 mls/hr 09/03/20 12:30 09/08/20 15:30 Chloride IV Infused Q8H ELISEO Infusion Magnesium Oxide 400 mg 09/05/20 17:30 09/08/20 09:27 Magnesium Oxide 400 Mg Tablet PO 400 mg BIDPC ELISEO Administration Metoprolol Tartrate 12.5 mg 09/02/20 21:00 09/08/20 09:28 Metoprolol Tartrate 12.5 Mg Halftab PO Not Given BID [facility] Protocol Mirtazapine 7.5 mg 09/02/20 21:00 09/07/20 20:57 Mirtazapine 7.5 Mg Tablet PO 7.5 mg BEDTIME ELISEO Administration Omeprazole 40 mg 09/04/20 06:30 09/08/20 05:02 Omeprazole 40 Mg Capsule.Dr PO Not Given DAILY@0630 [facility] Ondansetron HCl 4 mg 09/02/20 16:54 Ondansetron Hcl 4 Mg/2 Ml Vial IVPUSH Q8H PRN Nausea Pharmacy Consult 1 each 09/02/20 16:54 Consult Rx Perform Med Rec MISCELLANE ONCE PRN Consult order Potassium Phos/Sodium Phos 1 packet 09/05/20 15:00 09/08/20 14:50 Sodium,Potassium Phosphates Powd.Pack PO 1 packet TID ELISEO Administration Quetiapine Fumarate 50 mg 09/03/20 16:49 09/08/20 09:28 Quetiapine Fumarate 50 Mg Tablet PO 50 mg DAILY PRN Administration agitation Tizanidine HCl 4 mg 09/03/20 16:55 09/08/20 09:27 Tizanidine Hcl 4 Mg Tablet PO 4 mg Q8H PRN Administration muscle spasticity Labs CBC & Chem 7: 09/07/20 05:59 09/07/20 05:59 Microbiology Microbiology Results: Microbiology 09/02/20 12:30 Blood - Venous Blood Culture - Final No growth after 5 days. 09/02/20 12:10 Blood - Venous Blood Culture - Final No growth after 5 days. Assessment and Plan (1) Acute respiratory failure with hypoxia: Status: Acute (2) Acute on chronic right heart failure: Status: Acute (3) Pneumonia: Status: Acute (4) Pulmonary hypertension: Status: Acute (5) Non-rheumatic tricuspid valve insufficiency: Status: Acute (6) Substance abuse: Status: Acute Assessment and Plan: 60-year-old gentleman with known history of cirrhosis related to hepatitis C, history of peripheral neuropathy and diet-controlled diabetes, who presented to [facility] due to worsening bilateral lower extremity edema,shortness of breath and chest pain with exertion, relieved with rest. The patient's workup is concerning for pneumonia, question congestive heart failure versus generalized anasarca due to underlying cirrhosis/elevated troponin concerning for acute coronary syndrome with abnormal EKG. Acute respiratory failure with hypoxia due to pneumonia and acute diastolic heart failure, negative covid multiple times, possible atypical pna -supportive care with O2, wean as juanpablo Heart failure--likely acute on chronic diastolic heart failure, clinically better negative 3922 liters, echo EF 55 to 60, transition to oral diuretics, contine Aldactoe Hypoalbuminemia, increase protein intake Hypophosphatemia likely due to GI loss and decreased by mouth intake, status post IV phosphorus and on by mouth Neutra-Phos , s/p replacement Sepsis with pneumonia. There is is persistent leukocytosis but may be due to steroid.. No fever. Negative blood cultures. completed 5 days of Cefepime ad Doxy and will transition to PO Doxy at discharg Continue current treatment. Patient seen by ID she recommend 3-5 days of IV and outpatient doxycycline for 7 days to cover atypical pathogen Elevated troponin with chest pain. Troponin remains flat no further bout of chest pain continue aspirin and beta-gina Elevated bilirubin, both direct and indirect and elevated AST. h/o hep C, LFTs are trending down , no abdominal pain, no nausea, vomiting tolerating diet, follow LFTs hold on further workup History of anxiety and depression. Continue home Trazadone, seroquel and Ativan PRN Opiate use disorder patient restarted on Suboxone Psych: tomas MERRILL, inpatient psych upon discharge Deep vein thrombosis prophylaxis. on Lovenox/inr 1.7.
[2020-09-08 19:35] VITALS: BP 115/66; PULSE 76; RESP 19; TEMP 36.6; O2SAT 93
[2020-09-08] MEDS: Buprenorphine/Naloxone 8/2 mg FILM 1 FILM SUBLINGUAL (21:48)
[2020-09-08] MEDS: Mirtazapine 7.5 MG TABLET PO (21:48)
[2020-09-08] MEDS: Metoprolol Tartrate 12.5 MG HALFTAB PO (21:48)
[2020-09-08] MEDS: Enoxaparin Sodium 40 MG/0.4 ML SYRINGE SUBCUT (22:05)
[2020-09-08] MEDS: Doxycycline Hyclate 100 MG in 0.9 % Sodium Chloride 250 ML 166.67 MG IV (22:52)
[2020-09-08 23:38] VITALS: BP 134/74; PULSE 80; RESP 20; TEMP 36.3; O2SAT 93
[2020-09-09 04:00] VITALS: BP 114/62; PULSE 66; RESP 20; TEMP 36.4; O2SAT 95
[2020-09-09] MEDS: cefEPime HCl 2 GM in 0.9 % Sodium Chloride 50 ML IV ×3 (04:40→20:50)
[2020-09-09 07:35] VITALS: BP 114/66; PULSE 65; RESP 20; TEMP 36.2; O2SAT 97
[2020-09-09 07:52] LABS: SARS COV2 IgG Negative (Negative)
[2020-09-09] MEDS: TiZANidine HCL 4 MG TABLET PO ×2 (10:10→20:48)
[2020-09-09] MEDS: Gabapentin 400 MG CAPSULE PO ×3 (10:11→20:48)
[2020-09-09] MEDS: Magnesium Oxide 400 MG TABLET PO ×2 (10:11→17:43)
[2020-09-09] MEDS: Furosemide 40 MG/4 ML VIAL IVPUSH ×2 (10:11→17:43)
[2020-09-09] MEDS: Sodium,Potassium Phosphates POWD.PACK 1 PACKET PO ×3 (10:11→20:52)
[2020-09-09] MEDS: Omeprazole 40 MG CAPSULE.DR PO (10:12)
[2020-09-09] MEDS: FLUoxetine HCl 20 MG CAPSULE 40 MG PO (10:12)
[2020-09-09] MEDS: Doxycycline Hyclate 100 MG in 0.9 % Sodium Chloride 250 ML 167 MG IV (10:13)
[2020-09-09] MEDS: Metoprolol Tartrate 12.5 MG HALFTAB PO ×2 (10:16→20:48)
--- NOTE | 2020-09-09 12:34 | PM.DS ---
DS: Providers Provider Date of Service: 10/06/20 Date of admission: 09/02/20 16:54 Discharge date: 09/30/20 Primary care physician: [facility] Consults: 09/02/20 16:54 Consult to Cardiology Routine Consulting Provider: Bennett Jones Reason for consultation: chf/abnormal ekg Has provider been notified: No 09/03/20 08:34 Consult to Cardiology Routine Consulting Provider: Bennett Jones Reason for consultation: chf 09/03/20 11:56 Addiction Medicine Routine Consulting Provider: Yana South Reason for consultation: heroin use was on suboxone Has provider been notified: No 09/04/20 12:22 Consult to Infectious Diseases Routine Consulting Provider: Erlinda Ramirez Reason for consultation: hypoxemia 09/07/20 21:22 Consult to Crisis Stat Reason for consultation: SI Consult to Psychiatry Stat Consulting Provider: Psych Covering Reason for consultation: SI DS: Diagnosis Discharge Diagnosis (1) Acute respiratory failure with hypoxia: Status: Acute (2) Acute on chronic right heart failure: Status: Acute (3) Pneumonia: Status: Acute (4) Pulmonary hypertension: Status: Acute (5) Non-rheumatic tricuspid valve insufficiency: Status: Acute (6) Substance abuse: Status: Acute DS: Medications Discharge Medications Home Medications: Home Medications Medication Instructions Recorded Confirmed euhmeufnovlk-wpwz-[id number] acid 1 tab PO DAILY 06/29/20 09/02/20 [Certavite-Antioxidant] buprenorphine-naloxone [Suboxone] film SUBLINGUAL DAILY 09/02/20 Previous Rx's Medication Instructions Recorded fluoxetine 40 mg PO DAILY #30 cap 06/28/20 furosemide 40 mg PO DAILY #30 tab 06/28/20 gabapentin 400 mg PO TID #90 cap 06/28/20 lorazepam 0.5 mg PO Q8H PRN #15 tab 06/28/20 mirtazapine 7.5 mg PO BEDTIME #30 tab 06/28/20 quetiapine [Seroquel] 50 mg PO DAILY PRN #14 tab 06/28/20 spironolactone 50 mg PO DAILY #30 tab 06/28/20 tizanidine 4 mg PO Q8H PRN #30 cap 06/28/20 naloxone [Narcan] 4 mg INTRANASAL Q2M PRN #2 ea 06/29/20 DS: Summary Hospital Course Hospital Course: Vincent completed 09/30/20 HISTORY OF PRESENT ILLNESS: The patient is a 60 yo M with the following PMHx: - Cerebral microvascular disease - 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 Reportedly had been using bags of heroin for the prior 3 weeks. In the ED, SpO2 was 56% on room air, 90?s on 50% venti mask. He had bilat pitting edema. CXR showed diffuse bilat infiltrates, infectious vs inflamm vs pulmonary edema. CT angiogram showed diffuse bilateral ground-glass infiltrates, with peripheral sparing. There were multiple compression fractures of the thoracic and lumbar vertebrae. The inferior vena cava was prominent. There was portal hypertension with varices. The RV:LV ratio was increased to about 1.0, with at least top-normal RV size, and straightening if not bowing of the left heart border. There was no pulmonary embolism. BNP was 1380, BUN/creat was 38/0.9 (baseline about 0.7) and trop was 58 x both determinations. WBC was 13, lactate was 2.5. COVID negative. The patient was admitted to Hospialist Service and treated with antibiotics for possible pneumonia, and diuretics for heart failure. Echo done on September 03 showed normal LV systolic function with no regional wall motion abnormalities, ejection fraction 55-60%, with mildly increased LV wall thickness. There was grade 1 diastolic dysfunction. RV cavity size was mildly increased with dilated IVC, and RVSP estimate 45 mm. D-dimer on September 04 was >52,000 (the upper limit of the analyzer). Repeat COVID on 09/04 was negative. A repeat noncontrast chest CT on September 04 showed slightly worse infiltrates, which the radiologist thought was most c/w pulmon edema. PCT was 0.15. The patient was reportedly improving with the above treatment. But oxygenation worsened on September 13. Repeat chest x-ray showed marked worsening of the diffuse bilateral airspace and interstitial infiltrates. He completed 5 days of cefepime and doxycycline, and was then put on Zosyn. His oxygenation deteriorated further. The patient was thought to have qdwqe-oj-xjrbmtu diastolic heart failure, exacerbated by hypoalbuminemia and 3rd spacing. Interstitial lung disease secondary to substance abuse was also in the differential. He was given albumin and diuresed. On September 15, the patient required CPAP and was transferred to the ICU. Chest x-ray showed progressing bilateral infiltrates. Repeat COVID test was negative. The patient was started on empiric Solu-Medrol for possible heroin-associated interstitial lung disease, and Bactrim for possible PCP. DVT study was negative. He required tracheal intubation the next day. BUN/creat ratio gene to a peak of 61/0.8 as the patient was diuresed. The patient underwent diagnostic bronchoscopy/BAL on 09/17. Repeat CT September 19 showed worse diffuse bilateral interstitial and alveolar infiltrates, altho his FiO2 had improved to 40%. He was started on a 3-day pulse of solumedrol, which completed on 09/22. Pneumocystis PCR from the BAL came back negative, and Bactrim was discontinued. Of note, on 09/18, the patient developed bradycardia that seemed 2? propofol, so the propofol wad d/c?d and he was put on prn Ativan. He had been continued on high dose fentanyl infusion. The patient had been on stable FiO2 40%/+10 since 09/19. On 09/23, his FiO2 was reduced to 35%. The fentanyl infusion was discontinued after the patient was switched to PSV and his resp rate was only 5-6, with tidal vols around the 1L . He stayed on PSV overnite and was then extubated yesterday morning without incident and has been on NC oxygen since noon yesterday. on 09/25 He was transfered out of ICU to the medical floor where he has continued to recover, he has been taking off Oxygen, he remains very weak and PT recommends STR which he has been resisting going to the rehab which obviously he needs as she is very weak, unbalb to ambulate with lots of assitance, he's finally agreable to go IMAGING: Last CXR 09/21 shows severe interstitial dz. No change from 09/18. Notably, chest CT in 2019 showed no acute lung dz, and the lung cuts from an abdominal CT on 08/15/2020 also showed clear lung yen. ECHOCARDIOGRAM done 09/21 showed normal EF, and no Pulmonary HTN\ Most recente labs on 09/26 WBC 13 (due to steroid), Hgb 10.5, hematocrit 32 and Plat 208K. Chemistry 09/30 IMPRESSION: 1. Underlying chronic lung disease and cirrhosis, by history. 2. Diffuse acute bilateral pulmonary infiltrates of undetermined etiology. Pneumocystis PCR came back negative; Bactrim was d/c?d. The patient was also treated with pulse steroids for possible heroin-associated ILD. Completed his 3-day course on 09/22, with no rapid dramatic effect, but he?s clearly improved, both oxygenation and ventilation. His WOB is entirely normal, which suggests near normal lung compliance. All that suggests a steroid benefit. We don?t necessarily need further radiographic proof. Discussed with Dr. Mcgovern. The plan will be to continue Prednisone 60 mg daily for 3 months. (Had discussed a lung biopsy with Dr. Jacinto earlier this week. He wouldn?t consider it. In his opinion it would likely lead to the of the patient.) 3. VIKRAM. This has resolved, Most recent Creatinine on 09/25 was 0.61 4. Pulmonary HTN--He had an echo on 09/03 that showed Pulmonary HTN and was started on Sildenafil, a repeat echo on 09/20 showed no pulmonary HTN and therefore Sildenafil discontinue. and he will follow up with Pulmonary clinic. 5. Neuropsych. His Med Rec indicates that he was previously on Suboxone, Seroquel 50 mg daily prn agitation, lorazepam 0.5 mg Q8 hr prn anxiety, gabapentin 400 mg tid, and fluoxetine 20 mg daily. I?m going to continue fluoxetine and Ativan. Given that he?s been here for 4 weeks without the suboxone, he?s effectively detoxed. Additionally has has not been on Xanaflex, Gabapentin and Seroquel and will not restart. Will restart Remron at night 6. Underlying DM. POCs are in range, without treatment 7. Metabolic alkalosis. 2? diuresis, Treated with Diamox 8. ICU Myopathy--He is very weak, and need extensive physical therapy to regain strenght, Stable for transfer to a regular room. I will sign out to the hospitalists. Time Spent with Patient Time attestation: Total time spent providing and/or coordinating discharge services: Discharge coordination time: Greater than 30 minutes Physical Exam Vital Signs: Vital Signs: Last Vital Signs Selected Entries 09/30/20 07:11 Temperature 98.0 F Pulse Rate 74 Respiratory Rate 17 Blood Pressure 151/76 H Pulse Oximetry 90 L Oxygen Delivery Me thod Room Air Body Mass Index 29.8 DS: Data Data Completed and Pending Completed studies during hospitalization [Text1]: Procedures Detoxification Services for Substance Abuse Treatment (05/02/20) Repair Left Lower Leg Skin, External Approach (05/02/20) Labs on day of discharge: Laboratory Results - last 24 hr 09/07/20 08:20 SARS-CoV-2 IgG Ab Negative Discharge Plan Discharge Anticipated Discharge Date/Time: 09/30/20 08:10 Patient Disposition: Xfer SNF Discharge Diagnosis: Acute hypoxic respiratory failure Acute right-sided heart failure Pneumonia Referrals: [facility] [Outside] - 1 Week Center,[facility] [Primary Care Provider] - Shola Mcgovern MD [Physician] - 1 Week Discharge Medications: New miconazole nitrate [Inzo Antifungal] 2 % Cream 1 appl topical BID Qty: 30 RF: 0 lorazepam 0.5 mg Tablet 0.5 mg PO Q8H PRN (Reason: Anxiety) Qty: 10 RF: 0 furosemide 20 mg Tablet 20 mg PO DAILY Qty: 30 RF: 0 prednisone 10 mg tablet See Taper mg PO DAILY Qty: 90 RF: 0 Continued mirtazapine 7.5 mg Tablet 7.5 mg PO BEDTIME Qty: 30 RF: 0 fluoxetine 20 mg capsule 40 mg PO DAILY Qty: 30 RF: 0 Discontinued Certavite-Antioxidant 18-400 mg-mcg Tablet 1 tab PO DAILY RF: 0 buprenorphine-naloxone [Suboxone] 8-2 mg film sublingual DAILY RF: 0 gabapentin 400 mg Capsule 400 mg PO TID Qty: 90 RF: 0 lorazepam 0.5 mg Tablet 0.5 mg PO Q8H PRN (Reason: Anxiety) Qty: 15 RF: 1 tizanidine 4 mg capsule 4 mg PO Q8H PRN (Reason: muscle spasticity) Qty: 30 RF: 0 quetiapine [Seroquel] 50 mg tablet 50 mg PO DAILY PRN (Reason: agitation) Qty: 14 RF: 1 furosemide 40 mg Tablet 40 mg PO DAILY Qty: 30 RF: 0 spironolactone 50 mg Tablet 50 mg PO DAILY Qty: 30 RF: 0 Narcan 4 mg/actuation spray,non-aerosol 4 mg intranasal Q2M PRN (Reason: opioid overdose) Qty: 2 RF: 0 Discharge Orders: Discharge Order (Routine); Ordered 09/30/20 Ordered By: Primo Brown Diet: low salt diet Activity on Discharge: As tolerated Stand Alone Forms: Patient Portal Discharge page Care Plan Goals: Full recovery from acute respiratory failure Health Concerns: acute respiratory failure that is now resolving, substance abuse Plan of Treatment: To short-term rehab, follow-up for pulmonary clinic. Assessment: As per discharge summary Discharge Date/Time: 09/30/20 11:54
--- NOTE | 2020-09-09 14:45 | MHC.CARE ---
Addendum entered by Amy Anguiano [facility] 09/09/20 15:36: CARE Team continues to advise that a [facility]N crisis evaluation be completed once pt is medically cleared. Original Note: 1130: Met with pt to follow up after meeting yesterday. Pt continues to endorse SI with a plan to do so via gun shot or overdose. Pt continues to state that he cannot live like this anymore .
[2020-09-09 15:04] VITALS: BP 116/71; PULSE 70; RESP 20; TEMP 36.6; O2SAT 94
[2020-09-09] MEDS: Buprenorphine/Naloxone 8/2 mg FILM 1 FILM SUBLINGUAL (17:54)
[2020-09-09 19:26] VITALS: BP 140/76; PULSE 72; RESP 18; TEMP 36.6; O2SAT 93
[2020-09-09] MEDS: QUEtiapine Fumarate 50 MG TABLET PO (20:47)
[2020-09-09 20:48] VITALS: BP 140/77; PULSE 77
[2020-09-09] MEDS: Mirtazapine 7.5 MG TABLET PO (20:48)
[2020-09-09] MEDS: Doxycycline Hyclate 100 MG in 0.9 % Sodium Chloride 250 ML 166.67 MG IV (20:50)
[2020-09-09] MEDS: Enoxaparin Sodium 40 MG/0.4 ML SYRINGE SUBCUT (20:52)
[2020-09-09 23:26] VITALS: BP 90/54; PULSE 63; RESP 18; TEMP 36.4; O2SAT 93
[2020-09-10] VITALS (7 sets, daily range): BP systolic 90–128; BP diastolic 46–70; PULSE 57–72; RESP 16–24; TEMP 36.1–36.9; O2SAT 91–95
[2020-09-10] MEDS: cefEPime HCl 2 GM in 0.9 % Sodium Chloride 50 ML IV (05:35)
[2020-09-10] MEDS: Omeprazole 40 MG CAPSULE.DR PO (05:37)
[2020-09-10] MEDS: TiZANidine HCL 4 MG TABLET PO ×2 (05:37→20:36)
[2020-09-10] MEDS: Furosemide 40 MG/4 ML VIAL IVPUSH ×2 (08:21→17:04)
[2020-09-10] MEDS: Sodium,Potassium Phosphates POWD.PACK 1 PACKET PO ×3 (08:22→20:37)
[2020-09-10] MEDS: Metoprolol Tartrate 12.5 MG HALFTAB PO ×2 (08:22→20:35)
[2020-09-10] MEDS: Magnesium Oxide 400 MG TABLET PO ×2 (08:22→17:04)
[2020-09-10] MEDS: FLUoxetine HCl 20 MG CAPSULE 40 MG PO (08:22)
[2020-09-10] MEDS: Gabapentin 400 MG CAPSULE PO ×3 (08:23→20:37)
[2020-09-10 08:42] LABS: Hematocrit 33.8 % (42-52); Hemoglobin 11.3 g/dl (14.0-18.0); Mean Corpuscular HGB Conc 33.4 g/dl (31.0-36.0); Mean Corpuscular Hemoglobin 30.2 pg (27.0-33.0); Mean Corpuscular Volume 90.4 fL (80-98); Mean Platelet Volume 11.3 fL (9.4-12.4); Platelet Count 245 X10*3/uL (160-400); Red Blood Count 3.74 X10*6/uL (4.60-5.80); Red Cell Distribution Width 21.4 % (11.0-16.0); White Blood Count 18.5 X10*3/uL (4.8-10.8)
[2020-09-10 08:53] LABS: Anion Gap 8 (12-20); Blood Urea Nitrogen 19 mg/dL (9-16); Calcium 6.9 mg/dL (8.4-10.2); Carbon Dioxide 30 mmol/L (22-29); Chloride 104 mmol/L (96-108); Creatinine Clr Calc Pharmacy 166.4; Estimated Glomerular Filt Rate > 60; Glucose Random 100 mg/dL (60-115); Sodium 138 mmol/L (135-145)
[2020-09-10] MEDS: ondansetron HCL 4 MG/2 ML VIAL IVPUSH (10:57)
--- NOTE | 2020-09-10 11:36 | P.PNIM_ITS ---
Subjective Subjective Date of Service: 09/10/20 Interval History: Seen in f/u for acute hypoxic resp failure, he is doing better, now on 4 liter by nasal canula, is still suicidal Review of Systems Gen: no fever Resp: +sob, no cough CV: no chest, no CALHOUN, no leg edema GI: No n/v, no abd pain Neuro: No confusion Psych: SI Physical Exam Vital Signs: Vital Signs: Last Vital Signs Temp 97.8 F 09/10/20 07:39 Pulse 58 09/10/20 07:39 Resp 24 H 09/10/20 07:39 BP 90/50 L 09/10/20 07:39 Pulse Ox 92 09/10/20 07:39 Body Mass Index 29.8 General: AO X 3, no acute distress, cooperative Resp: rhonchi CVS: S1,S2,RRR GI: +BS, NT, no distention Skin: No rash Neuro: motor grossly intact Psych: appropriate affect , suicial Objective Data Current Medications Generic Name Dose Route Start Last Admin Trade Name Vivien PRN Reason Stop Dose Admin Buprenorphine/Naloxone 1 film 09/10/20 18:00 Buprenorphine/Naloxone 8/2 Mg Film SUBLINGUAL DAILY@1800 [facility] Enoxaparin Sodium 40 mg 09/02/20 20:00 09/09/20 20:52 Enoxaparin Sodium 40 Mg/0.4 Ml Syringe SUBCUT 40 mg Q24H ELISEO Administration Fluoxetine HCl 40 mg 09/04/20 09:00 09/10/20 08:22 Fluoxetine Hcl 20 Mg Capsule PO 40 mg DAILY ELISEO Administration Furosemide 40 mg 09/06/20 18:00 09/10/20 08:21 Furosemide 40 Mg/4 Ml Vial IVPUSH 40 mg BID@0900,1800 ELISEO Administration Protocol Gabapentin 400 mg 09/03/20 21:00 09/10/20 08:23 Gabapentin 400 Mg Capsule PO 400 mg TID ELSIEO Administration Cefepime HCl 2 gm/ Sodium 50 mls @ 100 mls/hr 09/03/20 12:30 09/10/20 06:05 Chloride IV Infused Q8H ELISEO Infusion Magnesium Oxide 400 mg 09/05/20 17:30 09/10/20 08:22 Magnesium Oxide 400 Mg Tablet PO 400 mg BIDPC ELISEO Administration Metoprolol Tartrate 12.5 mg 09/02/20 21:00 09/10/20 08:22 Metoprolol Tartrate 12.5 Mg Halftab PO 12.5 mg BID ELISEO Administration Protocol Mirtazapine 7.5 mg 09/02/20 21:00 09/09/20 20:48 Mirtazapine 7.5 Mg Tablet PO 7.5 mg BEDTIME ELISEO Administration Omeprazole 40 mg 09/04/20 06:30 09/10/20 05:37 Omeprazole 40 Mg Capsule.Dr PO 40 mg DAILY@0630 ELISEO Administration Ondansetron HCl 4 mg 09/02/20 16:54 09/10/20 10:57 Ondansetron Hcl 4 Mg/2 Ml Vial IVPUSH 4 mg Q8H PRN Administration Nausea Pharmacy Consult 1 each 09/02/20 16:54 Consult Rx Perform Med Rec MISCELLANE ONCE PRN Consult order Potassium Phos/Sodium Phos 1 packet 09/05/20 15:00 09/10/20 08:22 Sodium,Potassium Phosphates Powd.Pack PO 1 packet TID ELISEO Administration Quetiapine Fumarate 50 mg 09/03/20 16:49 09/09/20 20:47 Quetiapine Fumarate 50 Mg Tablet PO 50 mg DAILY PRN Administration agitation Tizanidine HCl 4 mg 09/03/20 16:55 09/10/20 05:37 Tizanidine Hcl 4 Mg Tablet PO 4 mg Q8H PRN Administration muscle spasticity Labs CBC & Chem 7: 09/10/20 07:48 09/10/20 07:48 Microbiology Microbiology Results: Microbiology 09/02/20 12:30 Blood - Venous Blood Culture - Final No growth after 5 days. 09/02/20 12:10 Blood - Venous Blood Culture - Final No growth after 5 days. Assessment and Plan (1) Acute respiratory failure with hypoxia: Status: Acute (2) Acute on chronic right heart failure: Status: Acute (3) Pneumonia: Status: Acute (4) Pulmonary hypertension: Status: Acute (5) Non-rheumatic tricuspid valve insufficiency: Status: Acute (6) Substance abuse: Status: Acute Assessment and Plan: 60-year-old gentleman with known history of cirrhosis related to hepatitis C, history of peripheral neuropathy and diet-controlled diabetes, who presented to [facility] due to worsening bilateral lower extremity edema,shortness of breath and chest pain with exertion, relieved with rest. The patient's workup is concerning for pneumonia, question congestive heart failure versus generalized anasarca due to underlying cirrhosis/elevated troponin concerning for acute coronary syndrome with abnormal EKG. Acute respiratory failure with hypoxia due to pneumonia and acute diastolic heart failure, negative covid multiple times, possible atypical pna -supportive care with O2, wean as juanpablo. He will need home O2 Heart failure--likely acute on chronic diastolic heart failure, clinically better negative 3922 liters, echo EF 55 to 60, transition to oral diuretics, contine Aldactoe Hypoalbuminemia, increase protein intake Hypophosphatemia likely due to GI loss and decreased by mouth intake, status post IV phosphorus and on by mouth Neutra-Phos , s/p replacement Sepsis with pneumonia. There is is persistent leukocytosis but may be due to steroid.. No fever. Negative blood cultures. completed 5 days of Cefepime ad Do xy and will transition to PO Doxy at discharg Continue current treatment. Patient seen by ID she recommend 3-5 days of IV and outpatient doxycycline for 7 days to cover atypical pathogen--change to Doxy today Elevated troponin with chest pain. Troponin remains flat no further bout of chest pain continue aspirin and beta-gina Elevated bilirubin, both direct and indirect and elevated AST. h/o hep C, LFTs are trending down , no abdominal pain, no nausea, vomiting tolerating diet, follow LFTs hold on further workup History of anxiety and depression. Continue home Trazadone, seroquel and Ativan PRN Opiate use disorder patient restarted on Suboxone Psych: tomas MERRILL, inpatient psych upon discharge Deep vein thrombosis prophylaxis. on Lovenox/inr 1.7.
--- NOTE | 2020-09-10 17:37 | PC.NURSE ---
P bilateral lower legs edema,discoloration,hot to touch,right arm swelling present ,right arm much warmer to touch than left I-right arm elevated on a pillow,legs elevated,Dr. Brown notified E- will monitor
--- NOTE | 2020-09-10 20:10 | PC.NURSE ---
P patient refusesto go for US of his arm I explained need for test, notified E patient states he will go in am
[2020-09-10] MEDS: QUEtiapine Fumarate 50 MG TABLET PO (20:36)
[2020-09-10] MEDS: Enoxaparin Sodium 40 MG/0.4 ML SYRINGE SUBCUT (20:36)
[2020-09-10] MEDS: Mirtazapine 7.5 MG TABLET PO (20:37)
[2020-09-11] VITALS (10 sets, daily range): BP systolic 101–142; BP diastolic 56–72; PULSE 66–81; RESP 18–20; TEMP 36.4–37.3; O2SAT 77–94
--- NOTE | 2020-09-11 05:49 | PC.NURSE ---
Pt refusing hygiene and assistance with repositioning overnight. Pt educated on the importance of frequent repositioning. Pt states I want to be left alone. Pt resting in bed with eyes closed. 1:1 sitter at bedside.
[2020-09-11] MEDS: FLUoxetine HCl 20 MG CAPSULE 40 MG PO (08:56)
[2020-09-11] MEDS: Magnesium Oxide 400 MG TABLET PO ×2 (08:57→18:29)
[2020-09-11] MEDS: Gabapentin 400 MG CAPSULE PO ×3 (08:58→22:28)
[2020-09-11] MEDS: Sodium,Potassium Phosphates POWD.PACK 1 PACKET PO ×3 (08:58→22:28)
--- NOTE | 2020-09-11 12:48 | MHC.CM.PN ---
CM MET WITH PT TO DISCUSS DC PLANS. PT HAS BEEN CLEARED BY Fe. PT REPORTS HE WILL BE STAYING AT THE [facility] IN [place] UPON DISCHARGE. PT IS AWARE HE WILL LIKELY NEED CONTINUOUS OXYGEN. HE IS VERY ANXIOUS TO LEAVE HOWEVER HE AGREED TO WAIT FOR HOME O2 EVAL. CM DISCUSSED THE PROCESS OF GETTING THE EVAL AND HAVING OXYGEN DELIVERED HOWEVER RT WILL LIKELY HAVE MORE INFORMATION. CURRENT DC PLAN IS TO A [facility] PENDING RT EVAL.
--- NOTE | 2020-09-11 13:23 | PC.NURSE ---
Addendum entered by Bárbara Romero RN 09/11/20 18:45: Patient will stay tonight. Original Note: Patient wants to leave today,cleared by BHN/crisis but O2 sat is only 80% on room air.Patient states is feeling good,Dr Miles at bedside,ordered home o2 eval.Patient is homeless not sure where he will stay,maybe [facility] days.Respiratory at bedside, eval not performed do to low o2 saturation at rest,also oxygen delivery not available to choosen place of stay .Patient is alert and oriented,very determined to leave,encouraged to stay,made aware of risks of leaving in present condition.Patient did not specify why he wants to leave besides being irritable with length of stay. Will update/monitor progress.
--- NOTE | 2020-09-11 13:24 | PC.RT ---
Met with patient for Oxygen evaluation order. Found patient on room air spo2 77%. Patient was not walked due to hypoxic, placed patient on 4lnc spo2 increased to 92%. Spoke with Dr. Miles about not being able to walk the patient due to concern of his spo2 of 77%. .
--- NOTE | 2020-09-11 15:30 | P.PNIM_ITS ---
Subjective Subjective Date of Service: 09/11/20 Interval History: Patient awake alert wants to go home, offers no acute complaints is adamant about leaving, currently on 4 L of oxygen finger oximetry 90 91% without oxygen finger oximetry drops to 79% General no headache, no dizziness, no fever chills. CVS no chest pain, no palpitation. Respiratory no cough , no sob. Gastrointestinal no nausea, no vomiting, no abdominal pain Physical Exam Vital Signs: Vital Signs: Last Vital Signs Temp 98.5 F 09/11/20 11:17 Pulse 69 09/11/20 11:17 Resp 18 09/11/20 11:17 BP 120/72 09/11/20 11:17 Pulse Ox 94 09/11/20 15:04 Body Mass Index 29.8 General awake alert in no acute distress Neck no JVD. CVS regular rate rhythm, Respiratory lungs coarse breath sound, no respiratory distress Gastrointestinal abdomen soft, nontender, bowel sounds audible, no guarding , no rigidity. Neuro nonfocal , alert oriented x3, speech clear. Psych appropriate affect Skin no rash Objective Data Current Medications Generic Name Dose Route Start Last Admin Trade Name Vivien PRN Reason Stop Dose Admin Buprenorphine/Naloxone 1 film 09/10/20 18:00 09/10/20 20:35 Buprenorphine/Naloxone 8/2 Mg Film SUBLINGUAL Not Given DAILY@1800 [facility] Doxycycline Hyclate 100 mg 09/10/20 12:00 09/11/20 12:22 Doxycycline Hyclate 100 Mg Tablet PO 100 mg Q12H ELISEO Administration Enoxaparin Sodium 40 mg 09/02/20 20:00 09/10/20 20:36 Enoxaparin Sodium 40 Mg/0.4 Ml Syringe SUBCUT 40 mg Q24H ELISEO Administration Fluoxetine HCl 40 mg 09/04/20 09:00 09/11/20 08:56 Fluoxetine Hcl 20 Mg Capsule PO 40 mg DAILY ELISEO Administration Furosemide 40 mg 09/11/20 18:00 Furosemide 40 Mg Tablet PO BID@0900,1800 [facility] Protocol Gabapentin 400 mg 09/03/20 21:00 09/11/20 14:58 Gabapentin 400 Mg Capsule PO 400 mg TID ELISEO Administration Magnesium Oxide 400 mg 09/05/20 17:30 09/11/20 08:57 Magnesium Oxide 400 Mg Tablet PO 400 mg BIDPC [facility] Administration Metoprolol Tartrate 12.5 mg 09/02/20 21:00 09/11/20 08:59 Metoprolol Tartrate 12.5 Mg Halftab PO Not Given BID [facility] Protocol Mirtazapine 7.5 mg 09/02/20 21:00 09/10/20 20:37 Mirtazapine 7.5 Mg Tablet PO 7.5 mg BEDTIME ELISEO Administration Omeprazole 40 mg 09/04/20 06:30 09/11/20 05:48 Omeprazole 40 Mg Capsule.Dr PO Not Given DAILY@0630 [facility] Ondansetron HCl 4 mg 09/02/20 16:54 09/10/20 10:57 Ondansetron Hcl 4 Mg/2 Ml Vial IVPUSH 4 mg Q8H PRN Administration Nausea Pharmacy Consult 1 each 09/02/20 16:54 Consult Rx Perform Med Rec MISCELLANE ONCE PRN Consult order Potassium Phos/Sodium Phos 1 packet 09/05/20 15:00 09/11/20 14:58 Sodium,Potassium Phosphates Powd.Pack PO 1 packet TID ELISEO Administration Quetiapine Fumarate 50 mg 09/03/20 16:49 09/10/20 20:36 Quetiapine Fumarate 50 Mg Tablet PO 50 mg DAILY PRN Administration agitation Tizanidine HCl 4 mg 09/03/20 16:55 09/10/20 20:36 Tizanidine Hcl 4 Mg Tablet PO 4 mg Q8H PRN Administration muscle spasticity Labs CBC & Chem 7: 09/10/20 07:48 09/10/20 07:48 Microbiology Microbiology Results: Microbiology 09/02/20 12:30 Blood - Venous Blood Culture - Final No growth after 5 days. 09/02/20 12:10 Blood - Venous Blood Culture - Final No growth after 5 days. 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 The patient's workup is concerning for pneumonia, question congestive heart failure versus generalized anasarca due to underlying cirrhosis/elevated troponin concerning for acute coronary syndrome with abnormal EKG. Acute respiratory failure with hypoxia due to pneumonia and acute diastolic heart failure, negative covid multiple times, possible atypical pna status post IV cefepime and IV doxycycline, currently on by mouth doxy, will attempt to gradually wean oxygen Patient evaluated by respiratory therapy for home O2 eval but patient oxygenati on dropped to 79 without oxygen therefore home O2 eval with ambulation not attempted Heart failure--likely acute on chronic diastolic heart failure, clinically better negative > 5liters, echo EF 55 to 60, will change IV Lasix 40 mg b.i.d. to by mouth Hypoalbuminemia, encourage protein intake Hypophosphatemia likely due to GI loss and decreased by mouth intake, status post IV phosphorus and on by mouth Neutra-Phos , follow phosphorus level Sepsis with pneumonia. There is is persistent leukocytosis but may be due to steroid.. No fever. Negative blood cultures. completed 5 days of Cefepime ad Doxy , continue on PO Doxy for 7 days to cover atypical pathogens Elevated troponin with chest pain. Troponin remains flat no further bout of chest pain continue aspirin and beta-gina Elevated bilirubin, both direct and indirect and elevated AST. h/o hep C, LFTs Improved significantly likely passive congestion with heart failure, no abdominal pain, no nausea, vomiting tolerating diet, follow LFTs hold on further workup History of anxiety and depression. Continue home Trazadone, seroquel and Ativan PRN Opiate use disorder patient restarted back on Suboxone Psych/suicidal ideation patient seen by in today and they do not find patient to be suicidal or Homocidal,they do not recommend any treatment and are okay for discharging him home Deep vein thrombosis prophylaxis. on Lovenox/inr 1.7. Patient is adamant that he wishes to leave hospital, patient is still requiring 4 L of oxygen lives in a retirement does not have any place to go, smokes and do drugs, and is very weak due to prolonged hospital stay for 9 days, strongly advised patient to stay at hosp. and find a stable place for discharge called son but received a phone message that no one is accepting calls from this number, there are no other family members to contact. spoke with manager social patient inform them that he will be living in a motel red carpet on further questioning he said he will be staying there only for 2 days therefore oxygen cannot be arranged Since patient smoke, no stable place to live and is requiring 4 L of oxygen at rest. Patient has been made aware of risk of leaving hospital with hypoxia including cardiac arrest, arrhythmia dizziness fall he understand the risk, case discussed in presence of RN Patient seen and evaluated by respiratory therapist as well as social work if patient leaves he will sign AMA His pharmacy [facility] is closed today therefore will send scripts of his cardiac medication to [facility] at [facility].
[2020-09-11] MEDS: Furosemide 40 MG TABLET PO (18:30)
[2020-09-11] MEDS: TiZANidine HCL 4 MG TABLET PO (18:30)
[2020-09-11] MEDS: QUEtiapine Fumarate 50 MG TABLET PO (18:30)
[2020-09-11] MEDS: Mirtazapine 7.5 MG TABLET PO (22:28)
[2020-09-12] VITALS (7 sets, daily range): BP systolic 99–124; BP diastolic 59–74; PULSE 71–84; RESP 16–25; TEMP 36.2–39.3; O2SAT 86–90
[2020-09-12] MEDS: TiZANidine HCL 4 MG TABLET PO ×3 (02:28→20:14)
[2020-09-12] MEDS: FLUoxetine HCl 20 MG CAPSULE 40 MG PO (08:54)
[2020-09-12] MEDS: Furosemide 40 MG TABLET PO ×2 (08:54→17:34)
[2020-09-12] MEDS: Magnesium Oxide 400 MG TABLET PO ×2 (08:54→17:34)
[2020-09-12] MEDS: Gabapentin 400 MG CAPSULE PO ×3 (08:54→20:15)
[2020-09-12] MEDS: Spironolactone 25 MG TABLET 50 MG PO (08:54)
[2020-09-12] MEDS: Sodium,Potassium Phosphates POWD.PACK 1 PACKET PO ×3 (08:55→20:16)
[2020-09-12] MEDS: Metoprolol Tartrate 12.5 MG HALFTAB PO (08:55)
--- NOTE | 2020-09-12 15:34 | P.PNIM_ITS ---
Subjective Subjective Date of Service: 09/12/20 Interval History: Patient feeling better still coughing denies shortness of breath decided to stay in house and not asking to leave AMA today, still requiring 4 L of oxygen with finger oximetry 89% admits of smoking 3-4 cigarettes a day but is willing to quit. ROS General no headache, no dizziness, no fever chills. CVS no chest pain, no palpitation. Respiratory cough , no sob. Gastrointestinal no nausea, no vomiting, no abdominal pain Physical Exam Vital Signs: Vital Signs: Last Vital Signs Temp 99.9 F 09/12/20 15:24 Pulse 73 09/12/20 15:24 Resp 16 09/12/20 15:24 BP 111/59 L 09/12/20 15:24 Pulse Ox 89 L 09/12/20 15:24 Body Mass Index 29.8 General appears weak, no acute distress. Neck supple no JVD. CVS regular rate rhythm, Respiratory lungs clear to auscultation, coarse breath sound at bases, no respiratory distress, no wheeze, no rhonchi. Gastrointestinal abdomen soft, nontender, bowel sounds audible, no guarding , no rigidity. Extremities no clubbing cyanosis, mild pitting edema. Neuro nonfocal , speech clear. Skin no rash Psych appropriate affect, cooperative Objective Data Current Medications Generic Name Dose Route Start Last Admin Trade Name Vivien PRN Reason Stop Dose Admin Buprenorphine/Naloxone 1 film 09/10/20 18:00 09/11/20 18:33 Buprenorphine/Naloxone 8/2 Mg Film SUBLINGUAL Not Given DAILY@1800 [facility] Doxycycline Hyclate 100 mg 09/11/20 22:00 09/12/20 08:54 Doxycycline Hyclate 100 Mg Tablet PO 100 mg Q12H ELISEO Administration Enoxaparin Sodium 40 mg 09/02/20 20:00 09/11/20 22:15 Enoxaparin Sodium 40 Mg/0.4 Ml Syringe SUBCUT Not Given Q24H ELISEO Fluoxetine HCl 40 mg 09/04/20 09:00 09/12/20 08:54 Fluoxetine Hcl 20 Mg Capsule PO 40 mg DAILY ELISEO Administration Furosemide 40 mg 09/11/20 18:00 09/12/20 08:54 Furosemide 40 Mg Tablet PO 40 mg BID@0900,1800 [facility] Administration Protocol Gabapentin 400 mg 09/03/20 21:00 09/12/20 14:40 Gabapentin 400 Mg Capsule PO 400 mg TID [facility] Administration Magnesium Oxide 400 mg 09/05/20 17:30 09/12/20 08:54 Magnesium Oxide 400 Mg Tablet PO 400 mg BIDPC [facility] Administration Mirtazapine 7.5 mg 09/02/20 21:00 09/11/20 22:28 Mirtazapine 7.5 Mg Tablet PO 7.5 mg BEDTIME ELISEO Administration Omeprazole 40 mg 09/04/20 06:30 09/12/20 05:43 Omeprazole 40 Mg Capsule.Dr PO Not Given DAILY@0630 [facility] Ondansetron HCl 4 mg 09/02/20 16:54 09/10/20 10:57 Ondansetron Hcl 4 Mg/2 Ml Vial IVPUSH 4 mg Q8H PRN Administration Nausea Pharmacy Consult 1 each 09/02/20 16:54 Consult Rx Perform Med Rec MISCELLANE ONCE PRN Consult order Potassium Phos/Sodium Phos 1 packet 09/05/20 15:00 09/12/20 14:40 Sodium,Potassium Phosphates Powd.Pack PO 1 packet TID [facility] Administration Quetiapine Fumarate 50 mg 09/03/20 16:49 09/11/20 18:30 Quetiapine Fumarate 50 Mg Tablet PO 50 mg DAILY PRN Administration agitation Spironolactone 50 mg 09/12/20 09:00 09/12/20 08:54 Spironolactone 25 Mg Tablet PO 50 mg DAILY [facility] Administration Protocol Tizanidine HCl 4 mg 09/03/20 16:55 09/12/20 11:17 Tizanidine Hcl 4 Mg Tablet PO 4 mg Q8H PRN Administration muscle spasticity Labs CBC & Chem 7: 09/10/20 07:48 09/10/20 07:48 Microbiology Microbiology Results: Microbiology 09/02/20 12:30 Blood - Venous Blood Culture - Final No growth after 5 days. 09/02/20 12:10 Blood - Venous Blood Culture - Final No growth after 5 days. Assessment and Plan (1) Acute on chronic right heart failure: Status: Acute (2) Pulmonary hypertension: Status: Acute (3) Non-rheumatic tricuspid valve insufficiency: Status: Acute (4) Pneumonia: Status: Acute (5) Opioid use disorder, moderate, in controlled environment: Status: Acute (6) Acute respiratory failure with hypoxia: Status: Acute (7) Elevated troponin: Status: Acute (8) Bilateral edema of lower extremity: Status: Acute (9) Anasarca: Status: Acute (10) Transaminitis: Status: Acute Assessment and Plan: 60-year-old gentleman with known history of cirrhosis related to hepatitis C, history of peripheral neuropathy and diet-controlled diabetes, who presented to [facility] due to worsening bilateral lower extremity edema,shortness of breath and chest pain with exertion, relieved with rest. The patient's workup is concerning for pneumonia, question congestive heart failure versus generalized anasarca due to underlying cirrhosis/elevated troponin concerning for acute coronary syndrome with abnormal EKG. Acute respiratory failure with hypoxia due to pneumonia and acute diastolic heart failure, negative covid multiple times, possible atypical pna status post IV cefepime and IV doxycycline, currently on by mouth doxy, continue to require 4 L of oxygen at rest, will repeat chest x-ray at a.m. encourage out of to chair and incentive spirometry Patient evaluated by respiratory therapy for home O2 eval but patient oxygenation dropped to 79 without oxygen at rest, therefore home O2 eval with ambulation not attempted Will gradually wean oxygen since patient is homeless and smokes therefore difficult to arrange for home O2, will talk to patient regarding rehab placement Heart failure--likely acute on chronic diastolic heart failure, clinically better negative > 5liters, echo EF 55 to 60, s/p IV Lasix 40 mg b.i.d. transition to by mouth on 09/11 Hypoalbuminemia, encourage protein intake Hypophosphatemia likely due to GI loss and decreased by mouth intake, status post IV phosphorus and on by mouth Neutra-Phos , follow phosphorus level Sepsis with pneumonia. persistent leukocytosis may be due to steroid.. No fever. Negative blood cultures. completed 5 days of Cefepime and Doxy , continue PO Doxy day2/7 to cover atypical pathogens Elevated troponin with chest pain. Troponin remains flat no further bout of chest pain echo showed no wall motion abnormality will continue aspirin and DC metoprolol due to low BP Elevated bilirubin, both direct and indirect and elevated AST. h/o hep C, LFTs Improved significantly likely passive congestion with heart failure, no abdominal pain, no nausea, vomiting tolerating diet, follow LFTs hold on further workup History of anxiety and depression. Continue home Trazadone, seroquel and Ativan PRN Opiate use disorder patient restarted back on Suboxone Psych/suicidal ideation patient seen by N they did not find patient to be suicidal or Homocidal,they do not recommend any treatment and are okay for dis charging him home Deep vein thrombosis prophylaxis. on Lovenox/inr 1.7.
[2020-09-12] MEDS: QUEtiapine Fumarate 50 MG TABLET PO (17:33)
[2020-09-12] MEDS: Mirtazapine 7.5 MG TABLET PO (20:15)
[2020-09-12] MEDS: Enoxaparin Sodium 40 MG/0.4 ML SYRINGE SUBCUT (20:16)
[2020-09-13] VITALS (7 sets, daily range): BP systolic 95–130; BP diastolic 51–65; PULSE 70–96; RESP 18–20; TEMP 36.4–37.7; O2SAT 87–97
[2020-09-13] MEDS: TiZANidine HCL 4 MG TABLET PO ×2 (06:12→16:31)
[2020-09-13] MEDS: Omeprazole 40 MG CAPSULE.DR PO (06:12)
[2020-09-13 06:44] LABS: Basophils Absolute Auto 0.1 X10*3/uL (0.0-0.2); Basophils Percent Auto 0.3 % (0-2); Eosinophils Absolute Auto 0.5 X10*3/uL (0.0-0.4); Eosinophils Percent Auto 1.8 % (0-4); Hematocrit 34.1 % (42-52); Hemoglobin 11.6 g/dl (14.0-18.0); Imm Gran Abs Auto 0.27 X10*3/uL (0.00-0.03); Lymphocytes Absolute Auto 4.7 X10*3/uL (1.2-4.9); Lymphocytes Percent Auto 17.2 % (20-40); MANUAL DIFF FLAG SCAN; Mean Corpuscular Hemoglobin 31.2 pg (27.0-33.0); Mean Corpuscular Volume 91.7 fL (80-98); Mean Platelet Volume 11.6 fL (9.4-12.4); Monocytes Absolute Auto 3.9 X10*3/uL (0.1-1.2); Monocytes Percent Auto 14.1 % (2-11); Neutrophils Percent Auto 65.6 % (45-73); Platelet Count 336 X10*3/uL (160-400); Red Blood Count 3.72 X10*6/uL (4.60-5.80); Red Cell Distribution Width 20.5 % (11.0-16.0); SCAN SMEAR FLAG 1; White Blood Count 27.4 X10*3/uL (4.8-10.8)
[2020-09-13 07:12] LABS: SLIDE REVIEW VERIFIED
[2020-09-13 07:12] LABS: Anion Gap 14 (12-20); Blood Urea Nitrogen 15 mg/dL (9-16); Calcium 7.3 mg/dL (8.4-10.2); Carbon Dioxide 23 mmol/L (22-29); Chloride 101 mmol/L (96-108); Creatinine Clr Calc Pharmacy 155.5; Estimated Glomerular Filt Rate > 60; Glucose Random 80 mg/dL (60-115); Phosphorus 2.7 mg/dL (2.7-4.5); Sodium 133 mmol/L (135-145)
[2020-09-13] MEDS: QUEtiapine Fumarate 50 MG TABLET PO (09:17)
[2020-09-13] MEDS: Gabapentin 400 MG CAPSULE PO ×3 (09:17→20:47)
[2020-09-13] MEDS: FLUoxetine HCl 20 MG CAPSULE 40 MG PO (09:17)
[2020-09-13] MEDS: Magnesium Oxide 400 MG TABLET PO ×2 (09:17→16:32)
[2020-09-13] MEDS: Sodium,Potassium Phosphates POWD.PACK 1 PACKET PO ×3 (09:17→20:47)
--- NOTE | 2020-09-13 11:45 | MHC.CLN ---
F/U PT IS CONSUMING 100% DIET RX: 2GM NA-APPROPRIATE PT RECEIVING ENSURE TID AND KIMBERLY PROVIDING 1210KCALS, 65G PROTEIN WILL D/C R/T EXCELLENT PO INTAKE AND NO PRESSURE INJURIES FOLLOWING
--- NOTE | 2020-09-13 12:29 | P.PNIM_ITS ---
Subjective Subjective Date of Service: 09/13/20 Interval History: Patient feeling better this morning denies shortness of breath or cough although noted to have hypoxia finger oximetry dropped to 85% on 4 L therefore placed on 7 L and now 89-90% Patient is cooperative using incentive spirometry and willing to be out of bed to chair. ROS General no headache, no dizziness, no fever chills. CVS no chest pain, no palpitation. Respiratory cough , no sob. Gastrointestinal no nausea, no vomiting, no abdominal pain Physical Exam Vital Signs: Vital Signs: Last Vital Signs Temp 98.8 F 09/13/20 11:39 Pulse 88 09/13/20 11:39 Resp 20 09/13/20 11:39 BP 115/65 09/13/20 11:39 Pulse Ox 87 L 09/13/20 11:39 Body Mass Index 29.8 General appears weak, no acute distress. Neck supple no JVD. CVS regular rate rhythm, Respiratory lungs clear to auscultation, coarse breath sound at bases, no respiratory distress, no wheeze, no rhonchi. Gastrointestinal abdomen soft, nontender, bowel sounds audible, no guarding , no rigidity. Extremities no clubbing cyanosis, mild pitting edema persists. Neuro nonfocal , speech clear. Skin no rash Psych appropriate affect, cooperative Objective Data Current Medications Generic Name Dose Route Start Last Admin Trade Name Vivien PRN Reason Stop Dose Admin Buprenorphine/Naloxone 1 film 09/10/20 18:00 09/12/20 17:35 Buprenorphine/Naloxone 8/2 Mg Film SUBLINGUAL Not Given DAILY@1800 [facility] Doxycycline Hyclate 100 mg 09/11/20 22:00 09/13/20 09:17 Doxycycline Hyclate 100 Mg Tablet PO 100 mg Q12H ELISEO Administration Enoxaparin Sodium 40 mg 09/02/20 20:00 09/12/20 20:16 Enoxaparin Sodium 40 Mg/0.4 Ml Syringe SUBCUT 40 mg Q24H ELISEO Administration Fluoxetine HCl 40 mg 09/04/20 09:00 09/13/20 09:17 Fluoxetine Hcl 20 Mg Capsule PO 40 mg DAILY ELISEO Administration Furosemide 40 mg 09/11/20 18:00 09/13/20 08:52 Furosemide 40 Mg Tablet PO Not Given BID@0900,1800 [facility] Protocol Gabapentin 400 mg 09/03/20 21:00 09/13/20 09:17 Gabapentin 400 Mg Capsule PO 400 mg TID ELISEO Administration Magnesium Oxide 400 mg 09/05/20 17:30 09/13/20 09:17 Magnesium Oxide 400 Mg Tablet PO 400 mg BIDPC ELISEO Administration Mirtazapine 7.5 mg 09/02/20 21:00 09/12/20 20:15 Mirtazapine 7.5 Mg Tablet PO 7.5 mg BEDTIME ELISEO Administration Omeprazole 40 mg 09/04/20 06:30 09/13/20 06:12 Omeprazole 40 Mg Capsule. PO 40 mg DAILY@0630 ELISEO Administration Ondansetron HCl 4 mg 09/02/20 16:54 09/10/20 10:57 Ondansetron Hcl 4 Mg/2 Ml Vial IVPUSH 4 mg Q8H PRN Administration Nausea Pharmacy Consult 1 each 09/02/20 16:54 Consult Rx Perform Med Rec MISCELLANE ONCE PRN Consult order Potassium Phos/Sodium Phos 1 packet 09/05/20 15:00 09/13/20 09:17 Sodium,Potassium Phosphates Powd.Pack PO 1 packet TID ELISEO Administration Quetiapine Fumarate 50 mg 09/03/20 16:49 09/13/20 09:17 Quetiapine Fumarate 50 Mg Tablet PO 50 mg DAILY PRN Administration agitation Spironolactone 50 mg 09/12/20 09:00 09/13/20 08:52 Spironolactone 25 Mg Tablet PO Not Given DAILY [facility] Protocol Tizanidine HCl 4 mg 09/03/20 16:55 09/13/20 06:12 Tizanidine Hcl 4 Mg Tablet PO 4 mg Q8H PRN Administration muscle spasticity Labs CBC & Chem 7: 09/13/20 06:17 09/13/20 06:18 Microbiology Microbiology Results: Microbiology 09/02/20 12:30 Blood - Venous Blood Culture - Final No growth after 5 days. 09/02/20 12:10 Blood - Venous Blood Culture - Final No growth after 5 days. Assessment and Plan (1) Acute respiratory failure with hypoxia: Status: Acute (2) Acute on chronic right heart failure: Status: Acute (3) Pneumonia: Status: Acute (4) Transaminitis: Status: Acute (5) Pulmonary hypertension: Status: Acute (6) Non-rheumatic tricuspid valve insufficiency: Status: Acute (7) Opioid use disorder, moderate, in controlled environment: Status: Acute (8) Elevated troponin: Status: Acute Assessment and Plan: 60-year-old gentleman with known history of cirrhosis related to hepatitis C, history of peripheral neuropathy and diet-controlled diabetes, who presented to [facility] due to worsening bilateral lower extremity edema,shortness of breath and chest pain with exertion, relieved with rest. The patient's workup is concerning for pneumonia, question congestive heart failure versus generalized anasarca due to underlying cirrhosis/elevated troponin concerning for acute coronary syndrome with abnormal EKG. Acute respiratory failure with hypoxia due to pneumonia and acute diastolic heart failure, negative covid multiple times, possible atypical pna status post IV cefepime and IV doxycycline, currently on by mouth doxy, Finger oximetry dropped down to 87 88% on 4 L currently on 7 L continue to require oxygen at rest, will repeat chest x-ray , question related to persistent CHF encourage out of to chair and incentive spirometry Patient evaluated by respiratory therapy for home O2 eval but patient oxyge nation dropped to 79 without oxygen at rest, therefore home O2 eval with ambulation not attempted Will gradually wean oxygen since patient is homeless and smokes therefore difficult to arrange for home O2 Patient agreed to go to rehab, case discussed with social psychologist will need PT eval, will hold PT eval today due to hypoxia, once oxygenation stable will attempt PT Heart failure--likely acute on chronic diastolic heart failure, clinically better negative > 5liters, echo EF 55 to 60, s/p IV Lasix 40 mg b.i.d. currently on by mouth Lasix, will change back to IV Lasix And follow chest x-ray. Hypoalbuminemia, encourage protein intake Hypophosphatemia likely due to GI loss and decreased by mouth intake, status post IV phosphorus and on by mouth Neutra-Phos , repeat phosphorus level selina lized to 2.7 Will change Neutra-Phos to b.i.d. Sepsis with pneumonia. Worsening leukocytosis now 27,000, No fever. Negative blood cultures. completed 5 days of Cefepime and Doxy , on PO Doxy day 3/7 to cover atypical pathogens, likely reactive Elevated troponin with chest pain. Troponin remains flat no further bout of chest pain echo showed no wall motion abnormality will continue aspirin and DC metoprolol due to low BP Elevated bilirubin, both direct and indirect and elevated AST. h/o hep C, LFTs Improved significantly likely passive congestion with heart failure, no abdominal pain, no nausea, vomiting tolerating diet, follow LFTs hold on further workup History of anxiety and depression. Continue home Trazadone, seroquel and Ativan PRN Opiate use disorder patient restarted back on Suboxone Psych/suicidal ideation patient seen by N they did not find patient to be suicidal or Homocidal,they do not recommend any treatment and are okay for discharging him home. Deep vein thrombosis prophylaxis. on Lovenox/inr 1.7.
[2020-09-13] MEDS: Furosemide 40 MG/4 ML VIAL IVPUSH (13:16)
[2020-09-13] MEDS: Piperacillin Sodium/Tazobactam 3.375 GM in 0.9 % Sodium Chloride 50 ML IV ×2 (16:31→20:55)
[2020-09-13] MEDS: LORazepam 0.5 MG TABLET PO (16:32)
[2020-09-13] MEDS: Mirtazapine 7.5 MG TABLET PO (20:47)
[2020-09-13] MEDS: Enoxaparin Sodium 40 MG/0.4 ML SYRINGE SUBCUT (20:48)
[2020-09-14] MEDS: LORazepam 0.5 MG TABLET PO ×4 (00:24→21:03)
[2020-09-14] MEDS: TiZANidine HCL 4 MG TABLET PO ×4 (00:24→22:41)
[2020-09-14 03:41] VITALS: BP 91/53; PULSE 68; RESP 20; TEMP 37.3; O2SAT 98
[2020-09-14] MEDS: Piperacillin Sodium/Tazobactam 3.375 GM in 0.9 % Sodium Chloride 50 ML IV ×4 (04:55→21:05)
[2020-09-14] MEDS: Omeprazole 40 MG CAPSULE.DR PO (06:27)
[2020-09-14 07:41] VITALS: BP 100/54; PULSE 80; RESP 24; TEMP 36.9; O2SAT 94
[2020-09-14] MEDS: Spironolactone 25 MG TABLET 50 MG PO (07:48)
[2020-09-14] MEDS: Sodium,Potassium Phosphates POWD.PACK 1 PACKET PO ×3 (07:48→21:05)
[2020-09-14] MEDS: Magnesium Oxide 400 MG TABLET PO ×2 (07:48→16:37)
[2020-09-14] MEDS: Gabapentin 400 MG CAPSULE PO ×3 (07:49→21:03)
[2020-09-14] MEDS: Furosemide 40 MG/4 ML VIAL IVPUSH (07:49)
[2020-09-14] MEDS: FLUoxetine HCl 20 MG CAPSULE 40 MG PO (07:49)
[2020-09-14 11:51] VITALS: BP 90/57; PULSE 72; RESP 24; TEMP 36.4; O2SAT 92
--- NOTE | 2020-09-14 15:34 | P.CONPL_ITS ---
History of Present Illness History of Present Illness Consult date: 09/14/20 Requesting physician: Primo Brown Chief complaint: Shortness of breath/ bilateral leg edema Narrative: 60-year-old gentleman, active 30+ pack-year smoker, with underlying history of hep C cirrhosis, diabetes mellitus, pulmonary hypertension likely secondary to left heart dysfunction, diastolic congestive heart failure, polysubstance abuse admitted on 09/02/2020 with progressive dyspnea. He has been treated for congestive heart failure with some improvement until 09/13/2020 when he developed worsening dyspnea and oxygen requirements. His CT chest angiogram has been negative for pulmonary emboli, but he has significant bilateral pulmonary edema versus diffuse ground-glass infiltrates. COVID-19 negative. Review of Systems Constitutional: Constitutional: Denies daytime sleepiness, Denies excessive sweating, Denies fatigue, Denies fever(s), Denies lethargy, Denies malaise, Denies night sweats, Denies snoring and Denies weight loss Eyes: Eyes: Denies blurry vision and Denies itchy eyes ENT: Denies nasal congestion, Denies post nasal drip, Denies sinus pain, Denies sinus pressure and Denies other ( Thrush) Cardiovascular: Cardiovascular: Denies chest pain, Reports pedal edema, Report s dyspnea, Reports orthopnea and Denies paroxysmal nocturnal dyspnea Respiratory: Respiratory: Denies cough, Denies hemoptysis, Denies excessive phlegm production, Reports dyspnea, Denies snoring and Denies wheezing Gastrointestinal: Gastrointestinal: Denies abdominal pain and Denies heartburn Musculoskeletal: Musculoskeletal: Denies myalgias, Denies arthralgias and Denies joint swelling Integumentary/Breasts: Skin/Breast: Denies rash Neurologic: Denies memory loss and Denies seizure-like activity Psychiatric: Psychiatric: Denies abnormal sleep pattern, Denies anxiety and Denies memory loss Endocrine: Endocrine: Denies excessive sweating, Denies fatigue and Denies heat intolerance Hematologic/Lymphatic: Hematologic/Lymphatic: Denies easy bruising Allergic/Immunologic: Allergic/Immunologic: Denies itchy eyes, Denies seasonal rhinorrhea and Denies wheezing PMFSH Past Medical History Medical History (Updated 09/12/20 @ 15:38 by Andrew Miles MD) Anxiety Cerebral microvascular disease Depression Diet-controlled diabetes mellitus 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 Hepatitis C virus HTN (hypertension) Liver cirrhosis Major depress dis, severe Major depression in partial remission Neuropathy Opioid use disorder, moderate, in controlled environment Physical deconditioning PTSD (post-traumatic stress disorder) Substance abuse Suicidal ideations Venous stasis dermatitis Family History Family History Father Diabetes Family history: reviewed and not pertinent Surgical History Surgical History H/O splenectomy Hx of cholecystectomy S/P correction of deviated nasal septum Social History Social History Household Members: None Housing: Homeless Do you presently have visiting nurse or other home services: No Alcohol intake: former Smoking Status: Current every day smoker Tobacco Type: Cigarette Packs Per Day: 1 Cigarettes Per Day: 3 Years Smoked: 40 Smoked in Last 30 Days: Yes Patient Interested in Nicotine Replacement: Yes Patient Given Instructions on How to Stop Smoking: No Second Hand Smoke Exposure: Yes Use of substances other than those prescribed or required for medical reasons: Yes Substance Use Type: Opiates Substance Use Frequency: Daily Last Used Substance: Just Prior to Admission Currently Displaying Signs/Symptoms of Drug Intoxication Withdrawal: No Any prior treatment program specific to substance use: Yes Have you been hit, kicked, punched, or otherwise hurt by someone within the past year? If so, by whom?: No Do you feel safe in your current relationship?: No Current Relationship Is there a partner from a previous relationship who is making you feel unsafe now?: No Advance Directives: No Advance Directives Information Provided: No Suicidal Behavior: History of suicide attemps Current/Past Psychiatric Disorders: PTSD You Symptoms: Impulsivity Access to Firearms: No Do you have thoughts of harming others: None Do you have a plan to hurt others: No Plan Recently lost weight without trying: Yes service: Yes Current occupational status: unemployed Sexual orientation: Straight/Heterosexual Meds Allergies Allergy/AdvReac Type Severity Reaction Status Date / Time acetaminophen [From TYLENOL] Allergy Unknown UNK Verified 08/14/20 23:59 codeine [CODEINE] Allergy Unknown RASH Verified 08/14/20 23:59 pneumococcal vaccine Allergy Unknown PARALYSIS Verified 08/14/20 23:59 [PNEUMOCOCCAL VACCINE] tuberculin, purified protein Allergy Unknown RASH Verified 08/14/20 23:59 deriva [TUBERCULIN, PURIFIED PROTEIN DERIVA] venlafaxine [From EFFEXOR] AdvReac Unknown UNKNOWN Verified 08/14/20 23:59 Active Medications: Current Medications Generic Name Dose Route Start Last Admin Trade Name Freq PRN Reason Stop Dose Admin Buprenorphine/Naloxone 1 film 09/10/20 18:00 09/13/20 17:10 Buprenorphine/Naloxone 8/2 Mg Film SUBLINGUAL Not Given DAILY@1800 ELISEO Doxycycline Hyclate 100 mg 09/11/20 22:00 09/14/20 11:28 Doxycycline Hyclate 100 Mg Tablet PO 100 mg Q12H ELISEO Administration Enoxaparin Sodium 40 mg 09/02/20 20:00 09/13/20 20:48 Enoxaparin Sodium 40 Mg/0.4 Ml Syringe SUBCUT 40 mg Q24H ELISEO Administration Fluoxetine HCl 40 mg 09/04/20 09:00 09/14/20 07:49 Fluoxetine Hcl 20 Mg Capsule PO 40 mg DAILY ELISEO Administration Furosemide 40 mg 09/13/20 12:45 09/14/20 07:49 Furosemide 40 Mg/4 Ml Vial IVPUSH 40 mg DAILY ELISEO Administration Protocol Gabapentin 400 mg 09/03/20 21:00 09/14/20 15:10 Gabapentin 400 Mg Capsule PO 400 mg TID ELISEO Administration Piperacillin Sod/Tazobactam 50 mls @ 100 mls/hr 09/13/20 16:00 09/14/20 12:48 Sod 3.375 gm/ Sodium Chloride IV Infused Q6H ELISEO Infusion Lorazepam 0.5 mg 09/13/20 16:19 09/14/20 15:10 Lorazepam 0.5 Mg Tablet PO 0.5 mg Q8H PRN Administration Anxiety Magnesium Oxide 400 mg 09/05/20 17:30 09/14/20 07:48 Magnesium Oxide 400 Mg Tablet PO 400 mg BIDPC ELISEO Administration Mirtazapine 7.5 mg 09/02/20 21:00 09/13/20 20:47 Mirtazapine 7.5 Mg Tablet PO 7.5 mg BEDTIME ELISEO Administration Omeprazole 40 mg 09/04/20 06:30 09/14/20 06:27 Omeprazole 40 Mg Capsule.Dr PO 40 mg DAILY@0630 ELISEO Administration Ondansetron HCl 4 mg 09/02/20 16:54 09/10/20 10:57 Ondansetron Hcl 4 Mg/2 Ml Vial IVPUSH 4 mg Q8H PRN Administration Nausea Pharmacy Consult 1 each 09/02/20 16:54 Consult Rx Perform Med Rec MISCELLANE ONCE PRN Consult order Potassium Phos/Sodium Phos 1 packet 09/05/20 15:00 09/14/20 15:10 Sodium,Potassium Phosphates Powd.Pack PO 1 packet TID ELISEO Administration Quetiapine Fumarate 50 mg 09/03/20 16:49 09/13/20 09:17 Quetiapine Fumarate 50 Mg Tablet PO 50 mg DAILY PRN Administration agitation Spironolactone 50 mg 09/12/20 09:00 09/14/20 07:48 Spironolactone 25 Mg Tablet PO 50 mg DAILY ELISEO Administration Protocol Tizanidine HCl 4 mg 09/03/20 16:55 09/14/20 15:10 Tizanidine Hcl 4 Mg Tablet PO 4 mg Q8H PRN Administration muscle spasticity Home Medications Medication Instructions Recorded Confirmed Last Taken Type [id number]-[id number] acid 1 tab PO DAILY 06/29/20 09/02/20 Unknown History [Certavite-Antioxidant] buprenorphine-naloxone [Suboxone] film SUBLINGUAL DAILY 09/02/20 Unknown History Physical Exam Vital Signs: Vital Signs: Last Vital Signs Temp 97.6 F 09/14/20 11:51 Pulse 72 09/14/20 11:51 Resp 24 H 09/14/20 11:51 BP 90/57 L 09/14/20 11:51 Pulse Ox 92 09/14/20 11:51 Body Mass Index 29.8 Const: General: no acute distress, alert and awake Eyes: Sclerae: sclerae normal EOM: EOMs intact bilaterally Neck: Neck: Yes no lymphadenopathy, Yes trachea midline and Yes supple Resp: Effort & Inspection: normal respiratory effort and no respiratory dist ress Auscultation: crackles (Diffuse bilateral) Cardio: Rate: regular rate Rhythm: regular rhythm Heart sounds: no gallops, no murmurs and no rubs GI: Palpation (GI): Soft to palpation and Other GI palpation findings present ( Nontender) Auscultation: normal bowel sounds Extrem: General: No clubbing, No cyanosis and Yes pedal edema (1+ bilateral) Results Laboratory Findings CBC and BMP: 09/13/20 06:17 09/13/20 06:18 ABG, PT/INR, D-dimer: PT/INR, D-dimer PT 20.1 SEC (10.8-13.0) H D 09/02/20 12:10 INR 1.7 (0.9-1.1) H 09/02/20 12:10 D-Dimer [id number] NG/ML 09/05/20 06:15 Abnormal lab findings: Abnormal Labs 09/02/20 09/02/20 09/02/20 12:10 12:10 12:10 WBC 13.1 H RBC 3.41 L Hgb 10.5 L Hct 32.0 L RDW 21.0 H Plt Count 145 L Immature Gran % (Auto) 0.7 H Neut % (Auto) 79.5 H Lymph % (Auto) 10.[address] [facility] % (Auto) Lymph # (Auto) [facility] # (Auto) Eos # (Auto) Abs Immat Gran (auto) 0.09 H Absolute Neuts (auto) 10.5 H Absolute Nucleated RBC 0.290 H Nucleated RBC % (auto) 2.2 H PT INR VBG pH VBG HCO3 Sodium Carbon Dioxide Anion Gap BUN 35 H D Random Glucose Lactic Acid 2.5 H* Lactic Acid Fup @ 2Hr Calcium 8.3 L Phosphorus Total Bilirubin 4.8 H Direct Bilirubin 3.3 H AST 54 H Alkaline Phosphatase Lactate Dehydrogenase Total Creatine Kinase Troponin I High Sens C-Reactive Protein B-Natriuretic Peptide Total Protein 6.4 L Albumin 2.7 L 09/02/20 09/02/20 09/02/20 12:10 12:10 12:10 WBC RBC Hgb Hct RDW Plt Count Immature Gran % (Auto) Neut % (Auto) Lymph % (Auto) [facility] % (Auto) Lymph # (Auto) [facility] # (Auto) Eos # (Auto) Abs Immat Gran (auto) Absolute Neuts (auto) Absolute Nucleated RBC Nucleated RBC % (auto) PT 20.1 H D INR 1.7 H VBG pH VBG HCO3 Sodium Carbon Dioxide Anion Gap BUN Random Glucose Lactic Acid Lactic Acid Fup @ 2Hr Calcium Phosphorus Total Bilirubin Direct Bilirubin AST Alkaline Phosphatase Lactate Dehydrogenase Total Creatine Kinase Troponin I High Sens 58.4 H D C-Reactive Protein B-Natriuretic Peptide 1389 H Total Protein Albumin 09/02/20 09/02/20 09/03/20 14:39 17:58 05:48 WBC 15.0 H RBC 3.41 L Hgb 10.3 L Hct 31.6 L RDW 21.2 H Plt Count 117 L Immature Gran % (Auto) 0.9 H Neut % (Auto) 86.4 H Lymph % (Auto) 7.[address] % (Auto) Lymph # (Auto) [facility] # (Auto) Eos # (Auto) Abs Immat Gran (auto) 0.14 H Absolute Neuts (auto) 13.0 H Absolute Nucleated RBC 0.530 H Nucleated RBC % (auto) 3.5 H PT INR VBG pH VBG HCO3 Sodium Carbon Dioxide Anion Gap BUN Random Glucose Lactic Acid Lactic Acid Fup @ 2Hr 2.2 H* Calcium Phosphorus Total Bilirubin Direct Bilirubin AST Alkaline Phosphatase Lactate Dehydrogenase Total Creatine Kinase Troponin I High Sens 58.5 H C-Reactive Protein B-Natriuretic Peptide Total Protein Albumin 09/03/20 09/03/20 09/04/20 05:48 05:48 06:33 WBC 20.8 H RBC 3.56 L Hgb 11.0 L Hct 33.0 L RDW 21.8 H Plt Count 102 L Immature Gran % (Auto) 1.2 H Neut % (Auto) 87.8 H Lymph % (Auto) 6.[address] % (Auto) Lymph # (Auto) [facility] # (Auto) Eos # (Auto) Abs Immat Gran (auto) 0.25 H Absolute Neuts (auto) 18.3 H Absolute Nucleated RBC 0.780 H Nucleated RBC % (auto) 3.7 H PT INR VBG pH VBG HCO3 Sodium Carbon Dioxide Anion Gap BUN 41 H Random Glucose 130 H Lactic Acid Lactic Acid Fup @ 2Hr Calcium 8.1 L Phosphorus Total Bilirubin 3.3 H Direct Bilirubin 2.6 H AST 53 H Alkaline Phosphatase Lactate Dehydrogenase Total Creatine Kinase Troponin I High Sens C-Reactive Protein B-Natriuretic Peptide 1031 H Total Protein 6.3 L Albumin 2.5 L 09/04/20 09/04/20 09/04/20 06:33 06:33 11:23 WBC RBC Hgb Hct RDW Plt Count Immature Gran % (Auto) Neut % (Auto) Lymph % (Auto) [facility] % (Auto) Lymph # (Auto) [facility] # (Auto) Eos # (Auto) Abs Immat Gran (auto) Absolute Neuts (auto) Absolute Nucleated RBC Nucleated RBC % (auto) PT INR VBG pH VBG HCO3 34 H Sodium Carbon Dioxide Anion Gap 11 L BUN 45 H Random Glucose 130 H Lactic Acid Lactic Acid Fup @ 2Hr Calcium 8.0 L Phosphorus Total Bilirubin 2.0 H Direct Bilirubin 1.5 H AST 42 H Alkaline Phosphatase 129 H Lactate Dehydrogenase Total Creatine Kinase Troponin I High Sens C-Reactive Protein B-Natriuretic Peptide 836 H Total Protein 6.0 L Albumin 2.4 L 09/04/20 09/04/20 09/04/20 12:33 12:33 19:52 WBC 22.2 H RBC 3.96 L Hgb 12.1 L Hct 37.0 L RDW 22.0 H Plt Count 108 L Immature Gran % (Auto) 0.9 H Neut % (Auto) 87.5 H Lymph % (Auto) 7.[address] % (Auto) Lymph # (Auto) [facility] # (Auto) Eos # (Auto) Abs Immat Gran (auto) 0.20 H Absolute Neuts (auto) 19.4 H Absolute Nucleated RBC 0.790 H Nucleated RBC % (auto) 3.6 H PT INR VBG pH 7.45 H VBG HCO3 34 H Sodium Carbon Dioxide Anion Gap BUN Random Glucose Lactic Acid Lactic Acid Fup @ 2Hr Calcium Phosphorus 2.0 L Total Bilirubin Direct Bilirubin AST Alkaline Phosphatase Lactate Dehydrogenase 762 H Total Creatine Kinase 31 L Troponin I High Sens C-Reactive Protein 7.96 H B-Natriuretic Peptide Total Protein Albumin 09/05/20 09/05/20 09/06/20 06:15 06:15 05:35 WBC 21.2 H RBC 3.75 L Hgb 11.6 L Hct 35.2 L RDW 22.5 H Plt Count 104 L Immature Gran % (Auto) 1.4 H Neut % (Auto) 90.0 H Lymph % (Auto) 4.[address] % (Auto) Lymph # (Auto) 1.[address] # (Auto) Eos # (Auto) Abs Immat Gran (auto) 0.30 H Absolute Neuts (auto) 19.1 H Absolute Nucleated RBC 0.600 H Nucleated RBC % (auto) 2.8 H PT INR VBG pH VBG HCO3 Sodium Carbon Dioxide 32 H 31 H Anion Gap 11 L BUN 34 H 30 H Random Glucose 167 H D 173 H Lactic Acid Lactic Acid Fup @ 2Hr Calcium 8.0 L 7.3 L D Phosphorus 1.1 L 1.3 L Total Bilirubin Direct Bilirubin 0.7 H AST Alkaline Phosphatase 149 H Lactate Dehydrogenase 664 H Total Creatine Kinase 17 L D Troponin I High Sens C-Reactive Protein 5.92 H B-Natriuretic Peptide Total Protein 5.2 L Albumin 1.9 L D 09/06/20 09/07/20 09/07/20 05:35 05:59 05:59 WBC 20.3 H RBC 3.83 L Hgb 11.7 L Hct 34.6 L RDW 22.1 H Plt Count 116 L Immature Gran % (Auto) 1.6 H Neut % (Auto) 82.8 H Lymph % (Auto) 8.[address] % (Auto) Lymph # (Auto) [facility] # (Auto) 1.5 H Eos # (Auto) Abs Immat Gran (auto) 0.33 H Absolute Neuts (auto) 16.8 H Absolute Nucleated RBC 0.130 H Nucleated RBC % (auto) 0.6 H PT INR VBG pH VBG HCO3 Sodium Carbon Dioxide 32 H Anion Gap 10 L BUN 33 H Random Glucose 182 H Lactic Acid Lactic Acid Fup @ 2Hr Calcium 7.3 L Phosphorus 2.1 L Total Bilirubin Direct Bilirubin AST Alkaline Phosphatase Lactate Dehydrogenase Total Creatine Kinase Troponin I High Sens C-Reactive Protein B-Natriuretic Peptide 116 H Total Protein Albumin 09/10/20 09/10/20 09/13/20 07:48 07:48 06:17 WBC 18.5 H 27.4 H RBC 3.74 L 3.72 L Hgb 11.3 L 11.6 L Hct 33.8 L 34.1 L RDW 21.4 H 20.5 H Plt Count Immature Gran % (Auto) 1.0 H Neut % (Auto) Lymph % (Auto) 17.[address] % (Auto) 14.1 H Lymph # (Auto) [facility] # (Auto) 3.9 H Eos # (Auto) 0.5 H Abs Immat Gran (auto) 0.27 H Absolute Neuts (auto) 18.0 H Absolute Nucleated RBC Nucleated RBC % (auto) PT INR VBG pH VBG HCO3 Sodium Carbon Dioxide 30 H Anion Gap 8 L BUN 19 H Random Glucose Lactic Acid Lactic Acid Fup @ 2Hr Calcium 6.9 L Phosphorus Total Bilirubin Direct Bilirubin AST Alkaline Phosphatase Lactate Dehydrogenase Total Creatine Kinase Troponin I High Sens C-Reactive Protein B-Natriuretic Peptide Total Protein Albumin 09/13/20 06:18 WBC RBC Hgb Hct RDW Plt Count Immature Gran % (Auto) Neut % (Auto) Lymph % (Auto) [facility] % (Auto) Lymph # (Auto) [facility] # (Auto) Eos # (Auto) Abs Immat Gran (auto) Absolute Neuts (auto) Absolute Nucleated RBC Nucleated RBC % (auto) PT INR VBG pH VBG HCO3 Sodium 133 L Carbon Dioxide Anion Gap BUN Random Glucose Lactic Acid Lactic Acid Fup @ 2Hr Calcium 7.3 L Phosphorus Total Bilirubin Direct Bilirubin AST Alkaline Phosphatase Lactate Dehydrogenase Total Creatine Kinase Troponin I High Sens C-Reactive Protein B-Natriuretic Peptide Total Protein Albumin Microbiology: Microbiology 09/02/20 12:30 Blood - Venous Blood Culture - Final No growth after 5 days. 09/02/20 12:10 Blood - Venous Blood Culture - Final No growth after 5 days. Assessment and Plan (1) Acute respiratory failure with hypoxia: Status: Acute Impression: Acute hypoxic respiratory failure likely secondary to underlying acute on chronic diastolic heart failure exacerbated by hypoalbuminemia and 3rd spacing, though an interstitial lung disease secondary to substance abuse is also in differential. Recommendation: Would consider albumin supplementation within next 24 hours and further diuresis. If fails to improve, will consider high-dose corticosteroid therapy. (2) Acute diastolic heart failure: Status: Acute (3) Pulmonary hypertension: Status: Acute
[2020-09-14 16:00] VITALS: BP 104/55; PULSE 76; RESP 28; TEMP 37.2; O2SAT 91
--- NOTE | 2020-09-14 16:09 | HO.PM.IMPN ---
Subjective Subjective Date of Service: 09/26/20 Interval History: Patient desaturated alot and and is back on non-rebreather and sating just around 92. He is edematous and likely has low albumin state ROS General no headache, no dizziness, no fever chills. CVS no chest pain, no palpitation. Respiratory cough , no sob. Gastrointestinal no nausea, no vomiting, no abdominal pain Review of Systems Gen: no fever Resp: +sob, no cough CV: no chest, no CALHOUN, no leg edema GI: No n/v, no abd pain Neuro: No confusion Psych: SI Physical Exam Vital Signs: Vital Signs: Last Vital Signs Temp 97.6 F 09/14/20 11:51 Pulse 72 09/14/20 11:51 Resp 24 H 09/14/20 11:51 BP 90/57 L 09/14/20 11:51 Pulse Ox 92 09/14/20 11:51 Body Mass Index 29.8 General: AO X 3, no acute distress Resp: CTA bilateral, 2 + leg edama CVS: S1,S2,RRR GI: +BS, NT, no distention Skin: No rash Neuro: motor grossly intact Psych: appropriate affect Objective Data Current Medications Generic Name Dose Route Start Last Admin Trade Name Freq PRN Reason Stop Dose Admin Buprenorphine/Naloxone 1 film 09/10/20 18:00 09/13/20 17:10 Buprenorphine/Naloxone 8/2 Mg Film SUBLINGUAL Not Given DAILY@1800 ELISEO Doxycycline Hyclate 100 mg 09/11/20 22:00 09/14/20 11:28 Doxycycline Hyclate 100 Mg Tablet PO 100 mg Q12H ELISEO Administration Enoxaparin Sodium 40 mg 09/02/20 20:00 09/13/20 20:48 Enoxaparin Sodium 40 Mg/0.4 Ml Syringe SUBCUT 40 mg Q24H ELISEO Administration Fluoxetine HCl 40 mg 09/04/20 09:00 09/14/20 07:49 Fluoxetine Hcl 20 Mg Capsule PO 40 mg DAILY ELISEO Administration Furosemide 40 mg 09/13/20 12:45 09/14/20 07:49 Furosemide 40 Mg/4 Ml Vial IVPUSH 40 mg DAILY ELISEO Administration Protocol Gabapentin 400 mg 09/03/20 21:00 09/14/20 15:10 Gabapentin 400 Mg Capsule PO 400 mg TID ELISEO Administration Piperacillin Sod/Tazobactam 50 mls @ 100 mls/hr 09/13/20 16:00 09/14/20 12:48 Sod 3.375 gm/ Sodium Chloride IV Infused Q6H ELISEO Infusion Lorazepam 0.5 mg 09/13/20 16:19 09/14/20 15:10 Lorazepam 0.5 Mg Tablet PO 0.5 mg Q8H PRN Administration Anxiety Magnesium Oxide 400 mg 09/05/20 17:30 09/14/20 07:48 Magnesium Oxide 400 Mg Tablet PO 400 mg BIDPC ELISEO Administration Mirtazapine 7.5 mg 09/02/20 21:00 09/13/20 20:47 Mirtazapine 7.5 Mg Tablet PO 7.5 mg BEDTIME ELISEO Administration Omeprazole 40 mg 09/04/20 06:30 09/14/20 06:27 Omeprazole 40 Mg Capsule.Dr PO 40 mg DAILY@0630 ELISEO Administration Ondansetron HCl 4 mg 09/02/20 16:54 09/10/20 10:57 Ondansetron Hcl 4 Mg/2 Ml Vial IVPUSH 4 mg Q8H PRN Administration Nausea Pharmacy Consult 1 each 09/02/20 16:54 Consult Rx Perform Med Rec MISCELLANE ONCE PRN Consult order Potassium Phos/Sodium Phos 1 packet 09/05/20 15:00 09/14/20 15:10 Sodium,Potassium Phosphates Powd.Pack PO 1 packet TID ELISEO Administration Quetiapine Fumarate 50 mg 09/03/20 16:49 09/13/20 09:17 Quetiapine Fumarate 50 Mg Tablet PO 50 mg DAILY PRN Administration agitation Spironolactone 50 mg 09/12/20 09:00 09/14/20 07:48 Spironolactone 25 Mg Tablet PO 50 mg DAILY ELISEO Administration Protocol Tizanidine HCl 4 mg 09/03/20 16:55 09/14/20 15:10 Tizanidine Hcl 4 Mg Tablet PO 4 mg Q8H PRN Administration muscle spasticity Labs CBC & Chem 7: 09/25/20 05:11 09/25/20 05:11 Microbiology Microbiology Results: Microbiology 09/02/20 12:30 Blood - Venous Blood Culture - Final No growth after 5 days. 09/02/20 12:10 Blood - Venous Blood Culture - Final No growth after 5 days. Assessment and Plan (1) Acute respiratory failure with hypoxia: Status: Acute (2) Acute on chronic right heart failure: Status: Acute (3) Pneumonia: Status: Acute (4) Pulmonary hypertension: Status: Acute (5) Non-rheumatic tricuspid valve insufficiency: Status: Acute (6) Substance abuse: Status: Acute Assessment and Plan: 60-year-old gentleman with known history of cirrhosis related to hepatitis C, history of peripheral neuropathy and diet-controlled diabetes, who presented to [facility] due to worsening bilateral lower extremity edema,shortness of breath and chest pain with exertion, relieved with rest. The patient's workup is concerning for pneumonia, question congestive heart failure versus generalized anasarca due to underlying cirrhosis/elevated troponin concerning for acute coronary syndrome with abnormal EKG. Acute respiratory failure with hypoxia due to pneumonia and acute diastolic heart failure, negative covid multiple times, possible atypical pna -supportive care with O2, wean as juanpablo. He will need home O2 Heart failure--likely acute on chronic diastolic heart failure, he remain edematous, may not be mobilizing intravascular fluid, echo EF 55 to 60. Give albumin today and add diuretic tomorrow Hypoalbuminemia, IV albumin Hypophosphatemia likely due to GI loss and decreased by mouth intake, status post IV phosphorus and on by mouth Neutra-Phos , s/p replacement--check level tomorrow Sepsis with pneumonia. There is is persistent leukocytosis--etiology not clear. completed 5 days of Cefepime ad Doxy and now on IV Zosyn Elevated troponin with chest pain. Troponin remains flat no further bout of chest pain continue aspirin and beta-gina Elevated bilirubin, both direct and indirect and elevated AST. h/o hep C, LFTs are trending down , no abdominal pain, no nausea, vomiting tolerating diet, follow LFTs hold on further workup History of anxiety and depression. Continue home Trazadone, seroquel and Ativan PRN Opiate use disorder patient restarted on Suboxone Psych: SI, sitter, inpatient psych upon discharge Deep vein thrombosis prophylaxis. on Lovenox/inr 1.7.
[2020-09-14] MEDS: QUEtiapine Fumarate 50 MG TABLET PO (16:37)
[2020-09-14] MEDS: Albumin Human 25 % 100 ML IV ×2 (17:14→22:23)
[2020-09-14 19:54] VITALS: BP 97/55; PULSE 87; RESP 30; TEMP 36.2; O2SAT 91
[2020-09-14 20:33] LABS: Anion Gap 11 (12-20); Blood Urea Nitrogen 18 mg/dL (9-16); Calcium 7.4 mg/dL (8.4-10.2); Carbon Dioxide 26 mmol/L (22-29); Chloride 104 mmol/L (96-108); Creatinine Clr Calc Pharmacy 139.5; Estimated Glomerular Filt Rate > 60; Glucose Random 148 mg/dL (60-115); Potassium 4.3 mmol/L (3.3-5.1); Sodium 137 mmol/L (135-145)
[2020-09-14 20:34] LABS: Alanine Aminotransferase 19 U/L (0-40); Albumin Level 2.1 g/dL (3.5-5.0); Alkaline Phosphatase 100 U/L (39-117); Aspartate Amino Transferase 64 U/L (5-37); Bilirubin Direct 1.3 mg/dL (0.0-0.5); Bilirubin Total 2.1 mg/dL (0.0-1.0); Total Protein 5.6 g/dL (6.5-8.0)
[2020-09-14 20:40] LABS: B Type Natriuretic Peptide 493 pg/mL (<100)
[2020-09-14] MEDS: Mirtazapine 7.5 MG TABLET PO (21:03)
[2020-09-14] MEDS: Enoxaparin Sodium 40 MG/0.4 ML SYRINGE SUBCUT (21:06)
[2020-09-15] VITALS (29 sets, daily range): BP systolic 84–157; BP diastolic 47–94; PULSE 63–127; RESP 20–45; TEMP 36.4–37.7; O2SAT 73–96
--- NOTE | 2020-09-15 | ECG_ITS ---
Test Reason : CP Blood Pressure : / mmHG Vent. Rate : 110 BPM Atrial Rate : 110 BPM P-R Int : 100 ms QRS Dur : 076 ms QT Int : 374 ms P-R-T Axes : 000 036 045 degrees QTc Int : 506 ms Poor data quality Sinus tachycardia Nonspecific ST and T wave abnormality Prolonged QT Abnormal ECG When compared to the previous EKG of Poor data quality in current ECG precludes serial comparison Referred By: Shola Mcgovern Electronically Signed By:Drew Lawson
[2020-09-15] MEDS: LORazepam 0.5 MG TABLET PO (01:58)
[2020-09-15] MEDS: Morphine Sulfate 4 MG/ML CARTRIDGE IVPUSH (02:42)
[2020-09-15] MEDS: Furosemide 40 MG/4 ML VIAL IVPUSH ×2 (02:44→08:45)
--- NOTE | 2020-09-15 02:49 | PM.EVENT ---
Event Note Date of Service: 09/15/20 Event Note: Pt developed sudden onset chest pain and OSB with hypoxia. Chest pain is midsternal, heavy, non-radiating, associated with increased work of breathing. Pt O2 in the 80-83% with tachecardia and tachypnea. EKG ordered initially concerning for STEMI, discussed with cyber security manager, believes many artifacts, and not STEMI. Pending Troponin, Spoke to door frame assembler machine, will place pt on CPAP, increase lasix as pt has increased BNP and evidence of congestive HF. currently O2 is 84% on 100% CPAP, received 4 mg of IV morphine with resolution of chest pain, and 40 mg of IV lasix. awaiting ABG and troponin levels.
[2020-09-15 02:59] LABS: ABG Base Excess -0.9 mmol/L; ABG HCO3 24 mmol/L (22-26); ABG pCO2 41 mmHg (32-45); ABG pCO2 TC 41 mmHg (32-45); ABG pH 7.37 (7.35-7.45); ABG pH TC 7.37 (7.35-7.45); ABG pO2 47 mmHg (83-108); ABG pO2 TC 46 (83-108)
[2020-09-15 02:59] LABS: ABG Refer to POC result
[2020-09-15 03:09] LABS: Troponin-I High Sensitivity 9.2 ng/L (<3.5-35.0)
[2020-09-15] MEDS: Ibuprofen 400 MG TABLET PO (03:18)
[2020-09-15 03:22] LABS: COVID-19 Test Negative (Negative); IDNOW Serial# 9DD0AD1C
--- NOTE | 2020-09-15 03:37 | PC.NURSE ---
pt c/o chest pain around 0215, rapid response called, ekg done, vitals done, pt on 5L O2 via NC and non-rebreather with 02 sats in low 80's, 4 mg IV morphine ordered and given, 40 mg of IV lasix ordered and given, chest xray done, abg's drawn, pt put on bipap/cpap and O2 sat remains at 85%. decision was made to transfer pt to ICU, pt admitted to ICU at 0330.
[2020-09-15 03:45] LABS: Basophils Absolute Auto 0.1 X10*3/uL (0.0-0.2); Basophils Percent Auto 0.2 % (0-2); Eosinophils Percent Auto 0.1 % (0-4); Hematocrit 31.4 % (42-52); Hemoglobin 10.2 g/dl (14.0-18.0); Imm Gran Abs Auto 0.32 X10*3/uL (0.00-0.03); Imm Gran Pct Auto 1.1 % (0.0-0.4); Lymphocytes Absolute Auto 0.7 X10*3/uL (1.2-4.9); Lymphocytes Percent Auto 2.6 % (20-40); MANUAL DIFF FLAG SCAN; Mean Corpuscular HGB Conc 32.5 g/dl (31.0-36.0); Mean Corpuscular Hemoglobin 30.6 pg (27.0-33.0); Mean Corpuscular Volume 94.3 fL (80-98); Mean Platelet Volume 10.9 fL (9.4-12.4); Monocytes Absolute Auto 1.7 X10*3/uL (0.1-1.2); Neutrophils Absolute Auto 25.2 X10*3/uL (2.0-8.3); Platelet Count 309 X10*3/uL (160-400); Red Blood Count 3.33 X10*6/uL (4.60-5.80); SCAN SMEAR FLAG 1
[2020-09-15 03:48] LABS: SLIDE REVIEW VERIFIED
--- NOTE | 2020-09-15 03:54 | PM.EVENT ---
Event Note Date of Service: 09/15/20 Event Note: 60-year-old male, Past medical history of hep C cirrhosis, diabetes mellitus, pulmonary hypertension likely secondary to left heart dysfunction, diastolic congestive heart failure, smoker and polysubstance abuse admitted on hospital medicine 09/02/2020 with progressive dyspnea. He has been treated for congestive heart failure who overnight developed worsening dyspnea and hypoxia requiring CPAP support. Chest XRAY shows significant congestion. My assessment patient significantly tachypneic to the 40s, rhonchorous throughout, satting 83- 84% on cpap. He received 40 of lasix Plan: Will Switch to BIPAP Fentanyl to decrease resp rate Cont to assess for diuresing
[2020-09-15] MEDS: Albumin Human 25 % 100 ML IV ×2 (04:16→10:25)
[2020-09-15] MEDS: Piperacillin Sodium/Tazobactam 3.375 GM in 0.9 % Sodium Chloride 50 ML IV (04:16)
[2020-09-15 04:20] LABS: Lactic Acid 4.1 mmol/L (0.5-2.0)
--- NOTE | 2020-09-15 05:13 | PC.NURSE ---
Addendum entered by Shannan Walton RN 09/15/20 05:58: AT APPROX 0500, PT YELLING, CLIMBING OOB DEMANDING TO USE BATHROOM, IV REMOVED/RIPPING OFF BIPAP. PT DIAPHORETIC, RR 30s, SpO2 70s. PT EDUCATED. AGREEABLE TO WHITT CATHETER AND BIPAP. FAIR TOLERATION. NEW IV ACCESS OBTAINED. THERAPEUTIC COMMUNICATION OFFERED. RESTING COMFORTABLY AT THIS TIME. Original Note: PT TRANSFERRED TO ICU AT APPROX 0300 S/P SQUEEGEE OPERATOR ON IMC. UPON INITIAL ASSESSMENT- PT A&OX3, RR 30-40s, SpO2 80s, USING ACCESSORY MUSCLES TO BREATHE, LS WITH FINE CRACKLES. PLACED ON BIPAP RATE 12 20/8/100%. FENTANYL 50 MCG IVP GIVEN X1 WITH GOOD EFFECT FOR WOB. NSR ON TELE, HR 70-80s. SBP 90-100s. SpO2 GOAL > 88%. PT REFUSING WHITT CATHETER AT THIS TIME BUT ABLE TO VOID 150 ML IN URINAL, PREVIOUSLY BLADDER SCANNED FOR 265 MLS. PT EDUCATED AND AWARE OF PLAN OF CARE. INAPPROPRIATE AT TIMES BUT EASILY REORIENTED. UNKEMPT APPEARING- DRY SCALY SKIN, VENOUS STASIS TO BLE, +1 EDEMA, BRUISNG AND FUNGAL RASH NOTED TO GROIN/FOLDS. PLACED ON PREVALON AIR MATTRESS.
[2020-09-15 05:40] LABS: Reflex Lactate? Lactic Acid Added
[2020-09-15 06:05] LABS: Hemoglobin 9.9 g/dl (14.0-18.0); Mean Corpuscular Hemoglobin 31.2 pg (27.0-33.0); Mean Corpuscular Volume 94.6 fL (80-98); Mean Platelet Volume 10.8 fL (9.4-12.4); Platelet Count 294 X10*3/uL (160-400); Red Blood Count 3.17 X10*6/uL (4.60-5.80); Red Cell Distribution Width 21.2 % (11.0-16.0); White Blood Count 29.8 X10*3/uL (4.8-10.8)
[2020-09-15 06:33] LABS: ~Lactic Acid-LAB USE ONLY 4.1 mmol/L (0.5-2.0)
[2020-09-15 06:35] LABS: Anion Gap 16 (12-20); Blood Urea Nitrogen 19 mg/dL (9-16); Calcium 7.6 mg/dL (8.4-10.2); Carbon Dioxide 21 mmol/L (22-29); Chloride 104 mmol/L (96-108); Creatinine Clr Calc Pharmacy 129.9; Estimated Glomerular Filt Rate > 60; Glucose Random 135 mg/dL (60-115); Potassium 4.1 mmol/L (3.3-5.1); Sodium 137 mmol/L (135-145)
[2020-09-15 08:02] LABS: Reflex Lactate? 2 Y
[2020-09-15] MEDS: methylPREDNISolone Sod Succ 125 MG/2 ML VIAL 60 MG IVPUSH ×3 (08:45→20:56)
[2020-09-15 09:35] LABS: ~Lactic Acid-LAB USE ONLY 3.1 mmol/L (0.5-2.0)
[2020-09-15] MEDS: Furosemide 500 MG in Container,Empty 0 ML IVCONT (13:34)
[2020-09-15] MEDS: LORazepam 2 MG/ML VIAL 1 MG IVPUSH ×2 (13:39→20:56)
--- NOTE | 2020-09-15 13:54 | P.PNCC_ITS ---
Subjective Subjective Date of Service: 09/15/20 Interval History: 60-year-old gentleman, active 30+ pack-year smoker, with underlying history of hep C cirrhosis, diabetes mellitus, pulmonary hypertension likely secondary to left heart dysfunction, diastolic congestive heart failure, polysubstance abuse admitted on 09/02/2020 with progressive dyspnea. He has been treated for congestive heart failure with some improvement until 09/13/2020 when he developed worsening dyspnea and oxygen requirements. His CT chest angiogram has been negative for pulmonary emboli, but he has significant bilateral pulmonary edema versus diffuse ground-glass infiltrates. COVID-19 negative. Overnight on 09/14- patient with worsening hypoxemia requiring initiation of BiPAP support and transfer to intensive care unit. Titrated to CPAP this a.m.. Physical Exam Vital Signs: Vital Signs: Last Vital Signs Temp 97.6 F 09/15/20 12:00 Pulse 78 09/15/20 13:00 Resp 29 H 09/15/20 13:00 BP 115/69 09/15/20 13:00 Pulse Ox 95 09/15/20 13:00 Body Mass Index 29.8 Const: General: no acute distress, alert and awake Eyes: Sclerae: sclerae normal EOM: EOMs intact bilaterally Neck: Neck: Yes no lymphadenopathy, Yes trachea midline and Yes supple Resp: Effort & Inspection: normal respiratory effort (On CPAP) and no respiratory distress Auscultation: crackles (Diffuse bilateral) Cardio: Rate: regular rate Rhythm: regular rhythm Heart sounds: no gallops, no murmurs and no rubs GI: Palpation (GI): Soft to palpation and Other GI palpation findings present ( Nontender) Auscultation: normal bowel sounds Extrem: General: No clubbing, No cyanosis and Yes pedal edema (Trace bilateral) Objective Data Labs CBC & Chem 7: 09/15/20 05:59 09/15/20 05:59 Labs: Laboratory Results - last 24 hr 09/14/20 09/14/20 09/14/20 19:51 19:51 19:51 WBC RBC Hgb Hct MCV MCH MCHC RDW Plt Count MPV Immature Gran % (Auto) Neut % (Auto) Lymph % (Auto) Lucas % (Auto) Eos % (Auto) Baso % (Auto) Lymph # (Auto) Lucas # (Auto) Eos # (Auto) Baso # (Auto) Abs Immat Gran (auto) Absolute Neuts (auto) Absolute Nucleated RBC Nucleated RBC % (auto) Smear Tech's Comments O2 Saturation ABG pH at Pt Temp ABG pH (Temp Correct) ABG pCO2 at Pt Temp ABG pCO2 (Temp Corrct ABG pO2 at Pt Temp ABG pO2 (Temp Correct ABG HCO3 ABG Base Excess (Actual) Sodium 137 Potassium 4.3 Chloride 104 Carbon Dioxide 26 Anion Gap 11 L BUN 18 H Creatinine 0.68 Estim Creat Clear Calc 139.5 Estimated GFR > 60 Random Glucose 148 H D Lactic Acid Lactic Acid Fup @ 2Hr Lactic Acid Fup @ 4Hr Calcium 7.4 L Total Bilirubin 2.1 H Direct Bilirubin 1.3 H AST 64 H ALT 19 Alkaline Phosphatase 100 D Troponin I High Sens B-Natriuretic Peptide 493 H Total Protein 5.6 L Albumin 2.1 L COVID-19 (MARISELA) COVID-[facility] 09/15/20 09/15/20 09/15/20 02:35 02:47 02:51 WBC RBC Hgb Hct MCV MCH MCHC RDW Plt Count MPV Immature Gran % (Auto) Neut % (Auto) Lymph % (Auto) Lucas % (Auto) Eos % (Auto) Baso % (Auto) Lymph # (Auto) Lucas # (Auto) Eos # (Auto) Baso # (Auto) Abs Immat Gran (auto) Absolute Neuts (auto) Absolute Nucleated RBC Nucleated RBC % (auto) Smear Tech's Comments O2 Saturation 72.0 ABG pH at Pt Temp 7.37 ABG pH (Temp Correct) 7.37 ABG pCO2 at Pt Temp 41 ABG pCO2 (Temp Corrct 41 ABG pO2 at Pt Temp 47 L* ABG pO2 (Temp Correct 46 L* ABG HCO3 24 ABG Base Excess (Actual) -0.9 Sodium Potassium Chloride Carbon Dioxide Anion Gap BUN Creatinine Estim Creat Clear Calc Estimated GFR Random Glucose Lactic Acid Lactic Acid Fup @ 2Hr Lactic Acid Fup @ 4Hr Calcium Total Bilirubin Direct Bilirubin AST ALT Alkaline Phosphatase Troponin I High Sens 9.2 D B-Natriuretic Peptide Total Protein Albumin COVID-19 (MARISELA) Negative COVID[employer] Style See Note 09/15/20 09/15/20 09/15/20 03:34 03:34 05:59 WBC 28.0 H 29.8 H RBC 3.33 L 3.17 L Hgb 10.2 L 9.9 L Hct 31.4 L 30.0 L MCV 94.3 94.6 MCH 30.6 31.2 MCHC 32.5 33.0 RDW 21.0 H 21.2 H Plt Count 309 294 MPV 10.9 10.8 Immature Gran % (Auto) 1.1 H Neut % (Auto) 90.0 H Lymph % (Auto) 2.6 L Lucas % (Auto) 6.0 Eos % (Auto) 0.1 Baso % (Auto) 0.2 Lymph # (Auto) 0.7 L Lucas # (Auto) 1.7 H Eos # (Auto) 0.0 Baso # (Auto) 0.1 Abs Immat Gran (auto) 0.32 H Absolute Neuts (auto) 25.2 H Absolute Nucleated RBC 0.000 0.000 Nucleated RBC % (auto) 0.0 0.0 Smear Tech's Comments VERIFIED O2 Saturation ABG pH at Pt Temp ABG pH (Temp Correct) ABG pCO2 at Pt Temp ABG pCO2 (Temp Corrct ABG pO2 at Pt Temp ABG pO2 (Temp Correct ABG HCO3 ABG Base Excess (Actual) Sodium Potassium Chloride Carbon Dioxide Anion Gap BUN Creatinine Estim Creat Clear Calc Estimated GFR Random Glucose Lactic Acid 4.1 H* Lactic Acid Fup @ 2Hr Lactic Acid Fup @ 4Hr Calcium Total Bilirubin Direct Bilirubin AST ALT Alkaline Phosphatase Troponin I High Sens B-Natriuretic Peptide Total Protein Albumin COVID-19 (MARISELA) COVID-19 Clin [facility] 09/15/20 09/15/20 09/15/20 05:59 05:59 08:58 WBC RBC Hgb Hct MCV MCH MCHC RDW Plt Count MPV Immature Gran % (Auto) Neut % (Auto) Lymph % (Auto) Lucas % (Auto) Eos % (Auto) Baso % (Auto) Lymph # (Auto) Lucas # (Auto) Eos # (Auto) Baso # (Auto) Abs Immat Gran (auto) Absolute Neuts (auto) Absolute Nucleated RBC Nucleated RBC % (auto) Smear Tech's Comments O2 Saturation ABG pH at Pt Temp ABG pH (Temp Correct) ABG pCO2 at Pt Temp ABG pCO2 (Temp Corrct ABG pO2 at Pt Temp ABG pO2 (Temp Correct ABG HCO3 ABG Base Excess (Actual) Sodium 137 Potassium 4.1 Chloride 104 Carbon Dioxide 21 L Anion Gap 16 BUN 19 H Creatinine 0.73 Estim Creat Clear Calc 129.9 Estimated GFR > 60 Random Glucose 135 H Lactic Acid Lactic Acid Fup @ 2Hr 4.1 H* Lactic Acid Fup @ 4Hr 3.1 H* Calcium 7.6 L Total Bilirubin Direct Bilirubin AST ALT Alkaline Phosphatase Troponin I High Sens B-Natriuretic Peptide Total Protein Albumin COVID-19 (MARISELA) COVID-19 Clin Com Microbiology Microbiology Results: Microbiology 09/02/20 12:30 Blood - Venous Blood Culture - Final No growth after 5 days. 09/02/20 12:10 Blood - Venous Blood Culture - Final No growth after 5 days. Progress Note: A&P Assessment and plan (1) Acute on chronic right heart failure: Status: Acute Assessment and Plan: Assessment: 60-year-old gentleman with underlying multiple medical issues including hepatitis-C liver cirrhosis, congestive heart failure, hypoalbuminemia admitted with progressive dyspnea, now requiring noninvasive positive pressure ventilatory support Plan: Neuro: Underlying chronic microvascular cerebral disease. No acute issues at this time. Cardiac: Acute on chronic congestive heart failure. Cardiology service care appreciated. Continue with diuresis. Pulmonary: Acute hypoxic respiratory failure, likely multifactorial with contribution from underlying congestive heart failure, pulmonary hypertension likely secondary to left heart dysfunction, possible interstitial lung disease secondary to substance abuse, and possible PCP. Continue to titrate off noninvasive positive pressure ventilatory support as tolerated. Started on empiric Solu-Medrol and treatment Bactrim regimen. DVT study is negative, CT chest negative for pulmonary embolism. Renal: Continue with IV diuresis. Non oliguric. Continue to monitor renal indices and urine output. Endo: No acute issues. GI: Underlying liver cirrhosis secondary to hepatitis-C. ID: Empirically covered with Bactrim for possible PCP. Heme/Onc: No acute issues. Psych: No acute issues. Miscellaneous: Patient attempted to leave against medical advise while on CPAP with FiO2 of 100%. At this time, patient clearly lacks capacity to make reasonable medical decisions about his care. Prophylaxis: Lovenox Diet: Regular Critical care time spent: 60 minutes (2) Acute diastolic heart failure: Status: Acute (3) Pulmonary hypertension: Status: Acute (4) Acute respiratory failure with hypoxia: Status: Acute (5) Hepatitis C virus: Status: Inactive (6) Liver cirrhosis: Status: Inactive (7) Substance abuse: Status: Acute (8) HTN (hypertension): Status: Acute (9) Cerebral microvascular disease: Status: Acute Critical Care Time Critical Care Time (minutes): 60
--- NOTE | 2020-09-15 14:37 | MHC.CM.PN ---
Pt remains in ICU on CPAP support: BP low: pt receiving IV Albumin and diuresis. Pt is homeless residing in a hotel: Pt has been clinically accepted to [facility]: updates remitted today. CM will follow as pt may need a higher level of care if his respiratory status does not improve
--- NOTE | 2020-09-15 15:08 | PC.NURSE ---
Patient remains on CPAP 100%, 02 sat 90-91%. RR=28. Attempted to wean patient to high flow, and high flow with nonrebreather, unable to tolerate. IV lasix drip started at 5mg/hr, 0.5ml/hr. Patient tearful, anxious, stating i want to leave AMA, get me out of here . Let me sign the paper . Logging Tractor Operator Swamp at bedside to evaluate patient. Psych consult pending to deem competency in making his own medical decisions. 1mg IV ativan administered. Repositioned q2hrs.
--- NOTE | 2020-09-15 15:28 | MHC.CARE ---
1500: Met with pt at pt's request. Pt was feeling as though he wanted to leave the ICU and get a motel room for a few days. Spent some time with pt, providing counseling related to the way he was feeling and why. Pt is aware that his health will worsen considerably if he were to leave and could have long lasting repercussions. Pt stated that he does know what the best course of action for him is (Remaining in the hospital). Pt has been experiencing difficulty with having nothing to occupy his mind or time and has been spending his days ruminating.
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
[2020-09-15 18:44] LABS: VBG Base Excess 5.7 mmol/L; VBG HCO3 29 mmol/L (22-26); VBG pCO2 38 mmHg; VBG pH 7.49 (7.32-7.43); VBG pO2 43 mmHg
[2020-09-15 19:37] LABS: Venous Blood Gas Refer to POC result
[2020-09-15 19:38] LABS: Anion Gap 16 (12-20); Blood Urea Nitrogen 24 mg/dL (9-16); Calcium 8.5 mg/dL (8.4-10.2); Carbon Dioxide 26 mmol/L (22-29); Chloride 105 mmol/L (96-108); Creatinine Clr Calc Pharmacy 137.5; Estimated Glomerular Filt Rate > 60; Glucose Random 125 mg/dL (60-115); Potassium 4.5 mmol/L (3.3-5.1); Sodium 142 mmol/L (135-145)
[2020-09-15] MEDS: fentaNYL citrate/PF 100 MCG/2 ML VIAL 25 MCG IVPUSH (20:56)
[2020-09-15] MEDS: Enoxaparin Sodium 40 MG/0.4 ML SYRINGE SUBCUT (20:56)
[2020-09-15] MEDS: QUEtiapine Fumarate 50 MG TABLET PO (23:38)
[2020-09-15] MEDS: TiZANidine HCL 4 MG TABLET PO (23:38)
[2020-09-16] VITALS (35 sets, daily range): BP systolic 81–173; BP diastolic 44–97; PULSE 75–127; RESP 22–39; TEMP 35.4–36.8; O2SAT 64–97; BMI 29.8
[2020-09-16] MEDS: fentaNYL citrate/PF 100 MCG/2 ML VIAL 50 MCG IVPUSH (02:35)
[2020-09-16] MEDS: Ketamine HCl 500 MG/5 ML VIAL 100 MG IV (02:48)
[2020-09-16] MEDS: propofoL 200 MG/20 ML VIAL 100 MG IVPUSH (02:50)
[2020-09-16] MEDS: propofoL 1,000 MG/100 ML VIAL 11.98 MG IVCONT (02:52)
[2020-09-16] MEDS: fentaNYL citrate/NS 1,000 MCG/100 ML PLAST..BAG 10 MCG IVCONT (02:55)
[2020-09-16] MEDS: Rocuronium Bromide 50 MG/5 ML VIAL IVPUSH (02:59)
--- NOTE | 2020-09-16 03:26 | ECG_ITS ---
Test Reason : rhythm check - post intubation Blood Pressure : / mmHG Vent. Rate : 125 BPM Atrial Rate : 125 BPM P-R Int : 156 ms QRS Dur : 094 ms QT Int : 302 ms P-R-T Axes : 034 037 022 degrees QTc Int : 435 ms Sinus tachycardia with occasional Premature ventricular complexes Possible Left atrial enlargement Nonspecific ST abnormality Abnormal ECG When compared with ECG of 15-SEP-2020 01:26, poor data quality in previous ECG Referred By: Julio Santillan Electronically Signed By:Drew Lawson
--- NOTE | 2020-09-16 03:56 | W.PM.CCHP ---
Procedures Central Line Placement Right IJ: Central Line Comments: Right internal jugular triple lumen central venous catheter placed in usual sterile conditions under ultrasound guidance for appropriate vascular access without immediate complications. Central line position verified with Chest XRAY. Consent for Procedure: Emergent-no informed consent obtained Time out performed: Yes Sterile Technique Used: Yes Patient placed on monitor/pulse ox: Yes prep: mask, gown and gloves Central line prep: Chlorhexidine scrub Ultrasound used for placement: Yes Central line lumen inserted: triple Post procedure: sutured in place, good blood return, all ports aspirated, flushed, capped and sterile dressing applied Post procedure x-ray: tip of catheter in good position and no pneumothorax seen Patient tolerated procedure: well and no complications Complications: none
--- NOTE | 2020-09-16 03:58 | W.PM.CCHP ---
Procedures Intubation Intubation Comments: Patient with acute respiratory distress refractory to CPAP and BIPAP, requiring emergent intubation for hypoxemia. Patient intubated with 8 cuffed ET tube under glide scope guidance with visualization of vocal cords, without immediate complications. ET tube position verified with Chest XRAY. Consent for Procedure: Emergent-no informed consent obtained Time out performed: Yes Sedative: other (Ketamine 100mg, Propofol 100mg) Paralytic: rocuronium Mg given: 50 Laryngoscope: fiber optic video scope ET tube size: 8 ET tube uncuffed: No Tube secured depth (cm): 23 Tube secured location: lips Tube placement confirmation: visualized tube passing through cords, equal breath sounds bilaterally, no breath sounds over epigastrium and confirmation by capnometry Patient tolerated procedure: well and no complications Intubation complications: none
[2020-09-16 04:05] LABS: ABG Base Excess 0.6 mmol/L; ABG HCO3 29 mmol/L (22-26); ABG pCO2 70 mmHg (32-45); ABG pCO2 TC 69 mmHg (32-45); ABG pH 7.23 (7.35-7.45); ABG pH TC 7.23 (7.35-7.45); ABG pO2 87 mmHg (83-108); ABG pO2 TC 87 (83-108)
[2020-09-16 04:05] LABS: Anion Gap 16 (12-20); Carbon Dioxide 25 mmol/L (22-29); Chloride 106 mmol/L (96-108); Magnesium 2.2 mg/dL (1.6-2.6); Potassium 3.8 mmol/L (3.3-5.1); Sodium 143 mmol/L (135-145)
[2020-09-16 04:19] LABS: Troponin-I High Sensitivity 177.8 ng/L (<3.5-35.0)
[2020-09-16] MEDS: methylPREDNISolone Sod Succ 125 MG/2 ML VIAL 60 MG IVPUSH ×4 (04:54→20:10)
[2020-09-16] MEDS: propofoL 1,000 MG/100 ML VIAL 29.94 MG IVCONT ×6 (05:07→21:32)
[2020-09-16] MEDS: Aspirin 81 MG TAB.CHEW 324 MG OG-TUBE (05:09)
[2020-09-16] MEDS: Calcium Gluconate/NaCl,Iso-Osm 1 GM/50 ML PLAST..BAG IV (05:10)
[2020-09-16] MEDS: Chlorhexidine Gluc Oral Rinse 15 ML MOUTHWASH BUCCAL ×3 (05:19→21:32)
--- NOTE | 2020-09-16 05:46 | PC.NURSE ---
Assumed care at 7pm - Patient anxious, requesting drinks frequently. tolerated small sips water on cpap 10. Lungs dim at bases, 02sat high 80's w/ cpap. Medicated w/ 1mg IV ativan & fent 25mcg @ 2055 with little effect. Medicated w/ HS meds - Zanaflex & seroquel @ 2338. @ approx 0230 patient ripped off cpap mask, attempted CPAP 10, then BIPAP, desat to 70's, RR up to 40's, Medicated w/ 50mcg fent @ 0235. not recovering well, still anxious, RR up, diaphoretic, accessory muscles used, 02sat 80's. Julio COMMERCIAL SALES DIRECTOR at bedside during episode - plan to intubate. Intubated @ 0252 with 8 ETT @ 23cm, after being given 100mg Ketamine, 50 Bon, 100mg Prop. After intubation Levo & prop drip started immediately. Patient not tolerating vent initially, high peak pressures, coughing, 02sat 70's to 80's still. Fent drip started @ 0256. Fent & prop drip titrated to max by 0259. 0300 hypertensive, levo stopped. @ approx 0315 TLC inserted to [facility]. OG tube inserted. CXR confirmed placement. Nimbex drip started at approx 0350 for vent synchrony. During TLC insertion moderate amt ectopy noted - new multifocal PVC's, HR 120'S, ST. EKG done - labs done, critical high trop - ASA given. Already on lovenox. Patient tolerating vent with sedation now - moderate oral secretions. 1 gram calc gluc given as well. Critical ABG's received - Julio COMMERCIAL SALES DIRECTOR aware of both results - vent settings changed - see vent assessments. Patient bathed, linens changed, repositioned Q2H. Restrained for airway safety.
[2020-09-16 05:47] LABS: Basophils Absolute Auto 0.1 X10*3/uL (0.0-0.2); Basophils Percent Auto 0.2 % (0-2); Hematocrit 37.9 % (42-52); Hemoglobin 12.2 g/dl (14.0-18.0); Imm Gran Abs Auto 1.15 X10*3/uL (0.00-0.03); Imm Gran Pct Auto 3.2 % (0.0-0.4); Lymphocytes Absolute Auto 2.6 X10*3/uL (1.2-4.9); MANUAL DIFF FLAG SCAN; Mean Corpuscular HGB Conc 32.2 g/dl (31.0-36.0); Mean Corpuscular Volume 96.2 fL (80-98); Mean Platelet Volume 11.3 fL (9.4-12.4); Monocytes Absolute Auto 1.9 X10*3/uL (0.1-1.2); Monocytes Percent Auto 5.1 % (2-11); Neutrophils Absolute Auto 30.7 X10*3/uL (2.0-8.3); Neutrophils Percent Auto 84.5 % (45-73); Platelet Count 373 X10*3/uL (160-400); Red Blood Count 3.94 X10*6/uL (4.60-5.80); Red Cell Distribution Width 21.7 % (11.0-16.0); SCAN SMEAR FLAG 1
[2020-09-16] MEDS: Pantoprazole Sodium 40 MG/10 ML VIAL IVPUSH (06:00)
[2020-09-16 06:22] LABS: Alanine Aminotransferase 21 U/L (0-40); Albumin Level 3.1 g/dL (3.5-5.0); Alkaline Phosphatase 148 U/L (39-117); Anion Gap 17 (12-20); Aspartate Amino Transferase 52 U/L (5-37); Bilirubin Total 1.9 mg/dL (0.0-1.0); Blood Urea Nitrogen 33 mg/dL (9-16); Calcium 9.1 mg/dL (8.4-10.2); Carbon Dioxide 26 mmol/L (22-29); Chloride 106 mmol/L (96-108); Creatinine Clr Calc Pharmacy 124.8; Estimated Glomerular Filt Rate > 60; Glucose Random 174 mg/dL (60-115); Magnesium 2.2 mg/dL (1.6-2.6); Phosphorus 6.2 mg/dL (2.7-4.5); Potassium 3.9 mmol/L (3.3-5.1); Sodium 145 mmol/L (135-145); Total Protein 7.2 g/dL (6.5-8.0)
[2020-09-16 06:26] LABS: Troponin-I High Sensitivity 146.2 ng/L (<3.5-35.0)
[2020-09-16 06:33] LABS: White Blood Count 36.4 X10*3/uL (4.8-10.8)
[2020-09-16 06:34] LABS: SLIDE REVIEW VERIFIED
[2020-09-16] MEDS: fentaNYL citrate/NS 1,000 MCG/100 ML PLAST..BAG 20 MCG IVCONT ×4 (06:37→22:03)
[2020-09-16] MEDS: Miconazole 2 % Extra Thick Cr 56.7 Gm Tube 1 APPL TOPICAL ×2 (08:16→20:23)
[2020-09-16 08:48] LABS: Glucose, Whole Blood 183 mg/dL (60-115)
[2020-09-16] MEDS: Sulfamethoxazole/Trimethoprim 160 MG in Dextrose 5 % 500 ML 225 MG IV ×2 (11:00→21:58)
[2020-09-16 12:10] LABS: Glucose, Whole Blood 148 mg/dL (60-115)
[2020-09-16 12:33] LABS: VBG Base Excess 3.8 mmol/L; VBG HCO3 32 mmol/L (22-26); VBG pCO2 71 mmHg; VBG pH 7.26 (7.32-7.43); VBG pO2 132 mmHg
--- NOTE | 2020-09-16 12:56 | MHC.CM.PN ---
Pt was intubated d/t worsening condition. Seen by Yana South on 09/15 who determined pt did not have the capacity to make decisions on his medical care - specifically on leaving AMA. Per MD, there are no plans to extubate pt today and care will focus on continued diuresis and respiratory management. Original d/c plan was for a transfer to [facility]. CM to follow for finalization of d/c plans
[2020-09-16] MEDS: Furosemide 500 MG in Container,Empty 0 ML IVCONT (14:04)
--- NOTE | 2020-09-16 14:15 | PM.CCPN ---
Subjective Subjective Date of Service: 09/16/20 Interval History: 60-year-old gentleman, active 30+ pack-year smoker, with underlying history of hep C cirrhosis, diabetes mellitus, pulmonary hypertension likely secondary to left heart dysfunction, diastolic congestive heart failure, polysubstance abuse admitted on 09/02/2020 with progressive dyspnea. He has been treated for congestive heart failure with some improvement until 09/13/2020 when he developed worsening dyspnea and oxygen requirements. His CT chest angiogram has been negative for pulmonary emboli, but he has significant bilateral pulmonary edema versus diffuse ground-glass infiltrates. COVID-19 negative. His cultures remain negative today. 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 Patient with progressive hypoxemia requiring initiation of noninvasive positive pressure ventilation on 09/14/2020 and intubation on 09/16/2020. Overnight with progressive hypoxemia requiring intubation and ventilatory support. Physical Exam Vital Signs: Vital Signs: Last Vital Signs Temp 97.3 F 09/16/20 12:00 Pulse 90 09/16/20 14:00 Resp 26 H 09/16/20 14:00 BP 104/62 09/16/20 14:00 Pulse Ox 95 09/16/20 14:00 Body Mass Index 29.8 Const: General: no acute distress and other (Sedated on the vent) Eyes: Sclerae: sclerae normal EOM: EOMs intact bilaterally Neck: Neck: Yes no lymphadenopathy, Yes trachea midline and Yes supple Resp: Auscultation: crackles (Diffuse bilateral) Cardio: Rate: regular rate Rhythm: regular rhythm Heart sounds: no gallops, no murmurs and no rubs GI: Palpation (GI): Soft to palpation and Other GI palpation findings present ( Nontender) Auscultation: normal bowel sounds Extrem: General: No clubbing, No cyanosis and Yes pedal edema (Trace bilateral) Objective Data Labs CBC & Chem 7: 09/16/20 05:12 09/16/20 05:12 Labs: Laboratory Results - last 24 hr 09/15/20 09/15/20 09/16/20 18:37 18:37 03:35 WBC RBC Hgb Hct MCV MCH MCHC RDW Plt Count MPV Immature Gran % (Auto) Neut % (Auto) Lymph % (Auto) [place] % (Auto) Eos % (Auto) Baso % (Auto) Lymph # (Auto) [place] # (Auto) Eos # (Auto) Baso # (Auto) Abs Immat Gran (auto) Absolute Neuts (auto) Absolute Nucleated RBC Nucleated RBC % (auto) Smear Tech's Comments O2 Saturation ABG pH at Pt Temp ABG pH (Temp Correct) ABG pCO2 at Pt Temp ABG pCO2 (Temp Corrct ABG pO2 at Pt Temp ABG pO2 (Temp Correct ABG HCO3 ABG Base Excess (Actual) VBG pH 7.49 H VBG pCO2 38 VBG pO2 43 VBG HCO3 29 H VBG O2 Saturation 76.0 VBG Base Excess 5.7 Sodium 142 143 Potassium 4.5 3.8 Chloride 105 106 Carbon Dioxide 26 25 Anion Gap 16 16 BUN 24 H Creatinine 0.69 Estim Creat Clear Calc 137.5 Estimated GFR > 60 POC Glucose Random Glucose 125 H Calcium 8.5 D Phosphorus Magnesium 2.2 Total Bilirubin AST ALT Alkaline Phosphatase Troponin I High Sens Total Protein Albumin 09/16/20 09/16/20 09/16/20 03:35 03:58 05:12 WBC 36.4 H* RBC 3.94 L D Hgb 12.2 L D Hct 37.9 L D MCV 96.2 MCH 31.0 MCHC 32.2 RDW 21.7 H Plt Count 373 D MPV 11.3 Immature Gran % (Auto) 3.2 H Neut % (Auto) 84.5 H Lymph % (Auto) 7.0 L [place] % (Auto) 5.1 Eos % (Auto) 0.0 Baso % (Auto) 0.2 Lymph # (Auto) 2.6 [place] # (Auto) 1.9 H Eos # (Auto) 0.0 Baso # (Auto) 0.1 Abs Immat Gran (auto) 1.15 H Absolute Neuts (auto) 30.7 H Absolute Nucleated RBC 0.000 Nucleated RBC % (auto) 0.0 Smear Tech's Comments VERIFIED O2 Saturation 95.0 ABG pH at Pt Temp 7.23 L ABG pH (Temp Correct) 7.23 L ABG pCO2 at Pt Temp 70 H* ABG pCO2 (Temp Corrct 69 H* ABG pO2 at Pt Temp 87 ABG pO2 (Temp Correct 87 ABG HCO3 29 H ABG Base Excess (Actual) 0.6 VBG pH VBG pCO2 VBG pO2 VBG HCO3 VBG O2 Saturation VBG Base Excess Sodium Potassium Chloride Carbon Dioxide Anion Gap BUN Creatinine Estim Creat Clear Calc Estimated GFR POC Glucose Random Glucose Calcium Phosphorus Magnesium Total Bilirubin AST ALT Alkaline Phosphatase Troponin I High Sens 177.8 H D Total Protein Albumin 09/16/20 09/16/20 09/16/20 05:12 05:12 08:44 WBC RBC Hgb Hct MCV MCH MCHC RDW Plt Count MPV Immature Gran % (Auto) Neut % (Auto) Lymph % (Auto) [place] % (Auto) Eos % (Auto) Baso % (Auto) Lymph # (Auto) [place] # (Auto) Eos # (Auto) Baso # (Auto) Abs Immat Gran (auto) Absolute Neuts (auto) Absolute Nucleated RBC Nucleated RBC % (auto) Smear Tech's Comments O2 Saturation ABG pH at Pt Temp ABG pH (Temp Correct) ABG pCO2 at Pt Temp ABG pCO2 (Temp Corrct ABG pO2 at Pt Temp ABG pO2 (Temp Correct ABG HCO3 ABG Base Excess (Actual) VBG pH VBG pCO2 VBG pO2 VBG HCO3 VBG O2 Saturation VBG Base Excess Sodium 145 Potassium 3.9 Chloride 106 Carbon Dioxide 26 Anion Gap 17 BUN 33 H Creatinine 0.76 Estim Creat Clear Calc 124.8 Estimated GFR > 60 POC Glucose 183 H Random Glucose 174 H D Calcium 9.1 D Phosphorus 6.2 H Magnesium 2.2 Total Bilirubin 1.9 H AST 52 H ALT 21 Alkaline Phosphatase 148 H D Troponin I High Sens 146.2 H Total Protein 7.2 D Albumin 3.1 L D 09/16/20 09/16/20 12:07 12:26 WBC RBC Hgb Hct MCV MCH MCHC RDW Plt Count MPV Immature Gran % (Auto) Neut % (Auto) Lymph % (Auto) [place] % (Auto) Eos % (Auto) Baso % (Auto) Lymph # (Auto) [place] # (Auto) Eos # (Auto) Baso # (Auto) Abs Immat Gran (auto) Absolute Neuts (auto) Absolute Nucleated RBC Nucleated RBC % (auto) Smear Tech's Comments O2 Saturation ABG pH at Pt Temp ABG pH (Temp Correct) ABG pCO2 at Pt Temp ABG pCO2 (Temp Corrct ABG pO2 at Pt Temp ABG pO2 (Temp Correct ABG HCO3 ABG Base Excess (Actual) VBG pH 7.26 L VBG pCO2 71 VBG pO2 132 VBG HCO3 32 H VBG O2 Saturation 99.0 VBG Base Excess 3.8 Sodium Potassium Chloride Carbon Dioxide Anion Gap BUN Creatinine Estim Creat Clear Calc Estimated GFR POC Glucose 148 H Random Glucose Calcium Phosphorus Magnesium Total Bilirubin AST ALT Alkaline Phosphatase Troponin I High Sens Total Protein Albumin Microbiology Microbiology Results: Microbiology 09/15/20 03:34 Blood - Venous Blood Culture - Preliminary No growth after 24 hours. 09/15/20 03:37 Blood - Venous Blood Culture - Preliminary No growth after 24 hours. 09/02/20 12:30 Blood - Venous Blood Culture - Final No growth after 5 days. 09/02/20 12:10 Blood - Venous Blood Culture - Final No growth after 5 days. Progress Note: A&P Assessment and plan (1) Cerebral microvascular disease: Status: Acute Assessment and Plan: Assessment: 60-year-old gentleman with underlying multiple medical issues including hepatitis-C liver cirrhosis, congestive heart failure, hypoalbuminemia admitted with progressive dyspnea, now requiring ventilatory support Plan: Neuro: Underlying chronic microvascular cerebral disease. No acute issues at this time. Cardiac: Acute on chronic congestive heart failure. Cardiology service care appreciated. Continue with diuresis. Pulmonary: Acute hypoxic respiratory failure, likely multifactorial with contribution from underlying congestive heart failure, pulmonary hypertension likely secondary to left heart dysfunction, possible interstitial lung disease secondary to substance abuse, and possible PCP. Continue to titrate off ventilatory support as tolerated. Continues on empiric Solu-Medrol and treatment Bactrim regimen. DVT study is negative, CT chest negative for pulmonary embolism. Will consider bronchoscopic bronchoalveolar lavage and possible parenchymal biopsy, if fails to improve. Renal: Continue with IV diuresis. Non oliguric. Continue to monitor renal indices and urine output. Endo: No acute issues. GI: Underlying liver cirrhosis secondary to hepatitis-C. ID: Empirically covered with Bactrim for possible PCP. Heme/Onc: No acute issues. Psych: No acute issues. Miscellaneous: No acute issues. Prophylaxis: Lovenox, ppi Diet: Tube feeds Critical care time spent: 60 minutes excluding separately billable procedures (2) Transaminitis: Status: Acute (3) Pulmonary hypertension: Status: Acute (4) Acute on chronic right heart failure: Status: Acute (5) Acute diastolic heart failure: Status: Acute (6) Acute respiratory failure with hypoxia: Status: Acute (7) Substance abuse: Status: Acute Critical Care Time Critical Care Time (minutes): 60
[2020-09-16 14:32] LABS: Venous Blood Gas Refer to POC result
[2020-09-16 14:48] LABS: Venous Blood Gas Refer to POC result
[2020-09-16 15:54] LABS: TSH reflex Free T4 0.67 uIU/mL (0.32-4.0)
[2020-09-16 18:07] LABS: Glucose, Whole Blood 132 mg/dL (60-115)
--- NOTE | 2020-09-16 18:24 | PC.NURSE ---
Attempted to call son, Juvenal, to update about plan of care, but phone # not accepting calls at this time.
[2020-09-16 19:53] LABS: VBG Base Excess -1.3 mmol/L; VBG HCO3 30 mmol/L (22-26); VBG pCO2 86 mmHg; VBG pO2 80 mmHg
[2020-09-16 19:54] LABS: VBG pH 7.14 (7.32-7.43)
[2020-09-16] MEDS: Enoxaparin Sodium 40 MG/0.4 ML SYRINGE SUBCUT (20:06)
--- NOTE | 2020-09-16 20:16 | PC.NURSE ---
Assumed care at 0700. Patient sedate on propofol 50 and Fentanyl 200 and nimbex gtt at 1. Patient with no cough, no gag, flaccid throughout, pupils sluggish. Train of four was 4 this AM. Nimbex stopped at 12 pm. Patient still on fentanyl 200 and propofol 50 and lacks a cough and gag currently, but now responds to painful stimuli. MD aware. Sedation titrated for ventilator synchrony. Patient now overbreathes at about 32 RR, whereas he was synchronous on nimbex gtt. Patient has #8 ETT 23 cm osmel; AC settings AC 30/TV 450; Fio2 at 60% (titirated down from 100%), PEEP 10. Patient minmut volumes around 12-15. Patient with no inline secretions and minimal clear oral secretions. Lung sounds dim throughout, auscultated from behind more clearly. Patient with sinus tachycardia and sinus rhythm on monitor, seemed to trend more toward sinus rhythm after application of sae hugger about 1300. Patient initially had oral core temp about 95.3, and the oral probe was placed deeper without change. Rectal temp this morning was 97.3. by afternoon, rectal temp was 95.3, and sae hugger applied after MD notified. Patient levophed restarted this afternoon as BP dropped into 80's systollically.urine outputs 30-50 per hour, concentrated. attempts to reach patient family were unsuccessful today.
[2020-09-17] VITALS (38 sets, daily range): BP systolic 84–153; BP diastolic 42–83; PULSE 54–89; RESP 22–31; TEMP 35.8–36.4; O2SAT 90–96
[2020-09-17] MEDS: propofoL 1,000 MG/100 ML VIAL 29.94 MG IVCONT ×7 (00:58→19:25)
[2020-09-17] MEDS: methylPREDNISolone Sod Succ 125 MG/2 ML VIAL 60 MG IVPUSH ×4 (03:14→21:16)
[2020-09-17] MEDS: fentaNYL citrate/NS 1,000 MCG/100 ML PLAST..BAG 20 MCG IVCONT ×4 (03:16→18:26)
[2020-09-17] MEDS: Chlorhexidine Gluc Oral Rinse 15 ML MOUTHWASH BUCCAL ×3 (05:36→21:22)
[2020-09-17] MEDS: Pantoprazole Sodium 40 MG/10 ML VIAL IVPUSH (05:36)
[2020-09-17 05:44] LABS: VBG Base Excess 6.6 mmol/L; VBG HCO3 32 mmol/L (22-26); VBG pCO2 49 mmHg; VBG pH 7.41 (7.32-7.43); VBG pO2 73 mmHg
[2020-09-17 05:52] LABS: Basophils Percent Auto 0.1 % (0-2); Hematocrit 32.1 % (42-52); Hemoglobin 10.5 g/dl (14.0-18.0); Imm Gran Abs Auto 0.23 X10*3/uL (0.00-0.03); Imm Gran Pct Auto 0.8 % (0.0-0.4); Lymphocytes Absolute Auto 1.2 X10*3/uL (1.2-4.9); MANUAL DIFF FLAG SCAN; Mean Corpuscular HGB Conc 32.7 g/dl (31.0-36.0); Mean Corpuscular Volume 94.7 fL (80-98); Mean Platelet Volume 11.1 fL (9.4-12.4); Monocytes Absolute Auto 1.2 X10*3/uL (0.1-1.2); Monocytes Percent Auto 4.1 % (2-11); NRBC Pct Auto 0.1 /100WBC (0.0-0.2); Neutrophils Absolute Auto 27.3 X10*3/uL (2.0-8.3); Platelet Count 298 X10*3/uL (160-400); Red Blood Count 3.39 X10*6/uL (4.60-5.80); Red Cell Distribution Width 21.7 % (11.0-16.0); SCAN SMEAR FLAG 1
[2020-09-17 05:53] LABS: Venous Blood Gas Refer to POC result
[2020-09-17 06:19] LABS: Glucose, Whole Blood 136 mg/dL (60-115)
[2020-09-17 06:21] LABS: Alanine Aminotransferase 18 U/L (0-40); Albumin Level 2.6 g/dL (3.5-5.0); Alkaline Phosphatase 113 U/L (39-117); Anion Gap 13 (12-20); Aspartate Amino Transferase 34 U/L (5-37); Bilirubin Total 1.3 mg/dL (0.0-1.0); Blood Urea Nitrogen 51 mg/dL (9-16); Calcium 8.4 mg/dL (8.4-10.2); Carbon Dioxide 29 mmol/L (22-29); Chloride 110 mmol/L (96-108); Creatinine Clr Calc Pharmacy 98.8; Estimated Glomerular Filt Rate > 60; Glucose Random 159 mg/dL (60-115); Magnesium 2.3 mg/dL (1.6-2.6); Phosphorus 3.3 mg/dL (2.7-4.5); Potassium 3.9 mmol/L (3.3-5.1); Sodium 148 mmol/L (135-145); Total Protein 6.1 g/dL (6.5-8.0)
[2020-09-17 06:33] LABS: SLIDE REVIEW VERIFIED
[2020-09-17] MEDS: Miconazole 2 % Extra Thick Cr 56.7 Gm Tube 1 APPL TOPICAL ×2 (08:29→21:17)
--- NOTE | 2020-09-17 10:45 | MHC.CLN ---
F/U RECOMMEND PROMOTE AT MAX GOAL RATE 55CC/HR TO PROVIDE 1320KCALS (2110KCALS WITH SEDATION; 24KCALS/KG), 82.5G PROTEIN, 1107CC FREE WATER MONITOR TOLERANCE, RESIDUALS AND LYTES
[2020-09-17] MEDS: Sulfameth/Trimet 800/160/20 ML 20 ML ORAL.SUSP PO ×2 (12:06→21:16)
[2020-09-17 12:09] LABS: Glucose, Whole Blood 143 mg/dL (60-115)
--- NOTE | 2020-09-17 12:50 | P.PNCC_ITS ---
Subjective Subjective Date of Service: 09/17/20 Interval History: 60-year-old gentleman, active 30+ pack-year smoker, with underlying history of hep C cirrhosis, diabetes mellitus, pulmonary hypertension likely secondary to left heart dysfunction, diastolic congestive heart failure, polysubstance abuse admitted on 09/02/2020 with progressive dyspnea. He has been treated for congestive heart failure with some improvement until 09/13/2020 when he developed worsening dyspnea and oxygen requirements. His CT chest angiogram has been negative for pulmonary emboli, but he has significant bilateral pulmonary edema versus diffuse ground-glass infiltrates. COVID-19 negative. His cultures remain negative today. 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 Patient with progressive hypoxemia requiring initiation of noninvasive positive pressure ventilation on 09/14/2020 and intubation on 09/16/2020. No events overnight. Physical Exam Vital Signs: Vital Signs: Last Vital Signs Temp 96.8 F 09/17/20 12:00 Pulse 82 09/17/20 12:00 Resp 30 H 09/17/20 12:00 BP 121/58 L 09/17/20 12:00 Pulse Ox 91 L 09/17/20 12:00 Body Mass Index 29.8 Const: General: no acute distress and other (Sedated on the vent) Eyes: Sclerae: sclerae normal EOM: EOMs intact bilaterally Neck: Neck: Yes no lymphadenopathy, Yes trachea midline and Yes supple Resp: Effort & Inspection: normal respiratory effort and no respiratory dist ress Auscultation: clear to auscultation bilaterally Cardio: Rate: regular rate Rhythm: regular rhythm Heart sounds: no gallops, no murmurs and no rubs GI: Palpation (GI): Soft to palpation and Other GI palpation findings present ( Nontender) Auscultation: normal bowel sounds Extrem: General: No clubbing, No cyanosis and Yes pedal edema (Trace bilateral) Objective Data Labs CBC & Chem 7: 09/17/20 05:28 09/17/20 05:28 Labs: Laboratory Results - last 24 hr 09/16/20 09/16/20 09/16/20 05:15 14:49 18:03 WBC RBC Hgb Hct MCV MCH MCHC RDW Plt Count MPV Immature Gran % (Auto) Neut % (Auto) Lymph % (Auto) [place] % (Auto) Eos % (Auto) Baso % (Auto) Lymph # (Auto) [place] # (Auto) Eos # (Auto) Baso # (Auto) Abs Immat Gran (auto) Absolute Neuts (auto) Absolute Nucleated RBC Nucleated RBC % (auto) Smear Tech's Comments VBG pH 7.14 L* VBG pCO2 86 VBG pO2 80 VBG HCO3 30 H VBG O2 Saturation 89.0 VBG Base Excess -1.3 Sodium Potassium Chloride Carbon Dioxide Anion Gap BUN Creatinine Estim Creat Clear Calc Estimated GFR POC Glucose 132 H Random Glucose Calcium Phosphorus Magnesium Total Bilirubin AST ALT Alkaline Phosphatase Total Protein Albumin TSH 0.67 09/17/20 09/17/20 09/17/20 05:28 05:28 05:37 WBC 30.0 H* RBC 3.39 L Hgb 10.5 L Hct 32.1 L MCV 94.7 MCH 31.0 MCHC 32.7 RDW 21.7 H Plt Count 298 MPV 11.1 Immature Gran % (Auto) 0.8 H Neut % (Auto) 91.0 H Lymph % (Auto) 4.0 L [place] % (Auto) 4.1 Eos % (Auto) 0.0 Baso % (Auto) 0.1 Lymph # (Auto) 1.2 [place] # (Auto) 1.2 Eos # (Auto) 0.0 Baso # (Auto) 0.0 Abs Immat Gran (auto) 0.23 H Absolute Neuts (auto) 27.3 H Absolute Nucleated RBC 0.020 H Nucleated RBC % (auto) 0.1 Smear Tech's Comments VERIFIED VBG pH 7.41 VBG pCO2 49 VBG pO2 73 VBG HCO3 32 H VBG O2 Saturation 94.0 VBG Base Excess 6.6 Sodium 148 H Potassium 3.9 Chloride 110 H Carbon Dioxide 29 Anion Gap 13 BUN 51 H D Creatinine 0.96 Estim Creat Clear Calc 98.8 Estimated GFR > 60 POC Glucose Random Glucose 159 H Calcium 8.4 D Phosphorus 3.3 Magnesium 2.3 Total Bilirubin 1.3 H AST 34 ALT 18 Alkaline Phosphatase 113 D Total Protein 6.1 L Albumin 2.6 L TSH 09/17/20 09/17/20 06:15 12:05 WBC RBC Hgb Hct MCV MCH MCHC RDW Plt Count MPV Immature Gran % (Auto) Neut % (Auto) Lymph % (Auto) [place] % (Auto) Eos % (Auto) Baso % (Auto) Lymph # (Auto) [place] # (Auto) Eos # (Auto) Baso # (Auto) Abs Immat Gran (auto) Absolute Neuts (auto) Absolute Nucleated RBC Nucleated RBC % (auto) Smear Tech's Comments VBG pH VBG pCO2 VBG pO2 VBG HCO3 VBG O2 Saturation VBG Base Excess Sodium Potassium Chloride Carbon Dioxide Anion Gap BUN Creatinine Estim Creat Clear Calc Estimated GFR POC Glucose 136 H 143 H Random Glucose Calcium Phosphorus Magnesium Total Bilirubin AST ALT Alkaline Phosphatase Total Protein Albumin TSH Microbiology Microbiology Results: Microbiology 09/15/20 03:34 Blood - Venous Blood Culture - Preliminary No growth after 48 hours. 09/15/20 03:37 Blood - Venous Blood Culture - Preliminary No growth after 48 hours. 09/02/20 12:30 Blood - Venous Blood Culture - Final No growth after 5 days. 09/02/20 12:10 Blood - Venous Blood Culture - Final No growth after 5 days. Progress Note: A&P Assessment and plan (1) Cerebral microvascular disease: Status: Acute Assessment and Plan: Assessment: 60-year-old gentleman with underlying multiple medical issues including hepatitis-C liver cirrhosis, congestive heart failure, hypoalbuminemia admitted with progressive dyspnea, now requiring ventilatory support Plan: Neuro: Underlying chronic microvascular cerebral disease. No acute issues at this time. Cardiac: Acute on chronic congestive heart failure. Cardiology service care appreciated. Pulmonary: Acute hypoxic respiratory failure, likely multifactorial with contribution from underlying congestive heart failure, pulmonary hypertension likely secondary to left heart dysfunction, possible interstitial lung disease secondary to substance abuse, and possible PCP. Continue to titrate off ventilatory support as tolerated. Continues on empiric Solu-Medrol and treatment Bactrim regimen. DVT study is negative, CT chest negative for pulmonary embolism. Bronchoscopy with bronchoalveolar lavage for PCP rule out today. Renal: Continue with IV diuresis. Non oliguric. Continue to monitor renal indices and urine output. Endo: No acute issues. GI: Underlying liver cirrhosis secondary to hepatitis-C. ID: Empirically covered with Bactrim for possible PCP. Heme/Onc: No acute issues. Psych: No acute issues. Miscellaneous: No acute issues. Prophylaxis: Lovenox, ppi Diet: Tube feeds Critical care time spent: 60 minutes excluding separately billable procedures (2) Pulmonary hypertension: Status: Acute (3) Non-rheumatic tricuspid valve insufficiency: Status: Acute (4) Acute on chronic right heart failure: Status: Acute (5) Acute diastolic heart failure: Status: Acute (6) Acute respiratory failure with hypoxia: Status: Acute (7) Substance abuse: Status: Acute (8) Liver cirrhosis: Status: Acute (9) Hepatitis C virus: Status: Acute Critical Care Time Critical Care Time (minutes): 60
[2020-09-17] MEDS: Albumin Human 25 % 100 ML IV (12:54)
--- NOTE | 2020-09-17 14:23 | MHC.CM.PN ---
Pt continues in ICU on ventilatory support: scheduled for a bronchoscopy today. No plans to extubate per discussion with care team at rounds. D/C plan remains for transfer to [facility] when medically stable and is successfully extubated. Update on plan called to pt's son Juvenal who is in agreement at this time. CM will follow
[2020-09-17] MEDS: Albumin Human 25 % 100 ML 200 ML IV (17:52)
[2020-09-17 18:03] LABS: Glucose, Whole Blood 142 mg/dL (60-115)
[2020-09-17] MEDS: Enoxaparin Sodium 40 MG/0.4 ML SYRINGE SUBCUT (21:16)
[2020-09-17] MEDS: propofoL 1,000 MG/100 ML VIAL 23.95 MG IVCONT (22:46)
[2020-09-17] MEDS: fentaNYL citrate/NS 1,000 MCG/100 ML PLAST..BAG 17.5 MCG IVCONT (23:29)
[2020-09-18] VITALS (38 sets, daily range): BP systolic 93–123; BP diastolic 48–77; PULSE 49–76; RESP 29–30; TEMP 35.3–37.1; O2SAT 91–96
[2020-09-18 00:26] LABS: Glucose, Whole Blood 165 mg/dL (60-115)
[2020-09-18] MEDS: Albumin Human 25 % 100 ML IV ×2 (00:55→06:04)
[2020-09-18] MEDS: methylPREDNISolone Sod Succ 125 MG/2 ML VIAL 60 MG IVPUSH (03:50)
[2020-09-18 05:33] LABS: VBG Base Excess 10.2 mmol/L; VBG HCO3 35 mmol/L (22-26); VBG pCO2 48 mmHg; VBG pH 7.47 (7.32-7.43); VBG pO2 61 mmHg
[2020-09-18] MEDS: fentaNYL citrate/NS 1,000 MCG/100 ML PLAST..BAG 17.5 MCG IVCONT (05:56)
[2020-09-18] MEDS: propofoL 1,000 MG/100 ML VIAL 11.98 MG IVCONT (05:59)
[2020-09-18 06:01] LABS: MANUAL DIFF FLAG NO
[2020-09-18 06:03] LABS: Basophils Percent Auto 0.1 % (0-2); Hematocrit 28.3 % (42-52); Hemoglobin 9.3 g/dl (14.0-18.0); Imm Gran Abs Auto 0.09 X10*3/uL (0.00-0.03); Imm Gran Pct Auto 0.6 % (0.0-0.4); Lymphocytes Absolute Auto 0.9 X10*3/uL (1.2-4.9); Lymphocytes Percent Auto 5.5 % (20-40); Mean Corpuscular HGB Conc 32.9 g/dl (31.0-36.0); Mean Corpuscular Hemoglobin 31.1 pg (27.0-33.0); Mean Corpuscular Volume 94.6 fL (80-98); Mean Platelet Volume 11.6 fL (9.4-12.4); Monocytes Absolute Auto 0.9 X10*3/uL (0.1-1.2); Monocytes Percent Auto 5.9 % (2-11); NRBC Pct Auto 0.2 /100WBC (0.0-0.2); Neutrophils Percent Auto 87.9 % (45-73); Platelet Count 231 X10*3/uL (160-400); Red Blood Count 2.99 X10*6/uL (4.60-5.80); Red Cell Distribution Width 21.5 % (11.0-16.0); White Blood Count 15.9 X10*3/uL (4.8-10.8)
[2020-09-18] MEDS: Chlorhexidine Gluc Oral Rinse 15 ML MOUTHWASH BUCCAL ×3 (06:04→20:50)
[2020-09-18] MEDS: Pantoprazole Sodium 40 MG/10 ML VIAL IVPUSH (06:04)
[2020-09-18 06:13] LABS: Albumin Level 3.2 g/dL (3.5-5.0); Anion Gap 12 (12-20); Blood Urea Nitrogen 61 mg/dL (9-16); Calcium 8.9 mg/dL (8.4-10.2); Carbon Dioxide 31 mmol/L (22-29); Chloride 110 mmol/L (96-108); Creatinine Clr Calc Pharmacy 110.3; Estimated Glomerular Filt Rate > 60; Glucose Random 153 mg/dL (60-115); Magnesium 2.8 mg/dL (1.6-2.6); Potassium 3.9 mmol/L (3.3-5.1); Sodium 149 mmol/L (135-145)
[2020-09-18 06:22] LABS: Glucose, Whole Blood 145 mg/dL (60-115)
--- NOTE | 2020-09-18 06:30 | PC.NURSE ---
Afebrile, VSS, titrated off levophed gtt per emar. Vent settings remained the same. Pt sedated on propofol and fentanyl. Positive cough/gag, attempts to open eyes/moves exxtremities when name is called.Hr ranging from 44-60s most of night.Tube feedings at max rate; Glucerna 40mls/hr, pt tolerating well. Bath given, repo q2hr, fungal cream applied.
[2020-09-18] MEDS: Miconazole 2 % Extra Thick Cr 56.7 Gm Tube 1 APPL TOPICAL ×2 (07:15→20:50)
[2020-09-18] MEDS: Sulfameth/Trimet 800/160/20 ML 20 ML ORAL.SUSP PO ×2 (07:15→20:50)
[2020-09-18 08:20] LABS: Venous Blood Gas Refer to POC result
--- NOTE | 2020-09-18 10:39 | P.PNCC_ITS ---
Subjective Subjective Date of Service: 09/18/20 Interval History: 60-year-old gentleman, active 30+ pack-year smoker, with underlying history of hep C cirrhosis, diabetes mellitus, pulmonary hypertension likely secondary to left heart dysfunction, diastolic congestive heart failure, polysubstance abuse admitted on 09/02/2020 with progressive dyspnea. He has been treated for congestive heart failure with some improvement until 09/13/2020 when he developed worsening dyspnea and oxygen requirements. His CT chest angiogram has been negative for pulmonary emboli, but he has significant bilateral pulmonary edema versus diffuse ground-glass infiltrates. COVID-19 negative. His cultures remain negative today. 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 Patient with progressive hypoxemia requiring initiation of noninvasive positive pressure ventilation on 09/14/2020 and intubation on 09/16/2020. No events overnight. FiO2 requirements and leukocytosis are improving. Physical Exam Vital Signs: Vital Signs: Last Vital Signs Temp 97.2 F 09/18/20 10:00 Pulse 57 09/18/20 10:22 Resp 30 H 09/18/20 10:00 BP 109/58 L 09/18/20 10:22 Pulse Ox 92 09/18/20 10:00 Oxygen Flow Rate 15 09/15/20 02:40 Body Mass Index 29.8 Const: General: no acute distress and other (Sedated on the vent, arousable with sedation vacation) Eyes: Sclerae: sclerae normal Neck: Neck: Yes no lymphadenopathy, Yes trachea midline and Yes supple Resp: Effort & Inspection: normal respiratory effort and no respiratory distress Auscultation: clear to auscultation bilaterally Cardio: Rate: regular rate (Intermittent bradycardia) Rhythm: regular rhythm Heart sounds: no gallops, no murmurs and no rubs GI: Palpation (GI): Soft to palpation and Other GI palpation findings present ( Nontender) Auscultation: normal bowel sounds Extrem: General: No clubbing, No cyanosis and Yes pedal edema (Trace bilateral) Objective Data Labs CBC & Chem 7: 09/18/20 05:54 09/18/20 05:23 Labs: Laboratory Results - last 24 hr 09/17/20 09/17/20 09/18/20 12:05 17:56 00:22 WBC RBC Hgb Hct MCV MCH MCHC RDW Plt Count MPV Immature Gran % (Auto) Neut % (Auto) Lymph % (Auto) [place] % (Auto) Eos % (Auto) Baso % (Auto) Lymph # (Auto) [place] # (Auto) Eos # (Auto) Baso # (Auto) Abs Immat Gran (auto) Absolute Neuts (auto) Absolute Nucleated RBC Nucleated RBC % (auto) VBG pH VBG pCO2 VBG pO2 VBG HCO3 VBG O2 Saturation VBG Base Excess Sodium Potassium Chloride Carbon Dioxide Anion Gap BUN Creatinine Estim Creat Clear Calc Estimated GFR POC Glucose 143 H 142 H 165 H Random Glucose Calcium Phosphorus Magnesium Albumin 09/18/20 09/18/20 09/18/20 05:23 05:26 05:54 WBC 15.9 H RBC 2.99 L Hgb 9.3 L Hct 28.3 L MCV 94.6 MCH 31.1 MCHC 32.9 RDW 21.5 H Plt Count 231 MPV 11.6 Immature Gran % (Auto) 0.6 H Neut % (Auto) 87.9 H Lymph % (Auto) 5.5 L [place] % (Auto) 5.9 Eos % (Auto) 0.0 Baso % (Auto) 0.1 Lymph # (Auto) 0.9 L [place] # (Auto) 0.9 Eos # (Auto) 0.0 Baso # (Auto) 0.0 Abs Immat Gran (auto) 0.09 H Absolute Neuts (auto) 14.0 H Absolute Nucleated RBC 0.030 H Nucleated RBC % (auto) 0.2 VBG pH 7.47 H VBG pCO2 48 VBG pO2 61 VBG HCO3 35 H VBG O2 Saturation 92.0 VBG Base Excess 10.2 Sodium 149 H Potassium 3.9 Chloride 110 H Carbon Dioxide 31 H Anion Gap 12 BUN 61 H Creatinine 0.86 Estim Creat Clear Calc 110.3 Estimated GFR > 60 POC Glucose Random Glucose 153 H Calcium 8.9 Phosphorus 3.0 Magnesium 2.8 H Albumin 3.2 L D 09/18/20 06:09 WBC RBC Hgb Hct MCV MCH MCHC RDW Plt Count MPV Immature Gran % (Auto) Neut % (Auto) Lymph % (Auto) [place] % (Auto) Eos % (Auto) Baso % (Auto) Lymph # (Auto) [place] # (Auto) Eos # (Auto) Baso # (Auto) Abs Immat Gran (auto) Absolute Neuts (auto) Absolute Nucleated RBC Nucleated RBC % (auto) VBG pH VBG pCO2 VBG pO2 VBG HCO3 VBG O2 Saturation VBG Base Excess Sodium Potassium Chloride Carbon Dioxide Anion Gap BUN Creatinine Estim Creat Clear Calc Estimated GFR POC Glucose 145 H Random Glucose Calcium Phosphorus Magnesium Albumin Microbiology Microbiology Results: Microbiology 09/17/20 12:45 Bronchial Alveo Lavage Gram Stain - Final 09/17/20 12:45 Bronchial Alveo Lavage - Preliminary Staphylococcus species 09/15/20 03:34 Blood - Venous Blood Culture - Preliminary No growth after 48 hours. 09/15/20 03:37 Blood - Venous Blood Culture - Preliminary No growth after 48 hours. 09/02/20 12:30 Blood - Venous Blood Culture - Final No growth after 5 days. 09/02/20 12:10 Blood - Venous Blood Culture - Final No growth after 5 days. Progress Note: A&P Assessment and plan (1) Hepatitis C virus: Status: Acute Assessment and Plan: Assessment: 60-year-old gentleman with underlying multiple medical issues including hepatitis-C liver cirrhosis, congestive heart failure, hypoalbuminemia admitted with progressive dyspnea, now requiring ventilatory support Plan: Neuro: Underlying chronic microvascular cerebral disease. No acute issues at this time. Cardiac: Acute on chronic congestive heart failure. Cardiology service care appreciated. Pulmonary: Acute hypoxic respiratory failure, likely multifactorial with contribution from underlying congestive heart failure, pulmonary hypertension likely secondary to left heart dysfunction, possible interstitial lung disease secondary to substance abuse, and possible PCP. Continue to titrate off ventilatory support as tolerated. Continues on empiric Solu-Medrol and treatmen t Bactrim regimen. DVT study is negative, CT chest negative for pulmonary embolism. Bronchoscopy with bronchoalveolar lavage for PCP rule out today. Renal: Non oliguric. Continue to monitor renal indices and urine output. Endo: No acute issues. GI: Underlying liver cirrhosis secondary to hepatitis-C. ID: Empirically covered with Bactrim for possible PCP. Cultures from bronchoalveolar lavage are pending. Heme/Onc: No acute issues. Psych: No acute issues. Miscellaneous: No acute issues. Prophylaxis: Lovenox, ppi Diet: Tube feeds Critical care time spent: 60 minutes excluding separately billable procedures (2) Liver cirrhosis: Status: Acute (3) Cerebral microvascular disease: Status: Acute (4) Pulmonary hypertension: Status: Acute (5) Acute on chronic right heart failure: Status: Acute (6) Acute respiratory failure with hypoxia: Status: Acute (7) Substance abuse: Status: Acute Critical Care Time Critical Care Time (minutes): 60
[2020-09-18] MEDS: fentaNYL citrate/NS 1,000 MCG/100 ML PLAST..BAG 20 MCG IVCONT ×3 (11:31→21:26)
[2020-09-18 11:48] LABS: Glucose, Whole Blood 124 mg/dL (60-115)
[2020-09-18] MEDS: propofoL 1,000 MG/100 ML VIAL 5.99 MG IVCONT (14:24)
[2020-09-18 19:11] LABS: Glucose, Whole Blood 122 mg/dL (60-115)
[2020-09-18] MEDS: Enoxaparin Sodium 40 MG/0.4 ML SYRINGE SUBCUT (20:50)
[2020-09-19] VITALS (30 sets, daily range): BP systolic 93–126; BP diastolic 50–80; PULSE 48–75; RESP 28–31; TEMP 36.1–37.2; O2SAT 88–96
[2020-09-19 00:37] LABS: Glucose, Whole Blood 99 mg/dL (60-115)
[2020-09-19] MEDS: propofoL 1,000 MG/100 ML VIAL 11.98 MG IVCONT (02:35)
[2020-09-19] MEDS: fentaNYL citrate/NS 1,000 MCG/100 ML PLAST..BAG 20 MCG IVCONT ×5 (02:47→23:01)
[2020-09-19] MEDS: Pantoprazole Sodium 40 MG/10 ML VIAL IVPUSH (05:51)
[2020-09-19] MEDS: Chlorhexidine Gluc Oral Rinse 15 ML MOUTHWASH BUCCAL ×3 (05:51→22:39)
[2020-09-19 05:52] LABS: VBG Base Excess 10.8 mmol/L; VBG HCO3 35 mmol/L (22-26); VBG pCO2 48 mmHg; VBG pH 7.47 (7.32-7.43); VBG pO2 51 mmHg
[2020-09-19 06:16] LABS: MANUAL DIFF FLAG NO
[2020-09-19 06:23] LABS: Basophils Percent Auto 0.1 % (0-2); Eosinophils Absolute Auto 0.3 X10*3/uL (0.0-0.4); Eosinophils Percent Auto 2.1 % (0-4); Hematocrit 29.6 % (42-52); Hemoglobin 9.5 g/dl (14.0-18.0); Imm Gran Abs Auto 0.04 X10*3/uL (0.00-0.03); Imm Gran Pct Auto 0.3 % (0.0-0.4); Lymphocytes Absolute Auto 3.1 X10*3/uL (1.2-4.9); Lymphocytes Percent Auto 25.1 % (20-40); Mean Corpuscular HGB Conc 32.1 g/dl (31.0-36.0); Mean Corpuscular Hemoglobin 30.6 pg (27.0-33.0); Mean Corpuscular Volume 95.5 fL (80-98); Mean Platelet Volume 11.1 fL (9.4-12.4); Monocytes Absolute Auto 1.3 X10*3/uL (0.1-1.2); Monocytes Percent Auto 10.7 % (2-11); NRBC Pct Auto 0.2 /100WBC (0.0-0.2); Neutrophils Absolute Auto 7.5 X10*3/uL (2.0-8.3); Neutrophils Percent Auto 61.7 % (45-73); Platelet Count 194 X10*3/uL (160-400); Red Cell Distribution Width 22.1 % (11.0-16.0); White Blood Count 12.2 X10*3/uL (4.8-10.8)
[2020-09-19 06:29] LABS: Venous Blood Gas Refer to POC result
[2020-09-19 06:51] LABS: Alanine Aminotransferase 24 U/L (0-40); Albumin Level 3.1 g/dL (3.5-5.0); Alkaline Phosphatase 108 U/L (39-117); Anion Gap 8 (12-20); Aspartate Amino Transferase 49 U/L (5-37); Bilirubin Total 1.2 mg/dL (0.0-1.0); Blood Urea Nitrogen 46 mg/dL (9-16); Calcium 8.5 mg/dL (8.4-10.2); Carbon Dioxide 33 mmol/L (22-29); Chloride 116 mmol/L (96-108); Creatinine Clr Calc Pharmacy 129.9; Estimated Glomerular Filt Rate > 60; Glucose Random 102 mg/dL (60-115); Magnesium 2.8 mg/dL (1.6-2.6); Phosphorus 1.9 mg/dL (2.7-4.5); Potassium 3.6 mmol/L (3.3-5.1); Sodium 153 mmol/L (135-145)
[2020-09-19] MEDS: Sulfameth/Trimet 800/160/20 ML 20 ML ORAL.SUSP PO ×2 (08:02→20:12)
--- NOTE | 2020-09-19 09:20 | P.PNCC_ITS ---
Subjective Subjective Date of Service: 09/19/20 Interval History: ICU day 5 for acute hypoxic respiratory failure 60-year-old gentleman, active 30+ pack-year smoker, with underlying history of hep C cirrhosis, diabetes mellitus, pulmonary hypertension likely secondary to left heart dysfunction, diastolic congestive heart failure, polysubstance abuse admitted on 09/02/2020 with progressive dyspnea. He has been treated for congestive heart failure with some improvement until 09/13/2020 when he developed worsening dyspnea and oxygen requirements. His CT chest angiogram has been negative for pulmonary emboli, but he has significant bilateral pulmonary edema versus diffuse ground-glass infiltrates. COVID-19 negative. His cultures remain negative today. 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 Patient with progressive hypoxemia requiring initiation of noninvasive positive pressure ventilation on 09/14/2020 and intubation on 09/16/2020. No events overnight. FiO2 requirements and leukocytosis continue to improve. Physical Exam Vital Signs: Vital Signs: Last Vital Signs Temp 98.6 F 09/19/20 06:00 Pulse 53 09/19/20 06:00 Resp 30 H 09/19/20 06:00 BP 113/55 L 09/19/20 06:00 Pulse Ox 94 09/19/20 06:00 Oxygen Flow Rate 15 09/15/20 02:40 Body Mass Index 29.8 Const: General: no acute distress and other (Sedated on the vent, arousable with sedation vacation.) Eyes: Sclerae: sclerae normal EOM: EOMs intact bilaterally Neck: Neck: Yes no lymphadenopathy, Yes trachea midline and Yes supple Resp: Effort & Inspection: normal respiratory effort and no respiratory distress Auscultation: clear to auscultation bilaterally Cardio: Rate: bradycardic Rhythm: regular rhythm Heart sounds: no gallops, no murmurs and no rubs GI: Palpation (GI): Soft to palpation and Other GI palpation findings present ( Nontender) Auscultation: normal bowel sounds Extrem: General: Yes no pedal edema, No clubbing and No cyanosis Objective Data Labs CBC & Chem 7: 09/19/20 05:57 09/19/20 05:57 Labs: Laboratory Results - last 24 hr 09/18/20 09/18/20 09/19/20 11:44 19:06 00:28 WBC RBC Hgb Hct MCV MCH MCHC RDW Plt Count MPV Immature Gran % (Auto) Neut % (Auto) Lymph % (Auto) [place] % (Auto) Eos % (Auto) Baso % (Auto) Lymph # (Auto) [place] # (Auto) Eos # (Auto) Baso # (Auto) Abs Immat Gran (auto) Absolute Neuts (auto) Absolute Nucleated RBC Nucleated RBC % (auto) VBG pH VBG pCO2 VBG pO2 VBG HCO3 VBG O2 Saturation VBG Base Excess Sodium Potassium Chloride Carbon Dioxide Anion Gap BUN Creatinine Estim Creat Clear Calc Estimated GFR POC Glucose 124 H 122 H 99 Random Glucose Calcium Phosphorus Magnesium Total Bilirubin AST ALT Alkaline Phosphatase Total Protein Albumin 09/19/20 09/19/20 09/19/20 05:46 05:57 05:57 WBC 12.2 H RBC 3.10 L Hgb 9.5 L Hct 29.6 L MCV 95.5 MCH 30.6 MCHC 32.1 RDW 22.1 H Plt Count 194 MPV 11.1 Immature Gran % (Auto) 0.3 Neut % (Auto) 61.7 Lymph % (Auto) 25.1 [place] % (Auto) 10.7 Eos % (Auto) 2.1 Baso % (Auto) 0.1 Lymph # (Auto) 3.1 [place] # (Auto) 1.3 H Eos # (Auto) 0.3 Baso # (Auto) 0.0 Abs Immat Gran (auto) 0.04 H Absolute Neuts (auto) 7.5 Absolute Nucleated RBC 0.020 H Nucleated RBC % (auto) 0.2 VBG pH 7.47 H VBG pCO2 48 VBG pO2 51 VBG HCO3 35 H VBG O2 Saturation 82.0 VBG Base Excess 10.8 Sodium 153 H Potassium 3.6 Chloride 116 H Carbon Dioxide 33 H Anion Gap 8 L BUN 46 H Creatinine 0.73 Estim Creat Clear Calc 129.9 Estimated GFR > 60 POC Glucose Random Glucose 102 Calcium 8.5 Phosphorus 1.9 L Magnesium 2.8 H Total Bilirubin 1.2 H AST 49 H D ALT 24 Alkaline Phosphatase 108 Total Protein 6.0 L Albumin 3.1 L Microbiology Microbiology Results: Microbiology 09/17/20 12:45 Bronchial Alveo Lavage Gram Stain - Final 09/17/20 12:45 Bronchial Alveo Lavage - Final Staphylococcus epidermidis 09/15/20 03:34 Blood - Venous Blood Culture - Preliminary No growth after 48 hours. 09/15/20 03:37 Blood - Venous Blood Culture - Preliminary No growth after 48 hours. 09/02/20 12:30 Blood - Venous Blood Culture - Final No growth after 5 days. 09/02/20 12:10 Blood - Venous Blood Culture - Final No growth after 5 days. Progress Note: A&P Assessment and plan (1) Hepatitis C virus: Status: Acute Assessment and Plan: Assessment: 60-year-old gentleman with underlying multiple medical issues including hepatitis-C liver cirrhosis, congestive heart failure, hypoalbuminemia admitted with progressive dyspnea, now requiring ventilatory support Plan: Neuro: Underlying chronic microvascular cerebral disease. No acute issues at this time. Cardiac: Acute on chronic congestive heart failure. Pulmonary hypertension, started on sildenafil. Cardiology service care appreciated. Pulmonary: Acute hypoxic respiratory failure, likely multifactorial with contribution from underlying congestive heart failure, pulmonary hypertension likely secondary to left heart dysfunction, possible interstitial lung disease secondary to substance abuse, and possible PCP. Continue to titrate off ventilatory support as tolerated. Continues on empiric Solu-Medrol (as his pulmonary infiltrates are progressing, will increase to high-dose steroids for 3 days.) and treatment Bactrim regimen. DVT study is negative, CTA chest negative for pulmonary embolism. Bronchoscopy with bronchoalveolar lavage for PCP rule out today. CT chest today with no significant improvement and b ilateral infiltrates, appears to be more organizing and now with development of traction bronchiectasis. Renal: Non oliguric. Continue to monitor renal indices and urine output. Endo: No acute issues. GI: Underlying liver cirrhosis secondary to hepatitis-C. ID: Empirically covered with Bactrim for possible PCP. Cultures from bronchoalveolar lavage are pending. Heme/Onc: No acute issues. Psych: No acute issues. Miscellaneous: No acute issues. Prophylaxis: Lovenox, ppi Diet: Tube feeds Critical care time spent: 60 minutes (2) Liver cirrhosis: Status: Acute (3) Cerebral microvascular disease: Status: Acute (4) Pulmonary hypertension: Status: Acute (5) Non-rheumatic tricuspid valve insufficiency: Status: Acute (6) Acute on chronic right heart failure: Status: Acute (7) Acute respiratory failure with hypoxia: Status: Acute (8) Substance abuse: Status: Acute Critical Care Time Critical Care Time (minutes): 60
[2020-09-19 09:28] LABS: Glucose, Whole Blood 101 mg/dL (60-115)
[2020-09-19] MEDS: Sildenafil Citrate 20 MG TABLET PO ×3 (10:17→20:07)
[2020-09-19] MEDS: LORazepam 2 MG/ML VIAL IVPUSH ×3 (10:18→19:47)
[2020-09-19] MEDS: Miconazole 2 % Extra Thick Cr 56.7 Gm Tube 1 APPL TOPICAL ×2 (10:25→20:06)
[2020-09-19] MEDS: methylPREDNISolone Sod Succ 125 MG/2 ML VIAL 250 MG IVPUSH ×3 (10:26→22:39)
[2020-09-19 11:54] LABS: Glucose, Whole Blood 102 mg/dL (60-115)
[2020-09-19 17:42] LABS: Glucose, Whole Blood 180 mg/dL (60-115)
[2020-09-19] MEDS: Enoxaparin Sodium 40 MG/0.4 ML SYRINGE SUBCUT (20:05)
[2020-09-20] VITALS (30 sets, daily range): BP systolic 98–124; BP diastolic 48–66; PULSE 49–61; RESP 18–30; TEMP 36.2–36.7; O2SAT 90–93
[2020-09-20] MEDS: LORazepam 2 MG/ML VIAL IVPUSH ×2 (00:21→08:14)
[2020-09-20 01:07] LABS: Glucose, Whole Blood 147 mg/dL (60-115)
[2020-09-20] MEDS: fentaNYL citrate/NS 1,000 MCG/100 ML PLAST..BAG 20 MCG IVCONT ×2 (04:11→09:16)
[2020-09-20] MEDS: methylPREDNISolone Sod Succ 125 MG/2 ML VIAL 250 MG IVPUSH ×3 (04:12→15:15)
[2020-09-20 05:29] LABS: Basophils Percent Auto 0.1 % (0-2); Hemoglobin 10.1 g/dl (14.0-18.0); Imm Gran Abs Auto 0.05 X10*3/uL (0.00-0.03); Imm Gran Pct Auto 0.5 % (0.0-0.4); Lymphocytes Absolute Auto 0.7 X10*3/uL (1.2-4.9); Lymphocytes Percent Auto 6.9 % (20-40); MANUAL DIFF FLAG NO; Mean Corpuscular HGB Conc 32.6 g/dl (31.0-36.0); Mean Corpuscular Hemoglobin 31.1 pg (27.0-33.0); Mean Corpuscular Volume 95.4 fL (80-98); Mean Platelet Volume 12.3 fL (9.4-12.4); Monocytes Absolute Auto 0.3 X10*3/uL (0.1-1.2); Monocytes Percent Auto 2.9 % (2-11); Neutrophils Absolute Auto 9.4 X10*3/uL (2.0-8.3); Neutrophils Percent Auto 89.6 % (45-73); Platelet Count 197 X10*3/uL (160-400); Red Blood Count 3.25 X10*6/uL (4.60-5.80); Red Cell Distribution Width 21.6 % (11.0-16.0); White Blood Count 10.5 X10*3/uL (4.8-10.8)
[2020-09-20 05:39] LABS: VBG Base Excess 3.9 mmol/L; VBG HCO3 26 mmol/L (22-26); VBG pCO2 34 mmHg; VBG pH 7.49 (7.32-7.43); VBG pO2 112 mmHg
[2020-09-20 05:46] LABS: Venous Blood Gas Refer to POC result
[2020-09-20 06:07] LABS: Albumin Level 2.9 g/dL (3.5-5.0); Anion Gap 10 (12-20); Blood Urea Nitrogen 35 mg/dL (9-16); Calcium 8.5 mg/dL (8.4-10.2); Carbon Dioxide 29 mmol/L (22-29); Chloride 114 mmol/L (96-108); Creatinine Clr Calc Pharmacy 141.6; Estimated Glomerular Filt Rate > 60; Glucose Random 187 mg/dL (60-115); Magnesium 2.7 mg/dL (1.6-2.6); Phosphorus 2.9 mg/dL (2.7-4.5); Potassium 4.6 mmol/L (3.3-5.1); Sodium 148 mmol/L (135-145)
[2020-09-20] MEDS: Chlorhexidine Gluc Oral Rinse 15 ML MOUTHWASH BUCCAL ×2 (06:34→13:31)
[2020-09-20] MEDS: Miconazole 2 % Extra Thick Cr 56.7 Gm Tube 1 APPL TOPICAL ×2 (09:15→21:03)
[2020-09-20] MEDS: Sildenafil Citrate 20 MG TABLET PO ×3 (09:16→21:02)
[2020-09-20] MEDS: Sulfameth/Trimet 800/160/20 ML 20 ML ORAL.SUSP PO ×2 (09:16→21:03)
[2020-09-20 10:09] LABS: VBG Base Excess 8.4 mmol/L; VBG HCO3 33 mmol/L (22-26); VBG pCO2 48 mmHg; VBG pH 7.44 (7.32-7.43); VBG pO2 48 mmHg
--- NOTE | 2020-09-20 10:17 | MHC.CLN ---
F/U PT IS OFF PROPOFOL PT CURRENTLY RECEIVING GLUCERNA AT MAX RATE 40CC/HR WITH 300CC FREE WATER FLUSHES Q 6HRS PROVIDES 960KCALS, 40G PROTEIN, 2019CC TOTAL WATER FROM FORMULA AND FLUSHES. IF PROPOFOL TO REMAIN OFF; RECOMMEND INCREASING TF GLUCERNA AT MAX GOAL RATE 85CC/HR WITH 300CC FREE WATER FLUSHES Q 6HRS TO PROVIDE 2040KCALS (23KCALS/KG BASED ON CMW), 85G PROTEIN (.96G/KG), 2940CC TOTAL WATER (33CC/KG) MONITOR TOLERANCE, RESIDUALS AND LYTES
[2020-09-20 10:37] LABS: Venous Blood Gas Refer to POC result
[2020-09-20] MEDS: Lactulose 20 GM/30 ML SOLUTION OG-TUBE ×3 (11:22→17:54)
[2020-09-20 12:01] LABS: Glucose, Whole Blood 172 mg/dL (60-115)
--- NOTE | 2020-09-20 13:35 | MHC.CM.PN ---
Pt remains vented in ICU: FiO2 at 40% : bronch cx pending: No active vent weaning at this time: waiting for all cultures to result for changes in treatment plans. Pt's son, Juvenal updated by Original d/c plan was for a d/c to [facility] once medically stable. This will depend on ability of pt to vent wean.
--- NOTE | 2020-09-20 15:56 | P.PNCC_ITS ---
Subjective Subjective Date of Service: 09/20/20 Interval History: Mr. Jimenez was transferred to the ICU on September 16 bec of acute respiratory failure. The patient is a 60 yo M with the following PMHx: Cerebral microvascular disease 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 Diet-controlled diabetes mellitus HTN (hypertension) COPD Hepatitis C virus Liver cirrhosis Neuropathy Opioid use disorder, moderate Venous stasis dermatitis PTSD (post-traumatic stress disorder) Anxiety Major depression in partial remission Suicidal ideations Physical deconditioning Current smoker MEDICATIONS on admission: 1. Mirtazapine 7.5 mg qhs. 2. Ativan 0.5 mg q8 hr prn. 3. Iron. 4. Suboxone 1 pill daily. 5. Lasix 40 mg daily. 6. Gabapentin 400 mg tid. 7. Hydroxyzine 25 mg qhs prn. 8. Omeprazole 40 mg daily. 9. Seroquel 50 mg daily prn. 10. Spironolactone 50 mg daily. 11. Tizanidine 4 mg q8h. The patient is homeless, [facility] in a jail. He presented ambulatory to the ED on September 02 c/o cough, fatigue, fevers, shortness of breath, and increased LE edema x 5 days. Reportedly had been using bags of heroin for the prior 3 weeks. In the ED, SpO2 was 56% on room air, 90?s on 50% venti mask. He had bilat pitting edema. CXR showed diffuse bilat infiltrates, predom in the lower lobes; infectious vs inflamm vs pulmon edema. CT angiogram showed diffuse bilateral ground-glass infiltrates, with peripheral sparing. There are multiple compression fractures of the thoracic and lumbar vertebrae. The inferior vena cava was prominent. There was portal hypertension with varices. By my reading, the RV:LV ratio was increased to about 1.0, with at least top-normal RV size, and straightening if not bowing of the left heart border. There was no pul monary embolism. BNP was 1380, BUN/creat was 38/0.9 (baseline about 0.7) and trop was 58 x both determinations. WBC was 13, lactate was 2.5. COVID negative. The patient was admitted to Medicine and treated with antibiotics for possible pneumonia, and diuretics for heart failure. Echo done on September 03 showed normal LV systolic function with no regional wall motion abnormalities, ejection fraction 55-60%, with mildly increased LV wall thickness. There was grade 1 diastolic dysfunction. RV cavity size was mildly increased with dilated IVC, and RVSP estimate 45 mm. D-dimer on September 04 was >52,000 (the upper limit of the analyzer). A repeat noncontrast chest CT on September 04 showed slightly worse infiltrates, which the radiologist thought was most c/w pulmon edema. PCT was 0.15. The patient was reportedly improving. On September 12, Sat was 89% on 4L NC and the patient wanted to leave AMA. Repeat COVID on 09/04 was negative. Oxygenation worsened on September 13. Sat was 79% on room air. Repeat chest x- ray showed marked worsening of the diffuse bilateral airspace and interstitial infiltrates. He completed 5 days of cefepime and doxycycline, and was then put on Zosyn. His oxygenation deteriorated further and he had to be put on a non- rebreather face mask, satting 92%. He was seen by Pulmonary on September 14. He still had significant edema, with BUN and creatinine 15/0.6 and BNP down to 493. The patient was thought to have acute hypoxemic respiratory failure secondary to underlying acute on chronic diastolic heart failure, exacerbated by high bow albuminemia and 3rd spacing. Interstitial lung disease secondary to substance abuse was also in the differential. Albumin and diuresis was recommended. On September 15, the patient was transferred to the ICU on CPAP. Repeat COVID test was negative. Chest x-ray showed progressing bilateral infiltrates. The patient was started on empiric Solu-Medrol for possible heroin-associated interstitial lung disease, and Bactrim (for possible PCP). DVT studay was negative. He required tracheal intubation the next day. BUN/creat ratio gene to a peak of 61/0.8 as the patient was diuresed. The patient underwent diagn ostic bronchoscopy/BAL on 09/17. PCP PCR still pending. Repeat CT yesterday showed worse diffuse bilateral interstitial and alveolar infiltrates, altho his FiO2 has improved to 40%. He was started yesterday on a 3-day pulse of solumedrol. Of note, on 09/18, the patient developed bradycardia that seemed 2? propofol, so the propofol wad d/c?d and he was put on prn Ativan. On exam today, the patient is on a fentanyl drip at 200ug and was given a single dose of Ativan 2mg this morning. The patient is easily arousable and nodded his head yes to my question. HR is 50, SR. BP 101/54. On AC 20/450/40%/+10, RR is 20, PIP 30, Ve 8.8L, ETCO2 40, SpO2 91%. CBG this morning showed 7.44/48/+8. The patient has been afebrile throughout his hospital stay. PER, about 3mm. No JVD. Chest shows coarse breath sounds. The expiratory phase is normal. Heart rate and rhythm are regular and soft. No murmur or gallops. The abdomen is benign. He has minimal edema. LABORATORY DATA: Below. Notably, sodium is down to 148. BUN and creatinine are down to 35/0.6. IMAGING: As described above. Notably, chest CT in 2019 showed no acute lung dz, and the lung cuts from an abdominal CT on 08/15/2020 also showed clear lung yen. IMPRESSION: 1. Underlying chronic lung disease and cirrhosis, by history. 2. Worsening diffuse acute bilateral pulmonary infiltrates of undetermined etiology. Pneumocystis PC are is pending and in the meantime the patient is on Bactrim. The patient is also being treated for possible heroin-associated ILD. If the PCP comes back positive, we?ll complete a 10 day course of Bactrim. If he shows signif improvement from the pulse steroids, then we?d plan a 3-month course of prednisone. If there?s no improvement over the next two days, we?ll have to plan a lung biopsy. 3. VIKRAM. May have been slightly overdiuresed. Indices are coming back to normal now. 4. Neuropsych. Seems comfortable on the current regimen. 5. Nutrition. On tube feeds. 6. Underlying DM. Follow POCs. 7. Metabolic alkalosis. 2? diuresis. We?ll give him two days of Diamox. Critical care time (including full chart review, hospital course summary, and multiple telephone conversations with Dr. Mcgovern): 2+ hrs. Physical Exam Vital Signs: Vital Signs: Last Vital Signs Temp 97.3 F 09/20/20 15:53 Pulse 54 09/20/20 15:53 Resp 19 09/20/20 15:53 BP 103/56 L 09/20/20 15:53 Pulse Ox 92 09/20/20 15:53 Oxygen Flow Rate 15 09/15/20 02:40 Body Mass Index 29.8 Objective Data Labs CBC & Chem 7: 09/20/20 05:18 09/20/20 05:18 Labs: Laboratory Results - last 24 hr 09/19/20 09/20/20 09/20/20 17:36 00:20 05:18 WBC 10.5 RBC 3.25 L Hgb 10.1 L Hct 31.0 L MCV 95.4 MCH 31.1 MCHC 32.6 RDW 21.6 H Plt Count 197 MPV 12.3 Immature Gran % (Auto) 0.5 H Neut % (Auto) 89.6 H Lymph % (Auto) 6.9 L [place] % (Auto) 2.9 Eos % (Auto) 0.0 Baso % (Auto) 0.1 Lymph # (Auto) 0.7 L [place] # (Auto) 0.3 Eos # (Auto) 0.0 Baso # (Auto) 0.0 Abs Immat Gran (auto) 0.05 H Absolute Neuts (auto) 9.4 H Absolute Nucleated RBC 0.000 Nucleated RBC % (auto) 0.0 VBG pH VBG pCO2 VBG pO2 VBG HCO3 VBG O2 Saturation VBG Base Excess Sodium Potassium Chloride Carbon Dioxide Anion Gap BUN Creatinine Estim Creat Clear Calc Estimated GFR POC Glucose 180 H 147 H Random Glucose Calcium Phosphorus Magnesium Albumin 09/20/20 09/20/20 09/20/20 05:18 05:32 10:03 WBC RBC Hgb Hct MCV MCH MCHC RDW Plt Count MPV Immature Gran % (Auto) Neut % (Auto) Lymph % (Auto) [place] % (Auto) Eos % (Auto) Baso % (Auto) Lymph # (Auto) [place] # (Auto) Eos # (Auto) Baso # (Auto) Abs Immat Gran (auto) Absolute Neuts (auto) Absolute Nucleated RBC Nucleated RBC % (auto) VBG pH 7.49 H 7.44 H VBG pCO2 34 48 VBG pO2 112 48 VBG HCO3 26 33 H VBG O2 Saturation 99.0 80.0 VBG Base Excess 3.9 8.4 Sodium 148 H Potassium 4.6 D Chloride 114 H Carbon Dioxide 29 Anion Gap 10 L BUN 35 H Creatinine 0.67 Estim Creat Clear Calc 141.6 Estimated GFR > 60 POC Glucose Random Glucose 187 H D Calcium 8.5 Phosphorus 2.9 Magnesium 2.7 H Albumin 2.9 L 09/20/20 11:58 WBC RBC Hgb Hct MCV MCH MCHC RDW Plt Count MPV Immature Gran % (Auto) Neut % (Auto) Lymph % (Auto) [place] % (Auto) Eos % (Auto) Baso % (Auto) Lymph # (Auto) [place] # (Auto) Eos # (Auto) Baso # (Auto) Abs Immat Gran (auto) Absolute Neuts (auto) Absolute Nucleated RBC Nucleated RBC % (auto) VBG pH VBG pCO2 VBG pO2 VBG HCO3 VBG O2 Saturation VBG Base Excess Sodium Potassium Chloride Carbon Dioxide Anion Gap BUN Creatinine Estim Creat Clear Calc Estimated GFR POC Glucose 172 H Random Glucose Calcium Phosphorus Magnesium Albumin Microbiology Microbiology Results: Microbiology 09/17/20 12:45 Bronchial Alveo Lavage Fungal Identification - Preliminary Yeast 09/15/20 03:34 Blood - Venous Blood Culture - Final No growth after 5 days. 09/15/20 03:37 Blood - Venous Blood Culture - Final No growth after 5 days. 09/17/20 12:45 Bronchial Alveo Lavage Gram Stain - Final 09/17/20 12:45 Bronchial Alveo Lavage - Final Staphylococcus epidermidis 09/02/20 12:30 Blood - Venous Blood Culture - Final No growth after 5 days. 09/02/20 12:10 Blood - Venous Blood Culture - Final No growth after 5 days. Critical Care Time Critical Care Time (minutes): 120
[2020-09-20 18:10] LABS: Glucose, Whole Blood 189 mg/dL (60-115)
[2020-09-20] MEDS: fentaNYL citrate/NS 1,000 MCG/100 ML PLAST..BAG 10 MCG IVCONT (18:19)
[2020-09-20] MEDS: Enoxaparin Sodium 40 MG/0.4 ML SYRINGE SUBCUT (21:01)
[2020-09-20] MEDS: acetaZOLAMIDE 250 MG TABLET 500 MG G-TUBE (21:03)
[2020-09-21] VITALS (30 sets, daily range): BP systolic 97–124; BP diastolic 53–71; PULSE 51–70; RESP 14–26; TEMP 36.3–36.8; O2SAT 90–92
[2020-09-21] MEDS: fentaNYL citrate/NS 1,000 MCG/100 ML PLAST..BAG 10 MCG IVCONT (01:20)
[2020-09-21] MEDS: Chlorhexidine Gluc Oral Rinse 15 ML MOUTHWASH BUCCAL ×4 (01:22→20:41)
[2020-09-21] MEDS: Lactulose 20 GM/30 ML SOLUTION OG-TUBE ×7 (01:22→23:38)
[2020-09-21] MEDS: methylPREDNISolone Sod Succ 125 MG/2 ML VIAL 250 MG IVPUSH ×5 (01:22→20:41)
[2020-09-21 01:44] LABS: Glucose, Whole Blood 166 mg/dL (60-115)
[2020-09-21 05:42] LABS: Basophils Percent Auto 0.1 % (0-2); Hematocrit 31.6 % (42-52); Hemoglobin 10.3 g/dl (14.0-18.0); Imm Gran Abs Auto 0.12 X10*3/uL (0.00-0.03); Imm Gran Pct Auto 0.6 % (0.0-0.4); Lymphocytes Absolute Auto 0.6 X10*3/uL (1.2-4.9); Lymphocytes Percent Auto 3.3 % (20-40); MANUAL DIFF FLAG SCAN; Mean Corpuscular HGB Conc 32.6 g/dl (31.0-36.0); Mean Corpuscular Hemoglobin 31.1 pg (27.0-33.0); Mean Corpuscular Volume 95.5 fL (80-98); Mean Platelet Volume 12.2 fL (9.4-12.4); Monocytes Absolute Auto 0.9 X10*3/uL (0.1-1.2); Neutrophils Absolute Auto 17.2 X10*3/uL (2.0-8.3); Platelet Count 193 X10*3/uL (160-400); Red Blood Count 3.31 X10*6/uL (4.60-5.80); Red Cell Distribution Width 21.7 % (11.0-16.0); SCAN SMEAR FLAG 1; White Blood Count 18.9 X10*3/uL (4.8-10.8)
[2020-09-21 05:56] LABS: Lactic Acid 1.6 mmol/L (0.5-2.0)
[2020-09-21 06:01] LABS: Glucose, Whole Blood 163 mg/dL (60-115)
[2020-09-21 06:15] LABS: Alanine Aminotransferase 27 U/L (0-40); Albumin Level 2.8 g/dL (3.5-5.0); Alkaline Phosphatase 142 U/L (39-117); Anion Gap 12 (12-20); Aspartate Amino Transferase 40 U/L (5-37); Blood Urea Nitrogen 33 mg/dL (9-16); Calcium 8.4 mg/dL (8.4-10.2); Carbon Dioxide 25 mmol/L (22-29); Chloride 113 mmol/L (96-108); Creatinine Clr Calc Pharmacy 129.9; Estimated Glomerular Filt Rate > 60; Glucose Random 176 mg/dL (60-115); Potassium 4.3 mmol/L (3.3-5.1); Sodium 146 mmol/L (135-145); Total Protein 5.9 g/dL (6.5-8.0)
[2020-09-21 06:23] LABS: SLIDE REVIEW VERIFIED
[2020-09-21] MEDS: LORazepam 2 MG/ML VIAL IVPUSH (07:44)
[2020-09-21] MEDS: HYDROmorphone HCl 1 MG/ML SYRINGE IVPUSH (07:56)
[2020-09-21] MEDS: propofoL 200 MG/20 ML VIAL 20 MG IVPUSH (08:03)
[2020-09-21] MEDS: fentaNYL citrate/NS 1,000 MCG/100 ML PLAST..BAG 20 MCG IVCONT ×4 (08:45→23:38)
[2020-09-21 08:57] LABS: VBG Base Excess 2.4 mmol/L; VBG HCO3 27 mmol/L (22-26); VBG pCO2 44 mmHg; VBG pH 7.39 (7.32-7.43); VBG pO2 127 mmHg
[2020-09-21 08:58] LABS: Venous Blood Gas Refer to POC result
[2020-09-21] MEDS: Miconazole 2 % Extra Thick Cr 56.7 Gm Tube 1 APPL TOPICAL ×2 (09:10→20:41)
[2020-09-21 09:48] LABS: Troponin-I High Sensitivity 30.7 ng/L (<3.5-35.0)
[2020-09-21] MEDS: Sulfameth/Trimet 800/160/20 ML 20 ML ORAL.SUSP PO ×2 (10:15→20:42)
[2020-09-21] MEDS: Sildenafil Citrate 20 MG TABLET PO ×3 (10:16→20:42)
[2020-09-21] MEDS: acetaZOLAMIDE 250 MG TABLET 500 MG G-TUBE (10:16)
[2020-09-21 10:48] LABS: VBG Base Excess 4.1 mmol/L; VBG HCO3 28 mmol/L (22-26); VBG pCO2 42 mmHg; VBG pH 7.43 (7.32-7.43); VBG pO2 59 mmHg
[2020-09-21 11:15] LABS: B Type Natriuretic Peptide 216 pg/mL (<100)
--- NOTE | 2020-09-21 11:49 | P.PNCC_ITS ---
Subjective Subjective Date of Service: 09/21/20 Interval History: Mr. Jimenez was transferred to the ICU on September 16 bec of acute respiratory failure. The patient is a 60 yo M with the following PMHx: Cerebral microvascular disease 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 Diet-controlled diabetes mellitus HTN (hypertension) COPD Hepatitis C virus Liver cirrhosis Neuropathy Opioid use disorder, moderate Venous stasis dermatitis PTSD (post-traumatic stress disorder) Anxiety Major depression in partial remission Suicidal ideations Physical deconditioning Current smoker MEDICATIONS on admission: 1. Mirtazapine 7.5 mg qhs. 2. Ativan 0.5 mg q8 hr prn. 3. Iron. 4. Suboxone 1 pill daily. 5. Lasix 40 mg daily. 6. Gabapentin 400 mg tid. 7. Hydroxyzine 25 mg qhs prn. 8. Omeprazole 40 mg daily. 9. Seroquel 50 mg daily prn. 10. Spironolactone 50 mg daily. 11. Tizanidine 4 mg q8h. The patient is homeless, lives in a [facility]. He presented ambulatory to the ED on September 02 c/o cough, fatigue, fevers, shortness of breath, and increased LE edema x 5 days. Reportedly had been using bags of heroin for the prior 3 weeks. In the ED, SpO2 was 56% on room air, 90?s on 50% venti mask. He had bilat pitting edema. CXR showed diffuse bilat infiltrates, predom in the lower lobes; infectious vs inflamm vs pulmon edema. CT angiogram showed diffuse bilateral ground-glass infiltrates, with peripheral sparing. There are multiple compression fractures of the thoracic and lumbar vertebrae. The inferior vena cava was prominent. There was portal hypertension with varices. By my reading, the RV:LV ratio was increased to about 1.0, with at least top-normal RV size, and straightening if not bowing of the left heart border. There was no pul monary embolism. BNP was 1380, BUN/creat was 38/0.9 (baseline about 0.7) and trop was 58 x both determinations. WBC was 13, lactate was 2.5. COVID negative. The patient was admitted to Medicine and treated with antibiotics for possible pneumonia, and diuretics for heart failure. Echo done on September 03 showed normal LV systolic function with no regional wall motion abnormalities, ejection fraction 55-60%, with mildly increased LV wall thickness. There was grade 1 diastolic dysfunction. RV cavity size was mildly increased with dilated IVC, and RVSP estimate 45 mm. D-dimer on September 04 was >52,000 (the upper limit of the analyzer). Repeat COVID on 09/04 was negative. A repeat noncontrast chest CT on September 04 showed slightly worse infiltrates, which the radiologist thought was most c/w pulmon edema. PCT was 0.15. The patient was reportedly improving with the above treatment. On September 12, Sat was 89% on 4L NC and the patient wanted to leave AMA. But oxygenation worsened on September 13. Sat was 79% on room air. Repeat chest x-ray showed marked worsening of the diffuse bilateral airspace and interstitial infiltrates. He completed 5 days of cefepime and doxycycline, and was then put on Zosyn. His oxygenation deteriorated further and he had to be put on a non-rebreather face mask, Sat?ing 92%. He was seen by Pulmonary on September 14. He still had significant edema, with BUN and creatinine 15/0.6 and BNP down to 493. The patient was thought to have acute hypoxemic respiratory failure secondary to acute on chronic diastolic heart failure, exacerbated by hypoalbuminemia and 3rd spacing. Interstitial lung disease secondary to substance abuse was also in the differential. Diuresis with albumin was recommended. On September 15, the patient required CPAP and was transferred to the ICU. Chest x-ray showed progressing bilateral infiltrates. Repeat COVID test was negative. The patient was started on empiric Solu-Medrol for possible heroin-associated interstitial lung disease, and Bactrim for possible PCP. DVT study was negative. He required tracheal intubation the next day. BUN/creat ratio gene to a peak of 61/0.8 as the patient was diuresed. The patient underwent diagnostic bronchoscopy/BAL on 09/17. Repeat CT September 19 showed worse diffuse bilateral interstitial and alveolar infiltrates, altho his FiO2 had improved to 40%. He was started on a 3-day pulse of solumedrol. Of note, on 09/18, the patient developed bradycardia that seemed 2? propofol, so the propofol wad d/c?d and he was put on prn Ativan. The patient has been on stable FiO2 40%/+10 since 09/19. On exam today, the patient is on a fentanyl drip at 200ug and was given a single dose of Ativan 2mg this morning. The patient is easily arousable and nodded his head yes to my question. HR is 56, SR. BP 107/61. On AC 20/450/40%/+10, RR is 24, Ve 10.5L, PIP 34, ETCO2 42, SpO2 90%. CBG this morning showed 7.39/44/+2. The patient has been afebrile throughout his hospital stay. PER, about 3mm. No JVD. Chest is fully CTA. The expiratory phase is normal. Heart rate and rhythm are regular and soft. No murmur or gallops. The abdomen is benign. He has no significant edema. LABORATORY DATA: Below. Notably, WBC spiked to 18 today. Sodium is down to 146. Renal indices steady. BNP 216, but trop normal. MICROBIOLOGY: Pneumocystis PCR still pending. IMAGING: CXR this morning shows severe interstitial dz. No change from 09/18. Notably, chest CT in 2019 showed no acute lung dz, and the lung cuts from an abdominal CT on 08/15/2020 also showed clear lung yen. IMPRESSION: 1. Underlying chronic lung disease and cirrhosis, by history. 2. Worsening diffuse acute bilateral pulmonary infiltrates of undetermined etiology. Pneumocystis PCR is pending and in the meantime the patient is on Bactrim. The patient is also being treated for possible heroin-associated ILD. If the PCP comes back positive, we?ll complete a 10 day course of Bactrim. Today is day #3 of pulse steroids. If he shows significant improvement from the pulse steroids by tomorrow or the next day, then we?d plan a 3-month course of prednisone. If there?s no improvement, we?d have to consider a lung biopsy. Discussed a lung biopsy with Dr. Jacinto. He wouldn?t consider it, in his opinion it would likely lead to the of the patient. 3. VIKRAM. May have been slightly overdiuresed. Indices are coming back to normal now. 4. Neuropsych. Seems comfortable on the current regimen. 5. Nutrition. On tube feeds. 6. Underlying DM. POCs are in range, without treatment. 7. Metabolic alkalosis. 2? diuresis. Resolved post Diamox. Critical care time (including mult visits to the bedside): 1 hr. Physical Exam Vital Signs: Vital Signs: Last Vital Signs Temp 97.9 F 09/21/20 11:00 Pulse 60 09/21/20 11:00 Resp 22 H 09/21/20 11:00 BP 111/56 L 09/21/20 11:00 Pulse Ox 90 L 09/21/20 11:00 Oxygen Flow Rate 15 09/15/20 02:40 Body Mass Index 29.8 Objective Data Labs CBC & Chem 7: 09/21/20 05:15 09/21/20 05:15 Labs: Laboratory Results - last 24 hr 09/20/20 09/20/20 09/21/20 11:58 17:55 01:40 WBC RBC Hgb Hct MCV MCH MCHC RDW Plt Count MPV Immature Gran % (Auto) Neut % (Auto) Lymph % (Auto) [place] % (Auto) Eos % (Auto) Baso % (Auto) Lymph # (Auto) [place] # (Auto) Eos # (Auto) Baso # (Auto) Abs Immat Gran (auto) Absolute Neuts (auto) Absolute Nucleated RBC Nucleated RBC % (auto) Smear Tech's Comments VBG pH VBG pCO2 VBG pO2 VBG HCO3 VBG O2 Saturation VBG Base Excess Sodium Potassium Chloride Carbon Dioxide Anion Gap BUN Creatinine Estim Creat Clear Calc Estimated GFR POC Glucose 172 H 189 H 166 H Random Glucose Lactic Acid Calcium Total Bilirubin AST ALT Alkaline Phosphatase Troponin I High Sens B-Natriuretic Peptide Total Protein Albumin 09/21/20 09/21/20 09/21/20 05:15 05:15 05:15 WBC 18.9 H RBC 3.31 L Hgb 10.3 L Hct 31.6 L MCV 95.5 MCH 31.1 MCHC 32.6 RDW 21.7 H Plt Count 193 MPV 12.2 Immature Gran % (Auto) 0.6 H Neut % (Auto) 91.0 H Lymph % (Auto) 3.3 L [place] % (Auto) 5.0 Eos % (Auto) 0.0 Baso % (Auto) 0.1 Lymph # (Auto) 0.6 L [place] # (Auto) 0.9 Eos # (Auto) 0.0 Baso # (Auto) 0.0 Abs Immat Gran (auto) 0.12 H Absolute Neuts (auto) 17.2 H Absolute Nucleated RBC 0.000 Nucleated RBC % (auto) 0.0 Smear Tech's Comments VERIFIED VBG pH VBG pCO2 VBG pO2 VBG HCO3 VBG O2 Saturation VBG Base Excess Sodium 146 H Potassium 4.3 Chloride 113 H Carbon Dioxide 25 Anion Gap 12 BUN 33 H Creatinine 0.73 Estim Creat Clear Calc 129.9 Estimated GFR > 60 POC Glucose Random Glucose 176 H Lactic Acid 1.6 Calcium 8.4 Total Bilirubin 1.0 AST 40 H ALT 27 Alkaline Phosphatase 142 H D Troponin I High Sens B-Natriuretic Peptide Total Protein 5.9 L Albumin 2.8 L 09/21/20 09/21/20 09/21/20 05:15 05:15 05:48 WBC RBC Hgb Hct MCV MCH MCHC RDW Plt Count MPV Immature Gran % (Auto) Neut % (Auto) Lymph % (Auto) [place] % (Auto) Eos % (Auto) Baso % (Auto) Lymph # (Auto) [place] # (Auto) Eos # (Auto) Baso # (Auto) Abs Immat Gran (auto) Absolute Neuts (auto) Absolute Nucleated RBC Nucleated RBC % (auto) Smear Tech's Comments VBG pH 7.43 VBG pCO2 42 VBG pO2 59 VBG HCO3 28 H VBG O2 Saturation 89.0 VBG Base Excess 4.1 Sodium Potassium Chloride Carbon Dioxide Anion Gap BUN Creatinine Estim Creat Clear Calc Estimated GFR POC Glucose 163 H Random Glucose Lactic Acid Calcium Total Bilirubin AST ALT Alkaline Phosphatase Troponin I High Sens 30.7 D B-Natriuretic Peptide Total Protein Albumin 09/21/20 09/21/20 08:51 10:23 WBC RBC Hgb Hct MCV MCH MCHC RDW Plt Count MPV Immature Gran % (Auto) Neut % (Auto) Lymph % (Auto) [place] % (Auto) Eos % (Auto) Baso % (Auto) Lymph # (Auto) [place] # (Auto) Eos # (Auto) Baso # (Auto) Abs Immat Gran (auto) Absolute Neuts (auto) Absolute Nucleated RBC Nucleated RBC % (auto) Smear Tech's Comments VBG pH 7.39 VBG pCO2 44 VBG pO2 127 VBG HCO3 27 H VBG O2 Saturation 99.0 VBG Base Excess 2.4 Sodium Potassium Chloride Carbon Dioxide Anion Gap BUN Creatinine Estim Creat Clear Calc Estimated GFR POC Glucose Random Glucose Lactic Acid Calcium Total Bilirubin AST ALT Alkaline Phosphatase Troponin I High Sens B-Natriuretic Peptide 216 H Total Protein Albumin Microbiology Microbiology Results: Microbiology 09/17/20 12:45 Bronchial Alveo Lavage Fungal Identification - Preliminary Yeast 09/15/20 03:34 Blood - Venous Blood Culture - Final No growth after 5 days. 09/15/20 03:37 Blood - Venous Blood Culture - Final No growth after 5 days. 09/17/20 12:45 Bronchial Alveo Lavage Gram Stain - Final 09/17/20 12:45 Bronchial Alveo Lavage - Final Staphylococcus epidermidis 09/02/20 12:30 Blood - Venous Blood Culture - Final No growth after 5 days. 09/02/20 12:10 Blood - Venous Blood Culture - Final No growth after 5 days. Critical Care Time Critical Care Time (minutes): 60
[2020-09-21 11:54] LABS: Glucose, Whole Blood 184 mg/dL (60-115)
--- NOTE | 2020-09-21 13:00 | CA_ITS ---
Transthoracic Echocardiogram Limited Patient (Last, First, Middle): Mirza Jimenez G Gender: Male Date of : 1960 Age: 60 Procedure Date: 09/21/2020 Procedure Type: Transthoracic Echocardiogram Limited Location: ICU Height: 185.42 cm Weight: 99.79 kg BSA: 2.24 m2 Heart Rate: bpm BP: 106 / 57 mmHg Echo Vasc Tech: ANTONIA Referring MD: García Cevallos Developmental Behavioral Physician: Bennett Jones MD Symptoms: f/u acute respiratory failure, r/o CHF Study Quality: Fair ECG Rhythm: Sinus Conclusions: - 1. Normal biventricular function 2. Normal RV systolic pressure Findings Left Ventricle Normal left ventricular size, thickness, and systolic function. The visually estimated ejection fraction is between 60-65%. Diastolic function is normal for age. Right Ventricle Normal right ventricular cavity size and systolic function. Atria The left atrium is normal in size. Interatrial shunt cannot be excluded. The right atrium was not well visualized. Tricuspid Valve The right ventricular systolic pressure is normal. The right ventricular systolic pressure is 25 mmHg. There is no evidence of pulmonary hypertension. Prior Study Comparison Changes noted compared to prior study dated: 09/03/2020. RV systolic pressure and right atrial pressures have improved Measurements 2D Linear Measurements IVSd: 1.20 0.6-0.9/0.6-1.0 cm LVIDd: 5.08 3.9-5.3/4.2-5.9 cm LVIDd Index: 2.27 2.4-3.2/2.2-3.1 cm/m2 LVIDs: 3.10 2.0-3.6 cm LVPWd: 1.20 0.7-1.1 cm LV Mass: 402.15 67-162/88-224 g LV Mass Index: 179.53 43-95/49-115 g/m2 2D Systolic Function EF 4C: 69.90 >55% EF 2C: 65.50 >55% EF BiP: 66.90 >55% Mitral Valve MV Pk E: 0.86 MV PK A: 0.79 MV Decel Time: 201.00 E/A: 1.10 E'Lateral: 9.19 E'Medial: 8.99 E/E' Med: 9.60 E/E' Lat: 9.30 PHT: 59.00 MVA PHT: 3.73 Decel Rogers: 4.28 Diastolic Function MV Pk E: 0.86 MV Pk A: 0.79 E/A: 1.10 E'Medial: 8.99 E/E' Med: 9.60 E' Laterial: 9.19 E/E' Lat: 9.30 Tricuspid Valve TR Pk Sharif: 2.37 TR Pk Grad: 22.00 RA Press: 3.00 RVSP: 25.00 Updated in Other Vendor System with Status of Final Bennett Jones MD electronically signed on 09/21/2020 3:40:33 PM with status of Final
[2020-09-21 15:22] LABS: Venous Blood Gas Refer to POC result
--- NOTE | 2020-09-21 16:43 | PC.NURSE ---
S/E Afebrile Sedated on Fentanyl maxed out ; Ativan PRN for agitation Pupils 3mm, sluggish SR/SB 50-60's; occasional PACs Echo ordered and completed R IJ TLC patent LS dim bilateral bases #8 ETT 24cm @ lip ; Vent settings unchanged Unsynchronized w/ vent - Propofol 20mg IVP administered w/ good effect PCP test pending Tolerating tube feeds well ; 300 H20 flushes q6hr Urine output 30-60cc/hr, concentrated Fungal rash to buttocks/porter Air loss bed & prevlon pad in place
[2020-09-21] MEDS: Magnesium Citrate 300 ML SOLUTION PO (17:38)
[2020-09-21] MEDS: Enoxaparin Sodium 40 MG/0.4 ML SYRINGE SUBCUT (20:41)
[2020-09-22] VITALS (30 sets, daily range): BP systolic 90–125; BP diastolic 44–72; PULSE 46–81; RESP 16–24; TEMP 35.7–36.6; O2SAT 0–97
[2020-09-22] MEDS: Lactulose 20 GM/30 ML SOLUTION OG-TUBE ×4 (04:04→14:29)
[2020-09-22] MEDS: fentaNYL citrate/NS 1,000 MCG/100 ML PLAST..BAG 20 MCG IVCONT ×2 (04:04→08:29)
[2020-09-22] MEDS: methylPREDNISolone Sod Succ 125 MG/2 ML VIAL 250 MG IVPUSH (04:04)
[2020-09-22 05:22] LABS: VBG Base Excess 5.3 mmol/L; VBG HCO3 31 mmol/L (22-26); VBG pCO2 52 mmHg; VBG pH 7.38 (7.32-7.43); VBG pO2 60 mmHg
[2020-09-22] MEDS: Chlorhexidine Gluc Oral Rinse 15 ML MOUTHWASH BUCCAL ×3 (05:28→20:58)
[2020-09-22 05:41] LABS: Basophils Percent Auto 0.1 % (0-2); Hematocrit 34.5 % (42-52); Hemoglobin 11.1 g/dl (14.0-18.0); Lymphocytes Absolute Auto 0.8 X10*3/uL (1.2-4.9); MANUAL DIFF FLAG SCAN; Mean Corpuscular HGB Conc 32.2 g/dl (31.0-36.0); Mean Corpuscular Hemoglobin 30.4 pg (27.0-33.0); Mean Corpuscular Volume 94.5 fL (80-98); Mean Platelet Volume 12.1 fL (9.4-12.4); Monocytes Absolute Auto 0.8 X10*3/uL (0.1-1.2); Monocytes Percent Auto 4.3 % (2-11); Neutrophils Absolute Auto 17.5 X10*3/uL (2.0-8.3); Neutrophils Percent Auto 90.6 % (45-73); Platelet Count 197 X10*3/uL (160-400); Red Blood Count 3.65 X10*6/uL (4.60-5.80); Red Cell Distribution Width 21.6 % (11.0-16.0); SCAN SMEAR FLAG 1; White Blood Count 19.3 X10*3/uL (4.8-10.8)
[2020-09-22 06:03] LABS: SLIDE REVIEW VERIFIED
[2020-09-22 06:12] LABS: Anion Gap 12 (12-20); Blood Urea Nitrogen 34 mg/dL (9-16); C Reactive Protein 0.91 mg/dL (< or = 0.50); Calcium 8.9 mg/dL (8.4-10.2); Carbon Dioxide 28 mmol/L (22-29); Chloride 110 mmol/L (96-108); Creatinine Clr Calc Pharmacy 141.6; Estimated Glomerular Filt Rate > 60; Glucose Random 167 mg/dL (60-115); Magnesium 2.8 mg/dL (1.6-2.6); Phosphorus 3.7 mg/dL (2.7-4.5); Potassium 4.6 mmol/L (3.3-5.1); Sodium 145 mmol/L (135-145)
[2020-09-22 06:30] LABS: D Dimer 11540 NG/ML
[2020-09-22 06:35] LABS: Ferritin 460 ng/mL (20-250)
[2020-09-22 07:06] LABS: Procalcitonin 0.09 ng/mL
[2020-09-22] MEDS: LORazepam 2 MG/ML VIAL IVPUSH ×2 (07:17→20:55)
[2020-09-22 07:52] LABS: Venous Blood Gas Refer to POC result
[2020-09-22 09:51] LABS: Glucose Urine UA NEG (NEG); Leukocyte Esterase Urine NEG (NEG); Nitrite Urine NEG (NEG); PH 6.5 (5.0-8.0); Specific Gravity - Urine 1.025 (1.005-1.025); Urine Blood 1+ (NEG); Urine Ketones NEG (NEG); Urine Protein NEG (NEG-TRACE)
[2020-09-22 09:52] LABS: Appearance Urine CLEAR; Color Urine YELLOW
[2020-09-22] MEDS: methylPREDNISolone Sod Succ 40 MG/ML VIAL IVPUSH ×2 (10:02→21:03)
[2020-09-22] MEDS: Magnesium Citrate 300 ML SOLUTION PO (10:02)
[2020-09-22] MEDS: Sulfameth/Trimet 800/160/20 ML 20 ML ORAL.SUSP PO ×2 (10:02→20:58)
[2020-09-22] MEDS: Sildenafil Citrate 20 MG TABLET PO ×3 (10:02→20:58)
[2020-09-22 10:03] LABS: Mucus Urine TRACE /LPF
[2020-09-22] MEDS: Miconazole 2 % Extra Thick Cr 56.7 Gm Tube 1 APPL TOPICAL ×2 (10:10→20:59)
--- NOTE | 2020-09-22 10:12 | MHC.CLN ---
F/U PT's TF ON HOLD D/T HIGH RESIDUALS DISCUSSED DURING ROUNDS AND TF TO REMAIN ON HOLD UNTIL PT HAS BM RECOMMEND RE-STARTING AFTER BM; TF GLUCERNA AT MAX GOAL RATE 85CC/HR WITH 300CC FREE WATER FLUSHES Q 6HRS TO PROVIDE 2040KCALS (23KCALS/KG BASED ON CMW), 85G PROTEIN (.96G/KG), 2940CC TOTAL WATER (33CC/KG) MONITOR TOLERANCE, RESIDUALS AND LYTES
--- NOTE | 2020-09-22 12:41 | MHC.CM.PN ---
Addendum entered by Shannan Edmondson 09/22/20 13:06: Review of past visits (2018 to present) note pt's refusal to name a next of kin and/or HCP despite assistance being provided by CM. It seems likely based on this review that he does not have one. Clinical updates sent to [facility] as this was pt's original d/c plan. CM will continue to follow Original Note: Call attempted to pt's son and reported HCP, Juvenal at [phone]: voice message states number is not accepting calls. ICU verifies this is contact number in the chart. ICU LIGHTNING ROD INSTALLER states Juvenal calls every other day or so and when he does, she will verify phone number/alternate. Call placed to [facility] to inquire on HCP status: they do not have one on file and did not have any family or next of kin contact as well. Call placed to where pt has had several INPT stays: they do not have a HCP on file.
[2020-09-22] MEDS: fentaNYL citrate/NS 1,000 MCG/100 ML PLAST..BAG 15 MCG IVCONT ×2 (13:02→18:37)
--- NOTE | 2020-09-22 17:33 | P.PNCC_ITS ---
Subjective Subjective Date of Service: 09/22/20 Interval History: Mr. Jimenez was transferred to the ICU on September 16 bec of acute respiratory failure. The patient is a 60 yo M with the following PMHx: Cerebral microvascular disease 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 Diet-controlled diabetes mellitus HTN (hypertension) COPD Hepatitis C virus Liver cirrhosis Neuropathy Opioid use disorder, moderate Venous stasis dermatitis PTSD (post-traumatic stress disorder) Anxiety Major depression in partial remission Suicidal ideations Physical deconditioning Current smoker MEDICATIONS on admission: 1. Mirtazapine 7.5 mg qhs. 2. Ativan 0.5 mg q8 hr prn. 3. Iron. 4. Suboxone 1 pill daily. 5. Lasix 40 mg daily. 6. Gabapentin 400 mg tid. 7. Hydroxyzine 25 mg qhs prn. 8. Omeprazole 40 mg daily. 9. Seroquel 50 mg daily prn. 10. Spironolactone 50 mg daily. 11. Tizanidine 4 mg q8h. The patient is homeless, lives in a snf. He presented ambulatory to the ED on September 02 c/o cough, fatigue, fevers, shortness of breath, and increased LE edema x 5 days. Reportedly had been using bags of heroin for the prior 3 weeks. In the ED, SpO2 was 56% on room air, 90?s on 50% venti mask. He had bilat pitting edema. CXR showed diffuse bilat infiltrates, predom in the lower lobes; infectious vs inflamm vs pulmon edema. CT angiogram showed diffuse bilateral ground-glass infiltrates, with peripheral sparing. There are multiple compression fractures of the thoracic and lumbar vertebrae. The inferior vena cava was prominent. There was portal hypertension with varices. By my reading, the RV:LV ratio was increased to about 1.0, with at least top-normal RV size, and straightening if not bowing of the left heart border. There was no pul monary embolism. BNP was 1380, BUN/creat was 38/0.9 (baseline about 0.7) and trop was 58 x both determinations. WBC was 13, lactate was 2.5. COVID negative. The patient was admitted to Medicine and treated with antibiotics for possible pneumonia, and diuretics for heart failure. Echo done on September 03 showed normal LV systolic function with no regional wall motion abnormalities, ejection fraction 55-60%, with mildly increased LV wall thickness. There was grade 1 diastolic dysfunction. RV cavity size was mildly increased with dilated IVC, and RVSP estimate 45 mm. D-dimer on September 04 was >52,000 (the upper limit of the analyzer). Repeat COVID on 09/04 was negative. A repeat noncontrast chest CT on September 04 showed slightly worse infiltrates, which the radiologist thought was most c/w pulmon edema. PCT was 0.15. The patient was reportedly improving with the above treatment. On September 12, Sat was 89% on 4L NC and the patient wanted to leave AMA. But oxygenation worsened on September 13. Sat was 79% on room air. Repeat chest x-ray showed marked worsening of the diffuse bilateral airspace and interstitial infiltrates. He completed 5 days of cefepime and doxycycline, and was then put on Zosyn. His oxygenation deteriorated further and he had to be put on a non-rebreather face mask, Sat?ing 92%. He was seen by Pulmonary on September 14. He still had significant edema, with BUN and creatinine 15/0.6 and BNP down to 493. The patient was thought to have acute hypoxemic respiratory failure secondary to acute on chronic diastolic heart failure, exacerbated by hypoalbuminemia and 3rd spacing. Interstitial lung disease secondary to substance abuse was also in the differential. Diuresis with albumin was recommended. On September 15, the patient required CPAP and was transferred to the ICU. Chest x-ray showed progressing bilateral infiltrates. Repeat COVID test was negative. The patient was started on empiric Solu-Medrol for possible heroin-associated interstitial lung disease, and Bactrim for possible PCP. DVT study was negative. He required tracheal intubation the next day. BUN/creat ratio gene to a peak of 61/0.8 as the patient was diuresed. The patient underwent diagnostic bronchoscopy/BAL on 09/17. Repeat CT September 19 showed worse diffuse bilateral interstitial and alveolar infiltrates, altho his FiO2 had improved to 40%. He was started on a 3-day pulse of solumedrol, which completed this morning. Pneumocystis PCR from the BAL is still pending (was sent out, may take a week). Of note, on 09/18, the patient developed bradycardia that seemed 2? propofol, so the propofol wad d/c?d and he was put on prn Ativan. The patient has been on s table FiO2 40%/+10 since 09/19. On exam today, the patient is on a fentanyl drip at 150ug and was given a single dose of Ativan 2mg this morning. The patient is easily arousable and nodded his head yes to my question. HR after arousal is 82, SR. BP 125/69. On AC 16/550/40%/+10, RR is 23, Ve 1lL, PIP 30, ETCO2 44, SpO2 88%. We turned his FiO2 up to 50%. CVBG this morning showed 7.38/52/+5. The patient has been afebrile throughout his hospital stay. PER, about 4mm. No gag reflex. No JVD. Chest is fully CTA. The expiratory phase is normal. RRR, normal S1 and S2, with no murmur or gallops. The abdomen is benign. We gave him Relistor and Mag Citrate earlier and he just had a big bowel movement. He has no significant edema. LABORATORY DATA: Below. Notably, WBC spiked to 18 yesterday, steady today. Sodium is down to 144. Renal indices steady. D-dimer way down to 11,000 (from 48,000 on 09/05). Ferritin, CRP, and PCT are low. MICROBIOLOGY: Pneumocystis PCR still pending. Urinalysis today was negative. Sputum blood and urine cultures were sent this morning. IMAGING: CXR yesterday morning shows severe interstitial dz. No change from 09/18. Notably, chest CT in 2019 showed no acute lung dz, and the lung cuts from an abdominal CT on 08/15/2020 also showed clear lung yen. ECHOCARDIOGRAM done yesterday by the [facility], interpreted by me: LV cavity volume normal; mild LVH; normal LV systolic function with ejection fraction 60+ %. RV slightly enlarged. No tricuspid Doppler jet. IVC is small, measured 1.3 cm. IMPRESSION: 1. Underlying chronic lung disease and cirrhosis, by history. 2. Worsening diffuse acute bilateral pulmonary infiltrates of undetermined etiology. Pneumocystis PCR is pending and in the meantime the patient is on Bactrim. The patient was also treated with pulse steroids for possible heroin- associated ILD. If the PCP comes back positive, we?ll complete a 10 day course of Bactrim. Today completes day #3 of pulse steroids, with no improvement in his clinical, roentgenographic, or oxygenation indices. We?ll do a steroid taper from here. Discussed a lung biopsy with Dr. Jacinto. He wouldn?t consider it, in his opinion it would likely lead to the of the patient. Given lack of a gag reflex, it appears that the patient will need a tracheostomy. 3. VIKRAM. May have been slightly overdiuresed. 4. Neuropsych. Seems comfortable on the current regimen. 5. Nutrition. On tube feeds. 6. Underlying DM. POCs are in range, without treatment. 7. Metabolic alkalosis. 2? diuresis. May need more Diamox. Critical care time: 50+ min. Physical Exam Vital Signs: Vital Signs: Last Vital Signs Temp 97.7 F 09/22/20 15:53 Pulse 81 09/22/20 17:00 Resp 19 09/22/20 17:00 BP 125/69 09/22/20 17:00 Pulse Ox 90 L 09/22/20 17:00 Oxygen Flow Rate 15 09/15/20 02:40 Body Mass Index 29.8 Objective Data Labs CBC & Chem 7: 09/22/20 05:15 09/22/20 05:15 Labs: Laboratory Results - last 24 hr 09/17/20 09/22/20 09/22/20 12:45 05:15 05:15 WBC 19.3 H RBC 3.65 L Hgb 11.1 L Hct 34.5 L MCV 94.5 MCH 30.4 MCHC 32.2 RDW 21.6 H Plt Count 197 MPV 12.1 Immature Gran % (Auto) 1.0 H Neut % (Auto) 90.6 H Lymph % (Auto) 4.0 L [place] % (Auto) 4.3 Eos % (Auto) 0.0 Baso % (Auto) 0.1 Lymph # (Auto) 0.8 L [place] # (Auto) 0.8 Eos # (Auto) 0.0 Baso # (Auto) 0.0 Abs Immat Gran (auto) 0.20 H Absolute Neuts (auto) 17.5 H Absolute Nucleated RBC 0.000 Nucleated RBC % (auto) 0.0 Smear Tech's Comments VERIFIED D-Dimer [id number] VBG pH VBG pCO2 VBG pO2 VBG HCO3 VBG O2 Saturation VBG Base Excess Sodium Potassium Chloride Carbon Dioxide Anion Gap BUN Creatinine Estim Creat Clear Calc Estimated GFR Random Glucose Calcium Phosphorus Magnesium Ferritin C-Reactive Protein Procalcitonin Urine Color Urine Appearance Urine pH Ur Specific [place] Urine Protein Urine Glucose (UA) Urine Ketones Urine Blood Urine Nitrite Ur Leukocyte Esterase Urine RBC Urine WBC Ur Squamous Epith Cells Urine Bacteria Urine Mucus Urine Yeast Ref Lab Test Result SEE NOTE 09/22/20 09/22/20 09/22/20 05:15 05:15 05:16 WBC RBC Hgb Hct MCV MCH MCHC RDW Plt Count MPV Immature Gran % (Auto) Neut % (Auto) Lymph % (Auto) [place] % (Auto) Eos % (Auto) Baso % (Auto) Lymph # (Auto) [place] # (Auto) Eos # (Auto) Baso # (Auto) Abs Immat Gran (auto) Absolute Neuts (auto) Absolute Nucleated RBC Nucleated RBC % (auto) Smear Tech's Comments D-Dimer VBG pH 7.38 VBG pCO2 52 VBG pO2 60 VBG HCO3 31 H VBG O2 Saturation 88.0 VBG Base Excess 5.3 Sodium 145 Potassium 4.6 Chloride 110 H Carbon Dioxide 28 Anion Gap 12 BUN 34 H Creatinine 0.67 Estim Creat Clear Calc 141.6 Estimated GFR > 60 Random Glucose 167 H Calcium 8.9 Phosphorus 3.7 Magnesium 2.8 H Ferritin 460 H C-Reactive Protein 0.91 H Procalcitonin 0.09 Urine Color Urine Appearance Urine pH Ur Specific [place] Urine Protein Urine Glucose (UA) Urine Ketones Urine Blood Urine Nitrite Ur Leukocyte Esterase Urine RBC Urine WBC Ur Squamous Epith Cells Urine Bacteria Urine Mucus Urine Yeast Ref Lab Test Result 09/22/20 09:23 WBC RBC Hgb Hct MCV MCH MCHC RDW Plt Count MPV Immature Gran % (Auto) Neut % (Auto) Lymph % (Auto) [place] % (Auto) Eos % (Auto) Baso % (Auto) Lymph # (Auto) [place] # (Auto) Eos # (Auto) Baso # (Auto) Abs Immat Gran (auto) Absolute Neuts (auto) Absolute Nucleated RBC Nucleated RBC % (auto) Smear Tech's Comments D-Dimer VBG pH VBG pCO2 VBG pO2 VBG HCO3 VBG O2 Saturation VBG Base Excess Sodium Potassium Chloride Carbon Dioxide Anion Gap BUN Creatinine Estim Creat Clear Calc Estimated GFR Random Glucose Calcium Phosphorus Magnesium Ferritin C-Reactive Protein Procalcitonin Urine Color YELLOW Urine Appearance CLEAR Urine pH 6.5 Ur Specific [place] 1.025 Urine Protein NEG Urine Glucose (UA) NEG Urine Ketones NEG Urine Blood 1+ H Urine Nitrite NEG Ur Leukocyte Esterase NEG Urine RBC 1-4 Urine WBC 1-4 Ur Squamous Epith Cells NONE Urine Bacteria NONE Urine Mucus TRACE Urine Yeast 1+ Ref Lab Test Result Microbiology Microbiology Results: Microbiology 09/17/20 12:45 Bronchial Alveo Lavage Fungal Identification - Preliminary Yeast 09/15/20 03:34 Blood - Venous Blood Culture - Final No growth after 5 days. 09/15/20 03:37 Blood - Venous Blood Culture - Final No growth after 5 days. 09/17/20 12:45 Bronchial Alveo Lavage Gram Stain - Final 09/17/20 12:45 Bronchial Alveo Lavage - Final Staphylococcus epidermidis 09/02/20 12:30 Blood - Venous Blood Culture - Final No growth after 5 days. 09/02/20 12:10 Blood - Venous Blood Culture - Final No growth after 5 days. Critical Care Time Critical Care Time (minutes): 60
[2020-09-22] MEDS: Enoxaparin Sodium 40 MG/0.4 ML SYRINGE SUBCUT (20:58)
[2020-09-23] VITALS (28 sets, daily range): BP systolic 90–136; BP diastolic 46–81; PULSE 44–75; RESP 5–16; TEMP 35.5–36.4; O2SAT 92–97
--- NOTE | 2020-09-23 | ECG_ITS ---
Test Reason : MARIANNA Blood Pressure : / mmHG Vent. Rate : 052 BPM Atrial Rate : 052 BPM P-R Int : 154 ms QRS Dur : 094 ms QT Int : 492 ms P-R-T Axes : 047 049 049 degrees QTc Int : 457 ms Sinus bradycardia Normal ECG When compared with ECG of 16-SEP-2020 03:32, When compared to the previous EKG of Vent. rate has decreased Referred By: Jericho Mack Electronically Signed By:MACI EDGAR MD
[2020-09-23 00:44] LABS: Anion Gap 9 (12-20); Blood Urea Nitrogen 36 mg/dL (9-16); Calcium 8.7 mg/dL (8.4-10.2); Carbon Dioxide 30 mmol/L (22-29); Chloride 112 mmol/L (96-108); Creatinine Clr Calc Pharmacy 128.2; Estimated Glomerular Filt Rate > 60; Glucose Fasting 155 mg/dL (60-99); Potassium 4.6 mmol/L (3.3-5.1); Sodium 146 mmol/L (135-145)
[2020-09-23 01:29] LABS: VBG Base Excess 9.9 mmol/L; VBG HCO3 36 mmol/L (22-26); VBG pCO2 56 mmHg; VBG pH 7.41 (7.32-7.43); VBG pO2 51 mmHg
[2020-09-23 01:33] LABS: Venous Blood Gas Refer to POC result
[2020-09-23] MEDS: fentaNYL citrate/NS 1,000 MCG/100 ML PLAST..BAG 2.5 MCG IVCONT (03:18)
[2020-09-23] MEDS: LORazepam 2 MG/ML VIAL IVPUSH (04:44)
[2020-09-23 05:39] LABS: VBG Base Excess 7.7 mmol/L; VBG HCO3 32 mmol/L (22-26); VBG pCO2 46 mmHg; VBG pH 7.44 (7.32-7.43); VBG pO2 50 mmHg
[2020-09-23 05:47] LABS: Basophils Percent Auto 0.1 % (0-2); Hemoglobin 10.2 g/dl (14.0-18.0); MANUAL DIFF FLAG SCAN; Neutrophils Percent Auto 84.6 % (45-73); PLT ABN DIST 1; SCAN SMEAR FLAG 1
[2020-09-23 05:48] LABS: Hematocrit 31.2 % (42-52); Imm Gran Abs Auto 0.11 X10*3/uL (0.00-0.03); Imm Gran Pct Auto 0.7 % (0.0-0.4); Lymphocytes Percent Auto 5.7 % (20-40); Mean Corpuscular HGB Conc 32.7 g/dl (31.0-36.0); Mean Corpuscular Volume 94.8 fL (80-98); Mean Platelet Volume 12.7 fL (9.4-12.4); Monocytes Absolute Auto 1.5 X10*3/uL (0.1-1.2); Monocytes Percent Auto 8.9 % (2-11); Neutrophils Absolute Auto 14.3 X10*3/uL (2.0-8.3); Platelet Count 176 X10*3/uL (160-400); Red Blood Count 3.29 X10*6/uL (4.60-5.80); Red Cell Distribution Width 21.7 % (11.0-16.0); White Blood Count 16.9 X10*3/uL (4.8-10.8)
[2020-09-23] MEDS: Chlorhexidine Gluc Oral Rinse 15 ML MOUTHWASH BUCCAL ×3 (05:50→21:09)
[2020-09-23 06:16] LABS: SLIDE REVIEW VERIFIED
[2020-09-23 06:24] LABS: Venous Blood Gas Refer to POC result
[2020-09-23 06:28] LABS: Alanine Aminotransferase 73 U/L (0-40); Albumin Level 2.5 g/dL (3.5-5.0); Alkaline Phosphatase 137 U/L (39-117); Anion Gap 8 (12-20); Aspartate Amino Transferase 75 U/L (5-37); Bilirubin Total 1.1 mg/dL (0.0-1.0); Blood Urea Nitrogen 38 mg/dL (9-16); Calcium 8.6 mg/dL (8.4-10.2); Carbon Dioxide 30 mmol/L (22-29); Chloride 112 mmol/L (96-108); Creatinine Clr Calc Pharmacy 131.7; Estimated Glomerular Filt Rate > 60; Glucose Random 151 mg/dL (60-115); Potassium 4.5 mmol/L (3.3-5.1); Sodium 145 mmol/L (135-145); Total Protein 5.3 g/dL (6.5-8.0)
[2020-09-23 07:54] LABS: Magnesium 3.1 mg/dL (1.6-2.6); Phosphorus 2.8 mg/dL (2.7-4.5)
[2020-09-23] MEDS: Sulfameth/Trimet 800/160/20 ML 20 ML ORAL.SUSP PO (09:58)
[2020-09-23] MEDS: Sildenafil Citrate 20 MG TABLET PO ×3 (09:59→21:09)
[2020-09-23] MEDS: methylPREDNISolone Sod Succ 40 MG/ML VIAL 30 MG IVPUSH ×2 (09:59→21:09)
[2020-09-23] MEDS: Miconazole 2 % Extra Thick Cr 56.7 Gm Tube 1 APPL TOPICAL ×2 (10:05→21:09)
--- NOTE | 2020-09-23 10:10 | MHC.CM.PN ---
Addendum entered by Shannan Edmondson 09/23/20 13:38: Attempts to contact pt's son Juvenal at [phone] made at the following times: 8:35 am 8:55 am 9:10 am 9:45 am 10:40 am 12:15 pm 1:35 pm Phone rang as busy all times after 9:10. No option to leave a message. Original Note: Attempted to contact pt's son Juvenal at [phone] x [phone]: no answer or ability to leave a message. ICU MD would like to speak with Juvenal re: trach placement for pt. [place] Leigh in [facility] [place] explained that pt does not have a HCP on file despite efforts to locate one and spotty contact with pt's son. Leigh states to continue to try contacting Juvenal on 09/23 at regular intervals and document findings. If no response, MD to document need for trach placement in regards to preserving or maintaining functional ability. The procedure can then occur. Information relayed to - CM will continue to attempt to contact Juvenal Referrals will be made for LTAC LOC once trach has been placed. At this time, [facility].
--- NOTE | 2020-09-23 15:11 | P.PNCC_ITS ---
Subjective Subjective Date of Service: 09/23/20 Interval History: Mr. Jimenez was transferred to the ICU on September 16 bec of acute respiratory failure. 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 Mirtazapine 7.5 mg qhs. 2. Ativan 0.5 mg q8 hr prn. 3. Iron. 4. Suboxone 1 pill daily. 5. Lasix 40 mg daily. 6. Gabapentin 400 mg tid. 7. Hydroxyzine 25 mg qhs prn. 8. Omeprazole 40 mg daily. 9. Seroquel 50 mg daily prn. 10. Spironolactone 50 mg daily. 11. Tizanidine 4 mg q8h. The patient is homeless, lives in a half-way. He presented ambulatory to the ED on September 02 c/o cough, fatigue, fevers, shortness of breath, and increased LE edema x 5 days. Reportedly had been using bags of heroin for the prior 3 weeks. In the ED, SpO2 was 56% on room air, 90?s on 50% venti mask. He had bilat pitting edema. CXR showed diffuse bilat infiltrates, infectious vs inflamm vs pulmon edema. CT angiogram showed diffuse bilateral ground-glass infiltrates, with peripheral sparing. There were multiple compression fractures of the thoracic and lumbar vertebrae. The inferior vena cava was prominent. There was portal hypertension with varices. By my reading, the RV:LV ratio was increased to about 1.0, with at least top-normal RV size, and straightening if not bowing of the left heart border. There was no pulmonary embolism. BNP was 1380, BUN/creat was 38/0.9 (baseline about 0.7) and trop was 58 x both determinations. WBC was 13, lactate was 2.5. COVID negative. The patient was admitted to Medicine and treated with antibiotics for possible pneumonia, and diuretics for heart failure. Echo done on September 03 showed normal LV systolic function with no regional wall motion abnormalities, ejection fraction 55-60%, with mildly increased LV wall thickness. There was grade 1 diastolic dysfunction. RV cavity size was mildly increased with dilated IVC, and RVSP estimate 45 mm. D-dimer on September 04 was >52,000 (the upper limit of the analyzer). Repeat COVID on 09/04 was negative. A repeat noncontrast chest CT on September 04 showed slightly worse infiltrates, which the radiologist thought was most c/w pulmon edema. PCT was 0.15. The patient was reportedly improving with the above treatment. On September 12, Sat was 89% on 4L NC and the patient wanted to leave AMA. But oxygenation wors ened on September 13. Sat was 79% on room air. Repeat chest x-ray showed marked worsening of the diffuse bilateral airspace and interstitial infiltrates. He completed 5 days of cefepime and doxycycline, and was then put on Zosyn. His oxygenation deteriorated further. He was seen by Pulmonary on September 14. The patient was thought to have acute hypoxemic respiratory failure secondary to acute on chronic diastolic heart failure, exacerbated by hypoalbuminemia and 3rd spacing. Interstitial lung disease secondary to substance abuse was also in the differential. He was given albumin and diuresed. On September 15, the patient required CPAP and was transferred to the ICU. Chest x-ray showed progressing bilateral infiltrates. Repeat COVID test was negative. The patient was started on empiric Solu-Medrol for possible heroin-associated interstitial lung disease, and Bactrim for possible PCP. DVT study was negative. He required tracheal intubation the next day. BUN/creat ratio gene to a peak of 61/0.8 as the patient was diuresed. The patient underwent diagnostic bronchoscopy/BAL on 09/17. Repeat CT September 19 showed worse diffuse bilateral interstitial and alveolar infiltrates, altho his FiO2 had improved to 40%. He was started on a 3-day pulse of solumedrol, which completed yesterday. Pneumocystis PCR from the BAL came back negative today. Of note, on 09/18, the patient developed bradycardia that seemed 2? propofol, so the propofol wad d/c?d and he was put on prn Ativan. The patient has been on stable FiO2 40%/+10 since 09/19. On exam today, the patient is on a fentanyl drip at 25ug and was given a single dose of Ativan 2mg this morning. The patient is easily arousable and interactive. He?s calm, no evidence of delirium. HR 67, SR. BP 136/81. On AC 16/550/40%/+10, RR is 16, PIP 32, ETCO2 45, SpO2 97%. CVBG this morning showed 7.44/46/+7. I switched him over to PSV. His spont rate was about 6, w Vt about 1000cc (i.e. opiate mediated breathing). We turned the fentanyl off. ETCO2 was 56, Sat was 95%. The patient has been afebrile throughout his hospital stay. PER, about 4mm. No gag reflex. No JVD. Chest is fully CTA. The expiratory phase is normal. RRR, normal S1 and S2, with no murmur or gallops. The abdomen is benign. We gave him Relistor yesterday and he had a huge BM. He has no significant edema. LABORATORY DATA: Below. Notably, WBC is down slightly. Renal indices steady. MICROBIOLOGY: Pneumocystis PCR negative. Urinalysis 09/22 negative, culture neg, sputum cult normal den, blood cultures neg so far. IMAGING: CXR 09/21 shows severe interstitial dz. No change from 09/18. Notably, chest CT in 2019 showed no acute lung dz, and the lung cuts from an abdominal CT on 08/15/2020 also showed clear lung yen. ECHOCARDIOGRAM done 09/21 by the [facility], interpreted by me: LV cavity volume normal; mild LVH; normal LV systolic function with ejection fraction 60+ %. RV slightly enlarged. No tricuspid Doppler jet. IVC is small, measured 1.3 cm. IMPRESSION: 1. Underlying chronic lung disease and cirrhosis, by history. 2. Worsening diffuse acute bilateral pulmonary infiltrates of undetermined etiology. Pneumocystis PCR came back negative; Bactrim was d/c?d. The patient was also treated with pulse steroids for possible heroin-associated ILD. Completed his 3-day course yesterday, with no apparent benefit. Will taper the steroids rapidly. Discussed a lung biopsy with Dr. Jacinto. He wouldn?t consider it. In his opinion it would likely lead to the of the patient. Given lack of a gag reflex, it appears that the patient will need a tracheostomy. Hopeful that we?ll do that tomorrow. 3. VIKRAM. May have been slightly overdiuresed. 4. Neuropsych. Seems comfortable on the current regimen. 5. Nutrition. On tube feeds. 6. Underlying DM. POCs are in range, without treatment. 7. Metabolic alkalosis. 2? diuresis. Continue Diamox. Critical care time: 60+ min. Physical Exam Vital Signs: Vital Signs: Last Vital Signs Temp 97.3 F 09/23/20 14:00 Pulse 54 09/23/20 15:00 Resp 5 L 09/23/20 15:00 BP 107/54 L 09/23/20 15:00 Pulse Ox 95 09/23/20 15:00 Oxygen Flow Rate 15 09/15/20 02:40 Body Mass Index 29.8 Objective Data Labs CBC & Chem 7: 09/23/20 05:32 09/23/20 05:32 Labs: Laboratory Results - last 24 hr 09/17/20 09/23/20 09/23/20 12:45 00:11 01:22 WBC RBC Hgb Hct MCV MCH MCHC RDW Plt Count MPV Immature Gran % (Auto) Neut % (Auto) Lymph % (Auto) [place] % (Auto) Eos % (Auto) Baso % (Auto) Lymph # (Auto) [place] # (Auto) Eos # (Auto) Baso # (Auto) Abs Immat Gran (auto) Absolute Neuts (auto) Absolute Nucleated RBC Nucleated RBC % (auto) Smear Tech's Comments VBG pH 7.41 VBG pCO2 56 VBG pO2 51 VBG HCO3 36 H VBG O2 Saturation 82.0 VBG Base Excess 9.9 Sodium 146 H Potassium 4.6 Chloride 112 H Carbon Dioxide 30 H Anion Gap 9 L BUN 36 H Creatinine 0.74 Estim Creat Clear Calc 128.2 Estimated GFR > 60 Random Glucose Fasting Glucose 155 H D Calcium 8.7 Phosphorus Magnesium Total Bilirubin AST ALT Alkaline Phosphatase Total Protein Albumin Ref Lab Test Result SEE NOTE 09/23/20 09/23/20 09/23/20 05:32 05:32 05:33 WBC 16.9 H RBC 3.29 L Hgb 10.2 L Hct 31.2 L MCV 94.8 MCH 31.0 MCHC 32.7 RDW 21.7 H Plt Count 176 MPV 12.7 H Immature Gran % (Auto) 0.7 H Neut % (Auto) 84.6 H Lymph % (Auto) 5.7 L [place] % (Auto) 8.9 Eos % (Auto) 0.0 Baso % (Auto) 0.1 Lymph # (Auto) 1.0 L [place] # (Auto) 1.5 H Eos # (Auto) 0.0 Baso # (Auto) 0.0 Abs Immat Gran (auto) 0.11 H Absolute Neuts (auto) 14.3 H Absolute Nucleated RBC 0.000 Nucleated RBC % (auto) 0.0 Smear Tech's Comments VERIFIED VBG pH 7.44 H VBG pCO2 46 VBG pO2 50 VBG HCO3 32 H VBG O2 Saturation 82.0 VBG Base Excess 7.7 Sodium 145 Potassium 4.5 Chloride 112 H Carbon Dioxide 30 H Anion Gap 8 L BUN 38 H Creatinine 0.72 Estim Creat Clear Calc 131.7 Estimated GFR > 60 Random Glucose 151 H Fasting Glucose Calcium 8.6 Phosphorus 2.8 Magnesium 3.1 H Total Bilirubin 1.1 H AST 75 H ALT 73 H Alkaline Phosphatase 137 H Total Protein 5.3 L Albumin 2.5 L Ref Lab Test Result Microbiology Microbiology Results: Microbiology 09/22/20 09:30 Blood - Venous Blood Culture - Preliminary No growth after 24 hours. 09/22/20 09:30 Blood - Venous Blood Culture - Preliminary No growth after 24 hours. 09/22/20 17:18 Sputum - Suctioned Gram Stain - Final 09/22/20 17:18 Sputum - Suctioned Sputum Culture - Preliminary Normal so far. 09/17/20 12:45 Bronchial Alveo Lavage Fungal Identification - Preliminary Yadira albicans 09/22/20 09:23 Urine [place] Urine Culture - Preliminary Yeast 09/15/20 03:34 Blood - Venous Blood Culture - Final No growth after 5 days. 09/15/20 03:37 Blood - Venous Blood Culture - Final No growth after 5 days. 09/17/20 12:45 Bronchial Alveo Lavage Gram Stain - Final 09/17/20 12:45 Bronchial Alveo Lavage - Final Staphylococcus epidermidis 09/02/20 12:30 Blood - Venous Blood Culture - Final No growth after 5 days. 09/02/20 12:10 Blood - Venous Blood Culture - Final No growth after 5 days. Critical Care Time Critical Care Time (minutes): 60
[2020-09-23 19:40] LABS: ABG Base Excess 7.7 mmol/L; ABG HCO3 33 mmol/L (22-26); ABG pCO2 54 mmHg (32-45); ABG pCO2 TC 52 mmHg (32-45); ABG pH TC 7.41 (7.35-7.45); ABG pO2 76 mmHg (83-108); ABG pO2 TC 72 (83-108)
--- NOTE | 2020-09-23 19:52 | PC.NURSE ---
Assumed care at 0700. Patient alert and following commands on Fentanyl gtt 25 mcg/kg/min. Patient with positive cough, no gag; pupils 4-5 mm and brisk. MD in to assess patient; plan for probable trach tomorrow. Fentanyl stopped at 1300 by MD. Patient appears comfortable and is responding to questions and comands appropriately and tracking, and was started on pressure support settings. ETT is #8 at 24 cm at the lip; ps settings 10/8 and 35%; SpO2 has been 90-93%; RR has been staying around 5-6 per minute, and MD is aware; RR up to 10 with nursing maneuvers; EtCo2 gene from 38-43 range up to stay in the 50-58 range, with one rise to 61. MD was notified. RT aware and discussed with MD. PA ordering ABG this evening. Patient minute volumes around 6; large tidal volumes 900-1000. Patient with some blood tinged inline/oral secretions initially, now clear/cream colored. Lung sounds dim throughout. Patient with sinus bradycardia in the 50's mostly, down to the 40's at times, and up to sinus rhythm at times on monitor, seemed to trend more toward sinus rhythm after application of sae hugger about 1300. Patient initially had oral core temp about 95.3, and the oral probe was placed deeper without change. Euthermic. TF restarted per , yuri, up to 30 cc/hour, well tolerated, H2O 300 ccs Q6 hours; urine outputs 35-50 per hour. Skin with palmar erythema bilaterally; photographed; and scattered bruising, reddish bruise to left hand dorsum. Attempts to reach patient family were unsuccessful today.
[2020-09-23] MEDS: Enoxaparin Sodium 40 MG/0.4 ML SYRINGE SUBCUT (21:08)
[2020-09-24] VITALS (30 sets, daily range): BP systolic 96–136; BP diastolic 47–88; PULSE 50–89; RESP 5–16; TEMP 36–37.1; O2SAT 89–126
[2020-09-24 04:10] LABS: ABG Refer to POC result
[2020-09-24] MEDS: LORazepam 2 MG/ML VIAL IVPUSH (04:12)
[2020-09-24 05:27] LABS: VBG Base Excess 7.3 mmol/L; VBG HCO3 33 mmol/L (22-26); VBG pCO2 53 mmHg; VBG pH 7.39 (7.32-7.43); VBG pO2 66 mmHg
[2020-09-24] MEDS: Chlorhexidine Gluc Oral Rinse 15 ML MOUTHWASH BUCCAL (05:30)
[2020-09-24 05:55] LABS: Basophils Percent Auto 0.1 % (0-2); Hemoglobin 10.2 g/dl (14.0-18.0); Neutrophils Percent Auto 84.9 % (45-73); SCAN SMEAR FLAG 1
[2020-09-24 05:57] LABS: Imm Gran Abs Auto 0.35 X10*3/uL (0.00-0.03); Imm Gran Pct Auto 2.3 % (0.0-0.4); Lymphocytes Absolute Auto 0.8 X10*3/uL (1.2-4.9); Lymphocytes Percent Auto 5.4 % (20-40); Mean Corpuscular HGB Conc 31.9 g/dl (31.0-36.0); Mean Corpuscular Hemoglobin 30.5 pg (27.0-33.0); Mean Corpuscular Volume 95.8 fL (80-98); Monocytes Absolute Auto 1.1 X10*3/uL (0.1-1.2); Monocytes Percent Auto 7.3 % (2-11); Neutrophils Absolute Auto 12.9 X10*3/uL (2.0-8.3); Platelet Count 183 X10*3/uL (160-400); Red Blood Count 3.34 X10*6/uL (4.60-5.80); Red Cell Distribution Width 22.2 % (11.0-16.0); White Blood Count 15.2 X10*3/uL (4.8-10.8)
[2020-09-24 05:58] LABS: MANUAL DIFF FLAG NO; PLT ABN DIST 1
[2020-09-24 06:05] LABS: Venous Blood Gas Refer to POC result
[2020-09-24 06:27] LABS: Alanine Aminotransferase 67 U/L (0-40); Albumin Level 2.6 g/dL (3.5-5.0); Alkaline Phosphatase 142 U/L (39-117); Anion Gap 9 (12-20); Aspartate Amino Transferase 58 U/L (5-37); Bilirubin Total 1.1 mg/dL (0.0-1.0); Blood Urea Nitrogen 38 mg/dL (9-16); Calcium 8.4 mg/dL (8.4-10.2); Carbon Dioxide 29 mmol/L (22-29); Chloride 112 mmol/L (96-108); Creatinine Clr Calc Pharmacy 189.7; Estimated Glomerular Filt Rate > 60; Glucose Random 158 mg/dL (60-115); Potassium 4.9 mmol/L (3.3-5.1); Sodium 145 mmol/L (135-145); Total Protein 5.4 g/dL (6.5-8.0)
--- NOTE | 2020-09-24 06:31 | PC.NURSE ---
Afebrile, VSS Pt off sedation since yesterday. Pt able to follow commands, weak cough, payne. Pt reamins on vent settings, mod amount of cream secretions suctioned inline. SR/SB on monitor. Rectal tube removed at 0400, U/O wnl. Funal infections noted in groin/abd folds, fungal cream applied. Bath given, repo q2hr, prevalon mattress used.
--- NOTE | 2020-09-24 06:36 | PC.NURSE ---
Tmax 103.3, VSS with levophed gtt for support. Sedated with Fentanyl, Propofol, and versed. Attempted to titrate fentanyl but pts WOB increased. Pupils sluggish, pt awakens with stimuli, payne when awaken and fights vent, weak cough. Vent settings remained the same, moderate amount of blood tinged secretions noted inline. SR on tele No BM, U/0 75ml/hr, bruising noted on abd. Bath given, repo q2hr, prevalon mattress used
[2020-09-24] MEDS: methylPREDNISolone Sod Succ 40 MG/ML VIAL 20 MG IVPUSH (08:44)
[2020-09-24] MEDS: Sildenafil Citrate 20 MG TABLET PO (08:44)
[2020-09-24] MEDS: Miconazole 2 % Extra Thick Cr 56.7 Gm Tube 1 APPL TOPICAL ×2 (08:44→21:40)
--- NOTE | 2020-09-24 10:11 | PM.CCPN ---
Subjective Subjective Date of Service: 09/24/20 Interval History: Mr. Jimenez was transferred to the ICU on September 16 bec of acute respiratory failure. 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 Mirtazapine 7.5 mg qhs. 2. Ativan 0.5 mg q8 hr prn. 3. Iron. 4. Suboxone 1 pill daily. 5. Lasix 40 mg daily. 6. Gabapentin 400 mg tid. 7. Hydroxyzine 25 mg qhs prn. 8. Omeprazole 40 mg daily. 9. Seroquel 50 mg daily prn. 10. Spironolactone 50 mg daily. 11. Tizanidine 4 mg q8h. The patient is homeless, lives in a detention. HISTORY OF PRESENT ILLNESS: He presented ambulatory to the ED on September 02 c/o cough, fatigue, fevers, shortness of breath, and increased LE edema x 5 days. Reportedly had been using bags of heroin for the prior 3 weeks. In the ED, SpO2 was 56% on room air, 90?s on 50% venti mask. He had bilat pitting edema. CXR showed diffuse bilat infiltrates, infectious vs inflamm vs pulmon edema. CT angiogram showed diffuse bilateral ground-glass infiltrates, with peripheral sparing. There were multiple compression fractures of the thoracic and lumbar vertebrae. The inferior vena cava was prominent. There was portal hypertension with varices. By my reading, the RV:LV ratio was increased to about 1.0, with at least top-normal RV size, and straightening if not bowing of the left heart border. There was no pulmonary embolism. BNP was 1380, BUN/creat was 38/0.9 (baseline about 0.7) and trop was 58 x both determinations. WBC was 13, lactate was 2.5. COVID negative. The patient was admitted to Medicine and treated with antibiotics for possible pneumonia, and diuretics for heart failure. Echo done on September 03 showed normal LV systolic function with no regional wall motion abnormalities, ejection fraction 55-60%, with mildly increased LV wall thickness. There was grade 1 diastolic dysfunction. RV cavity size was mildly increased with dilated IVC, and RVSP estimate 45 mm. D-dimer on September 04 was >52,000 (the upper limit of the analyzer). Repeat COVID on 09/04 was negative. A repeat noncontrast chest CT on September 04 showed slightly worse infiltrates, which the radiologist thought was most c/w pulmon edema. PCT was 0.15. The patient was reportedly improving with the above treatment. But oxygenation worsened on September 13. Repeat chest x-ray showed marked worsening of the diffuse bilateral airspace and interstitial infiltrates. He completed 5 days of cefepime and doxycycline, and was then put on Zosyn. His oxygenation deteriorated further. The patient was thought to have [id number]-[id number] diastolic heart failure, exacerbated by hypoalbuminemia and 3rd spacing. Interstitial lung disease secondary to substance abuse was also in the differential. He was given albumin and diuresed. On September 15, the patient required CPAP and was transferred to the ICU. Chest x-ray showed progressing bilateral infiltrates. Repeat COVID test was negative. The patient was started on empiric Solu-Medrol for possible heroin-associated interstitial lung disease, and Bactrim for possible PCP. DVT study was negative. He required tracheal intubation the next day. BUN/creat ratio gene to a peak of 61/0.8 as the patient was diuresed. The patient underwent diagnostic bronchoscopy/BAL on 09/17. Repeat CT September 19 showed worse diffuse bilateral interstitial and alveolar infiltrates, altho his FiO2 had improved to 40%. He was started on a 3-day pulse of solumedrol, which completed on 09/22. Pneumocystis PCR from the BAL came back negative, and Bactrim was discontinued. Of note, on 09/18, the patient developed bradycardia that seemed 2? propofol, so the propofol wad d/c?d and he was put on prn Ativan. He had been continued on high dose fentanyl infusion. The patient has been on stable FiO2 40%/+10 since 09/19. The fentanyl infusion was discontinued yesterday after the patient was switched to PSV and his resp rate was only 5-6, with tidal vols around the 1L . He stayed on PSV overnite. CVBG this morning showed 7.39/53/+7. This morning he?s awake and reasonably appropriate. He?s on no sedation or opiates. He?s calm, w no evidence of delirium. HR 69, BP 123/67. On PSV 5/35%/+5, RR was 7, with VT 900, Ve 7L, Sat 95%. The patient has been afebrile throughout his hospital stay. PER, about 4mm. Minimal gag reflex. No JVD. Chest is fully CTA, the expiratory phase is normal. RRR, normal S1 and S2, with no murmur or gallops. The abdomen is benign. He has 1+ anasarca. We extubated the patient to HFNC 60L/32%. Breathing easy with RR 10, Sat 95%. Had a reasonable cough. 100% clear airway. Able to say ?e?. Very flat affect, moderately hypoanimated. LABORATORY DATA: Below. Notably, WBC is down slightly. Renal indices down slightly. MICROBIOLOGY: Urinalysis, sputum, blood cultures from 09/22 neg so far. IMAGING: Last CXR 09/21 shows severe interstitial dz. No change from 09/18. Notably, chest CT in 2019 showed no acute lung dz, and the lung cuts from an abdominal CT on 08/15/2020 also showed clear lung yen. ECHOCARDIOGRAM done 09/21 by the [facility], interpreted by me: LV cavity volume normal; mild LVH; normal LV systolic function with ejection fraction 60+ %. RV slightly enlarged. No tricuspid Doppler jet. IVC is small, measured 1.3 cm. IMPRESSION: 1. Underlying chronic lung disease and cirrhosis, by history. 2. Worsening diffuse acute bilateral pulmonary infiltrates of undetermined etiology. Pneumocystis PCR came back negative; Bactrim was d/c?d. The patient was also treated with pulse steroids for possible heroin-associated ILD. Completed his 3-day course on 09/22, with no astounding result, but his oxygenation did slowly increase, and we were able to extubate him today. His WOB is entirely normal, which suggests near normal lung compliance. All that suggests a steroid benefit. I don?t necessarily think a f/u chest CT is necessary to prove it. Discussed with Dr. Mcgovern. The plan will be to continue Prednisone 60 mg daily (or the equivalent) for 3 months. Discussed a lung biopsy with Dr. Jacinto. He wouldn?t consider it. In his opinion it would likely lead to the of the patient. Had planned a trach for this coming Sunday. I?m leaving it on the schedule just in case. (Confidence that the patient will fly is not high.) 3. VIKRAM. May have been slightly overdiuresed. But he still has significant edema. His renal ratio is still high, likely bec of right heart failure. Will trial diuresis again. Lasix 20 mg IV bid. 4. Pulmonary HTN w RHF. We?ll continue the sildenafil. 5. Neuropsych. Seems comfortable at this time. 6. Nutrition. Will need a Kaofeed tube. I?ll put one in tomorrow. 7. Underlying DM. POCs are in range, without treatment. 7. Metabolic alkalosis. 2? diuresis. Continue Diamox. Critical care time (including mult reevals at the bedside): 60+ min. Physical Exam Vital Signs: Vital Signs: Last Vital Signs Temp 97.7 F 09/24/20 08:55 Pulse 73 09/24/20 10:00 Resp 9 L 09/24/20 10:00 BP 129/71 09/24/20 10:00 Pulse Ox 95 09/24/20 10:00 Oxygen Flow Rate 15 09/15/20 02:40 Body Mass Index 29.8 Objective Data Labs CBC & Chem 7: 09/24/20 05:20 09/24/20 05:20 Labs: Laboratory Results - last 24 hr 09/23/20 09/24/20 09/24/20 19:34 05:20 05:20 WBC 15.2 H RBC 3.34 L Hgb 10.2 L Hct 32.0 L MCV 95.8 MCH 30.5 MCHC 31.9 RDW 22.2 H Plt Count 183 MPV 13.0 H Immature Gran % (Auto) 2.3 H Neut % (Auto) 84.9 H Lymph % (Auto) 5.4 L [place] % (Auto) 7.3 Eos % (Auto) 0.0 Baso % (Auto) 0.1 Lymph # (Auto) 0.8 L [place] # (Auto) 1.1 Eos # (Auto) 0.0 Baso # (Auto) 0.0 Abs Immat Gran (auto) 0.35 H Absolute Neuts (auto) 12.9 H Absolute Nucleated RBC 0.000 Nucleated RBC % (auto) 0.0 O2 Saturation TNP ABG pH at Pt Temp 7.40 ABG pH (Temp Correct) 7.41 ABG pCO2 at Pt Temp 54 H ABG pCO2 (Temp Corrct 52 H ABG pO2 at Pt Temp 76 L ABG pO2 (Temp Correct 72 L ABG HCO3 33 H ABG Base Excess (Actual) 7.7 VBG pH VBG pCO2 VBG pO2 VBG HCO3 VBG O2 Saturation VBG Base Excess Sodium 145 Potassium 4.9 Chloride 112 H Carbon Dioxide 29 Anion Gap 9 L BUN 38 H Creatinine 0.50 Estim Creat Clear Calc 189.7 Estimated GFR > 60 Random Glucose 158 H Calcium 8.4 Total Bilirubin 1.1 H AST 58 H ALT 67 H Alkaline Phosphatase 142 H Total Protein 5.4 L Albumin 2.6 L 09/24/20 05:21 WBC RBC Hgb Hct MCV MCH MCHC RDW Plt Count MPV Immature Gran % (Auto) Neut % (Auto) Lymph % (Auto) [place] % (Auto) Eos % (Auto) Baso % (Auto) Lymph # (Auto) [place] # (Auto) Eos # (Auto) Baso # (Auto) Abs Immat Gran (auto) Absolute Neuts (auto) Absolute Nucleated RBC Nucleated RBC % (auto) O2 Saturation ABG pH at Pt Temp ABG pH (Temp Correct) ABG pCO2 at Pt Temp ABG pCO2 (Temp Corrct ABG pO2 at Pt Temp ABG pO2 (Temp Correct ABG HCO3 ABG Base Excess (Actual) VBG pH 7.39 VBG pCO2 53 VBG pO2 66 VBG HCO3 33 H VBG O2 Saturation 92.0 VBG Base Excess 7.3 Sodium Potassium Chloride Carbon Dioxide Anion Gap BUN Creatinine Estim Creat Clear Calc Estimated GFR Random Glucose Calcium Total Bilirubin AST ALT Alkaline Phosphatase Total Protein Albumin Microbiology Microbiology Results: Microbiology 09/22/20 17:18 Sputum - Suctioned Gram Stain - Final 09/22/20 17:18 Sputum - Suctioned Sputum Culture - Preliminary Normal so far. 09/22/20 09:23 Urine [place] Urine Culture - Final Yadira albicans 09/22/20 09:30 Blood - Venous Blood Culture - Preliminary No growth after 24 hours. 09/22/20 09:30 Blood - Venous Blood Culture - Preliminary No growth after 24 hours. 09/17/20 12:45 Bronchial Alveo Lavage Fungal Identification - Preliminary Yadira albicans 09/15/20 03:34 Blood - Venous Blood Culture - Final No growth after 5 days. 09/15/20 03:37 Blood - Venous Blood Culture - Final No growth after 5 days. 09/17/20 12:45 Bronchial Alveo Lavage Gram Stain - Final 09/17/20 12:45 Bronchial Alveo Lavage - Final Staphylococcus epidermidis 09/02/20 12:30 Blood - Venous Blood Culture - Final No growth after 5 days. 09/02/20 12:10 Blood - Venous Blood Culture - Final No growth after 5 days. Critical Care Time Critical Care Time (minutes): 60
--- NOTE | 2020-09-24 10:12 | MHC.CLN ---
F/U PT WAS EXTUBATED THIS MORNING DIET TO REMAIN NPO AT THIS TIME IF DIET NEEDED; RECOMMEND 2000DM 2GM NA POSSIBLE APPLICATIONS SUPPORT SPECIALIST EVAL PER MD DURING ROUNDS WILL FOLLOW WITH TEAM
[2020-09-24] MEDS: acetaZOLAMIDE sodium 500 MG VIAL 250 MG IVPUSH (11:35)
[2020-09-24] MEDS: Furosemide 20 MG/2 ML VIAL IVPUSH ×2 (11:35→21:47)
--- NOTE | 2020-09-24 13:39 | PC.NURSE ---
plan to extubate pt extuabted at 0915 to high flow at 35% 60L pt tolerated well, thick clear secretions noted, pt orally suctioned, pt bathed, repositioned in bed., medicated per JUL, pt titrated down to 3L NC with capnography, pt talking, knows who he is and where he is but occasionally confused, asks for father, yells out in room, camera in place. Will cont to monitor
--- NOTE | 2020-09-24 14:41 | MHC.CM.PN ---
Pt was successfully extubated today - alert and oriented to self and place but not to time or situation. Will allow for mental status improvement before initiating a conversation about next level of care and HCP completion.
[2020-09-24] MEDS: Enoxaparin Sodium 40 MG/0.4 ML SYRINGE SUBCUT (19:23)
[2020-09-24] MEDS: methylPREDNISolone Sod Succ 40 MG/ML VIAL 30 MG IVPUSH (21:38)
[2020-09-25] VITALS (13 sets, daily range): BP systolic 124–172; BP diastolic 67–85; PULSE 59–74; RESP 11–18; TEMP 36.6–37.7; O2SAT 88–98
[2020-09-25 05:17] LABS: VBG Base Excess 8.1 mmol/L; VBG HCO3 32 mmol/L (22-26); VBG pCO2 45 mmHg; VBG pH 7.46 (7.32-7.43); VBG pO2 50 mmHg
[2020-09-25 05:40] LABS: MANUAL DIFF FLAG NO
[2020-09-25 05:43] LABS: Basophils Percent Auto 0.1 % (0-2); Hematocrit 32.8 % (42-52); Hemoglobin 10.5 g/dl (14.0-18.0); Imm Gran Abs Auto 0.28 X10*3/uL (0.00-0.03); Imm Gran Pct Auto 2.1 % (0.0-0.4); Lymphocytes Absolute Auto 1.5 X10*3/uL (1.2-4.9); Lymphocytes Percent Auto 10.8 % (20-40); Mean Corpuscular Hemoglobin 30.7 pg (27.0-33.0); Mean Corpuscular Volume 95.9 fL (80-98); Mean Platelet Volume 12.4 fL (9.4-12.4); Monocytes Absolute Auto 0.9 X10*3/uL (0.1-1.2); Monocytes Percent Auto 6.3 % (2-11); Neutrophils Percent Auto 80.7 % (45-73); Platelet Count 208 X10*3/uL (160-400); Red Blood Count 3.42 X10*6/uL (4.60-5.80); White Blood Count 13.7 X10*3/uL (4.8-10.8)
[2020-09-25 05:50] LABS: Venous Blood Gas Refer to POC result
[2020-09-25 06:12] LABS: Alanine Aminotransferase 62 U/L (0-40); Albumin Level 2.6 g/dL (3.5-5.0); Alkaline Phosphatase 129 U/L (39-117); Anion Gap 12 (12-20); Aspartate Amino Transferase 56 U/L (5-37); Bilirubin Total 1.3 mg/dL (0.0-1.0); Blood Urea Nitrogen 30 mg/dL (9-16); Calcium 8.5 mg/dL (8.4-10.2); Carbon Dioxide 28 mmol/L (22-29); Chloride 112 mmol/L (96-108); Creatinine Clr Calc Pharmacy 155.5; Estimated Glomerular Filt Rate > 60; Glucose Random 146 mg/dL (60-115); Magnesium 2.2 mg/dL (1.6-2.6); Phosphorus 3.2 mg/dL (2.7-4.5); Potassium 4.5 mmol/L (3.3-5.1); Sodium 147 mmol/L (135-145); Total Protein 5.4 g/dL (6.5-8.0)
[2020-09-25] MEDS: Miconazole 2 % Extra Thick Cr 56.7 Gm Tube 1 APPL TOPICAL (08:42)
[2020-09-25] MEDS: methylPREDNISolone Sod Succ 40 MG/ML VIAL 30 MG IVPUSH ×2 (08:42→21:17)
[2020-09-25] MEDS: Sildenafil Citrate 20 MG TABLET PO ×3 (08:42→21:17)
[2020-09-25] MEDS: Furosemide 20 MG TABLET PO (09:52)
--- NOTE | 2020-09-25 09:52 | PM.CCPN ---
Subjective Subjective Date of Service: 09/25/20 Interval History: Mr. Jimenez was transferred to the ICU on September 16 bec of acute respiratory failure. 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 Mirtazapine 7.5 mg qhs. 2. Ativan 0.5 mg q8 hr prn. 3. Iron. 4. Suboxone 1 pill daily. 5. Lasix 40 mg daily. 6. Gabapentin 400 mg tid. 7. Hydroxyzine 25 mg qhs prn. 8. Omeprazole 40 mg daily. 9. Seroquel 50 mg daily prn. 10. Spironolactone 50 mg daily. 11. Tizanidine 4 mg q8h. The patient is homeless, lives in a custodial. HISTORY OF PRESENT ILLNESS: He presented ambulatory to the ED on September 02 c/o cough, fatigue, fevers, shortness of breath, and increased LE edema x 5 days. Reportedly had been using bags of heroin for the prior 3 weeks. In the ED, SpO2 was 56% on room air, 90?s on 50% venti mask. He had bilat pitting edema. CXR showed diffuse bilat infiltrates, infectious vs inflamm vs pulmon edema. CT angiogram showed diffuse bilateral ground-glass infiltrates, with peripheral sparing. There were multiple compression fractures of the thoracic and lumbar vertebrae. The inferior vena cava was prominent. There was portal hypertension with varices. By my reading, the RV:LV ratio was increased to about 1.0, with at least top-normal RV size, and straightening if not bowing of the left heart border. There was no pulmonary embolism. BNP was 1380, BUN/creat was 38/0.9 (baseline about 0.7) and trop was 58 x both determinations. WBC was 13, lactate was 2.5. COVID negative. The patient was admitted to Medicine and treated with antibiotics for possible pneumonia, and diuretics for heart failure. Echo done on September 03 showed normal LV systolic function with no regional wall motion abnormalities, ejection fraction 55-60%, with mildly increased LV wall thickness. There was grade 1 diastolic dysfunction. RV cavity size was mildly increased with dilated IVC, and RVSP estimate 45 mm. D-dimer on September 04 was >52,000 (the upper limit of the analyzer). Repeat COVID on 09/04 was negative. A repeat noncontrast chest CT on September 04 showed slightly worse infiltrates, which the radiologist thought was most c/w pulmon edema. PCT was 0.15. The patient was reportedly improving with the above treatment. But oxygenation worsened on September 13. Repeat chest x-ray showed marked worsening of the diffuse bilateral airspace and interstitial infiltrates. He completed 5 days of cefepime and doxycycline, and was then put on Zosyn. His oxygenation deteriorated further. The patient was thought to have gipny-tj-fotdxfd diastolic heart failure, exacerbated by hypoalbuminemia and 3rd spacing. Interstitial lung disease secondary to substance abuse was also in the differential. He was given albumin and diuresed. On September 15, the patient required CPAP and was transferred to the ICU. Chest x-ray showed progressing bilateral infiltrates. Repeat COVID test was negative. The patient was started on empiric Solu-Medrol for possible heroin-associated interstitial lung disease, and Bactrim for possible PCP. DVT study was negative. He required tracheal intubation the next day. BUN/creat ratio gene to a peak of 61/0.8 as the patient was diuresed. The patient underwent diagnostic bronchoscopy/BAL on 09/17. Repeat CT September 19 showed worse diffuse bilateral interstitial and alveolar infiltrates, altho his FiO2 had improved to 40%. He was started on a 3-day pulse of solumedrol, which completed on 09/22. Pneumocystis PCR from the BAL came back negative, and Bactrim was discontinued. Of note, on 09/18, the patient developed bradycardia that seemed 2? propofol, so the propofol wad d/c?d and he was put on prn Ativan. He had been continued on high dose fentanyl infusion. The patient had been on stable FiO2 40%/+10 since 09/19. On 09/23, his FiO2 was reduced to 35%. The fentanyl infusion was discontinued after the patient was switched to PSV and his resp rate was only 5-6, with tidal vols around the 1L . He stayed on PSV overnite and was then extubated yesterday morning without incident and has been on NC oxygen since noon yesterday. This morning his mental status is much improved and his voice is much stronger. He?s lustily calling out for the doctor. Wants to go home. He probably had some degree of ICU myopathy, but upper and lower extremity strength are now probably at least 4 or 4+/5. HR 71, BP 146/70. RR 12-16, Sat is low 90?s on 2L NC, 88% on room air. PvCO2 45 this morning, BE +8. He?s been afebrile his entire hospital stay. No JVD at 40?. Normal expiratory phase. The abdomen is benign and he passed a swallow eval. He has minimal anasarca. LABORATORY DATA: Below. Notably, WBC is down slightly. Sodium up to 147. BUN/creat down to 30/0.6. MICROBIOLOGY: Urinalysis, sputum, blood cultures from 09/22 neg so far. IMAGING: Last CXR 09/21 shows severe interstitial dz. No change from 09/18. Notably, chest CT in 2019 showed no acute lung dz, and the lung cuts from an abdominal CT on 08/15/2020 also showed clear lung yen. ECHOCARDIOGRAM done 09/21 by the [facility], interpreted by me: LV cavity volume normal; mild LVH; normal LV systolic function with ejection fraction 60+ %. RV slightly enlarged. No tricuspid Doppler jet. IVC is small, measured 1.3 cm. IMPRESSION: 1. Underlying chronic lung disease and cirrhosis, by history. 2. Diffuse acute bilateral pulmonary infiltrates of undetermined etiology. Pneumocystis PCR came back negative; Bactrim was d/c?d. The patient was also treated with pulse steroids for possible heroin-associated ILD. Completed his 3-day course on 09/22, with no rapid dramatic effect, but he?s clearly improved, both oxygenation and ventilation. His WOB is entirely normal, which suggests near normal lung compliance. All that suggests a steroid benefit. We don?t necessarily need further radiographic proof. Discussed with Dr. Mcgovern. The plan will be to continue Prednisone 60 mg daily (or the equivalent) for 3 months. Have him currently on Solu-Medrol 30 mg bid. We?ll switch to Prednisone tomorrow morning. (Had discussed a lung biopsy with Dr. Jacinto earlier this week. He wouldn?t consider it. In his opinion it would likely lead to the of the patient.) 3. VIKRAM. Still has significant edema. His renal ratio is high, likely bec of right heart failure. I?ve put him on Lasix 20 mg po daily. His Med Rec indicates that he was previously on Lasix 40 mg daily. 4. Pulmonary HTN w RHF. Continue the sildenafil. Suggest further discussion about this with pulmonary consult. 5. Neuropsych. His Med Rec indicates that he was previously on Suboxone, Seroquel 50 mg daily prn agitation, lorazepam 0.5 mg Q8 hr prn anxiety, gabapentin 400 mg tid, and fluoxetine 20 mg daily. I?m going to restart the fluoxetine and write him for the Ativan. Given that he?s been here for three weeks without the suboxone, he?s effectively detoxed. Might benefit from psych eval. 6. Underlying DM. POCs are in range, without treatment. 7. Metabolic alkalosis. 2? diuresis. Continue Diamox. Stable for transfer to a regular room. I will sign out to the hospitalists. Time: Physical Exam Vital Signs: Vital Signs: Last Vital Signs Temp 98.4 F 09/25/20 08:00 Pulse 73 09/25/20 09:00 Resp 17 09/25/20 09:00 BP 146/70 H 09/25/20 09:00 Pulse Ox 88 L 09/25/20 09:00 Oxygen Flow Rate 15 09/15/20 02:40 Body Mass Index 29.8 Objective Data Labs CBC & Chem 7: 09/25/20 05:11 09/25/20 05:11 Labs: Laboratory Results - last 24 hr 09/25/20 09/25/20 09/25/20 05:10 05:11 05:11 WBC 13.7 H RBC 3.42 L Hgb 10.5 L Hct 32.8 L MCV 95.9 MCH 30.7 MCHC 32.0 RDW 22.0 H Plt Count 208 MPV 12.4 Immature Gran % (Auto) 2.1 H Neut % (Auto) 80.7 H Lymph % (Auto) 10.8 L [place] % (Auto) 6.3 Eos % (Auto) 0.0 Baso % (Auto) 0.1 Lymph # (Auto) 1.5 [place] # (Auto) 0.9 Eos # (Auto) 0.0 Baso # (Auto) 0.0 Abs Immat Gran (auto) 0.28 H Absolute Neuts (auto) 11.0 H Absolute Nucleated RBC 0.000 Nucleated RBC % (auto) 0.0 VBG pH 7.46 H VBG pCO2 45 VBG pO2 50 VBG HCO3 32 H VBG O2 Saturation 83.0 VBG Base Excess 8.1 Sodium 147 H Potassium 4.5 Chloride 112 H Carbon Dioxide 28 Anion Gap 12 BUN 30 H Creatinine 0.61 Estim Creat Clear Calc 155.5 Estimated GFR > 60 Random Glucose 146 H Calcium 8.5 Phosphorus 3.2 Magnesium 2.2 Total Bilirubin 1.3 H AST 56 H ALT 62 H Alkaline Phosphatase 129 H Total Protein 5.4 L Albumin 2.6 L Microbiology Microbiology Results: Microbiology 09/22/20 17:18 Sputum - Suctioned Gram Stain - Final 09/22/20 17:18 Sputum - Suctioned Sputum Culture - Final 09/22/20 09:30 Blood - Venous Blood Culture - Preliminary No growth after 48 hours. 09/22/20 09:30 Blood - Venous Blood Culture - Preliminary No growth after 48 hours. 09/22/20 09:23 Urine [place] Urine Culture - Final Yadira albicans 09/17/20 12:45 Bronchial Alveo Lavage Fungal Identification - Preliminary Yadira albicans 09/15/20 03:34 Blood - Venous Blood Culture - Final No growth after 5 days. 09/15/20 03:37 Blood - Venous Blood Culture - Final No growth after 5 days. 09/17/20 12:45 Bronchial Alveo Lavage Gram Stain - Final 09/17/20 12:45 Bronchial Alveo Lavage - Final Staphylococcus epidermidis 09/02/20 12:30 Blood - Venous Blood Culture - Final No growth after 5 days. 09/02/20 12:10 Blood - Venous Blood Culture - Final No growth after 5 days.
[2020-09-25] MEDS: FLUoxetine HCl 20 MG CAPSULE PO (10:10)
[2020-09-25] MEDS: LORazepam 0.5 MG TABLET PO ×2 (10:10→23:38)
--- NOTE | 2020-09-25 11:11 | MHC.CARE ---
0935: Met with pt in ICU at request of the Nurse Career Development Engineer Matty Mcguire. Pt was recently extubated and was being problematic with staff. Pt was not so problematic that it required a Security intervention. Counseled pt and diffused his behaviors that were problematic including the balling of fists while an IV was being placed, being non compliant with staff instructions, arguing about his desire to leave among other nuisance behaviors. Pt appeared somewhat confused and expressed his desire to go to [facility]. Pt did eventually calm and grew compliant. Pt will be transported to the third floor. I advised pt that I would accompany him to the third floor when they were ready to take him.
--- NOTE | 2020-09-25 11:14 | MHC.CARE ---
1033: Accompanied pt to the third floor as I agreed to per our conversation this morning.
[2020-09-25] MEDS: acetaZOLAMIDE 250 MG TABLET PO (21:17)
[2020-09-25] MEDS: Enoxaparin Sodium 40 MG/0.4 ML SYRINGE SUBCUT (21:18)
[2020-09-26] VITALS (7 sets, daily range): BP systolic 119–153; BP diastolic 63–81; PULSE 59–69; RESP 12–19; TEMP 35.6–37.2; O2SAT 92–96
--- NOTE | 2020-09-26 09:35 | P.PNIM_ITS ---
Subjective Subjective Date of Service: 09/26/20 Interval History: Seen in f/u for acute hypoxic respiratory failure that required ICU care with mechanical ventilation with working diagnosis of heroin induced acute lung injury and has been treated with steroid. He was intubated on 09/16/20 and extubated 09/24/20. Review of Systems Gen: no fever Resp: no sob, no cough CV: no chest, no CALHOUN, no leg edema GI: No n/v, no abd pain Neuro: No confusion Physical Exam Vital Signs: Vital Signs: Last Vital Signs Temp 98.8 F 09/26/20 08:00 Pulse 69 09/26/20 08:00 Resp 19 09/26/20 08:00 BP 153/72 H 09/26/20 08:00 Pulse Ox 94 09/26/20 08:43 Oxygen Flow Rate 15 09/15/20 02:40 Body Mass Index 29.8 Const: Other: General: AO X 3, no acute distress Resp: CTA bilateral CVS: S1,S2,RRR GI: +BS, NT, no distention Skin: No rash Neuro: motor grossly intact Psych: appropriate affect Objective Data Current Medications Generic Name Dose Route Start Last Admin Trade Name Freq PRN Reason Stop Dose Admin Acetazolamide 250 mg 09/25/20 21:00 09/25/20 21:17 Acetazolamide 250 Mg Tablet PO 250 mg BID ELISEO Administration Enoxaparin Sodium 40 mg 09/02/20 20:00 09/25/20 21:18 Enoxaparin Sodium 40 Mg/0.4 Ml Syringe SUBCUT 40 mg Q24H ELISEO Administration Fluoxetine HCl 20 mg 09/25/20 09:55 09/25/20 10:10 Fluoxetine Hcl 20 Mg Capsule PO 20 mg DAILY ELISEO Administration Furosemide 20 mg 09/25/20 09:45 09/25/20 09:52 Furosemide 20 Mg Tablet PO 20 mg DAILY ELISEO Administration Protocol Lorazepam 0.5 mg 09/25/20 09:51 09/25/20 23:38 Lorazepam 0.5 Mg Tablet PO 0.5 mg Q8H PRN Administration Anxiety Miconazole Nitrate 1 appl 09/16/20 09:00 09/25/20 22:10 Miconazole 2 % Extra Thick Cr 56.7 Gm Tube TOPICAL Not Given BID ELISEO Protocol Ondansetron HCl 4 mg 09/02/20 16:54 09/10/20 10:57 Ondansetron Hcl 4 Mg/2 Ml Vial IVPUSH 4 mg Q8H PRN Administration Nausea Pharmacy Consult 1 each 09/02/20 16:54 Consult Rx Perform Med Rec MISCELLANE ONCE PRN Consult order Prednisone 60 mg 09/26/20 09:00 Prednisone 20 Mg Tablet PO DAILY ELISEO Sildenafil Citrate 20 mg 09/19/20 09:00 09/25/20 21:17 Sildenafil Citrate 20 Mg Tablet PO 20 mg TID ELISEO Administration Labs CBC & Chem 7: 09/25/20 05:11 09/25/20 05:11 Microbiology Microbiology Results: Microbiology 09/22/20 17:18 Sputum - Suctioned Gram Stain - Final 09/22/20 17:18 Sputum - Suctioned Sputum Culture - Final 09/22/20 09:30 Blood - Venous Blood Culture - Preliminary No growth after 48 hours. 09/22/20 09:30 Blood - Venous Blood Culture - Preliminary No growth after 48 hours. 09/22/20 09:23 Urine [place] Urine Culture - Final Yadira albicans 09/17/20 12:45 Bronchial Alveo Lavage Fungal Identification - Preliminary Yadira albicans 09/15/20 03:34 Blood - Venous Blood Culture - Final No growth after 5 days. 09/15/20 03:37 Blood - Venous Blood Culture - Final No growth after 5 days. 09/17/20 12:45 Bronchial Alveo Lavage Gram Stain - Final 09/17/20 12:45 Bronchial Alveo Lavage - Final Staphylococcus epidermidis 09/02/20 12:30 Blood - Venous Blood Culture - Final No growth after 5 days. 09/02/20 12:10 Blood - Venous Blood Culture - Final No growth after 5 days. 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 He was treated fof heart faiure and pneumonia, covid ruled. He was progresively hypoxic and on 09/15/20 he became more hypoxic on CPAP and transfered to ICU and was intubated the next day 09/16/20 and treted for suspected heroin induced acute lung injury with steroid. He was extubated on 09/24/20 andis doing better. Acute respiratory failure with hypoxia d/t heroin induced lung injury-- continue Prednisone at 60 mg daily, wean off O2. ? Use of Sildenafil Pneumonia--has complicated course of antibiotics Heart failure, suspected acute on chronic, seem compensated at this time. To continue Lasix. Echo 55 to 60. Opioid use desorder--at this point he has detox and opioid should be avoided if at all possible. Depression--Prozac Hypernatremia--DC Diamox, encourage free water Weakness/deconditioning. PT eval
[2020-09-26] MEDS: Furosemide 20 MG TABLET PO (09:37)
[2020-09-26] MEDS: Sildenafil Citrate 20 MG TABLET PO ×3 (09:37→20:52)
[2020-09-26] MEDS: FLUoxetine HCl 20 MG CAPSULE PO (09:37)
[2020-09-26] MEDS: acetaZOLAMIDE 250 MG TABLET PO (09:37)
[2020-09-26] MEDS: predniSONE 20 MG TABLET 60 MG PO (09:37)
[2020-09-26] MEDS: Miconazole 2 % Extra Thick Cr 56.7 Gm Tube 1 APPL TOPICAL ×2 (09:42→20:52)
[2020-09-26] MEDS: Enoxaparin Sodium 40 MG/0.4 ML SYRINGE SUBCUT (20:52)
[2020-09-27] MEDS: LORazepam 0.5 MG TABLET PO ×2 (03:19→20:32)
[2020-09-27 03:38] VITALS: BP 136/76; PULSE 65; RESP 18; TEMP 36.9; O2SAT 92
[2020-09-27 07:20] VITALS: BP 129/68; PULSE 67; RESP 18; TEMP 37.4; O2SAT 93
[2020-09-27] MEDS: FLUoxetine HCl 20 MG CAPSULE PO (08:00)
[2020-09-27] MEDS: Sildenafil Citrate 20 MG TABLET PO (08:00)
[2020-09-27] MEDS: Miconazole 2 % Extra Thick Cr 56.7 Gm Tube 1 APPL TOPICAL (08:01)
[2020-09-27] MEDS: Furosemide 20 MG TABLET PO (08:01)
[2020-09-27] MEDS: predniSONE 20 MG TABLET 60 MG PO (08:01)
[2020-09-27 10:21] VITALS: BP 129/68; PULSE 67; O2SAT 93
[2020-09-27 10:42] VITALS: O2SAT 89
--- NOTE | 2020-09-27 11:36 | P.PNIM_ITS ---
Subjective Subjective Date of Service: 09/27/20 Interval History: Seen in f/u for acute hypoxic respiratory failure that required ICU care with mechanical ventilation with working diagnosis of heroin induced acute lung injury and has been treated with steroid. He was intubated on 09/16/20 and extubated 09/24/20. He is making progress but not ready to go home as he wish, he is very weak, clumsy and PT is recommending STR, Review of Systems Gen: no fever Resp: no sob, no cough CV: no chest, no CALHOUN, no leg edema GI: No n/v, no abd pain Neuro: No confusion, weak Physical Exam Vital Signs: Vital Signs: Last Vital Signs Temp 99.4 F 09/27/20 07:20 Pulse 67 09/27/20 10:21 Resp 18 09/27/20 07:20 BP 129/68 09/27/20 10:21 Pulse Ox 89 L 09/27/20 10:42 Oxygen Flow Rate 15 09/15/20 02:40 Body Mass Index 29.8 Const: Other: General: AO X 3, no acute distress Resp: CTA bilateral CVS: S1,S2,RRR GI: +BS, NT, no distention Skin: No rash Neuro: motor grossly intact Psych: appropriate affect Orientation/consciousness: patient oriented x3 Neuro: General: patient oriented x3 Objective Data Current Medications Generic Name Dose Route Start Last Admin Trade Name Freq PRN Reason Stop Dose Admin Enoxaparin Sodium 40 mg 09/02/20 20:00 09/26/20 20:52 Enoxaparin Sodium 40 Mg/0.4 Ml Syringe SUBCUT 40 mg Q24H ELISEO Administration Fluoxetine HCl 20 mg 09/25/20 09:55 09/27/20 08:00 Fluoxetine Hcl 20 Mg Capsule PO 20 mg DAILY ELISEO Administration Furosemide 20 mg 09/25/20 09:45 09/27/20 08:01 Furosemide 20 Mg Tablet PO 20 mg DAILY ELISEO Administration Protocol Lorazepam 0.5 mg 09/25/20 09:51 09/27/20 03:19 Lorazepam 0.5 Mg Tablet PO 0.5 mg Q8H PRN Administration Anxiety Miconazole Nitrate 1 appl 09/16/20 09:00 09/27/20 08:01 Miconazole 2 % Extra Thick Cr 56.7 Gm Tube TOPICAL 1 appl BID ELISEO Administration Protocol Ondansetron HCl 4 mg 09/02/20 16:54 09/10/20 10:57 Ondansetron Hcl 4 Mg/2 Ml Vial IVPUSH 4 mg Q8H PRN Administration Nausea Pharmacy Consult 1 each 09/02/20 16:54 Consult Rx Perform Med Rec MISCELLANE ONCE PRN Consult order Prednisone 60 mg 09/26/20 09:00 09/27/20 08:01 Prednisone 20 Mg Tablet PO 60 mg DAILY ELISEO Administration Sildenafil Citrate 20 mg 09/19/20 09:00 09/27/20 08:00 Sildenafil Citrate 20 Mg Tablet PO 20 mg TID ELISEO Administration Labs CBC & Chem 7: 09/25/20 05:11 09/25/20 05:11 Microbiology Microbiology Results: Microbiology 09/22/20 09:30 Blood - Venous Blood Culture - Final No growth after 5 days. 09/22/20 09:30 Blood - Venous Blood Culture - Final No growth after 5 days. 09/17/20 12:45 Bronchial Alveo Lavage Fungal Identification - Preliminary Yadira albicans 09/22/20 17:18 Sputum - Suctioned Gram Stain - Final 09/22/20 17:18 Sputum - Suctioned Sputum Culture - Final 09/22/20 09:23 Urine [place] Urine Culture - Final Yadira albicans 09/15/20 03:34 Blood - Venous Blood Culture - Final No growth after 5 days. 09/15/20 03:37 Blood - Venous Blood Culture - Final No growth after 5 days. 09/17/20 12:45 Bronchial Alveo Lavage Gram Stain - Final 09/17/20 12:45 Bronchial Alveo Lavage - Final Staphylococcus epidermidis 09/02/20 12:30 Blood - Venous Blood Culture - Final No growth after 5 days. 09/02/20 12:10 Blood - Venous Blood Culture - Final No growth after 5 days. 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 He was treated fof heart faiure and pneumonia, covid ruled. He was progresively hypoxic and on 09/15/20 he became more hypoxic on CPAP and transfered to ICU and was intubated the next day 09/16/20 and treted for suspected heroin induced acute lung injury with steroid. He was extubated on 09/24/20 andis doing better. Acute respiratory failure with hypoxia d/t heroin induced lung injury-- continue Prednisone at 60 mg daily, wean off O2. ? Use of Sildenafil Pneumonia--has complicated course of antibiotics Heart failure, suspected acute on chronic, seem compensated at this time. To continue Lasix. Echo 55 to 60. Opioid use desorder--at this point he has detox and opioid should be avoided if at all possible. Depression--Prozac Hypernatremia--recheck Weakness/deconditioning. PT recommend STR which I concur with
--- NOTE | 2020-09-27 13:52 | MHC.CM.PN ---
THIS ENTRY LEVEL DRAFTER MET WITH PATIENT WHO IS REFUSING SHORT TERM REHAB. PATIENT IS ALSO REFUSING TO ASSIGN A HCP AGENT. HE REPORTS THAT HE IS LEAVING TODAY AND GOING TO STAY WITH HIS SON, NAHUM. WHEN ASKED TO SPEAK WITH NAHUM TO CONFIRM THE PLAN, PATIENT SAYS THAT HE DOES NOT HAVE HIS SON'S NUMBER. PATIENT THEN STATES THAT HIS SON DOES NOT HAVE A PHONE. PHONE NUMBER FOUND FOR PATIENT'S BROTHER, ALEX ([phone]) PATIENT AGREES THAT THIS ENTRY LEVEL DRAFTER CAN CALL ALEX. CALL RESULTS IN NUMBER BRING INCORRECT AND BELONGING TO A MAN NAMED CURTIS. PHONE NUMBER FOUND FOR SON, NAHUM ([phone]). MULTIPLE CALLS TO THIS NUMBER RESULTS IN CONSTANT BUSY SIGNAL ACCORDING TO PREVIOUS SUCCESS COACH NOTES, CONTACT WITH SON IS SPOTTY AND INCONSISTENT. HOSPITALIST MADE AWARE. EVALUATION FOR COMPETENCY TO BE ORDERED. [facility] AND [facility] MADE AWARE.
--- NOTE | 2020-09-27 16:54 | PC.NURSE ---
Patient agitated, stating i am leaving today no matter what to go to my son's house . Patient continuously yelling out, and ringing call coronado, asking to leave and to call a cab. crop grain or livestock farm manager, inpatient nursing aide,and this RN at bedside to educate patient on discharge planning and barriers of a safe discharge. Refusing all meals and resistive to care at times, refused vital signs at 1500. Patient dangling at bedside, refusing to get back into bed. Bed alarm on and camera at bedside for safety. Psych consult pending for competency evaluation.
[2020-09-28 04:00] VITALS: BP 132/71; PULSE 68; RESP 20; TEMP 37.1; O2SAT 92
[2020-09-28 07:34] VITALS: BP 130/71; PULSE 69; RESP 18; TEMP 36.7; O2SAT 91
--- NOTE | 2020-09-28 09:58 | P.PNIM_ITS ---
Subjective Subjective Date of Service: 09/28/20 Interval History: Seen in f/u for acute hypoxic respiratory failure that required ICU care with mechanical ventilation with working diagnosis of heroin induced acute lung injury and has been treated with steroid. He was intubated on 09/16/20 and extubated 09/24/20. He is making progress but not ready to go home as he wish, he is very weak, clumsy and PT is recommending STR,. He continues to be making threats that he wants to go home to his son who cannot be reached with number provider, I tried to get to up and walk and was not able to sit up on on his own Review of Systems Gen: no fever Resp: no sob, no cough CV: no chest, no CALHOUN, no leg edema GI: No n/v, no abd pain Neuro: No confusion, weak Physical Exam Vital Signs: Vital Signs: Last Vital Signs Temp 98.1 F 09/28/20 07:34 Pulse 69 09/28/20 07:34 Resp 18 09/28/20 07:34 BP 130/71 09/28/20 07:34 Pulse Ox 91 L 09/28/20 07:34 Oxygen Flow Rate 15 09/15/20 02:40 Body Mass Index 29.8 Const: Other: General: AO X 3, no acute distress Resp: CTA bilateral CVS: S1,S2,RRR GI: +BS, NT, no distention Skin: No rash Neuro: motor grossly intact, no focal defific but generally very weak Psych: appropriate affect Objective Data Current Medications Generic Name Dose Route Start Last Admin Trade Name Freq PRN Reason Stop Dose Admin Enoxaparin Sodium 40 mg 09/02/20 20:00 09/27/20 19:55 Enoxaparin Sodium 40 Mg/0.4 Ml Syringe SUBCUT Not Given Q24H ELISEO Fluoxetine HCl 20 mg 09/25/20 09:55 09/28/20 08:17 Fluoxetine Hcl 20 Mg Capsule PO Not Given DAILY ELISEO Furosemide 20 mg 09/25/20 09:45 09/28/20 08:16 Furosemide 20 Mg Tablet PO Not Given DAILY ELISEO Protocol Lorazepam 0.5 mg 09/25/20 09:51 09/27/20 20:32 Lorazepam 0.5 Mg Tablet PO 0.5 mg Q8H PRN Administration Anxiety Miconazole Nitrate 1 appl 09/16/20 09:00 09/27/20 19:55 Miconazole 2 % Extra Thick Cr 56.7 Gm Tube TOPICAL Not Given BID [facility] Protocol Ondansetron HCl 4 mg 09/02/20 16:54 09/10/20 10:57 Ondansetron Hcl 4 Mg/2 Ml Vial IVPUSH 4 mg Q8H PRN Administration Nausea Pharmacy Consult 1 each 09/02/20 16:54 Consult Rx Perform Med Rec MISCELLANE ONCE PRN Consult order Prednisone 60 mg 09/26/20 09:00 09/28/20 08:16 Prednisone 20 Mg Tablet PO Not Given DAILY [facility] Sildenafil Citrate 20 mg 09/19/20 09:00 09/28/20 08:16 Sildenafil Citrate 20 Mg Tablet PO Not Given TID [facility] Labs CBC & Chem 7: 09/25/20 05:11 09/25/20 05:11 Microbiology Microbiology Results: Microbiology 09/22/20 09:30 Blood - Venous Blood Culture - Final No growth after 5 days. 09/22/20 09:30 Blood - Venous Blood Culture - Final No growth after 5 days. 09/17/20 12:45 Bronchial Alveo Lavage Fungal Identification - Preliminary Yadira albicans 09/22/20 17:18 Sputum - Suctioned Gram Stain - Final 09/22/20 17:18 Sputum - Suctioned Sputum Culture - Final 09/22/20 09:23 Urine [place] Urine Culture - Final Yadira albicans 09/15/20 03:34 Blood - Venous Blood Culture - Final No growth after 5 days. 09/15/20 03:37 Blood - Venous Blood Culture - Final No growth after 5 days. 09/17/20 12:45 Bronchial Alveo Lavage Gram Stain - Final 09/17/20 12:45 Bronchial Alveo Lavage - Final Staphylococcus epidermidis 09/02/20 12:30 Blood - Venous Blood Culture - Final No growth after 5 days. 09/02/20 12:10 Blood - Venous Blood Culture - Final No growth after 5 days. Assessment and Plan (1) Acute respiratory failure with hypoxia: Status: Acute (2) Acute on chronic right heart failure: Status: Acute (3) Pneumonia: Status: Acute (4) Pulmonary hypertension: Status: Acute (5) Non-rheumatic tricuspid valve insufficiency: Status: Acute (6) Substance abuse: Status: Acute Assessment and Plan: 60-year-old gentleman with known history of cirrhosis related to hepatitis C, history of peripheral neuropathy and diet-controlled diabetes, who presented to [facility] due to worsening bilateral lower extremity edema,shortness of breath and chest pain with exertion, relieved with rest on 09/02/20. He was treated fof heart faiure and pneumonia, covid ruled. He was progresively hypoxic and on 09/15/20 he became more hypoxic on CPAP and transfered to ICU and was intubated the next day 09/16/20 and treted for suspected heroin induced acute lung injury with steroid. He was extubated on 09/24/20 andis doing better. Acute respiratory failure with hypoxia d/t heroin induced lung injury-- continue Prednisone at 60 mg daily, wean off O2. ? Use of Sildenafil Pneumonia--has completed course of antibiotics Heart failure, suspected acute on chronic, seem compensated at this time. To continue Lasix. Echo 55 to 60. Opioid use desorder--at this point he has detox and opioid should be avoided if at all possible. Depression--Prozac Hypernatremia--recheck labs today Weakness/deconditioning. PT recommend STR which I concur with, he is unsafe to go get up and walk on his own and further more doesn't have a place to go to, will invoke silverio to assess for compentency
--- NOTE | 2020-09-28 13:34 | MHC.CM.PN ---
PER CONVERSATION WITH THE [facility] [employer] [facility] [employer]IG[facility] [employer] ([phone]), PATIENT DOES NOT QUALIFY FOR HOUSING OR HEALTHCARE BENEFITS UNDER THE [employer]. CALL WAS MADE TO THE [facility] WITH PERMISSION FROM PATIENT.
--- NOTE | 2020-09-28 14:00 | MHC.CM.PN ---
PATIENT AGREES TO ASSIGN HIS SON, NAHUM, HIS HCP AGENT. CASE MANAGEMENT CURRENTLY WAITING FOR NAHUM'S CORRECT CONTACT INFO TO ADD TO DOCUMENT. ORIGINAL WILL BE UPLOADED INTO [employer] AND THEN GIVEN TO PATIENT. COPY WILL BE PLACED IN PATIENT'S FILE. [facility] UPDATED.
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
--- NOTE | 2020-09-28 14:41 | MHC.CM.PN ---
MULTIPLE CALLS MADE TO [facility] ON-FILE CONTACT NUMBER [phone] WITH NO ANSWER OR ABILITY TO LEAVE A MESSAGE. LINE APPEARS TO BE BUSY OR UNABLE TO ACCEPT CALLS. [facility] PHONE NUMBER FOUND ([phone]); HOWEVER, NO ANSWER OR VOICEMAIL [employer]. PATIENT WILL TRY TO REMEMBER SON'S PHONE NUMBER AND REACH OUT TO CASE MANAGEMENT IF HE IS SUCCESSFUL.
[2020-09-28 15:16] VITALS: BP 137/79; PULSE 74; RESP 17; TEMP 36.3; O2SAT 94
--- NOTE | 2020-09-28 15:56 | MHC.CM.PN ---
SON [facility] (PAGE) [phone] BROTHER ALEX [phone] [facility] UPDATED
--- NOTE | 2020-09-28 16:17 | MHC.CM.PN ---
[facility] IS GOING FOR INSURANCE AUTHORIZATION. HCP CONTACTS UPLOADED INTO [employer]. PATIENT ASKS THAT BROTHER ALEX ([phone]) BE ADDED TO HCP. TASK COMPLETED
--- NOTE | 2020-09-28 17:56 | PC.NURSE ---
Patient stating he wants to go home, he is out of here tonight no matter what. Demanding personal belongings from the closet, wallet with money inside and sweatshirt given to patient. Resistive to care at times, refusing all medications and meals. Re educated continuously on safety and his inability to ambulate. Bed alarm in place, camera at bedside, rounder in place for safety. Continuously educated on the discharge planning, awaiting contact with patient's son.
[2020-09-28] MEDS: LORazepam 0.5 MG TABLET PO (20:38)
[2020-09-28 23:49] VITALS: BP 139/74; PULSE 73; RESP 16; TEMP 36.7; O2SAT 99
[2020-09-29 03:24] VITALS: BP 151/79; PULSE 68; RESP 18; TEMP 36.9; O2SAT 95
[2020-09-29 07:59] VITALS: BP 154/82; PULSE 70; RESP 16; TEMP 36.9; O2SAT 91
[2020-09-29 11:10] VITALS: BP 141/94; PULSE 76; RESP 79; TEMP 36.3; O2SAT 89
--- NOTE | 2020-09-29 12:54 | PC.NURSE ---
Patient agitated, restless, swearing, throwing things, continuously attempting to get oob, resistive to care. Patient stating i am getting out of here to wait for my son outside . This RN and WORK CAR OPERATOR at bedside continuously redirecting patient and attempting to put him back in bed. Security called to assist. Patient very deconditioned and unable to ambulate. High risk for falls. Camera at bedside and bed alarm in place.
--- NOTE | 2020-09-29 14:42 | MHC.CLN ---
F/U PO INTAKE FAIR; PT REFUSES 2 MEALS PER DAY CONSUMES 75-100% AT DINNER DIET RX: REGULAR-RECOMMEND 2000DM 2GM NA DIET R/T HX DM AND CHF WILL START GLUCERNA TO INCREASE KCALS R/T POOR PO FOLLOWING
[2020-09-29 15:15] VITALS: BP 159/89; PULSE 68; RESP 17; TEMP 36.6; O2SAT 93
--- NOTE | 2020-09-29 15:17 | MHC.CM.PN ---
pt is accepted at [facility] c support of his son / hcp - amarilis (ph: [phone]) to leave today at 5 pm. however, pt is refusing to go. we tried to have pt's son come in today to facilitate him getting on a ch van to go to [facility], however amarilis is on home o2 , does not have a car or ride to get here today. a second attempt was made c care team safety representative to compel patient to accept opportunity at [facility], this was unsuccessful. from here the plan is to have pt's son come into hospital tomorrow, possibly provide transportation for this via the [facility] courtesy van. once here, the son can help compel the patient to get in ch van and go to [facility]. a call and message was left c amarilis for this potential plan. md and rn are aware of these changes in dc plan. cm to cont. to follow.
--- NOTE | 2020-09-29 16:47 | P.PNIM_ITS ---
Subjective Subjective Date of Service: 09/29/20 Interval History: Seen in f/u for acute hypoxic respiratory failure that required ICU care with mechanical ventilation with working diagnosis of heroin induced acute lung injury and has been treated with steroid. He was intubated on 09/16/20 and extubated 09/24/20. He is making progress but not ready to go home as he wish, he is very weak, clumsy and PT is recommending STR. He continues to be resistant to going to rehab but finally agree but case management is gone Review of Systems Gen: no fever Resp: no sob, no cough CV: no chest, no CALHOUN, no leg edema GI: No n/v, no abd pain Neuro: No confusion, weak Physical Exam Vital Signs: Vital Signs: Last Vital Signs Temp 97.8 F 09/29/20 15:15 Pulse 68 09/29/20 15:15 Resp 17 09/29/20 15:15 BP 159/89 H 09/29/20 15:15 Pulse Ox 93 09/29/20 15:15 Oxygen Flow Rate 15 09/15/20 02:40 Body Mass Index 29.8 Const: Other: General: AO X 3, no acute distress Resp: CTA bilateral CVS: S1,S2,RRR GI: +BS, NT, no distention Skin: No rash Neuro: motor grossly intact, no focal defific but generally very weak Psych: appropriate affect Objective Data Current Medications Generic Name Dose Route Start Last Admin Trade Name Freq PRN Reason Stop Dose Admin Enoxaparin Sodium 40 mg 09/02/20 20:00 09/28/20 20:41 Enoxaparin Sodium 40 Mg/0.4 Ml Syringe SUBCUT Not Given Q24H ELISEO Fluoxetine HCl 20 mg 09/25/20 09:55 09/29/20 08:47 Fluoxetine Hcl 20 Mg Capsule PO Not Given DAILY ELISEO Furosemide 20 mg 09/25/20 09:45 09/29/20 08:47 Furosemide 20 Mg Tablet PO Not Given DAILY [facility] Protocol Lorazepam 0.5 mg 09/25/20 09:51 09/28/20 20:38 Lorazepam 0.5 Mg Tablet PO 0.5 mg Q8H PRN Administration Anxiety Miconazole Nitrate 1 appl 09/16/20 09:00 09/29/20 08:47 Miconazole 2 % Extra Thick Cr 56.7 Gm Tube TOPICAL Not Given BID [facility] Protocol Ondansetron HCl 4 mg 09/02/20 16:54 09/10/20 10:57 Ondansetron Hcl 4 Mg/2 Ml Vial IVPUSH 4 mg Q8H PRN Administration Nausea Pharmacy Consult 1 each 09/02/20 16:54 Consult Rx Perform Med Rec MISCELLANE ONCE PRN Consult order Prednisone 60 mg 09/26/20 09:00 09/29/20 08:47 Prednisone 20 Mg Tablet PO Not Given DAILY [facility] Sildenafil Citrate 20 mg 09/19/20 09:00 09/29/20 15:42 Sildenafil Citrate 20 Mg Tablet PO Not Given TID [facility] Labs CBC & Chem 7: 09/25/20 05:11 09/25/20 05:11 Microbiology Microbiology Results: Microbiology 09/17/20 12:45 Bronchial Alveo Lavage Direct Acid Fast Bacilli Smear - Final 09/22/20 09:30 Blood - Venous Blood Culture - Final No growth after 5 days. 09/22/20 09:30 Blood - Venous Blood Culture - Final No growth after 5 days. 09/17/20 12:45 Bronchial Alveo Lavage Fungal Identification - Preliminary Yadira albicans 09/22/20 17:18 Sputum - Suctioned Gram Stain - Final 09/22/20 17:18 Sputum - Suctioned Sputum Culture - Final 09/22/20 09:23 Urine [place] Urine Culture - Final Yadira albicans 09/15/20 03:34 Blood - Venous Blood Culture - Final No growth after 5 days. 09/15/20 03:37 Blood - Venous Blood Culture - Final No growth after 5 days. 09/17/20 12:45 Bronchial Alveo Lavage Gram Stain - Final 09/17/20 12:45 Bronchial Alveo Lavage - Final Staphylococcus epidermidis 09/02/20 12:30 Blood - Venous Blood Culture - Final No growth after 5 days. 09/02/20 12:10 Blood - Venous Blood Culture - Final No growth after 5 days. Assessment and Plan (1) Acute respiratory failure with hypoxia: Status: Acute (2) Acute on chronic right heart failure: Status: Acute (3) Pneumonia: Status: Acute (4) Pulmonary hypertension: Status: Acute (5) Non-rheumatic tricuspid valve insufficiency: Status: Acute (6) Substance abuse: Status: Acute Assessment and Plan: 60-year-old gentleman with known history of cirrhosis related to hepatitis C, history of peripheral neuropathy and diet-controlled diabetes, who presented to [facility] due to worsening bilateral lower extremity edema,shortness of breath and chest pain with exertion, relieved with rest on 09/02/20. He was treated fof heart faiure and pneumonia, covid ruled. He was progresively hypoxic and on 09/15/20 he became more hypoxic on CPAP and transfered to ICU and was intubated the next day 09/16/20 and treted for suspected heroin induced acute lung injury with steroid. He was extubated on 09/24/20 andis doing better. Acute respiratory failure with hypoxia d/t heroin induced lung injury-- decrease prednisone to 40 Pneumonia--has completed course of antibiotics Pulmonary HTN--there was mild pulmonary hypertension cited on echo from 09/03. Echocardiogram for 09/21 showed no pulmonary hypertension at this point I am not sure it is prudent to continue this medication on a but will check with Pulmonary Heart failure, suspected acute on chronic, seem compensated at this time. To continue Lasix. Echo 55 to 60. Opioid use desorder--at this point he has detox and opioid should be avoided if at all possible. Depression--Prozac Hypernatremia--recheck labs today Weakness/deconditioning. He is now saying he will go to short term rehab, will arrange for tomorrow
--- NOTE | 2020-09-29 19:20 | PC.NURSE ---
Patient yelling, agitated, threw himself off the bed onto the floor with sitter, bed alarm and camera in place. Patient refusing to get off of the floor. MD, RN corn crop supervisor, and security notified and at bedside. Complete lift off of floor back into bed. Patient denies any pain/injuries. Bed alarm in place.
[2020-09-29 19:21] VITALS: BP 171/85; PULSE 69; RESP 16; TEMP 37.1; O2SAT 94
[2020-09-29] MEDS: LORazepam 0.5 MG TABLET PO (19:24)
[2020-09-29 23:12] VITALS: BP 144/95; PULSE 96; RESP 20; TEMP 36.6; O2SAT 91
[2020-09-30 03:39] VITALS: BP 146/82; PULSE 65; RESP 18; TEMP 36.8; O2SAT 95
[2020-09-30] MEDS: LORazepam 0.5 MG TABLET PO (03:46)
[2020-09-30 07:11] VITALS: BP 151/76; PULSE 74; RESP 17; TEMP 36.7; O2SAT 90
--- NOTE | 2020-09-30 10:09 | MHC.CM.PN ---
PATIENT IS AGREEABLE TO AMBULANCE TRANSPORT TO [facility] PLAN IS [facility] FOR 1130. RN AND UNIT AWARE OF PLAN. MDS FAXED TO [facility] AND [facility]
== END 2020-09-30 11:54 | disposition skilled nursing facility (03) | DRG 720 ==
LOC: HO.ED 14:57 → HO.EDOVER 17:02 → HO.IMC 20:33 → HO.ICU 09-15 03:19 → HO.S3 09-25 10:08
PROVIDERS: Anesthesiology; Internal Medicine; Internal Medicine Pulmonary Disease; Physician Assistant Medical; Registered Nurse Community Health; Admitting Provider Hospitalist; Emergency Provider Emergency Medicine; PCP Internal Medicine; Visit Provider Internal Medicine
DX: A41.9 Sepsis, unspecified organism (principal); J96.01 Acute respiratory failure with hypoxia; G72.81 Critical illness myopathy; I50.33 Acute on chronic diastolic (congestive) heart failure; N17.9 Acute kidney failure, unspecified; E11.42 Type 2 diabetes mellitus with diabetic polyneuropathy; F11.20 Opioid dependence, uncomplicated; I11.0 Hypertensive heart disease with heart failure; E87.2 Acidosis; E87.0 Hyperosmolality and hypernatremia; I07.1 Rheumatic tricuspid insufficiency; I27.29 Other secondary pulmonary hypertension; I50.813 Acute on chronic right heart failure; R45.851 Suicidal ideations; R74.01 Elevation of levels of liver transaminase levels; F32.9 Major depressive disorder, single episode, unspecified; F43.10 Post-traumatic stress disorder, unspecified; F17.210 Nicotine dependence, cigarettes, uncomplicated; K74.60 Unspecified cirrhosis of liver; Z59.0 Homelessness; B19.20 Unspecified viral hepatitis C without hepatic coma; I67.89 Other cerebrovascular disease; T40.1X1A Poisoning by heroin, accidental (unintentional), initial encounter; J70.4 Drug-induced interstitial lung disorders, unspecified; Y92.9 Unspecified place or not applicable; Z20.822 Contact with and (suspected) exposure to COVID-19; Z71.6 Tobacco abuse counseling; Z88.5 Allergy status to narcotic agent; Z88.6 Allergy status to analgesic agent; Z79.899 Other long term (current) drug therapy
CPT/HCPCS: 0241U; 36415; 36600; 71045; 71250; 71275; 80048; 80051; 80053; 80061; 80076; 80307; 80320; 81001; 82040; 82140; 82550; 82728; 82947; 83605; 83615; 83735; 83880; 84100; 84145; 84443; 84484; 85025; 85027; 85060; 85379; 85610; 85730; 86140; 86769; 87040; 87070; 87071; 87077; 87086; 87088; 87102; 87106; 87116; 87186; 87205; 87635; 87798; 88112; 88305; 93005; 93306; 93308; 93970; 94002; 94003; 94640; 94644; 94660; 94799; 96365; 96367; 96375; 97163; 99284; 99291; C1758; J0610; J0692; J1100; J1170; J1650; J1940; J2060; J2212; J2270; J2405; J2543; J2920; J2930; J3010; J3475; P9047; Q0163; Q9967

== ENCOUNTER 2020-10-10 08:27 | Inpatient (IN) | payer MEDICAID, SELFPAY ==
--- NOTE | ~2020-10-10 | XR_ITS ---
EXAMINATION: XR CHEST CLINICAL INFORMATION: Question pneumonia resolution COMPARISON: Chest x-ray 09/21/2020 and chest x-ray 03/04/2020 TECHNIQUE: Frontal view of the chest was obtained. FINDINGS: Cardiac silhouette is normal in size. The lungs are adequately aerated. There remains diffuse coarsening of the interstitial markings with subtle bilateral reticular changes, which although improved from imaging of 09/21/2020 they are still more prominent than imaging from 03/04/2020. No gross lobar consolidation identified. No pleural effusion or pneumothorax. XR/XR chest 1V IMPRESSION: Improved but incompletely resolved bilateral airspace disease.
--- NOTE | ~2020-10-10 | XR_ITS ---
EXAMINATION: XR CHEST CLINICAL INFORMATION: Shortness of breath COMPARISON: 10/10/2020 along with radiographs dating back to [address] chest dated 09/04/2020 TECHNIQUE: Frontal view of the chest was obtained. FINDINGS: Compared to the prior study, lungs are hypoexpanded, but otherwise unchanged. Airspace disease remains present bilaterally, probably without change but slightly accentuated because of decreased lung volumes. XR/XR chest 1V IMPRESSION: Hypoinflated lungs with bilateral airspace disease, unchanged
--- NOTE | ~2020-10-10 | XR_ITS ---
EXAMINATION: XR CHEST CLINICAL INFORMATION: Evaluate for pneumonia. COMPARISON: None TECHNIQUE: Frontal view of the chest was obtained. FINDINGS: The lungs are hypoexpanded with increase interstitial markings in both lungs likely chronic changes. Superimposed interstitial pneumonitis or edema is cannot be excluded. No pleural effusion seen. The heart size and pulmonary vascularity is normal. No gross bony abnormality. XR/XR chest 1V IMPRESSION: Hypoexpanded lungs with increase interstitial markings likely chronic. Superimposed interstitial pneumonitis or edema cannot be excluded. There is no major change compared to previous study 10/18/2020
--- NOTE | ~2020-10-10 | XR_ITS ---
EXAMINATION: XR TIBIA AND FIBULA, LEFT CLINICAL INFORMATION: Left leg ulcer. Osteomyelitis. COMPARISON: X-ray the left knee October 2015 TECHNIQUE: AP and lateral views of the left tibia and fibula were obtained. FINDINGS: Mild osteoarthritis of the left knee unchanged. Marginal osteophytes present in the medial compartment The bones and soft tissues are otherwise normal. No fracture. No osseous lesions. Do not see a visible ulceration XR/XR tibia fibula LT 2V IMPRESSION: Normal left tibia and fibula. No x-ray evidence for osteomyelitis
--- NOTE | ~2020-10-10 | CT_ITS ---
EXAMINATION: CT HEAD WITHOUT CONTRAST CLINICAL INFORMATION: Weakness for 5 days. COMPARISON: Prior CT head April [address] examinations. TECHNIQUE: Contiguous axial imaging was performed from the skull base to vertex without intravenous administration of contrast. DLP: 639 mGy-cm FINDINGS: There is no evidence of acute intracranial hemorrhage or territorial infarction. No abnormal mass effect or midline shift is seen. Anne to white matter differentiation is well preserved. No extra-axial fluid collections are identified. The ventricles are normal in size. There are patchy areas of low-density change in the cerebral white matter which are nonspecific. The osseous structures and soft tissues are normal. The mastoid air cells and visualized portions of the paranasal sinuses are well aerated. CT/CT head/brain wo con IMPRESSION: Moderate patchy areas of low-density change in the cerebral white matter which are nonspecific and similar to prior imaging. Findings may be due to chronic microangiopathy.
--- NOTE | ~2020-10-10 | CT_ITS ---
EXAMINATION: CT ANGIOGRAM OF THE CHEST WITH AND WITHOUT CONTRAST (CT PULMONARY ANGIOGRAM FOR PE) CLINICAL INFORMATION: Reason for Exam sob, hypoxia. r/o pe COMPARISON: Previous chest x-ray from earlier the same day and previous chest CT 09/19/2020 TECHNIQUE: Prior to contrast administration, noncontrast localization images were obtained. Subsequently, multidetector volumetric imaging was performed from the thoracic inlet to below the diaphragms following the administration of 65 mL Omnipaque 350 intravenous contrast. No contrast reaction reported Sagittal, coronal, and MIP oblique sagittal reformatted images were obtained on the CT workstation, uploaded to PACS, and reviewed. This CT examination was performed using dose optimization techniques as appropriate, variously including the following: *Automated exposure control *Adjustment of mA and/or kV according to patient size (this includes techniques or standardized protocols for targeted exams where dose is matched to indication/reason for exam; i.e. extremities or head) *Use of iterative reconstruction technique Total exam dose-length product 403 mGy-cm FINDINGS: QUALITY OF STUDY/CONTRAST BOLUS: Satisfactory. PULMONARY ARTERIES: There is a left segmental and subsegmental left lower lobe pulmonary emboli no other pulmonary emboli are seen. THORACIC AORTA: No aneurysm or dissection. LUNG: There are increased reticular markings seen throughout the lungs. There are peripheral or subpleural parenchymal opacities seen in the right lower lobe measuring 1.3 cm axial image 32 series 3 and 1 cm axial image 34 series 3. This is seen in areas of dense consolidation or airspace disease on 09/19/2020 exam and appear decreased in size. There are scattered areas of increased parenchymal groundglass attenuation. The previously identified bilateral lower lobe dense airspace disease and diffuse groundglass attenuation appears significantly improved. PLEURA: No pleural effusion or pneumothorax. MEDIASTINUM: Normal heart size. No pericardial effusion. There are small mediastinal and bilateral hilar lymph nodes. No enlarged lymph nodes are seen.. No evidence of septal bowing or right heart strain. CHEST WALL/AXILLA: No axillary or internal mammary lymphadenopathy. OSSEOUS STRUCTURES: There are multiple thoracic compression fractures that appear unchanged. There are degenerative changes of the spine. UPPER ABDOMEN: The liver appears cirrhotic. There is a small amount of ascites. The gallbladder has been removed. The spleen is not identified and may have been removed. There are upper abdominal varices. There are right renal stones. No reflux of contrast into the hepatic veins to suggest elevated right heart pressures. CT/CT angio chest PE protocol IMPRESSION: Left lower lobe segmental and subsegmental pulmonary emboli. Diffuse interstitial disease. Scattered areas of increased groundglass attenuation. I denser peripheral or subpleural parenchymal densities in the right lower lobe. This probably represents resolving infection. Cirrhosis, small amount of ascites, and varices. Small right renal stones. Multiple thoracic vertebral body compression fractures. VTE: positive
--- NOTE | ~2020-10-10 | US_ITS ---
EXAMINATION: US VENOUS ULTRASOUND WITH DOPPLER LOWER EXTREMITY, BILATERAL CLINICAL INFORMATION: Pulmonary embolism. Question DVT. COMPARISON: Previous exam most recent 09/15/2020 TECHNIQUE: Ultrasound of the deep veins is performed from the hip to the calf with compression sonography and color and pulse Doppler assessment. Spectral analysis with color-flow imaging is performed. FINDINGS: RIGHT: There is normal venous compression and respiratory variation and augmented flow. The visualized common femoral vein, superficial femoral vein, profunda femoral vein, popliteal vein, and the trifurcation region shows no evidence of deep venous thrombosis. There is no significant popliteal fossa cyst. LEFT: There is normal venous compression and respiratory variation and augmented flow. The visualized common femoral vein, superficial femoral vein, profunda femoral vein, popliteal vein shows no evidence of deep venous thrombosis. The patient refused evaluation of the veins in the left calf There is no significant popliteal fossa cyst. US/US venous duplex LE BI IMPRESSION: Limited exam. No DVT seen. Patient refused evaluation of the veins in the left calf.
[2020-10-10 08:33] VITALS: BP 168/89; PULSE 93; RESP 20; TEMP 36.6; O2SAT 95; BMI 23.8
--- NOTE | 2020-10-10 08:49 | ED_ITS ---
HPI - General Adult General Chief complaint: Fall Stated complaint: weakness, leg pain Time Seen by Provider: 10/10/20 10:12 Source: patient Mode of arrival: ambulatory Limitations: no limitations History of Present Illness HPI narrative: Patient presents to the ED for multiple complaints. Patient presents to ED for weakness legs with pain and dizziness. Patient states recent bout of pneumonia for 1 month and then discharged from the hospital was sent to rehab and was discharged 5 days ago. Patient states ever since being discharged has had weakness in his legs. Patient states destroying tried to get up and walk legs feel weak injury referred him bearing. Patient noticed before the ground hitting head or loss of consciousness. Patient denies any slurred speech, loss of vision, facial droop, or any focal paralysis. Related Data Previous Rx's Medication Instructions Recorded fluoxetine 40 mg PO DAILY #30 cap 06/28/20 mirtazapine 7.5 mg PO BEDTIME #30 tab 06/28/20 furosemide 20 mg PO DAILY #30 tab 09/30/20 lorazepam 0.5 mg PO Q8H PRN #10 tab 09/30/20 miconazole nitrate [Inzo 1 appl TOPICAL BID #30 g 09/30/20 Antifungal] prednisone See Taper PO DAILY #90 tab 09/30/20 Allergies Allergy/AdvReac Type Severity Reaction Status Date / Time acetaminophen [From TYLENOL] Allergy Unknown UNK Verified 08/14/20 23:59 codeine [CODEINE] Allergy Unknown RASH Verified 08/14/20 23:59 pneumococcal vaccine Allergy Unknown PARALYSIS Verified 08/14/20 23:59 [PNEUMOCOCCAL VACCINE] tuberculin, purified protein Allergy Unknown RASH Verified 08/14/20 23:59 deriva [TUBERCULIN, PURIFIED PROTEIN DERIVA] venlafaxine [From EFFEXOR] AdvReac Unknown UNKNOWN Verified 08/14/20 23:59 Review of Systems Review of Systems: Yes all other systems are reviewed and are negative Constitutional: Constitutional: Reports as per HPI and Reports no additional constitutional complaints Eyes: Eyes: Reports as per HPI and Reports no additional eye complaints ENT: Reports system reviewed and no additional complaints, except as documented, Reports as per HPI and Reports dizziness Cardiovascular: Cardiovascular: Reports as per HPI and Reports no additional cardiovascular complaints Respiratory: Respiratory: Reports as per HPI and Reports no additional respiratory complaints Gastrointestinal: Gastrointestinal: Reports as per HPI and Reports no additional gastrointestinal complaints Genitourinary: Genitourinary: Reports no additional male genitourinary complaints and Reports as per HPI Musculoskeletal: Musculoskeletal: Reports no additional musculoskeletal complaints and Reports as per HPI Comments: Bilateral leg weakness and pain. Neurologic: Reports system reviewed and no additional complaints, except as documented, Reports as per HPI and Reports dizziness Psychiatric: Psychiatric: Reports no additional psychiatric complaints and Reports as per HPI PMF Past Medical History Medical History (Updated 10/08/20 @ 00:02 by Jackelin Gutierrez) Anxiety Cerebral microvascular disease Depression Depression Diet-controlled diabetes mellitus Elevated troponin 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 Hepatitis C virus HTN (hypertension) Liver cirrhosis Major depress dis, severe Major depression in partial remission Neuropathy Opioid use disorder, moderate, in controlled environment Physical deconditioning PTSD (post-traumatic stress disorder) Pulmonary hypertension Shortness of breath Substance abuse Suicidal ideations Transaminitis Venous stasis dermatitis Surgical History H/O splenectomy Hx of cholecystectomy S/P correction of deviated nasal septum Family History Family History Father Diabetes Social History Social History Household Members: None Household Members Other:: SON Housing: Homeless Alcohol intake: never Smoking Status: Current every day smoker Tobacco Type: Cigarette Packs Per Day: 1 Cigarettes Per Day: 3 Years Smoked: 40 Smoked in Last 30 Days: Yes Second Hand Smoke Exposure: Yes Use of substances other than those prescribed or required for medical reasons: Yes Substance Use Type: Heroin Substance Use Frequency: Chronic Longstanding Last Used Substance: Just Prior to Admission Any prior treatment program specific to substance use: Yes Advance Directives: Yes Advance Directives on File: Yes Advance Directives Date on File: 10/01/20 service: Yes Current occupational status: unemployed Sexual orientation: Straight/Heterosexual Physical Exam Vital Signs: Vital Signs: Last Vital Signs Temp 97.9 F 10/10/20 08:33 Pulse 80 10/10/20 14:00 Resp 18 10/10/20 14:00 BP 139/90 H 10/10/20 16:00 Pulse Ox 92 10/10/20 16:00 Body Mass Index 23.8 Const: General: cooperative, healthy appearing, comfortable, no acute distress, well developed, alert and awake Orientation/consciousness: patient oriented x3 HENMT: Head: Yes normal to inspection, Yes No palpable skull fracture present, Yes normocephalic and Yes atraumatic Eyes: General: appearance normal, both eyes and all related structures Neck: Neck: Yes normal visual inspection, Yes full ROM, Yes no lymphadenopathy, Yes no meningeal signs, Yes trachea midline, Yes supple and No tender Chest: Chest palpation & inspection: normal inspection of the chest and normal palpation of entire chest wall Resp: Effort & Inspection: normal respiratory effort and able to speak in complete sentences Auscultation: clear to auscultation bilaterally Cardio: Jugular venous distension: no JVD Heart sounds: S1 normal heart sound present and S2 normal heart sound present GI: Inspection: Yes normal to inspection and No abdominal wall ecchymosis Palpation (GI): Soft to palpation, Firmness to palpation present (GI), nontender, no guarding and not rigid : General: No CVA tenderness and Yes no CVA tenderness Back/Spine/Pelvis: Back: no CVA tenderness, No CVA tenderness and No back tenderness Skin: General skin exam: no rashes or lesions noted and elasticity normal Neuro: Other: Negative slurred speech. Negative facial droop. Negative pronator drift. All extremities equal strength 5+. General: patient oriented x3, no meningeal signs and CN's II-XI intact bilaterally Cranial nerves: Yes CN's II-XII intact bilaterally Extrem: Other: Bilateral lower Extremity chronic pitting 1+ edema Due CHF. Left lower extremity positive for ulcerative wound on left carney is tender on palpation and has some black eschar. Site very tender. Psych: Appearance: grossly normal and well kempt Course Course Course Narrative: Patient has per EMS report was 91% room air patient placed on 2 L and now 95% oxygen. A chest x-ray to see if pneumonia resolved. Due to weather sat 91%, very words and BNP and troponin due to the patient's history CHF. Sign head CT due to patient stating for weakness and dizziness. Negative for focal neuro deficit. X-ray of the left leg to check for osteomyelitis. Lactic and blood culture ordered. Reevaluation(s) Reevaluation #1: Upon review of chart in his note on April when patient was admitted patient also had anterior tibial left venous ulcer with some necrosis and with debridement was done outpatient. Area is not warm or tender. Patient presents does not have elevated white blood cell count. Left lower extremity has palpable bounding pedal pulses. No vascular intervention indicated presently. Patient to follow with outpatient wound care. Exterior still shows opacity on x-ray with hypoxia 91% in the field patient may still have a pneumonia. Will contact hospice of hospital admission. Reevaluation #2: Waiting for response from hospitalist. Patient is not in any distress. Patient eating food. BNP negative. First troponin 11. Head CT negative for any signs of stroke. Left tib-fib negative for pneumonia. Once again patient states when he got up he said falling he did not the ground. Patient states falling described as his butt went back to the bed and states there is no impact the head/neck. Spoke with Dr. Hua and said he will forward message and this case to Dr. Brown for was familiar with this patient to discuss this C patient needs IV antibiotics and admission. Reevaluation #3: Will start patient on antibiotics IV due to x-ray shows still showing pneumonia. Also lactic 2.5 patient is not diabetic. Still waiting to hear from hospitalists. Liver enzyme a chronically elevated. Patient is not have any abdominal pain. Additional Reevaluation(s): Dr. Brown came and evaluated patient and states patient did not need IV antibiotics and does not need admission. States patient's chest x-ray reading is chronic due to recent pneumonia. He also evaluate patient's leg veinous ulcer wound and states no admission needed and patient could follow up as outpatient debridement wound clinic. He does agree of plan with patient probably should go back to short-term rehab. Will discuss with continuous pillowcase cutter. 13:00 discussed with the continuous pillowcase cutter Lizzeth and states patient will be left in the ER in the morning for placement and physical therapy. Medical Decision Making MDM Narrative Medical decision making narrative: Weakness Lab Data Result diagrams: 10/10/20 09:45 10/10/20 09:45 Labs: Lab Results 10/10/20 10/10/20 10/10/20 Range/Units 09:45 09:45 09:45 WBC 6.8 (4.8-10.8) X10*3/uL RBC 4.08 L (4.60-5.80) X10*6/uL Hgb 12.6 L (14.0-18.0) g/dl Hct 39.2 L (42-52) % MCV 96.1 (80-98) fL MCH 30.9 (27.0-33.0) pg MCHC 32.1 (31.0-36.0) g/dl RDW 22.5 H (11.0-16.0) % Plt Count 154 L D (160-400) X10*3/uL MPV 10.8 (9.4-12.4) fL Immature Gran % (Auto) 0.3 (0.0-0.4) % Neut % (Auto) 60.1 (45-73) % Lymph % (Auto) 22.1 (20-40) % Jerome % (Auto) 12.6 H (2-11) % Eos % (Auto) 4.6 H (0-4) % Baso % (Auto) 0.3 (0-2) % Lymph # (Auto) 1.5 (1.2-4.9) X10*3/uL Jerome # (Auto) 0.9 (0.1-1.2) X10*3/uL Eos # (Auto) 0.3 (0.0-0.4) X10*3/uL Baso # (Auto) 0.0 (0.0-0.2) X10*3/uL Abs Immat Gran (auto) 0.02 (0.00-0.03) X10*3/uL Absolute Neuts (auto) 4.1 (2.0-8.3) X10*3/uL Absolute Nucleated RBC 0.020 H (0.0-0.012) X10*3/uL Nucleated RBC % (auto) 0.3 H (0.0-0.2) /100WBC ESR (0-15) MM/HR PT 15.4 H D (10.8-13.0) SEC INR 1.3 H (0.9-1.1) APTT 29.6 (24.1-38.0) SEC Sodium 145 (135-145) mmol/L Potassium 3.4 D (3.3-5.1) mmol/L Chloride 104 (96-108) mmol/L Carbon Dioxide 30 H (22-29) mmol/L Anion Gap 14 (12-20) BUN 8 L D (9-16) mg/dL Creatinine 0.60 (0.5-1.4) mg/dL Estim Creat Clear Calc 146.1 Estimated GFR > 60 Random Glucose 112 (60-115) mg/dL Lactic Acid (0.5-2.0) mmol/L Lactic Acid Fup @ 2Hr (0.5-2.0) mmol/L Lactic Acid Fup @ 4Hr (0.5-2.0) mmol/L Calcium 8.4 (8.4-10.2) mg/dL Total Bilirubin 1.9 H (0.0-1.0) mg/dL AST 64 H (5-37) U/L ALT 52 H (0-40) U/L Alkaline Phosphatase 231 H D (39-117) U/L Total Creatine Kinase 70 D (38-174) U/L Troponin I High Sens (<3.5-35.0) ng/L C-Reactive Protein 3.08 H (< or = 0.50) mg/dL B-Natriuretic Peptide (<100) pg/mL Total Protein 6.0 L (6.5-8.0) g/dL Albumin 2.9 L (3.5-5.0) g/dL Urine Color Urine Appearance Urine pH (5.0-8.0) Ur Specific [place] (1.005-1.025) Urine Protein (NEG-TRACE) MG/DL Urine Glucose (UA) (NEG) MG/DL Urine Ketones (NEG) MG/DL Urine Blood (NEG) Urine Nitrite (NEG) Ur Leukocyte Esterase (NEG) COVID-19 (MARISELA) (Negative) COVID-19 Clin Com 10/10/20 10/10/20 10/10/20 Range/Units 09:45 09:45 09:45 WBC (4.8-10.8) X10*3/uL RBC (4.60-5.80) X10*6/uL Hgb (14.0-18.0) g/dl Hct (42-52) % MCV (80-98) fL MCH (27.0-33.0) pg MCHC (31.0-36.0) g/dl RDW (11.0-16.0) % Plt Count (160-400) X10*3/uL MPV (9.4-12.4) fL Immature Gran % (Auto) (0.0-0.4) % Neut % (Auto) (45-73) % Lymph % (Auto) (20-40) % Jerome % (Auto) (2-11) % Eos % (Auto) (0-4) % Baso % (Auto) (0-2) % Lymph # (Auto) (1.2-4.9) X10*3/uL Jerome # (Auto) (0.1-1.2) X10*3/uL Eos # (Auto) (0.0-0.4) X10*3/uL Baso # (Auto) (0.0-0.2) X10*3/uL Abs Immat Gran (auto) (0.00-0.03) X10*3/uL Absolute Neuts (auto) (2.0-8.3) X10*3/uL Absolute Nucleated RBC (0.0-0.012) X10*3/uL Nucleated RBC % (auto) (0.0-0.2) /100WBC ESR (0-15) MM/HR PT (10.8-13.0) SEC INR (0.9-1.1) APTT (24.1-38.0) SEC Sodium (135-145) mmol/L Potassium (3.3-5.1) mmol/L Chloride (96-108) mmol/L Carbon Dioxide (22-29) mmol/L Anion Gap (12-20) BUN (9-16) mg/dL Creatinine (0.5-1.4) mg/dL Estim Creat Clear Calc Estimated GFR Random Glucose (60-115) mg/dL Lactic Acid 2.5 H* (0.5-2.0) mmol/L Lactic Acid Fup @ 2Hr (0.5-2.0) mmol/L Lactic Acid Fup @ 4Hr (0.5-2.0) mmol/L Calcium (8.4-10.2) mg/dL Total Bilirubin (0.0-1.0) mg/dL AST (5-37) U/L ALT (0-40) U/L Alkaline Phosphatase (39-117) U/L Total Creatine Kinase (38-174) U/L Troponin I High Sens 11.3 D (<3.5-35.0) ng/L C-Reactive Protein (< or = 0.50) mg/dL B-Natriuretic Peptide 59 (<100) pg/mL Total Protein (6.5-8.0) g/dL Albumin (3.5-5.0) g/dL Urine Color Urine Appearance Urine pH (5.0-8.0) Ur Specific [place] (1.005-1.025) Urine Protein (NEG-TRACE) MG/DL Urine Glucose (UA) (NEG) MG/DL Urine Ketones (NEG) MG/DL Urine Blood (NEG) Urine Nitrite (NEG) Ur Leukocyte Esterase (NEG) COVID-19 (MARISELA) Negative (Negative) COVID-19 Clin Com See Note 10/10/20 10/10/20 10/10/20 Range/Units 09:45 11:17 12:36 WBC (4.8-10.8) X10*3/uL RBC (4.60-5.80) X10*6/uL Hgb (14.0-18.0) g/dl Hct (42-52) % MCV (80-98) fL MCH (27.0-33.0) pg MCHC (31.0-36.0) g/dl RDW (11.0-16.0) % Plt Count (160-400) X10*3/uL MPV (9.4-12.4) fL Immature Gran % (Auto) (0.0-0.4) % Neut % (Auto) (45-73) % Lymph % (Auto) (20-40) % Jerome % (Auto) (2-11) % Eos % (Auto) (0-4) % Baso % (Auto) (0-2) % Lymph # (Auto) (1.2-4.9) X10*3/uL Jerome # (Auto) (0.1-1.2) X10*3/uL Eos # (Auto) (0.0-0.4) X10*3/uL Baso # (Auto) (0.0-0.2) X10*3/uL Abs Immat Gran (auto) (0.00-0.03) X10*3/uL Absolute Neuts (auto) (2.0-8.3) X10*3/uL Absolute Nucleated RBC (0.0-0.012) X10*3/uL Nucleated RBC % (auto) (0.0-0.2) /100WBC ESR 3 (0-15) MM/HR PT (10.8-13.0) SEC INR (0.9-1.1) APTT (24.1-38.0) SEC Sodium (135-145) mmol/L Potassium (3.3-5.1) mmol/L Chloride (96-108) mmol/L Carbon Dioxide (22-29) mmol/L Anion Gap (12-20) BUN (9-16) mg/dL Creatinine (0.5-1.4) mg/dL Estim Creat Clear Calc Estimated GFR Random Glucose (60-115) mg/dL Lactic Acid (0.5-2.0) mmol/L Lactic Acid Fup @ 2Hr 3.2 H* (0.5-2.0) mmol/L Lactic Acid Fup @ 4Hr (0.5-2.0) mmol/L Calcium (8.4-10.2) mg/dL Total Bilirubin (0.0-1.0) mg/dL AST (5-37) U/L ALT (0-40) U/L Alkaline Phosphatase (39-117) U/L Total Creatine Kinase (38-174) U/L Troponin I High Sens (<3.5-35.0) ng/L C-Reactive Protein (< or = 0.50) mg/dL B-Natriuretic Peptide (<100) pg/mL Total Protein (6.5-8.0) g/dL Albumin (3.5-5.0) g/dL Urine Color PAULA Urine Appearance HAZY Urine pH 7.0 (5.0-8.0) Ur Specific [place] 1.020 (1.005-1.025) Urine Protein TRACE (NEG-TRACE) MG/DL Urine Glucose (UA) NEG (NEG) MG/DL Urine Ketones NEG (NEG) MG/DL Urine Blood NEG (NEG) Urine Nitrite NEG (NEG) Ur Leukocyte Esterase NEG (NEG) COVID-19 (MARISELA) (Negative) COVID-19 Clin Com 10/10/20 10/10/20 Range/Units 15:00 15:28 WBC (4.8-10.8) X10*3/uL RBC (4.60-5.80) X10*6/uL Hgb (14.0-18.0) g/dl Hct (42-52) % MCV (80-98) fL MCH (27.0-33.0) pg MCHC (31.0-36.0) g/dl RDW (11.0-16.0) % Plt Count (160-400) X10*3/uL MPV (9.4-12.4) fL Immature Gran % (Auto) (0.0-0.4) % Neut % (Auto) (45-73) % Lymph % (Auto) (20-40) % Jerome % (Auto) (2-11) % Eos % (Auto) (0-4) % Baso % (Auto) (0-2) % Lymph # (Auto) (1.2-4.9) X10*3/uL Jerome # (Auto) (0.1-1.2) X10*3/uL Eos # (Auto) (0.0-0.4) X10*3/uL Baso # (Auto) (0.0-0.2) X10*3/uL Abs Immat Gran (auto) (0.00-0.03) X10*3/uL Absolute Neuts (auto) (2.0-8.3) X10*3/uL Absolute Nucleated RBC (0.0-0.012) X10*3/uL Nucleated RBC % (auto) (0.0-0.2) /100WBC ESR (0-15) MM/HR PT (10.8-13.0) SEC INR (0.9-1.1) APTT (24.1-38.0) SEC Sodium (135-145) mmol/L Potassium (3.3-5.1) mmol/L Chloride (96-108) mmol/L Carbon Dioxide (22-29) mmol/L Anion Gap (12-20) BUN (9-16) mg/dL Creatinine (0.5-1.4) mg/dL Estim Creat Clear Calc Estimated GFR Random Glucose (60-115) mg/dL Lactic Acid (0.5-2.0) mmol/L Lactic Acid Fup @ 2Hr (0.5-2.0) mmol/L Lactic Acid Fup @ 4Hr 3.1 H* (0.5-2.0) mmol/L Calcium (8.4-10.2) mg/dL Total Bilirubin (0.0-1.0) mg/dL AST (5-37) U/L ALT (0-40) U/L Alkaline Phosphatase (39-117) U/L Total Creatine Kinase (38-174) U/L Troponin I High Sens 8.9 (<3.5-35.0) ng/L C-Reactive Protein (< or = 0.50) mg/dL B-Natriuretic Peptide (<100) pg/mL Total Protein (6.5-8.0) g/dL Albumin (3.5-5.0) g/dL Urine Color Urine Appearance Urine pH (5.0-8.0) Ur Specific [place] (1.005-1.025) Urine Protein (NEG-TRACE) MG/DL Urine Glucose (UA) (NEG) MG/DL Urine Ketones (NEG) MG/DL Urine Blood (NEG) Urine Nitrite (NEG) Ur Leukocyte Esterase (NEG) COVID-19 (MARISELA) (Negative) COVID-19 Clin Com ECG Data Interpretation: Normal sinus rhythm. Ventricular rate 83. Urine has been 158. QTC 474. Negative STEMI Discharge Plan Discharge Prescriptions: No Action miconazole nitrate [Inzo Antifungal] 2 % Cream 1 appl topical BID Qty: 30 RF: 0 lorazepam 0.5 mg Tablet 0.5 mg PO Q8H PRN (Reason: Anxiety) Qty: 10 RF: 0 furosemide 20 mg Tablet 20 mg PO DAILY Qty: 30 RF: 0 prednisone 10 mg tablet See Taper mg PO DAILY Qty: 90 RF: 0 mirtazapine 7.5 mg Tablet 7.5 mg PO BEDTIME Qty: 30 RF: 0 fluoxetine 20 mg capsule 40 mg PO DAILY Qty: 30 RF: 0
--- NOTE | 2020-10-10 09:02 | PC.NURSE ---
PT WITH HALF DOLLAR SIZED WOUND ON LEFT DORMAN, STATES IT HAPPEDED S/P FALL A FEW DAYS AGO.
--- NOTE | 2020-10-10 09:05 | PC.NURSE ---
PATIENTS [employer] LOCKED IN SECURITY SAF[employer]. BAG #[id number], RECEIPT IN PT CHART WITH BELONGINGS LIST. DONE WITH CLAUDE BRISCOE.
[2020-10-10 09:53] LABS: MANUAL DIFF FLAG NO
[2020-10-10 09:54] LABS: Basophils Percent Auto 0.3 % (0-2); Eosinophils Absolute Auto 0.3 X10*3/uL (0.0-0.4); Eosinophils Percent Auto 4.6 % (0-4); Hematocrit 39.2 % (42-52); Hemoglobin 12.6 g/dl (14.0-18.0); Imm Gran Abs Auto 0.02 X10*3/uL (0.00-0.03); Imm Gran Pct Auto 0.3 % (0.0-0.4); Lymphocytes Absolute Auto 1.5 X10*3/uL (1.2-4.9); Lymphocytes Percent Auto 22.1 % (20-40); Mean Corpuscular HGB Conc 32.1 g/dl (31.0-36.0); Mean Corpuscular Hemoglobin 30.9 pg (27.0-33.0); Mean Corpuscular Volume 96.1 fL (80-98); Mean Platelet Volume 10.8 fL (9.4-12.4); Monocytes Absolute Auto 0.9 X10*3/uL (0.1-1.2); Monocytes Percent Auto 12.6 % (2-11); NRBC Pct Auto 0.3 /100WBC (0.0-0.2); Neutrophils Absolute Auto 4.1 X10*3/uL (2.0-8.3); Neutrophils Percent Auto 60.1 % (45-73); Platelet Count 154 X10*3/uL (160-400); Red Blood Count 4.08 X10*6/uL (4.60-5.80); Red Cell Distribution Width 22.5 % (11.0-16.0); White Blood Count 6.8 X10*3/uL (4.8-10.8)
[2020-10-10 10:00] VITALS: BP 171/93; PULSE 89
[2020-10-10 10:08] LABS: INTERNATIONAL NORM RATIO 1.3 (0.9-1.1); Prothrombin Time 15.4 SEC (10.8-13.0)
[2020-10-10 10:09] LABS: COVID-19 Test Negative (Negative); IDNOW Serial# 9DD0AD1C
[2020-10-10 10:11] LABS: Partial Thromboplastin Time 29.6 SEC (24.1-38.0)
[2020-10-10 10:17] LABS: Alanine Aminotransferase 52 U/L (0-40); Albumin Level 2.9 g/dL (3.5-5.0); Alkaline Phosphatase 231 U/L (39-117); Anion Gap 14 (12-20); Aspartate Amino Transferase 64 U/L (5-37); Bilirubin Total 1.9 mg/dL (0.0-1.0); Blood Urea Nitrogen 8 mg/dL (9-16); Calcium 8.4 mg/dL (8.4-10.2); Carbon Dioxide 30 mmol/L (22-29); Chloride 104 mmol/L (96-108); Creatinine Clr Calc Pharmacy 146.1; Estimated Glomerular Filt Rate > 60; Glucose Random 112 mg/dL (60-115); Potassium 3.4 mmol/L (3.3-5.1); Sodium 145 mmol/L (135-145)
[2020-10-10 10:18] LABS: Lactic Acid 2.5 mmol/L (0.5-2.0)
[2020-10-10 10:23] LABS: B Type Natriuretic Peptide 59 pg/mL (<100); Troponin-I High Sensitivity 11.3 ng/L (<3.5-35.0)
--- NOTE | 2020-10-10 10:37 | ECG_ITS ---
Test Reason : FALL Blood Pressure : / mmHG Vent. Rate : 083 BPM Atrial Rate : 083 BPM P-R Int : 158 ms QRS Dur : 072 ms QT Int : 404 ms P-R-T Axes : 047 009 033 degrees QTc Int : 474 ms Normal sinus rhythm Cannot rule out posterior infarct abnormal ECG When compared with ECG of 23-SEP-2020 01:15, Vent. rate has increased BY 31 BPM Cannot rule our posterior infarct. Referred By: Tomás Nolasco Electronically Signed By:Drew Lawson
[2020-10-10 11:10] LABS: C Reactive Protein 3.08 mg/dL (< or = 0.50)
[2020-10-10] MEDS: 0.9 % Sodium Chloride 1,000 ML 999 ML IV (11:19)
[2020-10-10 11:33] VITALS: BP 139/90; PULSE 86
[2020-10-10 11:33] LABS: Glucose Urine UA NEG (NEG); Leukocyte Esterase Urine NEG (NEG); Nitrite Urine NEG (NEG); Urine Blood NEG (NEG); Urine Ketones NEG (NEG); Urine Protein TRACE MG/DL (NEG-TRACE)
[2020-10-10 11:36] LABS: Appearance Urine HAZY; Color Urine AMBER
[2020-10-10 11:45] LABS: Erythrocyte Sedimentation Rate 3 MM/HR (0-15)
[2020-10-10 11:51] LABS: Reflex Lactate? Lactic Acid Added
[2020-10-10] MEDS: cefTRIAXone sodium 1 GM in 0.9 % Sodium Chloride 50 ML IV (12:02)
[2020-10-10] MEDS: Azithromycin 500 MG in 0.9 % Sodium Chloride 250 ML 125 MG IV (12:28)
--- NOTE | 2020-10-10 12:29 | PC.NURSE ---
Pt reports last using heroin this am, snorting about 7 bags, pt states he uses 3-4 bundles daily. Requesting Suboxone- LIZETT England and Anjum, publishing specialist at bedside.
[2020-10-10 13:04] LABS: ~Lactic Acid-LAB USE ONLY 3.2 mmol/L (0.5-2.0)
--- NOTE | 2020-10-10 13:28 | PC.NURSE ---
Patient had an open, approximately 5cm wound on his left carney that was open to air with mild drainage. Wound care done and xeroform, nonstick guaze, ABD pad and guaze roll applied to the wound area.
--- NOTE | 2020-10-10 13:52 | PC.NURSE ---
Pt reports picking up rx for seroquel and gabapentin recently but is unable provide mg or other medication names. this rn unable to view in diamond picker history and unable to call [facility] pharmacy to clarify r/t pharmacy being closed. Med rec completed off of most decent discharge paperwork.
[2020-10-10 14:00] VITALS: BP 139/86; PULSE 80; RESP 18; O2SAT 98
--- NOTE | 2020-10-10 14:02 | PC.NURSE ---
Called [facility] pharmacy to verify no rx filled there- pharmacist denied recent rx.
--- NOTE | 2020-10-10 14:30 | PM.EVENT ---
Event Note Date of Service: 10/10/20 Event Note: I was consulted by ED provider for background on this patient whom I recently discharged from the hospital after prolonged hospitalization. He had been admitted with acute hypoxic respiratory failure, PNA and possible heroin related acute lung injury and required ICU level care following which he was markedly debilitated and weak, unable to walk and was insisting on leaving going home to his son who was not at that prepared to take home. Ultimately, he accepted rehab and was discharged to [facility] on 09/30 after 27 days in the hospital and we now know that he left AMA from the facility just 2 days later on 10/02 and says that he has been staying with his friend Tulio , not sure exactly where. He comes to the ED today because he feels weak and trouble walking. He vitals reviewed are fairly good, including O2 saturation of 98 on room, he is alert, and oriented. He has abraision to left anterior part of the left leg with some eschar but doesn't look infected. His labs are unremarkable other than isolated elevated lactic acid, which had fluctuated in the past as well. His CXR shows chronic changes and in fact improve from what it was. From my assessment and reviewed at this time, there is no indication for acute care and rather is need completing rehab, which unfortunately he recently failed to complete. I discussed this with Case management Shannan Cabrera and will initiate process of finding placement for rehab, understanding there is slim chance of that happening today but will the agenda first thing in the morning. I also discuss this with the ED provider Tomás Fuentes and found the plan reasoable and assured him that should his condition turn acute at any instance, the hospitalit team will admit for acute care.
[2020-10-10 14:39] LABS: Reflex Lactate? 2 Y
--- NOTE | 2020-10-10 15:07 | MHC.CM.ED ---
Addendum entered by Shannan Edmondson 10/10/20 16:30: ED RN attempted to ambulate pt but pt was unable to bear weight and feared falling. PT eval ordered to occur on 10/11. No referrals made to STR at this time - will await PT results as pt has a strong hx of leaving AMA and not adhering to treatment plans. Original Note: ED consult for assessment of d/c needs. Pt presented to ED with weakness and leg pain. Pt was recently d/c'd on 09/30 to [facility] after a very prolonged stay (27 days) for respiratory failure requiring intubation. Met with pt who was somewhat sleepy: admits to using heroin earlier in the day. States he was discharged from [facility] after 5 days and has been staying with a friend on [address] in [place]. States he is interested in detox/starting Suboxone. Met with substance counselor: will need to be free from heroin 12-24 hours before he can be assessed for program. Call placed to [facility] - pt was admitted on 09/30 and left AMA on 10/02. Review of clinical data with hospitalist: CXR findings look to be residual from previous admission per MD. Pt does not have strong criteria for admission. Discussed with MD that pt had an activated HCP as recommended by psych clinician Tommy Valencia. Unsure if this will need to be pursued during this ED visit. Pt's HCP is his son Juvenal. Pt states he last spoke with him on the day of [facility] d/c 09/30. Pt has an extensive hx of leaving AMA, continued heroin abuse and self care negligence. Although he was sleepy, he answered questions appropriately - declined wanting a rehab placement stating, those places are not for me, I'm independent, you know? Pt does not have a concrete d/c plan but has been staying with a friend locally. Doubtful he will need SNF placement or skilled VNA services. CM will follow.
--- NOTE | 2020-10-10 15:17 | PC.NURSE ---
[facility], previous STR, contacted for MAR, no changes from previous list.
--- NOTE | 2020-10-10 15:26 | MHC.RECOVSUP ---
Recovery Support note: Patient is a 60 year old Welsh speaking male who presented to [facility] ED due to a wound on his carney that occurred during a fall. Patient is known to this senior mortgage underwriter from previous consultations. Patient reported to this senior mortgage underwriter that he has found Suboxone helpful in the past and that he is interested in restarting Suboxone. Patient reports he last used at 800. Discussed with patient precipitated withdrawal and that we will need to wait around 16 hours from his last use to start Suboxone. Patient acknowledged and reports no questions. Discussed the [facility] with patient and informed him of walk in hours. Patient reports he typically goes to [facility] and finds it more convenient as the pharmacy is in the same building as the Suboxone clinic. Patient expressed interest in meeting with Golf Sales Manager Julio. Informed patient that Julio will be in tomorrow night and that if patient is still in the hospital, this senior mortgage underwriter will refer him to Julio. Patient reports no questions at this time.
[2020-10-10 15:41] LABS: ~Lactic Acid-LAB USE ONLY 3.1 mmol/L (0.5-2.0)
[2020-10-10 16:00] VITALS: BP 139/90; O2SAT 92
[2020-10-10 16:08] LABS: Troponin-I High Sensitivity 8.9 ng/L (<3.5-35.0)
--- NOTE | 2020-10-10 16:23 | PC.NURSE ---
Attempted to ambulate the patient with help from Cathy RN- Patient unable to ambulate, complained of pain and weakeness in bilateral legs and the inability to bear full weight for the fear of falling. Tomás PHOENIX informed of the patients inability to ambulate, PT consult in for the morning and case management aware. Patient is reluctant but agreeable to STR if necessary.
[2020-10-10] MEDS: FLUoxetine HCl 20 MG CAPSULE 40 MG PO (18:43)
[2020-10-10] MEDS: Furosemide 20 MG TABLET PO (18:43)
[2020-10-10] MEDS: predniSONE 10 MG TABLET 40 MG PO (18:43)
[2020-10-10] MEDS: LORazepam 0.5 MG TABLET PO (19:30)
[2020-10-10] MEDS: Mirtazapine 7.5 MG TABLET PO (19:31)
[2020-10-10] MEDS: TiZANidine HCL 4 MG TABLET PO (19:31)
[2020-10-10 23:04] VITALS: BP 99/63; PULSE 78; RESP 16; TEMP 37; O2SAT 93
--- NOTE | 2020-10-10 23:23 | PC.NURSE ---
Report received from Cathy RN and Aimee RN; care assumed. Pt noted to be resting comfortably in the stretcher with left eye open and right eye closed, respirtations even and unlabored with skin pwd. RN called patient by name with no response; pt noted to be sleeping. O2 saturations WNL with 2LPM via NC in place. Pt with call coronado on lap and RN will continue to monitor.
[2020-10-11] MEDS: QUEtiapine Fumarate 50 MG TABLET PO (03:18)
[2020-10-11 06:00] VITALS: RESP 16
[2020-10-11 08:03] VITALS: BP 138/82; PULSE 73; RESP 16; TEMP 36.6; O2SAT 95
--- NOTE | 2020-10-11 09:18 | PC.NURSE ---
pt a/o x 3 no sob/lexx note skin pink warm dry speaks in full senteces. pt ate 100% of breakfast. physical therapy at bedside earlier, pt states that he was unable to get oob at this time. clean dry dressing noted to l lower leg.
--- NOTE | 2020-10-11 09:26 | MHC.RECOVSUP ---
Recovery Support note: This senior underwriter followed up with patient to discuss withdrawal symptoms and his interest in restarting Suboxone. Patient reports he is feeling nauseous and having cravings and he is still interested in starting Suboxone. Patient reports he has not used while in the hospital and that his last use was 8AM on 10/10. Discussed case with patient's ED provider and the plan is to start patient on Suboxone.
--- NOTE | 2020-10-11 09:29 | PC.NURSE ---
pt at this time is refusing his 0900 meds because his other meds such as (seroquel, zanaflex, ativan, gabapetin) needs to be given at the same time. md morfin.
--- NOTE | 2020-10-11 09:39 | MHC.CM.ED ---
Patient remains in ER. Per [facility] recovery unit operator, patient will be started on Suboxone. Patient has a history of leaving half-way facilities AMA. Anticipate patient will be difficult to place. Referrals broadcasted to all facilities within 50 miles that accept [employer]. Continue to monitor for d/c needs.
[2020-10-11 10:27] VITALS: BP 119/78; PULSE 81; RESP 18; TEMP 36.7; O2SAT 95
[2020-10-11 10:40] LABS: Lactic Acid 2.7 mmol/L (0.5-2.0)
--- NOTE | 2020-10-11 11:20 | MHC.RECOVSUP ---
? Reason for consult:Continuity of care o Current location: Bed 6 o Identified substance use concern: Heroin - Withdrawal - Support ? Intervention: o MAT started or to be started o Community resources provided o Harm reduction discussion ? Plan: o Referral to [facility] o Patient to follow up with [facility] after discharge ? Additional information: Pt. last used last night, patient wants to return to MAT, pt is on MAT through [employer]. Pt. is stating he's starting to have cravings. Spoke to nurse.
[2020-10-11 12:00] VITALS: BP 118/71; PULSE 72; RESP 17; TEMP 36.7; O2SAT 96
[2020-10-11] MEDS: predniSONE 10 MG TABLET 40 MG PO (12:03)
[2020-10-11] MEDS: FLUoxetine HCl 20 MG CAPSULE 40 MG PO (12:03)
[2020-10-11] MEDS: Furosemide 20 MG TABLET PO (12:04)
[2020-10-11] MEDS: Buprenorphine/Naloxone 4/1 mg FILM 1 FILM SUBLINGUAL ×2 (12:04→20:28)
[2020-10-11] MEDS: Miconazole 2 % Extra Thick Cr 56.7 Gm Tube 1 APPL TOPICAL (12:04)
[2020-10-11 12:12] LABS: Reflex Lactate? Lactic Acid Added
--- NOTE | 2020-10-11 12:45 | MHC.CM.ED ---
Patient remains in the ER. No bed offers have been made yet. Referral broadcasted to all facilities within 100 miles, in the [facility] that accepts [employer]. A total of 182 referrals have been made. Continue to monitor for d/c needs.
[2020-10-11 13:00] LABS: ~Lactic Acid-LAB USE ONLY 2.2 mmol/L (0.5-2.0)
[2020-10-11 14:13] VITALS: BP 106/69; PULSE 72; RESP 16; O2SAT 97
[2020-10-11 14:24] LABS: Reflex Lactate? 2 Y
--- NOTE | 2020-10-11 14:28 | PC.NURSE ---
pt ate lunch x 2 100%
--- NOTE | 2020-10-11 15:37 | PC.NURSE ---
drdessing to l lower leg changed. area 21/4 x 11/4 inches, small amt of serous dressing noted. area cleansed with n/s followed by xeroform, telfa and then abd and wrapped with cling. pt tolerated well.
--- NOTE | 2020-10-11 15:38 | PC.NURSE ---
wound bed to l lower leg slightly darken, aware.
--- NOTE | 2020-10-11 19:23 | MHC.CM.ED ---
No bed offers yet. [facility] has shown interest, but he was just there and signed out AMA. Was started on Suboxone today. Referral to [facility] to please consider pt again. CM to follow for d/c needs.
[2020-10-11 20:26] LABS: ~Lactic Acid-LAB USE ONLY 2.5 mmol/L (0.5-2.0)
[2020-10-11 20:27] VITALS: BP 128/77; PULSE 75; RESP 16; TEMP 36.6; O2SAT 95
[2020-10-11] MEDS: Mirtazapine 7.5 MG TABLET PO (20:28)
--- NOTE | 2020-10-11 21:51 | PC.NURSE ---
PT HAS BEEN IN NAD THIS EVENING, CURRENTLY IN STRETCHER IN HALLWAY. C/O CHRONIC BILAT LE PAIN. MEDICATED PER EMR. AWARE OF PLAN TO SEARCH FOR REHAB, CURRENTLY USING URINAL TO VOID. VS WNL, SKIN PWD, RESP EVEN NONLABOURED, SPO2 WNL ON 2L VIA NC.
[2020-10-12 00:50] VITALS: BP 140/73; PULSE 73; RESP 18; O2SAT 97
--- NOTE | 2020-10-12 08:44 | MHC.CM.ED ---
Patient remains in ER. 182 referrals have been sent. No bed offers yet. [facility] is reviewing to see if they will accept him. Will reach out to facilities that haven't responded in [employer] today. Continue to monitor for d/c needs.
[2020-10-12] MEDS: predniSONE 10 MG TABLET 40 MG PO (09:15)
[2020-10-12] MEDS: Furosemide 20 MG TABLET PO (09:19)
[2020-10-12] MEDS: FLUoxetine HCl 20 MG CAPSULE 40 MG PO (09:19)
--- NOTE | 2020-10-12 09:23 | PC.NURSE ---
DECLINED SUBOXONE, STATES HE ALREADY HAD IT, MAR DOESN'THAVE IT CHARTED GIVEN, PT WILL LET US KNOW IF HE FEELS HE NEEDS IT
[2020-10-12] MEDS: LORazepam 0.5 MG TABLET PO ×2 (13:05→20:09)
[2020-10-12 13:51] VITALS: BP 134/71; PULSE 77; RESP 18; TEMP 36.8; O2SAT 95
[2020-10-12 16:58] VITALS: BP 139/80; PULSE 87; RESP 18; TEMP 36.6; O2SAT 97
[2020-10-12 18:17] VITALS: BP 142/84; PULSE 86; RESP 16; TEMP 36.3; O2SAT 96
[2020-10-12] MEDS: Mirtazapine 7.5 MG TABLET PO (20:08)
[2020-10-12] MEDS: Buprenorphine/Naloxone 4/1 mg FILM 1 FILM SUBLINGUAL (20:09)
[2020-10-12 21:31] VITALS: BP 142/78; PULSE 88; RESP 20; TEMP 36.3; O2SAT 95
[2020-10-13 01:45] VITALS: BP 136/77; PULSE 80; RESP 16; TEMP 36.5; O2SAT 98
--- NOTE | 2020-10-13 03:52 | PC.NURSE ---
Report received from Dash ARCE and care assumed. pt noted to be sleeing in stretcher with respirations even and unlabored without distress. Pt has belongings and urinal close by. RN will continue to monitor.
--- NOTE | 2020-10-13 05:54 | PC.NURSE ---
Pt continues to rest comfortably in stretcher without distress noted. Pt with urinal hanging on side of bed rail. Respirations are even and unlabored.
[2020-10-13] MEDS: FLUoxetine HCl 20 MG CAPSULE 40 MG PO (08:10)
[2020-10-13] MEDS: predniSONE 10 MG TABLET 40 MG PO (08:10)
[2020-10-13] MEDS: Buprenorphine/Naloxone 4/1 mg FILM 1 FILM SUBLINGUAL (08:10)
[2020-10-13] MEDS: Furosemide 20 MG TABLET PO (08:10)
[2020-10-13] MEDS: LORazepam 0.5 MG TABLET PO ×2 (08:16→20:17)
[2020-10-13 08:22] VITALS: BP 155/80; PULSE 65; RESP 16; TEMP 36.7; O2SAT 93
--- NOTE | 2020-10-13 10:48 | MHC.CM.ED ---
Patient remains in ER. 183 referrals sent out. No bed offers made at this time. Will continue to reach out to facilities that haven't responded in [employer]. Continue to monitor for d/c needs
[2020-10-13 19:35] VITALS: BP 158/91; PULSE 88; RESP 16; TEMP 36.4; O2SAT 96
--- NOTE | 2020-10-13 19:36 | PC.NURSE ---
Pt offered assistance with ADLs, fresh linen, ect. Pt declined at this time even after much encouragement. Pt requested and given snack. Pt resting on and off throughout this rns shift, able to verbalize needs, pleasant, calm and cooperative with care.
[2020-10-13] MEDS: Mirtazapine 7.5 MG TABLET PO (20:12)
[2020-10-13] MEDS: Miconazole 2 % Extra Thick Cr 56.7 Gm Tube 1 APPL TOPICAL (20:12)
[2020-10-13 20:35] VITALS: BP 148/80; PULSE 83; RESP 18; TEMP 36.8; O2SAT 95
[2020-10-14] MEDS: LORazepam 0.5 MG TABLET PO ×2 (03:40→21:23)
--- NOTE | 2020-10-14 03:50 | PC.NURSE ---
pt awake and alert, provided with ativan as requested, sandwich and soda.
[2020-10-14 08:21] VITALS: BP 141/75; PULSE 69; RESP 18; O2SAT 95
[2020-10-14] MEDS: Buprenorphine/Naloxone 4/1 mg FILM 1 FILM SUBLINGUAL (08:31)
[2020-10-14] MEDS: predniSONE 10 MG TABLET 40 MG PO (08:31)
[2020-10-14] MEDS: Furosemide 20 MG TABLET PO (08:32)
[2020-10-14] MEDS: Miconazole 2 % Extra Thick Cr 56.7 Gm Tube 1 APPL TOPICAL ×2 (08:32→21:29)
[2020-10-14] MEDS: FLUoxetine HCl 20 MG CAPSULE 40 MG PO (08:32)
--- NOTE | 2020-10-14 08:42 | MHC.CM.ED ---
Patient remains in ER. 183 referrals have been sent out. Will continue to reach out to facilities that haven't responded in [employer]. Continue to monitor for d/c needs.
[2020-10-14 11:49] VITALS: BP 156/89; PULSE 83; RESP 15; O2SAT 96
[2020-10-14 15:01] VITALS: BP 150/84; PULSE 81; RESP 18; O2SAT 98
[2020-10-14] MEDS: Mirtazapine 7.5 MG TABLET PO (21:23)
[2020-10-15 02:51] VITALS: BP 130/80; PULSE 71; RESP 16; O2SAT 94
[2020-10-15] MEDS: Buprenorphine/Naloxone 4/1 mg FILM 1 FILM SUBLINGUAL (10:06)
[2020-10-15] MEDS: predniSONE 10 MG TABLET 40 MG PO (10:06)
[2020-10-15] MEDS: FLUoxetine HCl 20 MG CAPSULE 40 MG PO (10:06)
[2020-10-15] MEDS: Furosemide 20 MG TABLET PO (10:06)
[2020-10-15] MEDS: LORazepam 0.5 MG TABLET PO (10:10)
[2020-10-15] MEDS: Miconazole 2 % Extra Thick Cr 56.7 Gm Tube 1 APPL TOPICAL ×2 (10:10→21:06)
[2020-10-15 11:51] VITALS: BP 137/79; PULSE 70; RESP 16; O2SAT 96
[2020-10-15 14:00] VITALS: RESP 16
--- NOTE | 2020-10-15 14:35 | PC.NURSE ---
PT BROUGHT INTO ROOM 19. ALL LINEN CHANGED. PT GIVEN HOSPITAL BED. SHORTS AND 2 DAY OLD BREIF REMOVED. PT GIVEN BED BATH. PT REQUESTING A ROOM WITH A TV, PT EDUCATED THAT HOPEFULLY TOWARDS NIGHT TIME HE CAN GET INTO A ROOM.
--- NOTE | 2020-10-15 16:44 | PC.NURSE ---
pt to bed 18 to be placed on bedpan
[2020-10-15] MEDS: Mirtazapine 7.5 MG TABLET PO (21:05)
[2020-10-15 21:07] VITALS: BP 151/93; PULSE 83; RESP 16; TEMP 36.9; O2SAT 96
[2020-10-15] MEDS: LORazepam 1 MG TABLET PO (21:50)
[2020-10-16 05:35] VITALS: RESP 16
[2020-10-16] MEDS: FLUoxetine HCl 20 MG CAPSULE 40 MG PO (09:54)
[2020-10-16] MEDS: Furosemide 20 MG TABLET PO (09:54)
[2020-10-16] MEDS: predniSONE 10 MG TABLET 40 MG PO (09:54)
[2020-10-16] MEDS: LORazepam 0.5 MG TABLET PO ×2 (09:55→20:39)
[2020-10-16] MEDS: Buprenorphine/Naloxone 4/1 mg FILM 1 FILM SUBLINGUAL (09:55)
[2020-10-16] MEDS: Miconazole 2 % Extra Thick Cr 56.7 Gm Tube 1 APPL TOPICAL (10:34)
[2020-10-16] MEDS: TiZANidine HCL 4 MG TABLET PO ×2 (10:34→20:37)
[2020-10-16] MEDS: Gabapentin 400 MG CAPSULE PO ×2 (10:35→20:38)
[2020-10-16 10:43] VITALS: BP 146/90
--- NOTE | 2020-10-16 11:25 | PC.NURSE ---
upper carney dressing changed. pt tolerated well.
[2020-10-16 14:20] VITALS: BP 98/65; PULSE 73; RESP 18; O2SAT 94
--- NOTE | 2020-10-16 18:19 | PC.NURSE ---
pt refused afternoon Gabapentin, as he could not take his tizanidine at the same time.
[2020-10-16 19:57] VITALS: BP 132/83; PULSE 91; RESP 16; TEMP 36.8; O2SAT 94
[2020-10-16] MEDS: QUEtiapine Fumarate 50 MG TABLET PO (20:37)
[2020-10-16] MEDS: Mirtazapine 7.5 MG TABLET PO (20:38)
[2020-10-17 02:00] VITALS: BP 122/84; PULSE 80; RESP 16
[2020-10-17 04:00] VITALS: BP 120/82; PULSE 84; RESP 16; O2SAT 97
[2020-10-17 08:58] VITALS: BP 134/81; PULSE 80; RESP 16; TEMP 36.7
[2020-10-17] MEDS: Gabapentin 400 MG CAPSULE PO ×2 (09:19→18:06)
[2020-10-17] MEDS: predniSONE 10 MG TABLET 40 MG PO (09:19)
[2020-10-17] MEDS: Buprenorphine/Naloxone 4/1 mg FILM 1 FILM SUBLINGUAL (09:19)
[2020-10-17] MEDS: FLUoxetine HCl 20 MG CAPSULE 40 MG PO (09:19)
[2020-10-17] MEDS: Furosemide 20 MG TABLET PO (09:20)
[2020-10-17] MEDS: TiZANidine HCL 4 MG TABLET PO ×2 (09:27→18:06)
[2020-10-17] MEDS: LORazepam 0.5 MG TABLET PO ×2 (09:27→18:12)
--- NOTE | 2020-10-17 12:30 | PC.NURSE ---
pt reports feeling a little better after the ativan, not as anxious and the leg pain has also improved a little, pain at 6/10
--- NOTE | 2020-10-17 13:18 | PC.NURSE ---
pt is currently eating lunch
[2020-10-17 15:06] VITALS: BP 113/70; PULSE 84; TEMP 36.6; O2SAT 90
--- NOTE | 2020-10-17 15:15 | PC.NURSE ---
THIS RN RECHECKED PT'S VS'S OXYGEN LEVEL FOUND TO BE LOW 90 ON ROOM AIR, PT DOES REPORT FEELING SLIGHTLY SOB, LS CLEAR HR ABOUT 82-85, RESPIRATIONS EVEN AND UNLABORED ABOUT 18. PT PUT ON 2L VIA NASAL CANNUAL. AWARE.
[2020-10-17 18:08] VITALS: BP 121/82; PULSE 93; RESP 20; O2SAT 95
--- NOTE | 2020-10-17 18:09 | PC.NURSE ---
pt requested and medicated with remoron and ativan
[2020-10-17 22:00] VITALS: BP 111/61; PULSE 82; RESP 18; O2SAT 94
[2020-10-18] MEDS: Mirtazapine 7.5 MG TABLET PO ×2 (00:50→21:01)
[2020-10-18] MEDS: Gabapentin 400 MG CAPSULE PO ×4 (00:50→21:00)
[2020-10-18] MEDS: QUEtiapine Fumarate 50 MG TABLET PO (00:54)
[2020-10-18] MEDS: LORazepam 0.5 MG TABLET PO ×3 (00:54→21:00)
[2020-10-18] MEDS: TiZANidine HCL 4 MG TABLET PO ×3 (02:19→21:02)
[2020-10-18 07:51] VITALS: BP 117/54; PULSE 89; RESP 18; O2SAT 94
[2020-10-18] MEDS: Buprenorphine/Naloxone 4/1 mg FILM 1 FILM SUBLINGUAL ×2 (08:34→21:01)
[2020-10-18] MEDS: FLUoxetine HCl 20 MG CAPSULE 40 MG PO (08:35)
[2020-10-18] MEDS: Furosemide 20 MG TABLET PO (08:36)
[2020-10-18] MEDS: Miconazole 2 % Extra Thick Cr 56.7 Gm Tube 1 APPL TOPICAL ×2 (08:36→10:31)
[2020-10-18] MEDS: predniSONE 10 MG TABLET 40 MG PO (10:31)
--- NOTE | 2020-10-18 10:49 | MHC.CM.ED ---
Patient remains in ER. 183 referrals made. No bed offers have been made yet. [facility] does not have a quarantine bed available today. Continue to monitor for d/c needs.
[2020-10-18 14:00] VITALS: RESP 16
[2020-10-18] MEDS: Furosemide 40 MG/4 ML VIAL IVPUSH (17:31)
[2020-10-18 18:45] VITALS: O2SAT 99
[2020-10-18] MEDS: Albuterol/Iprat 2.5/0.5MG 3 ML AMPUL.NEB INHALE (18:51)
[2020-10-18] MEDS: methylPREDNISolone Sod Succ 125 MG/2 ML VIAL IVPUSH (18:51)
[2020-10-18 18:59] VITALS: PULSE 107; RESP 25; O2SAT 94
[2020-10-18 19:00] LABS: ABG Refer to POC result
[2020-10-18 19:01] LABS: ABG Base Excess 3.1 mmol/L; ABG HCO3 27 mmol/L (22-26); ABG pCO2 41 mmHg (32-45); ABG pH 7.43 (7.35-7.45); ABG pO2 184 mmHg (83-108)
[2020-10-18 19:03] LABS: Basophils Percent Auto 0.1 % (0-2); Hematocrit 37.3 % (42-52); Hemoglobin 12.4 g/dl (14.0-18.0); Imm Gran Abs Auto 0.37 X10*3/uL (0.00-0.03); Imm Gran Pct Auto 2.2 % (0.0-0.4); MANUAL DIFF FLAG SCAN; Mean Corpuscular HGB Conc 33.2 g/dl (31.0-36.0); Mean Corpuscular Hemoglobin 31.2 pg (27.0-33.0); Mean Corpuscular Volume 93.7 fL (80-98); Mean Platelet Volume 11.2 fL (9.4-12.4); Monocytes Absolute Auto 1.6 X10*3/uL (0.1-1.2); Monocytes Percent Auto 9.4 % (2-11); Neutrophils Absolute Auto 11.6 X10*3/uL (2.0-8.3); Neutrophils Percent Auto 70.3 % (45-73); Platelet Count 219 X10*3/uL (160-400); Red Blood Count 3.98 X10*6/uL (4.60-5.80); Red Cell Distribution Width 20.7 % (11.0-16.0); SCAN SMEAR FLAG 1; White Blood Count 16.5 X10*3/uL (4.8-10.8)
[2020-10-18 19:19] LABS: Anion Gap 12 (12-20); Blood Urea Nitrogen 24 mg/dL (9-16); Carbon Dioxide 26 mmol/L (22-29); Chloride 105 mmol/L (96-108); Creatinine Clr Calc Pharmacy 136.9; Estimated Glomerular Filt Rate > 60; Glucose Random 152 mg/dL (60-115); Potassium 4.7 mmol/L (3.3-5.1); Sodium 138 mmol/L (135-145)
[2020-10-18 19:25] LABS: B Type Natriuretic Peptide 41 pg/mL (<100)
[2020-10-18 19:28] LABS: SLIDE REVIEW VERIFIED
--- NOTE | 2020-10-18 19:48 | PC.NURSE ---
Respiratory in patient room to assess bipap. Patient placed on nasal cannula at 6 L of oxygen. Patient's O2 sat dropped into 80's on 6L nasal cannula. Patient placed back on Bipap 10 and O2 sat up to 95 saturation
[2020-10-19] VITALS (11 sets, daily range): BP systolic 113–141; BP diastolic 67–92; PULSE 69–97; RESP 15–32; TEMP 36.6–36.9; O2SAT 92–99; BMI 23.8
--- NOTE | 2020-10-19 04:26 | PC.NURSE ---
Patient asking for food continuously. Patient given 2 sandwiches, 3 milks, 3 sodas, poptarts and icecream. Patient ringing call coronado and asking for another sandwich. Patient was told he would have to wait until breakfast for more food. Patient got angry and stated that this was bullshit and that he was going to throw the table so that this medical writer would have to pick it up. Charge nurse aware.
--- NOTE | 2020-10-19 08:18 | PC.NURSE ---
pt is refusing all patient care until he sees psych, bhn consult placed
--- NOTE | 2020-10-19 08:37 | PC.NURSE ---
ticket # [id number] items in security returned to patient
[2020-10-19] MEDS: Furosemide 20 MG TABLET PO (09:13)
[2020-10-19] MEDS: LORazepam 0.5 MG TABLET PO ×2 (09:13→21:54)
[2020-10-19] MEDS: TiZANidine HCL 4 MG TABLET PO (09:13)
[2020-10-19] MEDS: predniSONE 10 MG TABLET 40 MG PO (09:14)
--- NOTE | 2020-10-19 09:30 | PC.NURSE ---
pt had episode of desat to 76, diaphoretic pale in color. resp called and pt placed on bipap
[2020-10-19 10:01] LABS: Basophils Percent Auto 0.1 % (0-2); Hematocrit 39.7 % (42-52); Hemoglobin 13.2 g/dl (14.0-18.0); Imm Gran Abs Auto 0.41 X10*3/uL (0.00-0.03); Imm Gran Pct Auto 1.5 % (0.0-0.4); Lymphocytes Absolute Auto 3.7 X10*3/uL (1.2-4.9); Lymphocytes Percent Auto 13.1 % (20-40); MANUAL DIFF FLAG SCAN; Mean Corpuscular HGB Conc 33.2 g/dl (31.0-36.0); Mean Corpuscular Hemoglobin 31.1 pg (27.0-33.0); Mean Corpuscular Volume 93.6 fL (80-98); Mean Platelet Volume 10.7 fL (9.4-12.4); Monocytes Absolute Auto 2.6 X10*3/uL (0.1-1.2); Monocytes Percent Auto 9.2 % (2-11); NRBC Pct Auto 0.1 /100WBC (0.0-0.2); Neutrophils Absolute Auto 21.2 X10*3/uL (2.0-8.3); Neutrophils Percent Auto 76.1 % (45-73); Platelet Count 225 X10*3/uL (160-400); Red Blood Count 4.24 X10*6/uL (4.60-5.80); Red Cell Distribution Width 20.8 % (11.0-16.0); SCAN SMEAR FLAG 1; White Blood Count 27.8 X10*3/uL (4.8-10.8)
--- NOTE | 2020-10-19 10:03 | MHC.CM.ED ---
Per Mayela TERRAZAS, patient will be admitted to the hospital due to hypoxia. Continue to monitor for d/c needs.
[2020-10-19 10:24] LABS: SLIDE REVIEW VERIFIED
[2020-10-19 10:29] LABS: B Type Natriuretic Peptide 65 pg/mL (<100)
[2020-10-19 10:33] LABS: Anion Gap 11 (12-20); Blood Urea Nitrogen 26 mg/dL (9-16); Calcium 8.5 mg/dL (8.4-10.2); Carbon Dioxide 25 mmol/L (22-29); Chloride 103 mmol/L (96-108); Creatinine Clr Calc Pharmacy 162.3; Estimated Glomerular Filt Rate > 60; Glucose Random 179 mg/dL (60-115); Potassium 4.5 mmol/L (3.3-5.1); Sodium 134 mmol/L (135-145)
[2020-10-19] MEDS: Furosemide 40 MG/4 ML VIAL IVPUSH (11:01)
[2020-10-19 13:09] LABS: Appearance Urine CLEAR; Color Urine STRAW; Glucose Urine UA NEG (NEG); Leukocyte Esterase Urine NEG (NEG); Nitrite Urine NEG (NEG); Specific Gravity - Urine 1.015 (1.005-1.025); Urine Blood NEG (NEG); Urine Ketones NEG (NEG); Urine Protein NEG (NEG-TRACE)
[2020-10-19] MEDS: Piperacillin Sodium/Tazobactam 3.375 GM in 0.9 % Sodium Chloride 50 ML IV (13:11)
[2020-10-19 13:21] LABS: COVID-19 Test Negative (Negative); IDNOW Serial# 9DD0AD1C
[2020-10-19 13:29] LABS: Lactic Acid 3.1 mmol/L (0.5-2.0)
--- NOTE | 2020-10-19 13:37 | ECG_ITS ---
Test Reason : ADMISSION Blood Pressure : / mmHG Vent. Rate : 085 BPM Atrial Rate : 085 BPM P-R Int : 152 ms QRS Dur : 082 ms QT Int : 394 ms P-R-T Axes : 015 006 026 degrees QTc Int : 468 ms Normal sinus rhythm Normal ECG When compared with ECG of 10-OCT-2020 11:26, No significant change was found Referred By: Mayela Boland Electronically Signed By:MUKESH HUGHES
--- NOTE | 2020-10-19 13:49 | P.HPHOSP_ITS ---
History of Present Illness Date of Service: 10/19/20 Chief Complaint: respiratory failure This is a 60-year-old female with a past medical history as outlined below who is well known to the [facility] as well as inpatient services from prior admissions. The patient had a prolonged hospitalization from 09/02 until 09/30/2020 where he was treated for a multitude of things including pneumonia, heart failure, respiratory failure. He required treatment in the intensive care and was under mechanical ventilation. He was able to be successfully weaned from the ventilator and subsequently transitioned to the floor where his treatment was continued and ultimately he was discharged to short-term rehabilitation. Through chart review it appears that the patient did indeed go to short-term rehabilitation only to sign out against medical advice shortly thereafter. The patient presented back to [facility] ED, it appears with complaints of weakness and leg pain. His medical evaluation at that time did not meet inpatient level of care and so he has been boarding in the ED. again from chart review it appears that 183 referrals have been made, however he has not been accepted. At some point this morning it appears that the patient went into respiratory distress with saturations dropping to the mid 70s on room air. Rest was called and the patient was placed on BiPAP and repeat blood work was initiated. He was successfully able to be weaned from BiPAP down to nasal cannula. His chest x- ray revealed increased interstitial markings with superimposed interstitial pneumonitis or edema. [place] [id number], which increased from 16,000 only 2 days prior. He had cultures drawn and was given broad- spectrum IV antibiotics for possibility of pneumonia. A CTA of the chest to rule out pulmonary embolism has been requested and pending at this time. Patient is seen and examined the emergency room. He reports that he is breathing better now than he was this morning. He denies any chest pain. He does endorse nonproductive cough and shortness of breath. He also endorses constipation. At this time he is denying any SI. Review of Systems Review of Systems: General - denies fevers or chills, denies weakness or fatigue HEENT -denies blurred vision, denies headache, denies sore throat Cardiovascular - denies chest pain or palpitations, denies edema Respiratory - +SOB, +cough Gastrointestinal - denies abdominal pain, nausea, vomiting, diarrhea - denies flank pain, denies dysuria, denies frequency or urgency Musculoskeletal - denies back pain, denies hip pain, denies knee pain, denies shoulder pain Neurological - denies any focal weakness or numbness Skin, denies any bruising or redness Psychiatric - denies any suicidal ideation, hallucinations, homicidal ideation Endocrinology - denies intolerance to hot / cold temperatures [facility] Medical History (Updated 10/08/20 @ 00:02 by Background Brenda) Anxiety Cerebral microvascular disease Depression Depression Diet-controlled diabetes mellitus Elevated troponin 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 Hepatitis C virus HTN (hypertension) Liver cirrhosis Major depress dis, severe Major depression in partial remission Neuropathy Opioid use disorder, moderate, in controlled environment Physical deconditioning PTSD (post-traumatic stress disorder) Pulmonary hypertension Shortness of breath Substance abuse Suicidal ideations Transaminitis Venous stasis dermatitis Family History Father Diabetes Surgical History H/O splenectomy Hx of cholecystectomy S/P correction of deviated nasal septum Social History Household Members: None Household Members Other:: SON Housing: Homeless Do you presently have visiting nurse or other home services: No Unable to assess alcohol history related to: Unable to respond and Unknown Alcohol intake: never Smoking Status: Current every day smoker Tobacco Type: Cigarette Packs Per Day: 1 Cigarettes Per Day: 3 Years Smoked: 40 Smoked in Last 30 Days: Yes Second Hand Smoke Exposure: Yes Use of substances other than those prescribed or required for medical reasons: Yes Substance Use Type: Heroin Substance Use Frequency: Chronic Longstanding Last Used Substance: Just Prior to Admission Any prior treatment program specific to substance use: Yes Advance Directives: Yes Advance Directives on File: Yes Advance Directives Date on File: 10/01/20 service: Yes Current occupational status: unemployed Sexual orientation: Straight/Heterosexual Meds Allergies Allergy/AdvReac Type Severity Reaction Status Date / Time acetaminophen [From TYLENOL] Allergy Unknown UNK Verified 08/14/20 23:59 codeine [CODEINE] Allergy Unknown RASH Verified 08/14/20 23:59 pneumococcal vaccine Allergy Unknown PARALYSIS Verified 08/14/20 23:59 [PNEUMOCOCCAL VACCINE] tuberculin, purified protein Allergy Unknown RASH Verified 08/14/20 23:59 deriva [TUBERCULIN, PURIFIED PROTEIN DERIVA] venlafaxine [From EFFEXOR] AdvReac Unknown UNKNOWN Verified 08/14/20 23:59 Active Medications: Current Medications Generic Name Dose Route Start Last Admin Trade Name Freq PRN Reason Stop Dose Admin Buprenorphine/Naloxone 1 film 10/11/20 09:30 10/19/20 09:19 Buprenorphine/Naloxone 4/1 Mg Film SUBLINGUAL Not Given BID ELISEO Fluoxetine HCl 40 mg 10/10/20 18:30 10/19/20 09:20 Fluoxetine Hcl 20 Mg Capsule PO Not Given DAILY ELISEO Furosemide 20 mg 10/10/20 18:30 10/19/20 09:13 Furosemide 20 Mg Tablet PO 20 mg DAILY ELISEO Administration Protocol Gabapentin 400 mg 10/16/20 10:00 10/19/20 09:19 Gabapentin 400 Mg Capsule PO Not Given TID ELISEO Lorazepam 0.5 mg 10/16/20 09:44 10/19/20 09:13 Lorazepam 0.5 Mg Tablet PO 0.5 mg TID PRN Administration anxiety Miconazole Nitrate 1 appl 10/10/20 21:00 10/19/20 09:20 Miconazole 2 % Extra Thick Cr 56.7 Gm Tube TOPICAL Not Given BID ELISEO Protocol Mirtazapine 7.5 mg 10/10/20 21:00 10/18/20 21:01 Mirtazapine 7.5 Mg Tablet PO 7.5 mg BEDTIME ELISEO Administration Prednisone 40 mg 10/10/20 18:30 10/19/20 09:14 Prednisone 10 Mg Tablet PO 10/28/20 18:29 40 mg DAILY ELISEO Administration Taper Quetiapine Fumarate 50 mg 10/16/20 09:57 10/18/20 00:54 Quetiapine Fumarate 50 Mg Tablet PO 50 mg DAILY PRN Administration Restlessness Tizanidine HCl 4 mg 10/16/20 09:57 10/19/20 09:13 Tizanidine Hcl 4 Mg Tablet PO 4 mg Q8H PRN Administration muscle spasm Home Medications Medication Instructions Recorded Confirmed Last Taken Type gabapentin 1 cap PO TID 10/16/20 10/16/20 Unknown History quetiapine 1 tab PO DAILY PRN 10/16/20 10/16/20 Unknown History tizanidine 1 tab PO Q8H PRN 10/16/20 10/16/20 Unknown History Physical Exam Vital Signs and Narrative: Vital Signs: Last Vital Signs Temp 97.8 F 10/17/20 15:06 Pulse 82 10/19/20 13:32 Resp 17 10/19/20 13:32 BP 122/74 10/19/20 13:32 Pulse Ox 95 10/19/20 13:32 Body Mass Index 23.8 Const: Other: Constitutional - Awake and Alert, some respiratory distress Eyes - PERRLA, EOMI Cardiovascular - S1S2, RRR, 2-3+ pitting edema bilaterally Respiratory - scattered rhonchi, +resp distress Gastrointestinal - NT / ND; +BS; No rebound or guarding - No CVA tenderness Extremities - no calf tenderness bilaterally, no swelling Musculoskeletal - Normal inspection, normal ROM Skin - Warm/Dry, dressing in place LE Neurological - Alert & oriented x3, No focal deficit Psychological - Appropriate affect Results Labs CBC and Chem 7: 10/19/20 09:54 10/19/20 09:54 Labs: Laboratory Results - last 24 hr 10/18/20 10/18/20 10/18/20 18:53 18:55 18:55 MCV 93.7 MCH 31.2 MCHC 33.2 RDW 20.7 H Plt Count 219 D MPV 11.2 Immature Gran % (Auto) 2.2 H Neut % (Auto) 70.3 Lymph % (Auto) 18.0 L [place] % (Auto) 9.4 Eos % (Auto) 0.0 Baso % (Auto) 0.1 Lymph # (Auto) 3.0 [place] # (Auto) 1.6 H Eos # (Auto) 0.0 Baso # (Auto) 0.0 Abs Immat Gran (auto) 0.37 H Absolute Neuts (auto) 11.6 H Absolute Nucleated RBC 0.000 Nucleated RBC % (auto) 0.0 Smear Tech's Comments VERIFIED O2 Saturation 99.0 ABG pH at Pt Temp 7.43 ABG pCO2 at Pt Temp 41 ABG pO2 at Pt Temp 184 H ABG HCO3 27 H ABG Base Excess (Actual) 3.1 Anion Gap 12 Estim Creat Clear Calc 136.9 Estimated GFR > 60 Random Glucose 152 H D Lactic Acid Calcium 8.0 L B-Natriuretic Peptide Urine Color Urine Appearance Urine pH Ur Specific [place] Urine Protein Urine Glucose (UA) Urine Ketones Urine Blood Urine Nitrite Ur Leukocyte Esterase COVID-19 (MARISELA) COVID-19 Clin [facility] 10/18/20 10/19/20 10/19/20 18:55 09:54 09:54 MCV 93.6 MCH 31.1 MCHC 33.2 RDW 20.8 H Plt Count 225 MPV 10.7 Immature Gran % (Auto) 1.5 H Neut % (Auto) 76.1 H Lymph % (Auto) 13.1 L [place] % (Auto) 9.2 Eos % (Auto) 0.0 Baso % (Auto) 0.1 Lymph # (Auto) 3.7 [place] # (Auto) 2.6 H Eos # (Auto) 0.0 Baso # (Auto) 0.0 Abs Immat Gran (auto) 0.41 H Absolute Neuts (auto) 21.2 H Absolute Nucleated RBC 0.020 H Nucleated RBC % (auto) 0.1 Smear Tech's Comments VERIFIED O2 Saturation ABG pH at Pt Temp ABG pCO2 at Pt Temp ABG pO2 at Pt Temp ABG HCO3 ABG Base Excess (Actual) Anion Gap 11 L Estim Creat Clear Calc 162.3 Estimated GFR > 60 Random Glucose 179 H Lactic Acid Calcium 8.5 D B-Natriuretic Peptide 41 Urine Color Urine Appearance Urine pH Ur Specific [place] Urine Protein Urine Glucose (UA) Urine Ketones Urine Blood Urine Nitrite Ur Leukocyte Esterase COVID-19 (MARISELA) COVID-19 Clin [facility] 10/19/20 10/19/20 10/19/20 09:54 12:45 12:46 MCV MCH MCHC RDW Plt Count MPV Immature Gran % (Auto) Neut % (Auto) Lymph % (Auto) [place] % (Auto) Eos % (Auto) Baso % (Auto) Lymph # (Auto) [place] # (Auto) Eos # (Auto) Baso # (Auto) Abs Immat Gran (auto) Absolute Neuts (auto) Absolute Nucleated RBC Nucleated RBC % (auto) Smear Tech's Comments O2 Saturation ABG pH at Pt Temp ABG pCO2 at Pt Temp ABG pO2 at Pt Temp ABG HCO3 ABG Base Excess (Actual) Anion Gap Estim Creat Clear Calc Estimated GFR Random Glucose Lactic Acid Calcium B-Natriuretic Peptide 65 Urine Color STRAW Urine Appearance CLEAR Urine pH 6.0 Ur Specific [place] 1.015 Urine Protein NEG Urine Glucose (UA) NEG Urine Ketones NEG Urine Blood NEG Urine Nitrite NEG Ur Leukocyte Esterase NEG COVID-19 (MARISELA) Negative COVID-19 Clin Com See Note 10/19/20 12:53 MCV MCH MCHC RDW Plt Count MPV Immature Gran % (Auto) Neut % (Auto) Lymph % (Auto) [place] % (Auto) Eos % (Auto) Baso % (Auto) Lymph # (Auto) [place] # (Auto) Eos # (Auto) Baso # (Auto) Abs Immat Gran (auto) Absolute Neuts (auto) Absolute Nucleated RBC Nucleated RBC % (auto) Smear Tech's Comments O2 Saturation ABG pH at Pt Temp ABG pCO2 at Pt Temp ABG pO2 at Pt Temp ABG HCO3 ABG Base Excess (Actual) Anion Gap Estim Creat Clear Calc Estimated GFR Random Glucose Lactic Acid 3.1 H* Calcium B-Natriuretic Peptide Urine Color Urine Appearance Urine pH Ur Specific [place] Urine Protein Urine Glucose (UA) Urine Ketones Urine Blood Urine Nitrite Ur Leukocyte Esterase COVID-19 (MARISELA) COVID-19 Clin Com Imaging Radiologist's Impressions: Impressions Chest X-Ray 10/18/20 17:12 IMPRESSION: Hypoinflated lungs with bilateral airspace disease, unchanged Chest X-Ray 10/19/20 10:50 IMPRESSION: Hypoexpanded lungs with increase interstitial markings likely chronic. Superimposed interstitial pneumonitis or edema cannot be excluded. There is no major change compared to previous study 10/18/2020 Assessment and Plan (1) Acute respiratory failure with hypoxia: Status: Acute This is a 60 yo M with a PMH of IVDU, Cirrhosis, Hep C, HTN, PTSD/Anxiety, Diet Controlled DM who had a recent prolonged hospitalization at [facility] due to respiratory failure / pneumonia requiring mechanical ventilation. He was successfully treated and was transition to the floor and ultimately transitioned to short-term rehabilitation where it is reported he was only admitted briefly prior to signing out AMA. He has been boarding in the emergency room awaiting placement and on the morning of 10/19/2020 he was noted to be hypoxic with worsening respiratory status and is now being admitted for further treatment. 1. Acute respiratory failure with hypoxia Required BiPAP in the emergency room and now transitioned to nasal cannula Chest x-ray showing some acute findings with possible pneumonitis vs pulm edema. Given a dose of IV lasix, will see his urine output and then determine further diuretics During prior admission -- D-dimer was significantly elevated. DVT/PE were ruled out then. Nonetheless, given his prolonged immobility in the ED, will check CTA of the chest He has been empirically covered for HCAP with a dose of vancomcyin and zoysn. Will see CT shows any major infiltrates and further antibiotics depending on the results. Check a Procalcitonin levels. BNP within normal limits, but he does have significant lower extremity edema. Echo from 09/03/20 showing perserved EF, grade 1 diastolic dysfunction and pulmonary HTN. 2. Lactic Acidosis do not feel this is related to severe sepsis but rather his significant hypoxia monitor 3. Chronic opiate dependence on suboxone, will continue avoid narcotics 4. Mood continue his baseline meds Full Code DVT pptx, Lovenox Addendum: CTA resulted positive for PE. Will start lovenox 1mg/kg. Also with diffuse interstitial disease. Will start solu-medrol. Will consult Pulmonary.
--- NOTE | 2020-10-19 14:39 | PC.NURSE ---
pts iv infiltrated in ct, attempting to get access this rn tried 3 times chg rn is trying now
--- NOTE | 2020-10-19 14:43 | PC.NURSE ---
iv access by maynor madison
[2020-10-19 14:50] LABS: D Dimer 17640 NG/ML
[2020-10-19 14:57] LABS: Procalcitonin 0.04 ng/mL
[2020-10-19 14:57] LABS: Reflex Lactate? Lactic Acid Added
[2020-10-19] MEDS: vancomycin HCL 1,250 MG in 0.9 % Sodium Chloride 250 ML 166.67 MG IV (15:32)
[2020-10-19] MEDS: iohexoL 350 MG/ML 100 ML INFUS..BTL IV (16:00)
[2020-10-19 16:04] LABS: ~Lactic Acid-LAB USE ONLY 3.6 mmol/L (0.5-2.0)
--- NOTE | 2020-10-19 17:13 | PC.NURSE ---
PT PLACED ON VENT MASK AT 55% AFTER EPISODE OF DESAT.INTO THE LOW 80'S
[2020-10-19 17:36] LABS: Reflex Lactate? 2 Y
--- NOTE | 2020-10-19 18:21 | PC.NURSE ---
REPORT GIVEN FOR [facility] ADMISSION
[2020-10-19] MEDS: Enoxaparin Sodium 80 MG/0.8 ML SYRINGE SUBCUT (18:31)
[2020-10-19 18:57] LABS: ~Lactic Acid-LAB USE ONLY 2.7 mmol/L (0.5-2.0)
[2020-10-19] MEDS: Albuterol/Iprat 2.5/0.5MG 3 ML AMPUL.NEB INHALE (20:28)
[2020-10-19] MEDS: 0.9 % Sodium Chloride Flush 3 ML SYRINGE IVFLUSH (21:04)
[2020-10-19] MEDS: Miconazole 2 % Extra Thick Cr 56.7 Gm Tube 1 APPL TOPICAL (21:04)
[2020-10-19] MEDS: methylPREDNISolone Sod Succ 40 MG/ML VIAL IVPUSH (21:04)
[2020-10-19] MEDS: Gabapentin 400 MG CAPSULE PO (21:05)
[2020-10-19] MEDS: QUEtiapine Fumarate 50 MG TABLET PO (21:06)
[2020-10-19] MEDS: Buprenorphine/Naloxone 4/1 mg FILM 1 FILM SUBLINGUAL (21:06)
[2020-10-19] MEDS: Mirtazapine 7.5 MG TABLET PO (21:53)
--- NOTE | 2020-10-19 22:09 | PC.NURSE ---
pharmacy working on IV decadron - per telephone conversation. CT scan ready for pt - nsg supv aware & on her way for assist.
[2020-10-20] VITALS (7 sets, daily range): BP systolic 119–174; BP diastolic 74–94; PULSE 63–87; RESP 17–18; TEMP 36.1–36.9; O2SAT 93–98; BMI 23.8
[2020-10-20] MEDS: 0.9 % Sodium Chloride Flush 3 ML SYRINGE IVFLUSH ×4 (01:04→21:17)
[2020-10-20] MEDS: methylPREDNISolone Sod Succ 40 MG/ML VIAL IVPUSH ×3 (04:32→20:11)
[2020-10-20] MEDS: Gabapentin 400 MG CAPSULE PO ×3 (10:24→20:13)
[2020-10-20] MEDS: Enoxaparin Sodium 80 MG/0.8 ML SYRINGE SUBCUT ×2 (10:24→20:12)
[2020-10-20] MEDS: FLUoxetine HCl 20 MG CAPSULE 40 MG PO (10:24)
[2020-10-20] MEDS: Miconazole 2 % Extra Thick Cr 56.7 Gm Tube 1 APPL TOPICAL ×2 (10:25→20:14)
[2020-10-20] MEDS: TiZANidine HCL 4 MG TABLET PO ×2 (10:27→20:12)
[2020-10-20] MEDS: LORazepam 0.5 MG TABLET PO (10:27)
--- NOTE | 2020-10-20 10:41 | HO.PM.IMPN ---
Subjective Subjective Date of Service: 10/20/20 Interval History: tired, didnt sleep last night Cardiovascular Cardiovascular: Reports no additional cardiovascular complaints Gastrointestinal Gastrointestinal: Reports no additional gastrointestinal complaints Physical Exam Vital Signs: Vital Signs: Last Vital Signs Temp 97.5 F 10/20/20 07:42 Pulse 72 10/20/20 07:42 Resp 18 10/20/20 07:42 BP 174/94 H 10/20/20 07:42 Pulse Ox 97 10/20/20 07:42 Body Mass Index 23.8 General: lethargic, ill appearing Resp: Crackles CVS: S1,S2,RRR GI: soft, non tender, non distended Neuro: motor grossly intact Psych: flat affect Objective Data Current Medications Generic Name Dose Route Start Last Admin Trade Name Freq PRN Reason Stop Dose Admin Albuterol/Ipratropium 3 ml 10/19/20 20:00 10/20/20 07:24 Albuterol/Iprat 2.5/0.5mg 3 Ml Ampul.Neb INHALE Not Given RQ4H WHILE AWAKE ELISEO Buprenorphine/Naloxone 1 film 10/11/20 09:30 10/20/20 10:25 Buprenorphine/Naloxone 4/1 Mg Film SUBLINGUAL Not Given BID ELISEO Enoxaparin Sodium 80 mg 10/19/20 20:00 10/20/20 10:24 Enoxaparin Sodium 80 Mg/0.8 Ml Syringe SUBCUT 80 mg Q12H ELISEO Administration Fluoxetine HCl 40 mg 10/10/20 18:30 10/20/20 10:24 Fluoxetine Hcl 20 Mg Capsule PO 40 mg DAILY ELISEO Administration Furosemide 20 mg 10/10/20 18:30 10/19/20 09:13 Furosemide 20 Mg Tablet PO 20 mg DAILY ELISEO Administration Protocol Gabapentin 400 mg 10/16/20 10:00 10/20/20 10:24 Gabapentin 400 Mg Capsule PO 400 mg TID ELISEO Administration Lorazepam 0.5 mg 10/16/20 09:44 10/20/20 10:27 Lorazepam 0.5 Mg Tablet PO 0.5 mg TID PRN Administration anxiety Methylprednisolone Sodium Succinate 40 mg 10/20/20 05:00 10/20/20 04:32 Methylprednisolone Sod Succ 40 Mg/Ml Vial IVPUSH 40 mg Q8H ELISEO Administration Miconazole Nitrate 1 appl 10/10/20 21:00 10/20/20 10:25 Miconazole 2 % Extra Thick Cr 56.7 Gm Tube TOPICAL 1 appl BID ELISEO Administration Protocol Mirtazapine 7.5 mg 10/10/20 21:00 10/19/20 21:53 Mirtazapine 7.5 Mg Tablet PO 7.5 mg BEDTIME ELISEO Administration Ondansetron HCl 4 mg 10/19/20 14:44 Ondansetron Hcl 4 Mg/2 Ml Vial IVPUSH Q8H PRN Nausea and Vomiting Quetiapine Fumarate 50 mg 10/16/20 09:57 10/19/20 21:06 Quetiapine Fumarate 50 Mg Tablet PO 50 mg DAILY PRN Administration Restlessness Sodium Chloride 3 ml 10/19/20 16:00 10/20/20 10:25 0.9 % Sodium Chloride Flush 3 Ml Syringe IVFLUSH 3 ml QSHIFT ELISEO Administration Tizanidine HCl 4 mg 10/16/20 09:57 10/20/20 10:27 Tizanidine Hcl 4 Mg Tablet PO 4 mg Q8H PRN Administration muscle spasm Labs CBC & Chem 7: 10/19/20 09:54 10/19/20 09:54 Microbiology Microbiology Results: Microbiology 10/10/20 10:16 Blood - Venous Blood Culture - Final No growth after 5 days. 10/10/20 09:45 Blood - Venous Blood Culture - Final No growth after 5 days. Assessment and Plan (1) Acute respiratory failure with hypoxia: Status: Acute Assessment and Plan: 60M presented with hypoxia while waiting in ED for placement found to have PE. 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
--- NOTE | 2020-10-20 11:47 | P.CONPL_ITS ---
History of Present Illness History of Present Illness Consult date: 10/20/20 Chief complaint: respiratory failure Narrative: This is a 60-year-old female with a past medical history of heart failure, respiratory failure. He required treatment in the intensive care and was under mechanical ventilation. He was able to be successfully weaned from the ventilator and subsequently transitioned to the floor where his treatment was continued and ultimately he was discharged to short-term rehabilitation. The patient presented back to [place] ED, it appears with complaints of weakness and leg pain. The patient went into respiratory distress with saturations dropping to the mid 70s on room air. Rest was called and the patient was placed on BiPAP and repeat blood work was initiated. He was successfully able to be weaned from BiPAP down to nasal cannula. His chest x-ray revealed increased interstitial markings with superimposed interstitial pneumonitis or edema. [place] [id number], which increased from 16,000 only 2 days prior. He had cultures drawn and was given broad-spectrum IV antibiotics for possibility of pneumonia. A CTA +PE and also extensive ILD. It appears that his pneumonitis from previous CT organized into more fibrotic changes. Review of Systems Constitutional: Constitutional: Denies chills, Reports daytime sleepiness, Reports difficulty sleeping, Reports fatigue and Denies night sweats ENT: Denies change in voice, Denies lip swelling, Denies mouth pain, Reports nasal congestion, Reports nasal discharge and Denies tongue swelling Cardiovascular: Cardiovascular: Denies chest pain and Reports dyspnea Respiratory: Respiratory: Reports cough and Reports dyspnea Gastrointestinal: Gastrointestinal: Denies abdominal pain Musculoskeletal: Musculoskeletal: Denies no additional musculoskeletal complaints Neurologic: Denies Neuro-related abnormal movements Psychiatric: Psychiatric: Denies no additional psychiatric complaints Endocrine: Endocrine: Reports fatigue Hematologic/Lymphatic: Hematologic/Lymphatic: Denies easy bleeding and Denies lymphadenopathy Allergic/Immunologic: Allergic/Immunologic: Denies lip swelling and Denies tongue swelling [facility] Past Medical History Medical History (Updated 10/20/20 @ 12:12 by Brian Tierney MD) Anxiety Cerebral microvascular disease Depression Depression Diet-controlled diabetes mellitus Elevated troponin 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 Hepatitis C virus HTN (hypertension) ILD (interstitial lung disease) Liver cirrhosis Major depress dis, severe Major depression in partial remission Neuropathy Opioid use disorder, moderate, in controlled environment Physical deconditioning PTSD (post-traumatic stress disorder) Pulmonary embolism without acute cor pulmonale Pulmonary hypertension Shortness of breath Substance abuse Suicidal ideations Transaminitis Venous stasis dermatitis Family History Family History Father Diabetes Surgical History Surgical History H/O splenectomy Hx of cholecystectomy S/P correction of deviated nasal septum Social History Social History Household Members: None Household Members Other:: SON Housing: Homeless Unable to assess alcohol history related to: Unable to respond and Unknown Alcohol intake: never Cigarette Packs Per Day: 1 Cigarettes Per Day: 3 Years Smoked: 40 Smoked in Last 30 Days: Yes Patient Interested in Nicotine Replacement: Yes Patient Given Instructions on How to Stop Smoking: Yes Date Education Initiated: 10/20/20 Second Hand Smoke Exposure: Yes Use of substances other than those prescribed or required for medical reasons: Yes Substance Use Type: Heroin Substance Use Frequency: Daily Last Used Substance: Just Prior to Admission Currently Displaying Signs/Symptoms of Drug Intoxication Withdrawal: No Any prior treatment program specific to substance use: Yes (ceboxone) Advance Directives: Yes Advance Directives on File: Yes Advance Directives Date on File: 10/01/20 Do you have thoughts of harming others: None Do you have a plan to hurt others: No Plan Recently lost weight without trying: Unsure How much weight loss: Unsure Eating poorly because of decreased appetite: No Nutrition screen score: 4 Poor oral hygiene: Yes service: Yes Current occupational status: unemployed Sexual orientation: Straight/Heterosexual Meds Allergies Allergy/AdvReac Type Severity Reaction Status Date / Time acetaminophen [From TYLENOL] Allergy Unknown UNK Verified 08/14/20 23:59 codeine [CODEINE] Allergy Unknown RASH Verified 08/14/20 23:59 pneumococcal vaccine Allergy Unknown PARALYSIS Verified 08/14/20 23:59 [PNEUMOCOCCAL VACCINE] tuberculin, purified protein Allergy Unknown RASH Verified 08/14/20 23:59 deriva [TUBERCULIN, PURIFIED PROTEIN DERIVA] venlafaxine [From EFFEXOR] AdvReac Unknown UNKNOWN Verified 08/14/20 23:59 Active Medications: Current Medications Generic Name Dose Route Start Last Admin Trade Name Freq PRN Reason Stop Dose Admin Albuterol/Ipratropium 3 ml 10/19/20 20:00 10/20/20 11:14 Albuterol/Iprat 2.5/0.5mg 3 Ml Ampul.Neb INHALE Not Given RQ4H WHILE AWAKE [facility] Buprenorphine/Naloxone 1 film 10/11/20 09:30 10/20/20 10:25 Buprenorphine/Naloxone 4/1 Mg Film SUBLINGUAL Not Given BID ELISEO Enoxaparin Sodium 80 mg 10/19/20 20:00 10/20/20 10:24 Enoxaparin Sodium 80 Mg/0.8 Ml Syringe SUBCUT 80 mg Q12H ELISEO Administration Fluoxetine HCl 40 mg 10/10/20 18:30 10/20/20 10:24 Fluoxetine Hcl 20 Mg Capsule PO 40 mg DAILY ELISEO Administration Furosemide 20 mg 10/10/20 18:30 10/19/20 09:13 Furosemide 20 Mg Tablet PO 20 mg DAILY ELISEO Administration Protocol Gabapentin 400 mg 10/16/20 10:00 10/20/20 10:24 Gabapentin 400 Mg Capsule PO 400 mg TID ELISEO Administration Lorazepam 0.5 mg 10/16/20 09:44 10/20/20 10:27 Lorazepam 0.5 Mg Tablet PO 0.5 mg TID PRN Administration anxiety Methylprednisolone Sodium Succinate 40 mg 10/20/20 05:00 10/20/20 04:32 Methylprednisolone Sod Succ 40 Mg/Ml Vial IVPUSH 40 mg Q8H ELISEO Administration Miconazole Nitrate 1 appl 10/10/20 21:00 10/20/20 10:25 Miconazole 2 % Extra Thick Cr 56.7 Gm Tube TOPICAL 1 appl BID ELISEO Administration Protocol Mirtazapine 7.5 mg 10/10/20 21:00 10/19/20 21:53 Mirtazapine 7.5 Mg Tablet PO 7.5 mg BEDTIME ELISEO Administration Ondansetron HCl 4 mg 10/19/20 14:44 Ondansetron Hcl 4 Mg/2 Ml Vial IVPUSH Q8H PRN Nausea and Vomiting Quetiapine Fumarate 50 mg 10/16/20 09:57 10/19/20 21:06 Quetiapine Fumarate 50 Mg Tablet PO 50 mg DAILY PRN Administration Restlessness Sodium Chloride 3 ml 10/19/20 16:00 10/20/20 10:25 0.9 % Sodium Chloride Flush 3 Ml Syringe IVFLUSH 3 ml QSHIFT ELISEO Administration Tizanidine HCl 4 mg 05/22/21 09:57 10/20/20 10:27 Tizanidine Hcl 4 Mg Tablet PO 4 mg Q8H PRN Administration muscle spasm Home Medications Medication Instructions Recorded Confirmed Last Taken Type gabapentin 1 cap PO TID 10/16/20 10/16/20 Unknown History quetiapine 1 tab PO DAILY PRN 10/16/20 10/16/20 Unknown History tizanidine 1 tab PO Q8H PRN 10/16/20 10/16/20 Unknown History Physical Exam Vital Signs: Vital Signs: Last Vital Signs Temp 97.6 F 10/20/20 11:05 Pulse 70 10/20/20 11:05 Resp 17 10/20/20 11:05 BP 136/86 10/20/20 11:05 Pulse Ox 97 10/20/20 11:05 Body Mass Index 23.8 Const: General: ill appearing Eyes: Pupils: Equal, round and reactive pupils present Neck: Neck: Yes normal visual inspection, Yes full ROM and Yes no lymphadenopathy Chest: Chest palpation & inspection: normal inspection of the chest Resp: Auscultation: diminished lung sounds Cardio: Rate: regular rate Rhythm: regular rhythm Heart sounds: S1 normal heart sound present and S2 normal heart sound present GI: Palpation (GI): Soft to palpation and nontender Auscultation: normal hank wel sounds Skin: General skin exam: rashes and/or lesions noted Neuro: Cranial nerves: Yes Equal, round and reactive pupils present Extrem: General: Yes edema Results Laboratory Findings CBC and BMP: 10/19/20 09:54 10/19/20 09:54 ABG, PT/INR, D-dimer: PT/INR, D-dimer PT 15.4 SEC (10.8-13.0) H D 10/10/20 09:45 INR 1.3 (0.9-1.1) H 10/10/20 09:45 D-Dimer [id number] NG/ML 10/19/20 14:04 Abnormal lab findings: Abnormal Labs 10/10/20 10/10/20 10/10/20 09:45 09:45 09:45 WBC RBC 4.08 L Hgb 12.6 L Hct 39.2 L RDW 22.5 H Plt Count 154 L D Immature Gran % (Auto) Neut % (Auto) Lymph % (Auto) [place] % (Auto) 12.6 H Eos % (Auto) 4.6 H [place] # (Auto) Abs Immat Gran (auto) Absolute Neuts (auto) Absolute Nucleated RBC 0.020 H Nucleated RBC % (auto) 0.3 H PT 15.4 H D INR 1.3 H ABG pO2 at Pt Temp ABG HCO3 Sodium Carbon Dioxide 30 H Anion Gap BUN 8 L D Random Glucose Lactic Acid Lactic Acid Fup @ 2Hr Lactic Acid Fup @ 4Hr Calcium Total Bilirubin 1.9 H AST 64 H ALT 52 H Alkaline Phosphatase 231 H D C-Reactive Protein 3.08 H Total Protein 6.0 L Albumin 2.9 L 10/10/20 10/10/20 10/10/20 09:45 12:36 15:00 WBC RBC Hgb Hct RDW Plt Count Immature Gran % (Auto) Neut % (Auto) Lymph % (Auto) [place] % (Auto) Eos % (Auto) [place] # (Auto) Abs Immat Gran (auto) Absolute Neuts (auto) Absolute Nucleated RBC Nucleated RBC % (auto) PT INR ABG pO2 at Pt Temp ABG HCO3 Sodium Carbon Dioxide Anion Gap BUN Random Glucose Lactic Acid 2.5 H* Lactic Acid Fup @ 2Hr 3.2 H* Lactic Acid Fup @ 4Hr 3.1 H* Calcium Total Bilirubin AST ALT Alkaline Phosphatase C-Reactive Protein Total Protein Albumin 10/11/20 10/11/20 10/11/20 10:08 12:21 19:46 WBC RBC Hgb Hct RDW Plt Count Immature Gran % (Auto) Neut % (Auto) Lymph % (Auto) [place] % (Auto) Eos % (Auto) [place] # (Auto) Abs Immat Gran (auto) Absolute Neuts (auto) Absolute Nucleated RBC Nucleated RBC % (auto) PT INR ABG pO2 at Pt Temp ABG HCO3 Sodium Carbon Dioxide Anion Gap BUN Random Glucose Lactic Acid 2.7 H* Lactic Acid Fup @ 2Hr 2.2 H* Lactic Acid Fup @ 4Hr 2.5 H* Calcium Total Bilirubin AST ALT Alkaline Phosphatase C-Reactive Protein Total Protein Albumin 10/18/20 10/18/20 10/18/20 18:53 18:55 18:55 WBC 16.5 H RBC 3.98 L Hgb 12.4 L Hct 37.3 L RDW 20.7 H Plt Count Immature Gran % (Auto) 2.2 H Neut % (Auto) Lymph % (Auto) 18.0 L [place] % (Auto) Eos % (Auto) [place] # (Auto) 1.6 H Abs Immat Gran (auto) 0.37 H Absolute Neuts (auto) 11.6 H Absolute Nucleated RBC Nucleated RBC % (auto) PT INR ABG pO2 at Pt Temp 184 H ABG HCO3 27 H Sodium Carbon Dioxide Anion Gap BUN 24 H D Random Glucose 152 H D Lactic Acid Lactic Acid Fup @ 2Hr Lactic Acid Fup @ 4Hr Calcium 8.0 L Total Bilirubin AST ALT Alkaline Phosphatase C-Reactive Protein Total Protein Albumin 10/19/20 10/19/20 10/19/20 09:54 09:54 12:53 WBC 27.8 H RBC 4.24 L Hgb 13.2 L Hct 39.7 L RDW 20.8 H Plt Count Immature Gran % (Auto) 1.5 H Neut % (Auto) 76.1 H Lymph % (Auto) 13.1 L [place] % (Auto) Eos % (Auto) [place] # (Auto) 2.6 H Abs Immat Gran (auto) 0.41 H Absolute Neuts (auto) 21.2 H Absolute Nucleated RBC 0.020 H Nucleated RBC % (auto) PT INR ABG pO2 at Pt Temp ABG HCO3 Sodium 134 L Carbon Dioxide Anion Gap 11 L BUN 26 H Random Glucose 179 H Lactic Acid 3.1 H* Lactic Acid Fup @ 2Hr Lactic Acid Fup @ 4Hr Calcium Total Bilirubin AST ALT Alkaline Phosphatase C-Reactive Protein Total Protein Albumin 10/19/20 10/19/20 15:33 18:24 WBC RBC Hgb Hct RDW Plt Count Immature Gran % (Auto) Neut % (Auto) Lymph % (Auto) [place] % (Auto) Eos % (Auto) [place] # (Auto) Abs Immat Gran (auto) Absolute Neuts (auto) Absolute Nucleated RBC Nucleated RBC % (auto) PT INR ABG pO2 at Pt Temp ABG HCO3 Sodium Carbon Dioxide Anion Gap BUN Random Glucose Lactic Acid Lactic Acid Fup @ 2Hr 3.6 H* Lactic Acid Fup @ 4Hr 2.7 H* Calcium Total Bilirubin AST ALT Alkaline Phosphatase C-Reactive Protein Total Protein Albumin Microbiology: Microbiology 10/10/20 10:16 Blood - Venous Blood Culture - Final No growth after 5 days. 10/10/20 09:45 Blood - Venous Blood Culture - Final No growth after 5 days. Assessment and Plan (1) Pneumonia: Qualifiers: Pneumonia type: due to unspecified organism Laterality: bilateral Lung location: unspecified part of lung Qualified Code(s): J18.9 - Pneumonia, unspecified organism Status: Acute (2) Pulmonary embolism without acute cor pulmonale: Qualifiers: Pulmonary embolism type: unspecified Chronicity: acute Qualified Code(s): I26.99 - Other pulmonary embolism without acute cor pulmonale Status: Acute (3) ILD (interstitial lung disease): Status: Acute (4) Acute respiratory failure with hypoxia: Status: Acute Continue Lovenox, will need PO anticoagulation for at least 6 months ECHO Bloodwork pending Continue steroids, PO prednisone should be sufficient Strep and legionella urine ag Oxygen to keep pox >90% Procedures Date of Service Date of Service: 10/20/20
--- NOTE | 2020-10-20 11:56 | MHC.CM.PN ---
talked with pt his plan is to [facility] will twan need help with transportaion home
[2020-10-20] MEDS: Mirtazapine 7.5 MG TABLET PO (20:11)
[2020-10-20] MEDS: Buprenorphine/Naloxone 4/1 mg FILM 1 FILM SUBLINGUAL (20:13)
[2020-10-20] MEDS: Albuterol/Iprat 2.5/0.5MG 3 ML AMPUL.NEB INHALE (20:18)
[2020-10-20] MEDS: QUEtiapine Fumarate 50 MG TABLET PO (21:15)
[2020-10-21] VITALS (9 sets, daily range): BP systolic 129–144; BP diastolic 67–90; PULSE 74–94; RESP 18–22; TEMP 36.2–37; O2SAT 93–97
[2020-10-21 04:09] LABS: Glucose, Whole Blood 213 mg/dL (60-115)
[2020-10-21 04:28] LABS: Hematocrit 34.1 % (42-52); Hemoglobin 11.3 g/dl (14.0-18.0); Mean Corpuscular HGB Conc 33.1 g/dl (31.0-36.0); Mean Corpuscular Volume 93.4 fL (80-98); Mean Platelet Volume 10.1 fL (9.4-12.4); NRBC Pct Auto 0.1 /100WBC (0.0-0.2); Platelet Count 252 X10*3/uL (160-400); Red Blood Count 3.65 X10*6/uL (4.60-5.80); Red Cell Distribution Width 20.4 % (11.0-16.0); White Blood Count 28.8 X10*3/uL (4.8-10.8)
[2020-10-21] MEDS: methylPREDNISolone Sod Succ 40 MG/ML VIAL IVPUSH (04:49)
[2020-10-21 05:05] LABS: Anion Gap 11 (12-20); Blood Urea Nitrogen 27 mg/dL (9-16); Calcium 8.3 mg/dL (8.4-10.2); Carbon Dioxide 29 mmol/L (22-29); Chloride 104 mmol/L (96-108); Creatinine Clr Calc Pharmacy 159.3; Estimated Glomerular Filt Rate > 60; Glucose Random 189 mg/dL (60-115); Potassium 4.8 mmol/L (3.3-5.1); Sodium 139 mmol/L (135-145)
--- NOTE | 2020-10-21 07:30 | CA_ITS ---
Transthoracic Echocardiogram Patient (Last, First, Middle): Mirza Jimenez G Gender: Male Date of : 1960 Age: 60 Procedure Date: 10/21/2020 Procedure Type: Transthoracic E[place] [facility] [place]: 185.42 cm Weight: 81.65 kg BSA: 2.06 m2 Heart Rate: bpm BP: 135 / 86 mmHg Nipping Machine Operator: ADI Mendoza MD: Yahir Bonilla MD Symptoms: PE, RV function Study Quality: Fair ECG Rhythm: Sinus Conclusions: - Normal right ventricular cavity size and systolic function. - Mild pulmonary hypertension is present. Findings Left Ventricle Normal left ventricular cavity size. The left ventricular systolic function is normal. The visually estimated ejection fraction is between 55-60%. Right Ventricle Normal right ventricular cavity size and systolic function. Pulmonic Valve The pulmonic valve was not well visualized. Tricuspid Valve Normal tricuspid valve structure. There is mild tricuspid valve regurgitation. The right ventricular systolic pressure is 38 mmHg. Mild pulmonary hypertension is present. Venous The inferior vena cava was not well visualized. The inferior vena cava is normal in size. Prior Study Comparison No significant change compared to prior study dated: 09/21/2020. Measurements 2D Linear Measurements IVSd: 1.06 0.6-0.9/0.6-1.0 cm LVIDd: 4.90 3.9-5.3/4.2-5.9 cm LVIDd Index: 2.38 2.4-3.2/2.2-3.1 cm/m2 LVIDs: 3.46 2.0-3.6 cm LVPWd: 1.04 0.7-1.1 cm LV Mass: 234.37 67-162/88-224 g LV Mass Index: 113.77 43-95/49-115 g/m2 Tricuspid Valve TR Pk Sharif: 2.73 TR Pk Grad: 30.00 RA Press: 8.00 RVSP: 38.00 Updated in Other Vendor System with Status of Final Yamil Connor MD electronically signed on 10/21/2020 11:34:44 AM with status of Final
[2020-10-21] MEDS: Albuterol/Iprat 2.5/0.5MG 3 ML AMPUL.NEB INHALE ×4 (08:06→21:29)
[2020-10-21 08:29] LABS: SARS COV2 IgG Negative (Negative)
[2020-10-21 08:31] LABS: HIV AB/AG Nonreactive (Nonreactive); HIV Num 1 0.05 S/CO (0.00-0.99)
[2020-10-21] MEDS: Enoxaparin Sodium 80 MG/0.8 ML SYRINGE SUBCUT ×2 (09:18→20:03)
[2020-10-21] MEDS: predniSONE 20 MG TABLET 40 MG PO (09:18)
[2020-10-21] MEDS: FLUoxetine HCl 20 MG CAPSULE 40 MG PO (09:18)
[2020-10-21] MEDS: Gabapentin 400 MG CAPSULE PO ×3 (09:18→20:03)
[2020-10-21] MEDS: 0.9 % Sodium Chloride Flush 3 ML SYRINGE IVFLUSH ×3 (09:18→20:04)
[2020-10-21] MEDS: Miconazole 2 % Extra Thick Cr 56.7 Gm Tube 1 APPL TOPICAL ×2 (09:19→21:01)
[2020-10-21] MEDS: LORazepam 0.5 MG TABLET PO ×2 (09:21→21:01)
[2020-10-21] MEDS: TiZANidine HCL 4 MG TABLET PO ×2 (09:21→20:03)
[2020-10-21 10:43] LABS: Estimated Average Glucose 103 mg/dL; Hemoglobin A1c % 5.2 %
--- NOTE | 2020-10-21 11:04 | HO.PM.IMPN ---
Subjective Subjective Date of Service: 10/21/20 Interval History: more alert today, complaininf that he does not want diabetic diet Cardiovascular Cardiovascular: Reports no additional cardiovascular complaints Respiratory Respiratory: Reports no additional respiratory complaints Physical Exam Vital Signs: Vital Signs: Last Vital Signs Temp 98.4 F 10/21/20 07:38 Pulse 74 10/21/20 08:08 Resp 20 10/21/20 07:38 BP 135/86 10/21/20 07:38 Pulse Ox 94 10/21/20 07:38 Body Mass Index 23.8 General: lethargic, ill appearing Resp: Crackles CVS: S1,S2,RRR GI: soft, non tender, non distended Neuro: motor grossly intact Psych: flat affect Objective Data Current Medications Generic Name Dose Route Start Last Admin Trade Name Willyq PRN Reason Stop Dose Admin Albuterol/Ipratropium 3 ml 10/19/20 20:00 10/21/20 08:06 Albuterol/Iprat 2.5/0.5mg 3 Ml Ampul.Neb INHALE 3 ml RQ4H WHILE AWAKE ELISEO Administration Buprenorphine/Naloxone 1 film 10/11/20 09:30 10/21/20 09:18 Buprenorphine/Naloxone 4/1 Mg Film SUBLINGUAL Not Given BID ELISEO Enoxaparin Sodium 80 mg 10/19/20 20:00 10/21/20 09:18 Enoxaparin Sodium 80 Mg/0.8 Ml Syringe SUBCUT 80 mg Q12H ELISEO Administration Fluoxetine HCl 40 mg 10/10/20 18:30 10/21/20 09:18 Fluoxetine Hcl 20 Mg Capsule PO 40 mg DAILY ELISEO Administration Furosemide 20 mg 10/10/20 18:30 10/19/20 09:13 Furosemide 20 Mg Tablet PO 20 mg DAILY ELISEO Administration Protocol Gabapentin 400 mg 10/16/20 10:00 10/21/20 09:18 Gabapentin 400 Mg Capsule PO 400 mg TID ELISEO Administration Miconazole Nitrate 1 appl 10/10/20 21:00 10/21/20 09:19 Miconazole 2 % Extra Thick Cr 56.7 Gm Tube TOPICAL 1 appl BID ELISEO Administration Protocol Mirtazapine 7.5 mg 10/10/20 21:00 10/20/20 20:11 Mirtazapine 7.5 Mg Tablet PO 7.5 mg BEDTIME ELISEO Administration Ondansetron HCl 4 mg 10/19/20 14:44 Ondansetron Hcl 4 Mg/2 Ml Vial IVPUSH Q8H PRN Nausea and Vomiting Prednisone 40 mg 10/21/20 09:00 10/21/20 09:18 Prednisone 20 Mg Tablet PO 40 mg DAILY ELISEO Administration Quetiapine Fumarate 50 mg 10/16/20 09:57 10/20/20 21:15 Quetiapine Fumarate 50 Mg Tablet PO 50 mg DAILY PRN Administration Restlessness Sodium Chloride 3 ml 10/19/20 16:00 10/21/20 09:18 0.9 % Sodium Chloride Flush 3 Ml Syringe IVFLUSH 3 ml QSHIFT ELISEO Administration Tizanidine HCl 4 mg 10/16/20 09:57 10/21/20 09:21 Tizanidine Hcl 4 Mg Tablet PO 4 mg Q8H PRN Administration muscle spasm Labs CBC & Chem 7: 10/21/20 04:15 10/21/20 04:15 Microbiology Microbiology Results: Microbiology 10/19/20 12:54 Blood - Venous Blood Culture - Preliminary No growth after 24 hours. 10/19/20 12:53 Blood - Venous Blood Culture - Preliminary No growth after 24 hours. 10/10/20 10:16 Blood - Venous Blood Culture - Final No growth after 5 days. 10/10/20 09:45 Blood - Venous Blood Culture - Final No growth after 5 days. Assessment and Plan (1) Acute respiratory failure with hypoxia: Status: Acute Assessment and Plan: 60M presented with hypoxia while waiting in ED for placement found to have PE. acute hypoxic respiratory failure due to PE likely element of interstitial lung disease work up in progress continue lovenox 1mg/kg check doppler incase large clot burden DVT present, check limited echo steroids pulm following opoioid dependence suboxone chronic diastolic chf and mild pulmonary htn continue po lasix hcv liver cirrhosis stable, outpatient follow up a1c 5.2 no obvious DM, will change to regular diet
[2020-10-21] MEDS: Mirtazapine 7.5 MG TABLET PO (20:03)
[2020-10-21] MEDS: QUEtiapine Fumarate 50 MG TABLET PO (20:03)
[2020-10-21] MEDS: Buprenorphine/Naloxone 4/1 mg FILM 1 FILM SUBLINGUAL (20:04)
[2020-10-22] VITALS (8 sets, daily range): BP systolic 124–142; BP diastolic 66–80; PULSE 87–97; RESP 18–22; TEMP 35.9–37.1; O2SAT 90–98; BMI 23.9
[2020-10-22 06:14] LABS: Hematocrit 34.8 % (42-52); Hemoglobin 11.3 g/dl (14.0-18.0); Mean Corpuscular HGB Conc 32.5 g/dl (31.0-36.0); Mean Corpuscular Hemoglobin 30.5 pg (27.0-33.0); Mean Corpuscular Volume 94.1 fL (80-98); Mean Platelet Volume 10.6 fL (9.4-12.4); NRBC Pct Auto 0.3 /100WBC (0.0-0.2); Platelet Count 263 X10*3/uL (160-400); Red Cell Distribution Width 20.7 % (11.0-16.0); White Blood Count 24.6 X10*3/uL (4.8-10.8)
[2020-10-22 06:58] LABS: Anion Gap 14 (12-20); Blood Urea Nitrogen 26 mg/dL (9-16); Calcium 8.3 mg/dL (8.4-10.2); Carbon Dioxide 27 mmol/L (22-29); Chloride 104 mmol/L (96-108); Creatinine Clr Calc Pharmacy 146.1; Estimated Glomerular Filt Rate > 60; Glucose Fasting 161 mg/dL (60-99); Potassium 4.8 mmol/L (3.3-5.1); Sodium 140 mmol/L (135-145)
[2020-10-22] MEDS: Albuterol/Iprat 2.5/0.5MG 3 ML AMPUL.NEB INHALE ×3 (08:19→20:12)
[2020-10-22] MEDS: FLUoxetine HCl 20 MG CAPSULE 40 MG PO (09:40)
[2020-10-22] MEDS: Apixaban 5 MG TABLET 10 MG PO ×2 (09:40→21:48)
[2020-10-22] MEDS: Gabapentin 400 MG CAPSULE PO ×3 (09:40→21:48)
[2020-10-22] MEDS: predniSONE 20 MG TABLET 40 MG PO (09:40)
[2020-10-22] MEDS: TiZANidine HCL 4 MG TABLET PO ×2 (09:42→21:48)
[2020-10-22] MEDS: 0.9 % Sodium Chloride Flush 3 ML SYRINGE IVFLUSH ×3 (09:43→23:55)
[2020-10-22] MEDS: Miconazole 2 % Extra Thick Cr 56.7 Gm Tube 1 APPL TOPICAL ×2 (09:44→21:49)
[2020-10-22] MEDS: LORazepam 0.5 MG TABLET PO (11:02)
--- NOTE | 2020-10-22 12:07 | HO.PM.IMPN ---
Subjective Subjective Date of Service: 10/22/20 Interval History: anxious Respiratory Respiratory: Reports no additional respiratory complaints Gastrointestinal Gastrointestinal: Reports no additional gastrointestinal complaints Physical Exam Vital Signs: Vital Signs: Last Vital Signs Temp 98.2 F 10/22/20 10:52 Pulse 96 10/22/20 10:52 Resp 21 H 10/22/20 10:52 BP 132/76 10/22/20 10:52 Pulse Ox 98 10/22/20 10:52 Body Mass Index 23.8 General: AO X 3, no acute distress Resp: diminished CVS: S1,S2,RRR GI: soft, non tender, non distended Neuro: motor grossly intact Psych: appropriate affect Objective Data Current Medications Generic Name Dose Route Start Last Admin Trade Name Freq PRN Reason Stop Dose Admin Albuterol/Ipratropium 3 ml 10/19/20 20:00 10/22/20 08:19 Albuterol/Iprat 2.5/0.5mg 3 Ml Ampul.Neb INHALE 3 ml RQ4H WHILE AWAKE ELISEO Administration Apixaban 10 mg 10/22/20 09:00 10/22/20 09:40 Apixaban 5 Mg Tablet PO 10 mg BID ELISEO Administration Buprenorphine/Naloxone 1 film 10/11/20 09:30 10/22/20 09:44 Buprenorphine/Naloxone 4/1 Mg Film SUBLINGUAL Not Given BID ELISEO Fluoxetine HCl 40 mg 10/10/20 18:30 10/22/20 09:40 Fluoxetine Hcl 20 Mg Capsule PO 40 mg DAILY ELISEO Administration Furosemide 20 mg 10/10/20 18:30 10/19/20 09:13 Furosemide 20 Mg Tablet PO 20 mg DAILY ELISEO Administration Protocol Gabapentin 400 mg 10/16/20 10:00 10/22/20 09:40 Gabapentin 400 Mg Capsule PO 400 mg TID ELISEO Administration Miconazole Nitrate 1 appl 10/10/20 21:00 10/22/20 09:44 Miconazole 2 % Extra Thick Cr 56.7 Gm Tube TOPICAL 1 appl BID ELISEO Administration Protocol Mirtazapine 7.5 mg 10/10/20 21:00 10/21/20 20:03 Mirtazapine 7.5 Mg Tablet PO 7.5 mg BEDTIME ELISEO Administration Ondansetron HCl 4 mg 10/19/20 14:44 Ondansetron Hcl 4 Mg/2 Ml Vial IVPUSH Q8H PRN Nausea and Vomiting Prednisone 40 mg 10/21/20 09:00 10/22/20 09:40 Prednisone 20 Mg Tablet PO 40 mg DAILY ELISEO Administration Quetiapine Fumarate 50 mg 10/16/20 09:57 10/21/20 20:03 Quetiapine Fumarate 50 Mg Tablet PO 50 mg DAILY PRN Administration Restlessness Sodium Chloride 3 ml 10/19/20 16:00 10/22/20 09:43 0.9 % Sodium Chloride Flush 3 Ml Syringe IVFLUSH 3 ml QSHIFT ELISEO Administration Tizanidine HCl 4 mg 10/16/20 09:57 10/22/20 09:42 Tizanidine Hcl 4 Mg Tablet PO 4 mg Q8H PRN Administration muscle spasm Labs CBC & Chem 7: 10/22/20 04:52 10/22/20 04:52 Microbiology Microbiology Results: Microbiology 10/19/20 12:54 Blood - Venous Blood Culture - Preliminary No growth after 48 hours. 10/19/20 12:53 Blood - Venous Blood Culture - Preliminary No growth after 48 hours. 10/10/20 10:16 Blood - Venous Blood Culture - Final No growth after 5 days. 10/10/20 09:45 Blood - Venous Blood Culture - Final No growth after 5 days. Assessment and Plan (1) Acute respiratory failure with hypoxia: Status: Acute Assessment and Plan: 60M presented with hypoxia while waiting in ED for placement found to have PE. acute hypoxic respiratory failure due to PE likely element of interstitial lung disease work up in progress change to eliquis 10mg bid until october 28, 2020 then decrease to 5mg bid duplex negative for dvt, echo with no RV strain continue prednisone opoioid dependence suboxone chronic diastolic chf and mild pulmonary htn continue po lasix hcv liver cirrhosis stable, outpatient follow up a1c 5.2 no obvious DM, will change to regular diet medically cleared will get bhn/care team eval for reported severe depression and anxiety, pateint requesting inpatient psychiatry admission
[2020-10-22 12:51] LABS: Cyclic Citrullinated Peptide <16 UNITS
--- NOTE | 2020-10-22 15:25 | MHC.CARE ---
CARE team consult received for pt, who was also referred to [facility] crisis for an evaluation. CARE team followed up with [facility] re: availability for a clinician to evaluate pt, which there will be no anticipated availability until later this evening. CARE team has taken over the behavioral health intervention at this time. This flex o writer operator attempted to meet with pt, who was sleeping at the time of arrival. Pt awakened with ease and was displeased with being woken up, as he had just fallen asleep. Pt agreeable to this flex o writer operator returning later to meet with him, which was relayed to the floor RN that CARE team will return to meet with pt around dinner time. Pt also requested chocolate ice cream.
[2020-10-22 20:06] LABS: Immunoglobulin E 34 kU/L (<OR=114)
[2020-10-22] MEDS: Mirtazapine 7.5 MG TABLET PO (21:48)
[2020-10-22] MEDS: QUEtiapine Fumarate 50 MG TABLET PO (21:49)
[2020-10-22] MEDS: Buprenorphine/Naloxone 4/1 mg FILM 1 FILM SUBLINGUAL (21:49)
[2020-10-23] VITALS (9 sets, daily range): BP systolic 106–166; BP diastolic 61–87; PULSE 65–93; RESP 18–20; TEMP 36.3–37.2; O2SAT 93–97
[2020-10-23] MEDS: Albuterol/Iprat 2.5/0.5MG 3 ML AMPUL.NEB INHALE ×3 (07:55→20:31)
[2020-10-23] MEDS: predniSONE 20 MG TABLET 40 MG PO (08:02)
[2020-10-23] MEDS: Apixaban 5 MG TABLET 10 MG PO ×2 (08:02→20:20)
[2020-10-23] MEDS: FLUoxetine HCl 20 MG CAPSULE 40 MG PO (08:02)
[2020-10-23] MEDS: Gabapentin 400 MG CAPSULE PO ×3 (08:02→20:19)
[2020-10-23] MEDS: 0.9 % Sodium Chloride Flush 3 ML SYRINGE IVFLUSH ×2 (08:03→20:21)
[2020-10-23] MEDS: TiZANidine HCL 4 MG TABLET PO ×2 (08:05→20:19)
--- NOTE | 2020-10-23 15:46 | HO.PM.IMPN ---
Subjective Subjective Date of Service: 10/23/20 Interval History: sob Cardiovascular Cardiovascular: Reports no additional cardiovascular complaints Genitourinary Genitourinary: Reports no additional male genitourinary complaints Physical Exam Vital Signs: Vital Signs: Last Vital Signs Temp 99.0 F 10/23/20 15:33 Pulse 86 10/23/20 15:33 Resp 18 10/23/20 15:33 BP 166/61 H 10/23/20 15:33 Pulse Ox 95 10/23/20 15:33 Body Mass Index 23.9 General: AO X 3, ill appearing Resp: diminished, crackles CVS: S1,S2,RRR GI: soft, non tender, non distended Neuro: motor grossly intact Psych: appropriate affect Objective Data Current Medications Generic Name Dose Route Start Last Admin Trade Name Freq PRN Reason Stop Dose Admin Albuterol/Ipratropium 3 ml 10/19/20 20:00 10/23/20 11:23 Albuterol/Iprat 2.5/0.5mg 3 Ml Ampul.Neb INHALE 3 ml RQ4H WHILE AWAKE ELISEO Administration Apixaban 10 mg 10/22/20 09:00 10/23/20 08:02 Apixaban 5 Mg Tablet PO 10 mg BID ELISEO Administration Buprenorphine/Naloxone 1 film 10/11/20 09:30 10/23/20 08:02 Buprenorphine/Naloxone 4/1 Mg Film SUBLINGUAL Not Given BID ELISEO Fluoxetine HCl 40 mg 10/10/20 18:30 10/23/20 08:02 Fluoxetine Hcl 20 Mg Capsule PO 40 mg DAILY ELISEO Administration Furosemide 20 mg 10/10/20 18:30 10/19/20 09:13 Furosemide 20 Mg Tablet PO 20 mg DAILY ELISEO Administration Protocol Gabapentin 400 mg 10/16/20 10:00 10/23/20 14:01 Gabapentin 400 Mg Capsule PO 400 mg TID ELISEO Administration Miconazole Nitrate 1 appl 10/10/20 21:00 10/23/20 08:07 Miconazole 2 % Extra Thick Cr 56.7 Gm Tube TOPICAL Not Given BID ELISEO Protocol Mirtazapine 7.5 mg 10/10/20 21:00 10/22/20 21:48 Mirtazapine 7.5 Mg Tablet PO 7.5 mg BEDTIME ELISEO Administration Ondansetron HCl 4 mg 10/19/20 14:44 Ondansetron Hcl 4 Mg/2 Ml Vial IVPUSH Q8H PRN Nausea and Vomiting Prednisone 40 mg 10/21/20 09:00 10/23/20 08:02 Prednisone 20 Mg Tablet PO 40 mg DAILY ELISEO Administration Quetiapine Fumarate 50 mg 10/16/20 09:57 10/22/20 21:49 Quetiapine Fumarate 50 Mg Tablet PO 50 mg DAILY PRN Administration Restlessness Sodium Chloride 3 ml 10/19/20 16:00 10/23/20 08:03 0.9 % Sodium Chloride Flush 3 Ml Syringe IVFLUSH 3 ml QSHIFT ELISEO Administration Tizanidine HCl 4 mg 10/16/20 09:57 10/23/20 08:05 Tizanidine Hcl 4 Mg Tablet PO 4 mg Q8H PRN Administration muscle spasm Labs CBC & Chem 7: 10/22/20 04:52 10/22/20 04:52 Microbiology Microbiology Results: Microbiology 10/19/20 12:54 Blood - Venous Blood Culture - Preliminary No growth after 48 hours. 10/19/20 12:53 Blood - Venous Blood Culture - Preliminary No growth after 48 hours. 10/10/20 10:16 Blood - Venous Blood Culture - Final No growth after 5 days. 10/10/20 09:45 Blood - Venous Blood Culture - Final No growth after 5 days. Assessment and Plan (1) Acute respiratory failure with hypoxia: Status: Acute Assessment and Plan: 60M presented with hypoxia while waiting in ED for placement found to have PE. acute hypoxic respiratory failure due to PE likely element of interstitial lung disease work up in progress change to eliquis 10mg bid until october 28, 2020 then decrease to 5mg bid duplex negative for dvt, echo with no RV strain continue prednisone hypoxia worsened yesterday, transfer to psychiatry postponed for now, will need inpatient psychiatry on discharge opoioid dependence suboxone chronic diastolic chf and mild pulmonary htn continue po lasix hcv liver cirrhosis stable, outpatient follow up a1c 5.2 no obvious DM, will change to regular diet
[2020-10-23] MEDS: Buprenorphine/Naloxone 4/1 mg FILM 1 FILM SUBLINGUAL (20:19)
[2020-10-23] MEDS: Mirtazapine 7.5 MG TABLET PO (20:20)
[2020-10-23] MEDS: Miconazole 2 % Extra Thick Cr 56.7 Gm Tube 1 APPL TOPICAL (20:21)
[2020-10-23] MEDS: QUEtiapine Fumarate 50 MG TABLET PO (20:21)
[2020-10-24] VITALS (11 sets, daily range): BP systolic 121–170; BP diastolic 68–94; PULSE 73–110; RESP 18–20; TEMP 36.1–37; O2SAT 88–97
[2020-10-24 07:50] LABS: Hematocrit 34.8 % (42-52); Hemoglobin 11.3 g/dl (14.0-18.0); Mean Corpuscular HGB Conc 32.5 g/dl (31.0-36.0); Mean Corpuscular Hemoglobin 30.4 pg (27.0-33.0); Mean Corpuscular Volume 93.5 fL (80-98); Mean Platelet Volume 10.3 fL (9.4-12.4); NRBC Pct Auto 0.2 /100WBC (0.0-0.2); Platelet Count 268 X10*3/uL (160-400); Red Blood Count 3.72 X10*6/uL (4.60-5.80); Red Cell Distribution Width 20.3 % (11.0-16.0); White Blood Count 20.7 X10*3/uL (4.8-10.8)
[2020-10-24] MEDS: Albuterol/Iprat 2.5/0.5MG 3 ML AMPUL.NEB INHALE ×4 (07:58→19:40)
[2020-10-24] MEDS: Apixaban 5 MG TABLET 10 MG PO ×2 (08:37→20:05)
[2020-10-24] MEDS: TiZANidine HCL 4 MG TABLET PO ×2 (08:37→20:06)
[2020-10-24] MEDS: FLUoxetine HCl 20 MG CAPSULE 40 MG PO (08:37)
[2020-10-24] MEDS: predniSONE 20 MG TABLET 40 MG PO (08:37)
[2020-10-24] MEDS: Gabapentin 400 MG CAPSULE PO ×3 (08:37→20:06)
[2020-10-24] MEDS: Miconazole 2 % Extra Thick Cr 56.7 Gm Tube 1 APPL TOPICAL ×2 (08:38→20:07)
[2020-10-24] MEDS: 0.9 % Sodium Chloride Flush 3 ML SYRINGE IVFLUSH ×3 (08:43→20:07)
--- NOTE | 2020-10-24 09:13 | HO.PM.IMPN ---
Subjective Subjective Date of Service: 10/24/20 Interval History: anxious Cardiovascular Cardiovascular: Reports no additional cardiovascular complaints Gastrointestinal Gastrointestinal: Reports no additional gastrointestinal complaints Physical Exam Vital Signs: Vital Signs: Last Vital Signs Temp 98.5 F 10/24/20 07:38 Pulse 73 10/24/20 08:02 Resp 18 10/24/20 07:38 BP 170/86 H 10/24/20 07:38 Pulse Ox 96 10/24/20 07:38 Body Mass Index 23.9 General: AO X 3, ill appearing Resp: diminished, crackles CVS: S1,S2,RRR GI: soft, non tender, non distended Neuro: motor grossly intact Psych: appropriate affect Objective Data Current Medications Generic Name Dose Route Start Last Admin Trade Name Freq PRN Reason Stop Dose Admin Albuterol/Ipratropium 3 ml 10/19/20 20:00 10/24/20 07:58 Albuterol/Iprat 2.5/0.5mg 3 Ml Ampul.Neb INHALE 3 ml RQ4H WHILE AWAKE ELISEO Administration Apixaban 10 mg 10/22/20 09:00 10/24/20 08:37 Apixaban 5 Mg Tablet PO 10 mg BID ELISEO Administration Buprenorphine/Naloxone 1 film 10/11/20 09:30 10/24/20 08:38 Buprenorphine/Naloxone 4/1 Mg Film SUBLINGUAL Not Given BID ELISEO Fluoxetine HCl 40 mg 10/10/20 18:30 10/24/20 08:37 Fluoxetine Hcl 20 Mg Capsule PO 40 mg DAILY ELISEO Administration Furosemide 20 mg 10/10/20 18:30 10/19/20 09:13 Furosemide 20 Mg Tablet PO 20 mg DAILY ELISEO Administration Protocol Gabapentin 400 mg 10/16/20 10:00 10/24/20 08:37 Gabapentin 400 Mg Capsule PO 400 mg TID ELISEO Administration Lorazepam 0.5 mg 10/24/20 09:11 Lorazepam 0.5 Mg Tablet PO Q8H PRN anxiety Miconazole Nitrate 1 appl 10/10/20 21:00 10/24/20 08:38 Miconazole 2 % Extra Thick Cr 56.7 Gm Tube TOPICAL 1 appl BID ELISEO Administration Protocol Mirtazapine 7.5 mg 10/10/20 21:00 10/23/20 20:20 Mirtazapine 7.5 Mg Tablet PO 7.5 mg BEDTIME ELISEO Administration Ondansetron HCl 4 mg 10/19/20 14:44 Ondansetron Hcl 4 Mg/2 Ml Vial IVPUSH Q8H PRN Nausea and Vomiting Prednisone 40 mg 10/21/20 09:00 10/24/20 08:37 Prednisone 20 Mg Tablet PO 40 mg DAILY ELISEO Administration Quetiapine Fumarate 50 mg 10/16/20 09:57 10/23/20 20:21 Quetiapine Fumarate 50 Mg Tablet PO 50 mg DAILY PRN Administration Restlessness Sodium Chloride 3 ml 10/19/20 16:00 10/24/20 08:43 0.9 % Sodium Chloride Flush 3 Ml Syringe IVFLUSH 3 ml QSHIFT ELISEO Administration Tizanidine HCl 4 mg 10/16/20 09:57 10/24/20 08:37 Tizanidine Hcl 4 Mg Tablet PO 4 mg Q8H PRN Administration muscle spasm Labs CBC & Chem 7: 10/24/20 07:18 10/22/20 04:52 Microbiology Microbiology Results: Microbiology 10/19/20 12:54 Blood - Venous Blood Culture - Preliminary No growth after 48 hours. 10/19/20 12:53 Blood - Venous Blood Culture - Preliminary No growth after 48 hours. 10/10/20 10:16 Blood - Venous Blood Culture - Final No growth after 5 days. 10/10/20 09:45 Blood - Venous Blood Culture - Final No growth after 5 days. Assessment and Plan (1) Acute respiratory failure with hypoxia: Status: Acute Assessment and Plan: 60M presented with hypoxia while waiting in ED for placement found to have PE. acute hypoxic respiratory failure due to PE likely element of interstitial lung disease work up in progress change to eliquis 10mg bid until october 28, 2020 then decrease to 5mg bid duplex negative for dvt, echo with no RV strain continue prednisone hypoxia worsened last couple days, transfer to psychiatry postponed for now, will need inpatient psychiatry on discharge pulmonary follow up opoioid dependence suboxone chronic diastolic chf and mild pulmonary htn continue po lasix hcv liver cirrhosis stable, outpatient follow up a1c 5.2 no obvious DM, will change to regular diet
[2020-10-24 09:23] LABS: Anion Gap 10 (12-20); Blood Urea Nitrogen 25 mg/dL (9-16); Calcium 8.5 mg/dL (8.4-10.2); Carbon Dioxide 29 mmol/L (22-29); Chloride 106 mmol/L (96-108); Creatinine Clr Calc Pharmacy 159.3; Estimated Glomerular Filt Rate > 60; Glucose Fasting 122 mg/dL (60-99); Potassium 4.6 mmol/L (3.3-5.1); Sodium 140 mmol/L (135-145)
[2020-10-24] MEDS: LORazepam 0.5 MG TABLET PO ×2 (09:39→20:06)
[2020-10-24 15:27] LABS: Anti Nuclear Antibody Screen NEGATIVE (NEGATIVE)
[2020-10-24] MEDS: Mirtazapine 7.5 MG TABLET PO (20:05)
[2020-10-24] MEDS: QUEtiapine Fumarate 50 MG TABLET PO (20:05)
[2020-10-24] MEDS: Buprenorphine/Naloxone 4/1 mg FILM 1 FILM SUBLINGUAL (20:06)
[2020-10-25] VITALS (9 sets, daily range): BP systolic 112–162; BP diastolic 76–93; PULSE 87–100; RESP 16–22; TEMP 36.1–37; O2SAT 94–98; BMI 31.8
[2020-10-25] MEDS: Albuterol/Iprat 2.5/0.5MG 3 ML AMPUL.NEB INHALE ×4 (08:34→19:57)
[2020-10-25] MEDS: FLUoxetine HCl 20 MG CAPSULE 40 MG PO (09:58)
[2020-10-25] MEDS: predniSONE 20 MG TABLET 40 MG PO (09:58)
[2020-10-25] MEDS: Apixaban 5 MG TABLET 10 MG PO ×2 (09:59→21:06)
[2020-10-25] MEDS: Gabapentin 400 MG CAPSULE PO ×3 (10:00→21:06)
[2020-10-25] MEDS: 0.9 % Sodium Chloride Flush 3 ML SYRINGE IVFLUSH ×3 (10:02→21:11)
[2020-10-25] MEDS: Furosemide 40 MG/4 ML VIAL IVPUSH ×2 (10:02→18:43)
[2020-10-25] MEDS: TiZANidine HCL 4 MG TABLET PO ×2 (10:07→21:09)
[2020-10-25] MEDS: LORazepam 0.5 MG TABLET PO ×2 (10:07→21:08)
--- NOTE | 2020-10-25 10:59 | HO.PM.IMPN ---
Subjective Subjective Date of Service: 10/25/20 Interval History: difficulty weaning off o2, still sob Cardiovascular Cardiovascular: Reports no additional cardiovascular complaints Gastrointestinal Gastrointestinal: Reports no additional gastrointestinal complaints Physical Exam Vital Signs: Vital Signs: Last Vital Signs Temp 98.4 F 10/25/20 07:03 Pulse 89 10/25/20 08:38 Resp 22 H 10/25/20 07:03 BP 129/82 10/25/20 07:03 Pulse Ox 96 10/25/20 07:03 Body Mass Index 23.9 General: AO X 3, ill appearing Resp: diminished, crackles CVS: S1,S2,RRR GI: soft, non tender, non distended Neuro: motor grossly intact Psych: appropriate affect Objective Data Current Medications Generic Name Dose Route Start Last Admin Trade Name Freq PRN Reason Stop Dose Admin Albuterol/Ipratropium 3 ml 10/19/20 20:00 10/25/20 08:34 Albuterol/Iprat 2.5/0.5mg 3 Ml Ampul.Neb INHALE 3 ml RQ4H WHILE AWAKE ELISEO Administration Apixaban 10 mg 10/22/20 09:00 10/25/20 09:59 Apixaban 5 Mg Tablet PO 10 mg BID ELISEO Administration Buprenorphine/Naloxone 1 film 10/11/20 09:30 10/25/20 10:04 Buprenorphine/Naloxone 4/1 Mg Film SUBLINGUAL Not Given BID ELISEO Fluoxetine HCl 40 mg 10/10/20 18:30 10/25/20 09:58 Fluoxetine Hcl 20 Mg Capsule PO 40 mg DAILY ELISEO Administration Furosemide 40 mg 10/25/20 09:00 10/25/20 10:02 Furosemide 40 Mg/4 Ml Vial IVPUSH 40 mg BID@0900,1800 ELISEO Administration Protocol Gabapentin 400 mg 10/16/20 10:00 10/25/20 10:00 Gabapentin 400 Mg Capsule PO 400 mg TID ELISEO Administration Lorazepam 0.5 mg 10/24/20 09:11 10/25/20 10:07 Lorazepam 0.5 Mg Tablet PO 0.5 mg Q8H PRN Administration anxiety Miconazole Nitrate 1 appl 10/10/20 21:00 10/24/20 20:07 Miconazole 2 % Extra Thick Cr 56.7 Gm Tube TOPICAL 1 appl BID ELISEO Administration Protocol Mirtazapine 7.5 mg 10/10/20 21:00 10/24/20 20:05 Mirtazapine 7.5 Mg Tablet PO 7.5 mg BEDTIME ELISEO Administration Ondansetron HCl 4 mg 10/19/20 14:44 Ondansetron Hcl 4 Mg/2 Ml Vial IVPUSH Q8H PRN Nausea and Vomiting Prednisone 40 mg 10/21/20 09:00 10/25/20 09:58 Prednisone 20 Mg Tablet PO 40 mg DAILY ELISEO Administration Quetiapine Fumarate 50 mg 10/16/20 09:57 10/24/20 20:05 Quetiapine Fumarate 50 Mg Tablet PO 50 mg DAILY PRN Administration Restlessness Sodium Chloride 3 ml 10/19/20 16:00 10/25/20 10:02 0.9 % Sodium Chloride Flush 3 Ml Syringe IVFLUSH 3 ml QSHIFT ELISEO Administration Tizanidine HCl 4 mg 10/16/20 09:57 10/25/20 10:07 Tizanidine Hcl 4 Mg Tablet PO 4 mg Q8H PRN Administration muscle spasm Labs CBC & Chem 7: 10/24/20 07:18 10/24/20 07:18 Microbiology Microbiology Results: Microbiology 10/19/20 12:54 Blood - Venous Blood Culture - Final No growth after 5 days. 10/19/20 12:53 Blood - Venous Blood Culture - Final No growth after 5 days. 10/10/20 10:16 Blood - Venous Blood Culture - Final No growth after 5 days. 10/10/20 09:45 Blood - Venous Blood Culture - Final No growth after 5 days. Assessment and Plan (1) Acute respiratory failure with hypoxia: Status: Acute Assessment and Plan: 60M presented with hypoxia while waiting in ED for placement found to have PE. acute hypoxic respiratory failure due to PE likely element of interstitial lung disease work up in progress changed to eliquis 10mg bid until october 28, 2020 then decrease to 5mg bid duplex negative for dvt, echo with no RV strain continue prednisone hypoxia worsened last couple days, transfer to psychiatry postponed for now, will need inpatient psychiatry on discharge may be element of acute on chronic diastolic chf will diurese with iv lasix, monitor bmp opoioid dependence suboxone hcv liver cirrhosis stable, outpatient follow up a1c 5.2 no obvious DM, changed regular diet
--- NOTE | 2020-10-25 13:08 | MHC.CARE ---
CARE Team spoke with Dr. Bonilla, who identifies that pt is not medically cleared today. Pt was assessed by CARE Team last Sunday, but will need to be re-referred to N/CARE Team once medically cleared for new assessment due to the length of time that has elapsed.
[2020-10-25] MEDS: Miconazole 2 % Extra Thick Cr 56.7 Gm Tube 1 APPL TOPICAL (15:36)
[2020-10-25] MEDS: Mirtazapine 7.5 MG TABLET PO (21:06)
[2020-10-25] MEDS: Buprenorphine/Naloxone 4/1 mg FILM 1 FILM SUBLINGUAL (21:07)
[2020-10-26] VITALS (9 sets, daily range): BP systolic 117–158; BP diastolic 77–94; PULSE 78–103; RESP 18–20; TEMP 36.1–37; O2SAT 94–99
[2020-10-26 06:22] LABS: Hematocrit 34.7 % (42-52); Hemoglobin 11.1 g/dl (14.0-18.0); Mean Corpuscular Hemoglobin 30.4 pg (27.0-33.0); Mean Corpuscular Volume 95.1 fL (80-98); Mean Platelet Volume 10.5 fL (9.4-12.4); NRBC Pct Auto 0.1 /100WBC (0.0-0.2); Platelet Count 311 X10*3/uL (160-400); Red Blood Count 3.65 X10*6/uL (4.60-5.80); White Blood Count 22.9 X10*3/uL (4.8-10.8)
[2020-10-26 06:35] LABS: Anion Gap 9 (12-20); Blood Urea Nitrogen 29 mg/dL (9-16); Calcium 8.6 mg/dL (8.4-10.2); Carbon Dioxide 34 mmol/L (22-29); Chloride 105 mmol/L (96-108); Estimated Glomerular Filt Rate > 60; Glucose Fasting 82 mg/dL (60-99); Potassium 4.1 mmol/L (3.3-5.1); Sodium 144 mmol/L (135-145)
[2020-10-26 06:45] LABS: B Type Natriuretic Peptide 24 pg/mL (<100)
--- NOTE | 2020-10-26 08:49 | MHC.CM.PN ---
at this time dc plan is for patient to return to [facility] STR. cm to cont to follow.
[2020-10-26] MEDS: FLUoxetine HCl 20 MG CAPSULE 40 MG PO (09:57)
[2020-10-26] MEDS: Gabapentin 400 MG CAPSULE PO ×3 (09:57→20:57)
[2020-10-26] MEDS: Apixaban 5 MG TABLET 10 MG PO ×2 (09:57→20:58)
[2020-10-26] MEDS: predniSONE 20 MG TABLET 40 MG PO (09:57)
[2020-10-26] MEDS: Furosemide 40 MG/4 ML VIAL IVPUSH (09:57)
[2020-10-26] MEDS: 0.9 % Sodium Chloride Flush 3 ML SYRINGE IVFLUSH ×3 (09:58→21:00)
--- NOTE | 2020-10-26 09:59 | HO.PM.IMPN ---
Subjective Subjective Date of Service: 10/26/20 Interval History: still sob, a bit worse than yesterday Cardiovascular Cardiovascular: Reports no additional cardiovascular complaints Gastrointestinal Gastrointestinal: Reports no additional gastrointestinal complaints Physical Exam Vital Signs: Vital Signs: Last Vital Signs Temp 98 F 10/26/20 06:57 Pulse 78 10/26/20 06:57 Resp 20 10/26/20 06:57 BP 117/77 10/26/20 06:57 Pulse Ox 97 10/26/20 06:57 Body Mass Index 31.8 General: AO X 3, ill appearing Resp: diminished, crackles CVS: S1,S2,RRR GI: soft, non tender, non distended Neuro: motor grossly intact Psych: appropriate affect Objective Data Current Medications Generic Name Dose Route Start Last Admin Trade Name Freq PRN Reason Stop Dose Admin Albuterol/Ipratropium 3 ml 10/19/20 20:00 10/26/20 07:47 Albuterol/Iprat 2.5/0.5mg 3 Ml Ampul.Neb INHALE Not Given RQ4H WHILE AWAKE ELISEO Apixaban 10 mg 10/22/20 09:00 10/25/20 21:06 Apixaban 5 Mg Tablet PO 10 mg BID ELISEO Administration Buprenorphine/Naloxone 1 film 10/11/20 09:30 10/25/20 21:07 Buprenorphine/Naloxone 4/1 Mg Film SUBLINGUAL 1 film BID ELISEO Administration Fluoxetine HCl 40 mg 10/10/20 18:30 10/25/20 09:58 Fluoxetine Hcl 20 Mg Capsule PO 40 mg DAILY ELISEO Administration Gabapentin 400 mg 10/16/20 10:00 10/25/20 21:06 Gabapentin 400 Mg Capsule PO 400 mg TID ELISEO Administration Lorazepam 0.5 mg 10/24/20 09:11 10/25/20 21:08 Lorazepam 0.5 Mg Tablet PO 0.5 mg Q8H PRN Administration anxiety Miconazole Nitrate 1 appl 10/10/20 21:00 10/25/20 22:06 Miconazole 2 % Extra Thick Cr 56.7 Gm Tube TOPICAL Not Given BID ELISEO Protocol Mirtazapine 7.5 mg 10/10/20 21:00 10/25/20 21:06 Mirtazapine 7.5 Mg Tablet PO 7.5 mg BEDTIME ELISEO Administration Ondansetron HCl 4 mg 10/19/20 14:44 Ondansetron Hcl 4 Mg/2 Ml Vial IVPUSH Q8H PRN Nausea and Vomiting Prednisone 40 mg 10/21/20 09:00 10/25/20 09:58 Prednisone 20 Mg Tablet PO 40 mg DAILY ELISEO Administration Quetiapine Fumarate 50 mg 10/16/20 09:57 10/24/20 20:05 Quetiapine Fumarate 50 Mg Tablet PO 50 mg DAILY PRN Administration Restlessness Sodium Chloride 3 ml 10/19/20 16:00 10/25/20 21:11 0.9 % Sodium Chloride Flush 3 Ml Syringe IVFLUSH 3 ml QSHIFT ELISEO Administration Tizanidine HCl 4 mg 10/16/20 09:57 10/25/20 21:09 Tizanidine Hcl 4 Mg Tablet PO 4 mg Q8H PRN Administration muscle spasm Labs CBC & Chem 7: 10/26/20 05:12 10/26/20 05:12 Microbiology Microbiology Results: Microbiology 10/19/20 12:54 Blood - Venous Blood Culture - Final No growth after 5 days. 10/19/20 12:53 Blood - Venous Blood Culture - Final No growth after 5 days. 10/10/20 10:16 Blood - Venous Blood Culture - Final No growth after 5 days. 10/10/20 09:45 Blood - Venous Blood Culture - Final No growth after 5 days. Assessment and Plan (1) Acute respiratory failure with hypoxia: Status: Acute Assessment and Plan: 60M presented with hypoxia while waiting in ED for placement found to have PE. acute hypoxic respiratory failure due to PE likely element of interstitial lung disease work up in progress, so far negative eliquis 10mg bid until october 28, 2020 then decrease to 5mg bid duplex negative for dvt, echo with no RV strain continue prednisone hypoxia worsened last couple days, transfer to psychiatry postponed, will likely need inpatient psychiatry on discharge empirically diuresed, however, given, low bnp, and increasing bicarb likely not fluid overloaded opoioid dependence suboxone hcv liver cirrhosis stable, outpatient follow up a1c 5.2 no obvious DM, changed regular diet
[2020-10-26] MEDS: TiZANidine HCL 4 MG TABLET PO ×2 (10:02→20:58)
[2020-10-26] MEDS: LORazepam 0.5 MG TABLET PO ×2 (10:02→20:58)
[2020-10-26] MEDS: Miconazole 2 % Extra Thick Cr 56.7 Gm Tube 1 APPL TOPICAL (10:04)
[2020-10-26] MEDS: Albuterol/Iprat 2.5/0.5MG 3 ML AMPUL.NEB INHALE ×3 (10:51→19:24)
[2020-10-26] MEDS: Mirtazapine 7.5 MG TABLET PO (20:58)
[2020-10-26] MEDS: Buprenorphine/Naloxone 4/1 mg FILM 1 FILM SUBLINGUAL (20:58)
[2020-10-26] MEDS: QUEtiapine Fumarate 50 MG TABLET PO (21:00)
[2020-10-27 03:50] VITALS: BP 130/85; PULSE 83; RESP 18; TEMP 36.8; O2SAT 97
[2020-10-27 07:53] VITALS: BP 140/77; PULSE 83; RESP 19; TEMP 36.3; O2SAT 91
[2020-10-27] MEDS: TiZANidine HCL 4 MG TABLET PO ×2 (09:38→20:58)
[2020-10-27] MEDS: FLUoxetine HCl 20 MG CAPSULE 40 MG PO (09:38)
[2020-10-27] MEDS: predniSONE 20 MG TABLET 40 MG PO (09:38)
[2020-10-27] MEDS: Apixaban 5 MG TABLET 10 MG PO ×2 (09:38→20:56)
[2020-10-27] MEDS: Gabapentin 400 MG CAPSULE PO ×3 (09:39→20:56)
[2020-10-27] MEDS: LORazepam 0.5 MG TABLET PO ×2 (09:39→20:58)
[2020-10-27] MEDS: 0.9 % Sodium Chloride Flush 3 ML SYRINGE IVFLUSH ×2 (09:39→15:01)
[2020-10-27] MEDS: Miconazole 2 % Extra Thick Cr 56.7 Gm Tube 1 APPL TOPICAL (09:40)
--- NOTE | 2020-10-27 10:04 | MHC.CM.PN ---
Male 60 DX PE DP DISPO likely INPT psyche. He has been accepted for [facility]. CM will follow.
[2020-10-27 11:08] VITALS: BP 131/83; PULSE 84; RESP 18; TEMP 36.6; O2SAT 93
--- NOTE | 2020-10-27 13:43 | MHC.CLN ---
RE: CONSULT PT NOTED WITH REDNESS BILAT BUTT PO INTAKE 100% DIET RX: REGULAR-APPROPRIATE NO NEW INTERVENTIONS OBTAIN CURRENT WEIGHT
[2020-10-27 14:08] VITALS: BMI 33.5
[2020-10-27 15:20] VITALS: BP 116/86; PULSE 92; RESP 18; TEMP 36.5; O2SAT 94
--- NOTE | 2020-10-27 18:22 | HO.PM.IMPN ---
Subjective Subjective Date of Service: 10/27/20 Interval History: the patient was seen and evaluated this morning Laying in bed, feels better overall but still requiring 7 L of oxygen Still have significant edema all over his body Denies any fever, chills or shortness of breath No reported other overnight events. Systemic review: No fever, chills but complaining of weakness No chest pain, palpitation Complaining of resting and exertional shortness of breath or coughing No abdominal pain, nausea or vomiting No urinary symptoms No any rash or wounds Physical Exam Vital Signs: Vital Signs: Last Vital Signs Temp 97.7 F 10/27/20 15:20 Pulse 92 10/27/20 15:20 Resp 18 10/27/20 15:20 BP 116/86 10/27/20 15:20 Pulse Ox 94 10/27/20 15:20 Body Mass Index 33.5 Const: Other: Constitutional : Alert, oriented, in mild distress Neck : Normal inspection, Supple Cardiovascular : RRR, S1 S2, no lower extremity edema, on oxygen supplement to 7 L Respiratory : Decrease bilateral air entry, basal bilateral crackles, wheezes or rhonchi Gastrointestinal: soft, lax, Normal bowel sounds, Non tender Skin : Warm/Dry, No rash Neurological : Alert & oriented x3, No focal deficit Objective Data Current Medications Generic Name Dose Route Start Last Admin Trade Name Willyq PRN Reason Stop Dose Admin Apixaban 10 mg 10/22/20 09:00 10/27/20 09:38 Apixaban 5 Mg Tablet PO 10 mg BID ELISEO Administration Buprenorphine/Naloxone 1 film 10/11/20 09:30 10/27/20 09:39 Buprenorphine/Naloxone 4/1 Mg Film SUBLINGUAL Not Given BID ELISEO Fluoxetine HCl 40 mg 10/10/20 18:30 10/27/20 09:38 Fluoxetine Hcl 20 Mg Capsule PO 40 mg DAILY ELISEO Administration Gabapentin 400 mg 10/16/20 10:00 10/27/20 15:01 Gabapentin 400 Mg Capsule PO 400 mg TID ELISEO Administration Lorazepam 0.5 mg 10/24/20 09:11 10/27/20 09:39 Lorazepam 0.5 Mg Tablet PO 0.5 mg Q8H PRN Administration anxiety Miconazole Nitrate 1 appl 10/10/20 21:00 10/27/20 09:40 Miconazole 2 % Extra Thick Cr 56.7 Gm Tube TOPICAL 1 appl BID ELISEO Administration Protocol Mirtazapine 7.5 mg 10/10/20 21:00 10/26/20 20:58 Mirtazapine 7.5 Mg Tablet PO 7.5 mg BEDTIME ELISEO Administration Ondansetron HCl 4 mg 10/19/20 14:44 Ondansetron Hcl 4 Mg/2 Ml Vial IVPUSH Q8H PRN Nausea and Vomiting Prednisone 40 mg 10/21/20 09:00 10/27/20 09:38 Prednisone 20 Mg Tablet PO 40 mg DAILY ELISEO Administration Quetiapine Fumarate 50 mg 10/16/20 09:57 10/26/20 21:00 Quetiapine Fumarate 50 Mg Tablet PO 50 mg DAILY PRN Administration Restlessness Sodium Chloride 3 ml 10/19/20 16:00 10/27/20 15:01 0.9 % Sodium Chloride Flush 3 Ml Syringe IVFLUSH 3 ml QSHIFT ELISEO Administration Tizanidine HCl 4 mg 10/16/20 09:57 10/27/20 09:38 Tizanidine Hcl 4 Mg Tablet PO 4 mg Q8H PRN Administration muscle spasm Labs CBC & Chem 7: 10/26/20 05:12 10/26/20 05:12 Microbiology Microbiology Results: Microbiology 10/19/20 12:54 Blood - Venous Blood Culture - Final No growth after 5 days. 10/19/20 12:53 Blood - Venous Blood Culture - Final No growth after 5 days. 10/10/20 10:16 Blood - Venous Blood Culture - Final No growth after 5 days. 10/10/20 09:45 Blood - Venous Blood Culture - Final No growth after 5 days. Assessment and Plan (1) Acute respiratory failure with hypoxia: Status: Acute Assessment and Plan: 60M presented with hypoxia while waiting in ED for placement found to have PE. acute hypoxic respiratory failure due to PE interstitial lung disease work up in progress, so far negative eliquis 10mg bid until october 28, 2020 then decrease to 5mg bid duplex negative for dvt, echo with no RV strain continue prednisone Add IV Lasix b.i.d. hypoxia worsened last couple days, transfer to psychiatry postponed, will likely need inpatient psychiatry on discharge opoioid dependence suboxone hcv liver cirrhosis stable, outpatient follow up a1c 5.2 no obvious DM, changed regular diet DVT PPX Eliquis
[2020-10-27] MEDS: Furosemide 40 MG/4 ML VIAL IVPUSH (18:43)
[2020-10-27 19:03] VITALS: BP 160/92; PULSE 95; RESP 18; TEMP 37.6; O2SAT 95
[2020-10-27] MEDS: Mirtazapine 7.5 MG TABLET PO (20:57)
[2020-10-27] MEDS: Buprenorphine/Naloxone 4/1 mg FILM 1 FILM SUBLINGUAL (20:57)
[2020-10-27] MEDS: QUEtiapine Fumarate 50 MG TABLET PO (21:00)
[2020-10-27 23:48] VITALS: BP 153/91; PULSE 108; RESP 18; TEMP 36.3; O2SAT 95
--- NOTE | 2020-10-28 00:05 | PC.NURSE ---
P.5 BEAT VTACH I.PT HAD 5 BEAT VTACH,ASYMPTOMATIC,BP 153/91. UPDATED.ORDER FOR STAT BMP,MG GIVEN. E.CONT TO MONITOR.
[2020-10-28] MEDS: 0.9 % Sodium Chloride Flush 3 ML SYRINGE IVFLUSH ×4 (00:07→21:20)
[2020-10-28 00:40] LABS: Anion Gap 12 (12-20); Blood Urea Nitrogen 29 mg/dL (9-16); Calcium 8.2 mg/dL (8.4-10.2); Carbon Dioxide 30 mmol/L (22-29); Chloride 105 mmol/L (96-108); Creatinine Clr Calc Pharmacy 184.2; Estimated Glomerular Filt Rate > 60; Glucose Random 148 mg/dL (60-115); Magnesium 1.8 mg/dL (1.6-2.6); Potassium 3.7 mmol/L (3.3-5.1); Sodium 143 mmol/L (135-145)
[2020-10-28] MEDS: diphenhydrAMINE HCL 50 MG/ML VIAL 25 MG IVPUSH (00:49)
[2020-10-28 03:31] VITALS: BP 137/90; PULSE 103; RESP 19; TEMP 36.6; O2SAT 94
[2020-10-28 07:35] VITALS: BP 137/77; PULSE 86; RESP 20; TEMP 36.8; O2SAT 97
[2020-10-28] MEDS: Furosemide 40 MG/4 ML VIAL IVPUSH (08:40)
[2020-10-28] MEDS: Gabapentin 400 MG CAPSULE PO ×3 (08:40→21:18)
[2020-10-28] MEDS: Buprenorphine/Naloxone 4/1 mg FILM 1 FILM SUBLINGUAL ×2 (08:40→21:19)
[2020-10-28] MEDS: Apixaban 5 MG TABLET 10 MG PO (08:40)
[2020-10-28] MEDS: predniSONE 10 MG TABLET 30 MG PO (08:40)
[2020-10-28] MEDS: LORazepam 0.5 MG TABLET PO ×2 (08:40→21:16)
[2020-10-28] MEDS: Miconazole 2 % Extra Thick Cr 56.7 Gm Tube 1 APPL TOPICAL ×2 (08:40→21:27)
[2020-10-28] MEDS: FLUoxetine HCl 20 MG CAPSULE 40 MG PO (08:40)
[2020-10-28] MEDS: TiZANidine HCL 4 MG TABLET PO ×2 (08:40→21:16)
[2020-10-28 11:16] VITALS: BP 132/76; PULSE 84; RESP 20; TEMP 36.6; O2SAT 96
[2020-10-28 13:46] LABS: Asperg fumigatus Precip Abs NEGATIVE (NEGATIVE); Micropoly faeni Abs NEGATIVE (NEGATIVE); Pigeon serum Abs NEGATIVE (NEGATIVE); Saccharo pora viridis Abs NEGATIVE (NEGATIVE); Thermo candidus Abs NEGATIVE (NEGATIVE); Thermoa vulgaris #1 NEGATIVE (NEGATIVE)
[2020-10-28 15:21] VITALS: BP 140/84; PULSE 92; RESP 18; TEMP 36.1; O2SAT 95
--- NOTE | 2020-10-28 16:22 | HO.PM.IMPN ---
Subjective Subjective Date of Service: 10/28/20 Interval History: the patient was seen and evaluated this morning Laying in bed, feels better overall but still requiring 7 L of oxygen Still have significant edema all over his body with significant scrotal edema Denies any fever, chills or shortness of breath No reported other overnight events. Systemic review: No fever, chills but complaining of weakness No chest pain, palpitation Complaining of resting and exertional shortness of breath or coughing No abdominal pain, nausea or vomiting No urinary symptoms No any rash or wounds Physical Exam Vital Signs: Vital Signs: Last Vital Signs Temp 97.0 F 10/28/20 15: Pulse 92 10/28/20 15:21 Resp 18 10/28/20 15: BP 140/84 H 10/28/20 15: Pulse Ox 95 10/28/20 15: Body Mass Index 33.5 Const: Other: Constitutional : Alert, oriented, in mild distress and oxygen supplement Neck : Normal inspection, Supple Cardiovascular : RRR, S1 S2, bilateral lower extremity edema, on oxygen supplement to 7 L Respiratory : Decrease bilateral air entry, basal bilateral crackles, wheezes or rhonchi Gastrointestinal: soft, lax, Normal bowel sounds, Non tender Skin : Warm/Dry, significant scrotal edema with no tenderness Neurological : Alert & oriented x3, No focal deficit Objective Data Current Medications Generic Name Dose Route Start Last Admin Trade Name Freq PRN Reason Stop Dose Admin Apixaban 10 mg 10/22/20 09:00 10/28/20 08:40 Apixaban 5 Mg Tablet PO 10 mg BID ELISEO Administration Buprenorphine/Naloxone 1 film 10/11/20 09:30 10/28/20 08:40 Buprenorphine/Naloxone 4/1 Mg Film SUBLINGUAL 1 film BID ELISEO Administration Fluoxetine HCl 40 mg 10/10/20 18:30 10/28/20 08:40 Fluoxetine Hcl 20 Mg Capsule PO 40 mg DAILY ELISEO Administration Furosemide 40 mg 10/27/20 18:25 10/28/20 08:40 Furosemide 40 Mg/4 Ml Vial IVPUSH 40 mg BID@0900,1800 ELISEO Administration Protocol Gabapentin 400 mg 10/16/20 10:00 10/28/20 08:40 Gabapentin 400 Mg Capsule PO 400 mg TID ELISEO Administration Lorazepam 0.5 mg 10/24/20 09:11 10/28/20 08:40 Lorazepam 0.5 Mg Tablet PO 0.5 mg Q8H PRN Administration anxiety Miconazole Nitrate 1 appl 10/10/20 21:00 10/28/20 08:40 Miconazole 2 % Extra Thick Cr 56.7 Gm Tube TOPICAL 1 appl BID ELISEO Administration Protocol Mirtazapine 7.5 mg 10/10/20 21:00 10/27/20 20:57 Mirtazapine 7.5 Mg Tablet PO 7.5 mg BEDTIME ELISEO Administration Ondansetron HCl 4 mg 10/19/20 14:44 Ondansetron Hcl 4 Mg/2 Ml Vial IVPUSH Q8H PRN Nausea and Vomiting Prednisone 30 mg 10/28/20 09:00 10/28/20 08:40 Prednisone 10 Mg Tablet PO 30 mg DAILY ELISEO Administration Quetiapine Fumarate 100 mg 10/28/20 10:22 Quetiapine Fumarate 100 Mg Tablet PO BEDTIME PRN Restlessness Sodium Chloride 3 ml 10/19/20 16:00 10/28/20 08:40 0.9 % Sodium Chloride Flush 3 Ml Syringe IVFLUSH 3 ml QSHIFT ELISEO Administration Tizanidine HCl 4 mg 10/16/20 09:57 10/28/20 08:40 Tizanidine Hcl 4 Mg Tablet PO 4 mg Q8H PRN Administration muscle spasm Labs CBC & Chem 7: 10/26/20 05:12 10/28/20 00:08 Microbiology Microbiology Results: Microbiology 10/19/20 12:54 Blood - Venous Blood Culture - Final No growth after 5 days. 10/19/20 12:53 Blood - Venous Blood Culture - Final No growth after 5 days. 10/10/20 10:16 Blood - Venous Blood Culture - Final No growth after 5 days. 10/10/20 09:45 Blood - Venous Blood Culture - Final No growth after 5 days. Assessment and Plan (1) Acute respiratory failure with hypoxia: Status: Acute Assessment and Plan: 60M presented with hypoxia while waiting in ED for placement found to have PE. acute hypoxic respiratory failure due to PE interstitial lung disease work up in progress, so far negative Eliquis decreased to 5mg bid duplex negative for dvt, echo with no RV strain continue prednisone Wean oxygen down as tolerated hypoxia worsened last couple days, transfer to psychiatry postponed, will likely need inpatient psychiatry on discharge a Fluid overload Negative BNP, limited Echo was done Add IV Lasix b.i.d. Monitor intake and output opoioid dependence suboxone hcv liver cirrhosis stable, outpatient follow up a1c 5.2 no obvious DM, changed regular diet DVT PPX Eliquis
--- NOTE | 2020-10-28 18:43 | PC.NURSE ---
Addendum entered by Edith Anton RN 10/28/20 19:29: Pt educated on importance of receiving diuretic medication and continues to refuse dose. Original Note: Patient refused 1800 dose of Lasix. Stated he did not want to be urinating all night and was only willing to tae it in the morning. Dr. Andres made aware. Will make oncoming nurse aware.
[2020-10-28 19:32] VITALS: BP 158/85; PULSE 98; RESP 18; TEMP 36.7; O2SAT 93
[2020-10-28] MEDS: Mirtazapine 7.5 MG TABLET PO (21:18)
[2020-10-28] MEDS: QUEtiapine Fumarate 100 MG TABLET PO (21:18)
[2020-10-28] MEDS: Apixaban 5 MG TABLET PO (21:18)
[2020-10-28 23:57] VITALS: BP 122/73; PULSE 101; RESP 18; TEMP 37.1; O2SAT 96
[2020-10-29 04:00] VITALS: PULSE 82; RESP 18; O2SAT 93
[2020-10-29 07:01] VITALS: BP 150/83; PULSE 92; RESP 20; TEMP 36.6; O2SAT 95
[2020-10-29] MEDS: predniSONE 10 MG TABLET 30 MG PO (08:43)
[2020-10-29] MEDS: Apixaban 5 MG TABLET PO ×2 (08:43→20:22)
[2020-10-29] MEDS: Buprenorphine/Naloxone 4/1 mg FILM 1 FILM SUBLINGUAL ×2 (08:43→20:21)
[2020-10-29] MEDS: FLUoxetine HCl 20 MG CAPSULE 40 MG PO (08:43)
[2020-10-29] MEDS: Gabapentin 400 MG CAPSULE PO ×3 (08:44→20:22)
[2020-10-29] MEDS: Miconazole 2 % Extra Thick Cr 56.7 Gm Tube 1 APPL TOPICAL (08:44)
[2020-10-29] MEDS: TiZANidine HCL 4 MG TABLET PO ×3 (08:47→22:45)
[2020-10-29] MEDS: LORazepam 0.5 MG TABLET PO ×3 (08:48→22:44)
[2020-10-29 09:02] LABS: Basophils Percent Auto 0.2 % (0-2); Eosinophils Absolute Auto 0.6 X10*3/uL (0.0-0.4); Hematocrit 35.9 % (42-52); Hemoglobin 11.5 g/dl (14.0-18.0); Imm Gran Abs Auto 0.13 X10*3/uL (0.00-0.03); Imm Gran Pct Auto 0.7 % (0.0-0.4); Lymphocytes Absolute Auto 5.9 X10*3/uL (1.2-4.9); MANUAL DIFF FLAG SCAN; Mean Corpuscular Hemoglobin 30.1 pg (27.0-33.0); Mean Platelet Volume 9.8 fL (9.4-12.4); Monocytes Absolute Auto 1.9 X10*3/uL (0.1-1.2); Monocytes Percent Auto 10.2 % (2-11); Neutrophils Percent Auto 53.9 % (45-73); Platelet Count 283 X10*3/uL (160-400); Red Blood Count 3.82 X10*6/uL (4.60-5.80); Red Cell Distribution Width 19.9 % (11.0-16.0); SCAN SMEAR FLAG 1; White Blood Count 18.5 X10*3/uL (4.8-10.8)
[2020-10-29] MEDS: 0.9 % Sodium Chloride Flush 3 ML SYRINGE IVFLUSH ×3 (09:02→20:25)
[2020-10-29 09:25] LABS: SLIDE REVIEW VERIFIED
[2020-10-29 09:30] LABS: Anion Gap 11 (12-20); Blood Urea Nitrogen 27 mg/dL (9-16); Calcium 8.7 mg/dL (8.4-10.2); Carbon Dioxide 34 mmol/L (22-29); Chloride 104 mmol/L (96-108); Creatinine Clr Calc Pharmacy 177.8; Estimated Glomerular Filt Rate > 60; Glucose Random 132 mg/dL (60-115); Potassium 4.3 mmol/L (3.3-5.1); Sodium 145 mmol/L (135-145)
[2020-10-29 09:35] LABS: B Type Natriuretic Peptide 18 pg/mL (<100)
--- NOTE | 2020-10-29 10:22 | MHC.CM.PN ---
Male 60 DX PE Depression Per MD medically cleared. Kelly called for eval. Instructed to refer to N. Spoke with Latisha from [facility]. Patient is depressed. Anticipate discharge to a psych unit. CM will follow.
--- NOTE | 2020-10-29 10:50 | PC.NURSE ---
PT RESISTANT TO CARE, REFUSED IV LASIX BECAUSE HE WANTED TO SLEEP. ALSO UPSET ABOUT FLUID RESTRICTION. REFUSED P.T.. WILL NOT GET OOB.
[2020-10-29 10:57] VITALS: BP 118/73; PULSE 84; RESP 19; TEMP 35.9; O2SAT 92
--- NOTE | 2020-10-29 15:03 | P.DS_ITS ---
DS: Providers Provider Date of Service: 10/29/20 Date of admission: 10/19/20 14:48 Primary care physician: None Physician Consults: 10/19/20 16:50 Consult to Pulmonology Routine Consulting Provider: Brian Tierney Reason for consultation: ILD, PE 10/22/20 09:53 Consult to Crisis Stat Reason for consultation: depression, no SI, patient requesting inpatient psych admission, med clear 10/22/20 10:09 Consult to Care Team Routine Comment: Reason for consultation: depression DS: Diagnosis Discharge Diagnosis (1) Acute respiratory failure with hypoxia: Status: Acute (2) Pulmonary embolism without acute cor pulmonale: Status: Acute (3) ILD (interstitial lung disease): Status: Acute (4) Depression: Status: Acute (5) Fluid overload: Status: Acute (6) Opioid use disorder, moderate, in controlled environment: Status: Acute DS: Medications Discharge Medications Home Medications: Home Medications Medication Instructions Recorded Confirmed gabapentin 1 cap PO TID 10/16/20 10/16/20 tizanidine 1 tab PO Q8H PRN 10/16/20 10/16/20 Previous Rx's Medication Instructions Recorded fluoxetine 40 mg PO DAILY #30 cap 06/28/20 mirtazapine 7.5 mg PO BEDTIME #30 tab 06/28/20 lorazepam 0.5 mg PO Q8H PRN #10 tab 09/30/20 miconazole nitrate [Inzo 1 appl TOPICAL BID #30 g 09/30/20 Antifungal] apixaban [Eliquis] 5 mg PO BID 30 Days #60 tab 10/29/20 furosemide [Lasix] 40 mg PO BID #60 tab 10/29/20 prednisone See Rx Instructions .ROUTE 10/29/20 .COMPLEX #15 tab quetiapine 2 tab PO DAILY PRN #0 tab 10/29/20 DS: Summary Hospital Course Hospital Course: Admission note HPI This is a 60-year-old female with a past medical history as outlined below who is well known to the [facility] as well as inpatient services from prior admissions. The patient had a prolonged hospitalization from 09/02 until 09/30/2020 where he was treated for a multitude of things including pneumonia, heart failure, respiratory failure. He required treatment in the intensive care and was under mechanical ventilation. He was able to be successfully weaned from the ventilator and subsequently transitioned to the floor where his treatment was continued and ultimately he was discharged to short-term rehabilitation. Through chart review it appears that the patient did indeed go to short-term rehabilitation only to sign out against medical advice shortly thereafter. The patient presented back to [facility], it appears with complaints of weakness and leg pain. His medical evaluation at that time did not meet inpatient level of care and so he has been boarding in the ED. again from chart review it appears that 183 referrals have been made, however he has not been accepted. At some point this morning it appears that the patient went into respiratory distress with saturations dropping to the mid 70s on room air. Rest was called and the patient was placed on BiPAP and repeat blood work was initiated. He was successfully able to be weaned from BiPAP down to nasal cannula. His chest x- ray revealed increased interstitial markings with superimposed interstitial pneumonitis or edema. [place] [id number], which increased from 16,000 only 2 days prior. He had cultures drawn and was given broad- spectrum IV antibiotics for possibility of pneumonia. A CTA of the chest to rule out pulmonary embolism has been requested and pending at this time. Patient is seen and examined the emergency room. He reports that he is breathing better now than he was this morning. He denies any chest pain. He does endorse nonproductive cough and shortness of breath. He also endorses constipation. At this time he is denying any SI. Hospital course The patient was waiting placement in the emergency when he started to have shortness of breath. Evaluated and admitted for acute hypoxic respiratory failure. Workup with CTA was positive for pulmonary embolism. The patient was treated with Lovenox full dose which was transitioned to Eliquis 10 mg b.i.d. for 1 week before being discharged on Eliquis 5 mg twice daily for now. Echo was done showing no RV strain. Oxygen was weaned down as tolerated up to 2 L at the day of discharge. The patient was noticed to fluid overload mainly in the lower extremities with negative BNP. He was treated with IV Lasix and need be discharged on oral Lasix. He was evaluated by psychiatry team for depression with recommendations for inpatient psych admission. Time Spent with Patient Time attestation: Total time spent providing and/or coordinating discharge services: Discharge coordination time: Greater than 30 minutes Quality: Stroke Does the patient have a stroke diagnosis?: No Physical Exam Vital Signs: Vital Signs: Last Vital Signs Temp 96.6 F L 10/29/20 10:57 Pulse 84 10/29/20 10:57 Resp 19 10/29/20 10:57 BP 118/73 10/29/20 10:57 Pulse Ox 92 10/29/20 10:57 Body Mass Index 33.5 Const: Other: Constitutional : Alert, oriented, not in distress Neck : Normal inspection, Supple Cardiovascular : RRR, S1 S2, bilateral lower extremity edema, on oxygen supplement to 2 L Respiratory : Decrease bilateral air entry, basal bilateral crackles, wheezes or rhonchi Gastrointestinal: soft, lax, Normal bowel sounds, Non tender Skin : Warm/Dry, scrotal edema with no tenderness Neurological : Alert & oriented x3, No focal deficit DS: Data Data Completed and Pending Completed studies during hospitalization [Text1]: Procedures Assistance with Respiratory Ventilation, Less than 24 Consecutive Hours, Continuous Positive Airway Pressure (09/02/20) Detoxification Services for Substance Abuse Treatment (05/02/20) Insertion of Endotracheal Airway into Trachea, Via Natural or Artificial Opening Endoscopic (09/02/20) Insertion of Infusion Device into Superior Vena Cava, Percutaneous Approach (09/02/20) Introduction of Vasopressor into Central Vein, Percutaneous Approach (09/02/20) Repair Left Lower Leg Skin, External Approach (05/02/20) Respiratory Ventilation, Greater than 96 Consecutive Hours (09/02/20) Labs on day of discharge: Laboratory Results - last 24 hr 10/29/20 10/29/20 10/29/20 08:48 08:48 08:48 WBC 18.5 H RBC 3.82 L Hgb 11.5 L Hct 35.9 L MCV 94.0 MCH 30.1 MCHC 32.0 RDW 19.9 H Plt Count 283 MPV 9.8 Immature Gran % (Auto) 0.7 H Neut % (Auto) 53.9 Lymph % (Auto) 32.0 [place] % (Auto) 10.2 Eos % (Auto) 3.0 Baso % (Auto) 0.2 Lymph # (Auto) 5.9 H [place] # (Auto) 1.9 H Eos # (Auto) 0.6 H Baso # (Auto) 0.0 Abs Immat Gran (auto) 0.13 H Absolute Neuts (auto) 10.0 H Absolute Nucleated RBC 0.000 Nucleated RBC % (auto) 0.0 Smear Tech's Comments VERIFIED Sodium 145 Potassium 4.3 Chloride 104 Carbon Dioxide 34 H Anion Gap 11 L BUN 27 H Creatinine 0.58 Estim Creat Clear Calc 177.8 Estimated GFR > 60 Random Glucose 132 H Calcium 8.7 D B-Natriuretic Peptide 18 Discharge Plan Discharge Patient Disposition: Xfer Psychiatric Hosp Referrals: Physician,None [Primary Care Provider] - 1 Week Discharge Medications: New prednisone 10 mg Tablet See Rx Instructions .ROUTE .COMPLEX Qty: 15 RF: 0 Eliquis 5 mg Tablet 5 mg PO BID 30 Days Qty: 60 RF: 0 furosemide [Lasix] 40 mg tablet 40 mg PO BID Qty: 60 RF: 0 Continued miconazole nitrate [Inzo Antifungal] 2 % Cream 1 appl topical BID Qty: 30 RF: 0 lorazepam 0.5 mg Tablet 0.5 mg PO Q8H PRN (Reason: Anxiety) Qty: 10 RF: 0 mirtazapine 7.5 mg Tablet 7.5 mg PO BEDTIME Qty: 30 RF: 0 fluoxetine 20 mg capsule 40 mg PO DAILY Qty: 30 RF: 0 tizanidine 4 mg tablet 1 tab PO Q8H PRN (Reason: muscle spasm) RF: 0 gabapentin 400 mg capsule 1 cap PO TID RF: 0 Changed quetiapine 50 mg tablet 2 tab PO DAILY PRN (Reason: Agitation) Qty: 0 RF: 0 Discontinued furosemide 20 mg Tablet 20 mg PO DAILY Qty: 30 RF: 0 prednisone 10 mg tablet See Taper mg PO DAILY Qty: 90 RF: 0 Discharge Orders: Discharge Order (Routine); Ordered 10/29/20 Ordered By: Jered Andres Diet: advance to usual diet and low salt diet Activity on Discharge: As tolerated Stand Alone Forms: Patient Portal Discharge page
[2020-10-29 15:14] VITALS: BP 136/80; PULSE 100; RESP 21; TEMP 36; O2SAT 92
[2020-10-29] MEDS: Furosemide 40 MG/4 ML VIAL IVPUSH (16:57)
--- NOTE | 2020-10-29 17:46 | MHC.CARE ---
Pt no longer being medically admit to [facility]. CARE Team spoke with CORINNA who reported -PT will need a re-evaluation by CRISIS Team before IPLOC to be approved again.
[2020-10-29 19:10] VITALS: BP 135/85; PULSE 98; RESP 20; TEMP 36; O2SAT 96
[2020-10-29] MEDS: Mirtazapine 7.5 MG TABLET PO (20:22)
[2020-10-29] MEDS: QUEtiapine Fumarate 100 MG TABLET PO (20:22)
[2020-10-29 23:37] VITALS: BP 133/76; PULSE 90; RESP 18; TEMP 37.1; O2SAT 95
[2020-10-30 04:00] VITALS: BP 135/69; PULSE 79; RESP 20; TEMP 36.8; O2SAT 98
[2020-10-30 07:05] VITALS: BP 138/73; PULSE 109; RESP 22; TEMP 36.1; O2SAT 97
--- NOTE | 2020-10-30 07:59 | P.PNIM_ITS ---
Subjective Subjective Date of Service: 10/29/20 Interval History: the patient was seen and evaluated this morning Laying in bed, feels better overall but still requiring 4 L of oxygen Still have significant edema all over his body with significant scrotal edema Denies any fever, chills or shortness of breath No reported other overnight events. Systemic review: No fever, chills but complaining of weakness No chest pain, palpitation Complaining of resting and exertional shortness of breath or coughing No abdominal pain, nausea or vomiting No urinary symptoms No any rash or wounds Physical Exam Vital Signs: Vital Signs: Last Vital Signs Temp 97 F 10/30/20 07:05 Pulse 109 H 10/30/20 07:05 Resp 22 H 10/30/20 07:05 BP 138/73 10/30/20 07:05 Pulse Ox 97 10/30/20 07:05 Body Mass Index 33.5 Const: Other: Constitutional : Alert, oriented, not in distress Neck : Normal inspection, Supple Cardiovascular : RRR, S1 S2, bilateral lower extremity edema, on oxygen supplement to 2 L Respiratory : Decrease bilateral air entry, basal bilateral crackles, wheezes or rhonchi Gastrointestinal: soft, lax, Normal bowel sounds, Non tender Skin : Warm/Dry, scrotal edema with no tenderness Neurological : Alert & oriented x3, No focal deficit Objective Data Current Medications Generic Name Dose Route Start Last Admin Trade Name Willyq PRN Reason Stop Dose Admin Apixaban 5 mg 10/28/20 21:00 10/29/20 20:22 Apixaban 5 Mg Tablet PO 5 mg BID ELISEO Administration Buprenorphine/Naloxone 1 film 10/11/20 09:30 10/29/20 20:21 Buprenorphine/Naloxone 4/1 Mg Film SUBLINGUAL 1 film BID ELISEO Administration Fluoxetine HCl 40 mg 10/10/20 18:30 10/29/20 08:43 Fluoxetine Hcl 20 Mg Capsule PO 40 mg DAILY ELISEO Administration Furosemide 40 mg 10/27/20 18:25 10/29/20 16:57 Furosemide 40 Mg/4 Ml Vial IVPUSH 40 mg BID@0900,1800 ELISEO Administration Protocol Gabapentin 400 mg 10/16/20 10:00 10/29/20 20:22 Gabapentin 400 Mg Capsule PO 400 mg TID ELISEO Administration Lorazepam 0.5 mg 10/29/20 13:34 10/29/20 22:44 Lorazepam 0.5 Mg Tablet PO 0.5 mg Q8H PRN Administration Anxiety Miconazole Nitrate 1 appl 10/10/20 21:00 10/29/20 20:27 Miconazole 2 % Extra Thick Cr 56.7 Gm Tube TOPICAL Not Given BID [facility] Protocol Mirtazapine 7.5 mg 10/10/20 21:00 10/29/20 20:22 Mirtazapine 7.5 Mg Tablet PO 7.5 mg BEDTIME ELISEO Administration Ondansetron HCl 4 mg 10/19/20 14:44 Ondansetron Hcl 4 Mg/2 Ml Vial IVPUSH Q8H PRN Nausea and Vomiting Prednisone 30 mg 10/28/20 09:00 10/29/20 08:43 Prednisone 10 Mg Tablet PO 30 mg DAILY ELISEO Administration Quetiapine Fumarate 100 mg 10/28/20 10:22 10/29/20 20:22 Quetiapine Fumarate 100 Mg Tablet PO 100 mg BEDTIME PRN Administration Restlessness Sodium Chloride 3 ml 10/19/20 16:00 10/29/20 20:25 0.9 % Sodium Chloride Flush 3 Ml Syringe IVFLUSH 3 ml QSHIFT ELISEO Administration Tizanidine HCl 4 mg 10/16/20 09:57 10/29/20 22:45 Tizanidine Hcl 4 Mg Tablet PO 4 mg Q8H PRN Administration muscle spasm Labs CBC & Chem 7: 10/29/20 08:48 10/29/20 08:48 Microbiology Microbiology Results: Microbiology 10/19/20 12:54 Blood - Venous Blood Culture - Final No growth after 5 days. 10/19/20 12:53 Blood - Venous Blood Culture - Final No growth after 5 days. 10/10/20 10:16 Blood - Venous Blood Culture - Final No growth after 5 days. 10/10/20 09:45 Blood - Venous Blood Culture - Final No growth after 5 days. Assessment and Plan (1) Acute respiratory failure with hypoxia: Status: Acute (2) Pulmonary embolism without acute cor pulmonale: Status: Acute (3) ILD (interstitial lung disease): Status: Acute (4) Depression: Status: Acute (5) Fluid overload: Status: Acute (6) Opioid use disorder, moderate, in controlled environment: Status: Acute Assessment and Plan: 60M presented with hypoxia while waiting in ED for placement found to have PE. acute hypoxic respiratory failure due to PE interstitial lung disease work up in progress, so far negative Eliquis decreased to 5mg bid duplex negative for dvt, echo with no RV strain continue prednisone Wean oxygen down as tolerated hypoxia worsened last couple days, transfer to psychiatry postponed, will likely need inpatient psychiatry on discharge a Fluid overload Negative BNP, limited Echo was done Change Lasix to p.o. Monitor intake and output opoioid dependence suboxone hcv liver cirrhosis stable, outpatient follow up a1c 5.2 no obvious DM, changed regular diet DVT PPX Eliquis
[2020-10-30] MEDS: predniSONE 10 MG TABLET 30 MG PO (09:31)
[2020-10-30] MEDS: LORazepam 0.5 MG TABLET PO ×2 (09:31→20:31)
[2020-10-30] MEDS: TiZANidine HCL 4 MG TABLET PO ×2 (09:31→16:01)
[2020-10-30] MEDS: FLUoxetine HCl 20 MG CAPSULE 40 MG PO (09:32)
[2020-10-30] MEDS: Furosemide 40 MG TABLET PO (09:33)
[2020-10-30] MEDS: Gabapentin 400 MG CAPSULE PO ×3 (09:33→20:32)
[2020-10-30] MEDS: Apixaban 5 MG TABLET PO ×2 (09:33→20:32)
[2020-10-30] MEDS: Buprenorphine/Naloxone 4/1 mg FILM 1 FILM SUBLINGUAL ×2 (09:34→20:32)
[2020-10-30] MEDS: 0.9 % Sodium Chloride Flush 3 ML SYRINGE IVFLUSH ×3 (09:50→20:32)
[2020-10-30 11:04] VITALS: BP 117/66; PULSE 85; RESP 22; TEMP 35.5; O2SAT 92
[2020-10-30] MEDS: metOLazone 2.5 MG TABLET PO (12:57)
[2020-10-30 15:26] VITALS: BP 126/77; PULSE 96; RESP 18; TEMP 36.4; O2SAT 93
--- NOTE | 2020-10-30 16:11 | P.PNIM_ITS ---
Subjective Subjective Date of Service: 10/30/20 Interval History: the patient was seen and evaluated this morning Laying in bed with no activities done, feels better overall as he weaned off the oxygen this morning Still have significant edema all over his body with significant scrotal edema getting worse Refused IV Lasix the whole day yesterday Denies any fever, chills or shortness of breath No reported other overnight events. Systemic review: No fever, chills but complaining of weakness No chest pain, palpitation Complaining of resting and exertional shortness of breath or coughing No abdominal pain, nausea or vomiting No urinary symptoms No any rash or wounds Physical Exam Vital Signs: Vital Signs: Last Vital Signs Temp 97.5 F 10/30/20 15:26 Pulse 96 10/30/20 15:26 Resp 18 10/30/20 15:26 BP 126/77 10/30/20 15:26 Pulse Ox 93 10/30/20 15:26 Body Mass Index 33.5 Const: Other: Constitutional : Alert, oriented, not in distress Neck : Normal inspection, Supple Cardiovascular : RRR, S1 S2, +3 bilateral lower extremity edema around the knee level, weaned off oxygen Respiratory : Decrease bilateral air entry, basal bilateral crackles, wheezes or rhonchi Gastrointestinal: soft, lax, Normal bowel sounds, Non tender Skin : Warm/Dry, enlarging scrotal edema with no tenderness Neurological : Alert & oriented x3, No focal deficit Objective Data Current Medications Generic Name Dose Route Start Last Admin Trade Name Freq PRN Reason Stop Dose Admin Apixaban 5 mg 10/28/20 21:00 10/30/20 09:33 Apixaban 5 Mg Tablet PO 5 mg BID ELISEO Administration Buprenorphine/Naloxone 1 film 10/11/20 09:30 10/30/20 09:34 Buprenorphine/Naloxone 4/1 Mg Film SUBLINGUAL 1 film BID ELISEO Administration Fluoxetine HCl 40 mg 10/10/20 18:30 10/30/20 09:32 Fluoxetine Hcl 20 Mg Capsule PO 40 mg DAILY ELISEO Administration Gabapentin 400 mg 10/16/20 10:00 10/30/20 16:00 Gabapentin 400 Mg Capsule PO 400 mg TID ELISEO Administration Lorazepam 0.5 mg 10/29/20 13:34 10/30/20 09:31 Lorazepam 0.5 Mg Tablet PO 0.5 mg Q8H PRN Administration Anxiety Metolazone 5 mg 10/31/20 07:30 Metolazone 5 Mg Tablet PO DAILY@0730 [facility] Miconazole Nitrate 1 appl 10/10/20 21:00 10/30/20 13:05 Miconazole 2 % Extra Thick Cr 56.7 Gm Tube TOPICAL Not Given BID [facility] Protocol Mirtazapine 7.5 mg 10/10/20 21:00 10/29/20 20:22 Mirtazapine 7.5 Mg Tablet PO 7.5 mg BEDTIME ELISEO Administration Ondansetron HCl 4 mg 10/19/20 14:44 Ondansetron Hcl 4 Mg/2 Ml Vial IVPUSH Q8H PRN Nausea and Vomiting Prednisone 20 mg 10/31/20 09:00 Prednisone 20 Mg Tablet PO DAILY [facility] Quetiapine Fumarate 100 mg 10/28/20 10:22 10/29/20 20:22 Quetiapine Fumarate 100 Mg Tablet PO 100 mg BEDTIME PRN Administration Restlessness Sodium Chloride 3 ml 10/19/20 16:00 10/30/20 16:03 0.9 % Sodium Chloride Flush 3 Ml Syringe IVFLUSH 3 ml QSHIFT [facility] Administration Tizanidine HCl 4 mg 10/16/20 09:57 10/30/20 16:01 Tizanidine Hcl 4 Mg Tablet PO 4 mg Q8H PRN Administration muscle spasm Labs CBC & Chem 7: 10/29/20 08:48 10/29/20 08:48 Microbiology Microbiology Results: Microbiology 10/19/20 12:54 Blood - Venous Blood Culture - Final No growth after 5 days. 10/19/20 12:53 Blood - Venous Blood Culture - Final No growth after 5 days. 10/10/20 10:16 Blood - Venous Blood Culture - Final No growth after 5 days. 10/10/20 09:45 Blood - Venous Blood Culture - Final No growth after 5 days. Assessment and Plan (1) Acute respiratory failure with hypoxia: Status: Acute (2) Pulmonary embolism without acute cor pulmonale: Status: Acute (3) ILD (interstitial lung disease): Status: Acute (4) Depression: Status: Acute (5) Fluid overload: Status: Acute (6) Opioid use disorder, moderate, in controlled environment: Status: Acute Assessment and Plan: 60M presented with hypoxia while waiting in ED for placement found to have PE. acute hypoxic respiratory failure due to PE Eliquis 5mg bid duplex negative for dvt, echo with no RV strain continue prednisone tapering dose, decreased to 20 Depression Suicidal ideation Plan to transfer to psychiatry postponed, will likely need inpatient psychiatry at a different facility as the patient is physically deconditioned Physical deconditioning Secondary to prolonged hospital stay, fluid overload Physical therapy evaluation Fluid overload Negative BNP, limited Echo was done Change Lasix to p.o. with higher dose Monitor intake and output opoioid dependence suboxone hcv liver cirrhosis stable, outpatient follow up DVT PPX Eliquis
[2020-10-30 19:36] VITALS: BP 116/64; PULSE 90; RESP 18; TEMP 36.1; O2SAT 95
[2020-10-30] MEDS: QUEtiapine Fumarate 100 MG TABLET PO (20:32)
[2020-10-30] MEDS: Mirtazapine 7.5 MG TABLET PO (20:32)
[2020-10-31] VITALS: BP 121/68; PULSE 98; RESP 18; TEMP 36.8; O2SAT 98
[2020-10-31 04:00] VITALS: BP 130/78; PULSE 87; RESP 18; TEMP 36.5; O2SAT 96
[2020-10-31 07:02] VITALS: BP 138/79; PULSE 82; RESP 20; TEMP 36.6; O2SAT 92
[2020-10-31] MEDS: LORazepam 0.5 MG TABLET PO ×2 (08:10→21:42)
[2020-10-31] MEDS: Furosemide 40 MG TABLET 80 MG PO (08:11)
[2020-10-31] MEDS: predniSONE 20 MG TABLET PO (08:11)
[2020-10-31] MEDS: metOLazone 5 MG TABLET PO (08:11)
[2020-10-31] MEDS: Apixaban 5 MG TABLET PO ×2 (08:11→21:35)
[2020-10-31] MEDS: Gabapentin 400 MG CAPSULE PO ×3 (08:12→21:35)
[2020-10-31] MEDS: FLUoxetine HCl 20 MG CAPSULE 40 MG PO (08:12)
[2020-10-31] MEDS: Buprenorphine/Naloxone 4/1 mg FILM 1 FILM SUBLINGUAL ×2 (08:13→21:50)
[2020-10-31] MEDS: 0.9 % Sodium Chloride Flush 3 ML SYRINGE IVFLUSH ×3 (08:18→22:01)
[2020-10-31 11:01] VITALS: BP 132/64; PULSE 88; RESP 20; TEMP 36.9; O2SAT 93
[2020-10-31] MEDS: Morphine Sulfate 4 MG/ML CARTRIDGE 3 MG IVPUSH (11:15)
[2020-10-31] MEDS: Phenazopyridine HCL 100 MG TABLET PO ×2 (11:16→17:27)
[2020-10-31] MEDS: Lidocaine HCl 2 % Urojet 10 ML JEL.PF.APP TOPICAL (11:17)
[2020-10-31 12:33] LABS: Anion Gap 14 (12-20); Blood Urea Nitrogen 27 mg/dL (9-16); Calcium 8.3 mg/dL (8.4-10.2); Carbon Dioxide 32 mmol/L (22-29); Chloride 101 mmol/L (96-108); Estimated Glomerular Filt Rate > 60; Glucose Random 121 mg/dL (60-115); Potassium 3.8 mmol/L (3.3-5.1); Sodium 143 mmol/L (135-145)
--- NOTE | 2020-10-31 14:26 | HO.PM.IMPN ---
Subjective Subjective Date of Service: 10/31/20 Interval History: the patient was seen and evaluated this morning Laying in bed with no activities done Increased edema as the patient refusing Lasix on multiple occasion and has been drinking extra to what he supposed to edema all over his body with significant scrotal edema getting worse Agreed to place a John catheter in Denies any fever, chills or shortness of breath No reported other overnight events. Systemic review: No fever, chills but complaining of weakness No chest pain, palpitation Complaining of resting and exertional shortness of breath or coughing, edema in his lower extremities No abdominal pain, nausea or vomiting No urinary symptoms No any rash or wounds Physical Exam Vital Signs: Vital Signs: Last Vital Signs Temp 98.4 F 10/31/20 11:01 Pulse 88 10/31/20 11:01 Resp 20 10/31/20 11:01 BP 132/64 10/31/20 11:01 Pulse Ox 93 10/31/20 11:01 Body Mass Index 33.5 Const: Other: Constitutional : Alert, oriented, not in distress Neck : Normal inspection, Supple Cardiovascular : RRR, S1 S2, +3 bilateral lower extremity edema around the knee level Respiratory : Decrease bilateral air entry, basal bilateral crackles, wheezes or rhonchi Gastrointestinal: soft, lax, Normal bowel sounds, Non tender Skin : Warm/Dry, enlarging scrotal edema hydrocele with no tenderness Neurological : Alert & oriented x3, No focal deficit Objective Data Current Medications Generic Name Dose Route Start Last Admin Trade Name Willyq PRN Reason Stop Dose Admin Apixaban 5 mg 10/28/20 21:00 10/31/20 08:11 Apixaban 5 Mg Tablet PO 5 mg BID ELISEO Administration Buprenorphine/Naloxone 1 film 10/11/20 09:30 10/31/20 08:13 Buprenorphine/Naloxone 4/1 Mg Film SUBLINGUAL 1 film BID ELISEO Administration Fluoxetine HCl 40 mg 10/10/20 18:30 10/31/20 08:12 Fluoxetine Hcl 20 Mg Capsule PO 40 mg DAILY ELISEO Administration Furosemide 60 mg 10/31/20 18:00 Furosemide 100 Mg/10 Ml Vial IVPUSH BID@0900,1800 [facility] Protocol Gabapentin 400 mg 10/16/20 10:00 10/31/20 08:12 Gabapentin 400 Mg Capsule PO 400 mg TID ELISEO Administration Lorazepam 0.5 mg 10/29/20 13:34 10/31/20 08:10 Lorazepam 0.5 Mg Tablet PO 0.5 mg Q8H PRN Administration Anxiety Metolazone 5 mg 10/31/20 07:30 10/31/20 08:11 Metolazone 5 Mg Tablet PO 5 mg DAILY@0730 ELISEO Administration Miconazole Nitrate 1 appl 10/10/20 21:00 10/31/20 08:19 Miconazole 2 % Extra Thick Cr 56.7 Gm Tube TOPICAL Not Given BID [facility] Protocol Mirtazapine 7.5 mg 10/10/20 21:00 10/30/20 20:32 Mirtazapine 7.5 Mg Tablet PO 7.5 mg BEDTIME ELISEO Administration Ondansetron HCl 4 mg 10/19/20 14:44 Ondansetron Hcl 4 Mg/2 Ml Vial IVPUSH Q8H PRN Nausea and Vomiting Phenazopyridine HCl 100 mg 10/31/20 10:10 10/31/20 11:16 Phenazopyridine Hcl 100 Mg Tablet PO 11/02/20 17:01 100 mg BIDWM ELISEO Administration Potassium Chloride 40 meq 10/31/20 14:22 Potassium Chloride Er 20 Meq Tab.Er.Prt PO 10/31/20 14:23 ONCE ONE Prednisone 20 mg 10/31/20 09:00 10/31/20 08:11 Prednisone 20 Mg Tablet PO 20 mg DAILY ELISEO Administration Quetiapine Fumarate 100 mg 10/28/20 10:22 10/30/20 20:32 Quetiapine Fumarate 100 Mg Tablet PO 100 mg BEDTIME PRN Administration Restlessness Sodium Chloride 3 ml 10/19/20 16:00 10/31/20 08:18 0.9 % Sodium Chloride Flush 3 Ml Syringe IVFLUSH 3 ml QSHIFT ELISEO Administration Tizanidine HCl 4 mg 10/16/20 09:57 10/31/20 00:00 Tizanidine Hcl 4 Mg Tablet PO 4 mg Q8H PRN Administration muscle spasm Labs CBC & Chem 7: 10/29/20 08:48 10/31/20 09:50 Microbiology Microbiology Results: Microbiology 10/19/20 12:54 Blood - Venous Blood Culture - Final No growth after 5 days. 10/19/20 12:53 Blood - Venous Blood Culture - Final No growth after 5 days. 10/10/20 10:16 Blood - Venous Blood Culture - Final No growth after 5 days. 10/10/20 09:45 Blood - Venous Blood Culture - Final No growth after 5 days. Assessment and Plan (1) Acute respiratory failure with hypoxia: Status: Acute (2) Pulmonary embolism without acute cor pulmonale: Status: Acute (3) ILD (interstitial lung disease): Status: Acute (4) Depression: Status: Acute (5) Fluid overload: Status: Acute (6) Opioid use disorder, moderate, in controlled environment: Status: Acute Assessment and Plan: 60M presented with hypoxia while waiting in ED for placement found to have PE. acute hypoxic respiratory failure due to PE Eliquis 5mg bid duplex negative for dvt, echo with no RV strain Fluid overload Represents right-sided failure Negative BNP, echo showed normal EF History of tricuspid insufficiency, venous hypertension John catheter placed Change Lasix to IV with higher dose To use metolazone in the morning Monitor intake and output ILD Workup in progress with pulmonology continue prednisone tapering dose, decreased to 20 Depression Suicidal ideation Plan to transfer to psychiatry postponed, will likely need inpatient psychiatry at a different facility as the patient is physically deconditioned To get psychiatry evaluation Physical deconditioning Secondary to prolonged hospital stay, fluid overload Physical therapy evaluation opoioid dependence suboxone hcv liver cirrhosis stable, outpatient follow up DVT PPX Eliquis
[2020-10-31] MEDS: Potassium Chloride ER 20 MEQ TAB.ER.PRT 40 MEQ PO (14:44)
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
[2020-10-31 15:24] VITALS: BP 143/74; PULSE 101; RESP 18; TEMP 36.8; O2SAT 97
[2020-10-31] MEDS: Furosemide 100 MG/10 ML VIAL 60 MG IVPUSH (17:27)
[2020-10-31 19:41] VITALS: BP 138/87; PULSE 107; RESP 18; TEMP 36.9; O2SAT 96
[2020-10-31] MEDS: Mirtazapine 15 MG TABLET PO (21:35)
[2020-10-31] MEDS: QUEtiapine Fumarate 100 MG TABLET PO (21:38)
[2020-10-31] MEDS: TiZANidine HCL 4 MG TABLET PO ×2 (21:38)
[2020-10-31] MEDS: Miconazole 2 % Extra Thick Cr 56.7 Gm Tube 1 APPL TOPICAL (21:43)
[2020-11-01] VITALS (7 sets, daily range): BP systolic 101–139; BP diastolic 63–89; PULSE 71–94; RESP 16–20; TEMP 36.1–36.9; O2SAT 95–100
--- NOTE | 2020-11-01 05:48 | PC.NURSE ---
Patient has been uncooperative all night. Pt refusing vitals during the night, has zero interest in his condition/diet/fluid restriction. Pt refusing all night to reposition, states I've leaned to the side here and there . Pt educated on importance of repositioning, has no interest just interrupts. Pt states, I'm going to talk to the doctor today about this bullshit diet and fluids, I'm all done with it .
[2020-11-01] MEDS: Phenazopyridine HCL 100 MG TABLET PO ×2 (08:10→15:52)
[2020-11-01] MEDS: FLUoxetine HCl 20 MG CAPSULE 40 MG PO (08:10)
[2020-11-01] MEDS: Buprenorphine/Naloxone 4/1 mg FILM 1 FILM SUBLINGUAL ×2 (08:11→20:33)
[2020-11-01] MEDS: 0.9 % Sodium Chloride Flush 3 ML SYRINGE IVFLUSH ×3 (08:11→20:33)
[2020-11-01] MEDS: Apixaban 5 MG TABLET PO ×2 (08:11→20:33)
[2020-11-01] MEDS: Furosemide 100 MG/10 ML VIAL 60 MG IVPUSH ×2 (08:11→17:46)
[2020-11-01] MEDS: Gabapentin 400 MG CAPSULE PO ×3 (08:11→20:33)
[2020-11-01] MEDS: predniSONE 20 MG TABLET PO (08:11)
[2020-11-01] MEDS: metOLazone 5 MG TABLET PO (08:11)
[2020-11-01] MEDS: TiZANidine HCL 4 MG TABLET PO ×2 (08:12→20:32)
[2020-11-01] MEDS: LORazepam 0.5 MG TABLET PO ×2 (08:13→20:34)
[2020-11-01] MEDS: Miconazole 2 % Extra Thick Cr 56.7 Gm Tube 1 APPL TOPICAL (08:20)
--- NOTE | 2020-11-01 12:11 | MHC.CM.PN ---
Male 60 DX PE LOS is r/t continued need for Oxygen 7L. DC was planned last week. He was medically cleared at that time. He was scheduled for [place] to [facility] last week. Medical needs could not be managed on M-5. Oxygen bed bound.
[2020-11-01 12:32] LABS: B Type Natriuretic Peptide 20 pg/mL (<100)
[2020-11-01 13:05] LABS: Folate 15.8 ng/mL (> or = 4.0); Vitamin B12 516 pg/mL (200-900)
[2020-11-01 13:23] LABS: Blood Urea Nitrogen 24 mg/dL (9-16); Calcium 8.7 mg/dL (8.4-10.2); Creatinine Clr Calc Pharmacy 184.2; Estimated Glomerular Filt Rate > 60; Glucose Random 100 mg/dL (60-115)
[2020-11-01 13:39] LABS: Anion Gap 11 (12-20); Carbon Dioxide 40 mmol/L (22-29); Chloride 95 mmol/L (96-108); Potassium 3.5 mmol/L (3.3-5.1); Sodium 142 mmol/L (135-145)
[2020-11-01 13:43] LABS: Thyroid Stimulating Hormone 2.33 uIU/mL (0.32-4.0); Vitamin D 25-OH Total 8.5 ng/mL (>30)
[2020-11-01] MEDS: acetaZOLAMIDE 250 MG TABLET 500 MG PO ×2 (14:42→20:33)
[2020-11-01] MEDS: Potassium Chloride Packet 20 MEQ PACKET 40 MEQ PO ×2 (14:42→17:46)
--- NOTE | 2020-11-01 16:41 | HO.PM.IMPN ---
Subjective Subjective Date of Service: 11/01/20 Interval History: the patient was seen and evaluated this morning Laying in bed with no activities done Improving edema in lower extremities and scrotum after starting IV Lasix and placing John catheter yesterday Denies any fever, chills or shortness of breath No reported other overnight events. Systemic review: No fever, chills but complaining of weakness No chest pain, palpitation Complaining of resting and exertional shortness of breath or coughing, still have significant edema in his lower extremities No abdominal pain, nausea or vomiting No urinary symptoms No any rash or wounds Physical Exam Vital Signs: Vital Signs: Last Vital Signs Temp 97.7 F 11/01/20 16:00 Pulse 94 11/01/20 16:00 Resp 20 11/01/20 16:00 BP 132/77 11/01/20 16:00 Pulse Ox 96 11/01/20 16:00 Body Mass Index 33.5 Const: Other: Constitutional : Alert, oriented, not in distress Neck : Normal inspection, Supple Cardiovascular : RRR, S1 S2, +3 bilateral lower extremity edema around the knee level Respiratory : Decrease bilateral air entry, basal bilateral crackles, wheezes or rhonchi Gastrointestinal: soft, lax, Normal bowel sounds, Non tender Skin : Warm/Dry, enlarging scrotal edema hydrocele with no tenderness Neurological : Alert & oriented x3, No focal deficit Objective Data Current Medications Generic Name Dose Route Start Last Admin Trade Name Freq PRN Reason Stop Dose Admin Acetazolamide 500 mg 11/01/20 13:45 11/01/20 14:42 Acetazolamide 250 Mg Tablet PO 500 mg BID ELISEO Administration Apixaban 5 mg 10/28/20 21:00 11/01/20 08:11 Apixaban 5 Mg Tablet PO 5 mg BID ELISEO Administration Buprenorphine/Naloxone 1 film 10/11/20 09:30 11/01/20 08:11 Buprenorphine/Naloxone 4/1 Mg Film SUBLINGUAL 1 film BID ELISEO Administration Fluoxetine HCl 40 mg 10/10/20 18:30 11/01/20 08:10 Fluoxetine Hcl 20 Mg Capsule PO 40 mg DAILY ELISEO Administration Furosemide 60 mg 10/31/20 18:00 11/01/20 08:11 Furosemide 100 Mg/10 Ml Vial IVPUSH 60 mg BID@0900,1800 ELISEO Administration Protocol Gabapentin 400 mg 10/16/20 10:00 11/01/20 14:42 Gabapentin 400 Mg Capsule PO 400 mg TID ELISEO Administration Lorazepam 0.5 mg 10/29/20 13:34 11/01/20 08:13 Lorazepam 0.5 Mg Tablet PO 0.5 mg Q8H PRN Administration Anxiety Metolazone 5 mg 10/31/20 07:30 11/01/20 08:11 Metolazone 5 Mg Tablet PO 5 mg DAILY@0730 ELISEO Administration Miconazole Nitrate 1 appl 10/10/20 21:00 11/01/20 08:20 Miconazole 2 % Extra Thick Cr 56.7 Gm Tube TOPICAL 1 appl BID ELISEO Administration Protocol Mirtazapine 15 mg 10/31/20 21:00 10/31/20 21:35 Mirtazapine 15 Mg Tablet PO 15 mg BEDTIME ELISEO Administration Ondansetron HCl 4 mg 10/19/20 14:44 Ondansetron Hcl 4 Mg/2 Ml Vial IVPUSH Q8H PRN Nausea and Vomiting Phenazopyridine HCl 100 mg 10/31/20 10:10 11/01/20 15:52 Phenazopyridine Hcl 100 Mg Tablet PO 11/02/20 17:01 100 mg BIDWM ELISEO Administration Potassium Chloride 40 meq 11/01/20 14:00 11/01/20 14:42 Potassium Chloride Packet 20 Meq Packet PO 11/01/20 18:01 40 meq Q4H ELISEO Administration Prednisone 20 mg 10/31/20 09:00 11/01/20 08:11 Prednisone 20 Mg Tablet PO 20 mg DAILY ELISEO Administration Quetiapine Fumarate 100 mg 10/28/20 10:22 10/31/20 21:38 Quetiapine Fumarate 100 Mg Tablet PO 100 mg BEDTIME PRN Administration Restlessness Sodium Chloride 3 ml 10/19/20 16:00 11/01/20 15:35 0.9 % Sodium Chloride Flush 3 Ml Syringe IVFLUSH 3 ml QSHIFT ELISEO Administration Tizanidine HCl 4 mg 10/16/20 09:57 11/01/20 08:12 Tizanidine Hcl 4 Mg Tablet PO 4 mg Q8H PRN Administration muscle spasm Labs CBC & Chem 7: 10/29/20 08:48 11/01/20 11:39 Microbiology Microbiology Results: Microbiology 10/19/20 12:54 Blood - Venous Blood Culture - Final No growth after 5 days. 10/19/20 12:53 Blood - Venous Blood Culture - Final No growth after 5 days. 10/10/20 10:16 Blood - Venous Blood Culture - Final No growth after 5 days. 10/10/20 09:45 Blood - Venous Blood Culture - Final No growth after 5 days. Assessment and Plan (1) Acute respiratory failure with hypoxia: Status: Acute (2) Pulmonary embolism without acute cor pulmonale: Status: Acute (3) ILD (interstitial lung disease): Status: Acute (4) Depression: Status: Acute (5) Fluid overload: Status: Acute (6) Opioid use disorder, moderate, in controlled environment: Status: Acute Assessment and Plan: 60M presented with hypoxia while waiting in ED for placement found to have PE. acute hypoxic respiratory failure due to PE Eliquis 5mg bid duplex negative for dvt, echo with no RV strain Fluid overload Represents right-sided failure Negative BNP, echo showed normal EF History of tricuspid insufficiency, venous hypertension John catheter placed Lasix 60 mg b.i.d. To use metolazone in the morning Monitor intake and output, -6 L since yesterday ILD Workup in progress with pulmonology continue prednisone tapering dose, decreased to 20 Depression Suicidal ideation Plan to transfer to psychiatry postponed, will likely need inpatient psychiatry at a different facility as the patient is physically deconditioned To get psychiatry evaluation Physical deconditioning Secondary to prolonged hospital stay, fluid overload Physical therapy evaluation opoioid dependence suboxone hcv liver cirrhosis stable, outpatient follow up DVT PPX Eliquis
[2020-11-01] MEDS: Mirtazapine 15 MG TABLET PO (20:33)
[2020-11-02 03:49] VITALS: BP 116/66; PULSE 88; RESP 18; TEMP 37; O2SAT 92
[2020-11-02 07:31] LABS: Anion Gap 8 (12-20); Blood Urea Nitrogen 29 mg/dL (9-16); Calcium 8.7 mg/dL (8.4-10.2); Carbon Dioxide 36 mmol/L (22-29); Chloride 100 mmol/L (96-108); Creatinine Clr Calc Pharmacy 177.8; Estimated Glomerular Filt Rate > 60; Glucose Random 125 mg/dL (60-115); Potassium 2.9 mmol/L (3.3-5.1); Sodium 141 mmol/L (135-145)
[2020-11-02 07:43] VITALS: BP 132/79; PULSE 85; RESP 20; TEMP 36.8; O2SAT 95
[2020-11-02] MEDS: predniSONE 20 MG TABLET PO (08:53)
[2020-11-02] MEDS: acetaZOLAMIDE 250 MG TABLET 500 MG PO ×2 (08:54→20:39)
[2020-11-02] MEDS: Furosemide 100 MG/10 ML VIAL 60 MG IVPUSH ×2 (08:54→17:28)
[2020-11-02] MEDS: TiZANidine HCL 4 MG TABLET PO ×2 (08:54→20:41)
[2020-11-02] MEDS: Buprenorphine/Naloxone 4/1 mg FILM 1 FILM SUBLINGUAL ×2 (08:54→20:41)
[2020-11-02] MEDS: metOLazone 5 MG TABLET PO (08:54)
[2020-11-02] MEDS: Apixaban 5 MG TABLET PO ×2 (08:55→20:40)
[2020-11-02] MEDS: LORazepam 0.5 MG TABLET PO ×2 (08:55→20:40)
[2020-11-02] MEDS: Phenazopyridine HCL 100 MG TABLET PO ×2 (08:55→17:27)
[2020-11-02] MEDS: FLUoxetine HCl 20 MG CAPSULE 40 MG PO (08:55)
[2020-11-02] MEDS: Gabapentin 400 MG CAPSULE PO ×3 (08:55→20:41)
[2020-11-02] MEDS: Miconazole 2 % Extra Thick Cr 56.7 Gm Tube 1 APPL TOPICAL ×2 (08:57→20:42)
[2020-11-02] MEDS: 0.9 % Sodium Chloride Flush 3 ML SYRINGE IVFLUSH ×3 (09:11→20:48)
[2020-11-02 11:10] VITALS: BP 129/72; PULSE 86; RESP 20; TEMP 37.1; O2SAT 93
[2020-11-02] MEDS: Potassium Chloride/H20 10 MEQ/100 ML PIGGYBACK 100 MEQ IV ×2 (14:02→16:01)
[2020-11-02] MEDS: Potassium Chloride Packet 20 MEQ PACKET 40 MEQ PO ×4 (14:02→23:45)
--- NOTE | 2020-11-02 15:57 | HO.PM.IMPN ---
Subjective Subjective Date of Service: 11/02/20 Interval History: the patient was seen and evaluated this morning Laying in bed with no activities done Continue to improve edema in lower extremities and scrotum with IV Lasix and placing John catheter Denies any fever, chills or shortness of breath No reported other overnight events. Systemic review: No fever, chills but complaining of weakness No chest pain, palpitation Requiring oxygen to keep O2 sat in 90s, still have significant edema in his lower extremities No abdominal pain, nausea or vomiting No urinary symptoms No any rash or wounds Physical Exam Vital Signs: Vital Signs: Last Vital Signs Temp 98.7 F 11/02/20 11:10 Pulse 86 11/02/20 11:10 Resp 20 11/02/20 11:10 BP 129/72 11/02/20 11:10 Pulse Ox 93 11/02/20 11:10 Body Mass Index 33.5 Const: Other: Constitutional : Alert, oriented, not in distress Neck : Normal inspection, Supple Cardiovascular : RRR, S1 S2, +2 bilateral lower extremity edema around the knee level Respiratory : Decrease bilateral air entry, basal bilateral crackles, wheezes or rhonchi Gastrointestinal: soft, lax, Normal bowel sounds, Non tender Skin : Warm/Dry, enlarging scrotal edema hydrocele with no tenderness Neurological : Alert & oriented x3, No focal deficit Objective Data Current Medications Generic Name Dose Route Start Last Admin Trade Name Freq PRN Reason Stop Dose Admin Acetazolamide 500 mg 11/01/20 13:45 11/02/20 08:54 Acetazolamide 250 Mg Tablet PO 500 mg BID ELISEO Administration Apixaban 5 mg 10/28/20 21:00 11/02/20 08:55 Apixaban 5 Mg Tablet PO 5 mg BID ELISEO Administration Buprenorphine/Naloxone 1 film 10/11/20 09:30 11/02/20 08:54 Buprenorphine/Naloxone 4/1 Mg Film SUBLINGUAL 1 film BID ELISEO Administration Fluoxetine HCl 40 mg 10/10/20 18:30 11/02/20 08:55 Fluoxetine Hcl 20 Mg Capsule PO 40 mg DAILY ELISEO Administration Furosemide 60 mg 10/31/20 18:00 11/02/20 08:54 Furosemide 100 Mg/10 Ml Vial IVPUSH 60 mg BID@0900,1800 ELISEO Administration Protocol Gabapentin 400 mg 10/16/20 10:00 11/02/20 14:01 Gabapentin 400 Mg Capsule PO 400 mg TID ELISEO Administration Potassium Chloride 10 meq in 100 mls @ 100 mls/hr 11/02/20 14:00 11/02/20 14:02 IV 11/02/20 17:59 100 mls/hr Q1H ELISEO Administration Lorazepam 0.5 mg 10/29/20 13:34 11/02/20 08:55 Lorazepam 0.5 Mg Tablet PO 0.5 mg Q8H PRN Administration Anxiety Metolazone 5 mg 10/31/20 07:30 11/02/20 08:54 Metolazone 5 Mg Tablet PO 5 mg DAILY@0730 ELISEO Administration Miconazole Nitrate 1 appl 10/10/20 21:00 11/02/20 08:57 Miconazole 2 % Extra Thick Cr 56.7 Gm Tube TOPICAL 1 appl BID ELISEO Administration Protocol Mirtazapine 15 mg 10/31/20 21:00 11/01/20 20:33 Mirtazapine 15 Mg Tablet PO 15 mg BEDTIME ELISEO Administration Ondansetron HCl 4 mg 10/19/20 14:44 Ondansetron Hcl 4 Mg/2 Ml Vial IVPUSH Q8H PRN Nausea and Vomiting Phenazopyridine HCl 100 mg 10/31/20 10:10 11/02/20 08:55 Phenazopyridine Hcl 100 Mg Tablet PO 11/02/20 17:01 100 mg BIDWM ELISEO Administration Potassium Chloride 40 meq 11/02/20 14:00 11/02/20 14:02 Potassium Chloride Packet 20 Meq Packet PO 11/02/20 18:01 40 meq Q4H ELISEO Administration Prednisone 20 mg 10/31/20 09:00 11/02/20 08:53 Prednisone 20 Mg Tablet PO 20 mg DAILY ELISEO Administration Quetiapine Fumarate 100 mg 10/28/20 10:22 10/31/20 21:38 Quetiapine Fumarate 100 Mg Tablet PO 100 mg BEDTIME PRN Administration Restlessness Sodium Chloride 3 ml 10/19/20 16:00 11/02/20 09:11 0.9 % Sodium Chloride Flush 3 Ml Syringe IVFLUSH 3 ml QSHIFT ELISEO Administration Tizanidine HCl 4 mg 10/16/20 09:57 11/02/20 08:54 Tizanidine Hcl 4 Mg Tablet PO 4 mg Q8H PRN Administration muscle spasm Labs CBC & Chem 7: 10/29/20 08:48 11/02/20 05:49 Microbiology Microbiology Results: Microbiology 10/19/20 12:54 Blood - Venous Blood Culture - Final No growth after 5 days. 10/19/20 12:53 Blood - Venous Blood Culture - Final No growth after 5 days. 10/10/20 10:16 Blood - Venous Blood Culture - Final No growth after 5 days. 10/10/20 09:45 Blood - Venous Blood Culture - Final No growth after 5 days. Assessment and Plan (1) Acute respiratory failure with hypoxia: Status: Acute (2) Pulmonary embolism without acute cor pulmonale: Status: Acute (3) ILD (interstitial lung disease): Status: Acute (4) Depression: Status: Acute (5) Fluid overload: Status: Acute (6) Opioid use disorder, moderate, in controlled environment: Status: Acute Assessment and Plan: 60M presented with hypoxia while waiting in ED for placement found to have PE. acute hypoxic respiratory failure due to PE Eliquis 5mg bid duplex negative for dvt, echo with no RV strain Acute on chronic diastolic CHF Negative BNP, echo showed normal EF with RV dysfunction History of tricuspid insufficiency, venous hypertension John catheter placed Continue IV Lasix 60 mg b.i.d. To use metolazone in the morning Monitor intake and output, -9 L since yesterday Hypokalemia Potassium 2.9 this morning to give 40 mEq IV to give 40 mEq p.o. b.i.d. for 2 doses Monitor BMP ILD Workup in progress with pulmonology continue prednisone tapering dose, decreased to 20 day 3, to decrease Depression Suicidal ideation Plan to transfer to psychiatry postponed, will likely need inpatient psychiatry at a different facility as the patient is physically deconditioned psychiatry evaluation, increase mirtazapine, plan to transfer to psych floor upon discharge Physical deconditioning Secondary to prolonged hospital stay, fluid overload Physical therapy evaluation opoioid dependence suboxone hcv liver cirrhosis stable, outpatient follow up DVT PPX Eliquis
[2020-11-02 16:00] VITALS: BP 115/65; PULSE 85; RESP 20; TEMP 36.6; O2SAT 95
[2020-11-02 19:26] VITALS: BP 125/72; PULSE 80; RESP 18; TEMP 36.8; O2SAT 93
[2020-11-02] MEDS: QUEtiapine Fumarate 100 MG TABLET PO (20:40)
[2020-11-02] MEDS: Mirtazapine 15 MG TABLET PO (20:41)
[2020-11-02 23:23] VITALS: BP 108/65; PULSE 80; RESP 15; TEMP 36.9; O2SAT 92
[2020-11-03 04:00] VITALS: BP 112/63; PULSE 75; RESP 17; TEMP 36.9; O2SAT 92
[2020-11-03 07:23] LABS: B Type Natriuretic Peptide < 10 pg/mL (<100)
[2020-11-03 08:00] VITALS: BP 123/67; PULSE 83; RESP 20; TEMP 36.7; O2SAT 91
[2020-11-03 08:03] LABS: Anion Gap 11 (12-20); Blood Urea Nitrogen 25 mg/dL (9-16); Calcium 8.9 mg/dL (8.4-10.2); Carbon Dioxide 29 mmol/L (22-29); Chloride 103 mmol/L (96-108); Creatinine Clr Calc Pharmacy 184.2; Estimated Glomerular Filt Rate > 60; Glucose Random 109 mg/dL (60-115); Potassium 2.5 mmol/L (3.3-5.1); Sodium 140 mmol/L (135-145)
[2020-11-03 08:15] LABS: Magnesium 1.7 mg/dL (1.6-2.6)
[2020-11-03] MEDS: Buprenorphine/Naloxone 4/1 mg FILM 1 FILM SUBLINGUAL ×2 (09:58→20:04)
[2020-11-03] MEDS: 0.9 % Sodium Chloride Flush 3 ML SYRINGE IVFLUSH ×2 (09:58→20:04)
[2020-11-03] MEDS: FLUoxetine HCl 20 MG CAPSULE 40 MG PO (09:58)
[2020-11-03] MEDS: metOLazone 5 MG TABLET PO (09:59)
[2020-11-03] MEDS: Gabapentin 400 MG CAPSULE PO ×3 (09:59→20:04)
[2020-11-03] MEDS: predniSONE 20 MG TABLET PO (09:59)
[2020-11-03] MEDS: Furosemide 100 MG/10 ML VIAL 60 MG IVPUSH (09:59)
[2020-11-03] MEDS: acetaZOLAMIDE 250 MG TABLET 500 MG PO (10:00)
[2020-11-03] MEDS: Apixaban 5 MG TABLET PO ×2 (10:02→20:04)
[2020-11-03] MEDS: Potassium Chloride ER 20 MEQ TAB.ER.PRT 40 MEQ PO (10:03)
[2020-11-03] MEDS: Potassium Chloride ER 20 MEQ TAB.ER.PRT PO (10:03)
[2020-11-03 11:35] VITALS: BP 141/82; PULSE 93; RESP 20; TEMP 36.8; O2SAT 91
--- NOTE | 2020-11-03 14:28 | HO.PM.IMPN ---
Subjective Subjective Date of Service: 11/03/20 Interval History: weak Cardiovascular Cardiovascular: Reports no additional cardiovascular complaints Gastrointestinal Gastrointestinal: Reports no additional gastrointestinal complaints Physical Exam Vital Signs: Vital Signs: Last Vital Signs Temp 98.3 F 11/03/20 11:35 Pulse 93 11/03/20 11:35 Resp 20 11/03/20 11:35 BP 141/82 H 11/03/20 11:35 Pulse Ox 91 L 11/03/20 11:35 Body Mass Index 33.5 General: AO X 3, ill appearing Resp: diminiushed CVS: S1,S2,RRR GI: soft, non tender, non distended Neuro: motor grossly intact Psych: appropriate affect Objective Data Current Medications Generic Name Dose Route Start Last Admin Trade Name Freq PRN Reason Stop Dose Admin Apixaban 5 mg 10/28/20 21:00 11/03/20 10:02 Apixaban 5 Mg Tablet PO 5 mg BID ELISEO Administration Buprenorphine/Naloxone 1 film 10/11/20 09:30 11/03/20 09:58 Buprenorphine/Naloxone 4/1 Mg Film SUBLINGUAL 1 film BID ELISEO Administration Fluoxetine HCl 40 mg 10/10/20 18:30 11/03/20 09:58 Fluoxetine Hcl 20 Mg Capsule PO 40 mg DAILY ELISEO Administration Furosemide 60 mg 10/31/20 18:00 11/03/20 09:59 Furosemide 100 Mg/10 Ml Vial IVPUSH 60 mg BID@0900,1800 ELISEO Administration Protocol Gabapentin 400 mg 10/16/20 10:00 11/03/20 14:22 Gabapentin 400 Mg Capsule PO 400 mg TID ELISEO Administration Lorazepam 0.5 mg 10/29/20 13:34 11/02/20 20:40 Lorazepam 0.5 Mg Tablet PO 0.5 mg Q8H PRN Administration Anxiety Magnesium Oxide 400 mg 11/03/20 17:30 Magnesium Oxide 400 Mg Tablet PO BIDPC ELISEO Metolazone 5 mg 10/31/20 07:30 11/03/20 09:59 Metolazone 5 Mg Tablet PO 5 mg DAILY@0730 ELISEO Administration Miconazole Nitrate 1 appl 10/10/20 21:00 11/03/20 10:03 Miconazole 2 % Extra Thick Cr 56.7 Gm Tube TOPICAL Not Given BID ELISEO Protocol Mirtazapine 15 mg 10/31/20 21:00 11/02/20 20:41 Mirtazapine 15 Mg Tablet PO 15 mg BEDTIME ELISEO Administration Ondansetron HCl 4 mg 10/19/20 14:44 Ondansetron Hcl 4 Mg/2 Ml Vial IVPUSH Q8H PRN Nausea and Vomiting Prednisone 20 mg 10/31/20 09:00 11/03/20 09:59 Prednisone 20 Mg Tablet PO 20 mg DAILY ELISEO Administration Quetiapine Fumarate 100 mg 10/28/20 10:22 11/02/20 20:40 Quetiapine Fumarate 100 Mg Tablet PO 100 mg BEDTIME PRN Administration Restlessness Sodium Chloride 3 ml 10/19/20 16:00 11/03/20 09:58 0.9 % Sodium Chloride Flush 3 Ml Syringe IVFLUSH 3 ml QSHIFT ELISEO Administration Tizanidine HCl 4 mg 10/16/20 09:57 11/02/20 20:41 Tizanidine Hcl 4 Mg Tablet PO 4 mg Q8H PRN Administration muscle spasm Labs CBC & Chem 7: 10/29/20 08:48 11/03/20 04:50 Microbiology Microbiology Results: Microbiology 10/19/20 12:54 Blood - Venous Blood Culture - Final No growth after 5 days. 10/19/20 12:53 Blood - Venous Blood Culture - Final No growth after 5 days. 10/10/20 10:16 Blood - Venous Blood Culture - Final No growth after 5 days. 10/10/20 09:45 Blood - Venous Blood Culture - Final No growth after 5 days. Assessment and Plan (1) Acute respiratory failure with hypoxia: Status: Acute (2) Pulmonary embolism without acute cor pulmonale: Status: Acute (3) ILD (interstitial lung disease): Status: Acute (4) Depression: Status: Acute (5) Fluid overload: Status: Acute (6) Opioid use disorder, moderate, in controlled environment: Status: Acute Assessment and Plan: 60M presented with hypoxia while waiting in ED for placement found to have PE. acute hypoxic respiratory failure due to PE Eliquis 5mg bid duplex negative for dvt, echo with no RV strain Acute on chronic diastolic CHF Negative BNP, echo showed normal EF with RV dysfunction History of tricuspid insufficiency, venous hypertension John catheter placed Continue IV Lasix 60 mg b.i.d. To use metolazone daily Monitor intake and output, -9 L since yesterday Hypokalemia Potassium 2.5 this morning replace and monitor ILD continue prednisone tapering dose, Depression Suicidal ideation Plan to transfer to psychiatry postponed, will likely need inpatient psychiatry at a different facility as the patient is physically deconditioned psychiatry evaluation, increase mirtazapine, plan to transfer to psych floor upon discharge Physical deconditioning Secondary to prolonged hospital stay, fluid overload Physical therapy evaluation opoioid dependence suboxone hcv liver cirrhosis stable, outpatient follow up DVT PPX Eliquis
--- NOTE | 2020-11-03 15:33 | MHC.CM.PN ---
EMR REVIEWED, CONT'S ON O2 3-5.5L NC FOR LAST FEW DAYS, PER HOSPITALIST WILL CONT TO DIURESE PT, NO D/C PLANNED FOR TODAY, ? IF PT WOULD BE APPROPRAITE FOR [facility] ONCE MEDICALLY CLEARED. CM TO CONT TO FOLLOW
[2020-11-03 15:54] VITALS: BP 146/85; PULSE 98; RESP 18; TEMP 36.7; O2SAT 95
[2020-11-03] MEDS: Magnesium Oxide 400 MG TABLET PO (18:02)
[2020-11-03] MEDS: Furosemide 40 MG TABLET PO (18:23)
--- NOTE | 2020-11-03 18:30 | PC.NURSE ---
Pt refused IV Lasix stating it faye too much going through the IV . Pt educated on importance of taking the Lasix and reminded that the edema to his legs and scrotum had improved since he had started receiving it again. Pt still refusing IV Lasix but agreeable to PO. notified and order changed from 60mg IV Lasix BID to 40mg PO Lasix BID. Pt took PO Lasix without issue.
[2020-11-03 19:59] VITALS: BP 143/88; PULSE 92; RESP 16; TEMP 36.9; O2SAT 96
[2020-11-03] MEDS: LORazepam 0.5 MG TABLET PO (20:04)
[2020-11-03] MEDS: Mirtazapine 15 MG TABLET PO (20:04)
[2020-11-03] MEDS: QUEtiapine Fumarate 100 MG TABLET PO (20:04)
[2020-11-03] MEDS: TiZANidine HCL 4 MG TABLET PO (20:04)
[2020-11-04] VITALS (7 sets, daily range): BP systolic 108–142; BP diastolic 67–92; PULSE 75–93; RESP 18–20; TEMP 36.3–37; O2SAT 90–96
[2020-11-04 05:09] LABS: Hematocrit 36.3 % (42-52); Mean Corpuscular HGB Conc 33.1 g/dl (31.0-36.0); Mean Corpuscular Hemoglobin 29.4 pg (27.0-33.0); Mean Platelet Volume 10.3 fL (9.4-12.4); Platelet Count 279 X10*3/uL (160-400); Red Blood Count 4.08 X10*6/uL (4.60-5.80); Red Cell Distribution Width 18.5 % (11.0-16.0); White Blood Count 15.7 X10*3/uL (4.8-10.8)
[2020-11-04 05:55] LABS: Anion Gap 13 (12-20); Blood Urea Nitrogen 31 mg/dL (9-16); Calcium 9.1 mg/dL (8.4-10.2); Carbon Dioxide 29 mmol/L (22-29); Chloride 102 mmol/L (96-108); Creatinine Clr Calc Pharmacy 171.9; Estimated Glomerular Filt Rate > 60; Glucose Fasting 101 mg/dL (60-99); Magnesium 2.1 mg/dL (1.6-2.6); Sodium 141 mmol/L (135-145)
[2020-11-04] MEDS: KCl 40 mEq in 5% Dex/0.9% Sod 40 MEQ/1,000 ML IV.SOLN 100 MEQ IVCONT (06:10)
[2020-11-04] MEDS: Potassium Chloride Packet 20 MEQ PACKET 40 MEQ PO (06:10)
--- NOTE | 2020-11-04 06:18 | PC.NURSE ---
Critical K+ 2.5. notified. Orders for 40 meq PO Klor-con and D5NS w/ 40 meq KCL @ 100 mL/hr. Pt willing to take PO replacement but refusing IVF. Pt educated on importance, continues to adamantly refuse. Will try to encourage and pass along.
[2020-11-04 06:21] LABS: Potassium 2.5 mmol/L (3.3-5.1)
[2020-11-04] MEDS: Magnesium Oxide 400 MG TABLET PO ×2 (08:36→18:00)
[2020-11-04] MEDS: FLUoxetine HCl 20 MG CAPSULE 40 MG PO (08:36)
[2020-11-04] MEDS: predniSONE 20 MG TABLET PO (08:37)
[2020-11-04] MEDS: Apixaban 5 MG TABLET PO ×2 (08:37→20:33)
[2020-11-04] MEDS: Furosemide 40 MG TABLET PO ×2 (08:37→18:00)
[2020-11-04] MEDS: metOLazone 5 MG TABLET PO (08:37)
[2020-11-04] MEDS: Buprenorphine/Naloxone 4/1 mg FILM 1 FILM SUBLINGUAL ×2 (08:37→20:33)
[2020-11-04] MEDS: 0.9 % Sodium Chloride Flush 3 ML SYRINGE IVFLUSH ×2 (08:37→18:01)
[2020-11-04] MEDS: Gabapentin 400 MG CAPSULE PO ×3 (08:37→20:32)
--- NOTE | 2020-11-04 12:01 | HO.PM.IMPN ---
Subjective Subjective Date of Service: 11/04/20 Interval History: weak Cardiovascular Cardiovascular: Reports no additional cardiovascular complaints Genitourinary Genitourinary: Reports no additional male genitourinary complaints Physical Exam Vital Signs: Vital Signs: Last Vital Signs Temp 98.4 F 11/04/20 11:13 Pulse 81 11/04/20 11:13 Resp 20 11/04/20 11:13 BP 134/79 11/04/20 11:13 Pulse Ox 90 L 11/04/20 11:13 Body Mass Index 33.5 General: AO X 3, ill appearing Resp: diminiushed CVS: S1,S2,RRR GI: soft, non tender, non distended Neuro: motor grossly intact Psych: appropriate affect Objective Data Current Medications Generic Name Dose Route Start Last Admin Trade Name Freq PRN Reason Stop Dose Admin Apixaban 5 mg 10/28/20 21:00 11/04/20 08:37 Apixaban 5 Mg Tablet PO 5 mg BID ELISEO Administration Buprenorphine/Naloxone 1 film 10/11/20 09:30 11/04/20 08:37 Buprenorphine/Naloxone 4/1 Mg Film SUBLINGUAL 1 film BID ELISEO Administration Fluoxetine HCl 40 mg 10/10/20 18:30 11/04/20 08:36 Fluoxetine Hcl 20 Mg Capsule PO 40 mg DAILY ELISEO Administration Furosemide 40 mg 11/03/20 18:15 11/04/20 08:37 Furosemide 40 Mg Tablet PO 40 mg BID@0900,1800 ELISEO Administration Protocol Gabapentin 400 mg 10/16/20 10:00 11/04/20 08:37 Gabapentin 400 Mg Capsule PO 400 mg TID ELISEO Administration Lorazepam 0.5 mg 10/29/20 13:34 11/03/20 20:04 Lorazepam 0.5 Mg Tablet PO 0.5 mg Q8H PRN Administration Anxiety Magnesium Oxide 400 mg 11/03/20 17:30 11/04/20 08:36 Magnesium Oxide 400 Mg Tablet PO 400 mg BIDPC ELISEO Administration Miconazole Nitrate 1 appl 10/10/20 21:00 11/04/20 08:55 Miconazole 2 % Extra Thick Cr 56.7 Gm Tube TOPICAL Not Given BID ELISEO Protocol Mirtazapine 15 mg 10/31/20 21:00 11/03/20 20:04 Mirtazapine 15 Mg Tablet PO 15 mg BEDTIME ELISEO Administration Ondansetron HCl 4 mg 10/19/20 14:44 Ondansetron Hcl 4 Mg/2 Ml Vial IVPUSH Q8H PRN Nausea and Vomiting Potassium Chloride 40 meq 11/04/20 14:00 Potassium Chloride Er 20 Meq Tab.Er.Prt PO 11/04/20 14:01 ONCE ONE Prednisone 20 mg 10/31/20 09:00 11/04/20 08:37 Prednisone 20 Mg Tablet PO 20 mg DAILY ELISEO Administration Quetiapine Fumarate 100 mg 10/28/20 10:22 11/03/20 20:04 Quetiapine Fumarate 100 Mg Tablet PO 100 mg BEDTIME PRN Administration Restlessness Sodium Chloride 3 ml 10/19/20 16:00 11/04/20 08:37 0.9 % Sodium Chloride Flush 3 Ml Syringe IVFLUSH 3 ml QSHIFT ELISEO Administration Tizanidine HCl 4 mg 10/16/20 09:57 11/03/20 20:04 Tizanidine Hcl 4 Mg Tablet PO 4 mg Q8H PRN Administration muscle spasm Labs CBC & Chem 7: 11/04/20 04:06 11/04/20 04:06 Microbiology Microbiology Results: Microbiology 10/19/20 12:54 Blood - Venous Blood Culture - Final No growth after 5 days. 10/19/20 12:53 Blood - Venous Blood Culture - Final No growth after 5 days. 10/10/20 10:16 Blood - Venous Blood Culture - Final No growth after 5 days. 10/10/20 09:45 Blood - Venous Blood Culture - Final No growth after 5 days. Assessment and Plan (1) Acute respiratory failure with hypoxia: Status: Acute (2) Pulmonary embolism without acute cor pulmonale: Status: Acute (3) ILD (interstitial lung disease): Status: Acute (4) Depression: Status: Acute (5) Fluid overload: Status: Acute (6) Opioid use disorder, moderate, in controlled environment: Status: Acute Assessment and Plan: 60M presented with hypoxia while waiting in ED for placement found to have PE. acute hypoxic respiratory failure due to PE Eliquis 5mg bid duplex negative for dvt, echo with no RV strain Acute on chronic diastolic CHF Negative BNP, echo showed normal EF with RV dysfunction History of tricuspid insufficiency, venous hypertension John catheter placed diuresed well, will change to po lasix 40mg bid dc metolazone Hypokalemia Potassium 2.5 again this morning replace and monitor ILD continue prednisone tapering dose, Depression Suicidal ideation Plan to transfer to psychiatry postponed, will likely need inpatient psychiatry at a different facility as the patient is physically deconditioned psychiatry evaluation, increased mirtazapine, plan to transfer to psych floor upon discharge Physical deconditioning Secondary to prolonged hospital stay, fluid overload Physical therapy evaluation opoioid dependence suboxone hcv liver cirrhosis stable, outpatient follow up DVT PPX Eliquis
[2020-11-04] MEDS: Potassium Chloride ER 20 MEQ TAB.ER.PRT 40 MEQ PO (14:00)
[2020-11-04] MEDS: LORazepam 0.5 MG TABLET PO (20:32)
[2020-11-04] MEDS: QUEtiapine Fumarate 100 MG TABLET PO (20:32)
[2020-11-04] MEDS: TiZANidine HCL 4 MG TABLET PO (20:32)
[2020-11-04] MEDS: Mirtazapine 15 MG TABLET PO (20:40)
[2020-11-05 03:17] VITALS: BP 132/66; PULSE 85; RESP 18; TEMP 36.6; O2SAT 94
[2020-11-05 08:00] VITALS: BP 131/76; PULSE 84; RESP 20; TEMP 36.1; O2SAT 98
[2020-11-05] MEDS: LORazepam 0.5 MG TABLET PO ×2 (08:51→20:05)
[2020-11-05] MEDS: Magnesium Oxide 400 MG TABLET PO ×2 (08:51→16:20)
[2020-11-05] MEDS: Apixaban 5 MG TABLET PO ×2 (08:51→20:05)
[2020-11-05] MEDS: FLUoxetine HCl 20 MG CAPSULE 40 MG PO (08:51)
[2020-11-05] MEDS: Furosemide 40 MG TABLET PO ×2 (08:51→17:09)
[2020-11-05] MEDS: predniSONE 20 MG TABLET PO (08:51)
[2020-11-05] MEDS: TiZANidine HCL 4 MG TABLET PO ×2 (08:52→20:05)
[2020-11-05] MEDS: 0.9 % Sodium Chloride Flush 3 ML SYRINGE IVFLUSH ×2 (08:52→20:06)
[2020-11-05] MEDS: Gabapentin 400 MG CAPSULE PO ×3 (08:52→20:05)
[2020-11-05] MEDS: Buprenorphine/Naloxone 4/1 mg FILM 1 FILM SUBLINGUAL ×2 (08:55→20:06)
[2020-11-05 09:20] LABS: Anion Gap 13 (12-20); Blood Urea Nitrogen 32 mg/dL (9-16); Calcium 8.8 mg/dL (8.4-10.2); Carbon Dioxide 35 mmol/L (22-29); Chloride 97 mmol/L (96-108); Creatinine Clr Calc Pharmacy 169.1; Estimated Glomerular Filt Rate > 60; Glucose Fasting 108 mg/dL (60-99); Potassium 2.7 mmol/L (3.3-5.1); Sodium 142 mmol/L (135-145)
--- NOTE | 2020-11-05 11:24 | HO.PM.IMPN ---
Subjective Subjective Date of Service: 11/05/20 Interval History: a bit stronger than yesterday Cardiovascular Cardiovascular: Reports no additional cardiovascular complaints Gastrointestinal Gastrointestinal: Reports no additional gastrointestinal complaints Physical Exam Vital Signs: Vital Signs: Last Vital Signs Temp 96.9 F 11/05/20 08:00 Pulse 84 11/05/20 08:00 Resp 20 11/05/20 08:00 BP 131/76 11/05/20 08:00 Pulse Ox 98 11/05/20 08:00 Body Mass Index 33.5 General: AO X 3, ill appearing Resp: diminiushed CVS: S1,S2,RRR GI: soft, non tender, non distended Neuro: motor grossly intact Psych: appropriate affect Objective Data Current Medications Generic Name Dose Route Start Last Admin Trade Name Freq PRN Reason Stop Dose Admin Apixaban 5 mg 10/28/20 21:00 11/05/20 08:51 Apixaban 5 Mg Tablet PO 5 mg BID ELISEO Administration Buprenorphine/Naloxone 1 film 10/11/20 09:30 11/05/20 08:55 Buprenorphine/Naloxone 4/1 Mg Film SUBLINGUAL 1 film BID ELISEO Administration Fluoxetine HCl 40 mg 10/10/20 18:30 11/05/20 08:51 Fluoxetine Hcl 20 Mg Capsule PO 40 mg DAILY ELISEO Administration Furosemide 40 mg 11/03/20 18:15 11/05/20 08:51 Furosemide 40 Mg Tablet PO 40 mg BID@0900,1800 ELISEO Administration Protocol Gabapentin 400 mg 10/16/20 10:00 11/05/20 08:52 Gabapentin 400 Mg Capsule PO 400 mg TID ELISEO Administration Lorazepam 0.5 mg 10/29/20 13:34 11/05/20 08:51 Lorazepam 0.5 Mg Tablet PO 0.5 mg Q8H PRN Administration Anxiety Magnesium Oxide 400 mg 11/03/20 17:30 11/05/20 08:51 Magnesium Oxide 400 Mg Tablet PO 400 mg BIDPC ELISEO Administration Miconazole Nitrate 1 appl 10/10/20 21:00 11/05/20 10:07 Miconazole 2 % Extra Thick Cr 56.7 Gm Tube TOPICAL Not Given BID ELISEO Protocol Mirtazapine 15 mg 10/31/20 21:00 11/04/20 20:40 Mirtazapine 15 Mg Tablet PO 15 mg BEDTIME ELISEO Administration Ondansetron HCl 4 mg 10/19/20 14:44 Ondansetron Hcl 4 Mg/2 Ml Vial IVPUSH Q8H PRN Nausea and Vomiting Prednisone 20 mg 10/31/20 09:00 11/05/20 08:51 Prednisone 20 Mg Tablet PO 20 mg DAILY ELISEO Administration Quetiapine Fumarate 100 mg 10/28/20 10:22 11/04/20 20:32 Quetiapine Fumarate 100 Mg Tablet PO 100 mg BEDTIME PRN Administration Restlessness Sodium Chloride 3 ml 10/19/20 16:00 11/05/20 08:52 0.9 % Sodium Chloride Flush 3 Ml Syringe IVFLUSH 3 ml QSHIFT ELISEO Administration Tizanidine HCl 4 mg 10/16/20 09:57 11/05/20 08:52 Tizanidine Hcl 4 Mg Tablet PO 4 mg Q8H PRN Administration muscle spasm Labs CBC & Chem 7: 11/04/20 04:06 11/05/20 08:16 Microbiology Microbiology Results: Microbiology 10/19/20 12:54 Blood - Venous Blood Culture - Final No growth after 5 days. 10/19/20 12:53 Blood - Venous Blood Culture - Final No growth after 5 days. 10/10/20 10:16 Blood - Venous Blood Culture - Final No growth after 5 days. 10/10/20 09:45 Blood - Venous Blood Culture - Final No growth after 5 days. Assessment and Plan (1) Acute respiratory failure with hypoxia: Status: Acute (2) Pulmonary embolism without acute cor pulmonale: Status: Acute (3) ILD (interstitial lung disease): Status: Acute (4) Depression: Status: Acute (5) Fluid overload: Status: Acute (6) Opioid use disorder, moderate, in controlled environment: Status: Acute Assessment and Plan: 60M presented with hypoxia while waiting in ED for placement found to have PE. acute hypoxic respiratory failure due to PE Eliquis 5mg bid duplex negative for dvt, echo with no RV strain Acute on chronic diastolic CHF Negative BNP, echo showed normal EF with RV dysfunction History of tricuspid insufficiency, venous hypertension John catheter placed diuresed well, changed to po lasix 40mg bid off metolazone Hypokalemia Potassium 2.7 this morning replace and monitor ILD continue prednisone tapering dose, Depression Suicidal ideation Plan to transfer to psychiatry postponed, will likely need inpatient psychiatry at a different facility as the patient is physically deconditioned psychiatry evaluation, increased mirtazapine, plan to transfer to psych floor upon discharge Physical deconditioning Secondary to prolonged hospital stay, fluid overload Physical therapy evaluation opoioid dependence suboxone hcv liver cirrhosis stable, outpatient follow up DVT PPX Elipeteris
[2020-11-05] MEDS: Potassium Chloride ER 20 MEQ TAB.ER.PRT 40 MEQ PO ×2 (11:53→20:06)
[2020-11-05 11:54] VITALS: BP 107/70; PULSE 80; RESP 20; TEMP 35.9; O2SAT 96
--- NOTE | 2020-11-05 15:15 | MHC.CM.PN ---
EMR REVIEWED, POTASSIUM REMAINS LOW 2.7 THIS MORNING, REPLACEMENT ORDERED, ONCE MEDICALLY CLEARED PT WILL NEED BHN & CARE TEAM REFERRALS, PT NOT APPROPRIATE FOR [facility] DUE TO MEDICAL NEEDS, POSSIBLE CANDIDATE FOR [facility] PLACEMENT, CM WILL CONT TO FOLLOW D/C NEEDS.
[2020-11-05 15:45] VITALS: BP 113/65; PULSE 79; RESP 19; TEMP 36.1; O2SAT 95
[2020-11-05 19:30] VITALS: BP 132/82; PULSE 88; RESP 19; TEMP 36.2; O2SAT 96
[2020-11-05] MEDS: QUEtiapine Fumarate 100 MG TABLET PO (20:05)
[2020-11-05] MEDS: Mirtazapine 15 MG TABLET PO (20:05)
[2020-11-06 03:34] VITALS: BP 109/76; PULSE 77; RESP 18; TEMP 36.8; O2SAT 98
--- NOTE | 2020-11-06 05:56 | PC.NURSE ---
Patient non-compliant and refusing care. Patient refused midnight vitals stating he wants to be left alone and just sleep . Patient refusing to be repositioned and refusing to comply with fluid restriction. Educated patient on the importance of being repositioning and maintaining a fluid restriction. Patient is uninterested in being educated and complying with care.
[2020-11-06 07:48] VITALS: BP 132/72; PULSE 77; RESP 18; TEMP 36.2; O2SAT 93
[2020-11-06] MEDS: Gabapentin 400 MG CAPSULE PO ×3 (09:02→21:18)
[2020-11-06] MEDS: FLUoxetine HCl 20 MG CAPSULE 40 MG PO (09:02)
[2020-11-06] MEDS: TiZANidine HCL 4 MG TABLET PO ×2 (09:02→21:18)
[2020-11-06] MEDS: Apixaban 5 MG TABLET PO ×2 (09:02→21:18)
[2020-11-06] MEDS: Buprenorphine/Naloxone 4/1 mg FILM 1 FILM SUBLINGUAL ×2 (09:02→21:17)
[2020-11-06] MEDS: Furosemide 40 MG TABLET PO (09:02)
[2020-11-06] MEDS: Magnesium Oxide 400 MG TABLET PO ×2 (09:02→16:00)
[2020-11-06] MEDS: predniSONE 20 MG TABLET PO (09:02)
[2020-11-06] MEDS: LORazepam 0.5 MG TABLET PO ×2 (09:02→21:18)
[2020-11-06] MEDS: Miconazole 2 % Extra Thick Cr 56.7 Gm Tube 1 APPL TOPICAL (09:03)
[2020-11-06] MEDS: 0.9 % Sodium Chloride Flush 3 ML SYRINGE IVFLUSH ×3 (09:04→21:19)
[2020-11-06 10:54] LABS: Anion Gap 8 (12-20); Blood Urea Nitrogen 31 mg/dL (9-16); Carbon Dioxide 40 mmol/L (22-29); Chloride 93 mmol/L (96-108); Estimated Glomerular Filt Rate > 60; Glucose Fasting 94 mg/dL (60-99); Potassium 2.7 mmol/L (3.3-5.1); Sodium 138 mmol/L (135-145)
[2020-11-06] MEDS: Spironolactone 25 MG TABLET PO (10:57)
--- NOTE | 2020-11-06 11:34 | HO.PM.IMPN ---
Subjective Subjective Date of Service: 11/06/20 Interval History: weak Cardiovascular Cardiovascular: Reports no additional cardiovascular complaints Gastrointestinal Gastrointestinal: Reports no additional gastrointestinal complaints Physical Exam Vital Signs: Vital Signs: Last Vital Signs Temp 97.2 F 11/06/20 07:48 Pulse 77 11/06/20 07:48 Resp 18 11/06/20 07:48 BP 132/72 11/06/20 07:48 Pulse Ox 93 11/06/20 07:48 Body Mass Index 33.5 General: AO X 3, ill appearing Resp: diminiushed CVS: S1,S2,RRR GI: soft, non tender, non distended Neuro: motor grossly intact Psych: appropriate affect Objective Data Current Medications Generic Name Dose Route Start Last Admin Trade Name Freq PRN Reason Stop Dose Admin Acetazolamide 250 mg 11/06/20 15:00 Acetazolamide 250 Mg Tablet PO TID ELISEO Apixaban 5 mg 10/28/20 21:00 11/06/20 09:02 Apixaban 5 Mg Tablet PO 5 mg BID ELISEO Administration Buprenorphine/Naloxone 1 film 10/11/20 09:30 11/06/20 09:02 Buprenorphine/Naloxone 4/1 Mg Film SUBLINGUAL 1 film BID ELISEO Administration Fluoxetine HCl 40 mg 10/10/20 18:30 11/06/20 09:02 Fluoxetine Hcl 20 Mg Capsule PO 40 mg DAILY ELISEO Administration Gabapentin 400 mg 10/16/20 10:00 11/06/20 09:02 Gabapentin 400 Mg Capsule PO 400 mg TID ELISEO Administration Lorazepam 0.5 mg 10/29/20 13:34 11/06/20 09:02 Lorazepam 0.5 Mg Tablet PO 0.5 mg Q8H PRN Administration Anxiety Magnesium Oxide 400 mg 11/03/20 17:30 11/06/20 09:02 Magnesium Oxide 400 Mg Tablet PO 400 mg BIDPC ELISEO Administration Miconazole Nitrate 1 appl 10/10/20 21:00 11/06/20 09:03 Miconazole 2 % Extra Thick Cr 56.7 Gm Tube TOPICAL 1 appl BID ELISEO Administration Protocol Mirtazapine 15 mg 10/31/20 21:00 11/05/20 20:05 Mirtazapine 15 Mg Tablet PO 15 mg BEDTIME ELISEO Administration Ondansetron HCl 4 mg 10/19/20 14:44 Ondansetron Hcl 4 Mg/2 Ml Vial IVPUSH Q8H PRN Nausea and Vomiting Prednisone 20 mg 10/31/20 09:00 11/06/20 09:02 Prednisone 20 Mg Tablet PO 20 mg DAILY ELISEO Administration Quetiapine Fumarate 100 mg 10/28/20 10:22 11/05/20 20:05 Quetiapine Fumarate 100 Mg Tablet PO 100 mg BEDTIME PRN Administration Restlessness Sodium Chloride 3 ml 10/19/20 16:00 11/06/20 09:04 0.9 % Sodium Chloride Flush 3 Ml Syringe IVFLUSH 3 ml QSHIFT ELISEO Administration Spironolactone 25 mg 11/06/20 09:50 11/06/20 10:57 Spironolactone 25 Mg Tablet PO 25 mg DAILY ELISEO Administration Protocol Tizanidine HCl 4 mg 10/16/20 09:57 11/06/20 09:02 Tizanidine Hcl 4 Mg Tablet PO 4 mg Q8H PRN Administration muscle spasm Labs CBC & Chem 7: 11/04/20 04:06 11/06/20 10:14 Microbiology Microbiology Results: Microbiology 10/19/20 12:54 Blood - Venous Blood Culture - Final No growth after 5 days. 10/19/20 12:53 Blood - Venous Blood Culture - Final No growth after 5 days. 10/10/20 10:16 Blood - Venous Blood Culture - Final No growth after 5 days. 10/10/20 09:45 Blood - Venous Blood Culture - Final No growth after 5 days. Assessment and Plan (1) Acute respiratory failure with hypoxia: Status: Acute (2) Pulmonary embolism without acute cor pulmonale: Status: Acute (3) ILD (interstitial lung disease): Status: Acute (4) Depression: Status: Acute (5) Fluid overload: Status: Acute (6) Opioid use disorder, moderate, in controlled environment: Status: Acute Assessment and Plan: 60M presented with hypoxia while waiting in ED for placement found to have PE. acute hypoxic respiratory failure due to PE Eliquis 5mg bid duplex negative for dvt, echo with no RV strain Acute on chronic diastolic CHF Negative BNP, echo showed normal EF with RV dysfunction History of tricuspid insufficiency, venous hypertension John catheter placed diuresed well, changed to po lasix 40mg bid (now on hold) off metolazone Hypokalemia Potassium 2.7 again this morning replace and monitor will add aldactone 25mg daily metabolic alkalosis will hold lasix and restart diamox ILD continue prednisone tapering dose, Depression Suicidal ideation Plan to transfer to psychiatry postponed, will likely need inpatient psychiatry at a different facility as the patient is physically deconditioned psychiatry evaluation, increased mirtazapine, plan to transfer to psych floor upon discharge Physical deconditioning Secondary to prolonged hospital stay opoioid dependence suboxone hcv liver cirrhosis stable, outpatient follow up DVT PPX Eliquis
[2020-11-06 11:50] VITALS: BP 104/63; PULSE 71; RESP 20; TEMP 37; O2SAT 95
[2020-11-06] MEDS: Potassium Chloride ER 20 MEQ TAB.ER.PRT 40 MEQ PO ×2 (12:36→21:17)
[2020-11-06 15:17] VITALS: BP 130/84; PULSE 94; RESP 20; TEMP 36.6; O2SAT 96
[2020-11-06] MEDS: acetaZOLAMIDE 250 MG TABLET PO ×2 (16:00→21:18)
[2020-11-06 20:00] VITALS: BP 146/78; PULSE 89; RESP 18; TEMP 37.1; O2SAT 96
[2020-11-06] MEDS: QUEtiapine Fumarate 100 MG TABLET PO (21:18)
[2020-11-06] MEDS: Mirtazapine 15 MG TABLET PO (21:18)
[2020-11-07 04:00] VITALS: BP 107/70; PULSE 73; RESP 18; TEMP 36.6; O2SAT 95
[2020-11-07 07:16] LABS: Hematocrit 34.3 % (42-52); Hemoglobin 11.2 g/dl (14.0-18.0); Mean Corpuscular HGB Conc 32.7 g/dl (31.0-36.0); Mean Corpuscular Hemoglobin 28.9 pg (27.0-33.0); Mean Corpuscular Volume 88.6 fL (80-98); Mean Platelet Volume 10.3 fL (9.4-12.4); Platelet Count 293 X10*3/uL (160-400); Red Blood Count 3.87 X10*6/uL (4.60-5.80); Red Cell Distribution Width 18.6 % (11.0-16.0); White Blood Count 12.1 X10*3/uL (4.8-10.8)
[2020-11-07 07:41] LABS: Anion Gap 11 (12-20); Blood Urea Nitrogen 33 mg/dL (9-16); Carbon Dioxide 33 mmol/L (22-29); Chloride 102 mmol/L (96-108); Creatinine Clr Calc Pharmacy 180.9; Estimated Glomerular Filt Rate > 60; Glucose Fasting 89 mg/dL (60-99); Potassium 3.2 mmol/L (3.3-5.1); Sodium 143 mmol/L (135-145)
[2020-11-07 07:50] LABS: Calcium 8.7 mg/dL (8.4-10.2)
[2020-11-07 08:31] VITALS: BP 113/76; PULSE 70; RESP 16; TEMP 36.8; O2SAT 95
[2020-11-07 08:32] VITALS: BP 113/76; PULSE 70
[2020-11-07] MEDS: acetaZOLAMIDE 250 MG TABLET PO ×2 (08:32→21:14)
[2020-11-07] MEDS: Spironolactone 25 MG TABLET PO (08:32)
[2020-11-07] MEDS: Potassium Chloride ER 20 MEQ TAB.ER.PRT 40 MEQ PO (08:32)
[2020-11-07] MEDS: FLUoxetine HCl 20 MG CAPSULE 40 MG PO (08:33)
[2020-11-07] MEDS: predniSONE 20 MG TABLET PO (08:33)
[2020-11-07] MEDS: TiZANidine HCL 4 MG TABLET PO ×2 (08:33→21:13)
[2020-11-07] MEDS: 0.9 % Sodium Chloride Flush 3 ML SYRINGE IVFLUSH ×2 (08:33→16:37)
[2020-11-07] MEDS: Magnesium Oxide 400 MG TABLET PO ×2 (08:33→16:37)
[2020-11-07] MEDS: LORazepam 0.5 MG TABLET PO (08:33)
[2020-11-07] MEDS: Gabapentin 400 MG CAPSULE PO ×3 (08:33→21:14)
[2020-11-07] MEDS: Buprenorphine/Naloxone 4/1 mg FILM 1 FILM SUBLINGUAL ×2 (08:33→21:14)
[2020-11-07] MEDS: Apixaban 5 MG TABLET PO ×2 (08:33→21:14)
--- NOTE | 2020-11-07 10:48 | HO.PM.IMPN ---
Subjective Subjective Date of Service: 11/07/20 Interval History: fatigued Cardiovascular Cardiovascular: Reports no additional cardiovascular complaints Gastrointestinal Gastrointestinal: Reports no additional gastrointestinal complaints Physical Exam Vital Signs: Vital Signs: Last Vital Signs Temp 98.2 F 11/07/20 08:31 Pulse 70 11/07/20 08:32 Resp 16 11/07/20 08:31 BP 113/76 11/07/20 08:32 Pulse Ox 95 11/07/20 08:31 Body Mass Index 33.5 General: lethargic O X 3, ill appearing Resp: diminiushed CVS: S1,S2,RRR GI: soft, non tender, non distended Neuro: motor grossly intact Psych: appropriate affect Objective Data Current Medications Generic Name Dose Route Start Last Admin Trade Name Freq PRN Reason Stop Dose Admin Acetazolamide 250 mg 11/07/20 09:00 11/07/20 08:32 Acetazolamide 250 Mg Tablet PO 250 mg BID ELISEO Administration Apixaban 5 mg 10/28/20 21:00 11/07/20 08:33 Apixaban 5 Mg Tablet PO 5 mg BID ELISEO Administration Buprenorphine/Naloxone 1 film 10/11/20 09:30 11/07/20 08:33 Buprenorphine/Naloxone 4/1 Mg Film SUBLINGUAL 1 film BID ELISEO Administration Fluoxetine HCl 40 mg 10/10/20 18:30 11/07/20 08:33 Fluoxetine Hcl 20 Mg Capsule PO 40 mg DAILY ELISEO Administration Gabapentin 400 mg 10/16/20 10:00 11/07/20 08:33 Gabapentin 400 Mg Capsule PO 400 mg TID ELISEO Administration Lorazepam 0.5 mg 10/29/20 13:34 11/07/20 08:33 Lorazepam 0.5 Mg Tablet PO 0.5 mg Q8H PRN Administration Anxiety Magnesium Oxide 400 mg 11/03/20 17:30 11/07/20 08:33 Magnesium Oxide 400 Mg Tablet PO 400 mg BIDPC ELISEO Administration Miconazole Nitrate 1 appl 10/10/20 21:00 11/06/20 21:25 Miconazole 2 % Extra Thick Cr 56.7 Gm Tube TOPICAL Not Given BID ELISEO Protocol Mirtazapine 15 mg 10/31/20 21:00 11/06/20 21:18 Mirtazapine 15 Mg Tablet PO 15 mg BEDTIME ELISEO Administration Ondansetron HCl 4 mg 10/19/20 14:44 Ondansetron Hcl 4 Mg/2 Ml Vial IVPUSH Q8H PRN Nausea and Vomiting Prednisone 20 mg 10/31/20 09:00 11/07/20 08:33 Prednisone 20 Mg Tablet PO 20 mg DAILY ELISEO Administration Quetiapine Fumarate 100 mg 10/28/20 10:22 11/06/20 21:18 Quetiapine Fumarate 100 Mg Tablet PO 100 mg BEDTIME PRN Administration Restlessness Sodium Chloride 3 ml 10/19/20 16:00 11/07/20 08:33 0.9 % Sodium Chloride Flush 3 Ml Syringe IVFLUSH 3 ml QSHIFT ELISEO Administration Spironolactone 25 mg 11/06/20 09:50 11/07/20 08:32 Spironolactone 25 Mg Tablet PO 25 mg DAILY ELISEO Administration Protocol Tizanidine HCl 4 mg 10/16/20 09:57 11/07/20 08:33 Tizanidine Hcl 4 Mg Tablet PO 4 mg Q8H PRN Administration muscle spasm Labs CBC & Chem 7: 11/07/20 06:05 11/07/20 06:05 Microbiology Microbiology Results: Microbiology 10/19/20 12:54 Blood - Venous Blood Culture - Final No growth after 5 days. 10/19/20 12:53 Blood - Venous Blood Culture - Final No growth after 5 days. 10/10/20 10:16 Blood - Venous Blood Culture - Final No growth after 5 days. 10/10/20 09:45 Blood - Venous Blood Culture - Final No growth after 5 days. Assessment and Plan (1) Acute respiratory failure with hypoxia: Status: Acute (2) Pulmonary embolism without acute cor pulmonale: Status: Acute (3) ILD (interstitial lung disease): Status: Acute (4) Depression: Status: Acute (5) Fluid overload: Status: Acute (6) Opioid use disorder, moderate, in controlled environment: Status: Acute Assessment and Plan: 60M presented with hypoxia while waiting in ED for placement found to have PE. acute hypoxic respiratory failure due to PE Eliquis 5mg bid duplex negative for dvt, echo with no RV strain Acute on chronic diastolic CHF Negative BNP, echo showed normal EF with RV dysfunction History of tricuspid insufficiency, venous hypertension John catheter placed diuresed well, changed to po lasix 40mg bid (now on hold) off metolazone Hypokalemia Potassium improved to 3.2 replace and monitor added aldactone 25mg daily metabolic alkalosis improving with diamox metabolic encephalopathy check vbg ILD continue prednisone tapering dose, Depression Suicidal ideation Plan to transfer to psychiatry postponed, will likely need inpatient psychiatry at a different facility as the patient is physically deconditioned psychiatry evaluation, increased mirtazapine, plan to transfer to psych floor upon discharge Physical deconditioning Secondary to prolonged hospital stay opoioid dependence suboxone hcv liver cirrhosis stable, outpatient follow up DVT PPX Juan A
[2020-11-07 11:15] VITALS: BP 100/62; PULSE 68; RESP 20; TEMP 37; O2SAT 94
[2020-11-07] MEDS: Miconazole 2 % Extra Thick Cr 56.7 Gm Tube 1 APPL TOPICAL (11:34)
[2020-11-07 12:32] LABS: Venous Blood Gas Refer to POC result
[2020-11-07 12:33] LABS: VBG Base Excess 7.2 mmol/L; VBG HCO3 31 mmol/L (22-26); VBG pCO2 40 mmHg; VBG pH 7.49 (7.32-7.43); VBG pO2 69 mmHg
[2020-11-07 12:46] LABS: Ammonia 110 umol/L (13-55)
[2020-11-07] MEDS: Lactulose 20 GM/30 ML SOLUTION PO ×3 (14:08→21:13)
[2020-11-07 15:38] VITALS: BP 136/83; PULSE 70; RESP 14; TEMP 36.3; O2SAT 94
[2020-11-07 19:34] VITALS: BP 129/86; PULSE 75; RESP 14; TEMP 36.4; O2SAT 94
[2020-11-07] MEDS: Mirtazapine 15 MG TABLET PO (21:14)
[2020-11-07] MEDS: QUEtiapine Fumarate 100 MG TABLET PO (21:14)
--- NOTE | 2020-11-08 02:05 | PC.NURSE ---
Pt refused midnight VS but allowed us to wash him up and change his soiled sheets and gown. Dsg to Radha carney changed by day shift RN, C/D/I
[2020-11-08 06:58] LABS: Hematocrit 34.8 % (42-52); Hemoglobin 11.2 g/dl (14.0-18.0); Mean Corpuscular HGB Conc 32.2 g/dl (31.0-36.0); Mean Corpuscular Hemoglobin 28.7 pg (27.0-33.0); Mean Corpuscular Volume 89.2 fL (80-98); Mean Platelet Volume 10.6 fL (9.4-12.4); Platelet Count 333 X10*3/uL (160-400); Red Cell Distribution Width 18.7 % (11.0-16.0); White Blood Count 12.8 X10*3/uL (4.8-10.8)
[2020-11-08 07:12] LABS: Anion Gap 11 (12-20); Blood Urea Nitrogen 32 mg/dL (9-16); Calcium 8.7 mg/dL (8.4-10.2); Carbon Dioxide 27 mmol/L (22-29); Chloride 108 mmol/L (96-108); Creatinine Clr Calc Pharmacy 147.3; Estimated Glomerular Filt Rate > 60; Glucose Fasting 135 mg/dL (60-99); Potassium 3.4 mmol/L (3.3-5.1); Sodium 143 mmol/L (135-145)
[2020-11-08 07:46] VITALS: BP 122/84; PULSE 84; RESP 18; TEMP 36.8; O2SAT 94
[2020-11-08 09:05] VITALS: BP 122/84; PULSE 84
[2020-11-08] MEDS: Buprenorphine/Naloxone 4/1 mg FILM 1 FILM SUBLINGUAL ×2 (09:05→22:02)
[2020-11-08] MEDS: Apixaban 5 MG TABLET PO ×2 (09:05→22:02)
[2020-11-08] MEDS: Spironolactone 25 MG TABLET PO (09:05)
[2020-11-08] MEDS: FLUoxetine HCl 20 MG CAPSULE 40 MG PO (09:06)
[2020-11-08] MEDS: predniSONE 20 MG TABLET PO (09:06)
[2020-11-08] MEDS: Gabapentin 400 MG CAPSULE PO ×3 (09:06→22:02)
[2020-11-08] MEDS: acetaZOLAMIDE 250 MG TABLET PO ×2 (09:07→22:02)
[2020-11-08] MEDS: 0.9 % Sodium Chloride Flush 3 ML SYRINGE IVFLUSH ×3 (09:07→22:02)
[2020-11-08] MEDS: Potassium Chloride ER 20 MEQ TAB.ER.PRT 40 MEQ PO (09:07)
[2020-11-08] MEDS: Lactulose 20 GM/30 ML SOLUTION PO ×4 (09:07→22:02)
[2020-11-08] MEDS: Magnesium Oxide 400 MG TABLET PO ×2 (09:10→17:20)
[2020-11-08 11:47] VITALS: BP 134/81; PULSE 110; RESP 20; TEMP 36.8; O2SAT 89
--- NOTE | 2020-11-08 12:01 | MHC.CM.PN ---
Male 60 DP is to M-3, once medically cleared. Currently Encephalopathy is reason that the pt is not medically cleared. He has been given Lactulose with some improvement. CM will follow.
--- NOTE | 2020-11-08 12:04 | HO.PM.IMPN ---
Subjective Subjective Date of Service: 11/08/20 Interval History: weak Cardiovascular Cardiovascular: Reports no additional cardiovascular complaints Respiratory Respiratory: Reports no additional respiratory complaints Physical Exam Vital Signs: Vital Signs: Last Vital Signs Temp 98.3 F 11/08/20 11:47 Pulse 110 H 11/08/20 11:47 Resp 20 11/08/20 11:47 BP 134/81 11/08/20 11:47 Pulse Ox 89 L 11/08/20 11:47 Body Mass Index 33.5 General: lethargic O X 3, ill appearing Resp: diminiushed CVS: S1,S2,RRR GI: soft, non tender, non distended Neuro: assterixis Psych: appropriate affect Objective Data Current Medications Generic Name Dose Route Start Last Admin Trade Name Freq PRN Reason Stop Dose Admin Acetazolamide 250 mg 11/07/20 09:00 11/08/20 09:07 Acetazolamide 250 Mg Tablet PO 250 mg BID ELISEO Administration Apixaban 5 mg 10/28/20 21:00 11/08/20 09:05 Apixaban 5 Mg Tablet PO 5 mg BID ELISEO Administration Buprenorphine/Naloxone 1 film 10/11/20 09:30 11/08/20 09:05 Buprenorphine/Naloxone 4/1 Mg Film SUBLINGUAL 1 film BID ELISEO Administration Fluoxetine HCl 40 mg 10/10/20 18:30 11/08/20 09:06 Fluoxetine Hcl 20 Mg Capsule PO 40 mg DAILY ELISEO Administration Gabapentin 400 mg 10/16/20 10:00 11/08/20 09:06 Gabapentin 400 Mg Capsule PO 400 mg TID ELISEO Administration Lactulose 20 gm 11/07/20 13:15 11/08/20 09:07 Lactulose 20 Gm/30 Ml Solution PO 20 gm QID ELISEO Administration Magnesium Oxide 400 mg 11/03/20 17:30 11/08/20 09:10 Magnesium Oxide 400 Mg Tablet PO 400 mg BIDPC ELISEO Administration Miconazole Nitrate 1 appl 10/10/20 21:00 11/08/20 09:08 Miconazole 2 % Extra Thick Cr 56.7 Gm Tube TOPICAL Not Given BID [facility] Protocol Mirtazapine 15 mg 10/31/20 21:00 11/07/20 21:14 Mirtazapine 15 Mg Tablet PO 15 mg BEDTIME ELISEO Administration Ondansetron HCl 4 mg 10/19/20 14:44 Ondansetron Hcl 4 Mg/2 Ml Vial IVPUSH Q8H PRN Nausea and Vomiting Prednisone 20 mg 10/31/20 09:00 11/08/20 09:06 Prednisone 20 Mg Tablet PO 20 mg DAILY ELISEO Administration Quetiapine Fumarate 100 mg 10/28/20 10:22 11/07/20 21:14 Quetiapine Fumarate 100 Mg Tablet PO 100 mg BEDTIME PRN Administration Restlessness Sodium Chloride 3 ml 10/19/20 16:00 11/08/20 09:07 0.9 % Sodium Chloride Flush 3 Ml Syringe IVFLUSH 3 ml QSHIFT ELISEO Administration Spironolactone 25 mg 11/06/20 09:50 11/08/20 09:05 Spironolactone 25 Mg Tablet PO 25 mg DAILY ELISEO Administration Protocol Tizanidine HCl 4 mg 10/16/20 09:57 11/07/20 21:13 Tizanidine Hcl 4 Mg Tablet PO 4 mg Q8H PRN Administration muscle spasm Labs CBC & Chem 7: 11/08/20 05:20 11/08/20 05:20 Labs: Laboratory Results - last 24 hr 11/07/20 11/07/20 11/08/20 12:23 12:25 05:20 WBC 12.8 H RBC 3.90 L Hgb 11.2 L Hct 34.8 L MCV 89.2 MCH 28.7 MCHC 32.2 RDW 18.7 H Plt Count 333 MPV 10.6 Absolute Nucleated RBC 0.000 Nucleated RBC % (auto) 0.0 VBG pH 7.49 H VBG pCO2 40 VBG pO2 69 VBG HCO3 31 H VBG O2 Saturation 93.0 VBG Base Excess 7.2 Sodium Potassium Chloride Carbon Dioxide Anion Gap BUN Creatinine Estim Creat Clear Calc Estimated GFR Fasting Glucose Calcium Ammonia 110 H 11/08/20 05:20 WBC RBC Hgb Hct MCV MCH MCHC RDW Plt Count MPV Absolute Nucleated RBC Nucleated RBC % (auto) VBG pH VBG pCO2 VBG pO2 VBG HCO3 VBG O2 Saturation VBG Base Excess Sodium 143 Potassium 3.4 Chloride 108 Carbon Dioxide 27 Anion Gap 11 L BUN 32 H Creatinine 0.70 Estim Creat Clear Calc 147.3 Estimated GFR > 60 Fasting Glucose 135 H D Calcium 8.7 Ammonia Assessment and Plan (1) Acute respiratory failure with hypoxia: Status: Acute (2) Pulmonary embolism without acute cor pulmonale: Status: Acute (3) ILD (interstitial lung disease): Status: Acute (4) Depression: Status: Acute (5) Fluid overload: Status: Acute (6) Opioid use disorder, moderate, in controlled environment: Status: Acute Assessment and Plan: 60M presented with hypoxia while waiting in ED for placement found to have PE. acute hypoxic respiratory failure due to PE Eliquis 5mg bid duplex negative for dvt, echo with no RV strain Acute on chronic diastolic CHF Negative BNP, echo showed normal EF with RV dysfunction History of tricuspid insufficiency, venous hypertension John catheter placed diuresed well, changed to po lasix 40mg bid (now on hold) off metolazone Hypokalemia Potassium improved to 3.4 replace and monitor added aldactone 25mg daily metabolic alkalosis improving with diamox hepatic encephalopathy lactulose ILD continue prednisone tapering dose, Depression Suicidal ideation Plan to transfer to psychiatry postponed, will likely need inpatient psychiatry at a different facility as the patient is physically deconditioned psychiatry evaluation, increased mirtazapine, plan to transfer to psych floor upon discharge Physical deconditioning Secondary to prolonged hospital stay opoioid dependence suboxone hcv liver cirrhosis stable, outpatient follow up DVT PPX Eliquis
--- NOTE | 2020-11-08 12:59 | PC.NURSE ---
)2 sat 89%RA. Notified Dr. Bonilla who would like 02 sat >90%. o2 placed at 1LNC and will reassess.
[2020-11-08 15:26] VITALS: BP 140/89; PULSE 100; RESP 18; TEMP 36.6; O2SAT 95
[2020-11-08 19:49] VITALS: BP 146/84; PULSE 100; RESP 15; TEMP 36.7; O2SAT 93
[2020-11-08] MEDS: Mirtazapine 15 MG TABLET PO (22:02)
[2020-11-08] MEDS: TiZANidine HCL 4 MG TABLET PO (22:09)
[2020-11-08] MEDS: QUEtiapine Fumarate 100 MG TABLET PO (22:09)
[2020-11-09] VITALS (7 sets, daily range): BP systolic 104–140; BP diastolic 64–83; PULSE 73–92; RESP 15–20; TEMP 36–36.9; O2SAT 92–98
[2020-11-09 07:36] LABS: Hematocrit 37.1 % (42-52); Hemoglobin 11.8 g/dl (14.0-18.0); Mean Corpuscular HGB Conc 31.8 g/dl (31.0-36.0); Mean Corpuscular Hemoglobin 29.1 pg (27.0-33.0); Mean Corpuscular Volume 91.4 fL (80-98); Mean Platelet Volume 10.6 fL (9.4-12.4); Platelet Count 367 X10*3/uL (160-400); Red Blood Count 4.06 X10*6/uL (4.60-5.80); Red Cell Distribution Width 18.7 % (11.0-16.0); White Blood Count 13.2 X10*3/uL (4.8-10.8)
[2020-11-09 08:17] LABS: Anion Gap 14 (12-20); Blood Urea Nitrogen 27 mg/dL (9-16); Calcium 8.8 mg/dL (8.4-10.2); Carbon Dioxide 20 mmol/L (22-29); Chloride 112 mmol/L (96-108); Creatinine Clr Calc Pharmacy 149.5; Estimated Glomerular Filt Rate > 60; Glucose Fasting 120 mg/dL (60-99); Potassium 3.9 mmol/L (3.3-5.1); Sodium 142 mmol/L (135-145)
[2020-11-09] MEDS: Magnesium Oxide 400 MG TABLET PO ×2 (10:14→15:52)
[2020-11-09] MEDS: 0.9 % Sodium Chloride Flush 3 ML SYRINGE IVFLUSH ×2 (10:14→15:53)
[2020-11-09] MEDS: Gabapentin 400 MG CAPSULE PO ×3 (10:14→20:05)
[2020-11-09] MEDS: predniSONE 20 MG TABLET PO (10:14)
[2020-11-09] MEDS: FLUoxetine HCl 20 MG CAPSULE 40 MG PO (10:14)
[2020-11-09] MEDS: Spironolactone 25 MG TABLET PO (10:14)
[2020-11-09] MEDS: acetaZOLAMIDE 250 MG TABLET PO (10:14)
[2020-11-09] MEDS: Lactulose 20 GM/30 ML SOLUTION PO ×3 (10:14→18:37)
[2020-11-09] MEDS: Buprenorphine/Naloxone 4/1 mg FILM 1 FILM SUBLINGUAL ×2 (10:15→21:00)
[2020-11-09] MEDS: Apixaban 5 MG TABLET PO ×2 (10:15→20:05)
--- NOTE | 2020-11-09 12:59 | P.PNIM_ITS ---
Subjective Subjective Date of Service: 11/09/20 Interval History: lethargic, confused, tired Cardiovascular Cardiovascular: Reports no additional cardiovascular complaints Gastrointestinal Gastrointestinal: Reports no additional gastrointestinal complaints Physical Exam Vital Signs: Vital Signs: Last Vital Signs Temp 97 F 11/09/20 11:21 Pulse 82 11/09/20 11:21 Resp 20 11/09/20 11:21 BP 132/64 11/09/20 11:21 Pulse Ox 96 11/09/20 11:21 Body Mass Index 33.5 General: lethargic O X 3, ill appearing Resp: diminiushed CVS: S1,S2,RRR GI: soft, non tender, non distended Neuro: assterixis Psych: appropriate affect Objective Data Current Medications Generic Name Dose Route Start Last Admin Trade Name Freq PRN Reason Stop Dose Admin Acetazolamide 250 mg 11/07/20 09:00 11/09/20 10:14 Acetazolamide 250 Mg Tablet PO 250 mg BID ELISEO Administration Apixaban 5 mg 10/28/20 21:00 11/09/20 10:15 Apixaban 5 Mg Tablet PO 5 mg BID ELISEO Administration Buprenorphine/Naloxone 1 film 10/11/20 09:30 11/09/20 10:15 Buprenorphine/Naloxone 4/1 Mg Film SUBLINGUAL 1 film BID ELISEO Administration Fluoxetine HCl 40 mg 10/10/20 18:30 11/09/20 10:14 Fluoxetine Hcl 20 Mg Capsule PO 40 mg DAILY LEISEO Administration Gabapentin 400 mg 10/16/20 10:00 11/09/20 10:14 Gabapentin 400 Mg Capsule PO 400 mg TID ELISEO Administration Lactulose 20 gm 11/07/20 13:15 11/09/20 10:14 Lactulose 20 Gm/30 Ml Solution PO 20 gm QID ELISEO Administration Magnesium Oxide 400 mg 11/03/20 17:30 11/09/20 10:14 Magnesium Oxide 400 Mg Tablet PO 400 mg BIDPC ELISEO Administration Miconazole Nitrate 1 appl 10/10/20 21:00 11/09/20 10:15 Miconazole 2 % Extra Thick Cr 56.7 Gm Tube TOPICAL Not Given BID [facility] Protocol Mirtazapine 15 mg 10/31/20 21:00 11/08/20 22:02 Mirtazapine 15 Mg Tablet PO 15 mg BEDTIME ELISEO Administration Ondansetron HCl 4 mg 10/19/20 14:44 Ondansetron Hcl 4 Mg/2 Ml Vial IVPUSH Q8H PRN Nausea and Vomiting Prednisone 20 mg 10/31/20 09:00 11/09/20 10:14 Prednisone 20 Mg Tablet PO 20 mg DAILY ELISEO Administration Quetiapine Fumarate 100 mg 10/28/20 10:22 11/08/20 22:09 Quetiapine Fumarate 100 Mg Tablet PO 100 mg BEDTIME PRN Administration Restlessness Sodium Chloride 3 ml 10/19/20 16:00 11/09/20 10:14 0.9 % Sodium Chloride Flush 3 Ml Syringe IVFLUSH 3 ml QSHIFT ELISEO Administration Spironolactone 25 mg 11/06/20 09:50 11/09/20 10:14 Spironolactone 25 Mg Tablet PO 25 mg DAILY ELISEO Administration Protocol Tizanidine HCl 4 mg 10/16/20 09:57 11/08/20 22:09 Tizanidine Hcl 4 Mg Tablet PO 4 mg Q8H PRN Administration muscle spasm Labs CBC & Chem 7: 11/09/20 06:47 11/09/20 06:47 Labs: Laboratory Results - last 24 hr 11/09/20 11/09/20 06:47 06:47 WBC 13.2 H RBC 4.06 L Hgb 11.8 L Hct 37.1 L MCV 91.4 MCH 29.1 MCHC 31.8 RDW 18.7 H Plt Count 367 MPV 10.6 Absolute Nucleated RBC 0.000 Nucleated RBC % (auto) 0.0 Sodium 142 Potassium 3.9 Chloride 112 H Carbon Dioxide 20 L Anion Gap 14 BUN 27 H Creatinine 0.69 Estim Creat Clear Calc 149.5 Estimated GFR > 60 Fasting Glucose 120 H Calcium 8.8 Assessment and Plan (1) Acute respiratory failure with hypoxia: Status: Acute (2) Pulmonary embolism without acute cor pulmonale: Status: Acute (3) ILD (interstitial lung disease): Status: Acute (4) Depression: Status: Acute (5) Fluid overload: Status: Acute (6) Opioid use disorder, moderate, in controlled environment: Status: Acute Assessment and Plan: 60M presented with hypoxia while waiting in ED for placement found to have PE. course complicated by chf, hypokalemia, now with hepatic encephalopathy acute hypoxic respiratory failure due to PE Eliquis 5mg bid duplex negative for dvt, echo with no RV strain Acute on chronic diastolic CHF Negative BNP, echo showed normal EF with RV dysfunction History of tricuspid insufficiency, venous hypertension John catheter placed diuresed well, changed to po lasix 40mg bid off metolazone Hypokalemia Potassium improved to 3.9 monitor continue aldactone 25mg daily metabolic alkalosis resolved after diamox hepatic encephalopathy still encephalopathic continue lactulose goal 2-3 bm per day, will add rifaximin ILD continue prednisone tapering dose, Depression Suicidal ideation Plan to transfer to psychiatry postponed due to acute illness plan to transfer to [facility] floor upon discharge Physical deconditioning Secondary to prolonged hospital stay opoioid dependence suboxone hcv liver cirrhosis outpatient follow up DVT PPX Eliquis
[2020-11-09] MEDS: Furosemide 40 MG TABLET PO (18:37)
[2020-11-09] MEDS: rifAXIMin 550 MG TABLET PO (20:05)
[2020-11-09] MEDS: Mirtazapine 15 MG TABLET PO (20:05)
[2020-11-09] MEDS: QUEtiapine Fumarate 100 MG TABLET PO (20:06)
[2020-11-09] MEDS: TiZANidine HCL 4 MG TABLET PO (20:06)
[2020-11-10] VITALS (8 sets, daily range): BP systolic 101–143; BP diastolic 63–84; PULSE 80–113; RESP 18–20; TEMP 36.1–36.9; O2SAT 95–98
[2020-11-10 05:59] LABS: Hematocrit 33.6 % (42-52); Hemoglobin 10.7 g/dl (14.0-18.0); Mean Corpuscular HGB Conc 31.8 g/dl (31.0-36.0); Mean Corpuscular Hemoglobin 28.9 pg (27.0-33.0); Mean Corpuscular Volume 90.8 fL (80-98); Mean Platelet Volume 10.6 fL (9.4-12.4); Platelet Count 384 X10*3/uL (160-400); Red Cell Distribution Width 18.8 % (11.0-16.0); White Blood Count 13.9 X10*3/uL (4.8-10.8)
[2020-11-10 06:17] LABS: Ammonia 92 umol/L (13-55)
[2020-11-10 06:29] LABS: Anion Gap 11 (12-20); Blood Urea Nitrogen 26 mg/dL (9-16); Calcium 8.4 mg/dL (8.4-10.2); Carbon Dioxide 23 mmol/L (22-29); Chloride 111 mmol/L (96-108); Creatinine Clr Calc Pharmacy 153.9; Estimated Glomerular Filt Rate > 60; Glucose Fasting 104 mg/dL (60-99); Potassium 3.6 mmol/L (3.3-5.1); Sodium 141 mmol/L (135-145)
[2020-11-10] MEDS: FLUoxetine HCl 20 MG CAPSULE 40 MG PO (08:41)
[2020-11-10] MEDS: Gabapentin 400 MG CAPSULE PO ×3 (08:41→20:18)
[2020-11-10] MEDS: 0.9 % Sodium Chloride Flush 3 ML SYRINGE IVFLUSH ×2 (08:41→16:31)
[2020-11-10] MEDS: Furosemide 40 MG TABLET PO ×2 (08:42→16:31)
[2020-11-10] MEDS: Apixaban 5 MG TABLET PO ×2 (08:42→20:19)
[2020-11-10] MEDS: rifAXIMin 550 MG TABLET PO ×2 (08:42→20:18)
[2020-11-10] MEDS: Spironolactone 25 MG TABLET PO (08:42)
[2020-11-10] MEDS: Magnesium Oxide 400 MG TABLET PO ×2 (08:42→16:31)
[2020-11-10] MEDS: Lactulose 20 GM/30 ML SOLUTION PO ×4 (08:43→20:18)
[2020-11-10] MEDS: Buprenorphine/Naloxone 4/1 mg FILM 1 FILM SUBLINGUAL ×2 (08:43→20:19)
[2020-11-10] MEDS: predniSONE 20 MG TABLET PO (08:48)
--- NOTE | 2020-11-10 16:04 | HO.PM.IMPN ---
Subjective Subjective Date of Service: 11/10/20 Interval History: Patient awake alert feeling anxious requesting for Ativan, yesterday was noted to be lethargic and confused and was started on Xifaxan, is moving bowel once daily ammonia level improved from 110-92 has chronically elevated ammonia level. Complaining of anterior chest wall discomfort with deep breathing. 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, no dizziness CVS no chest pain, no palpitation GI denies nausea, no vomiting Physical Exam Vital Signs: Vital Signs: Last Vital Signs Temp 98 F 11/10/20 15:35 Pulse 95 11/10/20 15:35 Resp 18 11/10/20 15:35 BP 125/81 11/10/20 15:35 Pulse Ox 96 11/10/20 15:35 Body Mass Index 33.5 General: awake alert , answering appropriately Resp: diminiushed breath sound, no wheeze, no crackle CVS: S1,S2,RRR GI: soft, non tender, non distended, bowel sounds audible Neuro: Awake alert to place and person, no asterixis, Extremities no pitting edema discoloration both legs likely due to chronic venous stasis Psych: appropriate affect Objective Data Current Medications Generic Name Dose Route Start Last Admin Trade Name Freq PRN Reason Stop Dose Admin Apixaban 5 mg 10/28/20 21:00 11/10/20 08:42 Apixaban 5 Mg Tablet PO 5 mg BID ELISEO Administration Buprenorphine/Naloxone 1 film 10/11/20 09:30 11/10/20 08:43 Buprenorphine/Naloxone 4/1 Mg Film SUBLINGUAL 1 film BID ELISEO Administration Fluoxetine HCl 40 mg 10/10/20 18:30 11/10/20 08:41 Fluoxetine Hcl 20 Mg Capsule PO 40 mg DAILY ELISEO Administration Furosemide 40 mg 11/09/20 18:00 11/10/20 08:42 Furosemide 40 Mg Tablet PO 40 mg BID@0900,1800 ELISEO Administration Protocol Gabapentin 400 mg 10/16/20 10:00 11/10/20 14:42 Gabapentin 400 Mg Capsule PO 400 mg TID ELISEO Administration Lactulose 20 gm 11/07/20 13:15 11/10/20 14:42 Lactulose 20 Gm/30 Ml Solution PO 20 gm QID ELISEO Administration Lorazepam 0.5 mg 11/10/20 16:03 Lorazepam 0.5 Mg Tablet PO Q8H PRN Anxiety Magnesium Oxide 400 mg 11/03/20 17:30 11/10/20 08:42 Magnesium Oxide 400 Mg Tablet PO 400 mg BIDPC ELISEO Administration Miconazole Nitrate 1 appl 10/10/20 21:00 11/10/20 08:48 Miconazole 2 % Extra Thick Cr 56.7 Gm Tube TOPICAL Not Given BID [facility] Protocol Mirtazapine 15 mg 10/31/20 21:00 11/09/20 20:05 Mirtazapine 15 Mg Tablet PO 15 mg BEDTIME ELISEO Administration Ondansetron HCl 4 mg 10/19/20 14:44 Ondansetron Hcl 4 Mg/2 Ml Vial IVPUSH Q8H PRN Nausea and Vomiting Prednisone 20 mg 10/31/20 09:00 11/10/20 08:48 Prednisone 20 Mg Tablet PO 20 mg DAILY ELISEO Administration Quetiapine Fumarate 100 mg 10/28/20 10:22 11/09/20 20:06 Quetiapine Fumarate 100 Mg Tablet PO 100 mg BEDTIME PRN Administration Restlessness Rifaximin 550 mg 11/09/20 21:00 11/10/20 08:42 Rifaximin 550 Mg Tablet PO 550 mg BID ELISEO Administration Sodium Chloride 3 ml 10/19/20 16:00 11/10/20 08:41 0.9 % Sodium Chloride Flush 3 Ml Syringe IVFLUSH 3 ml QSHIFT [facility] Administration Spironolactone 25 mg 11/06/20 09:50 11/10/20 08:42 Spironolactone 25 Mg Tablet PO 25 mg DAILY ELISEO Administration Protocol Tizanidine HCl 4 mg 10/16/20 09:57 11/09/20 20:06 Tizanidine Hcl 4 Mg Tablet PO 4 mg Q8H PRN Administration muscle spasm Labs CBC & Chem 7: 11/10/20 05:32 11/10/20 05:32 Labs: Laboratory Results - last 24 hr 11/10/20 11/10/20 11/10/20 05:32 05:32 05:32 WBC 13.9 H RBC 3.70 L Hgb 10.7 L Hct 33.6 L MCV 90.8 MCH 28.9 MCHC 31.8 RDW 18.8 H Plt Count 384 MPV 10.6 Absolute Nucleated RBC 0.000 Nucleated RBC % (auto) 0.0 Sodium 141 Potassium 3.6 Chloride 111 H Carbon Dioxide 23 Anion Gap 11 L BUN 26 H Creatinine 0.67 Estim Creat Clear Calc 153.9 Estimated GFR > 60 Fasting Glucose 104 H Calcium 8.4 Magnesium 2.0 Ammonia 92 H Quality Stroke Does the patient have a stroke diagnosis?: No VTE Prior VTE?: No VTE Risk Level:: Medical - moderate - high VTE Device Contraindication: N/A - Device Ordered VTE Drug Contraindication: N/A - Med Ordered Assessment and Plan (1) Acute respiratory failure with hypoxia: Status: Acute (2) Pulmonary embolism without acute cor pulmonale: Status: Acute (3) Depression: Status: Acute (4) Hepatic encephalopathy: Status: Acute Assessment and Plan: 60M presented with hypoxia while waiting in ED for placement found to have PE. course complicated by chf, hypokalemia, now with hepatic encephalopathy acute hypoxic respiratory failure due to PE Continue Eliquis 5mg bid, oxygenating 96% on 3 L will wean down to 2 L and follow closely duplex negative for dvt, echo with no RV strain Acute on chronic diastolic CHF Negative BNP, echo showed normal EF with RV dysfunction History of tricuspid insufficiency, venous hypertension Status post IV Lasix, now on by mouth Lasix appears euvolemic ,off metolazone Hypokalemia Potassium improved to 3.9 monitor continue aldactone 25mg daily metabolic alkalosis resolved after diamox hepatic encephalopathy Resolved has chronically elevated ammonia level,continue lactulose goal 2-3 bm per day, continue rifaximin ILD continue prednisone tapering dose, now on 20 mg daily by mouth daily Depression Suicidal ideation, will consult N and care team for possible discharge to psychiatry, has been on Ativan as needed for anxiety Will resume, continue all other home medication Physical deconditioning Secondary to prolonged hospital stay to chair and ambulation t.i.d. seen by Physical therapy 11/09 however he declined therapy, PT recommend long-term care upon discharge opoioid dependence continue suboxone hcv liver cirrhosis outpatient follow up DVT PPX Eliquis
[2020-11-10] MEDS: LORazepam 0.5 MG TABLET PO (16:31)
[2020-11-10] MEDS: TiZANidine HCL 4 MG TABLET PO (20:18)
[2020-11-10] MEDS: Mirtazapine 15 MG TABLET PO (20:19)
[2020-11-10] MEDS: QUEtiapine Fumarate 100 MG TABLET PO (20:22)
[2020-11-11] VITALS (8 sets, daily range): BP systolic 109–147; BP diastolic 64–83; PULSE 79–100; RESP 18–24; TEMP 36.1–37.3; O2SAT 90–99
[2020-11-11] MEDS: 0.9 % Sodium Chloride Flush 3 ML SYRINGE IVFLUSH ×3 (05:08→14:28)
[2020-11-11] MEDS: Lactulose 20 GM/30 ML SOLUTION PO ×4 (08:34→21:24)
[2020-11-11] MEDS: Magnesium Oxide 400 MG TABLET PO ×2 (08:34→17:06)
[2020-11-11] MEDS: Furosemide 40 MG TABLET PO ×2 (08:34→17:06)
[2020-11-11] MEDS: Spironolactone 25 MG TABLET PO (08:35)
[2020-11-11] MEDS: rifAXIMin 550 MG TABLET PO ×2 (08:35→21:25)
[2020-11-11] MEDS: Buprenorphine/Naloxone 4/1 mg FILM 1 FILM SUBLINGUAL ×2 (08:36→21:25)
[2020-11-11] MEDS: Gabapentin 400 MG CAPSULE PO ×3 (08:36→21:24)
[2020-11-11] MEDS: FLUoxetine HCl 20 MG CAPSULE 40 MG PO (08:36)
[2020-11-11] MEDS: Apixaban 5 MG TABLET PO ×2 (08:36→21:24)
[2020-11-11] MEDS: Miconazole 2 % Extra Thick Cr 56.7 Gm Tube 1 APPL TOPICAL ×2 (08:40→21:50)
[2020-11-11] MEDS: predniSONE 5 MG TABLET 15 MG PO (08:50)
[2020-11-11] MEDS: LORazepam 0.5 MG TABLET PO ×2 (08:50→21:24)
--- NOTE | 2020-11-11 11:40 | MHC.CARE ---
10:15: Met with pt at the request of Dr. Andrew Miles. Pt is depressed stating his depression is a7 out of 10. His depression is ongoing. Pt states that if his mind is occupied his depression isn?t as bad. Pt states ?I?m very depressed; I don?t know what to do.? Pt endorses SI with a plan to ?Go out into the [place] and do as much dope as I can and just go to sleep? (Pt?s nurse Leigh made aware). Pt states that he ?always? has thoughts of suicide. Pt reports anxiety, particularly surrounding his housing situation and the uncertainty of his future. Pt said ?I don?t know what?s going on with anything.? Pt has worry surrounding homelessness, and concerns that he isn?t ?Strong enough? to stay off heroin while on the streets. Pt reports constant thoughts of drug use but no cravings. Pt reports fci flashbacks frequently throughout the day and night. He has been trying to use tv to distract him when this occurs but some of the themes and images on tv can be triggering of the flashbacks. Pt reports a good appetite and stated that he has been ?Eating too much?. Pt reports disturbed sleep, sleeping for an hour or two at a time with frequent awakenings throughout the night. Met with pt?s nurse who stated that she wasn?t certain if he was medically cleared, advised CARE Team that pt has been getting physical therapy but has been reluctant to participate. Pt has been allowing staff to assist him in cleaning himself. Pt had been reluctant to participate in such activities previously. Met with Case Management who advised CARE Team that the plan had been for pt to go to [facility] for rehab but he has been refusing, saying he will leave AMA. Pt has left [facility] AMA in the past. Pt wants an ?M5? admission. It is unclear as to whether our inpatient psych units can accommodate his rehab needs. CARE Team has contacted the Psychiatrists requesting a consult to determine if pt?s medical issues are too acute for an inpatient stay on a psychiatric unit.
--- NOTE | 2020-11-11 14:58 | P.PNIM_ITS ---
Subjective Subjective Date of Service: 11/11/20 Interval History: Patient feels tired, otherwise offers no acute complaints of abdominal pain, no diarrhea, no urinary symptoms of burning or dysuria denies anxiety, no overnight acute issues. 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, no dizziness CVS no chest pain, no palpitation GI denies nausea, no vomiting Physical Exam Vital Signs: Vital Signs: Last Vital Signs Temp 97 F 11/11/20 11:24 Pulse 94 11/11/20 11:24 Resp 24 H 11/11/20 11:24 BP 143/82 H 11/11/20 11:24 Pulse Ox 94 11/11/20 11:24 Body Mass Index 33.5 General: awake alert , answering appropriately Resp: diminished breath sound, no wheeze, no crackle CVS: S1,S2,RRR GI: soft, non tender, non distended, bowel sounds audible Neuro: Awake alert to place and person, no asterixis, Extremities no pitting edema, discoloration both legs likely due to chronic venous stasis, left leg dressing intact Psych: appropriate affect Objective Data Current Medications Generic Name Dose Route Start Last Admin Trade Name Freq PRN Reason Stop Dose Admin Apixaban 5 mg 10/28/20 21:00 11/11/20 08:36 Apixaban 5 Mg Tablet PO 5 mg BID ELISEO Administration Buprenorphine/Naloxone 1 film 10/11/20 09:30 11/11/20 08:36 Buprenorphine/Naloxone 4/1 Mg Film SUBLINGUAL 1 film BID ELISEO Administration Fluoxetine HCl 40 mg 10/10/20 18:30 11/11/20 08:36 Fluoxetine Hcl 20 Mg Capsule PO 40 mg DAILY ELISEO Administration Furosemide 40 mg 11/09/20 18:00 11/11/20 08:34 Furosemide 40 Mg Tablet PO 40 mg BID@0900,1800 ELISEO Administration Protocol Gabapentin 400 mg 10/16/20 10:00 11/11/20 14:28 Gabapentin 400 Mg Capsule PO 400 mg TID ELISEO Administration Lactulose 20 gm 11/07/20 13:15 11/11/20 14:28 Lactulose 20 Gm/30 Ml Solution PO 20 gm QID ELISEO Administration Lorazepam 0.5 mg 11/10/20 16:03 11/11/20 08:50 Lorazepam 0.5 Mg Tablet PO 0.5 mg Q8H PRN Administration Anxiety Magnesium Oxide 400 mg 11/03/20 17:30 11/11/20 08:34 Magnesium Oxide 400 Mg Tablet PO 400 mg BIDPC ELISEO Administration Miconazole Nitrate 1 appl 10/10/20 21:00 11/11/20 08:40 Miconazole 2 % Extra Thick Cr 56.7 Gm Tube TOPICAL 1 appl BID ELISEO Administration Protocol Mirtazapine 15 mg 10/31/20 21:00 11/10/20 20:19 Mirtazapine 15 Mg Tablet PO 15 mg BEDTIME ELISEO Administration Ondansetron HCl 4 mg 10/19/20 14:44 Ondansetron Hcl 4 Mg/2 Ml Vial IVPUSH Q8H PRN Nausea and Vomiting Prednisone 15 mg 11/11/20 09:00 11/11/20 08:50 Prednisone 5 Mg Tablet PO 15 mg DAILY ELISEO Administration Quetiapine Fumarate 100 mg 10/28/20 10:22 11/10/20 20:22 Quetiapine Fumarate 100 Mg Tablet PO 100 mg BEDTIME PRN Administration Restlessness Rifaximin 550 mg 11/09/20 21:00 11/11/20 08:35 Rifaximin 550 Mg Tablet PO 550 mg BID ELISEO Administration Sodium Chloride 3 ml 10/19/20 16:00 11/11/20 14:28 0.9 % Sodium Chloride Flush 3 Ml Syringe IVFLUSH 3 ml QSHIFT ELISEO Administration Spironolactone 25 mg 11/06/20 09:50 11/11/20 08:35 Spironolactone 25 Mg Tablet PO 25 mg DAILY ELISEO Administration Protocol Tizanidine HCl 4 mg 10/16/20 09:57 11/10/20 20:18 Tizanidine Hcl 4 Mg Tablet PO 4 mg Q8H PRN Administration muscle spasm Labs CBC & Chem 7: 11/10/20 05:32 11/10/20 05:32 Quality Stroke Does the patient have a stroke diagnosis?: No VTE Prior VTE?: No VTE Risk Level:: Medical - moderate - high VTE Device Contraindication: N/A - Device Ordered VTE Drug Contraindication: N/A - Med Ordered Assessment and Plan (1) Hepatic encephalopathy: Status: Acute (2) Acute respiratory failure with hypoxia: Status: Acute (3) Pulmonary embolism without acute cor pulmonale: Status: Acute (4) Depression: Status: Acute (5) ILD (interstitial lung disease): Status: Acute (6) Non-rheumatic tricuspid valve insufficiency: Status: Acute (7) Opioid use disorder, moderate, in controlled environment: Status: Acute Assessment and Plan: 60M presented with hypoxia while waiting in ED for placement found to have PE. course complicated by chf, hypokalemia, now with hepatic encephalopathy acute hypoxic respiratory failure due to PE Continue Eliquis 5mg bid, oxygenating 96% on 3 L will wean down to 2 L today and follow clinical course closely duplex negative for dvt, echo with no RV strain Acute on chronic diastolic CHF Negative BNP, echo showed normal EF with RV dysfunction History of tricuspid insufficiency, venous hypertension Status post IV Lasix, now on by mouth Lasix appears euvolemic ,off metolazone Hypokalemia Potassium improved continue aldactone 25mg daily, follow BMP metabolic alkalosis resolved after diamox hepatic encephalopathy Resolved has chronically elevated ammonia level,continue lactulose goal 2-3 bm per day, continue rifaximin ILD continue prednisone tapering dose, now on 20 mg daily will wean down to 15 mg today Depression Suicidal ideation, 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 Physical deconditioning Secondary to prolonged hospital stay, recommend out of bed to chair and ambulation t.i.d. being followed by Physical therapy opoioid dependence continue suboxone hcv liver cirrhosis outpatient follow up DVT PPX Eliquis
--- NOTE | 2020-11-11 18:01 | PM.EVENT ---
Event Note Date of Service: 11/11/20 Event Note: TW met with Mirza this afternoon. He was resting comfortably in bed. Somewhat unkempt. A&OX4. Speech clear. Thought process clear, no evidence of psychosis, HI, No AH, VH noted. Patient was agreeable to meeting with me. He reports that he he does have SI, but that he always feels this way . He says that if he goes back out onto the streets , he would most likely choose to intentionally overdose. He says he is fearful of going back out onto the street, as he knows it is no longer appropriate regarding his physical or mental health. He denies any type of current SI, and has no plan or intent at this time. He is currently prescribed suboxone, and reports it is helping manage withdrawals and cravings. Denies any desire to use substances at this time. He says that he has a good senior safety support manager at [facility], that has been trying to find him appropriate housing. He was at a local SNF twice, but he felt that if he stayed there, he would get into a fight . We discussed options, such as attempting to go there again, as the residents that he was arguing with are most likely now discharged. Also, possibly doing a search for a bed in another SNF. He says there is one in [place] he would be willing to go to, and will find out its name. He says that what he really wants is to go to [facility] inpatient [facility] unit. He says that this is because 'they know me there. I'm a homeless vet, with no other place to go . TW did explain that he has several other things to consider. 1. He is weak and physicall ill, with diagnoses of acute on chronic diastolic CHF, A rehab has been recommended by PT. 2. Once he is stronger and more medically stable, if he so chooses, he can go to an ED, to be evaluated by crisis to assess as to whether he requires IPLOC. He says he understands this. He is willing to speak with unit CM to discuss disposition. Patient is not actively suicidal. He has chronic suicidal ideation at baseline, along with anxiety and PTSD. He does not meet IPLOC for psych at this time. He most likely would benefit from a physical rehab facilty, once medically cleared. I have shared this with unit CM directly while on unit. I have communicated my thoughts with Dr. Andrew Miles, via secure messaging. Thank you.
[2020-11-11] MEDS: TiZANidine HCL 4 MG TABLET PO (21:24)
[2020-11-11] MEDS: Mirtazapine 15 MG TABLET PO (21:24)
[2020-11-12] VITALS (7 sets, daily range): BP systolic 126–142; BP diastolic 76–84; PULSE 63–90; RESP 17–20; TEMP 36.2–37; O2SAT 92–96
[2020-11-12] MEDS: 0.9 % Sodium Chloride Flush 3 ML SYRINGE IVFLUSH ×4 (00:37→21:12)
[2020-11-12] MEDS: Magnesium Oxide 400 MG TABLET PO ×2 (08:29→16:26)
[2020-11-12] MEDS: Lactulose 20 GM/30 ML SOLUTION PO ×4 (08:29→21:12)
[2020-11-12] MEDS: FLUoxetine HCl 20 MG CAPSULE 40 MG PO (08:29)
[2020-11-12] MEDS: Furosemide 40 MG TABLET PO ×2 (08:30→16:26)
[2020-11-12] MEDS: Gabapentin 400 MG CAPSULE PO ×3 (08:30→21:11)
[2020-11-12] MEDS: Spironolactone 25 MG TABLET PO (08:30)
[2020-11-12] MEDS: predniSONE 5 MG TABLET 15 MG PO (08:31)
[2020-11-12] MEDS: Miconazole 2 % Extra Thick Cr 56.7 Gm Tube 1 APPL TOPICAL (08:31)
[2020-11-12] MEDS: rifAXIMin 550 MG TABLET PO ×2 (08:31→21:11)
[2020-11-12] MEDS: Apixaban 5 MG TABLET PO ×2 (08:31→21:12)
[2020-11-12] MEDS: Buprenorphine/Naloxone 4/1 mg FILM 1 FILM SUBLINGUAL ×2 (08:31→21:12)
[2020-11-12] MEDS: TiZANidine HCL 4 MG TABLET PO ×2 (09:36→21:19)
[2020-11-12] MEDS: LORazepam 0.5 MG TABLET PO ×2 (09:36→21:19)
--- NOTE | 2020-11-12 13:33 | P.PNIM_ITS ---
Subjective Subjective Date of Service: 11/12/20 Interval History: Patient feels tired otherwise no other acute issues, denies shortness of breath, stable O2 sats on 1 L. ROS [employer] no headache, no dizziness CVS no chest pain, no palpitation GI denies nausea, no vomiting Physical Exam Vital Signs: Vital Signs: Last Vital Signs Temp 97.4 F 11/12/20 11:00 Pulse 74 11/12/20 11:00 Resp 18 11/12/20 11:00 BP 138/82 11/12/20 11:00 Pulse Ox 93 11/12/20 11:00 Body Mass Index 33.5 General: awake alert , answering appropriately Resp: diminished breath sound, few expiratory wheeze, no crackle CVS: S1,S2,RRR GI: soft, non tender, non distended, bowel sounds audible Neuro: Awake alert to place and person, no asterixis, Extremities no pitting edema, discoloration both legs likely due to chronic venous stasis, left leg superficial ulcer, dressing intact Psych: appropriate affect Objective Data Current Medications Generic Name Dose Route Start Last Admin Trade Name Freq PRN Reason Stop Dose Admin Apixaban 5 mg 10/28/20 21:00 11/12/20 08:31 Apixaban 5 Mg Tablet PO 5 mg BID ELISEO Administration Buprenorphine/Naloxone 1 film 10/11/20 09:30 11/12/20 08:31 Buprenorphine/Naloxone 4/1 Mg Film SUBLINGUAL 1 film BID ELISEO Administration Fluoxetine HCl 40 mg 10/10/20 18:30 11/12/20 08:29 Fluoxetine Hcl 20 Mg Capsule PO 40 mg DAILY ELISEO Administration Furosemide 40 mg 11/09/20 18:00 11/12/20 08:30 Furosemide 40 Mg Tablet PO 40 mg BID@0900,1800 ELISEO Administration Protocol Gabapentin 400 mg 10/16/20 10:00 11/12/20 08:30 Gabapentin 400 Mg Capsule PO 400 mg TID ELISEO Administration Lactulose 20 gm 11/07/20 13:15 11/12/20 08:29 Lactulose 20 Gm/30 Ml Solution PO 20 gm QID ELISEO Administration Lorazepam 0.5 mg 11/10/20 16:03 11/12/20 09:36 Lorazepam 0.5 Mg Tablet PO 0.5 mg Q8H PRN Administration Anxiety Magnesium Oxide 400 mg 11/03/20 17:30 11/12/20 08:29 Magnesium Oxide 400 Mg Tablet PO 400 mg BIDPC ELISEO Administration Miconazole Nitrate 1 appl 10/10/20 21:00 11/12/20 08:31 Miconazole 2 % Extra Thick Cr 56.7 Gm Tube TOPICAL 1 appl BID ELISEO Administration Protocol Mirtazapine 15 mg 10/31/20 21:00 11/11/20 21:24 Mirtazapine 15 Mg Tablet PO 15 mg BEDTIME ELISEO Administration Ondansetron HCl 4 mg 10/19/20 14:44 Ondansetron Hcl 4 Mg/2 Ml Vial IVPUSH Q8H PRN Nausea and Vomiting Prednisone 15 mg 11/11/20 09:00 11/12/20 08:31 Prednisone 5 Mg Tablet PO 15 mg DAILY ELISEO Administration Quetiapine Fumarate 100 mg 10/28/20 10:22 11/10/20 20:22 Quetiapine Fumarate 100 Mg Tablet PO 100 mg BEDTIME PRN Administration Restlessness Rifaximin 550 mg 11/09/20 21:00 11/12/20 08:31 Rifaximin 550 Mg Tablet PO 550 mg BID ELISEO Administration Sodium Chloride 3 ml 10/19/20 16:00 11/12/20 08:29 0.9 % Sodium Chloride Flush 3 Ml Syringe IVFLUSH 3 ml QSHIFT ELISEO Administration Spironolactone 25 mg 11/06/20 09:50 11/12/20 08:30 Spironolactone 25 Mg Tablet PO 25 mg DAILY ELISEO Administration Protocol Tizanidine HCl 4 mg 10/16/20 09:57 11/12/20 09:36 Tizanidine Hcl 4 Mg Tablet PO 4 mg Q8H PRN Administration muscle spasm Labs CBC & Chem 7: 11/10/20 05:32 11/10/20 05:32 Quality Stroke Does the patient have a stroke diagnosis?: No VTE Prior VTE?: No VTE Risk Level:: Medical - moderate - high VTE Device Contraindication: N/A - Device Ordered VTE Drug Contraindication: N/A - Med Ordered Assessment and Plan (1) Hepatic encephalopathy: Status: Acute (2) Acute respiratory failure with hypoxia: Status: Acute (3) Pulmonary embolism without acute cor pulmonale: Status: Acute (4) Fluid overload: Status: Acute (5) Depression: Status: Acute (6) ILD (interstitial lung disease): Status: Acute (7) Non-rheumatic tricuspid valve insufficiency: Status: Acute Assessment and Plan: 60M presented with hypoxia while waiting in ED for placement found to have PE. course complicated by chf, hypokalemia, now with hepatic encephalopathy acute hypoxic respiratory failure due to PE No shortness of breath Continue Eliquis 5mg bid, oxygenating 96% on 1 L , if oxygenation remained above 92 will DC oxygen duplex negative for dvt, echo with no RV strain Acute on chronic diastolic CHF Negative BNP, echo showed normal EF with RV dysfunction History of tricuspid insufficiency, venous hypertension Status post IV Lasix, now on by mouth Lasix appears euvolemic ,off metolazone Hypokalemia Potassium improved continue aldactone 25mg daily, follow BMP metabolic alkalosis resolved after diamox hepatic encephalopathy Resolved has chronically elevated ammonia level,continue lactulose goal 2-3 bm per day, continue rifaximin ILD continue prednisone tapering dose, now on 15 mg daily siince 11/11 will wean down to 10 mg in week Depression Suicidal ideation, seen by MUSIC JOURNALIST from Psychiatry they saw patient yesterday and felt patient is not actively suicidal and has chronic suicidal ideation at baseline along with anxiety and PTSD, they feel patient do not need psych admission at this time and recommend short-term rehab due to high medical needs continue Ativan as needed for anxiety, continue Seroquel ,remeron and prozac patient has been on these medications prior to admission. Physical deconditioning Secondary to prolonged hospital stay, recommend out of bed to chair and ambulation t.i.d. being followed by Physical therapy They recommend short-term rehab opoioid dependence continue suboxone hcv liver cirrhosis outpatient follow up DVT PPX Eliquis
--- NOTE | 2020-11-12 14:56 | PC.NURSE ---
Pt was seen today for wound/skin issues. Pt. has venous ulcer to left carney. Xeroform is being applied covered with gauze and wrap. Is slowly healing. Buttocks are pink and blanchable no open areas.
--- NOTE | 2020-11-12 15:09 | MHC.CM.PN ---
Male 60 DX Depression PE substance abuse. DP Patient is accepted at [facility] Sunday. He will transport via BLS. CM will follow.
[2020-11-12] MEDS: Mirtazapine 15 MG TABLET PO (21:12)
[2020-11-12] MEDS: QUEtiapine Fumarate 100 MG TABLET PO (21:21)
[2020-11-13] VITALS (7 sets, daily range): BP systolic 113–145; BP diastolic 66–84; PULSE 62–94; RESP 15–20; TEMP 36.4–37.1; O2SAT 92–96
[2020-11-13] MEDS: TiZANidine HCL 4 MG TABLET PO ×2 (10:03→20:31)
[2020-11-13] MEDS: Apixaban 5 MG TABLET PO ×2 (10:04→20:32)
[2020-11-13] MEDS: Furosemide 40 MG TABLET PO ×2 (10:04→18:02)
[2020-11-13] MEDS: predniSONE 5 MG TABLET 15 MG PO (10:04)
[2020-11-13] MEDS: rifAXIMin 550 MG TABLET PO ×2 (10:04→20:32)
[2020-11-13] MEDS: LORazepam 0.5 MG TABLET PO ×2 (10:04→20:32)
[2020-11-13] MEDS: Magnesium Oxide 400 MG TABLET PO ×2 (10:04→18:02)
[2020-11-13] MEDS: Spironolactone 25 MG TABLET PO (10:04)
[2020-11-13] MEDS: FLUoxetine HCl 20 MG CAPSULE 40 MG PO (10:04)
[2020-11-13] MEDS: Gabapentin 400 MG CAPSULE PO ×3 (10:04→20:32)
[2020-11-13] MEDS: Buprenorphine/Naloxone 4/1 mg FILM 1 FILM SUBLINGUAL ×2 (10:05→20:32)
[2020-11-13] MEDS: Miconazole 2 % Extra Thick Cr 56.7 Gm Tube 1 APPL TOPICAL (10:05)
[2020-11-13] MEDS: Lactulose 20 GM/30 ML SOLUTION PO ×4 (10:05→20:32)
[2020-11-13] MEDS: 0.9 % Sodium Chloride Flush 3 ML SYRINGE IVFLUSH ×3 (10:05→20:32)
--- NOTE | 2020-11-13 13:56 | P.PNIM_ITS ---
Subjective Subjective Date of Service: 11/13/20 Interval History: seen by [facility] psychiatrist yesterday and reference made to her note pt was weaned off O2 successfully other than weakness, denies specific complaints Physical Exam Vital Signs: Vital Signs: Last Vital Signs Temp 97.8 F 11/13/20 11:29 Pulse 71 11/13/20 11:29 Resp 20 11/13/20 11:29 BP 113/71 11/13/20 11:29 Pulse Ox 94 11/13/20 12:32 Body Mass Index 33.5 Gen: in no acute distress HEENT: sclera anicteric, moist mucus membranes Neck: supple Lungs: clear to auscultation bilaterally Heart: regular rate and rhythm, no murmurs Abd: soft, non-tender, non-distended Ext: chronic venous stasis of BLE, LLE with superficial ulcer Skin: warm/well-perfused Neuro: alert and oriented x3, no focal findings, no asterixis Psych: appropriate affect Objective Data Current Medications Generic Name Dose Route Start Last Admin Trade Name Freq PRN Reason Stop Dose Admin Apixaban 5 mg 10/28/20 21:00 11/13/20 10:04 Apixaban 5 Mg Tablet PO 5 mg BID ELISEO Administration Buprenorphine/Naloxone 1 film 10/11/20 09:30 11/13/20 10:05 Buprenorphine/Naloxone 4/1 Mg Film SUBLINGUAL 1 film BID ELISEO Administration Fluoxetine HCl 40 mg 10/10/20 18:30 11/13/20 10:04 Fluoxetine Hcl 20 Mg Capsule PO 40 mg DAILY ELISEO Administration Furosemide 40 mg 11/09/20 18:00 11/13/20 10:04 Furosemide 40 Mg Tablet PO 40 mg BID@0900,1800 ELISEO Administration Protocol Gabapentin 400 mg 10/16/20 10:00 11/13/20 10:04 Gabapentin 400 Mg Capsule PO 400 mg TID ELISEO Administration Lactulose 20 gm 11/07/20 13:15 11/13/20 10:05 Lactulose 20 Gm/30 Ml Solution PO 20 gm QID ELISEO Administration Lorazepam 0.5 mg 11/10/20 16:03 11/13/20 10:04 Lorazepam 0.5 Mg Tablet PO 0.5 mg Q8H PRN Administration Anxiety Magnesium Oxide 400 mg 11/03/20 17:30 11/13/20 10:04 Magnesium Oxide 400 Mg Tablet PO 400 mg BIDPC ELISEO Administration Miconazole Nitrate 1 appl 10/10/20 21:00 11/13/20 10:05 Miconazole 2 % Extra Thick Cr 56.7 Gm Tube TOPICAL 1 appl BID ELISEO Administration Protocol Mirtazapine 15 mg 10/31/20 21:00 11/12/20 21:12 Mirtazapine 15 Mg Tablet PO 15 mg BEDTIME ELISEO Administration Ondansetron HCl 4 mg 10/19/20 14:44 Ondansetron Hcl 4 Mg/2 Ml Vial IVPUSH Q8H PRN Nausea and Vomiting Prednisone 15 mg 11/11/20 09:00 11/13/20 10:04 Prednisone 5 Mg Tablet PO 15 mg DAILY ELISEO Administration Quetiapine Fumarate 100 mg 10/28/20 10:22 11/12/20 21:21 Quetiapine Fumarate 100 Mg Tablet PO 100 mg BEDTIME PRN Administration Restlessness Rifaximin 550 mg 11/09/20 21:00 11/13/20 10:04 Rifaximin 550 Mg Tablet PO 550 mg BID ELISEO Administration Sodium Chloride 3 ml 10/19/20 16:00 11/13/20 10:05 0.9 % Sodium Chloride Flush 3 Ml Syringe IVFLUSH 3 ml QSHIFT ELISEO Administration Spironolactone 25 mg 11/06/20 09:50 11/13/20 10:04 Spironolactone 25 Mg Tablet PO 25 mg DAILY ELISEO Administration Protocol Tizanidine HCl 4 mg 10/16/20 09:57 11/13/20 10:03 Tizanidine Hcl 4 Mg Tablet PO 4 mg Q8H PRN Administration muscle spasm Labs CBC & Chem 7: 11/10/20 05:32 11/10/20 05:32 Quality Stroke Does the patient have a stroke diagnosis?: No VTE Prior VTE?: No VTE Risk Level:: Medical - moderate - high VTE Device Contraindication: N/A - Device Ordered VTE Drug Contraindication: N/A - Med Ordered Assessment and Plan (1) Hepatic encephalopathy: Status: Acute (2) Acute respiratory failure with hypoxia: Status: Acute (3) Pulmonary embolism without acute cor pulmonale: Status: Acute (4) Fluid overload: Status: Acute (5) Depression: Status: Acute (6) ILD (interstitial lung disease): Status: Acute (7) Non-rheumatic tricuspid valve insufficiency: Status: Acute Assessment and Plan: hospital d#26 60yo M awaiting placement in ED developed hypoxia and found to have PE; hospital course complicated by CHF exacerbation, hepatic encephalopathy, hypoK # acute hypoxic respiratory failure due to PE - weakened off O2. continue apixaban - venous Doppler neg for DVT # acute/chronic HFpEF - diuresed with IV furosemide, now on PO maintenance furosemide, off metolazone, continue spironolactone # hypoK - repleted, recheck in AM, continue spironolactone # metabolic alkalosis - resolved after acetazolamide # hepatic encephaloapthy - continue lactulose + rifaximin # ILD - continue slow prednisone taper, on 15 mg/d since 11/11 and decrease to 10 mg/d on 11/18 # depression/anxiety/PTSD - per Psychiatry has chronic SI at baseline but not actively suicidal and does not require psychiatric admission now; continue lorazepam, quetiapine, mirtazapine, fluoxetine # deconditioning due to prolonged hospitalization - PT, STR placement # opioid use disorder - continue Suboxone # liver cirrhosis due to HCV - needs outpt GI/hepatology f/u # VTE ppx - on apixaban # dispo - awaiting STR placement
[2020-11-13] MEDS: Mirtazapine 15 MG TABLET PO (20:32)
[2020-11-13] MEDS: QUEtiapine Fumarate 100 MG TABLET PO (20:32)
[2020-11-14 04:00] VITALS: BP 137/55; PULSE 79; RESP 18; TEMP 36.6; O2SAT 92
[2020-11-14 06:46] LABS: Alanine Aminotransferase 74 U/L (0-40); Albumin Level 2.1 g/dL (3.5-5.0); Alkaline Phosphatase 246 U/L (39-117); Anion Gap 10 (12-20); Aspartate Amino Transferase 95 U/L (5-37); Bilirubin Total 0.4 mg/dL (0.0-1.0); Blood Urea Nitrogen 22 mg/dL (9-16); Calcium 8.1 mg/dL (8.4-10.2); Carbon Dioxide 27 mmol/L (22-29); Chloride 107 mmol/L (96-108); Creatinine Clr Calc Pharmacy 174.8; Estimated Glomerular Filt Rate > 60; Glucose Random 94 mg/dL (60-115); Magnesium 1.8 mg/dL (1.6-2.6); Potassium 4.2 mmol/L (3.3-5.1); Sodium 140 mmol/L (135-145); Total Protein 4.8 g/dL (6.5-8.0)
[2020-11-14 07:50] VITALS: BP 121/58; PULSE 71; RESP 22; TEMP 36.2; O2SAT 92
[2020-11-14] MEDS: Miconazole 2 % Extra Thick Cr 56.7 Gm Tube 1 APPL TOPICAL (09:17)
[2020-11-14] MEDS: rifAXIMin 550 MG TABLET PO ×2 (09:17→20:46)
[2020-11-14] MEDS: predniSONE 5 MG TABLET 15 MG PO (09:17)
[2020-11-14] MEDS: Buprenorphine/Naloxone 4/1 mg FILM 1 FILM SUBLINGUAL ×2 (09:18→20:48)
[2020-11-14] MEDS: Magnesium Oxide 400 MG TABLET PO ×2 (09:18→17:48)
[2020-11-14] MEDS: Apixaban 5 MG TABLET PO ×2 (09:18→20:48)
[2020-11-14] MEDS: Lactulose 20 GM/30 ML SOLUTION PO ×4 (09:18→20:48)
[2020-11-14] MEDS: 0.9 % Sodium Chloride Flush 3 ML SYRINGE IVFLUSH ×2 (09:18→16:18)
[2020-11-14] MEDS: Spironolactone 25 MG TABLET PO (09:18)
[2020-11-14] MEDS: FLUoxetine HCl 20 MG CAPSULE 40 MG PO (09:18)
[2020-11-14] MEDS: Gabapentin 400 MG CAPSULE PO ×3 (09:18→20:46)
[2020-11-14] MEDS: Furosemide 40 MG TABLET PO ×2 (09:18→17:49)
[2020-11-14] MEDS: LORazepam 0.5 MG TABLET PO ×2 (09:21→20:48)
[2020-11-14] MEDS: TiZANidine HCL 4 MG TABLET PO ×2 (09:21→20:48)
[2020-11-14 11:40] VITALS: BP 100/60; PULSE 69; RESP 20; TEMP 36.6; O2SAT 90
--- NOTE | 2020-11-14 12:00 | HO.PM.IMPN ---
Subjective Subjective Date of Service: 11/14/20 Interval History: Offers no new complaints. Grateful to be off fluid restriction. No chest pain. No dyspnea. Physical Exam Vital Signs: Vital Signs: Last Vital Signs Temp 97.9 F 11/14/20 11:40 Pulse 69 11/14/20 11:40 Resp 20 11/14/20 11:40 BP 100/60 11/14/20 11:40 Pulse Ox 90 L 11/14/20 11:40 Body Mass Index 33.5 Gen: in no acute distress HEENT: sclera anicteric, moist mucus membranes Neck: supple Lungs: clear to auscultation bilaterally Heart: regular rate and rhythm, no murmurs Abd: soft, non-tender, non-distended Ext: chronic venous stasis of BLE, LLE with superficial ulcer Skin: warm/well-perfused Neuro: alert and oriented x3, no focal findings, no asterixis Psych: appropriate affect Objective Data Current Medications Generic Name Dose Route Start Last Admin Trade Name Freq PRN Reason Stop Dose Admin Apixaban 5 mg 10/28/20 21:00 11/14/20 09:18 Apixaban 5 Mg Tablet PO 5 mg BID ELISEO Administration Buprenorphine/Naloxone 1 film 10/11/20 09:30 11/14/20 09:18 Buprenorphine/Naloxone 4/1 Mg Film SUBLINGUAL 1 film BID ELISEO Administration Fluoxetine HCl 40 mg 10/10/20 18:30 11/14/20 09:18 Fluoxetine Hcl 20 Mg Capsule PO 40 mg DAILY ELISEO Administration Furosemide 40 mg 11/09/20 18:00 11/14/20 09:18 Furosemide 40 Mg Tablet PO 40 mg BID@0900,1800 ELISEO Administration Protocol Gabapentin 400 mg 10/16/20 10:00 11/14/20 09:18 Gabapentin 400 Mg Capsule PO 400 mg TID ELISEO Administration Lactulose 20 gm 11/07/20 13:15 11/14/20 09:18 Lactulose 20 Gm/30 Ml Solution PO 20 gm QID ELISEO Administration Lorazepam 0.5 mg 11/10/20 16:03 11/14/20 09:21 Lorazepam 0.5 Mg Tablet PO 0.5 mg Q8H PRN Administration Anxiety Magnesium Oxide 400 mg 11/03/20 17:30 11/14/20 09:18 Magnesium Oxide 400 Mg Tablet PO 400 mg BIDPC ELISEO Administration Miconazole Nitrate 1 appl 10/10/20 21:00 11/14/20 09:17 Miconazole 2 % Extra Thick Cr 56.7 Gm Tube TOPICAL 1 appl BID ELISEO Administration Protocol Mirtazapine 15 mg 10/31/20 21:00 11/13/20 20:32 Mirtazapine 15 Mg Tablet PO 15 mg BEDTIME ELISEO Administration Ondansetron HCl 4 mg 10/19/20 14:44 Ondansetron Hcl 4 Mg/2 Ml Vial IVPUSH Q8H PRN Nausea and Vomiting Prednisone 15 mg 11/11/20 09:00 11/14/20 09:17 Prednisone 5 Mg Tablet PO 15 mg DAILY ELISEO Administration Quetiapine Fumarate 100 mg 10/28/20 10:22 11/13/20 20:32 Quetiapine Fumarate 100 Mg Tablet PO 100 mg BEDTIME PRN Administration Restlessness Rifaximin 550 mg 11/09/20 21:00 11/14/20 09:17 Rifaximin 550 Mg Tablet PO 550 mg BID ELISEO Administration Sodium Chloride 3 ml 10/19/20 16:00 11/14/20 09:18 0.9 % Sodium Chloride Flush 3 Ml Syringe IVFLUSH 3 ml QSHIFT ELISEO Administration Spironolactone 25 mg 11/06/20 09:50 11/14/20 09:18 Spironolactone 25 Mg Tablet PO 25 mg DAILY ELISEO Administration Protocol Tizanidine HCl 4 mg 10/16/20 09:57 11/14/20 09:21 Tizanidine Hcl 4 Mg Tablet PO 4 mg Q8H PRN Administration muscle spasm Labs CBC & Chem 7: 11/10/20 05:32 11/14/20 05:04 Labs: Laboratory Results - last 24 hr 11/14/20 05:04 Sodium 140 Potassium 4.2 Chloride 107 Carbon Dioxide 27 Anion Gap 10 L BUN 22 H Creatinine 0.59 Estim Creat Clear Calc 174.8 Estimated GFR > 60 Random Glucose 94 Calcium 8.1 L Magnesium 1.8 Total Bilirubin 0.4 AST 95 H ALT 74 H Alkaline Phosphatase 246 H Total Protein 4.8 L Albumin 2.1 L D Quality Stroke Does the patient have a stroke diagnosis?: No VTE Prior VTE?: No VTE Risk Level:: Medical - moderate - high VTE Device Contraindication: N/A - Device Ordered VTE Drug Contraindication: N/A - Med Ordered Assessment and Plan (1) Hepatic encephalopathy: Status: Acute (2) Acute respiratory failure with hypoxia: Status: Acute (3) Pulmonary embolism without acute cor pulmonale: Status: Acute (4) Fluid overload: Status: Acute (5) Depression: Status: Acute (6) ILD (interstitial lung disease): Status: Acute (7) Non-rheumatic tricuspid valve insufficiency: Status: Acute Assessment and Plan: hospital d#27 60yo M awaiting SNF placement in ED developed hypoxia and found to have PE; hospital course complicated by CHF exacerbation, hepatic encephalopathy, hypoK # acute hypoxic respiratory failure due to PE - weaned off O2. continue apixaban # acute/chronic HFpEF - diuresed with IV furosemide, now euvolemic on PO maintenance furosemide, off metolazone, continue spironolactone # hypoK - repleted # metabolic alkalosis - resolved after acetazolamide # hepatic encephaloapthy - continue lactulose + rifaximin # ILD - continue slow prednisone taper, on 15 mg/d since 11/11 and to decrease to 10 mg/d on 11/18 # depression/anxiety/PTSD - per Psychiatry has chronic SI at baseline but not actively suicidal and does not require psychiatric admission now; continue lorazepam, quetiapine, mirtazapine, fluoxetine # deconditioning due to prolonged hospitalization - PT, STR placement # opioid use disorder - continue Suboxone # liver cirrhosis due to HCV - needs outpt GI/hepatology f/u # VTE ppx - on apixaban # dispo - awaiting STR placement
[2020-11-14] MEDS: oxyCODONE HCl Immed Release 5 MG TABLET PO (13:01)
[2020-11-14 15:39] VITALS: BP 118/71; PULSE 83; RESP 19; TEMP 36.6; O2SAT 93
[2020-11-14 19:48] VITALS: BP 119/70; PULSE 86; RESP 19; TEMP 36; O2SAT 91
[2020-11-14] MEDS: QUEtiapine Fumarate 100 MG TABLET PO (20:47)
[2020-11-14] MEDS: Mirtazapine 15 MG TABLET PO (20:48)
[2020-11-15] MEDS: 0.9 % Sodium Chloride Flush 3 ML SYRINGE IVFLUSH ×3 (00:26→14:10)
[2020-11-15 00:28] VITALS: BP 124/70; PULSE 90; RESP 18; TEMP 36.2; O2SAT 91
[2020-11-15 07:24] VITALS: BP 126/80; PULSE 81; RESP 19; TEMP 36.2; O2SAT 93
[2020-11-15] MEDS: LORazepam 0.5 MG TABLET PO (08:41)
[2020-11-15] MEDS: predniSONE 5 MG TABLET 15 MG PO (08:41)
[2020-11-15] MEDS: TiZANidine HCL 4 MG TABLET PO (08:42)
[2020-11-15 08:43] VITALS: BP 126/80
[2020-11-15] MEDS: FLUoxetine HCl 20 MG CAPSULE 40 MG PO (08:43)
[2020-11-15] MEDS: Gabapentin 400 MG CAPSULE PO ×2 (08:43→14:10)
[2020-11-15] MEDS: Spironolactone 25 MG TABLET PO (08:43)
[2020-11-15] MEDS: Buprenorphine/Naloxone 4/1 mg FILM 1 FILM SUBLINGUAL ×2 (08:44→18:04)
[2020-11-15] MEDS: Apixaban 5 MG TABLET PO (08:44)
[2020-11-15] MEDS: Magnesium Oxide 400 MG TABLET PO ×2 (08:44→16:36)
[2020-11-15] MEDS: rifAXIMin 550 MG TABLET PO (08:44)
[2020-11-15] MEDS: Furosemide 40 MG TABLET PO (08:44)
[2020-11-15] MEDS: Lactulose 20 GM/30 ML SOLUTION PO ×3 (08:44→16:36)
[2020-11-15] MEDS: Miconazole 2 % Extra Thick Cr 56.7 Gm Tube 1 APPL TOPICAL (08:46)
[2020-11-15 09:44] VITALS: BP 126/80
[2020-11-15 11:19] VITALS: BP 149/77; PULSE 83; RESP 18; TEMP 36.6; O2SAT 92
--- NOTE | 2020-11-15 13:30 | MHC.CM.PN ---
Male 60 DX depression Opiate disorder. DP is to [facility] today. He is accepted, waiting for receiving facility to confirm today.
--- NOTE | 2020-11-15 14:30 | HO.PM.IMPN ---
Subjective Subjective Date of Service: 11/15/20 Interval History: no new complaints awaiting placement Physical Exam Vital Signs: Vital Signs: Last Vital Signs Temp 97.9 F 11/15/20 11:19 Pulse 83 11/15/20 11:19 Resp 18 11/15/20 11:19 BP 149/77 H 11/15/20 11:19 Pulse Ox 92 11/15/20 11:19 Body Mass Index 33.5 Gen: in no acute distress HEENT: sclera anicteric, moist mucus membranes Neck: supple Lungs: clear to auscultation bilaterally Heart: regular rate and rhythm, no murmurs Abd: soft, non-tender, non-distended Ext: chronic venous stasis of BLE, LLE with superficial ulcer Skin: warm/well-perfused Neuro: alert and oriented x3, no focal findings, no asterixis Psych: appropriate affect Objective Data Current Medications Generic Name Dose Route Start Last Admin Trade Name Freq PRN Reason Stop Dose Admin Apixaban 5 mg 10/28/20 21:00 11/15/20 08:44 Apixaban 5 Mg Tablet PO 5 mg BID ELISEO Administration Buprenorphine/Naloxone 1 film 10/11/20 09:30 11/15/20 08:44 Buprenorphine/Naloxone 4/1 Mg Film SUBLINGUAL 1 film BID ELISEO Administration Fluoxetine HCl 40 mg 10/10/20 18:30 11/15/20 08:43 Fluoxetine Hcl 20 Mg Capsule PO 40 mg DAILY ELISEO Administration Furosemide 40 mg 11/09/20 18:00 11/15/20 08:44 Furosemide 40 Mg Tablet PO 40 mg BID@0900,1800 ELISEO Administration Protocol Gabapentin 400 mg 10/16/20 10:00 11/15/20 14:10 Gabapentin 400 Mg Capsule PO 400 mg TID ELISEO Administration Lactulose 20 gm 11/07/20 13:15 11/15/20 13:40 Lactulose 20 Gm/30 Ml Solution PO 20 gm QID ELISEO Administration Lorazepam 0.5 mg 11/10/20 16:03 11/15/20 08:41 Lorazepam 0.5 Mg Tablet PO 0.5 mg Q8H PRN Administration Anxiety Magnesium Oxide 400 mg 11/03/20 17:30 11/15/20 08:44 Magnesium Oxide 400 Mg Tablet PO 400 mg BIDPC ELISEO Administration Miconazole Nitrate 1 appl 10/10/20 21:00 11/15/20 08:46 Miconazole 2 % Extra Thick Cr 56.7 Gm Tube TOPICAL 1 appl BID ELISEO Administration Protocol Mirtazapine 15 mg 10/31/20 21:00 11/14/20 20:48 Mirtazapine 15 Mg Tablet PO 15 mg BEDTIME ELISEO Administration Ondansetron HCl 4 mg 10/19/20 14:44 Ondansetron Hcl 4 Mg/2 Ml Vial IVPUSH Q8H PRN Nausea and Vomiting Oxycodone HCl 5 mg 11/14/20 12:01 11/14/20 13:01 Oxycodone Hcl Immed Release 5 Mg Tablet PO 5 mg Q6H PRN Administration headache Prednisone 15 mg 11/11/20 09:00 11/15/20 08:41 Prednisone 5 Mg Tablet PO 15 mg DAILY ELISEO Administration Quetiapine Fumarate 100 mg 10/28/20 10:22 11/14/20 20:47 Quetiapine Fumarate 100 Mg Tablet PO 100 mg BEDTIME PRN Administration Restlessness Rifaximin 550 mg 11/09/20 21:00 11/15/20 08:44 Rifaximin 550 Mg Tablet PO 550 mg BID ELISEO Administration Sodium Chloride 3 ml 10/19/20 16:00 11/15/20 14:10 0.9 % Sodium Chloride Flush 3 Ml Syringe IVFLUSH 3 ml QSHIFT ELISEO Administration Spironolactone 25 mg 11/06/20 09:50 11/15/20 08:43 Spironolactone 25 Mg Tablet PO 25 mg DAILY ELISEO Administration Protocol Tizanidine HCl 4 mg 10/16/20 09:57 11/15/20 08:42 Tizanidine Hcl 4 Mg Tablet PO 4 mg Q8H PRN Administration muscle spasm Labs CBC & Chem 7: 11/10/20 05:32 11/14/20 05:04 Quality Stroke Does the patient have a stroke diagnosis?: No VTE Prior VTE?: No VTE Risk Level:: Medical - moderate - high VTE Device Contraindication: N/A - Device Ordered VTE Drug Contraindication: N/A - Med Ordered Assessment and Plan (1) Hepatic encephalopathy: Status: Acute (2) Acute respiratory failure with hypoxia: Status: Acute (3) Pulmonary embolism without acute cor pulmonale: Status: Acute (4) Fluid overload: Status: Acute (5) Depression: Status: Acute (6) ILD (interstitial lung disease): Status: Acute (7) Non-rheumatic tricuspid valve insufficiency: Status: Acute Assessment and Plan: hospital d#28 60yo M awaiting SNF placement in ED developed hypoxia and found to have PE; hospital course complicated by CHF exacerbation, hepatic encephalopathy, hypoK # acute hypoxic respiratory failure due to PE - weaned off O2. continue apixaban # acute/chronic HFpEF - diuresed with IV furosemide, now euvolemic on PO maintenance furosemide, off metolazone, continue spironolactone # hypoK - repleted # metabolic alkalosis - resolved after acetazolamide # hepatic encephaloapthy - continue lactulose + rifaximin # ILD - continue slow prednisone taper, on 15 mg/d since 11/11 and to decrease to 10 mg/d on 11/18 # depression/anxiety/PTSD - per Psychiatry has chronic SI at baseline but not actively suicidal and does not require psychiatric admission now; continue lorazepam, quetiapine, mirtazapine, fluoxetine # deconditioning due to prolonged hospitalization - PT, STR placement # opioid use disorder - continue Suboxone # liver cirrhosis due to HCV - needs outpt GI/hepatology f/u # VTE ppx - on apixaban # dispo - awaiting STR placement
[2020-11-15 15:10] VITALS: BP 122/72; PULSE 86; RESP 18; TEMP 36.3; O2SAT 92
[2020-11-15 17:18] LABS: COVID-19 Test Negative (Negative)
--- NOTE | 2020-11-15 17:27 | PM.DS ---
DS: Providers Provider Date of Service: 11/15/20 Date of admission: 10/19/20 14:48 Primary care physician: None Physician Consults: 10/19/20 16:50 Consult to Pulmonology Routine Consulting Provider: Brian Tierney Reason for consultation: ILD, PE 10/22/20 09:53 Consult to Crisis Stat Reason for consultation: depression, no SI, patient requesting inpatient psych admission, med clear 10/22/20 10:09 Consult to Care Team Routine Comment: Reason for consultation: depression 10/31/20 14:30 Consult to Psychiatry Routine Consulting Provider: Neal Preston Reason for consultation: Evaluate the need for inpatient psych. SI with no clear intention or plan 11/10/20 16:03 Consult to Care Team Routine Comment: Reason for consultation: anxiety/depression Consult to Crisis Stat Reason for consultation: suicidal Has provider been notified: No DS: Diagnosis Discharge Diagnosis (1) Hepatic encephalopathy: Status: Acute (2) Acute respiratory failure with hypoxia: Status: Acute (3) Pulmonary embolism without acute cor pulmonale: Status: Acute (4) Fluid overload: Status: Acute (5) Depression: Status: Acute (6) ILD (interstitial lung disease): Status: Acute (7) Non-rheumatic tricuspid valve insufficiency: Status: Acute (8) Acute on chronic heart failure with preserved ejection fraction (HFpEF): Status: Acute (9) Chronic hepatitis C virus infection with cirrhosis: Status: Acute DS: Medications Discharge Medications Home Medications: Home Medications Medication Instructions Recorded Confirmed gabapentin 1 cap PO TID 10/16/20 10/16/20 tizanidine 1 tab PO Q8H PRN 10/16/20 10/16/20 Previous Rx's Medication Instructions Recorded fluoxetine 40 mg PO DAILY #30 cap 06/28/20 mirtazapine 7.5 mg PO BEDTIME #30 tab 06/28/20 lorazepam 0.5 mg PO Q8H PRN #10 tab 09/30/20 miconazole nitrate [Inzo 1 appl TOPICAL BID #30 g 09/30/20 Antifungal] apixaban [Eliquis] 5 mg PO BID 30 Days #60 tab 10/29/20 furosemide [Lasix] 40 mg PO BID #60 tab 10/29/20 prednisone See Rx Instructions .ROUTE 10/29/20 .COMPLEX #15 tab quetiapine 2 tab PO DAILY PRN #0 tab 10/29/20 buprenorphine-naloxone [Suboxone] 1 film SUBLINGUAL BID #56 ea 11/15/20 lactulose 20 g PO QID #1 ml 11/15/20 prednisone 15 mg PO DAILY #1 tab 11/15/20 rifaximin [Xifaxan] 550 mg PO BID #1 tab 11/15/20 spironolactone 25 mg PO DAILY #1 tab 11/15/20 DS: Summary Hospital Course Hospital Course: From admission history and physical by hospitalist Star Marin, 10/19/20: This is a 60-year-old female with a past medical history as outlined below who is well known to the [facility] as well as inpatient services from prior admissions. The patient had a prolonged hospitalization from 09/02 until 09/30/2020 where he was treated for a multitude of things including pneumonia, heart failure, respiratory failure. He required treatment in the intensive care and was under mechanical ventilation. He was able to be successfully weaned from the ventilator and subsequently transitioned to the floor where his treatment was continued and ultimately he was discharged to short-term rehabilitation. Through chart review it appears that the patient did indeed go to short-term rehabilitation only to sign out against medical advice shortly thereafter. The patient presented back to [facility], it appears with complaints of weakness and leg pain. His medical evaluation at that time did not meet inpatient level of care and so he has been boarding in the ED. again from chart review it appears that 183 referrals have been made, however he has not been accepted. At some point this morning it appears that the patient went into respiratory distress with saturations dropping to the mid 70s on room air. Rest was called and the patient was placed on BiPAP and repeat blood work was initiated. He was successfully able to be weaned from BiPAP down to nasal cannula. His chest x-ray revealed increased interstitial markings with superimposed interstitial pneumonitis or edema. [place] [id number], which increased from 16,000 only 2 days prior. He had cultures drawn and was given broad-spectrum IV antibiotics for possibility of pneumonia. A CTA of the chest to rule out pulmonary embolism has been requested and pending at this time. Patient is seen and examined the emergency room. He reports that he is breathing better now than he was this morning. He denies any chest pain. He does endorse nonproductive cough and shortness of breath. He also endorses constipation. At this time he is denying any SI. The patient was waiting rehabilitation placement in the emergency when he started to have shortness of breath. He was evaluated and admitted for acute hypoxic respiratory failure. Workup with CTA was positive for pulmonary embolism. The patient was treated with therapeutic enoxaparin, which was transitioned to apixaban 10 mg b.i.d. for 1 week then 5 mg twice b.i.d. He was treated with a steroid taper for exacerbation of underlying interstitial lung disease. He was weaned off oxygen. He will need outpatient Pulmonology follow-up. He had evidence of fluid overload and was diuresed with IV furosemide, then transitioned to PO furosemide plus spironolactone. He was diagnosed with hepatic encephalopathy and was treated with rifaximin and lactulose. He will need outpatient GI consultation for care of cirrhosis and treatment of HCV; he also needs a primary care provider. He was evaluated multiple times by psychiatry and was deemed to not meet criteria for inpatient psychiatric care. His psychiatric medications were continued, along with Suboxone. Due to deconditioning, he was discharged to [facility] for short-term rehabilitation. Time Spent with Patient Time attestation: Total time spent providing and/or coordinating discharge services: 45 Discharge coordination time: Greater than 30 minutes Quality: Stroke Does the patient have a stroke diagnosis?: No Physical Exam Vital Signs: Vital Signs: Last Vital Signs Temp 97.4 F 11/15/20 15:10 Pulse 86 11/15/20 15:10 Resp 18 11/15/20 15:10 BP 122/72 11/15/20 15:10 Pulse Ox 92 11/15/20 15:10 Body Mass Index 33.5 Gen: in no acute distress HEENT: sclera anicteric, moist mucus membranes Neck: supple Lungs: clear to auscultation bilaterally Heart: regular rate and rhythm, no murmurs Abd: soft, non-tender, non-distended Ext: chronic venous stasis of BLE, LLE with superficial ulcer Skin: warm/well-perfused Neuro: alert and oriented x3, no focal findings, no asterixis Psych: appropriate affect DS: Data Data Completed and Pending Completed studies during hospitalization [Text1]: Laboratory Results WBC 13.9 X10*3/uL (4.8-10.8) H 11/10/20 05:32 RBC 3.70 X10*6/uL (4.60-5.80) L 11/10/20 05:32 Hgb 10.7 g/dl (14.0-18.0) L 11/10/20 05:32 Hct 33.6 % (42-52) L 11/10/20 05:32 MCV 90.8 fL (80-98) 11/10/20 05:32 MCH 28.9 pg (27.0-33.0) 11/10/20 05:32 MCHC 31.8 g/dl (31.0-36.0) 11/10/20 05:32 RDW 18.8 % (11.0-16.0) H 11/10/20 05:32 Plt Count 384 X10*3/uL (160-400) 11/10/20 05:32 MPV 10.6 fL (9.4-12.4) 11/10/20 05:32 Immature Gran % (Auto) 0.7 % (0.0-0.4) H 10/29/20 08:48 Neut % (Auto) 53.9 % (45-73) 10/29/20 08:48 Lymph % (Auto) 32.0 % (20-40) 10/29/20 08:48 [place] % (Auto) 10.2 % (2-11) 10/29/20 08:48 Eos % (Auto) 3.0 % (0-4) 10/29/20 08:48 Baso % (Auto) 0.2 % (0-2) 10/29/20 08:48 Lymph # (Auto) 5.9 X10*3/uL (1.2-4.9) H 10/29/20 08:48 [place] # (Auto) 1.9 X10*3/uL (0.1-1.2) H 10/29/20 08:48 Eos # (Auto) 0.6 X10*3/uL (0.0-0.4) H 10/29/20 08:48 Baso # (Auto) 0.0 X10*3/uL (0.0-0.2) 10/29/20 08:48 Abs Immat Gran (auto) 0.13 X10*3/uL (0.00-0.03) H 10/29/20 08:48 Absolute Neuts (auto) 10.0 X10*3/uL (2.0-8.3) H 10/29/20 08:48 Absolute Nucleated RBC 0.000 X10*3/uL (0.0-0.012) 11/10/20 05:32 Nucleated RBC % (auto) 0.0 /100WBC (0.0-0.2) 11/10/20 05:32 Smear Tech's Comments VERIFIED 10/29/20 08:48 ESR 3 MM/HR (0-15) 10/10/20 09:45 PT 15.4 SEC (10.8-13.0) H D 10/10/20 09:45 INR 1.3 (0.9-1.1) H 10/10/20 09:45 APTT 29.6 SEC (24.1-38.0) 10/10/20 09:45 D-Dimer 84950 NG/ML 10/19/20 14:04 O2 Saturation 99.0 % 10/18/20 18:53 ABG pH at Pt Temp 7.43 (7.35-7.45) 10/18/20 18:53 ABG pCO2 at Pt Temp 41 mmHg (32-45) 10/18/20 18:53 ABG pO2 at Pt Temp 184 mmHg (83-108) H 10/18/20 18:53 ABG HCO3 27 mmol/L (22-26) H 10/18/20 18:53 ABG Base Excess (Actual) 3.1 mmol/L 10/18/20 18:53 VBG pH 7.49 (7.32-7.43) H 11/07/20 12:25 VBG pCO2 40 mmHg 11/07/20 12:25 VBG pO2 69 mmHg 11/07/20 12:25 VBG HCO3 31 mmol/L (22-26) H 11/07/20 12:25 VBG O2 Saturation 93.0 % 11/07/20 12:25 VBG Base Excess 7.2 mmol/L 11/07/20 12:25 Sodium 140 mmol/L (135-145) 11/14/20 05:04 Potassium 4.2 mmol/L (3.3-5.1) 11/14/20 05:04 Chloride 107 mmol/L (96-108) 11/14/20 05:04 Carbon Dioxide 27 mmol/L (22-29) 11/14/20 05:04 Anion Gap 10 (12-20) L 11/14/20 05:04 BUN 22 mg/dL (9-16) H 11/14/20 05:04 Creatinine 0.59 mg/dL (0.5-1.4) 11/14/20 05:04 Estim Creat Clear Calc 174.8 11/14/20 05:04 Estimated GFR > 60 11/14/20 05:04 POC Glucose 213 mg/dL (60-115) H 10/21/20 04:05 Random Glucose 94 mg/dL (60-115) 11/14/20 05:04 Fasting Glucose 104 mg/dL (60-99) H 11/10/20 05:32 Estimat Average Glucose 103 mg/dL 10/21/20 04:15 Hemoglobin A1c % 5.2 % 10/21/20 04:15 Lactic Acid 3.1 mmol/L (0.5-2.0) H* 10/19/20 12:53 Lactic Acid Fup @ 2Hr 3.6 mmol/L (0.5-2.0) H* 10/19/20 15:33 Lactic Acid Fup @ 4Hr 2.7 mmol/L (0.5-2.0) H* 10/19/20 18:24 Calcium 8.1 mg/dL (8.4-10.2) L 11/14/20 05:04 Magnesium 1.8 mg/dL (1.6-2.6) 11/14/20 05:04 Total Bilirubin 0.4 mg/dL (0.0-1.0) 11/14/20 05:04 AST 95 U/L (5-37) H 11/14/20 05:04 ALT 74 U/L (0-40) H 11/14/20 05:04 Alkaline Phosphatase 246 U/L (39-117) H 11/14/20 05:04 Ammonia 92 umol/L (13-55) H 11/10/20 05:32 Total Creatine Kinase 70 U/L (38-174) D 10/10/20 09:45 Troponin I High Sens 12.0 ng/L (<3.5-35.0) 10/19/20 09:54 C-Reactive Protein 3.08 mg/dL (< or = 0.50) H 10/10/20 09:45 B-Natriuretic Peptide < 10 pg/mL (<100) 11/03/20 04:50 Total Protein 4.8 g/dL (6.5-8.0) L 11/14/20 05:04 Albumin 2.1 g/dL (3.5-5.0) L D 11/14/20 05:04 Vitamin B12 516 pg/mL (200-900) 11/01/20 11:39 25-OH Vitamin D Total 8.5 ng/mL (>30) 11/01/20 11:39 Folate 15.8 ng/mL (> or = 4.0) 11/01/20 11:39 Procalcitonin 0.04 ng/mL 10/19/20 09:54 TSH 2.33 uIU/mL (0.32-4.0) 11/01/20 11:39 [place] Serum IgG Ab NEGATIVE (NEGATIVE) 10/21/20 04:15 Urine Color STRAW 10/19/20 12:45 Urine Appearance CLEAR 10/19/20 12:45 Urine pH 6.0 (5.0-8.0) 10/19/20 12:45 Ur Specific [place] 1.015 (1.005-1.025) 10/19/20 12:45 Urine Protein NEG MG/DL (NEG-TRACE) 10/19/20 12:45 Urine Glucose (UA) NEG MG/DL (NEG) 10/19/20 12:45 Urine Ketones NEG MG/DL (NEG) 10/19/20 12:45 Urine Blood NEG (NEG) 10/19/20 12:45 Urine Nitrite NEG (NEG) 10/19/20 12:45 Ur Leukocyte Esterase NEG (NEG) 10/19/20 12:45 IgE 34 kU/L (<TN=553) 10/21/20 04:15 Cycl Citrul Peptide IgG <16 UNITS 10/21/20 04:15 EMANUEL Screen NEGATIVE (NEGATIVE) 10/21/20 04:15 EMANUEL Titer TNP 10/21/20 04:15 EMANUEL Titer 2 TNP 10/21/20 04:15 EMANUEL Titer 3 TNP 10/21/20 04:15 EMANUEL Pattern TNP 10/21/20 04:15 EMANUEL Pattern 2 TNP 10/21/20 04:15 EMANUEL Pattern 3 TNP 10/21/20 04:15 COVID-19 (MARISELA) Negative (Negative) 11/15/20 16:45 COVID-19 Clin Com See Note 11/15/20 16:45 HIV 1&2 Ab/P24 Ag 4thGn Nonreactive (Nonreactive) 10/21/20 04:15 Saccharo. viridis Ab NEGATIVE (NEGATIVE) 10/21/20 04:15 T. candidus Antibody NEGATIVE (NEGATIVE) 10/21/20 04:15 T. vulgaris 1 Antibody NEGATIVE (NEGATIVE) 10/21/20 04:15 Aspergill fumigatus Ab NEGATIVE (NEGATIVE) 10/21/20 04:15 Micropolyspora faeni Ab NEGATIVE (NEGATIVE) 10/21/20 04:15 SARS-CoV-2 IgG Ab Negative (Negative) 10/21/20 04:[address] 10/10/20 08:55 IMPRESSION: Moderate patchy areas of low-density change in the cerebral white matter which are nonspecific and similar to prior imaging. Findings may be due to chronic microangiopathy. Tibia/Fibula X-Ray 10/10/20 09:02 IMPRESSION: Normal left tibia and fibula. No x-ray evidence for osteomyelitis Chest X-Ray 10/19/20 10:50 IMPRESSION: Hypoexpanded lungs with increase interstitial markings likely chronic. Superimposed interstitial pneumonitis or edema cannot be excluded. There is no major change compared to previous study 10/18/2020 Chest CTA 10/19/20 13:03 IMPRESSION: Left lower lobe segmental and subsegmental pulmonary emboli. Diffuse interstitial disease. Scattered areas of increased groundglass attenuation. I denser peripheral or subpleural parenchymal densities in the right lower lobe. This probably represents resolving infection. Cirrhosis, small amount of ascites, and varices. Small right renal stones. Multiple thoracic vertebral body compression fractures. VTE: positive Venous Duplex 10/21/20 16:19 IMPRESSION: Limited exam. No DVT seen. Patient refused evaluation of the veins in the left calf. 10/21/20 TTE limited - Normal right ventricular cavity size and systolic function. - Mild pulmonary hypertension is present. Labs on day of discharge: Laboratory Results - last 24 hr 11/15/20 16:45 COVID-19 (MARISELA) Negative COVID-19 Clin Com See Note Discharge Plan Discharge Patient Disposition: Xfer SNF Discharge Diagnosis: pulmonary embolism, CHF exacerbation, hepatic encephalopathy Referrals: Mikal Anton PA-C [Physician Dispatcher [employer]] - 1 Week Physician,Juany [Primary Care Provider] - 1 Week Neal Preston MD [Physician] - 1 Week Micheal Coy MD [Physician] - 1 Week Brian Tierney MD [Physician] - 1 Week Discharge Medications: New prednisone 10 mg Tablet See Rx Instructions .ROUTE .COMPLEX Qty: 15 RF: 0 Eliquis 5 mg Tablet 5 mg PO BID 30 Days Qty: 60 RF: 0 furosemide [Lasix] 40 mg tablet 40 mg PO BID Qty: 60 RF: 0 buprenorphine-naloxone [Suboxone] 4-1 mg film 1 film sublingual BID Qty: 56 RF: 0 prednisone 5 mg Tablet 15 mg PO DAILY Qty: 1 RF: 0 Xifaxan 550 mg Tablet 550 mg PO BID Qty: 1 RF: 0 lactulose 20 gram/30 mL Solution 20 g PO QID Qty: 1 RF: 0 spironolactone 25 mg Tablet 25 mg PO DAILY Qty: 1 RF: 0 Continued miconazole nitrate [Inzo Antifungal] 2 % Cream 1 appl topical BID Qty: 30 RF: 0 lorazepam 0.5 mg Tablet 0.5 mg PO Q8H PRN (Reason: Anxiety) Qty: 10 RF: 0 mirtazapine 7.5 mg Tablet 7.5 mg PO BEDTIME Qty: 30 RF: 0 fluoxetine 20 mg capsule 40 mg PO DAILY Qty: 30 RF: 0 tizanidine 4 mg tablet 1 tab PO Q8H PRN (Reason: muscle spasm) RF: 0 gabapentin 400 mg capsule 1 cap PO TID RF: 0 Changed quetiapine 50 mg tablet 2 tab PO DAILY PRN (Reason: Agitation) Qty: 0 RF: 0 Discontinued furosemide 20 mg Tablet 20 mg PO DAILY Qty: 30 RF: 0 prednisone 10 mg tablet See Taper mg PO DAILY Qty: 90 RF: 0 Discharge Orders: Discharge Order (Routine); Ordered 11/15/20 Ordered By: Alyssia Mcgee Diet: advance to usual diet and low salt diet Activity on Discharge: As tolerated Stand Alone Forms: Patient Portal Discharge page Care Plan Goals: physical and mental health avoid hospitalization maintain sobriety Health Concerns: pulmonary embolism CHF exacerbation hepatic encephalopathy interstitial lung disease opioid use disorder cirrhosis Plan of Treatment: take apixaban 5 mg twice daily low-sodium diet; take furosemide 40 mg twice daily and spironolactone 25 mg daily taper prednisone: take 15 mg/d, then decrease to 10 mg/d on 11/18/20, then 5 mg/d on 11/25/20, then stop on 12/02/20 continue Suboxone for opioid use disorder AVOID alcohol and all liver toxins you need to establish primary care KIMBERLYN and then get referred to GI for care of your cirrhotic liver and treatment of your hepatitis C virus take lactulose and rifaximin to avoid hepatic encephalopathy Assessment: as above anticipated length of stay at SNF less than 30d
== END 2020-11-15 18:41 | disposition skilled nursing facility (03) | DRG 134 ==
LOC: HO.ED 10:17 → HO.EDOVER 10-19 14:50 → HO.IMC 10-19 16:34
PROVIDERS: Clinical Nurse Specialist Psychiatric/Mental Health, Adult; Hospitalist; Internal Medicine; Nurse Practitioner Family; Physician Assistant; Student in an Organized Health Care Education/Training Program; Admitting Provider Family Medicine; Emergency Provider Emergency Medicine; Visit Provider Family Medicine
DX: I26.09 Other pulmonary embolism with acute cor pulmonale (principal); J96.01 Acute respiratory failure with hypoxia; I50.33 Acute on chronic diastolic (congestive) heart failure; G93.41 Metabolic encephalopathy; J84.9 Interstitial pulmonary disease, unspecified; E87.3 Alkalosis; E87.2 Acidosis; R45.851 Suicidal ideations; K72.90 Hepatic failure, unspecified without coma; F11.20 Opioid dependence, uncomplicated; E87.70 Fluid overload, unspecified; K70.30 Alcoholic cirrhosis of liver without ascites; F39 Unspecified mood [affective] disorder; F43.10 Post-traumatic stress disorder, unspecified; F32.9 Major depressive disorder, single episode, unspecified; E87.6 Hypokalemia; F41.9 Anxiety disorder, unspecified; B18.2 Chronic viral hepatitis C; F17.210 Nicotine dependence, cigarettes, uncomplicated; Z71.6 Tobacco abuse counseling; Z20.822 Contact with and (suspected) exposure to COVID-19; Z88.5 Allergy status to narcotic agent; Z88.6 Allergy status to analgesic agent; Z79.01 Long term (current) use of anticoagulants; Z79.899 Other long term (current) drug therapy
CPT/HCPCS: 36415; 70450; 71045; 71275; 73590; 80048; 80053; 81003; 82140; 82306; 82550; 82607; 82746; 82785; 82947; 83036; 83605; 83735; 83880; 84145; 84443; 84484; 85025; 85027; 85379; 85610; 85652; 85730; 86038; 86039; 86140; 86200; 86331; 86606; 86609; 86769; 87040; 87389; 87635; 93005; 93308; 93970; 94640; 94660; 97110; 97162; 97163; 97530; 99285; C1758; J0456; J0696; J1200; J1650; J1940; J2270; J2543; J2920; J2930; J3370; Q9967